=== PATIENT | female | born 1950 | race Caucasian/White ===

== ENCOUNTER → 2023-09-10 08:38 | Outpatient (REF) | payer MEDICARE, OTHER, SELFPAY ==
[2023-09-10 09:46] LABS: % Basophils 1.4 % (0-2); % Eosinophils 8.3 % (0-6); % Immature Granulocytes 0.1 % (0-0.5); % Lymphocytes 29.9 % (20.5-51.1); % Monocytes 8.4 % (1.7-9.3); % Neutrophils 51.9 % (42.2-75.2); Absolute Basophils 0.1 10^3/uL (0-0.2); Absolute Eosinophils 0.6 10^3/uL (0-0.7); Absolute Lymphocytes 2.1 10^3/uL (1.2-3.4); Absolute Monocytes 0.6 10^3/uL (0.1-0.6); Absolute Neutrophils 3.6 10^3/uL (1.4-6.5); Hematocrit 37.1 % (37.0-47.0); Hemoglobin 11.4 g/dL (12.0-16.0); Mean Corp Hgb Conc. 30.7 g/dL (33.0-37.0); Mean Corpuscular Volume 87.7 fL (81.0-99.0); Mean Platelet Volume 12.2 fL (7.4-10.4); Nucleated Red Blood Cells % 0 %; Platelet Count 247 10^3/uL (130-400); Red Blood Cell Count 4.23 10^6/uL (4.20-5.40); Red Cell Dist. Width 15.9 % (11.5-14.5)
[2023-09-10 10:06] LABS: NT-proBNP 1390 pg/ml
[2023-09-10 10:11] LABS: Protein/creatinine Ratio 0.7; Urine Protein 100 mg/dl
[2023-09-10 10:22] LABS: ALT (SGPT) 23 U/L (0-35); AST (SGOT) 28 U/L (14-36); Albumin 4.1 g/dl (3.5-5.0); Alkaline Phosphatase 104 U/L (38-126); Blood Urea Nitrogen 42 mg/dl (7-17); Calcium 9.1 mg/dl (8.4-10.2); Carbon Dioxide 30 mmol/L (22-30); Chloride 104 mmol/L (98-107); Glucose 77 mg/dl (70-99); HDL Cholesterol 44 mg/dl; LDL Cholesterol, Calculated 50 mg/dl; Potassium 4.5 mmol/L (3.5-5.1); Sodium 141 mmol/L (135-145); Total Bilirubin 0.4 mg/dl (0.2-1.3); Total Cholesterol 114 mg/dl (50-199); Total Protein 6.4 g/dl (6.3-8.2); Triglyceride 101 mg/dl (10-149); Uric Acid 4.4 mg/dl (2.5-6.2); Very Low Density Lipoprotein 20 mg/dl (0-30); eGFR 23.09
[2023-09-10 10:25] LABS: Intact PTH 72.6 pg/ml (13.6-85.8)
[2023-09-10 11:41] LABS: Glycohemoglobin (HgbA1c) 9.8 % (4.0-5.6)
== END ==
LOC: REG 08:38
PROVIDERS: ATTENDING PHYSICIAN Specialist; FAMILY PHYSICIAN Internal Medicine
DX: N18.4 Chronic kidney disease, stage 4 (severe) (principal); E87.5 Hyperkalemia; E11.59 Type 2 diabetes mellitus with other circulatory complications; Z79.4 Long term (current) use of insulin; E78.5 Hyperlipidemia, unspecified; Z00.00 Encounter for general adult medical examination without abnormal findings
CPT/HCPCS: 36415; 80048; 80053; 80061; 82570; 83036; 83880; 83970; 84156; 84550; 85025

== ENCOUNTER 2023-09-13 16:14 | Emergency (ER) | payer MEDICARE, OTHER, SELFPAY ==
[2023-09-13 16:19] VITALS: BP 149/97
--- NOTE | 2023-09-13 17:07 | ED.GENMED ---
History of Present Illness
General
Chief Complaint: DVT/Possible Blood Clot
Source: patient
Exam Limitations: none
Time Seen by Provider: 09/13/23 17:00
Travel History
Have you had any contact with someone who has COVID-19?: No
Do you have any symptoms of coronavirus? Fever > 100 degrees, chills, cough, shortness of breath, sore throat, loss of taste or smell, muscle aches, or headache?: No
History of Present Illness
History of Present Illness:
See MDM
Past History
Past History
ED Past Medical History: CAD, GERD, HTN, Hypercholesterolemia, IDDM and Other (COVID-19, anemia, peripheral vascular disease, chronic kidney disease, celiac artery dissection, anemia, HSP)
ED Past Surgical History: Cardiac
Social History
Tobacco: Non-smoker
Alcohol: Occasional
Drug: None
Personal:
Living: with family
Employment: Employed ([employer] in [employer])
Family History
Family History: Other (Father with CAD, mother with diabetes)
Phy Exam
Physical Exam
Physical Exam:
See MDM
Course
Orders/Labs/Results
Orders:
Orders
09/13/23 16:31
Periph Venous Lwr Ext Rt US [US Periph Venous LOWER Ext RT] Urgent
Comment:
Reason For Exam: pain/swelling
09/13/23 17:07
Oxycodone/Acetaminophen [Percocet 5/325] 1 tablet PO NOW STA
Vital Signs
Initial and Last Documented VS:
Initial Vital Signs
Temp Pulse Resp BP Pulse Ox
98.4 F 73 17 149/97 97
09/13/23 16:19 09/13/23 16:19 09/13/23 16:19 09/13/23 16:19 09/13/23 16:19
Last Documented Vital Signs
Temp Pulse Resp BP Pulse Ox
98.4 F 73 17 149/97 97
09/13/23 16:19 09/13/23 16:19 09/13/23 16:19 09/13/23 16:19 09/13/23 16:19
MDM/Problems Addressed
Differential Diagnosis Includes:
HPI and MDM Narrative:
73-year-old female presenting for right calf pain and swelling. This has been ongoing for a few weeks. She has had a prior arterial stent placed by vascular surgery a few years back. She called her vascular surgeon and was sent to department to
rule out DVT, per patient
Patient denies numbness or tingling or pain when she ambulates. Patient has palpable distal pulses. There is no pallor. There is no clinical signs to suggest arterial stent clot. She does have palpable varicose vein to the right lateral leg.
Will obtain ultrasound to rule out DVT
Physical exam
General: Well appearing and non-toxic
HEENT: protecting airway
Neck: appears supple
CV: No evidence of cyanosis
Resp: No accessory muscle use
Abd: Non-distended
Extremities: Mild tenderness to right calf. Palpable varicose vein to right lateral calf. Distal pulses intact. Cap refill less than 2 seconds. Sensation intact
Neuro: alert
Psych: Normal affect
Skin: Intact
Problems Addressed including Acute and Chronic Conditions affecting care:
1. Leg pain
Acuity: acute
Prognosis: stable
Details: Will obtain ultrasound to rule out DVT. No clinical evidence to suggest arterial clot
Updates
Ultrasound negative for DVT. Patient feels comfortable following up with her vascular surgeon
Differential Diagnosis (but not limited to): Superficial thrombophlebitis, calf strain, DVT
Testing considered: X-ray but no bony tenderness noted
Drug therapy (if applicable): OTC meds, please see d/c instruction regarding Rx drugs
Amount and/or Complexity of Data Reviewed
Clinical info obtained from: Patient
External data reviewed: N/A
Labs I independently reviewed (but not limited to): N/A
Radiology: Ultrasound report reviewed
Pulse Ox: not hypoxic
EKG independently reviewed: N/A
Cut Lace Machine Operator: N/A
Critical Care: N/A
Risk of Complication:
Social Determinants of health: Good social support
Discussed with other providers: N/A
Escalation of Care includes Admit/Obs: After being observed in the Emergency Department, pt stable for discharge.
Occasional wrong word or 'sound a like' substitutions may have occurred due to the inherent limitations of voice recognition software. Read the chart carefully and recognize, using context, where substitutions have occurred.
*Critical Care Note
Total Time (30-74mins, 75-104mins- exclusive of procedures): Not Applicable
ED Attending Note
-
Portions of this chart may have been created with voice recognition software.� Occasional wrong word or��sound alike� substitutions may have occurred due to the inherent limitations of voice recognition software.
Discharge Plan
Departure
Patient Disposition: Home (Routine Discharge)
Date of Disposition: 09/13/23
Time of Disposition: 18:20
Patient with high blood pressure during this ER visit?: Yes
Discharge Problem:
Varicose vein of leg
Instructions: Varicose Veins (DC), BLOOD PRESSURE
Prescriptions:
New
oxycodone 5 mg tablet
5 mg PO Q8H PRN (Reason: Pain) Qty: 7 0RF
No Action
clopidogrel 75 MG tablet
75 mg PO DAILY
ezetimibe 10 MG tablet
10 mg PO DAILY
pantoprazole 40 MG tablet,delayed release (DR/EC)
40 mg PO DAILY
sodium bicarbonate 650 MG tablet
650 mg PO BID
insulin aspart U-100 [Novolog FlexPen U-100 Insulin] 300 UNITS/3 ML insulin pen
2 - 8 units SC .SLIDING SCALE MEALS
pregabalin [Lyrica] 150 MG capsule
300 mg PO HS
zinc sulfate 220 MG capsule
220 mg PO DAILY
insulin glargine [Basaglar KwikPen U-100 Insulin] 100 UNIT/ML insulin pen
38 unit SC HS
fluconazole 100 mg Tablet
100 mg PO DAILY
Patient Comments:
for 10 days -started Tuesday
Rx Instructions:
for 10 days started 10/05
albuterol sulfate 2.5 mg /3 mL (0.083 %) Solution For Nebulization
2.5 mg INHALATION R Q3HPRN PRN (Reason: sob,wheezing)
aspirin 81 MG tablet,chewable
81 mg PO Q48H
biotin 5 mg capsule
10 mg PO DAILY
isosorbide mononitrate 30 mg Tablet Extended Release 24 Hr
30 mg PO DAILY Qty: 30 0RF
levofloxacin 250 mg Tablet
250 mg PO Q48H Qty: 2 0RF
guaifenesin 600 mg Tablet Extended Release 12hr
1,200 mg PO Q12 Qty: 0 0RF
prednisone 10 mg tablet
10 mg PO DIRECTED Qty: 30 0RF
Rx Instructions:
Taper: 40mg daily x 3 days, 30mg daily x 3 days, 20mg daily x 3 days, 10mg daily x 3 days
methylprednisolone [Medrol (Anshul)] 4 mg tablets,dose pack
4 mg PO DAILY Qty: 21 0RF
Referrals:
Joaquin Carlton MD [Family Provider] -
Activity Restrictions/Additional Instructions:
As we discussed, there is a varicose vein in your calf. It is not certain whether or not this is causing your symptoms. Please have this further evaluated by your vascular surgeon.
Interventions
Interventions:
ED- Cardiac Assessment Last Done: 09/13/23 17:31
ED- Pulmonary Assessment Last Done: 09/13/23 17:31
ED-Peripheral Vascular Assessment Last Done: 09/13/23 17:34
ED-Skin Assessment Last Done: 09/13/23 17:31
[2023-09-13] MEDS: PERCOCET 5/325 1 TABLET PO (17:17)
[2023-09-13 18:22] VITALS: BP 138/88
== END 2023-09-13 18:44 | disposition home or self-care (01) ==
LOC: EMR 16:14
PROVIDERS: EMERGENCY PHYSICIAN Student in an Organized Health Care Education/Training Program; FAMILY PHYSICIAN Internal Medicine
DX: I83.91 Asymptomatic varicose veins of right lower extremity (principal); I25.10 Atherosclerotic heart disease of native coronary artery without angina pectoris; K21.9 Gastro-esophageal reflux disease without esophagitis; I10 Essential (primary) hypertension; E78.00 Pure hypercholesterolemia, unspecified; E11.9 Type 2 diabetes mellitus without complications; D64.9 Anemia, unspecified; I73.9 Peripheral vascular disease, unspecified; I12.9 Hypertensive chronic kidney disease with stage 1 through stage 4 chronic kidney disease, or unspecified chronic kidney disease; E11.22 Type 2 diabetes mellitus with diabetic chronic kidney disease; N18.9 Chronic kidney disease, unspecified; K90.0 Celiac disease; Z86.16 Personal history of COVID-19; Z82.49 Family history of ischemic heart disease and other diseases of the circulatory system; Z83.3 Family history of diabetes mellitus
CPT/HCPCS: 99284; 93971

== ENCOUNTER → 2023-10-21 13:58 | Outpatient (REF) | payer MEDICARE, OTHER, SELFPAY | LOC: PAVMRI 13:58 | PROVIDERS: ATTENDING PHYSICIAN Surgery Vascular Surgery; FAMILY PHYSICIAN Internal Medicine | DX: I77.4 Celiac artery compression syndrome (principal); I77.79 Dissection of other specified artery | CPT/HCPCS: 74185; A9585 ==

== ENCOUNTER → 2023-11-01 14:45 | Outpatient (REF) | payer MEDICARE, OTHER, SELFPAY | LOC: RAD 14:45 | PROVIDERS: ATTENDING PHYSICIAN Surgery Vascular Surgery; FAMILY PHYSICIAN Internal Medicine | DX: I73.9 Peripheral vascular disease, unspecified (principal) | CPT/HCPCS: 93922; 93925 ==

== ENCOUNTER → 2023-11-16 12:52 | Outpatient (REF) | payer MEDICARE, OTHER, SELFPAY | LOC: RAD 12:52 | PROVIDERS: ATTENDING PHYSICIAN Internal Medicine | DX: M79.604 Pain in right leg (principal); M54.17 Radiculopathy, lumbosacral region | CPT/HCPCS: 72110 ==

== ENCOUNTER → 2023-12-30 08:29 | Outpatient (REF) | payer MEDICARE, OTHER, SELFPAY ==
[2023-12-30 09:01] LABS: Hemoglobin 11.9 g/dL (12.0-16.0)
[2023-12-30 09:53] LABS: ALT (SGPT) 15 U/L (0-35); AST (SGOT) 23 U/L (14-36); Albumin 4.1 g/dl (3.5-5.0); Alkaline Phosphatase 104 U/L (38-126); Blood Urea Nitrogen 32 mg/dl (7-17); Carbon Dioxide 25 mmol/L (22-30); Chloride 105 mmol/L (98-107); Direct Bilirubin 0.2 mg/dl (0.0-0.4); Glucose 98 mg/dl (70-99); HDL Cholesterol 43 mg/dl; LDL Cholesterol, Calculated 81 mg/dl; Phosphorus 4.4 mg/dl (2.5-4.5); Potassium 4.7 mmol/L (3.5-5.1); Sodium 139 mmol/L (135-145); Total Bilirubin 0.4 mg/dl (0.2-1.3); Total Cholesterol 147 mg/dl (50-199); Total Protein 6.2 g/dl (6.3-8.2); Triglyceride 118 mg/dl (10-149); Very Low Density Lipoprotein 23 mg/dl (0-30); eGFR 24.42
[2023-12-31 09:24] LABS: Glycohemoglobin (HgbA1c) 10.8 % (4.0-5.6)
[2023-12-31 10:15] LABS: Intact PTH 196.3 pg/ml (13.6-85.8)
== END ==
LOC: REG 08:29
PROVIDERS: ATTENDING PHYSICIAN Specialist; FAMILY PHYSICIAN Internal Medicine; OTHER PHYSICIAN Internal Medicine Cardiovascular Disease; REFERRING PHYSICIAN Surgery Vascular Surgery
DX: N18.4 Chronic kidney disease, stage 4 (severe) (principal); E11.59 Type 2 diabetes mellitus with other circulatory complications; E78.5 Hyperlipidemia, unspecified
CPT/HCPCS: 36415; 80053; 80061; 82248; 83036; 83970; 84100; 85018

== ENCOUNTER 2024-02-03 08:56 | Outpatient (RCR) | payer MEDICARE, OTHER, SELFPAY ==
[2024-02-03] MEDS: SODIUM BICARBONATE 1150 MEQ IV (09:31)
[2024-02-03 09:50] VITALS: BP 190/84
[2024-02-03 12:14] VITALS: BP 190/82
--- NOTE | 2024-02-03 15:11 | PTCARENOTE ---
On arrival to OID Bp noted to be elevated . Rechecked manually at 190/84 HR-68. BP rechecked manually post CT BP at 190/82 HR 80. Pt stated she 'has not problems with elevated BP in Months' Pt contacted Dr. Guevara office as he follows patient for
renal insufficiency. Pt reported Dr. Guevara called in script for Hydralazine 25mg daily. pt will garbage pick up worker script today.
== END 2024-02-25 23:59 | disposition home or self-care (01) ==
LOC: OID 08:56
PROVIDERS: ATTENDING PHYSICIAN Surgery Vascular Surgery
DX: I73.9 Peripheral vascular disease, unspecified (principal)
CPT/HCPCS: 75635; 96365; Q9967

== ENCOUNTER → 2024-02-15 09:37 | Outpatient (REF) | payer MEDICARE, OTHER, SELFPAY | LOC: RAD 09:37 | PROVIDERS: ATTENDING PHYSICIAN Internal Medicine | DX: R20.2 Paresthesia of skin (principal); M21.372 Foot drop, left foot; N28.9 Disorder of kidney and ureter, unspecified; R29.898 Other symptoms and signs involving the musculoskeletal system; I73.9 Peripheral vascular disease, unspecified | CPT/HCPCS: 72110 ==

== ENCOUNTER → 2024-02-16 07:44 | Outpatient (REF) | payer MEDICARE, OTHER, SELFPAY | LOC: DHCBC/DCA 07:44 | PROVIDERS: ATTENDING PHYSICIAN Internal Medicine Cardiovascular Disease; FAMILY PHYSICIAN Internal Medicine | DX: Z01.818 Encounter for other preprocedural examination (principal); I25.10 Atherosclerotic heart disease of native coronary artery without angina pectoris | CPT/HCPCS: 78452; 93017; A9500; J2785 ==

== ENCOUNTER → 2024-02-17 15:18 | Outpatient (REF) | payer MEDICARE, OTHER, SELFPAY | LOC: RAD 15:18 | PROVIDERS: ATTENDING PHYSICIAN Internal Medicine; OTHER PHYSICIAN Specialist; OTHER PHYSICIAN Surgery Vascular Surgery; REFERRING PHYSICIAN Internal Medicine Cardiovascular Disease | DX: M21.372 Foot drop, left foot (principal); N28.9 Disorder of kidney and ureter, unspecified; R29.898 Other symptoms and signs involving the musculoskeletal system; I73.9 Peripheral vascular disease, unspecified | CPT/HCPCS: 70450 ==

== ENCOUNTER 2024-02-23 09:22 | Inpatient (IN) | payer MEDICARE, OTHER, SELFPAY ==
[2024-02-20 10:26] VITALS: BMI 27.7
[2024-02-20 11:04] LABS: % Basophils 0.9 % (0-2); % Eosinophils 7.2 % (0-6); % Immature Granulocytes 0.3 % (0-0.5); % Lymphocytes 23.3 % (20.5-51.1); % Monocytes 7.9 % (1.7-9.3); % Neutrophils 60.4 % (42.2-75.2); Absolute Basophils 0.1 10^3/uL (0-0.2); Absolute Eosinophils 0.6 10^3/uL (0-0.7); Absolute Lymphocytes 1.8 10^3/uL (1.2-3.4); Absolute Monocytes 0.6 10^3/uL (0.1-0.6); Absolute Neutrophils 4.7 10^3/uL (1.4-6.5); Hematocrit 34.8 % (37.0-47.0); Hemoglobin 11.3 g/dL (12.0-16.0); Mean Corp Hgb Conc. 32.5 g/dL (33.0-37.0); Mean Corpuscular Hgb 27.4 pg (27.0-31.0); Mean Corpuscular Volume 84.5 fL (81.0-99.0); Mean Platelet Volume 11.9 fL (7.4-10.4); Nucleated Red Blood Cells % 0 %; Platelet Count 261 10^3/uL (130-400); Red Blood Cell Count 4.12 10^6/uL (4.20-5.40); Red Cell Dist. Width 14.5 % (11.5-14.5); White Blood Cell Count 7.8 10^3/uL (4.8-10.8)
[2024-02-20 11:14] LABS: INR 1.08; PT 13.8 Sec (11.4-14.6)
[2024-02-20 11:15] LABS: APTT 31.2 Sec (23.4-35.0)
[2024-02-20 11:22] LABS: Blood Urea Nitrogen 37 mg/dl (7-17); Calcium 9.3 mg/dl (8.4-10.2); Carbon Dioxide 28 mmol/L (22-30); Chloride 105 mmol/L (98-107); Estimated Creatinine Clearance 22 ml/min; Glucose 240 mg/dl (70-99); Potassium 5.4 mmol/L (3.5-5.1); Sodium 142 mmol/L (135-145); eGFR 25.73
[2024-02-23] VITALS (32 sets, daily range): BP systolic 77–229; BP diastolic 34–85; BMI 28.0
[2024-02-23] MEDS: PERIDEX 0.12% ORAL RINSE 15 ML PO (10:24)
[2024-02-23] MEDS: BACTROBAN NASAL 1 GRAM NASAL (10:25)
[2024-02-23] MEDS: NSS 500 IV (10:25)
[2024-02-23 11:01] LABS: Glucose - Point of Care 74 mg/dl (70-99)
--- NOTE | 2024-02-23 11:57 | W.SUR.PREOP ---
Addendum entered and electronically signed by Chapin Stahl MD 02/23/24 12:16:
Notes patient had had positive stress test. Evaluated by rate analyst. I spoke at length to Dr. Melvin Danielson. He had felt that a catheterization may not be as beneficial likely due to her small vessel disease that may not be amenable to
percutaneous intervention given her other medical concerns including chronic kidney insufficiency, he felt that for a lower cardiac risk procedure such as femoral endarterectomy (lower stress on the heart), he fell at reasonable to proceed. He
discussed with the patient also the option of performing catheterization for him. Patient declined however. Therefore we will proceed as planned as per his recommendation.
Original Note:
Pre-Operative Surgical Note
-
I have examined this patient prior to the performance of the scheduled procedure.
The patient's condition is unchanged from the time of the current History and
Physical and the patient is able to undergo the scheduled procedure.
[2024-02-23 13:35] LABS: Glucose - Point of Care 50 mg/dl (70-99)
[2024-02-23 14:14] LABS: Glucose - Point of Care 180 mg/dl (70-99)
--- NOTE | 2024-02-23 15:56 | W.SUR.POST ---
Surgical Immediate Post Op
Note
Pre Op Diagnosis: PAD
Post Op Diagnosis: same
Procedure Performed: Right femoral endarterectomy with bovine pericardial patch angioplasty, shockwave lithotripsy and stent right iliac artery
Primary Surgeon: Favio
Secondary Surgeons: Kingsley MURRAY
Anesthesia: general
Estimated Blood Loss: 50cc
Fluids: see anesthesia flow sheet
Drains/Shunts: none
Specimens/Cultures: femoral plaque
Doppler/Duplex/Angio (Y/N): Y
Complications: none
Operative Findings: 1+DP pulse
[2024-02-23 17:11] LABS: Glucose - Point of Care 162 mg/dl (70-99)
--- NOTE | 2024-02-23 17:30 | SUR.PHASEI ---
Bp drop in PACU, 90/45-95/48. Anesthesia made aware and vascular SOUP PERSON Dreger informed. patient started on Neosynephrine gtt. Tiffani george RN BSN.
[2024-02-23 17:33] LABS: Hematocrit 32.3 % (37.0-47.0); Hemoglobin 10.5 g/dL (12.0-16.0); Mean Corp Hgb Conc. 32.5 g/dL (33.0-37.0); Mean Corpuscular Hgb 27.3 pg (27.0-31.0); Mean Corpuscular Volume 84.1 fL (81.0-99.0); Mean Platelet Volume 12.3 fL (7.4-10.4); Platelet Count 207 10^3/uL (130-400); Red Blood Cell Count 3.84 10^6/uL (4.20-5.40); Red Cell Dist. Width 14.7 % (11.5-14.5); White Blood Cell Count 12.7 10^3/uL (4.8-10.8)
[2024-02-23 17:39] LABS: Blood Urea Nitrogen 34 mg/dl (7-17); Calcium 7.9 mg/dl (8.4-10.2); Carbon Dioxide 18 mmol/L (22-30); Estimated Creatinine Clearance 25 ml/min; Glucose 158 mg/dl (70-99); eGFR 31.27
[2024-02-23] MEDS: NEO-SYNEPHRINE 250 IV (17:39)
[2024-02-23 17:48] LABS: Chloride 113 mmol/L (98-107); Potassium 3.8 mmol/L (3.5-5.1); Sodium 143 mmol/L (135-145)
[2024-02-23] MEDS: NSS 1000 IV (17:50)
--- NOTE | 2024-02-23 17:59 | SUR.PHASEI ---
Report to George INFANTRY INDIRECT FIRE CREWMEMBER. Patient restful. Spoke to her son. Tiffani Phillips RN BSN.
[2024-02-23] MEDS: PLAVIX 300 MG PO (18:06)
--- NOTE | 2024-02-23 18:45 | PTCARENOTE ---
Rec'd patient from PACU. Neurovascular check completed with AUTISTIC TEACHER. +Doppler pulses. B/l LE pink, cool. Right groin aquacell dressing intact. VSS. Chon and IVFs infusing as ordered.
[2024-02-23 19:29] LABS: Glucose - Point of Care 216 mg/dl (70-99)
[2024-02-23] MEDS: NOVOLOG FLEXPEN-MODERATE RESISTANCE 3 UNITS SC (19:37)
[2024-02-23] MEDS: DILAUDID 0.5 MG IV (19:58)
[2024-02-23] MEDS: PROTONIX 40 MG PO (19:58)
[2024-02-23] MEDS: SODIUM BICARBONATE 650 MG PO (19:58)
[2024-02-23] MEDS: APRESOLINE PO (21:15)
[2024-02-23 21:42] LABS: Glucose - Point of Care 248 mg/dl (70-99)
[2024-02-23] MEDS: LANTUS 0.38 UNITS SC (22:32)
[2024-02-23] MEDS: HEPARIN 5000 UNITS SC (22:36)
[2024-02-23] MEDS: LIPITOR 40 MG PO (22:36)
[2024-02-23] MEDS: ULORIC 40 MG PO (22:36)
[2024-02-23 23:08] LABS: INR 1.12; PT 14.4 Sec (11.4-14.6)
[2024-02-23 23:09] LABS: APTT 34.1 Sec (23.4-35.0)
[2024-02-24] VITALS (23 sets, daily range): BP systolic 112–190; BP diastolic 53–109; BMI 28.8
[2024-02-24] MEDS: ROXICODONE 5 MG PO ×2 (02:26→08:20)
[2024-02-24] MEDS: NSS 1000 IV (04:44)
[2024-02-24] MEDS: DILAUDID 0.5 MG IV ×2 (04:44→12:45)
[2024-02-24 05:15] LABS: Hematocrit 33.2 % (37.0-47.0); Hemoglobin 10.6 g/dL (12.0-16.0); Mean Corp Hgb Conc. 31.9 g/dL (33.0-37.0); Mean Corpuscular Volume 84.5 fL (81.0-99.0); Mean Platelet Volume 12.3 fL (7.4-10.4); Platelet Count 232 10^3/uL (130-400); Red Blood Cell Count 3.93 10^6/uL (4.20-5.40); Red Cell Dist. Width 14.9 % (11.5-14.5); White Blood Cell Count 15.7 10^3/uL (4.8-10.8)
[2024-02-24 05:23] LABS: INR 1.19; PT 15.2 Sec (11.4-14.6)
[2024-02-24 05:24] LABS: APTT 30.6 Sec (23.4-35.0)
[2024-02-24 05:35] LABS: Blood Urea Nitrogen 38 mg/dl (7-17); Calcium 8.8 mg/dl (8.4-10.2); Carbon Dioxide 20 mmol/L (22-30); Chloride 111 mmol/L (98-107); Estimated Creatinine Clearance 23 ml/min; Glucose 171 mg/dl (70-99); Potassium 5.2 mmol/L (3.5-5.1); Sodium 141 mmol/L (135-145); eGFR 27.37
[2024-02-24 08:18] LABS: Glucose - Point of Care 138 mg/dl (70-99)
[2024-02-24] MEDS: NOVOLOG FLEXPEN-MODERATE RESISTANCE SC ×2 (08:18→17:50)
[2024-02-24] MEDS: APRESOLINE 25 MG PO ×2 (08:19→19:56)
[2024-02-24] MEDS: PLAVIX 75 MG PO (08:20)
[2024-02-24] MEDS: VITAMIN D3 (cholecalciferol) 50 MCG PO (08:20)
[2024-02-24] MEDS: HEPARIN 5000 UNITS SC ×2 (08:20→16:54)
[2024-02-24] MEDS: SODIUM BICARBONATE 650 MG PO ×2 (08:20→19:56)
[2024-02-24] MEDS: PROTONIX 40 MG PO ×2 (08:20→19:56)
[2024-02-24] MEDS: ZETIA 10 MG PO (08:20)
--- NOTE | 2024-02-24 09:05 | W.PN.VS ---
Today's Communication / Plan
-
Seen and assessed with Dr. Cortez
Assessment/Plan
-
POD1 Right femoral endarterectomy with bovine pericardial patch angioplasty, shockwave lithotripsy and stent right iliac artery
Plan:
-Out of bed/ambulate
-Wean O2 to off
-Increase diet
-DC IV fluids
-May transfer to [address] [place] [address]/[address] [place] [address]
Subjective Data
-
Date of Service: February 24, 2024
Patient seen at bedside this a.m. with Dr. Cortez. Patient offers no complaints at this time and expresses her wishes to go home. No events overnight
Objective Data
-
Vital Signs
Temp Pulse Resp BP Pulse Ox
98.4 F 83 9 141/71 98
02/24/24 07:30 02/24/24 05:15 02/24/24 05:15 02/24/24 05:00 02/24/24 05:15
Intake and Output
02/23/24 02/24/24 02/25/24
06:59 06:59 06:59
Intake Total 961 / 961
Output Total 695 / 695
Balance 266 / 266
Intake:
IV fluids (Total) 961 / 961
NSS 880 / 880
neosynephrine 6 / 6
norm 75 / 75
Output:
UrineDana 695 / 695
Lab Results
02/24/24 05:01
02/24/24 05:01
Calcium 8.8 mg/dl (8.4-10.2) 02/24/24 05:01
Physical Exam
-
AAOx3
No tachypnea on 2 L nasal cannula
No tachycardia
Abdomen soft
Groin sites clean, dry, intact, no drainage noted, flat and soft
Bilateral feet warm, palpable DP pulse
[2024-02-24] MEDS: LASIX 40 MG PO (10:31)
[2024-02-24] MEDS: ULTRAM 25 MG PO ×2 (10:32→16:54)
[2024-02-24] MEDS: ALDACTONE PO (11:22)
--- NOTE | 2024-02-24 11:33 | W.[place]-PDMP ---
[place]-PD[place]
-
Checked the [place]- Prescription Drug Monitoring Program website, no red flags identified; safe to proceed with prescription. Called in tramadol as patient prefers this, she last filled 30 days of tramadol just over 1 month ago
[2024-02-24 12:44] LABS: Glucose - Point of Care 171 mg/dl (70-99)
[2024-02-24] MEDS: NOVOLOG FLEXPEN-MODERATE RESISTANCE 1 UNITS SC (12:51)
--- NOTE | 2024-02-24 12:54 | CON.INTV ---
Consultation
Consultation Request
Date/Time Consultation Requested: 02/24/2024
Date/Time Consultation Performed: 02/24/2024
Requesting Provider: Dr. Stahl
Performing Provider: Dr. Davon Bernardo
Reason for Consultation: Status post femoral endarterectomy
Medical History
-
History of Present Illness:
74-year-old woman with multiple comorbidities, including peripheral arterial disease. She was deemed candidate for revascularization. And underwent right femoral endarterectomy with patch angioplasty on 02/24/2024. Currently sitting out of bed.
Denies any significant pain. Mild discomfort on the right groin.
Denies shortness of breath.
Denies cough, wheezing or phlegm production.
Hemodynamically stable overnight.
Tolerating diet
Past Medical History
Past Medical History: Other (See assessment and plan)
Social History
Tobacco: Non-smoker
Alcohol: Occasional
Drug: None
Living: With Family
Employment: Employed
Family History
Family History: Reviewed & Not Pertinent
Allergies / Home Medications
Allergies
Allergy/AdvReac Type Severity Reaction Status Date / Time
MARCELL Inhibitors Allergy Swelling/AN Verified 02/17/24 09:24
[Marcell Inhibitors] GIOEDEMA
chamomile flower Allergy Rash Verified 02/17/24 09:24
Sulfa (Sulfonamide Allergy Rash Verified 02/17/24 09:24
Antibiotics)
sulfite Allergy VASCULITIS Verified 02/17/24 09:24
Home Medications
�Medication �Instructions �Recorded �Confirmed �Last Taken �Type
clopidogrel 75 mg tablet 75 mg PO DAILY Blood clot 05/17/19 02/23/24 02/09/24 History
prevention/tx
ezetimibe 10 mg tablet 10 mg PO DAILY High cholesterol 05/17/19 02/23/24 02/22/24 20:00 History
insulin aspart U-100 100 unit/mL 2 - 8 units SC .SLIDING SCALE 05/08/20 02/17/24 02/03/24 06:00 History
(3 mL) subcutaneous pen (Novolog MEALS Diabetes 2 units
FlexPen U-100 Insulin aspart)
sodium bicarbonate 650 mg tablet 650 mg PO BID Electrolyte Repletion 05/08/20 02/23/24 02/22/24 20:00 History
pregabalin 150 mg capsule (Lyrica) 300 mg PO HS Pain 07/11/20 02/23/24 02/22/24 20:00 History
insulin glargine 100 unit/mL (3 38 unit SC HS Diabetes 07/10/21 02/23/24 02/22/24 22:00 History
mL) subcutaneous pen (Basaglar
KwikPen U-100 Insulin)
atorvastatin 40 mg tablet 40 mg PO HS High Cholesterol 02/03/24 02/23/24 02/22/24 20:00 History
cholecalciferol (vitamin D3) 50 50 mcg PO DAILY Supplement 02/03/24 02/23/24 02/22/24 05:30 History
mcg (2,000 unit) capsule (Vitamin
D3)
coenzyme Q10 400 mg capsule (Co 400 mg PO HS Supplement 02/03/24 02/23/24 02/21/24 20:30 History
Q-10)
febuxostat 40 mg tablet 40 mg PO HS Gout 02/03/24 02/23/24 02/22/24 20:00 History
furosemide 40 mg tablet (Lasix) 40 mg PO DAILY Fluid 02/03/24 02/23/24 02/22/24 05:30 History
Retention/Swelling
spironolactone 25 mg tablet 25 mg PO DAILY Fluid 02/03/24 02/23/24 02/22/24 20:00 History
Retention/Swelling
hydralazine 25 mg tablet 25 mg PO BID Blood Pressure 02/17/24 02/23/24 02/22/24 20:00 History
tramadol 25 mg tablet 25 mg PO Q6H PRN pain 02/23/24 02/23/24 02/21/24 20:00 History
tramadol 50 mg tablet 25 mg (1/2 x 50 mg) PO Q6HPRN PRN 02/24/24 Unknown Rx
MODERATE PAIN #10 tabs
Review of Systems
Vitals / Labs / Diagnostic Testing
Vital Signs
Temp Pulse Resp BP Pulse Ox
98.4 F 82 18 190/79 98
02/24/24 12:39 02/24/24 12:39 02/24/24 12:39 02/24/24 12:39 02/24/24 12:39
Lab Data
02/24/24 05:01
02/24/24 05:01
Laboratory Results
02/23/24 02/24/24
17:11 05:01
PT 14.4 15.2 H
INR 1.12 1.19
APTT 34.1 30.6
Microbiology
02/20/24 10:38 Nose MRSA Screen - Final
No Methicillin Resistant Staphylococcus aureus isolated.
Diagnostic Testing:
Physical Exam
-
HEENT: Normocephalic
Cardiovascular: S1/S2
Respiratory: Clear and Non-Labored Respirations
GI: Soft and Non Distended
Neurology: Awake, Alert and Oriented
Skin: Warm
General: Comfortable
Assessment
-
-Status post right femoral endarterectomy with bovine pericardial patch angioplasty, shockwave lithotripsy and stent right iliac artery-Dr. Stahl 02/23/2024
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
CAD, s/p stents
Chronic bronchitis
COVID pneumonia: adm DH 12-17 to 30 '20 (adm post syncope), received dexamethasone/remdesivir, weaned off O2 PTD
Developed mild COVID-associated ILD changes
HTN
CKD
DM
GERD
Tonsillectomy
Non-smoker
ACEi-related angioedema
Henoch-Schonlein purpura
Gastric bypass 2010
ALISHA, mild, with nocturnal hypoxemia
PAD, SFA stent Apr 2020
Sulfa allergy: rash, vasculitis
-
Plan recommendation:
Postoperative surgical intensive care unit monitoring
Supplemental oxygen as needed
Incentive spirometry
Aspiration precautions
Nebulizers if needed-currently not bronchospastic
Chest x-ray 02/23/2024: Reviewed showed stable chronic parenchymal changes. No acute pulmonary disease
Neuro and vascular checks per protocol
Vascular surgery following-correspondence and operative notes reviewed
Cortez has been discontinued
Arterial line has been discontinued
Increase activity as able
Possible discharge planning
Restart outpatient medications
Follow hemoglobin-no evidence for bleeding from
Right groin is without hematoma. Mildly tender.
Peripheral pulses in the
DVT prophylaxis
Advance diet
Increase activity as able
-
Transferred to floors.
Critical care team will sign off.
Please call pulmonary if any respiratory issues arise
--- NOTE | 2024-02-24 13:20 | PTCARENOTE ---
Received pt this am c/o of some discomfort to r groin site/numbness at inner thigh area and numbness to l foot prior to admission. Both feet warm, normal movement good cap refill doppler pulses as charted but unable to consistently find l pt,
intact l dp. Pt assisted up to chair, tolerated well. IVF capped and enrique removed as ordered. Pt assisted to bathroom and voided prior to transfer to new room. Report to Jessica prior to transfer to new room. Pt reported she would notify
spouse of new room. He was made aware this am that she was downgraded. Otherwise please refer to flowsheet.
[2024-02-24] MEDS: MIRALAX PO (14:37)
[2024-02-24] MEDS: APRESOLINE 10 MG IV (14:37)
[2024-02-24] MEDS: TYLENOL 650 MG PO (14:39)
[2024-02-24] MEDS: MORPHINE SULFATE 2 MG IV ×2 (14:39→19:56)
--- NOTE | 2024-02-24 14:39 | CM ---
met with patient at bedside.patient lives with her in house with 3-4 maeve,her bed and bath is on the second level.she amb i and is I with her adl.her pcp is dr molly mcintyre and she uses [address] in [place].
patient has had a vn after she had covid,no episodes of ip rehab.
patient is pod#1 left femoral endartrectomy/bovine pericardial patch angioplasty/right iliac artry stent.wean o2,oob/ambulate,increase diet,pt/ot evals pending.patient was not sure she wanted home care and wants to wait until she is seen by
therapy.tx to 2 north or 2 south..patient with suportive .Plan:home vs vn/home pt.
--- NOTE | 2024-02-24 16:55 | OR.RPT ---
Operative Report
Operative Report
PROCEDURE DATE: 02/23/2024
Preoperative diagnosis: Ischemic rest pain, severe multilevel PAD right lower extremity.
Postoperative diagnosis: Same
Procedure:
1. Extensive right ilio femoral endarterectomy (distal external iliac artery, common femoral artery, proximal profunda femoris artery, superficial femoral artery) with bovine pericardial patch angioplasty.
2. Aortogram and pelvic angiogram.
3. Shockwave intravascular lithotripsy angioplasty with 9 mm shockwave L6 balloon right common iliac artery.
4. Placement of balloon mounted Newport Viabahn 8 mm x 59 mm covered stent right common iliac artery.
5. Supervision and interpretation.
Surgeon: Favio
I&C Technician: ESTEFANY Wynn required for all aspects of open surgical portion of procedure including assistance with traction/countertraction, following a suture line, assistance with closure.
Complications: None
Anesthesia: General
Indications for procedure:
Severe claudication and ischemic rest pain. Risk/benefits/alternatives of right lower extremity revascularization were all fully discussed with the patient. She understood all wish to proceed.
Description of procedure:
Patient was identified brought to the operating room placed on the table in supine position. After the adequate administration of anesthesia she was prepped and draped in the standard surgical fashion. A standard preoperative timeout was
undertaken and everybody was in agreement the plan. A longitudinal incision was made in the right groin that was carried through skin subcutaneous tissue. Using the electrocautery dissected through the subcutaneous tissue. Any lymphatic type
vessels or tissue were ligated between silk ties and then divided. I then identified the common femoral artery as it emerged from underneath inguinal ligament. It was noted to be hardened with calcified plaque. I continued to dissect it
peripherally on its anterior surface until I identified the femoral bifurcation. The superficial femoral artery was then dissected for approximately 3 to 4 cm and circumferentially dissected and a vessel loop passed around it. I now then dissected
the origin of the profunda femoris artery. I dissected carefully to the first branch point. I then began dissecting beyond here. However I noticed that it did not really soften up anywhere. There was some calcified eccentric plaque throughout
the artery making it hard to palpation. I confirmed on CT scan imaging as well that there was really no soft spot on the profunda even extending very far down. There was some plaque throughout. Therefore I found a soft'rudolph spot that I felt was
reasonable to clamp, and circumferentially dissected it here. Passed a vessel loop around it. Now I dissected any additional femoral branches including a posterior profunda branch proximally, and an additional posterior common femoral artery
branch. I now dissected underneath the inguinal ligament using a [place] type retractor to retract the ligament upwards. Any crossing veins were ligated between silk ties and divided. I noted the right circumflex iliac artery branch and
circumferentially dissected this and passed a vessel loop around it. A couple centimeters proximal to here I could palpate the end of the plaque. This was quite a proximal dissection extent, but I was able to circumferentially dissect there and
passed a vessel loop around where it was softer and clamp will. At this point I then gave the patient an appropriate dose of heparin. Once this had circulated for 3 minutes I clamped my outflow arteries or tightened my Vesseloops which had been
doubled. I then placed a Derra clamp on the distal external iliac artery. I now made arteriotomy on the distal common femoral artery and extended it distally onto the superficial femoral artery for a couple centimeters. I then extended proximally
up to the very proximal common femoral artery/distal external iliac artery. There was bulky calcified plaque throughout this entire bed, and the plaque resulted in essentially occlusion at the origin of the profunda with a very bulky nodule of
plaque. In addition in the mid to distal common femoral artery there were 2 locations where it resulted in severe stenoses. I now used a [place] to create an endarterectomy plane and endarterectomized the plaque from the mid common femoral artery
out to the superficial femoral artery. The plaque was bulky in the superficial femoral artery and I did tease it out. However there was some residual plaque still in the superficial femoral artery. However I just grasped the plaque now and
everted plaque out of the origin of the profunda. I then tease this plaque out and cut it/transected in the proximal common femoral artery. This plaque was then sent off for specimen. I now grasped the additional plaque posteriorly in the
proximal common femoral artery and used a [place] to endarterectomized it all the way back close to the clamp. I was able to shift my clamps slightly more cephalad. I then tease the plaque out completely pulling it out of the proximal common femoral
and even the distal external iliac artery well proximal to my end of the arteriotomy. I could look up the barrel of the arteriotomy site in the common femoral and distal external iliac artery and could see the endpoint here. Any fine debris was
removed with fine forceps. But otherwise the endpoint looked nice. I then removed any other debris throughout the endarterectomy bed with fine forceps. I now carefully inspected the origin of the profunda. There was still some circumferential
thickening of the intima or plaque about a centimeter beyond the origin where it ended the plaque endpoint prior by pulling it out. However I just freshen the edges of that plaque/residual intima such that any fine debris or frayed debris was
removed. I now had a nice circular ring of slight thickening/plaque but it did not result in any residual stenosis in the profound at this point. Given that the plaque extended continuously throughout the profunda I felt that this was a very good
endpoint. I now turned my attention to the superficial femoral artery. There was extensive plaque throughout the superficial femoral artery based on imaging as well. I now continue to dissect a couple centimeters further and shifted my plaque but
there was no endpoint to the hard plaque. Therefore had to place a clamp on the superficial femoral artery more distally. I then tease my plaque out further and was able to achieve a reasonable endpoint. As with the profunda there was still a
ring of continuous plaque but now the resultant lumen was reasonable. Any fine debris was removed with fine forceps. I felt that this was is good as endpoints as I could achieve given the diffuse extensive nature of the atherosclerosis. At this
point I irrigated heparinized saline. I then used a long bovine pericardial patch as well patch angioplasty with a running 5-0 Prolene suture. Prior to completing and tying down my suture line I backbled each branch of the artery and then flushed
heparinized saline again and then completed and tied in my suture line. Now I released flow in the [place] arteries. There is excellent pulsatile flow throughout the patched arteries and into the superficial femoral and profunda femoris arteries.
Now I punctured the patch using a micropuncture needle in the mid segment of the patch in a retrograde fashion (cephalad). I then advanced a micropuncture sheath and then exchanged for a 0.035 inch wire and a 7 Persian sheath. My wire went directly
up into the aorta. I then advanced a glide catheter and performed an arteriogram to identify the common iliac artery and the iliac bifurcation on the right side. As noted on CT scan imaging there was bulky plaque in the proximal right common iliac
artery. I now exchanged for a 0.018 inch wire and used a 9 mm intravascular lithotripsy balloon (shockwave L6) for plaque modification due to the severe bulky nature of the plaque (I did not think that a stent primarily without plaque modification
would expand out sufficiently and would potentially result in failure if not performing intravascular lithotripsy). I then performed repeated cycles in the standard fashion of low pressure (4 rock) inflation of the balloon and administration of the
intravascular lithotripsy. And then inflation to 6 rock, followed by deflation and then repositioning of the balloon. This was done several times to achieve adequate lithotripsy of the plaque. Next, I exchanged for a 0.035 inch wire and then
primarily stented the segment of bulky plaque/stenosis since there was significant residual stenosis even after the intravascular lithotripsy using a Newport VBX 8 mm x 59 mm covered stent. Care was taken to avoid coverage of the internal iliac artery
origin. Completion angiogram now demonstrated excellent result with widely patent stent and good flow through it. The external iliac artery appeared generally patent with no significant stenosis. The endarterectomy site endpoints appeared nice
with no significant residual stenosis. (The femoral angiogram was performed and demonstrated this). At this point I was very satisfied. I irrigated. I achieved full hemostasis. I gave protamine to reverse the heparin. I confirmed hemostasis.
I then closed in layers using a couple layers of 2-0 Vicryl running suture to reapproximate the femoral sheath and the subcutaneous/lymphatic layers. We then closed the more superficial layers with 3-0 Vicryl running deep dermal layer followed by 4
Monocryl subcuticular stitch. Dermabond was applied. The patient tolerated the procedure well. Upon completion she had a weakly palpable DP pulse.
[2024-02-24 17:29] LABS: Glucose - Point of Care 145 mg/dl (70-99)
[2024-02-24 22:17] LABS: Glucose - Point of Care 89 mg/dl (70-99)
[2024-02-24] MEDS: ULORIC 40 MG PO (22:25)
[2024-02-24 23:52] LABS: Glucose - Point of Care 109 mg/dl (70-99)
--- NOTE | 2024-02-25 | W.PN.UPDATE ---
Update Note
Progress Note Update
pt with poor appetite today. BG 89. Due for lantus 38units
HS snack encouraged
After HS snack BG 109--> will decrease lantus tonight with poor appetite
[2024-02-25] MEDS: LANTUS SC (00:07)
[2024-02-25] MEDS: LANTUS 0.15 UNITS SC (00:13)
[2024-02-25] MEDS: LIPITOR 40 MG PO (00:14)
[2024-02-25] MEDS: HEPARIN 5000 UNITS SC ×3 (00:14→16:35)
[2024-02-25 07:32] VITALS: BP 111/62
[2024-02-25 08:11] LABS: Glucose - Point of Care 108 mg/dl (70-99)
--- NOTE | 2024-02-25 08:38 | W.PN.VS ---
Today's Communication / Plan
-
Discharge
Assessment/Plan
-
POD2 Right femoral endarterectomy with bovine pericardial patch angioplasty, shockwave lithotripsy and stent right iliac artery
Plan:
Home
F/U with Stahl in the office
Subjective Data
-
Date of Service: February 25, 2024
Doing great
No events overnight
Interested in going home
Objective Data
-
Vital Signs
Temp Pulse Resp BP Pulse Ox
98.4 F 90 17 111/62 96
02/25/24 07:32 02/25/24 07:32 02/25/24 07:32 02/25/24 07:32 02/25/24 07:32
Intake and Output
02/24/24 02/25/24 02/26/24
06:59 06:59 06:59
Intake Total 1041 / 1121 1500 / 1500
Output Total 695 / 695 150 / 150
Balance 346 / 426 1350 / 1350
Intake:
Oral fluids 1180 / 1180
IV fluids (Total) 1041 / 1121 320 / 320
NSS 880 / 880
Nss 1,000 ml @ 80 mls/hr IV . 80 / 160 320 / 320
[id number] [facility] Rx#:[id number]
neosynephrine 6 / 6
norm 75 / 75
Output:
Urine, Cortez 695 / 695 150 / 150
Other:
Number of approximated SMALL 1
amounts of urine
Number of approximated MODERATE 1
amounts of urine
Calcium 8.8 mg/dl (8.4-10.2) 02/24/24 05:01
Physical Exam
-
NAD
Alert/oriented
Non labored breathing
Right groin incision clean/dry
Feet warm bilat
[2024-02-25] MEDS: NOVOLOG FLEXPEN-MODERATE RESISTANCE SC (09:20)
[2024-02-25] MEDS: PROTONIX 40 MG PO ×2 (09:25→20:26)
[2024-02-25] MEDS: ZETIA 10 MG PO (09:25)
[2024-02-25] MEDS: PLAVIX 75 MG PO (09:25)
[2024-02-25] MEDS: SODIUM BICARBONATE 650 MG PO ×2 (09:25→20:26)
[2024-02-25] MEDS: MIRALAX 17 GRAMS PO (09:25)
[2024-02-25] MEDS: LASIX 40 MG PO (09:25)
[2024-02-25] MEDS: VITAMIN D3 (cholecalciferol) 50 MCG PO (09:25)
[2024-02-25] MEDS: APRESOLINE PO (09:26)
[2024-02-25] MEDS: ALDACTONE PO (09:26)
[2024-02-25 09:30] LABS: Hematocrit 34.4 % (37.0-47.0); Hemoglobin 11.2 g/dL (12.0-16.0); Mean Corp Hgb Conc. 32.6 g/dL (33.0-37.0); Mean Corpuscular Hgb 27.8 pg (27.0-31.0); Mean Corpuscular Volume 85.4 fL (81.0-99.0); Mean Platelet Volume 12.2 fL (7.4-10.4); Platelet Count 219 10^3/uL (130-400); Red Blood Cell Count 4.03 10^6/uL (4.20-5.40); Red Cell Dist. Width 15.1 % (11.5-14.5); White Blood Cell Count 11.9 10^3/uL (4.8-10.8)
[2024-02-25 09:49] LABS: Blood Urea Nitrogen 39 mg/dl (7-17); Calcium 9.1 mg/dl (8.4-10.2); Carbon Dioxide 24 mmol/L (22-30); Chloride 105 mmol/L (98-107); Estimated Creatinine Clearance 24 ml/min; Glucose 105 mg/dl (70-99); Potassium 4.7 mmol/L (3.5-5.1); Sodium 142 mmol/L (135-145)
[2024-02-25 10:32] LABS: Glucose - Point of Care 101 mg/dl (70-99)
--- NOTE | 2024-02-25 10:42 | CM ---
Addendum entered by Lesley Jade 02/25/24 15:16:
Patient indicated patient was more confused today and has concerns about taking her home. PT/OT recommending acute rehab/SNF if confusion is not baseline, vs home with home VN if patient baseline is same as previously. Further medical work
up ongoing. CM will continue to follow for discharge planning needs.
Plan; home with VN vs SNF; pending baseline per PT/OT
Original Note:
Patient seen at bedside, IMM completed and signed form placed on chart. Patient to be assessed by PT/OT and functional needs to confirm ability to go home. Per nursing patient to have further testing prior to discharge. CM will continue to follow
for discharge planning needs.
Plan; home with VN vs SNF vs home with no needs pending assessments/ medical treatment plan
[2024-02-25 10:56] VITALS: BP 175/79; BP 183/75; PULSE 87; O2SAT 99
[2024-02-25 12:09] LABS: Glucose - Point of Care 158 mg/dl (70-99)
[2024-02-25 12:45] LABS: Urine Albumin Trace (Neg - Trace); Urine Bilirubin Negative (Negative); Urine Character Clear (Clear); Urine Color Yellow; Urine Glucose Negative (Negative); Urine Ketone Negative (Negative); Urine Leukocyte Negative (Negative); Urine Nitrite Negative (Negative); Urine Occult Blood Negative (Negative); Urine Urobilinogen Negative (Neg - 1+)
[2024-02-25] MEDS: NOVOLOG FLEXPEN-MODERATE RESISTANCE 1 UNITS SC ×2 (12:46→16:39)
[2024-02-25 15:47] VITALS: BP 117/67
[2024-02-25 16:35] LABS: Glucose - Point of Care 150 mg/dl (70-99)
[2024-02-25] MEDS: MORPHINE SULFATE 2 MG IV (16:48)
[2024-02-25] MEDS: APRESOLINE 25 MG PO (20:26)
[2024-02-25 21:34] LABS: Glucose - Point of Care 120 mg/dl (70-99)
[2024-02-25 23:07] VITALS: BP 113/63
[2024-02-26] VITALS (10 sets, daily range): BP systolic 128–211; BP diastolic 69–94
[2024-02-26] MEDS: LIPITOR 40 MG PO ×2 (00:01→22:30)
[2024-02-26] MEDS: ULORIC 40 MG PO ×2 (00:02→22:30)
[2024-02-26] MEDS: HEPARIN 5000 UNITS SC ×4 (00:04→23:28)
[2024-02-26 00:05] LABS: Glucose - Point of Care 114 mg/dl (70-99)
[2024-02-26] MEDS: LANTUS 0.38 UNITS SC ×2 (00:19→22:43)
[2024-02-26 07:49] LABS: Glucose - Point of Care 94 mg/dl (70-99)
[2024-02-26] MEDS: NOVOLOG FLEXPEN-MODERATE RESISTANCE SC ×3 (08:25→16:56)
[2024-02-26] MEDS: MIRALAX 17 GRAMS PO (08:27)
[2024-02-26] MEDS: LASIX 40 MG PO (08:27)
[2024-02-26] MEDS: SODIUM BICARBONATE 650 MG PO ×2 (08:27→20:43)
[2024-02-26] MEDS: APRESOLINE 25 MG PO ×2 (08:27→20:44)
[2024-02-26] MEDS: ZETIA 10 MG PO (08:27)
[2024-02-26] MEDS: PLAVIX 75 MG PO (08:27)
[2024-02-26] MEDS: ALDACTONE 25 MG PO (08:28)
[2024-02-26] MEDS: PROTONIX 40 MG PO ×2 (08:28→20:43)
[2024-02-26] MEDS: VITAMIN D3 (cholecalciferol) 50 MCG PO (08:28)
--- NOTE | 2024-02-26 10:17 | PTCARENOTE ---
Patient is very confused and forgetful. Patient has set of bed alarm multiple times this shift. Overnight RN stated patient AAOx2/3. Patient is only AAO to herself . made aware.
[2024-02-26 11:13] LABS: % Basophils 0.5 % (0-2); % Eosinophils 0.4 % (0-6); % Immature Granulocytes 0.4 % (0-0.5); % Lymphocytes 12.9 % (20.5-51.1); % Monocytes 9.5 % (1.7-9.3); % Neutrophils 76.3 % (42.2-75.2); Absolute Basophils 0.1 10^3/uL (0-0.2); Absolute Eosinophils 0.1 10^3/uL (0-0.7); Absolute Immature Granulocytes 0.1 10^3/uL (0-0.05); Absolute Lymphocytes 1.6 10^3/uL (1.2-3.4); Absolute Monocytes 1.1 10^3/uL (0.1-0.6); Absolute Neutrophils 9.2 10^3/uL (1.4-6.5); Hematocrit 36.8 % (37.0-47.0); Hemoglobin 11.8 g/dL (12.0-16.0); Mean Corp Hgb Conc. 32.1 g/dL (33.0-37.0); Mean Corpuscular Hgb 27.2 pg (27.0-31.0); Mean Corpuscular Volume 84.8 fL (81.0-99.0); Mean Platelet Volume 12.1 fL (7.4-10.4); Nucleated Red Blood Cells % 0 %; Platelet Count 234 10^3/uL (130-400); Red Blood Cell Count 4.34 10^6/uL (4.20-5.40); White Blood Cell Count 12.1 10^3/uL (4.8-10.8)
[2024-02-26 11:41] LABS: Glucose - Point of Care 77 mg/dl (70-99)
[2024-02-26 11:43] LABS: Blood Urea Nitrogen 44 mg/dl (7-17); Calcium 9.8 mg/dl (8.4-10.2); Carbon Dioxide 27 mmol/L (22-30); Chloride 103 mmol/L (98-107); Estimated Creatinine Clearance 22 ml/min; Glucose 84 mg/dl (70-99); Potassium 4.7 mmol/L (3.5-5.1); Sodium 144 mmol/L (135-145); eGFR 25.73
[2024-02-26] MEDS: ULTRAM 25 MG PO (11:44)
[2024-02-26 16:53] LABS: Glucose - Point of Care 102 mg/dl (70-99)
--- NOTE | 2024-02-26 17:17 | W.PN.VS ---
Today's Communication / Plan
-
.
Assessment/Plan
-
POD3 Right femoral endarterectomy with bovine pericardial patch angioplasty, shockwave lithotripsy and stent right iliac artery
Plan:
Transfer to ICU for closer monitoring
Neuro consult - communicated with Dr. Olsen
MRI brain ordered
Carotid duplex
Gentle IV hydration
Subjective Data
-
Date of Service: February 26, 2024
Patient kept yesterday for confusion
Intermittent
This morning she knows person, place but not time or president
No dysarthria
No facial droop
Symmetric UE/LE strength
I was alerted this PM by PT that she became a bit more confused. Nursing alerted me that she may be having word finding difficulties.
Head CT negative yesterday
Infectious workup unrevealing
Objective Data
-
Vital Signs
Temp Pulse Resp BP Pulse Ox
98.2 F 88 14 134/81 98
02/26/24 15:40 02/26/24 15:40 02/26/24 15:40 02/26/24 15:40 02/26/24 15:40
Intake and Output
02/25/24 02/26/24 02/27/24
06:59 06:59 06:59
Intake Total 1500 / 1500 1320 / 1320
Output Total 150 / 150
Balance 1350 / 1350 1320 / 1320
Intake:
Oral fluids 1180 / 1180 1320 / 1320
IV fluids (Total) 320 / 320
Nss 1,000 ml @ 80 mls/hr IV . 320 / 320
[id number] [facility] Rx#:[id number]
Output:
Urine, Cortez 150 / 150
Other:
Number of approximated SMALL 1
amounts of urine
Number of approximated MODERATE 1 3
amounts of urine
Number of approximated LARGE 2
amounts of urine
Lab Results
02/26/24 10:47
02/26/24 10:47
Calcium 9.8 mg/dl (8.4-10.2) 02/26/24 10:47
Physical Exam
-
NAD
Reg
Alert
Oriented to person, birthdate, place but not current year
Non focal peripheral neuro exam
Right groin clean/dry
--- NOTE | 2024-02-26 17:27 | PTCARENOTE ---
Addendum entered by Pricila Shukla RN 02/27/24 08:31:
Report called to ELECTRIC CRANE OPERATOR at change of shift on 02/26/24 @1915. Bed not clean yet. Will update nightshift RN. Nightshift RN to transfer patient when bed ready.
Addendum entered by Pricila Shukla RN 02/27/24 06:57:
NIH completed at that time. NIH (1). Patient confused on year. VSS. IVF started for permissive hypertension. Aspirin [address] Cortez.
Original Note:
Pt still with confusion and has set of bed alarm multiples. Patient re-directable but having word finding difficulties. made aware. STAT Brain MRI ordered, neuro consulted and patient being transferred to ICU for closer monitoring. VSS. Nursing
millwright supervisor made aware.
[2024-02-26] MEDS: LOW STRENGTH ASPIRIN 81 MG PO (17:54)
[2024-02-26] MEDS: NSS 500 IV (17:54)
[2024-02-26 22:37] LABS: Glucose - Point of Care 101 mg/dl (70-99)
[2024-02-26] MEDS: TRANDATE 10 MG IV (23:26)
--- NOTE | 2024-02-26 23:40 | PTCARENOTE ---
Addendum entered by Lori Mcallister RN 02/26/24 23:56:
RN called for pt ICU transfer update at ~2000 and 2200.
Original Note:
Received handoff report for patient at ~1900 from off going RN. Patient received in room 3366 at 2300. dual RN Stroke/NIH assessment completed. Patient is confused to month and age. NIH 2. Follows simple commands. Patient denies pain. Sinus rhythm
on the monitor. Afebrile. Pt's BP 208/83 and repeat 211/77. TERRI Venegas made aware. RESIDENCE SUPERVISOR at the bedside. Labetalol 10 mg ordered and administered. Clear breath sounds on room air. SpO2 at 96%. MAEx4. +BS. Plan of care for the remainder of the
shift reviewed with the patient. Bed alarm in use. Call duran is within reach.
[2024-02-27] VITALS (30 sets, daily range): BP systolic 111–159; BP diastolic 44–96; PULSE 63; O2SAT 96–98; BMI 26.8
--- NOTE | 2024-02-27 00:59 | PTCARENOTE ---
Pt reassessed. BP 146/67. Remains confused to age and month. Pt's watching television. Safety measures maintained.
[2024-02-27 03:48] LABS: % Basophils 0.7 % (0-2); % Eosinophils 1.5 % (0-6); % Immature Granulocytes 0.3 % (0-0.5); % Lymphocytes 19.2 % (20.5-51.1); % Monocytes 11.4 % (1.7-9.3); % Neutrophils 66.9 % (42.2-75.2); Absolute Basophils 0.1 10^3/uL (0-0.2); Absolute Eosinophils 0.2 10^3/uL (0-0.7); Absolute Lymphocytes 2.1 10^3/uL (1.2-3.4); Absolute Monocytes 1.2 10^3/uL (0.1-0.6); Absolute Neutrophils 7.3 10^3/uL (1.4-6.5); Hemoglobin 10.7 g/dL (12.0-16.0); Mean Corp Hgb Conc. 33.4 g/dL (33.0-37.0); Mean Corpuscular Hgb 28.2 pg (27.0-31.0); Mean Corpuscular Volume 84.2 fL (81.0-99.0); Mean Platelet Volume 12.2 fL (7.4-10.4); Nucleated Red Blood Cells % 0 %; Platelet Count 223 10^3/uL (130-400); Red Cell Dist. Width 14.8 % (11.5-14.5); White Blood Cell Count 10.9 10^3/uL (4.8-10.8)
[2024-02-27 04:32] LABS: TSH 4.91 uIU/ml (0.47-4.68)
[2024-02-27 04:37] LABS: Blood Urea Nitrogen 56 mg/dl (7-17); Calcium 9.2 mg/dl (8.4-10.2); Carbon Dioxide 25 mmol/L (22-30); Chloride 104 mmol/L (98-107); Estimated Creatinine Clearance 19 ml/min; Glucose 51 mg/dl (70-99); Potassium 4.3 mmol/L (3.5-5.1); Sodium 144 mmol/L (135-145); eGFR 21.76
[2024-02-27 04:52] LABS: Glucose - Point of Care 47 mg/dl (70-99)
[2024-02-27 05:07] LABS: Glucose - Point of Care 62 mg/dl (70-99)
[2024-02-27 05:08] LABS: Folate 14.9 ng/ml (2.76-20); Vitamin B12 272 pg/ml (239-931)
[2024-02-27 05:24] LABS: Glucose - Point of Care 63 mg/dl (70-99)
[2024-02-27 05:39] LABS: Glucose - Point of Care 127 mg/dl (70-99)
--- NOTE | 2024-02-27 06:15 | PTCARENOTE ---
[id number]: Lab called with pt's blood glucose of 51. fingerstick blood glucose is 47. Provided patient orange juice. Pt is awake and answering questions. No change in mentation since transfer to the ICU. Pt having conversation with RN. Remains
confused to date and month. TERRI Frazier made aware. rechecked BG in 15 minutes and BG 62. Provided the patient hypoglycemic packet then rechecked BG. Resulted for 63 at 05:09. Provided patient another 4 oz orange juice. TERRI Frazier
made aware. Dextrose ordered if repeat BG below normal range. Pt's repeat BG at 05:25 is 127 post second OJ. Bedside BG protocol placed.
--- NOTE | 2024-02-27 06:40 | PTCARENOTE ---
Pt's 2 hours post hypoglycemic blood glucose is 138.
[2024-02-27] MEDS: NSS 500 IV (06:43)
[2024-02-27 06:49] LABS: Glucose - Point of Care 138 mg/dl (70-99)
--- NOTE | 2024-02-27 07:50 | W.PN.VS ---
Today's Communication / Plan
-
.
Assessment/Plan
-
POD4 Right femoral endarterectomy with bovine pericardial patch angioplasty, shockwave lithotripsy and stent right iliac artery
Plan:
Neuro consult - communicated with Dr. Olsen
MRI brain ordered
Carotid duplex
Continue IV hydration (Cr elevated to 2.3 from baseline of ~2)
Followup on other pending labs
Subjective Data
-
Date of Service: February 27, 2024
Comfortable this AM
No complaints
Oriented to person and place. Does not know year or this AM
No dysarthria
No motor or sensory complaints
Denies CP/SOB/abd pain/leg pain/incision pain
Objective Data
-
Vital Signs
Temp Pulse Resp BP Pulse Ox
97.7 F 65 14 122/46 96
02/27/24 03:50 02/27/24 07:00 02/27/24 07:00 02/27/24 07:00 02/27/24 07:00
Intake and Output
02/26/24 02/27/24 02/28/24
06:59 06:59 06:59
Intake Total 1320 / 1320 1220 / 1220
Output Total 300 / 300
Balance 1320 / 1320 920 / 920
Intake:
Oral fluids 1320 / 1320 620 / 620
IV fluids (Total) 600 / 600
Nss 500 ml @ 75 mls/hr IV . 600 / 600
[id number] [facility] Rx#:[id number]
Output:
Urine, Voided 300 / 300
Other:
Number of approximated MODERATE 3
amounts of urine
Number of approximated LARGE 2 3
amounts of urine
Lab Results
02/27/24 03:23
02/27/24 03:23
Calcium 9.2 mg/dl (8.4-10.2) 02/27/24 03:23
Physical Exam
-
Non toxic
Non labored breathing
Regular
Abd soft, NT
Right groin incision clean/dry/no infection/no drainage
Feet warm bilat
Strength = and symmetric b/l UE's/LE's
[2024-02-27] MEDS: NOVOLOG FLEXPEN-MODERATE RESISTANCE SC ×3 (08:06→17:36)
[2024-02-27] MEDS: HEPARIN 5000 UNITS SC ×3 (08:07→23:23)
[2024-02-27] MEDS: PROTONIX 40 MG PO ×2 (08:09→20:17)
[2024-02-27] MEDS: SODIUM BICARBONATE 650 MG PO ×2 (08:09→20:17)
[2024-02-27] MEDS: ZETIA 10 MG PO (08:09)
[2024-02-27] MEDS: LOW STRENGTH ASPIRIN 81 MG PO (08:09)
[2024-02-27] MEDS: APRESOLINE 25 MG PO ×2 (08:09→20:17)
[2024-02-27] MEDS: PLAVIX 75 MG PO (08:09)
[2024-02-27] MEDS: VITAMIN D3 (cholecalciferol) 50 MCG PO (08:09)
[2024-02-27] MEDS: MIRALAX 17 GRAMS PO (08:10)
[2024-02-27 08:11] LABS: Glucose - Point of Care 113 mg/dl (70-99)
--- NOTE | 2024-02-27 09:00 | PTCARENOTE ---
Rec'd pt at 0800 awake resting in bed. Oriented to person and knew she was in the hospital but was off on her birthdate, age and forgetful as to why she was admitted to the hospital. Needed to remind her that she has surgery on her R leg and then
she said 'oh thats right'. NIH is a 2. Overall just seems slow to process questions before she gives an answer or perform a task. Was able to recognize objects on NIH scale and speech is clear. But when asked what she wanted for breakfast- with the
menu in hand said ' Roast turkey and gravy' Needed to be reminded to look at the breakfast options. Needs direction in general but then will follow commands. Affect overall is flat. Denies dizziness or headache. TIANA at 3mm.Only c/o discomfort was
when her R groin incision was palpated. Skin is pale pink wm and dry. R groin incision is approximated with surgical adhesive present. No swelling or drainage. R thigh with Tr edema. Respirs are unlabored on RA with sats of 98-99%. BS are clear.
Monitor SR. + pulses. PT and DP pulses with the doppler. Weakest is the L PT pulse but still present with the doppler. Extremities are warm. Abd is soft with + BS. Denies nausea. Overall poor limited appetite. Denies need to void currently. Repeat
BS at 0800 113. IV NSS infusing at 75 ml/hr via L forearm IV site. Capped int intact R ac. Pt turned and repositioned. Call duran in reach. Currently ready for MRI- will transport via bed.
[2024-02-27] MEDS: ALDACTONE PO (10:13)
[2024-02-27] MEDS: LASIX 40 MG PO (10:24)
--- NOTE | 2024-02-27 10:30 | PTCARENOTE ---
Returned from MRI. No changes in assessment. Pt needed to void. Assisted with assist of 1 oob to the bsc then to the chair. Is able to bear wt but gait is definately weak. Denies any numbness and only admits to tenderness if R groin is palpated. Did
admit with standing to some burning in her R upper thigh. Incision site unchanged. Still slowly working on breakfast. Affect is unchanged. Speech is slow but overall appropriate and was able to tell me her correct birthdate and the month. Just seems
slow to process at times before she gives answers to questions or performs a task. Voided yellow urine in the commode. AM Lasix given now that she is back from MRI. Aldactone held per md order. at the bedside and updated. Call duran in reach.
--- NOTE | 2024-02-27 10:54 | W.PN.INTV ---
Today's Communication / Plan
Recommendations
Continue supportive care
Avoid sedatives
Encourage oral hydration
MRI later today
Hold tramadol or morphine
Glycemic control
Assessment
-
74-year-old woman that initially was admitted to the hospital for right femoral endarterectomy. Underwent on 02/23/2024 without complications. Sent to the floor for further care. Returns back to the ICU 02/27/2024 with confusion.
Toxic metabolic encephalopathy
Acute on chronic renal insufficiency
-Status post right femoral endarterectomy with bovine pericardial patch angioplasty, shockwave lithotripsy and stent right iliac artery-Dr. Stahl 02/23/2024
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
CAD, s/p stents
Chronic bronchitis
COVID pneumonia: adm DH 12-17 to 30 '20 (adm post syncope), received dexamethasone/remdesivir, weaned off O2 PTD
Developed mild COVID-associated ILD changes
HTN
CKD
DM
GERD
Tonsillectomy
Non-smoker
ACEi-related angioedema
Henoch-Schonlein purpura
Gastric bypass 2010
ALISHA, mild, with nocturnal hypoxemia
PAD, SFA stent Apr 2020
Sulfa allergy: rash, vasculitis
-
Plan recommendation:
Postoperative day 4
-
Returns to the ICU with toxic metabolic encephalopathy 02/27/2024
This morning 02/27/2024: Patient calm, cooperative. Alert. at the bedside. states that she is improved this morning. No motor deficit.
Oriented during my examination.
-
Unclear etiology-patient with hypoactive delirium-possibly hospital delirium/medication related tramadol/morphine etc/sleep deprivation.
Chest x-ray: Reviewed no acute abnormalities.
Urinalysis: Unremarkable.
CT head 02/25/2024: Reviewed
1. No CT evidence for acute intracranial hemorrhage or transcortical infarct.
2. 4 mm chronic lacunar infarct in the posterior limb of the right internal capsule.
3. Moderate distention of the ventricular system which appears unchanged (either ex vacuo dilatation or normal pressure communicating hydrocephalus).
4. Moderate cerebellar volume loss.
MRI result: Pending. Continue with frequent neurological checks, so far no motor deficit.
No evidence for infection at this point (afebrile, no motor deficit, electrolytes are balanced)
Will hold any narcotics and even tramadol for pain at this point.
Avoid sedatives
Neurology has been consulted
Acute on chronic CKD-hold the spironolactone for today. Monitor electrolytes.
Okay to continue with oral Lasix-hold diuretics for tomorrow.
Encourage oral hydration.
Complete current bag of IV fluids 75 cc an hour and then stop
Labs tomorrow morning
Continue neuro and vascular checks aspiration precautions
Fall precautions
Vascular surgery following-correspondence and operative notes reviewed
Diabetes control-insulin subcu.
Target 100 4180
Anemia: Stable.
Follow hemoglobin-no evidence for bleeding from
Right groin is without hematoma. Mildly tender.
DVT prophylaxis heparin subcu
Diet as tolerated
-
Subjective Dataa
Subjective Data
Date of Service:
Date of Service: February 27, 2024
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
Subjective:
Back in the ICU due to confusion since yesterday.
Review of Systems
Cardiopulmonary: Dyspnea (n)
GI: Abdominal Pain (n), Nausea (n) and Vomiting (n)
Neuro: Headache (n)
Objective Data
Data Reviewed
Vital Signs / I&O / Oxygen:
Vital Signs
Temp Pulse Resp BP Pulse Ox
97.8 F 69 14 111/69 98
02/27/24 08:00 02/27/24 10:24 02/27/24 09:00 02/27/24 10:24 02/27/24 09:00
Intake and Output
02/26/24 02/27/24 02/28/24
06:59 06:59 06:59
Intake Total 1320 / 1320 1220 / 1295 275 / 275
Output Total 300 / 300
Balance 1320 / 1320 920 / 995 275 / 275
SaO2 98
Nasal Cannula flow liters per 2
minute
Physical Exam
General: Comfortable
HEENT: Normocephalic
Cardiovascular: S1-S2
Respiratory: Clear and Non-Labored Respirations
GI: Soft and Non Distended
Neurology: Awake, Alert and No Motor Deficits
Skin: Warm
Labs/Micro/Reports
Lab Data
02/27/24 03:23
02/27/24 03:23
--- NOTE | 2024-02-27 11:48 | PTCARENOTE ---
Voided on the commode post lasix and had a small amt of formed vivar stool. Resting oob in the chair. No changes. Plan of care reviewed with pt and
[2024-02-27 12:48] LABS: Glucose - Point of Care 139 mg/dl (70-99)
--- NOTE | 2024-02-27 13:00 | PTCARENOTE ---
Remains resting. Awaiting lunch. No changes in assessment. Pulses unchanged. Neuro- still slow to answer questions at times and forgetful with some questions - asked what her 2 dogs names were and she could not remember the name of the second one
but could tell me he was duck tolling retriever. Has been correct with her birthdate and appropriate overall with conversation. Call duran remains in reach.
[2024-02-27] MEDS: NSS IV ×2 (13:01→14:00)
--- NOTE | 2024-02-27 13:30 | PTCARENOTE ---
Appetite overall poor for lunch. No c/o nausea states she is just not hungry. Admits to being tired. Assisted back to bed. No other changes. Call duran in reach.
--- NOTE | 2024-02-27 16:00 | PTCARENOTE ---
Pt assisted back oob and worked with PT and OT at 1530 . Currently resting oob in the chair. Neurology in to see pt earlier. Assessment is overall unchanged. Memory - overall has done better throughout the day if the subject/questions are something
she has been asked multiple times today, although still waxes and wanes with certain answers. 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 No difficulty
identifying the [facility] pictures and sentences. Speech is clear. Does continue to need some cueing and direction with certain tasks. Pulses are unchanged. Groin site unchanged. VS as documented. Voiding yellow urine on the commode. Call duran in reach.
[2024-02-27] MEDS: TYLENOL 650 MG PO (17:37)
--- NOTE | 2024-02-27 17:40 | PTCARENOTE ---
Assissted back to bed. Medicated with Tylenol 650 mg po for 4/10 R groin tenderness and R thigh intermittent burning discomfort. Sites unchanged. Dinner ordered.
[2024-02-27 17:46] LABS: Glucose - Point of Care 121 mg/dl (70-99)
--- NOTE | 2024-02-27 19:50 | PTCARENOTE ---
Handoff report received from off going RN. Patient is oriented to person, place, and time...however forgetful when asked her age. The pt waxes and wanes. Plan of care for the shift reviewed with the patient. When asked about half an hour later, the
patient recalls her age and date. Complains of mild groin pain. Pupils are 3 and reactive. weak relocation associate. Pt's sinus alfredito/sinus rhythm on the monitor with HR fluctuating between 54-61 bpm. Doppler pulse present to bilateral DPs. Left PT doppler
pulse is very weak. Clear breath sound. SpO2 at 96% on room air. +BS. the patient ate 25% of her dinner tray. Encouraged patient to eat a bit more to regain her strength, but the patient declines. Pt encouraged to utilize call duran for assistance.
Bed in the lowest position.
[2024-02-27 22:23] LABS: Glucose - Point of Care 147 mg/dl (70-99)
[2024-02-27] MEDS: ULORIC 40 MG PO (22:36)
[2024-02-27] MEDS: LIPITOR 40 MG PO (22:36)
[2024-02-27] MEDS: LANTUS 0.19 UNITS SC (22:37)
[2024-02-27] MEDS: LANTUS SC (22:38)
[2024-02-28] VITALS (22 sets, daily range): BP systolic 73–197; BP diastolic 40–158; PULSE 89; O2SAT 97; BMI 27.3
--- NOTE | 2024-02-28 00:27 | PTCARENOTE ---
Patient reassessed. Remains AAOx3 with intermittent forgetfulness. Sinus alfredito on the monitor with HR 56. Assisted patient OOb to bedside commode. Pt voided. Pt cleansed with CHG wipes. Linens changed. No other changes from the previous assessment.
Call duran is within reach. Safety measures maintained.
[2024-02-28] MEDS: APRESOLINE 10 MG IV (01:19)
[2024-02-28] MEDS: TYLENOL 650 MG PO ×2 (03:02→20:14)
[2024-02-28 03:21] LABS: Glucose - Point of Care 96 mg/dl (70-99)
[2024-02-28 03:51] LABS: Hematocrit 31.8 % (37.0-47.0); Hemoglobin 10.5 g/dL (12.0-16.0); Mean Corpuscular Hgb 27.8 pg (27.0-31.0); Mean Corpuscular Volume 84.1 fL (81.0-99.0); Mean Platelet Volume 12.3 fL (7.4-10.4); Platelet Count 243 10^3/uL (130-400); Red Blood Cell Count 3.78 10^6/uL (4.20-5.40); Red Cell Dist. Width 14.8 % (11.5-14.5); White Blood Cell Count 9.9 10^3/uL (4.8-10.8)
[2024-02-28 04:13] LABS: Blood Urea Nitrogen 53 mg/dl (7-17); Calcium 9.3 mg/dl (8.4-10.2); Carbon Dioxide 26 mmol/L (22-30); Chloride 103 mmol/L (98-107); Estimated Creatinine Clearance 19 ml/min; Glucose 90 mg/dl (70-99); Potassium 4.1 mmol/L (3.5-5.1); Sodium 142 mmol/L (135-145); eGFR 22.95
--- NOTE | 2024-02-28 04:19 | PTCARENOTE ---
Patient reassessed. AAOx3. Assisted to bedside commode. The patient c/ o pain to right knee. PRN Tylenol administered. pt brushed her teeth. Labs drawn and sent. No changes from the previous assessment.
[2024-02-28] MEDS: NOVOLOG FLEXPEN-MODERATE RESISTANCE SC (07:41)
[2024-02-28] MEDS: MIRALAX PO (07:42)
[2024-02-28] MEDS: PROTONIX 40 MG PO ×2 (07:42→20:10)
[2024-02-28] MEDS: APRESOLINE 25 MG PO ×2 (07:42→20:11)
[2024-02-28] MEDS: LASIX 40 MG PO (07:42)
[2024-02-28] MEDS: VITAMIN D3 (cholecalciferol) 50 MCG PO (07:42)
[2024-02-28] MEDS: LOW STRENGTH ASPIRIN 81 MG PO (07:43)
[2024-02-28] MEDS: ZETIA 10 MG PO (07:43)
[2024-02-28] MEDS: SODIUM BICARBONATE 650 MG PO ×2 (07:43→20:11)
[2024-02-28] MEDS: PLAVIX 75 MG PO (07:43)
[2024-02-28] MEDS: HEPARIN 5000 UNITS SC ×3 (07:44→23:29)
--- NOTE | 2024-02-28 07:45 | W.PN.INTV ---
Today's Communication / Plan
Recommendations
Hold standing insulin, follow blood sugars
Sliding scale for now
Carotid ultrasound pending
Follow creatinine
PT/rehabilitation as indicated
Okay for transfer out of ICU. Will sign off. Please call with questions
Assessment
-
74-year-old woman that initially was admitted to the hospital for right femoral endarterectomy. Underwent on 02/23/2024 without complications. Sent to the floor for further care. Returns back to the ICU 02/27/2024 with confusion.
Toxic metabolic encephalopathy
Acute on chronic renal insufficiency
-Status post right femoral endarterectomy with bovine pericardial patch angioplasty, shockwave lithotripsy and stent right iliac artery-Dr. Stahl 02/23/2024
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
CAD, s/p stents
Chronic bronchitis
COVID pneumonia: adm DH 12-17 to 30 '20 (adm post syncope), received dexamethasone/remdesivir, weaned off O2 PTD
Developed mild COVID-associated ILD changes
HTN
CKD
DM
GERD
Tonsillectomy
Non-smoker
ACEi-related angioedema
Henoch-Schonlein purpura
Gastric bypass 2010
ALISHA, mild, with nocturnal hypoxemia
PAD, SFA stent Apr 2020
Sulfa allergy: rash, vasculitis
-
Plan recommendation:
At this time, patient appears to be comfortable
She is without complaints
Vital stable, urine output adequate. Creatinine increased to 2.2, baseline appears to be 1.9
Physical therapy correspondence reviewed
Confusion seems to be improved
Episodic hypoglycemia noted overnight
Moving forward
Continue with management per vascular surgery
Brain MRI unremarkable without acute findings
Carotid ultrasound pending
Remains on aspirin/Plavix
Hypoglycemia noted
Oral intake not optimal
Hold insulin therapy today, continue sliding scale
Received half dose, 19 units yesterday p.m.
Consider cutting into half later p.m. depending on how she is does throughout the day
Per my review, patient was not confused but intermittent confusion noted
Wonder if this may be related to hypoglycemia
Neurology has been consulted
Minimize narcotic therapy as able
No evidence of low-grade infection
CT head 02/25/2024: Reviewed
1. No CT evidence for acute intracranial hemorrhage or transcortical infarct.
2. 4 mm chronic lacunar infarct in the posterior limb of the right internal capsule.
3. Moderate distention of the ventricular system which appears unchanged (either ex vacuo dilatation or normal pressure communicating hydrocephalus).
4. Moderate cerebellar volume loss.
MRI result: Negative for acute findings.
Neurology has been consulted
Acute on chronic CKD-hold the spironolactone for today. Monitor electrolytes.
Okay to continue with oral Lasix-hold diuretics for tomorrow.
Encourage oral hydration.
Complete current bag of IV fluids 75 cc an hour and then stop
Continue to follow
DVT prophylaxis heparin subcu
Diet as tolerated
For transfer out of ICU. We will sign off. Please call with questions
Subjective Dataa
Subjective Data
Date of Service:
Date of Service: February 28, 2024
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
Subjective:
Patient is without complaints. She denies shortness of breath, chest pain, abdominal pain. Right groin pain is minimal. She is alert and oriented, aware of transfer and reason for transfer to ICU.
Objective Data
Data Reviewed
Vital Signs / I&O / Oxygen:
Vital Signs
Temp Pulse Resp BP Pulse Ox
98.2 F 68 14 158/123 97
02/28/24 07:27 02/28/24 06:00 02/28/24 06:00 02/28/24 06:00 02/28/24 06:00
Intake and Output
02/27/24 02/28/24 02/29/24
06:59 06:59 06:59
Intake Total 1220 / 1295 1964 / 1964
Output Total 300 / 300 950 / 950
Balance 920 / 995 1015 / 1015
SaO2 97
Nasal Cannula flow liters per 2
minute
Physical Exam
General: Comfortable
HEENT: Normocephalic and Anicteric
Cardiovascular: S1-S2, Regular Rhythm, Murmur (n) and Rub (n)
Respiratory: Clear, Wheeze (n), Crackles (n), Rhonchi (n) and Non-Labored Respirations
GI: Soft and Non Distended
Neurology: Awake, Alert and No Motor Deficits
Skin: Warm and Other (Right groin incision intact, distal pulses intact,)
Labs/Micro/Reports
Lab Data
02/28/24 03:26
02/28/24 03:26
[2024-02-28 07:49] LABS: Glucose - Point of Care 64 mg/dl (70-99)
[2024-02-28 08:08] LABS: Glucose - Point of Care 79 mg/dl (70-99)
--- NOTE | 2024-02-28 09:20 | W.PN.VS ---
Today's Communication / Plan
-
See below.
Assessment/Plan
-
POD5 Right femoral endarterectomy with bovine pericardial patch angioplasty, shockwave lithotripsy and stent right iliac artery
Plan:
Carotid duplex pending
Neurology consult pending
MRI brain with no acute findings
Physiatry consult placed as physical therapy is recommending acute rehab
Can be downgraded to telemetry/medical surgical floor
Continue dual antiplatelet therapy
Continue PT
Subjective Data
-
Date of Service: February 28, 2024
Patient seen and examined at bedside, offers no complaints. Reports that she believes confusion has resolved. Does endorse intermittent right groin pain that is well-managed with postoperative pain medications. Tolerating p.o. diet. Denies
nausea, vomiting, fever, and chills. Patient is awake alert and oriented x 3 but did require reorientation to surgical procedure that caused her admission.
Objective Data
-
Vital Signs
Temp Pulse Resp BP Pulse Ox
98.2 F 68 14 158/123 97
02/28/24 07:27 02/28/24 06:00 02/28/24 06:00 02/28/24 06:00 02/28/24 06:00
Intake and Output
02/27/24 02/28/24 02/29/24
06:59 06:59 06:59
Intake Total 1220 / 1295 1965 / 1965
Output Total 300 / 300 950 / 950
Balance 920 / 995 1015 / 1015
Intake:
Oral fluids 620 / 620 840 / 840
IV fluids (Total) 600 / 675 1125 / 1125
Nss 500 ml @ 75 mls/hr IV . 600 / 675 1125 / 1125
Q6H40M [facility] Rx#:[id number]
Output:
Urine, Voided 300 / 300 950 / 950
Other:
Number of approximated SMALL 1
amounts of urine
Number of approximated LARGE 3
amounts of urine
Lab Results
02/28/24 03:26
02/28/24 03:26
Calcium 9.3 mg/dl (8.4-10.2) 02/28/24 03:26
Physical Exam
-
Non toxic, no apparent stress resting bed comfortably, awake alert oriented x 3
Non labored breathing
Abd soft, NT
Right groin incision clean/dry/no infection/no drainage
Feet warm bilat, right foot DP +2 palpable
Strength = and symmetric b/l UE's/LE's
--- NOTE | 2024-02-28 10:01 | CON.NEURO4 ---
Consultation - Neurology 4
-
CONSULTING PHYSICIAN: Peña Bahena MD
REFERRING PHYSICIAN: Hospitalist/vascular surgery
DICTATED BY: Peña Bahena MD
DATE/TIME OF REQUEST: 02/27/2024
DATE/TIME OF CONSULTATION: 02/28/2024 1030
Reason for Consultation: Altered mental status
History of Present Illness:
This is a 74 year old right handed female) who has presented to the hospital with (chief complaint) of of right leg pain secondary to aortic stenosis (<50%) right common iliac stenosis, right femoral artery stenosis with stenosis of the origin of
the right profunda femoris who has been having claudication on walking and intermittent rest pain. She underwent a staged arterial procedure which included a right-sided femoral endarterectomy with bovine pericardial patch angioplasty and shockwave
lithotripsy, retrograde iliac angio plasty with stenting on February 23. Postoperatively she was confused and disoriented and lethargic.
Postoperative confusion persisted from February 24 to February 26. This morning she is more awake and alert. She is oriented to person place and situation. She has no difficulty with registration and recall
Past Medical History: Hypertension enoxolone Matthew purpura diabetes mellitus glaucoma hyperlipidemia diabetes chronic kidney disease stage III-IV, coronary artery disease gastric ulcer disease mesenteric vascular insufficiency with dissection COVID
Surgical History: Gastric bypass get cardiac catheterization cardiac stenting
Family History: Father history with history of hypertension coronary disease mother history of hypertension diabetes
Social History: lives at home with his does not smoke or use alcohol
Allergies:MARCELL inhibitor sulfa Zocor Norvasc Lotensin terazosin
Home Medications: Addendum
Review of Symptoms:
Patient denies any fever, headache, chest pain, shortness of breath, GI or symptoms.
�Per the HPI.�All systems are reviewed negative except above.
�-
Vital Signs:
The patient has a Temp 36.8 C Pulse 68 Resp 14 BP158/123 Pulse Ox 97
Physical Exam:
The patient is afebrile, heart sounds S1 and S2 are (regular / irregular), and chest is clear to auscultation bilaterally.
- If not clear, describe.
Neurologic Examination:
The patient is awake, alert and oriented x 3. He is able to follow commands and answer questions appropriately. There is no aphasia or dysarthria. On cranial nerve assessment, pupils are 3 mm bilateral, round and reactive to light and
accommodation. Visual jackson are full. Extraocular movements are intact. Facial sensations are intact and bilaterally symmetrical, there is no facial asymmetry. Hearing is intact bilaterally to normal conversation volume. Tongue palate and uvula
are midline. Sternocleidomastoid strengths are full bilaterally.
Motor strengths are 5/5 bilateral upper and lower extremities on medical research [place] scale. There is no drift or involuntary movement noted. Deep tendon reflexes are 2+ bilateral upper and lower extremities and Babinski is absent bilaterally.
Sensations of pain, touch, temperature and vibration are intact and bilaterally symmetrical. There was no extinction noted on double simultaneous stimulation. Coordination is intact by finger to nose bilaterally.
Romberg's and gait was not tested as patient is bedbound
Lab Results: Addendum
Neuro Imaging: CT head reveals dilated ventricles out of proportion to patient's age and atrophy consistent with normal pressure hydrocephalus
MRI head reveals dilated ventricle and cervical spine stenosis with cord impression
Impression:
(Mrs.) GOPAL TO is a 74 year old F who has presented to the hospital with (symptoms/chief complaint) postoperative confusion disorientation that is resolved with CT finding of dilated ventricles
Differentials for the patient's presentation include:
1. Post anesthesia delirium
2. Normal pressure hydrocephalus
Recommendations:
1. B12 level
2. Thyroid function
3. PT/OT
4. Maintain MAP of 100
5. Blood sugar control
6. Low-dose statin
7. Aspirin/Plavix
8. Minimize narcotics
Discussed patient care with: Vascular surgery, Rehab
Allergies
-
Allergies
Allergy/AdvReac Type Severity Reaction Status Date / Time
MARCELL Inhibitors Allergy Swelling/AN Verified 02/17/24 09:24
[Marcell Inhibitors] GIOEDEMA
chamomile flower Allergy Rash Verified 02/17/24 09:24
Sulfa (Sulfonamide Allergy Rash Verified 02/17/24 09:24
Antibiotics)
sulfite Allergy VASCULITIS Verified 02/17/24 09:24
Vital Signs and Labs
-
Vital Signs and Labs:
Vital Signs
Temp Pulse Resp BP Pulse Ox
36.8 C 68 14 158/123 97
02/28/24 07:27 02/28/24 06:00 02/28/24 06:00 02/28/24 06:00 02/28/24 06:00
Lab Results
02/28/24 03:26
02/28/24 03:26
PT 15.2 Sec (11.4-14.6) H 02/24/24 05:01
INR 1.19 02/24/24 05:01
APTT 30.6 Sec (23.4-35.0) 02/24/24 05:01
Sodium 142 mmol/L (135-145) 02/28/24 03:26
Potassium 4.1 mmol/L (3.5-5.1) 02/28/24 03:26
BUN 53 mg/dl (7-17) H 02/28/24 03:26
Glucose 90 mg/dl (70-99) 02/28/24 03:26
Calcium 9.3 mg/dl (8.4-10.2) 02/28/24 03:26
Vitamin B12 272 pg/ml (239-931) 02/27/24 03:23
Medications
-
Active Medications
Generic Name Dose Route Start Last Admin
Trade Name Freq PRN Reason Stop Dose Admin
Acetaminophen 650 mg 02/23/24 14:57 02/28/24 03:02
Acetaminophen 325 Mg Tablet PO 03/22/24 14:56 650 mg
Q4HPRN PRN Administration
mild pain or temp >/= 100.4F
Aspirin 81 mg 09/01/24 18:00 02/28/24 07:43
Aspirin 81 Mg Chewable Tablet PO 03/25/24 17:59 81 mg
DAILY BERNADINE Administration
Atorvastatin Calcium 40 mg 02/23/24 22:00 02/27/24 22:36
Atorvastatin (Lipitor) 40 Mg Tablet PO 03/22/24 21:59 40 mg
HS BERNADINE Administration
Bisacodyl 10 mg 02/23/24 14:51
Bisacodyl 10 Mg Rectal Suppository RECTAL 03/22/24 14:50
DAILYPRN PRN
constipation
Cholecalciferol 50 mcg 02/24/24 08:00 02/28/24 07:42
Cholecalciferol (Vitamin D3) 50 Mcg Tablet (2,000 Units) PO 03/23/24 07:59 50 mcg
DAILY BERNADINE Administration
Clopidogrel Bisulfate 75 mg 02/24/24 08:00 02/28/24 07:43
Clopidogrel 75 Mg Tablet PO 03/23/24 07:59 75 mg
DAILY BERNADINE Administration
Dextrose 12.5 grams 02/23/24 15:07
Dextrose 50% (0.5 Grams/Ml) 50 Ml Syringe IV 03/22/24 15:06
[id number] PRN
hypoglycemia
Protocol
Ezetimibe 10 mg 02/24/24 08:00 02/28/24 07:43
Ezetimibe (Zetia) 10 Mg Tablet PO 03/23/24 07:59 10 mg
DAILY BERNADINE Administration
Febuxostat 40 mg 02/23/24 22:00 02/27/24 22:36
Febuxostat (Non-Form) 40 Mg Tablet PO 03/22/24 21:59 40 mg
HS BERNADINE Administration
Furosemide 40 mg 02/24/24 11:00 02/28/24 07:42
Furosemide 40 Mg Tablet PO 03/23/24 10:59 40 mg
DAILY BERNADINE Administration
Glucagon 1 mg 02/23/24 15:07
Glucagon 1 Mg Vial IM 03/22/24 15:06
PRN PRN
hypoglycemia
Protocol
Heparin Sodium 5,000 units 02/23/24 23:50 02/28/24 07:44
Heparin 5,000 Units/Ml 1 Ml Vial SC 03/22/24 23:49 5,000 units
Q8 BERNADINE Administration
Hydralazine HCl 25 mg 02/23/24 20:00 02/28/24 07:42
Hydralazine 25 Mg Tablet PO 03/22/24 19:59 25 mg
BID BERNADINE Administration
Insulin Glargine 38 units/ 0.38 mls @ 0 mls/hr 02/23/24 22:00 02/27/24 22:38
Device SC 03/22/24 21:59 Not Given
HS BERNADINE
As Directed
Insulin Aspart 0 units 02/23/24 16:30 02/28/24 07:41
Insulin Aspart Moderate Resistance 300 Units/3 Ml Pen.Injctr SC 03/22/24 16:29 Not Given
AC BERNADINE
Protocol
Morphine Sulfate 2 mg 02/24/24 14:29 02/25/24 16:48
Morphine 2 Mg/Ml Syringe IV 03/09/24 14:28 2 mg
Q4HPRN PRN Administration
severe pain
Pantoprazole Sodium 40 mg 02/23/24 20:00 02/28/24 07:42
Pantoprazole 40 Mg Delayed Release Tablet PO 03/22/24 19:59 40 mg
BID BERNADINE Administration
Polyethylene Glycol 17 grams 02/24/24 14:00 02/28/24 07:42
Polyethylene Glycol Powder 17 Grams Packet PO 03/23/24 13:59 Not Given
DAILY BERNADINE
Sodium Bicarbonate 650 mg 02/23/24 20:00 02/28/24 07:43
Sodium Bicarbonate 650 Mg Tablet PO 03/22/24 19:59 650 mg
BID BERNADINE Administration
Sodium Chloride 0 flush 02/23/24 15:00
Sodium Chloride 0.9% (Flush) Syringe IV 03/22/24 14:59
PER PROTOCOL BERNADINE
Spironolactone 25 mg 02/24/24 08:00 02/27/24 10:13
Spironolactone 25 Mg Tablet PO 03/23/24 07:59 Not Given
DAILY BERNADINE
Tramadol HCl 25 mg 02/24/24 10:17 02/26/24 11:44
Tramadol Hcl 50 Mg Tablet PO 03/23/24 10:16 25 mg
Q6HPRN PRN Administration
MODERATE PAIN
Home Medications
�Medication �Instructions �Recorded
clopidogrel 75 mg tablet 75 mg PO DAILY Blood clot 05/17/19
prevention/tx
ezetimibe 10 mg tablet 10 mg PO DAILY High cholesterol 05/17/19
insulin aspart U-100 100 unit/mL 2 - 8 units SC .SLIDING SCALE 05/08/20
(3 mL) subcutaneous pen (Novolog MEALS Diabetes
FlexPen U-100 Insulin aspart)
sodium bicarbonate 650 mg tablet 650 mg PO BID Electrolyte Repletion 05/08/20
pregabalin 150 mg capsule (Lyrica) 300 mg PO HS Pain 07/11/20
insulin glargine 100 unit/mL (3 38 unit SC HS Diabetes 07/10/21
mL) subcutaneous pen (Basaglar
KwikPen U-100 Insulin)
atorvastatin 40 mg tablet 40 mg PO HS High Cholesterol 02/03/24
cholecalciferol (vitamin D3) 50 50 mcg PO DAILY Supplement 02/03/24
mcg (2,000 unit) capsule (Vitamin
D3)
coenzyme Q10 400 mg capsule (Co 400 mg PO HS Supplement 02/03/24
Q-10)
febuxostat 40 mg tablet 40 mg PO HS Gout 02/03/24
furosemide 40 mg tablet (Lasix) 40 mg PO DAILY Fluid 02/03/24
Retention/Swelling
spironolactone 25 mg tablet 25 mg PO DAILY Fluid 02/03/24
Retention/Swelling
hydralazine 25 mg tablet 25 mg PO BID Blood Pressure 02/17/24
tramadol 25 mg tablet 25 mg PO Q6H PRN pain 02/23/24
tramadol 50 mg tablet 25 mg (1/2 x 50 mg) PO Q6HPRN PRN 02/24/24
MODERATE PAIN #10 tabs
[2024-02-28 10:18] LABS: Glucose - Point of Care 300 mg/dl (70-99)
[2024-02-28] MEDS: ALDACTONE 25 MG PO (10:24)
--- NOTE | 2024-02-28 11:07 | PTCARENOTE ---
Assumed care of pt. VSS. Oriented X4, NIHSS 0. Able to order breakfast without assistance. Ambulated with walker with PT-see note. Low BP reported by PT after ambulation with recovery. Using BSC with 1 person assist. at bedside. Right groin
incision approximated with dermabond. No significant swelling present. Palpable pulses.
--- NOTE | 2024-02-28 11:55 | CON.MD ---
Documented by User: Wen Rollins MD, Resident 02/28/24 17:09
Consultation - Medical
-
Referring Provider: Neal Cortez III, MD
Chief Complaint: Altered mental status
History of Present Illness: The patient is a 74 year old right handed female who presented to the hospital with (chief complaint) of of right leg pain secondary to aortic stenosis (<50%) right common iliac stenosis, right femoral artery stenosis
with stenosis of the origin of the right profunda femoris who has been having claudication on walking and intermittent rest pain. She underwent a staged arterial procedure which included a right-sided femoral endarterectomy with bovine pericardial
patch angioplasty and shockwave lithotripsy, retrograde iliac angio plasty with stenting on 02/24/24. Postoperatively she was found confused, disoriented and lethargic. Postoperative confusion was noted which was persisted from February 24 to
February 26. The imaging studies did not show any acute abnormalities. Today the patient was seen in her bed in the morning. She was oriented, awake and alert. No difficulty was observed with her talking, naming and communicating.
Past Medical History: HT, DM, glaucoma, HL, CKD stage III-IV, CAD, GUD, mesenteric vascular insufficiency with dissection
Procedure History: Gastric bypass, get cardiac catheterization, cardiac stenting
Family History: Father: HT, CAD Mother:HT, DM
Social History: lives at home with his
Functional Level Premorbidly: Independent with all activities
Functional Level Currently:Bed mobility-supervision / Sit to stand- Supervision/Stand to sit- Supervision/Ambulation Patient ambulated 80' x2 with RW and close supervision
Tobacco: Denies
Alcohol: Occasionally
Drug use: Denies
Lives with:
24-hour assistance available: Yes
Number of floors: Multi-level
# steps to enter: 4
Potential First floor set up:available
Driving: yes
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
Review of the systems
Eye: (x) Normal _
Ear/Nose/Throat: (x) Normal _
Respiratory: (x) Normal _
Cardiovascular: (x) Normal _
Gastrointestinal: (x) Normal _
Genitourinary: (x) Normal _
Musculoskeletal:Stitches on the right medial thigh area which is compliant with her recent surgery (femoral endarterectomy). No drainage, warmness or redness around it. The area is some sensitive to touch. There is some bruising on the thigh area
probably related surgery.
Integumentary: (x) Normal _
Neurologic: (x) Oriented X3, short memory intact.
Psychiatric: (x) Normal _
Endocrine: (x) Normal _
Hematologic/Lymphatic: (x) Normal _
Allergic/Immunologic: (x) Normal _
Allergies
Allergy/AdvReac Type Severity Reaction Status Date / Time
MARCELL Inhibitors Allergy Swelling/AN Verified 02/17/24 09:24
[Marcell Inhibitors] GIOEDEMA
chamomile flower Allergy Rash Verified 02/17/24 09:24
Sulfa (Sulfonamide Allergy Rash Verified 02/17/24 09:24
Antibiotics)
sulfite Allergy VASCULITIS Verified 02/17/24 09:24
Home Medications
clopidogrel 75 mg tablet 75 mg PO DAILY Blood clot prevention/tx 05/17/19
ezetimibe 10 mg tablet 10 mg PO DAILY High cholesterol 05/17/19
insulin aspart U-100 100 unit/mL (3 mL) subcutaneous pen (Novolog FlexPen U-100 Insulin aspart) 2 - 8 units SC .SLIDING SCALE MEALS Diabetes 05/08/20
sodium bicarbonate 650 mg tablet 650 mg PO BID Electrolyte Repletion 05/08/20
pregabalin 150 mg capsule (Lyrica) 300 mg PO HS Pain 07/11/20
insulin glargine 100 unit/mL (3 mL) subcutaneous pen (Basaglar KwikPen U-100 Insulin) 38 unit SC HS Diabetes 07/10/21
atorvastatin 40 mg tablet 40 mg PO HS High Cholesterol 02/03/24
cholecalciferol (vitamin D3) 50 mcg (2,000 unit) capsule (Vitamin D3) 50 mcg PO DAILY Supplement 02/03/24
coenzyme Q10 400 mg capsule (Co Q-10) 400 mg PO HS Supplement 02/03/24
febuxostat 40 mg tablet 40 mg PO HS Gout 02/03/24
furosemide 40 mg tablet (Lasix) 40 mg PO DAILY Fluid Retention/Swelling 02/03/24
spironolactone 25 mg tablet 25 mg PO DAILY Fluid Retention/Swelling 02/03/24
hydralazine 25 mg tablet 25 mg PO BID Blood Pressure 02/17/24
tramadol 25 mg tablet 25 mg PO Q6H PRN pain 02/23/24
tramadol 50 mg tablet 25 mg (1/2 x 50 mg) PO Q6HPRN PRN MODERATE PAIN #10 tabs 02/24/24
Vitals:
Vital Signs
Temp Pulse Resp BP Pulse Ox
97.7 F 90 18 158/78 98
02/28/24 15:47 02/28/24 15:57 02/28/24 15:47 02/28/24 15:57 02/28/24 15:47
Physical Exam:
General Appearance/Observation: Well-developed, well-nourished individual in no apparent distress.
Pain/Comfort Assessment: endorses
Location: On the right side thigh area
Mood/Affect: Appropriate
Integumentary/Operative Site:
Pressure Ulcer Evaluation: absent over heels.
Eyes: Conjunctiva/Lids: normal Pupils: pupils equal round and reactive to light and Accommodation
Ears/Nose/Throat: oral mucosa moist, throat clear. Lips/Teeth/Gums: normal
Neck: No muscle spasm or tenderness
Cardiovascular: Heart: regular, no murmur
Pulses: dorsalis pedis 2+ bilaterally
Respiratory: Respiratory Effort/Chest Expansion: normal Auscultation: Clear to auscultation bilaterally
Gastrointestinal: abdomen not tender, no distension, normal abdominal bowel sounds
Genitourinary: No Cortez
Rectal Exam: Deferred
Extremities: Edema: None Cyanosis: None Trophic changes: None
Neurology Exam:
Orientation: Alert, Oriented to self, Time, Place
Memory: Intact immediately and at 5 minutes
Higher cortical function: Able to count from 10 to 0 by 2
Two step command: Intact
Naming: Intact ( No difficulties observed this morning)
Cranial Nerves:
CNII: Pupillary light reflex: Intact Visual Field: Intact
CN III, IV, : Extraocular muscles: Intact
CN V: Facial Sensation at Forehead: Intact, Maxilla: Intact, Mandible: Intact
CN VII: Facial movement: Symmetric
CN VIII: Hearing: Normal with conversation volume
CN IX/X: Speech & swallow: Normal, Position of Uvula: Midline
CN XI: Shoulder shrug: Symmetric
CN XII: Tongue protrusion: Midline
Sensory:
Light touch: Intact in bilateral upper and lower extremities
Reflexes:
Biceps: 2+ bilaterally
Brachioradialis: 2+ bilaterally
Triceps: 2+ bilaterally
Patellar: 2+ bilaterally
Achilles: 2+ bilaterally
Babinski: Down going bilaterally
Clonus: None
Eileen: Negative bilaterally
Cerebellar: Dysmetria/Ataxia: None
Musculoskeletal:
Motor: (Manual muscle scale 0-5)
Bilateral Upper extremity motor strength: 5/5
Right HF/KE/KF motor exam was limited due pain due her surgery. Right DF/PF muscle strength 5/5
Left LE muscle strength 5/5
Tone: Normal in all extremities
Range of Motion: Passively within normal limits in all extremities. Limited on right hip and knee.
Lab Results
Lab Results - Hematology
02/26/24 02/27/24 02/28/24
10:47 03:23 03:26
WBC 12.1 H 10.9 H 9.9
Lab Results - Chemistry
02/26/24 02/27/24 02/28/24
10:47 03:23 03:26
BUN 44 H 56 H 53 H
Creatinine 2.0 H 2.3 H 2.2 H
Estimated Creat Clear 19 19
Laboratory Data
PT 15.2 Sec (11.4-14.6) H 02/24/24 05:01
APTT 30.6 Sec (23.4-35.0) 02/24/24 05:01
Diagnostic Results:
Head CT: 02/25/24: IMPRESSION:
1. No CT evidence for acute intracranial hemorrhage or transcortical infarct.
2. 4 mm chronic lacunar infarct in the posterior limb of the right internal capsule.
3. Moderate distention of the ventricular system which appears unchanged (either ex vacuo dilatation or normal pressure communicating hydrocephalus).
4. Moderate cerebellar volume loss.
Brain MRI: 02/27/24: IMPRESSION:
1. No MRI evidence for acute infarct or intracranial hemorrhage.
2. Chronic 6.5 mm lacunar infarct in the inferior right basal ganglia.
3. Moderate chronic distention of the lateral ventricles.
4. Mild to moderate diffuse cerebral and cerebellar volume loss.
5. Small multilevel disc herniations in the cervical spine and severe right-sided facet joint arthrosis at C4/C5. Moderate spinal cord compression and central canal stenosis at C4/C5.
Assessment: 74 yo female who had postoperative confusion after she had femoral endarterectomy which persisted from February 24 to February 26. Some difficulty with her mental status was observed and the patient had head CT and brain MRI. The imaging
studies did not show any acute changes and the mental status of the patient improved over time. She was oriented, awake and alert this morning. The patient complains some pain around her surgery area. She needs supervision with her transfer and
ambulation.
Plan
PM&R, PT/OT to increase independence with ADLs, improve balance, coordination, endurance, strength, mobility, community reintegration, decreased burden of care on others and family education.
Postoperative confusion: Neurology saw the patient today and the patient has imaging studies which showed no acute abnormalities. The confusion was resolved now. Carotid Vascular US is planning to be completed today.
Right leg pain:Surgery area has pain around the surgery site. No infection sign. No drainage around the stitches. Has pain on the RLE due surgery.
Acute on chronic CKD: Creatinine level is 2.2. Monitor electrolytes tomorrow. Okay to continue with oral Lasix-hold diuretics for tomorrow. Encourage oral hydration.
DM: control-insulin subcu. Target 100-180
Anemia: Stable.
DVT prophylaxis:heparin subcu
Functional and Medical Goals: Independent with ADL�s, ambulation, transfers
Discharge Destination: SNF or home care with PT/OT was recommended to the patient.
Summary of recommendations:
- Discharge Destination: Home care with OT/PT. SNF and home care was discussed with the patient to improve and gain physical skills soon. The patient reported that she prefers to got home and has home care.
Postoperative confusion after Right femoral artery endarterectomy: It seems the confusion of the patient was resolved today. Continue to monitor neurologic status. Neurology follow up can be recommended.
Please contact me with any questions or concerns. Thanks Dr Banks for involving me in this patient`s care.
Wen Rollins MD
Transitional Year [facility]

Documented by User: Melvin Banks MD 02/28/24 23:50
Consultation - Medical
-
Referring Provider: Neal Cortez III, MD
Chief Complaint: Altered mental status
History of Present Illness: The patient is a 74 year old right handed female who presented to the hospital with (chief complaint) of of right leg pain secondary to aortic stenosis (<50%) right common iliac stenosis, right femoral artery stenosis
with stenosis of the origin of the right profunda femoris who has been having claudication on walking and intermittent rest pain. She underwent a staged arterial procedure which included a right-sided femoral endarterectomy with bovine pericardial
patch angioplasty and shockwave lithotripsy, retrograde iliac angio plasty with stenting on 02/24/24. Postoperatively she was found confused, disoriented and lethargic. Postoperative confusion was noted which was persisted from February 24 to
February 26. The imaging studies did not show any acute abnormalities. Today the patient was seen in her bed in the morning. She was oriented, awake and alert. No difficulty was observed with her talking, naming and communicating.
Past Medical History: HT, DM, glaucoma, HL, CKD stage III-IV, CAD, GUD, mesenteric vascular insufficiency with dissection
Procedure History: Gastric bypass, get cardiac catheterization, cardiac stenting
Family History: Father: HT, CAD Mother:HT, DM
Social History: lives at home with his
Functional Level Premorbidly: Independent with all activities
Functional Level Currently:Bed mobility-supervision / Sit to stand- Supervision/Stand to sit- Supervision/Ambulation Patient ambulated 80' x2 with RW and close supervision
Tobacco: Denies
Alcohol: Occasionally
Drug use: Denies
Lives with:
24-hour assistance available: Yes
Number of floors: Multi-level
# steps to enter: 4
Potential First floor set up:available
Driving: yes
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
Review of the systems
Eye: (x) abNormal _fatigue
Ear/Nose/Throat: (x) Normal _
Respiratory: (x) Normal _
Cardiovascular: (x) Normal _
Gastrointestinal: (x) Normal _
Genitourinary: (x) Normal _
Musculoskeletal:Stitches on the right medial thigh area which is compliant with her recent surgery (femoral endarterectomy). No drainage, warmness or redness around it. The area is some sensitive to touch. There is some bruising on the thigh area
probably related surgery.
Integumentary: (x) Normal _
Neurologic: (x) Oriented X3, short memory intact.
Psychiatric: (x) Normal _
Endocrine: (x) Normal _
Hematologic/Lymphatic: (x) Normal _
Allergic/Immunologic: (x) Normal _
Allergies
Allergy/AdvReac Type Severity Reaction Status Date / Time
MARCELL Inhibitors Allergy Swelling/AN Verified 02/17/24 09:24
[Marcell Inhibitors] GIOEDEMA
chamomile flower Allergy Rash Verified 02/17/24 09:24
Sulfa (Sulfonamide Allergy Rash Verified 02/17/24 09:24
Antibiotics)
sulfite Allergy VASCULITIS Verified 02/17/24 09:24
Home Medications
clopidogrel 75 mg tablet 75 mg PO DAILY Blood clot prevention/tx 05/17/19
ezetimibe 10 mg tablet 10 mg PO DAILY High cholesterol 05/17/19
insulin aspart U-100 100 unit/mL (3 mL) subcutaneous pen (Novolog FlexPen U-100 Insulin aspart) 2 - 8 units SC .SLIDING SCALE MEALS Diabetes 05/08/20
sodium bicarbonate 650 mg tablet 650 mg PO BID Electrolyte Repletion 05/08/20
pregabalin 150 mg capsule (Lyrica) 300 mg PO HS Pain 07/11/20
insulin glargine 100 unit/mL (3 mL) subcutaneous pen (Basaglar KwikPen U-100 Insulin) 38 unit SC HS Diabetes 07/10/21
atorvastatin 40 mg tablet 40 mg PO HS High Cholesterol 02/03/24
cholecalciferol (vitamin D3) 50 mcg (2,000 unit) capsule (Vitamin D3) 50 mcg PO DAILY Supplement 02/03/24
coenzyme Q10 400 mg capsule (Co Q-10) 400 mg PO HS Supplement 02/03/24
febuxostat 40 mg tablet 40 mg PO HS Gout 02/03/24
furosemide 40 mg tablet (Lasix) 40 mg PO DAILY Fluid Retention/Swelling 02/03/24
spironolactone 25 mg tablet 25 mg PO DAILY Fluid Retention/Swelling 02/03/24
hydralazine 25 mg tablet 25 mg PO BID Blood Pressure 02/17/24
tramadol 25 mg tablet 25 mg PO Q6H PRN pain 02/23/24
tramadol 50 mg tablet 25 mg (1/2 x 50 mg) PO Q6HPRN PRN MODERATE PAIN #10 tabs 02/24/24
Vitals:
Vital Signs
Temp Pulse Resp BP Pulse Ox
97.7 F 90 18 158/78 98
02/28/24 15:47 02/28/24 15:57 02/28/24 15:47 02/28/24 15:57 02/28/24 15:47
Physical Exam:
General Appearance/Observation: Well-developed, well-nourished individual in no apparent distress.
Pain/Comfort Assessment: endorses
Location: On the right side thigh area
Mood/Affect: Appropriate
Integumentary/Operative Site:
Pressure Ulcer Evaluation: absent over heels.
Eyes: Conjunctiva/Lids: normal Pupils: pupils equal round and reactive to light and Accommodation
Ears/Nose/Throat: oral mucosa moist, throat clear. Lips/Teeth/Gums: normal
Neck: No muscle spasm or tenderness
Cardiovascular: Heart: regular, no murmur
Pulses: dorsalis pedis 2+ bilaterally
Respiratory: Respiratory Effort/Chest Expansion: normal Auscultation: Clear to auscultation bilaterally
Gastrointestinal: abdomen not tender, no distension, normal abdominal bowel sounds
Genitourinary: No Cortez
Rectal Exam: Deferred
Extremities: Edema: None Cyanosis: None Trophic changes: None
Neurology Exam:
Orientation: Alert, Oriented to self, Time, Place
Memory: Intact immediately and at 5 minutes
Higher cortical function: Able to count from 10 to 0 by 2
Two step command: Intact
Naming: Intact
Cranial Nerves:
CNII: Pupillary light reflex: Intact Visual Field: Intact
CN III, IV, : Extraocular muscles: Intact
CN V: Facial Sensation at Forehead: Intact, Maxilla: Intact, Mandible: Intact
CN VII: Facial movement: Symmetric
CN VIII: Hearing: Normal with conversation volume
CN IX/X: Speech & swallow: Normal, Position of Uvula: Midline
CN XI: Shoulder shrug: Symmetric
CN XII: Tongue protrusion: Midline
Sensory:
Light touch: Intact in bilateral upper and lower extremities
Reflexes:
Biceps: 2+ bilaterally
Brachioradialis: 2+ bilaterally
Triceps: 2+ bilaterally
Patellar: 2+ bilaterally
Achilles: 2+ bilaterally
Babinski: Down going bilaterally
Clonus: None
Eileen: Negative bilaterally
Cerebellar: Dysmetria/Ataxia: None
Musculoskeletal:
Motor: (Manual muscle scale 0-5)
Bilateral Upper extremity motor strength: 5/5
Right HF/KE/KF 3-4/5 motor exam was limited due pain due her surgery. Right DF/PF muscle strength 5/5
Left LE muscle strength 5/5
Tone: Normal in all extremities
Range of Motion: Passively within normal limits in all extremities. Limited on right hip and knee.
Lab Results
Lab Results - Hematology
02/26/24 02/27/24 02/28/24
10:47 03:23 03:26
WBC 12.1 H 10.9 H 9.9
Lab Results - Chemistry
02/26/24 02/27/24 02/28/24
10:47 03:23 03:26
BUN 44 H 56 H 53 H
Creatinine 2.0 H 2.3 H 2.2 H
Estimated Creat Clear 19 19
Laboratory Data
PT 15.2 Sec (11.4-14.6) H 02/24/24 05:01
APTT 30.6 Sec (23.4-35.0) 02/24/24 05:01
Diagnostic Results:
Head CT: 02/25/24: IMPRESSION:
1. No CT evidence for acute intracranial hemorrhage or transcortical infarct.
2. 4 mm chronic lacunar infarct in the posterior limb of the right internal capsule.
3. Moderate distention of the ventricular system which appears unchanged (either ex vacuo dilatation or normal pressure communicating hydrocephalus).
4. Moderate cerebellar volume loss.
Brain MRI: 02/27/24: IMPRESSION:
1. No MRI evidence for acute infarct or intracranial hemorrhage.
2. Chronic 6.5 mm lacunar infarct in the inferior right basal ganglia.
3. Moderate chronic distention of the lateral ventricles.
4. Mild to moderate diffuse cerebral and cerebellar volume loss.
5. Small multilevel disc herniations in the cervical spine and severe right-sided facet joint arthrosis at C4/C5. Moderate spinal cord compression and central canal stenosis at C4/C5.
Assessment:
74 yo female who had postoperative confusion after she had femoral endarterectomy which persisted from February 24 to February 26. Some difficulty with her mental status was observed and the patient had head CT and brain MRI. The imaging studies did
not show any acute changes and the mental status of the patient improved over time. She was oriented, awake and alert this morning. The patient complains some pain around her surgery area. She needs supervision with her transfer and ambulation.
Plan
PM&R, PT/OT to increase independence with ADLs, improve balance, coordination, endurance, strength, mobility, community reintegration, decreased burden of care on others and family education.
Postoperative confusion: Neurology saw the patient today and the patient has imaging studies which showed no acute abnormalities. The confusion was resolved now. Carotid Vascular US is planning to be completed today.
Right leg pain:Surgery area has pain around the surgery site. No infection sign. No drainage around the stitches. Has pain on the RLE due surgery.
Acute on chronic CKD: Creatinine level is 2.2. Monitor electrolytes tomorrow. Okay to continue with oral Lasix-hold diuretics for tomorrow. Encourage oral hydration.
PAD S/P femoral endarterectomy: monitor incision
DM: control-insulin subcu. Target 100-180
Anemia: Stable.
DVT prophylaxis:heparin subcu
Functional and Medical Goals: Independent with ADL�s, ambulation, transfers
Discharge Destination: SNF or home care with PT/OT was recommended to the patient.
Summary of recommendations:
- Discharge Destination: Home care with OT/PT. SNF and home care was discussed with the patient to improve and gain physical skills soon. The patient reported that she prefers to got home and has home care.
Postoperative confusion after Right femoral artery endarterectomy: It seems the confusion of the patient was resolved today. Continue to monitor neurologic status. Neurology follow up can be recommended.
Please contact me with any questions or concerns. Thanks Dr Banks for involving me in this patient`s care.
Wen Rollins MD
Transitional Year Residency [facility]
Attending Statement: I saw and examined the patient today.� Reviewed care plan with patient and resident.� I agree with the above subjective and physical exam, and plan as documented with adjustments made as necessary. Overall patient is doing
well now that metabolic encephalopathy has resolved. She would benefit from SNF but would like to do homecare with PT/OT/ RN. Discussed with her at length. can help at home. No driving until cleared by therapy/physician.
--- NOTE | 2024-02-28 12:18 | CM ---
CM following re: discharge planning.
Discussed in Rounds, reviewed pt's chart, met with pt and pt's at bedside.
According to pt most likely will be ready for discharge today. Both pt and her are aware. IMM reviewed, placed on chart, pt has a copy.
PT and OT recommended acute rehab level of care yesterday. Today, PT and OT re-evaluated the pt and home PT and a walker recommended. Both pt and her are aware, expressed their agreement. A list of [facility] vendors provided. Pt preferred [facility]. A
referral to [facility] made.
PT to issue a walker. is aware of placing a script for a walker.
Please fax discharge instructions to [facility] at [phone]
D/C plan: home with [facility] and family support. to transport at discharge.
[2024-02-28] MEDS: NOVOLOG FLEXPEN-MODERATE RESISTANCE 3 UNITS SC (12:41)
[2024-02-28 12:51] LABS: Glucose - Point of Care 224 mg/dl (70-99)
--- NOTE | 2024-02-28 15:13 | PTCARENOTE ---
Pt arrived from ICU to South via wheelchair. Patient walked from wheelchair to bed x1 assist. 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 Pt states mild pain at this time in her R thigh. Pt oriented to
call duran and room, bed locked in lowest position, call duran within reach.
[2024-02-28] MEDS: ULTRAM 25 MG PO ×2 (15:20→21:44)
[2024-02-28 16:51] LABS: Glucose - Point of Care 264 mg/dl (70-99)
[2024-02-28] MEDS: NOVOLOG FLEXPEN-MODERATE RESISTANCE 5 UNITS SC (16:51)
[2024-02-28 21:36] LABS: Glucose - Point of Care 89 mg/dl (70-99)
[2024-02-28] MEDS: LIPITOR 40 MG PO (21:44)
[2024-02-28] MEDS: ULORIC 40 MG PO (21:44)
[2024-02-28] MEDS: LANTUS SC (21:45)
[2024-02-29 02:55] VITALS: BP 124/62
[2024-02-29 07:16] LABS: Glucose - Point of Care 116 mg/dl (70-99)
[2024-02-29] MEDS: NOVOLOG FLEXPEN-MODERATE RESISTANCE SC (07:16)
[2024-02-29 07:42] VITALS: BP 121/50
--- NOTE | 2024-02-29 07:46 | W.PN.VS ---
Addendum entered and electronically signed by Chapin Stahl MD 02/29/24 07:57:
Seen and examined with SEATING CAPTAIN. Agree with findings as noted below. Patient feeling well today. She notes her confusion is resolved. She notes that her preoperative right calf rest pain is fully resolved. She is awake and alert. Oriented x 3.
Abdomen is soft, nondistended, nontender. Right groin incision is clean dry and intact. No hematoma. 2+ femoral pulse palpable. Right foot is warm with 1+ palpable DP pulse. Plan/as discussed and noted below.
Original Note:
Today's Communication / Plan
-
Seen and assessed with Dr. Stahl
Assessment/Plan
-
POD6 Right femoral endarterectomy with bovine pericardial patch angioplasty, shockwave lithotripsy and stent right iliac artery
Plan:
Discharge with home care/home PT
Continue dual antiplatelet therapy
Subjective Data
-
Date of Service: February 29, 2024
Patient seen at bedside today with Dr. Stahl. No events overnight. Patient feeling very well this morning and excited to go home.
Objective Data
-
Vital Signs
Temp Pulse Resp BP Pulse Ox
97.7 F 58 16 121/50 97
02/29/24 07:42 02/29/24 07:42 02/29/24 07:42 02/29/24 07:42 02/29/24 07:42
Intake and Output
02/28/24 02/29/24 03/01/24
06:59 06:59 06:59
Intake Total 1965 / 1965 730 / 730 240 / 240
Output Total 950 / 950 300 / 300
Balance 1015 / 1015 430 / 430 240 / 240
Intake:
Oral fluids 840 / 840 730 / 730 240 / 240
IV fluids (Total) 1124 / 1125
Nss 500 ml @ 75 mls/hr IV . 1124 112
[id number] BERNADINE Rx#:[id number]
Output:
Urine, Voided 950 / 950 300 / 300
Other:
Number of approximated SMALL 1
amounts of urine
Number of approximated MODERATE 1 1
amounts of urine
Lab Results
02/28/24 03:26
02/28/24 03:26
Calcium 9.3 mg/dl (8.4-10.2) 02/28/24 03:26
Physical Exam
-
resting in bed comfortably, awake alert oriented x 3
Non labored breathing
Abd soft, NT
Right groin incision clean/dry/no infection/no drainage
Feet warm bilat, right foot DP +2 palpable
Strength = and symmetric b/l UE's/LE's
[2024-02-29] MEDS: HEPARIN 5000 UNITS SC (09:07)
[2024-02-29] MEDS: VITAMIN D3 (cholecalciferol) 50 MCG PO (09:08)
[2024-02-29] MEDS: PROTONIX 40 MG PO (09:08)
[2024-02-29] MEDS: LOW STRENGTH ASPIRIN 81 MG PO (09:08)
[2024-02-29] MEDS: ZETIA 10 MG PO (09:08)
[2024-02-29] MEDS: ALDACTONE 25 MG PO (09:08)
[2024-02-29] MEDS: PLAVIX 75 MG PO (09:08)
[2024-02-29] MEDS: APRESOLINE 25 MG PO (09:09)
[2024-02-29] MEDS: SODIUM BICARBONATE 650 MG PO (09:09)
[2024-02-29] MEDS: LASIX 40 MG PO (09:09)
[2024-02-29] MEDS: MIRALAX PO (09:11)
[2024-02-29] MEDS: ULTRAM 25 MG PO (09:49)
[2024-02-29 09:51] VITALS: BP 121/50; PULSE 58; O2SAT 97
--- NOTE | 2024-02-29 10:01 | VNURNOTE ---
Home Health Liaison met with patient at bedside to discuss [facility] nurse/therapy, visits, schedule and homebound status. Patient is agreeable and understands that visits at home will be 2-3 x per week to assess and teach medical management. [facility]
brochure provided with contact information. Patient is aware that [facility] will contact them for start of care in 1-2 days after discharge from .
[facility] referral accepted in Care Port.
--- NOTE | 2024-02-29 10:02 | CM ---
CM reviewed chart and noted dc order
Bedside update with pt
Plan for home with [facility] and [facility] issued by PT
[facility] script and VN order on chart
Son will transport
He is a manufacturing software engineer and will transporting in his ambulance
Per chart review, no BLS medical necessity- form not completed
Discharge Disposition- home with [facility] and new [facility]- family transport
[2024-02-29 11:35] VITALS: BP 139/53
--- NOTE | 2024-02-29 11:39 | PN.CDI ---
CDI
- -
CDI:
Physician Documentation Request
Admit Date: 02/23/24 09:22
Dear Beatriz Adams,
Patient is s/p right femoral endarterectomy with bovine pericardial patch angioplasty, shockwave lithotripsy and stent right iliac artery.
02/25 vascular progress note states 'Patient kept yesterday for confusion This morning she knows person, place but not time or president'
02/26 technical operations vice president not states 'Toxic metabolic encephalopathy' Further down in same note 'Unclear etiology-patient with hypoactive delirium-possibly hospital delirium/medication related tramadol/morphine etc/sleep deprivation.'
Neuro consultation states 'Differentials for the patient's presentation include:1. NPH 2.Post anesthesia'
Could you please clarify the most likely etiology of the confusion/altered mental status.
Toxic Metabolic Encephalopathy -
Acute Delirium - indicate known or suspected etiology such as postoperative, due to opioids or other drugs etc. Can also indicate unknown or mixed etiologies.
NPH
Other
Use of terms such as suspected, likely, concern for, or probable (associated with a specific diagnosis that is being evaluated, monitored, or treated as if it exists) are acceptable and can be coded in the inpatient setting, when documented at the
time of discharge.
Thank you,
Winter Quevedo RN, BSN
CDI Specialist
tiger text
Please use your independent medical judgment in providing your response.
--- NOTE | 2024-02-29 11:51 | PN.CDI ---
CDI
- -
CDI:
Physician Documentation Request
Admit Date: 02/23/24 09:22
Dear Beatriz Adams,
Patient is s/p Right femoral endarterectomy with bovine pericardial patch angioplasty, shockwave lithotripsy and stent right iliac artery.
Noted history of CKD 4.
Most recent creatinine :
Laboratory Tests
02/25/24 02/26/24 02/27/24
08:50 10:47 03:23
Creatinine 1.8 H 2.0 H 2.3 H
02/28/24
03:26
Creatinine 2.2 H
Please clarify which of the following accurately represents the patient's renal status:
____ - Acute kidney injury on CKD 4
____ - CKD 4 only
____ - Other
Criteria for JESI*
1 Increase in serum creatinine by > or = to 0.3 mg/dL (> or = to 26.5 micromol/L) within 48 hours, OR
2 Increase in serum creatinine to > or = to 1.5 times baseline, which is known or presumed to have occurred within 7 days, OR
3 Urine volume < 0.5 nL/kg/hour for six hours
Use of terms such as suspected, likely, concern for, or probable (associated with a specific diagnosis that is being evaluated, monitored, or treated as if it exists) are acceptable and can be coded in the inpatient setting, when documented at the
time of discharge.
Thank you,
Winter Quevedo RN, BSN
CDI Specialist
tiger text
Please use your independent medical judgment in providing your response.
*Source: Kidney Disease: Improving Global Outcomes (KDIGO) 2012
--- NOTE | 2024-02-29 14:01 | W.PN.UPDATE ---
Update Note
Progress Note Update
CDI:
Physician Documentation Request
Admit Date: 02/23/24 09:22
Patient is s/p Right femoral endarterectomy with bovine pericardial patch angioplasty, shockwave lithotripsy and stent right iliac artery.
Noted history of CKD 4.
Most recent creatinine :
Laboratory Tests
02/25/24 02/26/24 02/27/24
08:50 10:47 03:23
Creatinine 1.8 H 2.0 H 2.3 H
02/28/24
03:26
Creatinine 2.2 H
Please clarify which of the following accurately represents the patient's renal status:
- CKD 4 only
--- NOTE | 2024-02-29 15:50 | PN.CDI ---
CDI
- -
CDI:
Physician Documentation Request
Admit Date: 02/23/24 09:[address] Bahena,
Patient is s/p right femoral endarterectomy with bovine pericardial patch angioplasty, shockwave lithotripsy and stent right iliac artery.
02/25 vascular progress note states 'Patient kept yesterday for confusion This morning she knows person, place but not time or president'
02/26 cap inspector not states 'Toxic metabolic encephalopathy' Further down in same note 'Unclear etiology-patient with hypoactive delirium-possibly hospital delirium/medication related tramadol/morphine etc/sleep deprivation.'
Neuro consultation states 'Differentials for the patient's presentation include:1. NPH 2.Post anesthesia'
Could you please clarify the most likely etiology of the confusion/altered mental status.
Toxic Metabolic Encephalopathy -
Acute Delirium - indicate known or suspected etiology such as postoperative, due to opioids or other drugs etc. Can also indicate unknown or mixed etiologies.
NPH
Other
Use of terms such as suspected, likely, concern for, or probable (associated with a specific diagnosis that is being evaluated, monitored, or treated as if it exists) are acceptable and can be coded in the inpatient setting, when documented at the
time of discharge.
Thank you,
Winter Quevedo RN, BSN
CDI Specialist
tiger text
Please use your independent medical judgment in providing your response.
== END 2024-02-29 12:15 | disposition home health service (06) | DRG 270 ==
LOC: 2 SOUTH 09:22
PROVIDERS: Nurse Practitioner Acute Care; Nurse Practitioner Family; Surgery Vascular Surgery; ADMITTING PHYSICIAN Surgery Vascular Surgery; CONSULT PHYSICIAN Internal Medicine Critical Care Medicine; CONSULT PHYSICIAN Physical Medicine & Rehabilitation; CONSULT PHYSICIAN Psychiatry & Neurology Neurology; FAMILY PHYSICIAN Internal Medicine
PROC: 047C3DZ Dilation of Right Common Iliac Artery with Intraluminal Device, Percutaneous Approach (ICD-10-PCS; 2024-02-23)
PROC: 04UH0KZ Supplement Right External Iliac Artery with Nonautologous Tissue Substitute, Open Approach (ICD-10-PCS; 2024-02-23)
PROC: 04CH0ZZ Extirpation of Matter from Right External Iliac Artery, Open Approach (ICD-10-PCS; 2024-02-23)
PROC: 04FC3ZZ Fragmentation of Right Common Iliac Artery, Percutaneous Approach (ICD-10-PCS; 2024-02-23)
DX: I70.221 Atherosclerosis of native arteries of extremities with rest pain, right leg (principal); G92.8 Other toxic encephalopathy; N18.4 Chronic kidney disease, stage 4 (severe); G47.33 Obstructive sleep apnea (adult) (pediatric); E11.22 Type 2 diabetes mellitus with diabetic chronic kidney disease; I25.10 Atherosclerotic heart disease of native coronary artery without angina pectoris; Z79.4 Long term (current) use of insulin; Z98.84 Bariatric surgery status; Z95.5 Presence of coronary angioplasty implant and graft; Z88.2 Allergy status to sulfonamides
CPT/HCPCS: 88304; 88311; 35371; 36415; 70450; 70553; 71045; 71046; 80048; 81003; 82607; 82746; 82962; 84443; 85025; 85027; 85610; 85730; 86850; 86900; 86901; 87070; 93005; 93880; 97110; 97116; 97163; 97166; 97530; A9575; C1769; C1874; C1894; C9765; Q9967

== ENCOUNTER 2024-03-17 22:27 | Emergency (ER) | payer MEDICARE, OTHER, SELFPAY ==
[2024-03-17 22:29] VITALS: BP 214/92
[2024-03-17 22:51] LABS: % Basophils 0.6 % (0-2); % Immature Granulocytes 0.1 % (0-0.5); % Lymphocytes 32.3 % (20.5-51.1); % Monocytes 7.7 % (1.7-9.3); % Neutrophils 52.3 % (42.2-75.2); Absolute Eosinophils 0.5 10^3/uL (0-0.7); Absolute Lymphocytes 2.3 10^3/uL (1.2-3.4); Absolute Monocytes 0.5 10^3/uL (0.1-0.6); Absolute Neutrophils 3.7 10^3/uL (1.4-6.5); Hematocrit 36.3 % (37.0-47.0); Hemoglobin 11.7 g/dL (12.0-16.0); Mean Corp Hgb Conc. 32.2 g/dL (33.0-37.0); Mean Corpuscular Hgb 26.9 pg (27.0-31.0); Mean Corpuscular Volume 83.4 fL (81.0-99.0); Mean Platelet Volume 12.2 fL (7.4-10.4); Nucleated Red Blood Cells % 0 %; Platelet Count 235 10^3/uL (130-400); Red Blood Cell Count 4.35 10^6/uL (4.20-5.40); Red Cell Dist. Width 15.3 % (11.5-14.5)
[2024-03-17 23:03] VITALS: BMI 27.0
[2024-03-17 23:07] LABS: ALT (SGPT) 16 U/L (0-35); AST (SGOT) 21 U/L (14-36); Albumin 4.3 g/dl (3.5-5.0); Alkaline Phosphatase 111 U/L (38-126); Blood Urea Nitrogen 53 mg/dl (7-17); Calcium 9.4 mg/dl (8.4-10.2); Carbon Dioxide 30 mmol/L (22-30); Chloride 99 mmol/L (98-107); Estimated Creatinine Clearance 17 ml/min; Glucose 309 mg/dl (70-99); Potassium 4.6 mmol/L (3.5-5.1); Sodium 140 mmol/L (135-145); Total Bilirubin 0.6 mg/dl (0.2-1.3); Total Protein 6.5 g/dl (6.3-8.2); eGFR 18.78
[2024-03-17 23:09] VITALS: BP 176/79
[2024-03-17 23:54] LABS: NT-proBNP 915 pg/ml
[2024-03-18] VITALS: BP 197/63
--- NOTE | 2024-03-18 | ED.GENMED ---
History of Present Illness
<GATO Martinez - Last Filed: 03/18/24 06:02>
General
Chief Complaint: Breathing Problem
Time Seen by Provider: 03/18/24 00:00
History of Present Illness
History of Present Illness:
Patient is a 74 year old female who had a femoral endarterectomy presenting with shortness of breath x 3 days. The endarterectomy was February 22 and there were no complications. She states the sob comes and goes and is worse at night. At the time
speaking with her, she was in no respiratory distress. She has interstitial lung disease after having covid in 2019, says it is not an exacerbation of the ILD. Patient denies chest pain palpitations cough fever light headedness hemoptysis abdominal
pain nausea vomiting.
Patient has a history of HTN HLD DM all controlled on medication. She denies any tobacco or alcohol use.
Past History
<GATO Martinez - Last Filed: 03/18/24 06:02>
Past History
ED Past Medical History: CAD, GERD, HTN, Hypercholesterolemia, IDDM and Other (COVID-19, anemia, peripheral vascular disease, chronic kidney disease, celiac artery dissection, anemia, HSP)
ED Past Surgical History: Cardiac
Social History
Tobacco: Non-smoker
Alcohol: Occasional
Drug: None
Personal:
Living: with family
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
Family History
Family History: Other (Father with CAD, mother with diabetes)
Review of Systems
<GATO Martinez Last Filed: 03/18/24 06:02>
Review of Systems
Constitutional: Reports no symptoms
Respiratory: Reports trouble breathing
Cardiac: Reports no symptoms
ABD/GI: Reports no symptoms
Neurological: Reports no symptoms
Phy Exam
<GATO Martinez - Last Filed: 03/18/24 06:02>
Physical Exam
Physical Exam:
see physical
Cardiovascular Exam
Cardiovascular Exam: regular rate/rhythm, no edema, no gallop, no JVD and no murmur
Pulmonary Exam
Pulmonary Exam: no respiratory distress, chest non tender, no wheezing and no cough
Cough: no cough
Breath Sounds: Crackles: generalized
Scores
<GATO Martinez - Last Filed: 03/18/24 06:02>
Heart Failure Risk
HF Risk Score: 2
Admission Status: MEDIUM RISK 9.2% Consider observation or discharge to home with homecare & f/u visit to PCP/Front Desk Associate, or SNF for treatment
<Agnes Chen DO - Last Filed: 03/18/24 02:54>
Heart Failure Risk
Heart Failure Risk Score: Yes
History of Stroke or TIA: Yes
History of intubation for respiratory distress: No
Heart rate on ED arrival >/= 110: No
SaO2 <90% on arrival on room air: No
HR >/=110 during 3min walk test (or too ill to perform test): No
ECG has acute ischemic changes: No
Urea >/=12mmol/L (BUN 33.6mg/dL): Yes
Serum CO2>/=35mmol/L: No
Troponin I or T elevated to AR Level (0.4mg/dL): No
NT-proBNP >/=5,000ng/L (5,000pg/ml): No
HF Risk Score: 2
Admission Status: MEDIUM RISK 9.2% Consider observation or discharge to home with homecare & f/u visit to PCP/Front Desk Associate, or SNF for treatment
Course
<GATO Martinez - Last Filed: 03/18/24 06:02>
Orders/Labs/Results
Orders:
Orders
03/17/24 22:35
Electrocardiogram (*1) Urgent
Reason for Study: Shortness of Breath
EKG- Treatment ONCE
03/17/24 22:44
Complete Blood Count/With Diff Urgent
Comprehensive Metabolic Panel Urgent
03/17/24 23:17
Pro-BNP [NT-proBNP] Urgent
Troponin I Urgent
Comment: ADD ON
03/18/24 00:24
CR Chest - 2 Views Urgent
Comment:
Reason For Exam: SOB x few days
03/18/24 00:31
Add On- LAB Urgent
Tests Added?: troponin
Abnormal Lab Results
03/17/24
22:44
Hgb 11.7 L g/dL
(12.0-16.0)
Hct 36.3 L %
(37.0-47.0)
MCH 26.9 L pg
(27.0-31.0)
MCHC 32.2 L g/dL
(33.0-37.0)
RDW 15.3 H %
(11.5-14.5)
MPV 12.2 H fL
(7.4-10.4)
Eosinophils % 7.0 H %
(0-6)
BUN 53 H mg/dl
(7-17)
Creatinine 2.6 H mg/dL
(0.6-1.0)
Glucose 309 H mg/dl
(70-99)
03/17/24 22:44
03/17/24 22:44
Vital Signs
Initial and Last Documented VS:
Initial Vital Signs
Temp Pulse Resp BP Pulse Ox
98.9 F 64 26 214/92 97
03/17/24 22:29 03/17/24 22:29 03/17/24 22:29 03/17/24 22:29 03/17/24 22:29
Last Documented Vital Signs
Temp Pulse Resp BP Pulse Ox
98.1 F 61 14 120/49 98
03/18/24 00:26 03/18/24 02:45 03/18/24 02:45 03/18/24 02:00 03/18/24 02:45
<Agnes Chen, DO - Last Filed: 03/18/24 02:54>
Orders/Labs/Results
Orders:
Orders
03/17/24 22:35
Electrocardiogram (*1) Urgent
Reason for Study: Shortness of Breath
EKG- Treatment ONCE
03/17/24 22:44
Complete Blood Count/With Diff Urgent
Comprehensive Metabolic Panel Urgent
03/17/24 23:17
Pro-BNP [NT-proBNP] Urgent
Troponin I Urgent
Comment: ADD ON
03/18/24 00:24
CR Chest - 2 Views Urgent
Comment:
Reason For Exam: SOB x few days
03/18/24 00:31
Add On- LAB Urgent
Tests Added?: troponin
Abnormal Lab Results
03/17/24
22:44
Hgb 11.7 L g/dL
(12.0-16.0)
Hct 36.3 L %
(37.0-47.0)
MCH 26.9 L pg
(27.0-31.0)
MCHC 32.2 L g/dL
(33.0-37.0)
RDW 15.3 H %
(11.5-14.5)
MPV 12.2 H fL
(7.4-10.4)
Eosinophils % 7.0 H %
(0-6)
BUN 53 H mg/dl
(7-17)
Creatinine 2.6 H mg/dL
(0.6-1.0)
Glucose 309 H mg/dl
(70-99)
03/17/24 22:44
03/17/24 22:44
Vital Signs
Initial and Last Documented VS:
Initial Vital Signs
Temp Pulse Resp BP Pulse Ox
98.9 F 64 26 214/92 97
03/17/24 22:29 03/17/24 22:29 03/17/24 22:29 03/17/24 22:29 03/17/24 22:29
Last Documented Vital Signs
Temp Pulse Resp BP Pulse Ox
98.1 F 61 14 120/49 98
03/18/24 00:26 03/18/24 02:45 03/18/24 02:45 03/18/24 02:00 03/18/24 02:45
<GATO Martinez - Last Filed: 03/18/24 06:02>
MDM/Problems Addressed
Differential Diagnosis Includes:
angina, ILD exacerbation, heart failure
MDM/Problems Addressed:
monitor symptoms order cardiac enzymes and bloodwork
<GATO Martinez - Last Filed: 03/18/24 06:02>
*Critical Care Note
Total Time (30-74mins, 75-104mins- exclusive of procedures): Not Applicable
<Agnes Chen DO - Last Filed: 03/18/24 02:54>
*Radiology
Radiology exam reviewed: radiology read reviewed (Chest x-ray shows stable bibasilar linear scarring. No evidence of CHF nor infiltrate.)
*Pulse Oximetry
Patient hypoxic: no
*EKG
Interpreted by ED Provider?: Yes
Comparison EKG: no changes (Unchanged from previous February 23, 2024 save for heart rate has decreased from 103 to now 65)
Rate: normal
Rhythm: sinus
[place]: left axis deviation
Interval: normal interval
QRS Pattern: left vent hypertrophy
Ischemia: non-specific ST changes
*Bumper Machine Operator Interpretation
Rate: normal
Interpretation: normal
Rhythm: sinus
ED Attending Note
<GATO Martinez - Last Filed: 03/18/24 06:02>
-
Portions of this chart may have been created with voice recognition software.� Occasional wrong word or��sound alike� substitutions may have occurred due to the inherent limitations of voice recognition software.
<Agnes Chen DO - Last Filed: 03/18/24 02:54>
ED Attending Note
Patient seen and examined by attending physician: Yes
I performed the substantive portion of visit, reviewed & personally made and approve the management plan that is documented in note by myself or ALISON.: Yes
ED Attending Note:
This is a 74-year-old woman with history of multiple medical conditions including hypertension, insulin requiring diabetes, hyperlipidemia, chronic kidney disease, CAD, COVID related interstitial lung disease who underwent right iliofemoral
endarterectomy February 22, discharged to home February 28.
Overall has been feeling since discharge 2-1/2 weeks ago but over the past 3 days has noted some shortness of breath at nighttime. Tonight she states she was afraid to go to bed due to concern for recurrent shortness of breath. She has not had a
cough, no fever no chills, no leg pain or swelling. She denies feeling short of breath during the day and denies dyspnea on exertion.
She states her weight has been stable, in fact she may have lost a pound or 2.
GENERAL: 74-year-old woman appears her stated age, awake and alert, pleasant, appears in no acute distress. Respirations are easy and nonlabored.
EYE: anicteric
NECK: Supple, nontender, no meningismus, no significant adenopathy. No JVD.
ENT: posterior pharynx is clear, oral mucosa is moist. No rhinorrhea.
CARDIAC: Regular rate and rhythm. 2/6 holosystolic murmur.
LUNGS: no acute respiratory distress, scant rales at bases otherwise clear to auscultation.
ABDOMEN: Soft, nondistended, without focal tenderness, normoactive BS.
NEUROLOGICAL: Alert and oriented x3, no focal neuro deficits.
SKIN: Warm and dry, normal color, skin intact. No rash.
MUSCULOSKELETAL: No C/C/E. peripheral pulses are full and equal b/l. No palpable tenderness.
PSYCH: Normal and appropriate interaction.
Concern for CHF, exacerbation of interstitial lung disease, pneumonia, less likely ACS, PE.
Labs thus far stable and unchanged from previous.
Chronic kidney disease is unchanged.
Random glucose of 309 but patient admits to eating just prior to calling 911.
BNP of 900 is much lower than previous.
Will check troponin as well as chest x-ray.
It is reassuring that patient is asymptomatic during the day, no dyspnea on exertion and has not had any accompanying chest pain nor palpitations.
EKG shows normal sinus rhythm at 65, LVH with mild strain pattern. Overall similar to previous save her heart rate has decreased from 103 to now 65.
03/18/2024 0240 AM
Troponin is negative.
Chest x-ray stable and unchanged from previous.
Patient reassessed, resting comfortably lying supine. No dyspnea.
Will discharge to home with recommendations for prompt follow-up with PCP as well as her dye winch operator.
Return precautions discussed.
Discharge Plan
Departure
Patient Disposition: Home (Routine Discharge)
Date of Disposition: 03/18/24
Time of Disposition: 02:42
Patient with high blood pressure during this ER visit?: No
Condition: Good
Discharge Problem:
Nocturnal dyspnea
Instructions: *[facility] Heart Failure Instructions
Prescriptions:
No Action
clopidogrel 75 MG tablet
75 mg PO DAILY
ezetimibe 10 MG tablet
10 mg PO DAILY
sodium bicarbonate 650 MG tablet
650 mg PO BID
insulin aspart U-100 [Novolog FlexPen U-100 Insulin] 300 UNITS/3 ML insulin pen
2 - 8 units SC .SLIDING SCALE MEALS
pregabalin [Lyrica] 150 MG capsule
300 mg PO HS
insulin glargine [Basaglar KwikPen U-100 Insulin] 100 UNIT/ML insulin pen
38 unit SC HS
furosemide [Lasix] 40 mg Tablet
40 mg PO DAILY
atorvastatin 40 mg Tablet
40 mg PO HS
spironolactone 25 mg Tablet
25 mg PO DAILY
cholecalciferol (vitamin D3) [Vitamin D3] 50 mcg (2,000 unit) Capsule
50 mcg PO DAILY
coenzyme Q10 [Co Q-10] 400 mg Capsule
400 mg PO HS
febuxostat 40 mg Tablet
40 mg PO HS
hydralazine 25 mg Tablet
25 mg PO BID
tetracycline [Achromycin] 250 mg Capsule
250 mg PO 4XD
Referrals:
Joaquin Carlton MD [Family Provider] - Call in 1-3 days for appt
Interventions
Interventions:
*Risk Screen - Suicide Last Done: 03/17/24 22:29
*General Assessment Last Done: 03/17/24 23:03
*Neglect/Abuse Screening Last Done: 03/17/24 22:29
ED- Fall Risk Assessment Last Done: 03/17/24 23:03
*ED COVID-19 Vaccine History Last Done: 03/17/24 23:03
*Nursing Disposition Last Done: 03/18/24 02:51
ED- Cardiac Assessment Last Done: 03/17/24 23:09
ED- Pulmonary Assessment Last Done: 03/17/24 23:09
Discharge Date and Time
Discharge Date/Time: 03/18/24 03:16
Print Language: [place]
[2024-03-18 01:22] LABS: Troponin I < 0.012 ng/ml
[2024-03-18 01:25] VITALS: BP 147/61
[2024-03-18 02:00] VITALS: BP 120/49
== END 2024-03-18 03:16 | disposition home or self-care (01) ==
LOC: EMR 22:27
PROVIDERS: EMERGENCY PHYSICIAN Emergency Medicine; FAMILY PHYSICIAN Internal Medicine
DX: R06.09 Other forms of dyspnea (principal); E11.22 Type 2 diabetes mellitus with diabetic chronic kidney disease; I12.9 Hypertensive chronic kidney disease with stage 1 through stage 4 chronic kidney disease, or unspecified chronic kidney disease; N18.9 Chronic kidney disease, unspecified; E11.51 Type 2 diabetes mellitus with diabetic peripheral angiopathy without gangrene; E78.00 Pure hypercholesterolemia, unspecified; I25.10 Atherosclerotic heart disease of native coronary artery without angina pectoris; K21.9 Gastro-esophageal reflux disease without esophagitis; Z82.49 Family history of ischemic heart disease and other diseases of the circulatory system; Z83.3 Family history of diabetes mellitus; Z86.16 Personal history of COVID-19
CPT/HCPCS: 99283; 71046; 80053; 83880; 84484; 85025; 93005

== ENCOUNTER → 2024-03-24 08:29 | Outpatient (REF) | payer MEDICARE, OTHER, SELFPAY ==
[2024-03-24 10:17] LABS: Glycohemoglobin (HgbA1c) 9.9 % (4.0-5.6)
[2024-03-24 11:38] LABS: ALT (SGPT) 18 U/L (0-35); AST (SGOT) 22 U/L (14-36); Albumin 3.9 g/dl (3.5-5.0); Alkaline Phosphatase 102 U/L (38-126); Blood Urea Nitrogen 41 mg/dl (7-17); Direct Bilirubin 0.3 mg/dl (0.0-0.4); Glucose 103 mg/dl (70-99); HDL Cholesterol 37 mg/dl; LDL Cholesterol, Calculated 49 mg/dl; Total Bilirubin 0.4 mg/dl (0.2-1.3); Total Cholesterol 116 mg/dl (50-199); Triglyceride 150 mg/dl (10-149); Very Low Density Lipoprotein 30 mg/dl (0-30)
== END ==
LOC: REG 08:29
PROVIDERS: ATTENDING PHYSICIAN Internal Medicine
DX: E11.59 Type 2 diabetes mellitus with other circulatory complications (principal); E78.5 Hyperlipidemia, unspecified; N18.4 Chronic kidney disease, stage 4 (severe)
CPT/HCPCS: 36415; 80061; 80076; 82565; 82947; 83036; 84520

== ENCOUNTER → 2024-06-11 09:47 | Outpatient (REF) | payer MEDICARE, OTHER, SELFPAY ==
[2024-06-11 12:18] LABS: ALT (SGPT) 13 U/L (0-35); AST (SGOT) 25 U/L (14-36); Albumin 4.6 g/dl (3.5-5.0); Alkaline Phosphatase 120 U/L (38-126); Blood Urea Nitrogen 45 mg/dl (7-17); Calcium 9.7 mg/dl (8.4-10.2); Carbon Dioxide 27 mmol/L (22-30); Chloride 99 mmol/L (98-107); Direct Bilirubin 0.3 mg/dl (0.0-0.4); Glucose 174 mg/dl (70-99); HDL Cholesterol 38 mg/dl; LDL Cholesterol, Calculated 60 mg/dl; Potassium 4.8 mmol/L (3.5-5.1); Sodium 139 mmol/L (135-145); Total Bilirubin 0.5 mg/dl (0.2-1.3); Total Cholesterol 129 mg/dl (50-199); Triglyceride 158 mg/dl (10-149); Very Low Density Lipoprotein 31 mg/dl (0-30); eGFR 21.76
[2024-06-11 12:28] LABS: NT-proBNP 2150 pg/ml
[2024-06-11 12:33] LABS: Glycohemoglobin (HgbA1c) 9.6 % (4.0-5.6)
== END ==
LOC: RAD 09:47
PROVIDERS: ATTENDING PHYSICIAN Registered Nurse; FAMILY PHYSICIAN Surgery Vascular Surgery
DX: I73.9 Peripheral vascular disease, unspecified (principal); E11.21 Type 2 diabetes mellitus with diabetic nephropathy
CPT/HCPCS: 36415; 80053; 80061; 82248; 83036; 83880; 93922; 93925; 93978

== ENCOUNTER → 2024-08-02 12:27 | Outpatient (REF) | payer MEDICARE, OTHER, SELFPAY | LOC: WOUND 12:27 | PROVIDERS: ATTENDING PHYSICIAN Surgery; FAMILY PHYSICIAN Internal Medicine | DX: I70.244 Atherosclerosis of native arteries of left leg with ulceration of heel and midfoot (principal); L97.422 Non-pressure chronic ulcer of left heel and midfoot with fat layer exposed; I70.243 Atherosclerosis of native arteries of left leg with ulceration of ankle; L97.322 Non-pressure chronic ulcer of left ankle with fat layer exposed; N18.4 Chronic kidney disease, stage 4 (severe); E11.65 Type 2 diabetes mellitus with hyperglycemia; E11.22 Type 2 diabetes mellitus with diabetic chronic kidney disease; Z79.4 Long term (current) use of insulin; Z91.199 Patient's noncompliance with other medical treatment and regimen due to unspecified reason | CPT/HCPCS: 99203 ==

== ENCOUNTER 2024-08-09 08:22 | Day surgery (SDC) | payer MEDICARE, OTHER, SELFPAY ==
--- NOTE | 2024-08-08 08:38 | PTCARENOTE ---
Abn ECG, Dr. Quevedo notified, no additional interventions required.
[2024-08-09] VITALS (20 sets, daily range): BP systolic 106–204; BP diastolic 42–92; BMI 26.5
[2024-08-09 08:56] LABS: Glucose - Point of Care 132 mg/dl (70-99)
[2024-08-09 09:03] LABS: Blood Urea Nitrogen 33 mg/dl (7-17); Calcium 9.6 mg/dl (8.4-10.2); Carbon Dioxide 28 mmol/L (22-30); Chloride 99 mmol/L (98-107); Glucose 157 mg/dl (70-99); Sodium 139 mmol/L (135-145); eGFR 24.27
[2024-08-09 09:05] LABS: Hemoglobin 13.5 g/dL (12.0-16.0); INR 1.04; Mean Corp Hgb Conc. 31.4 g/dL (33.0-37.0); Mean Corpuscular Hgb 27.6 pg (27.0-31.0); Mean Corpuscular Volume 87.9 fL (81.0-99.0); Mean Platelet Volume 12.7 fL (7.4-10.4); PT 14.1 Sec (11.4-14.6); Platelet Count 230 10^3/uL (130-400); Red Blood Cell Count 4.89 10^6/uL (4.20-5.40); Red Cell Dist. Width 17.1 % (11.5-14.5); White Blood Cell Count 12.7 10^3/uL (4.8-10.8)
[2024-08-09 09:06] LABS: APTT 30.2 Sec (23.4-35.0)
--- NOTE | 2024-08-09 10:00 | W.SUR.PREOP ---
Pre-Operative Surgical Note
-
I have examined this patient prior to the performance of the scheduled procedure.
The patient's condition is unchanged from the time of the current History and
Physical and the patient is able to undergo the scheduled procedure.
--- NOTE | 2024-08-09 12:35 | W.SUR.POST ---
Surgical Immediate Post Op
Note
Pre Op Diagnosis: Gangrene
Post Op Diagnosis: Same
Procedure Performed: Left lower extremity arteriogram, left proximal SFA drug-coated balloon angioplasty, left SFA angioplasty and stent, popliteal drug-coated balloon angioplasty, AT balloon angioplasty
Primary Surgeon: Favio
Anesthesia: Local and sedation
Estimated Blood Loss:
Fluids: See anesthesia flowsheet
Drains/Shunts: None
Specimens/Cultures: None
Doppler/Duplex/Angio (Y/N): Y
Complications: None
Operative Findings: Palpable DP upon completion
[2024-08-09 13:34] LABS: Glucose - Point of Care 109 mg/dl (70-99)
--- NOTE | 2024-08-09 13:41 | OR.RPT ---
Operative Report
Operative Report
PROCEDURE DATE: 08/09/2024
Preoperative diagnosis: Chronic limb threatening ischemia left lower extremity.
Postoperative diagnosis: Same
Procedure:
1. Duplex assisted right common femoral artery cannulation.
2. Aortogram and pelvic angiogram.
3. Left lower extremity arteriogram with third order vessel catheterization of left anterior tibial artery via right common femoral artery puncture.
4. Balloon angioplasty of chronically occluded left superficial femoral artery with a 4 mm angioplasty balloon.
5. Balloon angioplasty and stent placement with VeriWave Zilver PTX drug-eluting overlapping bare-metal stents left above-knee popliteal artery and superficial femoral artery with 6 mm x 14 cm stents x 2.
6. Balloon angioplasty of proximal left superficial femoral artery with 5 mm Bard Lutonix drug-coated balloon.
7. Balloon angioplasty of left behind the knee popliteal artery with 4 mm Bard Lutonix drug-coated balloon.
8. Balloon angioplasty of the left anterior tibial artery with 2.5 mm angioplasty balloon.
9. Right femoral angiogram.
10. Supervision and interpretation.
Surgeon: Favio
Inspector Set Up And Lay Out: None
Complications: None
Anesthesia: Local, sedation
Fluoroscopy:
14.5 min
45 mGy
8.24 Gy.cm2
Indications for procedure:
Patient with history of known peripheral arterial disease status post right femoral endarterectomy prior. Had recent fall and hip fracture. During her recovery time had compression wrap. She ended up developing left foot and ankle wounds which
became dry, areas of dry gangrene. Known peripheral arterial disease and confirmed on noninvasive studies. Therefore brought for angiography. Risk/benefits/alternatives all fully discussed. Patient understood all wished proceed.
Description of procedure:
Patient was identified, brought to the operating room. Placed on the table in the supine position. After the adequate administration of anesthesia, the patient was prepped and draped in the standard surgical fashion. A standard preoperative
timeout was undertaken and everybody was in agreement with the plan.
The right common femoral artery was accessed with a micropuncture kit under direct duplex ultrasound guidance. A 5 Syrian sheath was then advanced over a 0.035 inch wire, and a panchal's hook catheter was advanced into the abdominal aorta. (Note
due to the known scarred groin from prior femoral endarterectomy, I did utilize a stiffer Amplatz wire and initially ran the dilator of the 5 Syrian sheath alone in order to pay a track). Aortogram and pelvic angiogram was obtained. Findings as
follows:
Infrarenal aorta: Patent with mild mid infrarenal aortic stenosis.
Right common iliac artery: Stent widely patent. No significant in-stent restenosis.
Right external iliac artery: Patent with no significant stenosis.
Left common iliac artery: Patent with no significant stenosis.
Left external iliac artery: Patent with no significant stenosis.
Using a floppy angled hydrophilic wire, the left common femoral artery was cannulated and the catheter was advanced. Left lower extremity arteriogram was obtained. Findings as follows:
Common femoral artery: Patent with moderate plaque in the mid portion but no severe stenosis. (Although slightly difficult to say due to a paucity of the plaque). Distal common femoral artery with moderate plaque as well may have resulted in mild
to moderate stenosis although difficult to quantify in two-dimensional angiography.
Profunda femoris artery: Patent with likely moderate stenosis at the origin.
Superficial femoral artery: Patent proximally with heavy plaque over the course of about the first 2 cm resulting in moderate at least 50% stenosis diffusely there. The artery then occluded and heavy calcified plaque could be seen on fluoroscopy.
There was reconstituted flow seen in the popliteal artery.
Popliteal artery: Reconstituted flow in the above-knee popliteal artery. Behind the knee with 2 tandem areas of at least moderate stenoses with opacifying plaque.
Anterior tibial artery: Patent with severe stenosis about 1.5 cm beyond the origin. Beyond here some luminal irregularities but generally patent and gave rise to the dorsalis pedis on the foot which gave rise to some collateralization towards the
toes but relatively weak filling overall. However this was the dominant runoff vessel in the foot. No other named vessels visualized in the foot.
Tibial peroneal trunk: Patent with luminal irregularities, may be mild or moderate stenosis but difficult to say for sure.
Peroneal artery:Patent to the level of the ankle but somewhat diminutive throughout its course. Very poor collateralization at the ankle. None of the collaterals even reach the foot.
Posterior tibial artery: Patent very proximally but very diseased and diminutive and then occluded. No filling beyond the mid calf noted.
At this point I selectively cannulated the proximal superficial femoral artery using a flopping of hydrophilic wire and then exchanged for a Storq wire and an up and over 6 Syrian sheath. The patient was given 5000 units of intravenous heparin. At
this point under roadmap assisted guidance I was able to traverse the entirety of the occlusion (long segment) of the SFA. It appeared that I stayed mostly intraluminally rather than subintimally. With some difficulty I was able to pass a CXI
catheter through. Once in the popliteal artery angiogram confirmed I was in the true lumen. I therefore then exchanged for a Storq wire and then performed balloon angioplasty of the entire occluded segment of SFA as well as the proximal SFA back
to the origin with a 4 mm angioplasty balloon. Completion angiogram now demonstrated much improved flow channel. But given the bulk of the plaque and stenosis prior I felt that I wish to stent to these areas. The dilation had been performed as a
predilation to allow stent placement. I now used a 6 mm x 140 mm Zilver PTX (Judys Book) overlapping stents x 2 to stent from the above-knee popliteal artery to the proximal SFA. These were postangioplasty with a 5 mm balloon. Now under
magnified fluoroscopy I marked the origin of the SFA on the screen and performed balloon angioplasty of that segment with a 5 mm x 40 mm drug-coated Bard Lutonix balloon with prolonged 2-minute inflation. I elected to do this and not try to stent
to the origin as I felt that that may encroach on the profunda and if the patient should need a femoral endarterectomy in the future that may affect that as well. Completion angiogram now demonstrated excellent result. There was still some mild
luminal irregularity in the proximal SFA but no flow-limiting stenosis. The entirety of the stented SFA and popliteal artery above the knee appeared widely patent. The behind the knee popliteal segment appeared to be more stenotic than initially
appreciated. I therefore then used a Bard Lutonix drug-coated 4 mm x 60 mm angioplasty balloon with prolonged 2-minute inflation. Completion angiogram now demonstrated an excellent result with no residual stenosis throughout the SFA and popliteal
artery and brisk flow through those segments. I now under roadmap assisted guidance used a flopping of hydrophilic wire and a quick cross catheter to navigate through the anterior tibial artery severe stenosis. I then was able to pass the quick
cross catheter and then exchanged for a TRASH HAULER wire. I then performed balloon angioplasty of the stenotic anterior tibial segment with a 2.5 mm balloon. Prolonged inflation was undertaken. Completion angiogram now demonstrated excellent result with
no residual stenosis. Brisk flow into the anterior tibial runoff. Distal runoff preserved. At this point is very satisfied. I withdrew my sheath to the right common iliac artery distally. I then performed completion angiogram that demonstrated
patency of the right external iliac artery, good puncture in the right common femoral artery and patent patched femoral endarterectomy site. At this point is very satisfied. Wires and catheters were withdrawn. The sheath was withdrawn. Manual
pressure was applied to the puncture site. Additional protamine was given to reverse the heparin as well. Hemostasis was fully achieved.
The patient tolerated procedure well.
[2024-08-09] MEDS: MORPHINE SULFATE 1 MG IV ×2 (14:11→14:44)
[2024-08-09] MEDS: LOW STRENGTH ASPIRIN 81 MG PO (14:21)
[2024-08-09] MEDS: APRESOLINE 5 MG IV ×2 (14:30→14:45)
[2024-08-09 16:04] LABS: Glucose - Point of Care 109 mg/dl (70-99)
[2024-08-09] MEDS: NSS 1000 IV (16:15)
== END 2024-08-09 19:05 | disposition home or self-care (01) ==
LOC: CATH 08:22
PROVIDERS: ATTENDING PHYSICIAN Surgery Vascular Surgery; OTHER PHYSICIAN Internal Medicine Cardiovascular Disease; PRIMARYCARE PHYSICIAN Internal Medicine
DX: E11.52 Type 2 diabetes mellitus with diabetic peripheral angiopathy with gangrene (principal); I70.262 Atherosclerosis of native arteries of extremities with gangrene, left leg; Z79.4 Long term (current) use of insulin; Z79.02 Long term (current) use of antithrombotics/antiplatelets; Z79.899 Other long term (current) drug therapy; I12.9 Hypertensive chronic kidney disease with stage 1 through stage 4 chronic kidney disease, or unspecified chronic kidney disease; E11.22 Type 2 diabetes mellitus with diabetic chronic kidney disease; N18.4 Chronic kidney disease, stage 4 (severe); I25.10 Atherosclerotic heart disease of native coronary artery without angina pectoris; Z88.2 Allergy status to sulfonamides
CPT/HCPCS: 37226; 37228; 75625; 75716; 80048; 82962; 85027; 85610; 85730; 86850; 86900; 86901; C1725; C1769; C1874; C1887; C1894; C2623; Q9967

== ENCOUNTER → 2024-08-16 13:11 | Outpatient (REF) | payer MEDICARE, OTHER, SELFPAY | LOC: WOUND 13:11 | PROVIDERS: ATTENDING PHYSICIAN Surgery; FAMILY PHYSICIAN Internal Medicine | DX: I70.244 Atherosclerosis of native arteries of left leg with ulceration of heel and midfoot (principal); L97.422 Non-pressure chronic ulcer of left heel and midfoot with fat layer exposed; I70.243 Atherosclerosis of native arteries of left leg with ulceration of ankle; L97.322 Non-pressure chronic ulcer of left ankle with fat layer exposed; I73.9 Peripheral vascular disease, unspecified; N18.4 Chronic kidney disease, stage 4 (severe); E11.65 Type 2 diabetes mellitus with hyperglycemia; E11.22 Type 2 diabetes mellitus with diabetic chronic kidney disease; Z79.4 Long term (current) use of insulin; Z91.199 Patient's noncompliance with other medical treatment and regimen due to unspecified reason | CPT/HCPCS: 99213 ==

== ENCOUNTER → 2024-09-18 14:15 | Outpatient (REF) | payer MEDICARE, OTHER, SELFPAY | LOC: WOUND 14:15 | PROVIDERS: ATTENDING PHYSICIAN Surgery | DX: I70.244 Atherosclerosis of native arteries of left leg with ulceration of heel and midfoot (principal); L97.422 Non-pressure chronic ulcer of left heel and midfoot with fat layer exposed; I70.243 Atherosclerosis of native arteries of left leg with ulceration of ankle; L97.322 Non-pressure chronic ulcer of left ankle with fat layer exposed; E11.65 Type 2 diabetes mellitus with hyperglycemia; Z79.4 Long term (current) use of insulin; Z91.199 Patient's noncompliance with other medical treatment and regimen due to unspecified reason; N18.4 Chronic kidney disease, stage 4 (severe); I25.10 Atherosclerotic heart disease of native coronary artery without angina pectoris; E11.22 Type 2 diabetes mellitus with diabetic chronic kidney disease | CPT/HCPCS: 11042 ==

== ENCOUNTER → 2024-09-25 13:36 | Outpatient (REF) | payer MEDICARE, OTHER, SELFPAY | LOC: WOUND 13:36 | PROVIDERS: ATTENDING PHYSICIAN Surgery; FAMILY PHYSICIAN Internal Medicine | DX: I70.244 Atherosclerosis of native arteries of left leg with ulceration of heel and midfoot (principal); L97.422 Non-pressure chronic ulcer of left heel and midfoot with fat layer exposed; I70.243 Atherosclerosis of native arteries of left leg with ulceration of ankle; L97.322 Non-pressure chronic ulcer of left ankle with fat layer exposed; I73.9 Peripheral vascular disease, unspecified; E11.65 Type 2 diabetes mellitus with hyperglycemia; N18.4 Chronic kidney disease, stage 4 (severe); E11.22 Type 2 diabetes mellitus with diabetic chronic kidney disease; I25.10 Atherosclerotic heart disease of native coronary artery without angina pectoris; Z91.199 Patient's noncompliance with other medical treatment and regimen due to unspecified reason; Z79.4 Long term (current) use of insulin | CPT/HCPCS: 11042; 97597 ==

== ENCOUNTER → 2024-10-02 12:50 | Outpatient (REF) | payer MEDICARE, OTHER, SELFPAY | LOC: RAD 12:50 | PROVIDERS: ATTENDING PHYSICIAN Surgery Vascular Surgery; FAMILY PHYSICIAN Internal Medicine | DX: I73.9 Peripheral vascular disease, unspecified (principal) | CPT/HCPCS: 93922; 93925 ==

== ENCOUNTER → 2024-10-16 13:55 | Outpatient (REF) | payer MEDICARE, OTHER, SELFPAY | LOC: WOUND 13:55 | PROVIDERS: ATTENDING PHYSICIAN Surgery; FAMILY PHYSICIAN Internal Medicine | DX: I70.244 Atherosclerosis of native arteries of left leg with ulceration of heel and midfoot (principal); L97.422 Non-pressure chronic ulcer of left heel and midfoot with fat layer exposed; I70.243 Atherosclerosis of native arteries of left leg with ulceration of ankle; L97.322 Non-pressure chronic ulcer of left ankle with fat layer exposed; E11.65 Type 2 diabetes mellitus with hyperglycemia; Z79.4 Long term (current) use of insulin; N18.4 Chronic kidney disease, stage 4 (severe); I25.10 Atherosclerotic heart disease of native coronary artery without angina pectoris; E11.22 Type 2 diabetes mellitus with diabetic chronic kidney disease; Z91.199 Patient's noncompliance with other medical treatment and regimen due to unspecified reason | CPT/HCPCS: 11042 ==

== ENCOUNTER → 2024-10-23 14:35 | Outpatient (REF) | payer MEDICARE, OTHER, SELFPAY | LOC: WOUND 14:35 | PROVIDERS: ATTENDING PHYSICIAN Surgery; FAMILY PHYSICIAN Internal Medicine | DX: I70.244 Atherosclerosis of native arteries of left leg with ulceration of heel and midfoot (principal); I70.243 Atherosclerosis of native arteries of left leg with ulceration of ankle; L97.322 Non-pressure chronic ulcer of left ankle with fat layer exposed; I73.9 Peripheral vascular disease, unspecified; E11.65 Type 2 diabetes mellitus with hyperglycemia; N18.4 Chronic kidney disease, stage 4 (severe); I25.10 Atherosclerotic heart disease of native coronary artery without angina pectoris; E11.22 Type 2 diabetes mellitus with diabetic chronic kidney disease; Z79.4 Long term (current) use of insulin; Z91.199 Patient's noncompliance with other medical treatment and regimen due to unspecified reason | CPT/HCPCS: 11042 ==

== ENCOUNTER 2024-10-29 02:11 | Inpatient (IN) | payer MEDICARE, OTHER, SELFPAY ==
[2024-10-28 22:01] VITALS: BMI 26.9
[2024-10-28 22:08] VITALS: BP 168/91
[2024-10-28 22:09] VITALS: BP 168/91
--- NOTE | 2024-10-28 22:24 | ED.GENMED ---
History of Present Illness
General
Chief Complaint: Breathing Problem
Source: patient
Exam Limitations: none
Time Seen by Provider: 10/28/24 22:21
Nursing documentation reviewed up to this point in time: agreed with
History of Present Illness
History of Present Illness:
74-year-old female with extensive medical history including prior TIA, interstitial lung disease, hypertension, hyperlipidemia, CAD status post stents, CKD, insulin-dependent diabetes who presents to the emergency department with her son via EMS for
evaluation of shortness of breath. Patient reports sudden onset of symptoms after dinner tonight and have been constant since that time. She describes severe shortness of breath. Denies any chest pain. She says she has a chronic cough no acute
change. She has had swelling in her left leg but she says this has been a chronic issue since she had hip fracture and surgery in the left hip. Per EMS report on their arrival she was hypoxic with pulse ox in the 60s. She was severely
hypertensive; she had rales on lung auscultation and so she was started on CPAP and was given nitroglycerin for blood pressure control.
Past History
Past History
ED Past Medical History: CAD, GERD, HTN, Hypercholesterolemia, IDDM and Other (COVID-19, anemia, peripheral vascular disease, chronic kidney disease, celiac artery dissection, anemia, HSP)
ED Past Surgical History: Cardiac
Social History
Tobacco: Non-smoker
Alcohol: Occasional
Drug: None
Personal:
Living: with family
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
Family History
Family History: Other (Father with CAD, mother with diabetes)
Review of Systems
Review of Systems
All Other Systems: ROS reviewed and negative except as documented in HPI and ROS
Constitutional: Denies fever
Respiratory: Reports cough and trouble breathing
Cardiac: Denies chest pain or palpitations
ABD/GI: Denies abdominal pain, nausea or vomiting
Musculoskeletal: Reports edema
Neurological: Denies dizzy
Phy Exam
Physical Exam
Physical Exam:
General: Awake, alert, severe respiratory distress
Head: Normocephalic, atraumatic
Eyes: Conjunctiva normal
Throat: Airway intact, handling secretions
Neck: Trachea midline, no JVD
Lungs: Patient has diffuse bilateral rales, tachypnea, severe hypoxia
Heart: Tachycardia with regular rhythm, faint systolic murmur
Neuro: No gross deficits
Extremities: +1 edema in the left leg; good pulses in the legs bilaterally
Scores
Heart Failure Risk
Heart Failure Risk Score: Not Applicable
Heart Score for Chest Pain Patients
STEMI patient?: Not applicable
Withdrawal Assessment of Alcohol
Withdrawal Assessment Completed?: Not applicable
Course
Orders/Labs/Results
Orders:
Orders
10/28/24 22:03
EKG [Electrocardiogram (*1)] Urgent
Reason for Study: Shortness of Breath
EKG- Treatment ONCE
10/28/24 22:05
Electrocardiogram (*1) Urgent
Reason for Study: Other
Other Reason for Exam: Respiratory Distress
EKG- Treatment ONCE
10/28/24 22:06
CR Chest Portable - 1 View Urgent
Comment:
Reason For Exam: respiratory distress
Reason Study Needs to be Portable: Patient Unstable
10/28/24 22:22
Complete Blood Count/With Diff Urgent
Comprehensive Metabolic Panel Urgent
NT-proBNP Urgent
Prothrombin Time Urgent
Troponin I Urgent
10/28/24 23:24
Nitroglycerin 100 mg/250 ml [Nitroglycerin Premix] 100 mg in 250 ml IV NOW
Initial dose in mcg/min, then titrate:: 5
Titrate to keep:: SBP < 160 mmHg
Titrate by mcg/min:: 5 mcg/min, may increase by 10 mcg/min if dose > 20 mcg/min
Frequency of titrations (minutes):: every 3-5 minutes
Maximum dose in mcg/min:: 200
Begin to taper infusion when:: Remained at goal for 2hrs
Taper by mcg/min:: 5 mcg/min
Frequency of taper (minutes) if patient maintains goal:: 30
Taper to off?: Yes
If infusion off & no longer maintaining goal:: Contact Provider
10/29/24 00:00
US Periph Venous LOWER Ext LT Urgent
Reason For Exam: LLE swelling
10/29/24 00:02
CT Chest PE Study Urgent
Reason For Exam: sudden SOB, hypoxia, recent hip surgery
10/29/24 00:20
Bedside Glucose- Treatment ONCE
Furosemide [Lasix] 40 mg IV NOW STA
10/29/24 00:21
Insulin Aspart [NOVOLOG vial] 5 units SC NOW STA
Abnormal Lab Results
10/28/24 10/29/24
22:22 00:24
RBC 3.84 L 10^6/uL
(4.20-5.40)
Hgb 10.7 L g/dL
(12.0-16.0)
Hct 34.1 L %
(37.0-47.0)
MCHC 31.4 L g/dL
(33.0-37.0)
RDW 15.9 H %
(11.5-14.5)
MPV 12.8 H fL
(7.4-10.4)
BUN 47 H mg/dl
(7-17)
Creatinine 2.3 H mg/dL
(0.6-1.0)
Glucose 486 H* mg/dl
(70-99)
Calcium 8.3 L mg/dl
(8.4-10.2)
AST 64 H U/L
(14-36)
ALT 42 H U/L
(0-35)
Alkaline Phosphatase 144 H U/L
(38-126)
Troponin I 0.263 H* ng/ml
Total Protein 5.9 L g/dl
(6.3-8.2)
POC Glucose 456 H* mg/dl
(70-99)
10/28/24 22:22
10/28/24 22:22
Vital Signs
Initial and Last Documented VS:
Initial Vital Signs
Pulse Ox
93
10/28/24 22:04
Last Documented Vital Signs
Temp Pulse Resp BP Pulse Ox
36.6 C 101 23 151/88 86
10/28/24 22:09 10/29/24 00:55 10/29/24 00:55 10/29/24 00:55 10/29/24 00:55
MDM/Problems Addressed
Differential Diagnosis Includes:
Pulmonary embolism, CHF, interstitial lung disease flare, bronchitis, pneumonia, anginal equivalent
MDM/Problems Addressed:
74-year-old female presents for sudden onset shortness of breath and severe hypoxia. She arrived hypoxic was placed on EMS CPAP; she was transitioned to mid flow nasal cannula and has adequate oxygen saturations. Respiratory rate improved with
improved oxygenation. She is afebrile, hypertensive to 168/91. She is tachycardic with heart rate in the low 100s. Her physical exam is as above. Large-bore IV placed labs sent off including a CBC and a CMP, coags, proBNP, troponin. EKG shows
sinus tachycardia with nonspecific ST changes. Stat chest x-ray reviewed by me does show bilateral increased interstitial markings likely edema, somewhat less likely multifocal pneumonia. Somewhat complicated by the fact that she has interstitial
lung disease. Given the acuity of onset and degree of hypoxia as well as swelling in the left lower leg after recent surgery I think she should have a CT of her chest despite her chronic kidney disease�I think with her acute respiratory failure the
risk of foregoing study outweighs the risk for kidney injury. Will check ultrasound of the left lower extremity as well. Will monitor very closely admit pending initial workup and resuscitation.
Labs reviewed. CBC shows stable anemia, CMP shows stable chronic kidney disease. She is markedly hyperglycemic to 46�known insulin-dependent diabetes. Reports compliance. She has no acidosis to suggest DKA. Will treat with subcutaneous insulin.
Troponin is elevated to 0.263, proBNP elevated this at 8600. At this point suspect likely CHF�likely triggered by severe hypertension. Blood pressure remains elevated, started on nitroglycerin infusion. Given Lasix. She is having increased
tachypnea and work of breathing�transition to BiPAP. CT report is pending.
CT report reviewed shows no PE but findings consistent with CHF. Patient stabilized on BiPAP, blood pressure improving with nitroglycerin infusion. Discussed with hospitalist for admission.
Chronic conditions affecting care:
Interstitial lung disease, CAD
Acute Exacerbation and/or Progression of Chronic Illness:
Acutely hypertensive
*Radiology
Radiology exam reviewed: preliminary read by ED provider and radiology read reviewed
*Pulse Oximetry
Patient hypoxic: yes
*EKG
Interpreted by ED Provider?: Yes
Heart Rate: 99
Rate: normal
Rhythm: sinus
[place]: normal axis
Interval: normal interval
QRS Pattern: normal QRS
Ischemia: non-specific ST changes
*Critical Care Note
Total Time (30-74mins, 75-104mins- exclusive of procedures): 37
comment:
Critical care statement: A total of 37 minutes of critical care time was provided for this patient. This includes management of unstable vital signs, evaluation of the patient at bedside, frequent reassessment, discussion with
consultants/hospitalist, and review of pertinent medical records. This time was separate from time utilized to perform any aforementioned documented procedures
Data Reviewed
Source: patient, records, family (Son) and ambulance crew
Patient Management
Discussion with other providers: Hospitalist (Discussed with hospitalist)
Escalation/DeEscalation of care consider admission/obs:
Admission indicated
ED Attending Note
-
Portions of this chart may have been created with voice recognition software.� Occasional wrong word or��sound alike� substitutions may have occurred due to the inherent limitations of voice recognition software.
Discharge Plan
Departure
Patient Disposition: Admit
Date of Disposition: 10/29/24
Time of Disposition: 00:59
Admit to doctor: Roman
Presentation/result/management discussed w/ accepting MD/DO: Hospitalist
Discharge Problem:
Acute hypoxic respiratory failure, CHF exacerbation, Hypertension
Prescriptions:
No Action
Cefalexin
500 mg PO Q6H
insulin asp prt-insulin aspart [Novolog Mix 70-30FlexPen U-100] 100 unit/mL (70-30) Insulin Pen
2 - 8 unit SC TID
insulin glargine [Lantus U-100 Insulin] 100 unit/mL solution
20 unit SC HS
furosemide [Lasix] 40 mg Tablet
40 mg PO DAILY PRN (Reason: ankle swelling)
clopidogrel [Plavix] 75 mg Tablet
75 mg PO DAILY
aspirin 81 mg Tablet,Chewable
81 mg PO BID
atorvastatin 80 mg Tablet
80 mg PO QPM 30 Days Qty: 30 0RF
docusate sodium 100 mg Capsule
100 mg PO BID 30 Days Qty: 60 0RF
cyanocobalamin (vitamin B-12) 1,000 mcg Tablet
1,000 mcg PO DAILY 30 Days Qty: 30 0RF
tramadol 50 mg Tablet
50 mg PO DAILY@0600,1200 5 Days Qty: 10 0RF
acetaminophen [Tylenol Extra Strength] 500 mg Tablet
1,000 mg PO TID 15 Days Qty: 90 0RF
tramadol 50 mg Tablet
50 mg PO Q6H PRN (Reason: continuaton of care- Mod hip pain) 5 Days Qty: 20 0RF
ezetimibe 10 mg Tablet
10 mg PO DAILY Qty: 0 0RF
pregabalin 150 mg Capsule
300 mg PO HS Qty: 0 0RF
febuxostat 40 mg Tablet
40 mg PO HS Qty: 0 0RF
Interventions
Interventions:
*Risk Screen - Suicide Last Done: 10/28/24 22:09
*General Assessment Last Done: 10/28/24 22:09
*Neglect/Abuse Screening Last Done: 10/28/24 22:09
*ED- Fall Risk Assessment Last Done: 10/28/24 22:09
*ED COVID-19 Vaccine History Last Done: 10/28/24 22:09
ED- Cardiac Assessment Last Done: 10/28/24 22:15
ED- Pulmonary Assessment Last Done: 10/28/24 22:15
Discharge Date and Time
Print Language: OCCITAN
[2024-10-28 22:36] LABS: % Basophils 0.7 % (0-2); % Eosinophils 4.9 % (0-6); % Immature Granulocytes 0.1 % (0-0.5); % Lymphocytes 25.1 % (20.5-51.1); % Monocytes 6.1 % (1.7-9.3); % Neutrophils 63.1 % (42.2-75.2); Absolute Basophils 0.1 10^3/uL (0-0.2); Absolute Eosinophils 0.5 10^3/uL (0-0.7); Absolute Lymphocytes 2.3 10^3/uL (1.2-3.4); Absolute Monocytes 0.6 10^3/uL (0.1-0.6); Absolute Neutrophils 5.8 10^3/uL (1.4-6.5); Hematocrit 34.1 % (37.0-47.0); Hemoglobin 10.7 g/dL (12.0-16.0); Mean Corp Hgb Conc. 31.4 g/dL (33.0-37.0); Mean Corpuscular Hgb 27.9 pg (27.0-31.0); Mean Corpuscular Volume 88.8 fL (81.0-99.0); Mean Platelet Volume 12.8 fL (7.4-10.4); Nucleated Red Blood Cells % 0 %; Platelet Count 183 10^3/uL (130-400); Red Blood Cell Count 3.84 10^6/uL (4.20-5.40); Red Cell Dist. Width 15.9 % (11.5-14.5); White Blood Cell Count 9.2 10^3/uL (4.8-10.8)
[2024-10-28 22:45] LABS: INR 1.05
[2024-10-28 22:53] LABS: ALT (SGPT) 42 U/L (0-35); AST (SGOT) 64 U/L (14-36); Alkaline Phosphatase 144 U/L (38-126); Blood Urea Nitrogen 47 mg/dl (7-17); Calcium 8.3 mg/dl (8.4-10.2); Carbon Dioxide 25 mmol/L (22-30); Chloride 105 mmol/L (98-107); Estimated Creatinine Clearance 18 ml/min; Glucose 486 mg/dl (70-99); Potassium 4.7 mmol/L (3.5-5.1); Sodium 140 mmol/L (135-145); Total Bilirubin 0.5 mg/dl (0.2-1.3); Total Protein 5.9 g/dl (6.3-8.2); eGFR 21.76
[2024-10-28 23:00] VITALS: BP 175/78
[2024-10-28 23:02] LABS: NT-proBNP 8600 pg/ml; Troponin I 0.263 ng/ml
[2024-10-28] MEDS: NITROGLYCERIN PREMIX 250 IV (23:35)
[2024-10-28 23:39] VITALS: BP 195/93
[2024-10-28 23:45] VITALS: BP 198/96
[2024-10-29] VITALS (60 sets, daily range): BP systolic 61–212; BP diastolic 33–135; PULSE 2–86
[2024-10-29 00:26] LABS: Glucose - Point of Care 456 mg/dl (70-99)
[2024-10-29] MEDS: LASIX 40 MG IV ×3 (00:30→22:38)
[2024-10-29] MEDS: NOVOLOG vial 5 UNITS SC (00:30)
[2024-10-29 01:23] LABS: Glucose - Point of Care 405 mg/dl (70-99)
--- NOTE | 2024-10-29 01:58 | HPS.HSE ---
Family Physician
-
Family Physician: Isaak Carlton
Chief Complaint
-
SOB
History of Present Illness
Patient is a 74y F with PMH significant for hypertension, DM-II and chronic ILD s/p COVID who presents to ED complaining of SOB. Patient states that she has been feeling fairly well of late. No significant cough, fevers / chills, chest pain,
etc. This evening she was relaxing watching TV when she developed sudden and severe SOB. She called her son (who is an EMT) who arrived with his crew at her home. He notes that patient had initial RA SpO2 of 59% and grossly audible rales.
Patient was started on PAP therapy and transported to the ED for further evaluation. In the ED, pateint was noted to be markedly hypertensive with hypoxemia and CXR consistent with severe pulmonary edema.
Patient was started on IV NTG for BP control and transitioned to BiPAP for hypoxemia.
At the time of my examination, patient notes that she is feeling much improved from initial arrival.
She denies any chest pain, pressure or palpitations.
Patient states that she did have some substernal chest discomfort last week. She was seen by Cardiology and that evaluation was unremarkable.
She was seen by GI and started on PPI daily and she states that her discomfort improved.
No other recent medication changes.
Patient has been followed by Wound Care recently for LLE wounds. These occurred due to L hip fracture for which she was initially hospitalized at [facility] and then seen at [facility] here for rehab stay.
Wounds are improved significantly from prior per patient and her son.
Medical History
Past Medical History
Past Medical History: Reports Other
Additional Past Medical History:
Hypertension
DM-II
CKD IV
ASCVD (CAD, PAD)
Chronic HFpEF
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
Past Surgical History: Reports Other
Additional Past Surgical History:
Gastric Bypass
D&C
T&A
PTCA / Stents
PAD Stents / Endarterectomies
Left ERIC
Social History
Tobacco: Non-smoker
Alcohol: Occasional (Rarely.)
Drug: None
Family History
Family History: Not pertinent
Allergies / Home Medications
Allergies reflects when Allergies were last updated in [employer].
Home Medications with original date entered in [employer]
Allergy/Medication List:
Allergies
Allergy/AdvReac Type Severity Reaction Status Date / Time
MARCELL Inhibitors Allergy Swelling/AN Verified 10/28/24 22:22
[Marcell Inhibitors] GIOEDEMA
chamomile flower Allergy Rash Verified 10/28/24 22:22
Sulfa (Sulfonamide Allergy Rash Verified 10/28/24 22:22
Antibiotics)
sulfite Allergy VASCULITIS Verified 10/28/24 22:22
Home Medications
clopidogrel 75 mg tablet (Plavix) 75 mg PO DAILY 06/19/24
furosemide 40 mg tablet (Lasix) 40 mg PO DAILY PRN ankle swelling 06/19/24
ezetimibe 10 mg tablet 10 mg PO DAILY cholesterol #0 tabs 07/02/24
febuxostat 40 mg tablet 40 mg PO HS elevated uric acid #0 tabs 07/02/24
tramadol 50 mg tablet 50 mg PO Q6H PRN continuaton of care- Mod hip pain 5 days #20 tabs 07/02/24
insulin aspar prot-insulin aspart 100 unit/mL (70-30) subcutaneous pen (Novolog Mix 70-30FlexPen U-100) 2 - 8 unit SC TID 08/09/24
atorvastatin 80 mg tablet 40 mg PO QPM cholesterol 10/29/24
cholecalciferol (vitamin D3) 50 mcg (2,000 unit) tablet (Vitamin D3) 50 mcg PO DAILY 10/29/24
coQ10 (ubiquinol) 200 mg capsule 400 mg PO DAILY 10/29/24
insulin glargine 100 unit/mL (3 mL) subcutaneous pen (Basaglar KwikPen U-100 Insulin) 38 unit SC DAILY 10/29/24
pregabalin 150 mg capsule 75 mg PO HS diabetic neuropathy 10/29/24
sodium bicarbonate 650 mg tablet 650 mg PO BID 10/29/24
spironolactone 25 mg tablet 25 mg PO DAILY 10/29/24
Review of Systems
-
History Source: Patient
A 12 point ROS was completed and negative except as noted: Yes
Constitutional: Reports Fatigue; Denies Fever or Chills
Respiratory: Reports Trouble Breathing; Denies Cough
Cardiac: Denies Chest Pain or Palpitations
Abdomen/GI: Denies Abdominal Pain, Nausea, Vomiting or Diarrhea
: Denies Dysuria or Frequency
Musculoskeletal: Denies Joint Pain or Edema
Skin: Reports Other (Wounds on LLE - improving.)
Neurological: Denies Dizzy or Headache
Psych: Denies Depression or Anxiety
Physical Exam
Vital Signs
Vital Signs
Temp Pulse Resp BP Pulse Ox
97.8 F 96 24 124/79 93
10/28/24 22:09 10/29/24 01:50 10/29/24 01:50 10/29/24 01:50 10/29/24 01:50
Physical Exam
General: Other (74y F in mild distress due to dyspnea. BiPAP mask in place.)
HEENT: Moist mucous membranes and PERRLA
Respiratory: Other (Diffuse rales / wheezes throughout all lung jackson. )
Cardiac: S1/S2, Regular Rhythm and Murmur (II/ SAFIA)
GI: Other (Abdomen is softly distended. No tenderness. Pos BS.)
Musculoskeletal: No Clubbing, No Cyanosis and Other (Trace edema L foot.)
Skin: Other (Few superficial wounds with dressings in place over the LLE.)
Neuro: AO x 3
Laboratory Results
-
10/28/24 22:22
10/28/24 22:22
Laboratory Results
PT 14.0 Sec (11.4-14.6) 10/28/24 22:22
INR 1.05 10/28/24 22:22
Total Bilirubin 0.5 mg/dl (0.2-1.3) 10/28/24 22:22
AST 64 U/L (14-36) H 10/28/24 22:22
ALT 42 U/L (0-35) H 10/28/24 22:22
Alkaline Phosphatase 144 U/L (38-126) H 10/28/24 22:22
Troponin I 0.263 ng/ml H* 10/28/24 22:22
Impression/Plan
-
A/P: Patient is a 74y F with PMH significant for HTN, DM-II and ASCVD who presents to ED for evaluation of SOB.
Flash Pulmonary Edema
Acute on Chronic HFpEF
Acute Hypoxemic Respiratory Failure secondary to the above
Hypertensive Emergency
- Admit for further evaluation and treatment.
- Maintain BiPAP support overnight and can attempt to wean in AM if oxygenation remains stable.
- Continue IV NTG for BP control and titrate as needed.
- IV Lasix BID and follow I/Os, daily weights, etc.
- Cardiology evaluation for additional recommendations.
- Update Echo.
- Follow for continued clinical improvement.
ASCVD
Abnormal Troponin - Unknown Type
- Significant history of CAD, PAD and multiple prior stents.
- Troponin on initial assessment is 0.263.
- EKG with non-specific ST=T wave changes.
- Suspect this is non-MO troponin elevation secondary to CHF / pulm edema.
- Follow troponin to peak to rule out new / acute ischemia.
- Continue Plavix.
- Cardiology evaluation as noted above.
CKD IV
- Stable. Renal function is at / near known baseline.
- Follow for changes with diuresis.
DM-II
- Uncontrolled. Suspect in part due to acute stress.
- No elevated anion gap / DKA.
- Continue basal : bolus insulin regimen + SSI as needed.
- Update A1C.
ILD
- Patient reports history of interstitial lung disease s/p severe COVID pneumonia.
- Followed by Dr. Avila.
- Follow for any new / worsening dyspnea despite diuresis.
- Baseline SpO2 usually in mid-90s per patient / son.
Chronic Normocytic Anemia
- Unknown etiology. Hgb appears at / near known baseline.
- No noted active bleeding, etc.
- Follow H&H for any changes.
DVT Prophylaxis: Subcut heparin
Code Status: Full
[2024-10-29 04:34] LABS: Troponin I 0.387 ng/ml
[2024-10-29 04:46] LABS: Hematocrit 33.9 % (37.0-47.0); Hemoglobin 10.7 g/dL (12.0-16.0); Mean Corp Hgb Conc. 31.6 g/dL (33.0-37.0); Mean Corpuscular Hgb 28.2 pg (27.0-31.0); Mean Corpuscular Volume 89.4 fL (81.0-99.0); Mean Platelet Volume 12.8 fL (7.4-10.4); Platelet Count 175 10^3/uL (130-400); Red Blood Cell Count 3.79 10^6/uL (4.20-5.40); Red Cell Dist. Width 15.8 % (11.5-14.5); White Blood Cell Count 14.1 10^3/uL (4.8-10.8)
[2024-10-29 04:52] LABS: TSH Reflex To Free T4 8.56 uIU/ml (0.47-4.68)
--- NOTE | 2024-10-29 04:56 | EDRN ---
Pt.s repeat troponin is trending upwards, admitting team notified at this time.
[2024-10-29 05:13] LABS: Blood Urea Nitrogen 49 mg/dl (7-17); Calcium 8.2 mg/dl (8.4-10.2); Carbon Dioxide 27 mmol/L (22-30); Chloride 105 mmol/L (98-107); Estimated Creatinine Clearance 19 ml/min; Glucose 327 mg/dl (70-99); HDL Cholesterol 46 mg/dl; LDL Cholesterol, Calculated 53 mg/dl; Potassium 4.5 mmol/L (3.5-5.1); Sodium 141 mmol/L (135-145); Total Cholesterol 112 mg/dl (50-199); Triglyceride 67 mg/dl (10-149); Very Low Density Lipoprotein 13 mg/dl (0-30); eGFR 22.95
[2024-10-29 05:22] LABS: Free T4 1.25 ng/dl (0.78-2.19)
--- NOTE | 2024-10-29 07:48 | CON.CAR ---
Addendum entered and electronically signed by Dangelo Beavers MD 10/29/24 11:04:
I saw and examined the patient.
The LOG SAWYER or PA's note was reviewed and I agree with the note.
Comment: General: Well developed, well nourished in NAD.
Neck: Supple, no JVD, HJR, carotids +2 B/L, no bruits bilaterally.
Heart: Non displaced PMI, RRR, no murmurs, No S3, S4, no rubs.
Lungs: Scattered rhonchi at the bases
Extremities: No clubbing, cyanosis or edema bilaterally.
Neuro: Grossly nonfocal, awake, alert and oriented x3.
tSeph has a history of CAD, PAD, chronic diastolic CHF, hypertension, diabetes, renal insufficiency. She was seen in ER with sudden onset of shortness of breath. She had been seen a week ago with chest discomfort which. Improved with Protonix.
She was sitting watching TV and developed sudden onset of shortness of breath. She was put on BiPAP and is now on high flow oxygen. Chest x-ray consistent with severe pulmonary edema. Troponin elevated has increased to 0.7. Echocardiogram with
ejection fraction 40 to 45% with new inferior and inferolateral hypokinesis
Will treat for CHF with IV Lasix. Will need to follow renal function closely. Will continue to track troponins. Might need to consider cardiac catheterization with reduced ejection fraction and elevated troponins but would be increased risk given
renal insufficiency. Hopefully oxygen can be weaned as well.
Original Note:
Consultation
Consultation Request
Date/Time Consultation Requested: 10/29/2024
Date/Time Consultation Performed: 10/29/2024
Requesting Provider: Dr. Owens
Performing Provider: Lisa Drew PA-C for Dr. Beavers
Reason for Consultation: CHF
Medical History
-
History of Present Illness:
HPI: Steph is a 74 year old female with PMH of CAD, PAD, HFpEF, HTN, HLD, DM2, CKD, iron deficiency anemia, and glaucoma. Presented to [facility] ER with sudden onset shortness of breath. She was seen in the cardiology office on 10/22/2024 for evaluation
of intermittent chest discomfort which came on at rest following dinner. She had no exertional symptoms. She was started on pantoprazole at the time and reported resolution of her chest pain with this. Last night, after dinner she reported sudden
onset shortness of breath while sitting watching TV. EMS was called and she was started on BiPAP. On arrival to ER, she was noted to be significantly hypertensive and presented on IV nitroglycerin. Chest x-ray consistent with severe pulmonary
edema. She was started on IV Lasix and symptomatically has been improving. CT of chest negative for PE. Cardiology consulted for evaluation given elevated troponin and acute heart failure exacerbation. She reports she has no complaints. Denies
any chest pain and breathing is stable on high flow O2.
PMH:
CAD
s/p 2.5 mm Xience OM1 PCI 01/20/21
s/p Xience prox and overlapping previously placed distal OM-1 05/17/2019
s/p 2.5 mm Xience OM1 PCI 02/12/2019
PAD
s/p R common femoral endarterectomy w/ patch angioplasty and covered R iliac stent 01/2024
s/p right SFA angioplasty and stent 04/2020
h/o COVID 19 w/ residual parenchymal scarring
Chronic HFpEF
HTN
HLD
DM2
CKD 4
h/o Henoch-Schonle purpura
Glaucoma
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
h/o gastric bypass 2010
h/o angioedema on MARCELL inhibitors
Aortic atherosclerosis
h/o orthostasis on Terazosin
h/o TIA 2016
Iron deficiency anemia
Past Medical History
Past Medical History: Other (In HPI)
Past Surgical History: Cardiac, Orthopedic (L hip replacement 05/2024) and Tonsilectomy
Social History
Tobacco: Non-Smoker
Alcohol: None
Drug: None
Personal:
Living: With Family
Employment: Employed
Family History
Family History: CAD and Hypertension
Allergies / Home Medications
Allergy/AdvReac Type Severity Reaction Status Date / Time
MARCELL Inhibitors Allergy Swelling/AN Verified 10/28/24 22:22
[Marcell Inhibitors] GIOEDEMA
chamomile flower Allergy Rash Verified 10/28/24 22:22
Sulfa (Sulfonamide Allergy Rash Verified 10/28/24 22:22
Antibiotics)
sulfite Allergy VASCULITIS Verified 10/28/24 22:22
�Medication �Instructions �Recorded �Confirmed �Type
clopidogrel 75 mg tablet (Plavix) 75 mg PO DAILY 06/19/24 10/29/24 History
furosemide 40 mg tablet (Lasix) 40 mg PO DAILY PRN ankle swelling 06/19/24 10/29/24 History
ezetimibe 10 mg tablet 10 mg PO DAILY cholesterol #0 tabs 07/02/24 10/29/24 Rx
febuxostat 40 mg tablet 40 mg PO HS elevated uric acid #0 07/02/24 10/29/24 Rx
tabs
tramadol 50 mg tablet 50 mg PO Q6H PRN continuaton of 07/02/24 10/29/24 Rx
care- Mod hip pain 5 days #20 tabs
insulin aspar prot-insulin aspart 2 - 8 unit SC TID 08/09/24 10/29/24 History
100 unit/mL (70-30) subcutaneous
pen (Novolog Mix 70-30FlexPen
U-100)
atorvastatin 80 mg tablet 40 mg PO QPM cholesterol 10/29/24 10/29/24 History
cholecalciferol (vitamin D3) 50 50 mcg PO DAILY 10/29/24 10/29/24 History
mcg (2,000 unit) tablet (Vitamin
D3)
coQ10 (ubiquinol) 200 mg capsule 400 mg PO DAILY 10/29/24 10/29/24 History
insulin glargine 100 unit/mL (3 38 unit SC DAILY 10/29/24 10/29/24 History
mL) subcutaneous pen (Basaglar
KwikPen U-100 Insulin)
pregabalin 150 mg capsule 75 mg PO HS diabetic neuropathy 10/29/24 10/29/24 History
sodium bicarbonate 650 mg tablet 650 mg PO BID 10/29/24 10/29/24 History
spironolactone 25 mg tablet 25 mg PO DAILY 10/29/24 10/29/24 History
Review of Systems
-
History Source: Patient
All other systems: Negative unless noted
Physical Exam
Vital Signs
Temp Pulse Resp BP Pulse Ox
97.8 F 86 18 125/54 98
10/28/24 22:09 10/29/24 07:15 10/29/24 07:15 10/29/24 07:15 10/29/24 07:20
Lab Results
10/29/24 04:33
10/29/24 04:33
Troponin I 0.387 ng/ml H* D 10/29/24 03:26
Fua-U-Tuzjesdduoy Pept 8600 pg/ml 10/28/24 22:22
Physical Exam
General: Well Developed, Well Nourished and No Apparent Distress
HEENT: Normocephalic, Anicteric and Moist Mucous Membranes
Respiratory: Crackles and Non Labored Respirations
Cardiac: S1/S2 and Regular Rhythm
Musculoskeletal: No Clubbing, No Cyanosis and Edema
Skin: Warm and Dry
Neuro: AO x 3 and Nonfocal/Grossly Intact
Psych: Calm
Impression / Plan
-
PCP: Dr. Carlton
Assembly Machine Tender: Dr. VICKY Danielson
Impression:
Presented w/ sudden onset SOB
Acute on chronic HFpEF
Elevated troponin
Hyperglycemia
CAD
s/p 2.5 mm Xience OM1 PCI 01/20/21
s/p Xience prox and overlapping previously placed distal OM-1 05/17/2019
s/p 2.5 mm Xience OM1 PCI 02/12/2019
PAD
s/p R common femoral endarterectomy w/ patch angioplasty and covered R iliac stent 01/2024
s/p right SFA angioplasty and stent 04/2020
h/o COVID 19 w/ residual parenchymal scarring
HTN
HLD
DM2
CKD 4
h/o Henoch-Schonle purpura
Glaucoma
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
h/o gastric bypass 2010
h/o angioedema on MARCELL inhibitors
Aortic atherosclerosis
h/o orthostasis on Terazosin
h/o TIA 2016
Iron deficiency anemia
Echo 08/06/2020: EF 64%. Mild LVH. Normal RV. Mild MAC with mild MR. No AI or . Trace TR. PAP 29 mmHg
Echo 01/19/2021: EF 55-60%, stage I diastolic dysfunction, trace MR, trace TR, PAP 21 mmHg
Echo 10/29/2024: Study completed, report pending
Plan:
-Presented w/ sudden onset SOB last night after dinner. Admitted with acute heart failure exacerbation.
-Agree w/ IV lasix 40mg BID. Follow daily weights, I&Os.
-Creat stable near baseline at 2.2, follow w/ diuresis.
-Remains on high flow O2. Wean as able.
-Echo completed this AM, await results. Echo 12/2020 with preserved EF as noted above.
-BP elevated on arrival, had been well controlled when last seen in the office.
-Continue hydralazine and spironolactone.
-On IV nitro in ER given elevated BP on arrival, however BPs improving and now reporting headache. Wean as able.
-Elevated troponin noted, up to 0.387. Continue to trend to peak.
-She has h/o CAD, w/ abnormal stress test in 01/2024, however avoided LHC due to lack of symptoms and CKD.
-No CP since starting pantoprazole 10/22.
-May need C pending echo results and troponin peak.
-Continue plavix, lipitor.
HPI: Steph is a 74 year old female with PMH of CAD, PAD, HFpEF, HTN, HLD, DM2, CKD, iron deficiency anemia, and glaucoma. Presented to [facility] ER with sudden onset shortness of breath. She was seen in the cardiology office on 10/22/2024 for evaluation
of intermittent chest discomfort which came on at rest following dinner. She had no exertional symptoms. She was started on pantoprazole at the time and reported resolution of her chest pain with this. Last night, after dinner she reported sudden
onset shortness of breath while sitting watching TV. EMS was called and she was started on BiPAP. On arrival to ER, she was noted to be significantly hypertensive and presented on IV nitroglycerin. Chest x-ray consistent with severe pulmonary
edema. She was started on IV Lasix and symptomatically has been improving. CT of chest negative for PE. Cardiology consulted for evaluation given elevated troponin and acute heart failure exacerbation. She reports she has no complaints. Denies
any chest pain and breathing is stable on high flow O2.
Data Reviewed
-
EKG: Tracing Personally Visualized and interpreted
CT Scan: Report Reviewed by me
Ultrasound: Report Reviewed by me
Labs: Labs Reviewed by me
Old Records: Reviewed
[2024-10-29] MEDS: PLAVIX 75 MG PO (08:07)
[2024-10-29] MEDS: SODIUM BICARBONATE 650 MG PO ×2 (08:08→19:48)
[2024-10-29] MEDS: ALDACTONE 25 MG PO (08:08)
[2024-10-29] MEDS: HEPARIN 5000 UNITS SC ×2 (08:09→19:49)
--- NOTE | 2024-10-29 08:16 | EDRN ---
ECHO in progress. Lorenzo give LASIX when completed
--- NOTE | 2024-10-29 08:38 | W.PN.HOSP.TC ---
Today's Communication/Plan
-
Diuretics
Assessment / Plan
Assessment / Plan
Physical exam:
General: Well Developed, Well Nourished and No Apparent Distress
HEENT: Normocephalic, Atraumatic and Moist Mucous Membranes
Respiratory: Clear to Auscultation; Negative Wheezes, Rales or Rhonchi
Cardiac: Regular Rhythm and S1/S2
GI: Soft, Nontender and Nondistended
Musculoskeletal: No Clubbing, No Cyanosis and No Edema
Neuro: Awake, Alert and Oriented
Psych: Calm
A/P:
Flash Pulmonary Edema
Acute on Chronic HFpEF
Acute Hypoxemic Respiratory Failure secondary to the above
Hypertensive Emergency
- Admit for further evaluation and treatment.
- Maintain BiPAP support overnight and can attempt to wean in AM if oxygenation remains stable.
- Continue IV NTG for BP control and titrate as needed.
- IV Lasix BID and follow I/Os, daily weights, etc.
- Cardiology evaluation for additional recommendations.
- Update Echo.
- Follow for continued clinical improvement.
ASCVD
Abnormal Troponin - Unknown Type
- Significant history of CAD, PAD and multiple prior stents.
- Troponin on initial assessment is 0.263.
- EKG with non-specific ST=T wave changes.
- Suspect this is non-[place] troponin elevation secondary to CHF / pulm edema.
- Follow troponin to peak to rule out new / acute ischemia.
- Continue Plavix.
- Cardiology evaluation as noted above.
CKD IV
- Stable. Renal function is at / near known baseline.
- Follow for changes with diuresis.
DM-II
- Uncontrolled. Suspect in part due to acute stress.
- No elevated anion gap / DKA.
- Continue basal : bolus insulin regimen + SSI as needed.
- Update A1C.
ILD
- Patient reports history of interstitial lung disease s/p severe COVID pneumonia.
- Followed by Dr. Avila.
- Follow for any new / worsening dyspnea despite diuresis.
- Baseline SpO2 usually in mid-90s per patient / son.
Chronic Normocytic Anemia
- Unknown etiology. Hgb appears at / near known baseline.
- No noted active bleeding, etc.
- Follow H&H for any changes.
DVT Prophylaxis: Subcut heparin
Code Status: Full
Anticipated Discharge: > 48 hours
Subjective/Interval History
-
Date of Service: October 29, 2024
Patient remains on oxygen. Less shortness of breath
Objective Data
-
Labs:
Laboratory Results
10/28/24 10/29/24
22:22 04:33
WBC 9.2 14.1 H
Hgb 10.7 L 10.7 L
Hct 34.1 L 33.9 L
Plt Count 183 175
PT 14.0
INR 1.05
Sodium 140 141
Potassium 4.7 4.5
Chloride 105 105
Carbon Dioxide 25 27
BUN 47 H 49 H
Creatinine 2.3 H 2.2 H
Glucose 486 H* 327 H
Calcium 8.3 L 8.2 L
Total Bilirubin 0.5
AST 64 H
ALT 42 H
Alkaline Phosphatase 144 H
Vital Signs:
Vital Signs
Temp Pulse Resp BP Pulse Ox
97.8 F 79 17 118/72 100
10/28/24 22:09 10/29/24 08:15 10/29/24 08:15 10/29/24 08:08 10/29/24 08:00
[2024-10-29 09:08] LABS: Glucose - Point of Care 258 mg/dl (70-99)
[2024-10-29] MEDS: NOVOLOG FLEXPEN-MODERATE RESISTANCE 5 UNITS SC (09:21)
[2024-10-29 09:44] LABS: Troponin I 0.705 ng/ml
--- NOTE | 2024-10-29 09:49 | EDRN ---
Provider updated re- critical value troponin.
[2024-10-29] MEDS: PROTONIX 40 MG PO (09:59)
[2024-10-29] MEDS: ZETIA 10 MG PO (09:59)
[2024-10-29 10:19] LABS: Glycohemoglobin (HgbA1c) 11.8 % (4.0-5.6)
[2024-10-29 13:35] LABS: Glucose - Point of Care 212 mg/dl (70-99)
[2024-10-29] MEDS: NOVOLOG FLEXPEN-MODERATE RESISTANCE 3 UNITS SC (13:46)
[2024-10-29 16:14] LABS: Troponin I 0.649 ng/ml
[2024-10-29 18:59] LABS: Glucose - Point of Care 160 mg/dl (70-99)
--- NOTE | 2024-10-29 19:01 | PTCARENOTE ---
Patient arrived to IMU from the ED. Patient slid from stretcher to bed assist x2. Patient is AOx3. 6L midflow with SpO2 greater than 92%. NSR on monitor. BP stable and nitro gtt running at 10 /hr. See worklist for wound assessment. Call duran within
reach, bed in lowest position, and bed of wheels locked.
[2024-10-29] MEDS: NOVOLOG FLEXPEN-MODERATE RESISTANCE 1 UNITS SC (19:46)
[2024-10-29] MEDS: LIPITOR 80 MG PO (19:48)
[2024-10-29] MEDS: APRESOLINE 25 MG PO (19:48)
[2024-10-29 19:56] LABS: Glucose - Point of Care 159 mg/dl (70-99)
[2024-10-29] MEDS: LASIX IV (20:16)
[2024-10-29 22:10] LABS: Glucose - Point of Care 278 mg/dl (70-99)
[2024-10-29] MEDS: LYRICA 300 MG PO (22:47)
[2024-10-29] MEDS: LANTUS 0.38 UNITS SC (22:47)
[2024-10-30] VITALS (13 sets, daily range): BP systolic 120–165; BP diastolic 46–83; BMI 25.8
[2024-10-30 05:19] LABS: Hematocrit 31.9 % (37.0-47.0); Hemoglobin 10.3 g/dL (12.0-16.0); Mean Corp Hgb Conc. 32.3 g/dL (33.0-37.0); Mean Corpuscular Hgb 28.2 pg (27.0-31.0); Mean Corpuscular Volume 87.4 fL (81.0-99.0); Mean Platelet Volume 13.4 fL (7.4-10.4); Platelet Count 151 10^3/uL (130-400); Red Blood Cell Count 3.65 10^6/uL (4.20-5.40); Red Cell Dist. Width 15.5 % (11.5-14.5); White Blood Cell Count 8.3 10^3/uL (4.8-10.8)
[2024-10-30 05:34] LABS: Blood Urea Nitrogen 52 mg/dl (7-17); Calcium 8.4 mg/dl (8.4-10.2); Carbon Dioxide 27 mmol/L (22-30); Chloride 104 mmol/L (98-107); Estimated Creatinine Clearance 20 ml/min; Glucose 115 mg/dl (70-99); Potassium 3.8 mmol/L (3.5-5.1); Sodium 139 mmol/L (135-145); eGFR 25.73
[2024-10-30] MEDS: ALDACTONE 25 MG PO (07:17)
[2024-10-30] MEDS: APRESOLINE 25 MG PO ×2 (07:17→20:53)
[2024-10-30] MEDS: PLAVIX 75 MG PO (07:17)
[2024-10-30] MEDS: PROTONIX 40 MG PO (07:17)
[2024-10-30] MEDS: SODIUM BICARBONATE 650 MG PO ×2 (07:17→20:53)
[2024-10-30] MEDS: ZETIA 10 MG PO (07:17)
[2024-10-30] MEDS: HEPARIN 5000 UNITS SC ×2 (07:18→20:53)
[2024-10-30] MEDS: LASIX 40 MG IV ×2 (07:18→16:36)
[2024-10-30] MEDS: NOVOLOG FLEXPEN-MODERATE RESISTANCE SC ×2 (07:22→11:06)
[2024-10-30 07:32] LABS: Glucose - Point of Care 75 mg/dl (70-99)
--- NOTE | 2024-10-30 08:16 | W.PN.HOSP.TC ---
Addendum entered and electronically signed by Fabio Hand MD 10/30/24 17:09:
Stage 2 right buttock pressure injury, POA
Original Note:
Today's Communication/Plan
-
IV Lasix. Anti-ischemic regimen
Assessment / Plan
Assessment / Plan
Physical exam:
General: Acutely ill. No acute distress
HEENT: Normocephalic, Atraumatic and Moist Mucous Membranes
Respiratory: Clear to Auscultation; Negative Wheezes, Rales or Rhonchi
Cardiac: Regular Rhythm and S1/S2
GI: Soft, Nontender and Nondistended
Musculoskeletal: No Clubbing, No Cyanosis and No Edema
Neuro: Awake, Alert and Oriented
Psych: Calm
A/P:
Acute systolic CHF with flash pulmonary edema presentation:
On IV Lasix 40 mg twice a day
Continues spironolactone
On hydralazine in light of CKD
She was on nitroglycerin upon admission
Consider beta-pasha
Echocardiogram showed EF 40 to 45%
Elevated troponin:
Depressed EF at mild inferolateral and inferior hypokinesis-defer to cardiology ischemic workup
On Plavix 75 mg p.o. daily, atorvastatin 80 mg p.o. every evening, ezetimibe 10 mg p.o. daily
Acute hypoxic respiratory failure, POA:
Improved
Back on room air today
Continue to monitor respiratory status closely
Chronic kidney disease stage IV:
Avoid nephrotoxic
And sodium bicarb
Monitor renal function
Hypertension:
On hydralazine, furosemide, spironolactone
Diabetes mellitus type 2:
Insulin sliding scale
Monitor blood sugars closely
DVT prophylaxis:
Heparin subcu
CODE STATUS:
Full code
Total time spent on today's encounter was 52 minutes which included time spent in counseling the patient/family regarding diagnosis and treatment plan as listed above, goals of care, and symptom management. Case was discussed with nursing staff,
specialists, and care coordinators/case management. All labs and imaging personally reviewed by me. Remainder the time spent in detailed review of previous records, lab data, imaging, and other medical provider documentation.
Anticipated Discharge: > 48 hours
Subjective/Interval History
-
Date of Service: October 30, 2024
Patient with less shortness of breath. No chest pain. On room air today
Objective Data
-
Labs:
Laboratory Results
10/30/24
04:32
WBC 8.3
Hgb 10.3 L
Hct 31.9 L
Plt Count 151
Sodium 139
Potassium 3.8
Chloride 104
Carbon Dioxide 27
BUN 52 H
Creatinine 2.0 H
Glucose 115 H
Calcium 8.4
Vital Signs:
Vital Signs
Temp Pulse Resp BP Pulse Ox
98.5 F 67 14 136/61 95
10/30/24 07:28 10/30/24 07:18 10/30/24 05:30 10/30/24 07:18 10/30/24 07:50
I&O
10/29/24 10/30/24 10/31/24
06:59 06:59 06:59
Output Total 400 / 400
Balance -400 / -400
--- NOTE | 2024-10-30 09:12 | PN.CDI ---
CDI
- -
CDI:
Physician Documentation Request
Admit Date: 10/29/24 02:11
Dear Doctor Yazan,
Patient admitted with acute on chronic systolic CHF.
10/29 Nursing skin assessment, 'Stage 2 right buttock pressure injury, POA.'
Physician documentation of the type and location of wounds is required for compliant documentation. Based on the above clinical findings and your assessment, please provide the following in your progress note:
Type (etiology) of ulcer/wound:
- Pressure (decubitus) ulcer
- Other
- Unable to determine
For a pressure ulcer, please also include the stage* of the ulcer:
- Stage 1 - Skin intact, non-blanchable redness
- Stage 2 - Partial thickness loss of dermis, includes intact or open blister
- Stage 3 - Full thickness tissue not including bone, tendon or muscle
- Stage 4 - Full thickness tissue loss, including exposed bone, tendon or muscle
- Unstageable - Full thickness loss in which the base of the ulcer is covered by slough (yellow, vivar, richard, green or brown) and/or eschar (vivar, brown or black) in the wound bed.
- Unable to determine
Use of terms such as suspected, likely, concern for, or probable (associated with a specific diagnosis that is being evaluated, monitored, or treated as if it exists) are acceptable and can be coded in the inpatient setting, when documented at the
time of discharge.
Thank you,
Juliana HALL,RN,CCDS
CDI Specialist
Available via [place] text
Please use your independent medical judgment in providing your response.
*Source: National Pressure Ulcer Advisory Panel (NPUAP)
[2024-10-30 11:13] LABS: Glucose - Point of Care 148 mg/dl (70-99)
--- NOTE | 2024-10-30 14:12 | WOUNDNOTE ---
L ANTERIOR LOWER LEG
--- NOTE | 2024-10-30 14:13 | WOUNDNOTE ---
L HEEL AND POSTERIOR ANKLE
--- NOTE | 2024-10-30 14:14 | WOUNDNOTE ---
WO RN note: Patient admitted with acute hypoxia, CHF.
See H&P for complete history. Lives with .
PMH: ED Past Medical History: CAD, GERD, HTN, Hypercholesterolemia, IDDM and Other (COVID-19, anemia, peripheral vascular disease, chronic kidney disease, celiac artery dissection, anemia, HSP)
ED Past Surgical History: 02/29/24 R femoral angioplasty with stent.
Wound Location and type/assessment: Patient admitted with: L lower anterior leg and lateral foot with chronic full thickness ulcers related to DM and PAD. [place] mixed with vivar slough, no odor. Patient goes to see Dr. Chiu at wound center
weekly. Reviewed with patient current wound care. Patient states her helps her at home with dressing changes. L lower leg with scarring that patient states was from an renata wrap that was too tight. L lateral heel with thin dry scab. B/L +
palpable pedal pulses, skin warm and dry, no edema. Sacrum intact, R buttock with healed PI, suspect stage 2. Patient able to turn self in bed and lift up legs. Ambulates with walker at home.
Appetite: Good.
Pressure redistribution devices in place: On air mattress, can be on Accumax with air overlay. Air cushion on chair.
Plan:Silicone foams applied to L foot and lower leg. Will order Santyl to start in am with dry dressing daily. Sacral silicone foam applied to buttock healed ulcers, nurse Liss made aware can also use barrier cream if foam not working. Applied
adhesive foams to heels, pillow under calves. Will confirm orders with hospitalist and updated nurse.
Updated care plan and will follow as needed.
Note to case management of equipment requested for discharge: None
Recommend follow up at wound care center upon discharge.
--- NOTE | 2024-10-30 14:15 | WOUNDNOTE ---
[facility] RN note: Patient admitted with acute hypoxia, CHF.
See H&P for complete history. Lives with .
PMH: ED Past Medical History: CAD, GERD, HTN, Hypercholesterolemia, IDDM and Other (COVID-19, anemia, peripheral vascular disease, chronic kidney disease, celiac artery dissection, anemia, HSP)
ED Past Surgical History: 02/29/24 R femoral angioplasty with stent.
Wound Location and type/assessment: Patient admitted with: L lower anterior leg and lateral ankle with chronic full thickness ulcers related to DM and PAD. [place] mixed with vivar slough, no odor. Patient goes to see Dr. Chiu at wound center
weekly. Reviewed with patient current wound care. Patient states her helps her at home with dressing changes. L lower leg with scarring that patient states was from an renata wrap that was too tight. L lateral heel with thin dry scab. B/L +
palpable pedal pulses, skin warm and dry, no edema. Sacrum intact, R buttock with healed PI, suspect stage 2. Patient able to turn self in bed and lift up legs. Ambulates with walker at home.
Appetite: Good.
Pressure redistribution devices in place: On air mattress, can be on Accumax with air overlay. Air cushion on chair.
Plan: Will order Santyl to start in am with dry dressing daily. Will confirm orders with hospitalist and updated nurse.
Updated care plan and will follow as needed.
Note to case management of equipment requested for discharge: None
Recommend follow up at wound care center upon discharge.
--- NOTE | 2024-10-30 16:01 | CM ---
Patient with Dx Flash Pulmonary Edema, HF, Abnormal Troponins. O2 3L. Receiving IV Lasix. Activity; assist of 1, OOB chair. Seen by wound care nurse. PT Dawit pending.
Met with patient who resides with her in a 3 story house with 2 TIMOTHY.
The patient was independent in ADLs and ambulation using her RW when out, however states she cannot bear wt on her left foot since Jun 2024.
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
The patient resports that her assists her with wound care, and she also goes to the wound care center once/wk.
DME - RW, w/c, raised toilet seat
VN - prior VN
SNF - none
Acute Rehab- recent stay at [facility]
PCP - Rodney Carlton
Pharmacy - [facility] [place]
The patient says her primary contact is her son Dangelo who is a film loader.
Patient may benefit from PT Dawit---> message to Dr Hand. He will order after patient seen by cardiology.
Plan follow up once seen by PT.
[2024-10-30 16:50] LABS: Glucose - Point of Care 182 mg/dl (70-99)
[2024-10-30] MEDS: LIPITOR 80 MG PO (17:08)
--- NOTE | 2024-10-30 17:10 | PTCARENOTE ---
Patient AOx3. Chronic L sided neuropathy. Patient weaned to RA with SpO2 greater than 92%. VSS. NSR on monitor. Trace B/L LE edema. Assist x1 when OOB. Large formed brown BM. Call duran within reach, bed in lowest position, and bed of wheels locked.
--- NOTE | 2024-10-30 17:11 | PTCARENOTE ---
Verbal report given to Unique ROGER on 4W. Patient transferred via wheelchair. Patient belongings sent with patient.
[2024-10-30] MEDS: NOVOLOG FLEXPEN-MODERATE RESISTANCE 1 UNITS SC (17:25)
[2024-10-30 20:50] LABS: Glucose - Point of Care 341 mg/dl (70-99)
[2024-10-30] MEDS: LYRICA 300 MG PO (20:55)
[2024-10-30] MEDS: LANTUS 0.38 UNITS SC (20:55)
[2024-10-31 03:16] VITALS: BP 105/54
[2024-10-31 06:00] VITALS: BMI 24.6
[2024-10-31 07:00] VITALS: BP 123/55
[2024-10-31 07:38] LABS: Glucose - Point of Care 62 mg/dl (70-99)
[2024-10-31] MEDS: NOVOLOG FLEXPEN-MODERATE RESISTANCE SC ×2 (07:38→18:38)
[2024-10-31] MEDS: SODIUM BICARBONATE 650 MG PO ×2 (07:39→20:23)
[2024-10-31] MEDS: ALDACTONE 25 MG PO (07:39)
[2024-10-31] MEDS: PROTONIX 40 MG PO (07:39)
[2024-10-31] MEDS: ZETIA 10 MG PO (07:39)
[2024-10-31] MEDS: APRESOLINE 25 MG PO ×2 (07:39→20:23)
[2024-10-31] MEDS: PLAVIX 75 MG PO (07:39)
[2024-10-31] MEDS: SANTYL OINTMENT 1 APPLIC TOPICAL (07:40)
[2024-10-31] MEDS: HEPARIN 5000 UNITS SC ×2 (07:40→20:22)
[2024-10-31] MEDS: LASIX 40 MG IV (07:40)
[2024-10-31] MEDS: DEXTROSE 50% SYRINGE 12.5 GRAMS IV (07:43)
--- NOTE | 2024-10-31 07:57 | W.PN.CARDCBS ---
Today's Communication / Plan
-
This is the note from October 30, 2024
Continue diuresis. Creatinine improved to 2.0.
Tentative plan is for left/right heart cath Tuesday 10/31
Impression / Plan
-
PCP: Dr. Carlton
Ase Master Mechanic: Dr. VICKY Danielson
Impression:
Presented w/ sudden onset SOB
Acute on chronic HFpEF
Elevated troponin
Hyperglycemia
CAD
s/p 2.5 mm Xience OM1 PCI 01/20/21
s/p Xience prox and overlapping previously placed distal OM-1 05/17/2019
s/p 2.5 mm Xience OM1 PCI 02/12/2019
PAD
s/p R common femoral endarterectomy w/ patch angioplasty and covered R iliac stent 01/2024
s/p right SFA angioplasty and stent 04/2020
h/o COVID 19 w/ residual parenchymal scarring
HTN
HLD
DM2
CKD 4
h/o Henoch-Schonle purpura
Glaucoma
Celiac compression syndrome s/p LUG BREAKER AND WIRE PULLER for compression and dissected 2016
h/o gastric bypass 2010
h/o angioedema on ZAY inhibitors
Aortic atherosclerosis
h/o orthostasis on Terazosin
h/o TIA 2016
Iron deficiency anemia
Echo 08/06/2020: EF 64%. Mild LVH. Normal RV. Mild MAC with mild MR. No AI or . Trace TR. PAP 29 mmHg
Echo 01/19/2021: EF 55-60%, stage I diastolic dysfunction, trace MR, trace TR, PAP 21 mmHg
Echo 10/29/2024: Ef 40-45%
Plan:
-Creatinine improved down to 2.0. LVEF 40 to 45% with wall motion abnormalities. With known history of coronary disease we will proceed with left heart catheterization and right heart catheterization 10/31
-Continue Plavix. Add aspirin 81 mg daily. She is allergic to ZAY inhibitors. Continue hydralazine. Continue spironolactone. Will consider adding nitrates if blood pressure improves.
-Will ask nephrology to comment. She is known to Dr. Meléndez
-She has h/o CAD, w/ abnormal stress test in 01/2024, however avoided [facility] due to lack of symptoms and CKD.
HPI: Steph is a 74 year old female with PMH of CAD, PAD, HFpEF, HTN, HLD, DM2, CKD, iron deficiency anemia, and glaucoma. Presented to [facility] ER with sudden onset shortness of breath. She was seen in the cardiology office on 10/22/2024 for evaluation
of intermittent chest discomfort which came on at rest following dinner. She had no exertional symptoms. She was started on pantoprazole at the time and reported resolution of her chest pain with this. Last night, after dinner she reported sudden
onset shortness of breath while sitting watching TV. EMS was called and she was started on BiPAP. On arrival to ER, she was noted to be significantly hypertensive and presented on IV nitroglycerin. Chest x-ray consistent with severe pulmonary
edema. She was started on IV Lasix and symptomatically has been improving. CT of chest negative for PE. Cardiology consulted for evaluation given elevated troponin and acute heart failure exacerbation. She reports she has no complaints. Denies
any chest pain and breathing is stable on high flow O2.
Progress Note - Ase Master Mechanic
Subjective
Date of Service: October 30, 2024 Note is from October 30
no chest pains
Objective
Labs:
10/30/24 04:32
Labs
Hgb 10.3 g/dL (12.0-16.0) L 10/30/24 04:32
Hct 31.9 % (37.0-47.0) L 10/30/24 04:32
Plt Count 151 10^3/uL (130-400) 10/30/24 04:32
PT 14.0 Sec (11.4-14.6) 10/28/24 22:22
INR 1.05 10/28/24 22:22
Sodium 139 mmol/L (135-145) 10/30/24 04:32
Potassium 3.8 mmol/L (3.5-5.1) 10/30/24 04:32
BUN 52 mg/dl (7-17) H 10/30/24 04:32
Creatinine 2.0 mg/dL (0.6-1.0) H 10/30/24 04:32
Glucose 115 mg/dl (70-99) H 10/30/24 04:32
Troponins
10/28/24 10/29/24 10/29/24
22:22 03:26 09:10
Troponin I 0.263 H* 0.387 H* D 0.705 H* D
10/29/24
15:40
Troponin I 0.649 H*
Vital Signs and I&O:
Vital Signs
Temp Pulse Resp BP Pulse Ox
98.4 F 61 16 105/54 98
10/31/24 03:16 10/31/24 03:16 10/31/24 03:16 10/31/24 03:16 10/31/24 03:16
Vital Signs
Temp Pulse Resp BP Pulse Ox
98.4 F 61 16 105/54 98
10/31/24 03:16 10/31/24 03:16 10/31/24 03:16 10/31/24 03:16 10/31/24 03:16
Intake & Output
10/29/24 10/30/24 10/31/24 11/01/24
06:59 06:59 06:59 06:59
Intake Total 480 / 480
Output Total 400 / 400
Balance -400 / -400 480 / 480
Physical Exam
Physical Exam
GEN: No distress, awake, Ox3
HEENT: supple, anicteric, mmm
LUNGS: CTA, no wheezes/rales
CV: Reg, S1/S2, 1/6 syst LSB, S3+
ABD: soft, BS+, NT/ND
EXT: No edema
NEURO: Gross non-focal
SKIN: No rash
--- NOTE | 2024-10-31 08:39 | W.PN.HOSP.TC ---
Today's Communication/Plan
-
IV Lasix. Nephrology consult
Assessment / Plan
Assessment / Plan
Physical exam:
General: Acutely ill. No acute distress
HEENT: Normocephalic, Atraumatic and Moist Mucous Membranes
Respiratory: Clear to Auscultation; Negative Wheezes, Rales or Rhonchi
Cardiac: Regular Rhythm and S1/S2
GI: Soft, Nontender and Nondistended
Musculoskeletal: No Clubbing, No Cyanosis and No Edema
Neuro: Awake, Alert and Oriented
Psych: Calm
A/P:
Acute systolic CHF with flash pulmonary edema presentation:
On IV Lasix 40 mg twice a day
Continues spironolactone
On hydralazine in light of CKD and added Imdur
She was on nitroglycerin upon admission
Started on Toprol XL
Echocardiogram showed EF 40 to 45%
Elevated troponin:
Depressed EF at mild inferolateral and inferior hypokinesis-defer to cardiology ischemic workup
On Plavix 75 mg p.o. daily, atorvastatin 80 mg p.o. every evening, ezetimibe 10 mg p.o. daily
Plan for cardiac catheterization-discussed with cardiology today
Acute hypoxic respiratory failure, POA:
Improved
Back on room air today
Continue to monitor respiratory status closely
Chronic kidney disease stage IV:
Nephrology consulted by cardiology
Avoid nephrotoxic
cont sodium bicarb
Monitor renal function
Hypertension:
On hydralazine, furosemide, spironolactone
Diabetes mellitus type 2:
Insulin sliding scale
Monitor blood sugars closely
DVT prophylaxis:
Heparin subcu
CODE STATUS:
Full code
Total time spent on today's encounter was 52 minutes which included time spent in counseling the patient/family regarding diagnosis and treatment plan as listed above, goals of care, and symptom management. Case was discussed with nursing staff,
specialists, and care coordinators/case management. All labs and imaging personally reviewed by me. Remainder the time spent in detailed review of previous records, lab data, imaging, and other medical provider documentation.
Anticipated Discharge: > 48 hours
Subjective/Interval History
-
Date of Service: October 31, 2024
Patient complained of shortness of breath and back on oxygen although overall not as when she came in. No chest pain.
Objective Data
-
Labs:
Laboratory Results
10/31/24
08:03
Sodium Pending
Potassium Pending
Chloride Pending
Carbon Dioxide Pending
BUN Pending
Creatinine Pending
Glucose Pending
Calcium Pending
Vital Signs:
Vital Signs
Temp Pulse Resp BP Pulse Ox
98.4 F 61 16 105/54 98
10/31/24 03:16 10/31/24 03:16 10/31/24 03:16 10/31/24 03:16 10/31/24 03:16
I&O
10/30/24 10/31/24 11/01/24
06:59 06:59 06:59
Intake Total 480 / 480
Output Total 400 / 400
Balance -400 / -400 480 / 480
[2024-10-31 08:44] LABS: Glucose - Point of Care 104 mg/dl (70-99)
--- NOTE | 2024-10-31 08:58 | W.PN.CARDCBS ---
Addendum entered and electronically signed by Dangelo Beavers MD 10/31/24 10:55:
I saw and examined the patient.
The CHERRY SORTER or PA's note was reviewed and I agree with the note.
Comment: General: Well developed, well nourished in NAD.
Neck: Supple, no JVD, HJR, carotids +2 B/L, no bruits bilaterally.
Heart: Non displaced PMI, RRR, no murmurs, No S3, S4, no rubs.
Lungs: Scattered rhonchi
Extremities: No clubbing, cyanosis or edema bilaterally.
Neuro: Grossly nonfocal, awake, alert and oriented x3.
She had 2 episodes of shortness of breath during the night and is back on oxygen. Creatinine is increased to 2.3 with a baseline of approximately 2.2. Will consult nephrology. Will do catheterization on 11/01 as patient needs to lie flat and need
clearance from nephrology. Hold Lasix for now. Start Toprol XL and Imdur.
Original Note:
Today's Communication / Plan
-
Possible cardiac cath today
Cre up to 2.3 today, was 2.0 yesterday
Nephrology consulted
OK to have juice while we await final word on cath today
Start Toprol XL 25 mg daily and Imdur ER 30 mg daily, will stagger dosing and follow BP
Impression / Plan
-
PCP: Dr. Carlton
Calculating Machine Operator: Dr. VICKY Danielson
Impression:
Presented w/ sudden onset SOB
Acute on chronic HFpEF
Elevated troponin, possible ACS
Hyperglycemia
CAD
s/p 2.5 mm Xience OM1 PCI 01/20/21
s/p Xience prox and overlapping previously placed distal OM-1 05/17/2019
s/p 2.5 mm Xience OM1 PCI 02/12/2019
PAD
s/p R common femoral endarterectomy w/ patch angioplasty and covered R iliac stent 01/2024
s/p right SFA angioplasty and stent 04/2020
h/o COVID 19 w/ residual parenchymal scarring
HTN
HLD
DM2
CKD 4
h/o Henoch-Schonle purpura
Glaucoma
Celiac compression syndrome s/p ENERGY EFFICIENCY ENGINEER for compression and dissected 2016
h/o gastric bypass 2010
h/o angioedema on ZAY inhibitors
Aortic atherosclerosis
h/o orthostasis on Terazosin
h/o TIA 2016
Iron deficiency anemia
Echo 08/06/2020: EF 64%. Mild LVH. Normal RV. Mild MAC with mild MR. No AI or . Trace TR. PAP 29 mmHg
Echo 01/19/2021: EF 55-60%, stage I diastolic dysfunction, trace MR, trace TR, PAP 21 mmHg
Echo 10/29/2024: EF 40-45%, Stage I diastolic dysfunction, mild inferolateral and inferior hypokinesis
Plan:
-Overnight events noted, patient was more SOB, but normal pulse ox, nursing started oxygen at 2 L NC for comfort and patient feels better. Patient was not using supplemental oxygen prior to admission.
-Weight is down 4 lbs overnight with Lasix 40 mg IV BID
-Labs delayed 10/31/24, but when they finally came back they were reviewed by me and the Cre increased to 2.3. Cre was 2.0 on 10/30/24. Lasix now on hold, but dose was already given 10/31/24 AM.
-Echo report reviewed and summarized above by me 10/31/24. EF is now reduced at 40-45% with new mild inferolateral and inferior hypokinesis
-Patient is not chronically on BB, will add Toprol XL 25 mg daily starting now, orders placed by me 10/31/24
-Patient is allergic to ZAY, she had angioedema. Will not add ARB/ARNI due to JESI on CKD 4
-Outpatient dose of spironolactone 25 mg daily has been continued
-Outpatient dose of hydralazine 25 mg BID has been continued
-Patient is not chronically on nitrates, will add Imdur ER 30 mg daily, ordered by sd 10/31/24
-Troponin peaked at 0.705. Cardiac cath recommended and now pending due to bump in Cre on 10/31/24. Nephrology consulted by sd 10/31/24
-Outpatient dose of Plavix 75 mg daily was continued. Patient is chronically on Plavix due to h/o PAD and TIA as well.
-Aspirin 81 mg daily added this admission
-TT update to hospitalist attending from sd 10/31/24, also d/w nursing that patient can have juice while we await nephrology consultation 10/31/24
HPI: Steph is a 74 year old female with PMH of CAD, PAD, HFpEF, HTN, HLD, DM2, CKD, iron deficiency anemia, and glaucoma. Presented to [facility] ER with sudden onset shortness of breath. She was seen in the cardiology office on 10/22/2024 for evaluation
of intermittent chest discomfort which came on at rest following dinner. She had no exertional symptoms. She was started on pantoprazole at the time and reported resolution of her chest pain with this. Last night, after dinner she reported sudden
onset shortness of breath while sitting watching TV. EMS was called and she was started on BiPAP. On arrival to ER, she was noted to be significantly hypertensive and presented on IV nitroglycerin. Chest x-ray consistent with severe pulmonary
edema. She was started on IV Lasix and symptomatically has been improving. CT of chest negative for PE. Cardiology consulted for evaluation given elevated troponin and acute heart failure exacerbation. She reports she has no complaints. Denies
any chest pain and breathing is stable on high flow O2.
Progress Note - Calculating Machine Operator
Subjective
Date of Service: October 31, 2024
She was more SOB overnight, but no chest pain
Objective
Labs:
10/30/24 04:32
Labs
Hgb 10.3 g/dL (12.0-16.0) L 10/30/24 04:32
Hct 31.9 % (37.0-47.0) L 10/30/24 04:32
Plt Count 151 10^3/uL (130-400) 10/30/24 04:32
PT 14.0 Sec (11.4-14.6) 10/28/24 22:22
INR 1.05 10/28/24 22:22
Sodium 139 mmol/L (135-145) 10/30/24 04:32
Potassium 3.8 mmol/L (3.5-5.1) 10/30/24 04:32
BUN 52 mg/dl (7-17) H 10/30/24 04:32
Creatinine 2.0 mg/dL (0.6-1.0) H 10/30/24 04:32
Glucose 115 mg/dl (70-99) H 10/30/24 04:32
Troponins
10/28/24 10/29/24 10/29/24
22:22 03:26 09:10
Troponin I 0.263 H* 0.387 H* D 0.705 H* D
10/29/24
15:40
Troponin I 0.649 H*
Vital Signs and I&O:
Vital Signs
Temp Pulse Resp BP Pulse Ox
98.4 F 61 16 105/54 98
10/31/24 03:16 10/31/24 03:16 10/31/24 03:16 10/31/24 03:16 10/31/24 03:16
Vital Signs
Temp Pulse Resp BP Pulse Ox
98.4 F 61 16 105/54 98
10/31/24 03:16 10/31/24 03:16 10/31/24 03:16 10/31/24 03:16 10/31/24 03:16
Intake & Output
10/29/24 10/30/24 10/31/24 11/01/24
06:59 06:59 06:59 06:59
Intake Total 480 / 480
Output Total 400 / 400
Balance -400 / -400 480 / 480
Physical Exam
Physical Exam
GEN: AAOx3
HEENT: MMM, wearing glasses
LUNGS: 2 L NC. No audible wheeze
CV: SR on tele.
ABD: ND
EXT: No edema B/L LE
NEURO: Gross non-focal
SKIN: No rash
[2024-10-31 09:20] LABS: Blood Urea Nitrogen 52 mg/dl (7-17); Calcium 8.6 mg/dl (8.4-10.2); Carbon Dioxide 30 mmol/L (22-30); Chloride 99 mmol/L (98-107); Estimated Creatinine Clearance 15 ml/min; Glucose 144 mg/dl (70-99); Potassium 3.7 mmol/L (3.5-5.1); Sodium 138 mmol/L (135-145); eGFR 21.76
[2024-10-31 11:00] VITALS: BP 136/65
--- NOTE | 2024-10-31 12:42 | W.CON.NEPH ---
Consultation
-
Date/Time Consultation Requested: October 31, 2024 at 9 AM
Date/Time Consultation Performed: October 31, 2024 at 12 PM
Requesting Provider: Merlyn Santiago PA-C
Performing Provider: Dr. Navarrete
Reason for Consultation: CKD
Medical History
-
Chief Complaint: CKD
History of Present Illness:
74y F with PMH significant for hypertension, DM-II and chronic ILD s/p COVID who presents to ED complaining of SOB. And pulmonary edema on x-ray treated with IV diuretics with reduced ejection fraction from previous 40 to 45%
Patient has chronic kidney disease and follows with Dr. Baptiste
Renal consult for BERYL prevention
Baseline creatinine between 2 and 2.3
Past Medical History
Hypertension, DM-II and chronic ILD s/p COVID
Social History
Tobacco: Non-Smoker
Alcohol: None
Drug: None
Family History
Family History: Not Pertinent
Allergies / Home Medications
Allergy/AdvReac Type Severity Reaction Status Date / Time
MARCELL Inhibitors Allergy Swelling/AN Verified 10/28/24 22:22
[Marcell Inhibitors] GIOEDEMA
chamomile flower Allergy Rash Verified 10/28/24 22:22
Sulfa (Sulfonamide Allergy Rash Verified 10/28/24 22:22
Antibiotics)
sulfite Allergy VASCULITIS Verified 10/28/24 22:22
�Medication �Instructions �Recorded �Confirmed �Type
clopidogrel 75 mg tablet (Plavix) 75 mg PO DAILY Blood Clot 06/19/24 10/29/24 History
Prevention/Tx
furosemide 40 mg tablet (Lasix) 40 mg PO DAILY Fluid 06/19/24 10/29/24 History
Retention/Swelling
ezetimibe 10 mg tablet 10 mg PO DAILY cholesterol #0 tabs 07/02/24 10/29/24 Rx
febuxostat 40 mg tablet 40 mg PO HS elevated uric acid #0 07/02/24 10/29/24 Rx
tabs
insulin aspar prot-insulin aspart 2 - 8 unit SC AC 08/09/24 10/29/24 History
100 unit/mL (70-30) subcutaneous
pen (Novolog Mix 70-30FlexPen
U-100)
atorvastatin 80 mg tablet 80 mg PO QPM cholesterol 10/29/24 10/29/24 History
cholecalciferol (vitamin D3) 50 50 mcg PO DAILY Supplement 10/29/24 10/29/24 History
mcg (2,000 unit) tablet (Vitamin
D3)
coQ10 (ubiquinol) 200 mg capsule 400 mg PO DAILY High Cholesterol 10/29/24 10/29/24 History
hydralazine 25 mg tablet 25 mg PO BID 10/29/24 10/29/24 History
insulin glargine 100 unit/mL (3 38 unit SC HS 10/29/24 10/29/24 History
mL) subcutaneous pen (Basaglar
KwikPen U-100 Insulin)
pantoprazole 40 mg tablet,delayed 40 mg PO DAILY 10/29/24 10/29/24 History
release (Protonix)
pregabalin 150 mg capsule 300 mg PO HS diabetic neuropathy 10/29/24 10/29/24 History
sodium bicarbonate 650 mg tablet 650 mg PO BID 10/29/24 10/29/24 History
spironolactone 25 mg tablet 25 mg PO DAILY 10/29/24 10/29/24 History
tramadol 50 mg tablet 50 mg PO Q6HPRN PRN moderate pains 10/29/24 10/29/24 History
Review of Systems
-
Mild short of breath much improved no chest pain
No nausea or vomiting
All other systems: Negative unless noted
Physical Exam
Vital Signs
Vital Signs
Temp Pulse Resp BP Pulse Ox
98.1 F 75 18 136/65 98
10/31/24 07:00 10/31/24 11:00 10/31/24 11:00 10/31/24 11:00 10/31/24 11:00
Lab Results
WBC 8.3 10^3/uL (4.8-10.8) 10/30/24 04:32
RBC 3.65 10^6/uL (4.20-5.40) L 10/30/24 04:32
Hgb 10.3 g/dL (12.0-16.0) L 10/30/24 04:32
Hct 31.9 % (37.0-47.0) L 10/30/24 04:32
Plt Count 151 10^3/uL (130-400) 10/30/24 04:32
Sodium 138 mmol/L (135-145) 10/31/24 08:03
Potassium 3.7 mmol/L (3.5-5.1) 10/31/24 08:03
Chloride 99 mmol/L (98-107) 10/31/24 08:03
Carbon Dioxide 30 mmol/L (22-30) 10/31/24 08:03
BUN 52 mg/dl (7-17) H 10/31/24 08:03
Creatinine 2.3 mg/dL (0.6-1.0) H 10/31/24 08:03
eGFR 21.76 10/31/24 08:03
Glucose 144 mg/dl (70-99) H 10/31/24 08:03
Calcium 8.6 mg/dl (8.4-10.2) 10/31/24 08:03
Vbx-Z-Dcrszeruefa Pept 8600 pg/ml 10/28/24 22:22
Albumin 4.0 g/dl (3.5-5.0) 10/28/24 22:22
Physical Exam
General no acute distress
HEENT no cephalic atraumatic extraocular muscle intact no scleral icterus no JVD neck supple
lungs fine crackles
heart regular S1-S2 positive
abdomen soft nontender positive bowel sounds
extremities no edema pulses present bilateral
Neurologically nonfocal alert and oriented x 3
Skin no lesions no abrasions no petechiae
Psych normal affect no bizarre behavior
Data Reviewed
-
Radiology: Image Personally Visualized and interpreted
Labs: Labs Reviewed by me and Discussed with Patient
Assessment/Plan
-
74y F with PMH significant for hypertension, DM-II and chronic ILD s/p COVID who presents to ED complaining of SOB. And pulmonary edema on x-ray treated with IV diuretics with reduced ejection fraction from previous 40 to 45%
Patient has chronic kidney disease and follows with Dr. Baptiste
Renal consult for BERYL prevention
Baseline creatinine between 2 and 2.3
IMP:
Shortness of breath CHF
Hx of COVID-19
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
CKD stage 4 (baseline Cr� 2.5)-follows Dr Lim
IDDM with diabetic neuropathy and nephropathy
CAD hx of AR, hx of stents
HTN
DM
GERD
h/o ACEi-related angioedema
h/o Henoch-Schonlein purpura
Gastric bypass 2010
ALISHA, mild, with nocturnal hypoxemia
PAD, SFA stent Apr 2020
Plan:
Ordered BERYL prophylaxis bicarb protocol
Discussed with the patient aware of risk as she has had contrast in the past and is aware.
Cardiac cath tomorrow
Loop diuretic on hold
[2024-10-31] MEDS: TOPROL XL 25 MG PO (12:45)
[2024-10-31] MEDS: IMDUR (EXTENDED RELEASE) 30 MG PO (12:45)
[2024-10-31 13:01] LABS: Glucose - Point of Care 204 mg/dl (70-99)
[2024-10-31] MEDS: NOVOLOG FLEXPEN-MODERATE RESISTANCE 3 UNITS SC (13:12)
[2024-10-31 15:00] VITALS: BP 118/54
--- NOTE | 2024-10-31 15:08 | CM ---
Chart reviewed and patient would benefit from PT/OT to assist with discharge planning needs for patient.
Plan; Await PT/OT evaluations for discharge planning needs.
[2024-10-31] MEDS: LIPITOR 80 MG PO (17:20)
[2024-10-31 17:25] LABS: Glucose - Point of Care 422 mg/dl (70-99)
[2024-10-31 18:47] LABS: Glucose 327 mg/dl (70-99)
[2024-10-31] MEDS: NOVOLOG FLEXPEN-MODERATE RESISTANCE 7 UNITS SC (18:49)
[2024-10-31 19:29] VITALS: BP 128/58
[2024-10-31 20:56] LABS: Glucose - Point of Care 185 mg/dl (70-99)
[2024-10-31] MEDS: LYRICA 300 MG PO (21:39)
[2024-10-31] MEDS: LANTUS SC (21:44)
[2024-10-31] MEDS: LANTUS 0.19 UNITS SC (22:20)
[2024-10-31 23:17] VITALS: BP 111/54
[2024-11-01] VITALS (8 sets, daily range): BP systolic 104–152; BP diastolic 54–58; BMI 24.9
[2024-11-01 03:00] LABS: Glucose - Point of Care 87 mg/dl (70-99)
[2024-11-01 05:56] LABS: Glucose - Point of Care 63 mg/dl (70-99)
[2024-11-01] MEDS: DEXTROSE 50% SYRINGE 12.5 GRAMS IV (06:22)
[2024-11-01 06:43] LABS: Glucose - Point of Care 173 mg/dl (70-99)
[2024-11-01 06:53] LABS: Glucose - Point of Care 128 mg/dl (70-99)
[2024-11-01] MEDS: ZETIA 10 MG PO (07:32)
[2024-11-01] MEDS: ALDACTONE 25 MG PO (07:32)
[2024-11-01] MEDS: IMDUR (EXTENDED RELEASE) 30 MG PO (07:32)
[2024-11-01] MEDS: TOPROL XL 25 MG PO (07:32)
[2024-11-01] MEDS: SODIUM BICARBONATE 650 MG PO ×2 (07:32→20:01)
[2024-11-01] MEDS: APRESOLINE 25 MG PO ×2 (07:32→20:00)
[2024-11-01] MEDS: PLAVIX 75 MG PO (07:33)
[2024-11-01] MEDS: HEPARIN 5000 UNITS SC (07:33)
[2024-11-01] MEDS: PROTONIX 40 MG PO (07:33)
[2024-11-01] MEDS: SANTYL OINTMENT 1 APPLIC TOPICAL (07:35)
--- NOTE | 2024-11-01 09:00 | W.PN.HOSP.TC ---
Today's Communication/Plan
-
Cardiac cath
Assessment / Plan
Assessment / Plan
Physical exam:
General: Acutely ill. No acute distress
HEENT: Normocephalic, Atraumatic and Moist Mucous Membranes
Respiratory: Clear to Auscultation; Negative Wheezes, Rales or Rhonchi
Cardiac: Regular Rhythm and S1/S2
GI: Soft, Nontender and Nondistended
Musculoskeletal: No Clubbing, No Cyanosis and No Edema
Neuro: Awake, Alert and Oriented
Psych: Calm
A/P:
Acute systolic CHF with flash pulmonary edema presentation:
On hold IV Lasix 40 mg twice a day
Continues spironolactone
On hydralazine in light of CKD and added Imdur
She was on nitroglycerin upon admission
Started on Toprol XL
Echocardiogram showed EF 40 to 45%
Elevated troponin:
Depressed EF at mild inferolateral and inferior hypokinesis-defer to cardiology ischemic workup
On Plavix 75 mg p.o. daily, atorvastatin 80 mg p.o. every evening, ezetimibe 10 mg p.o. daily
Plan for cardiac catheterization-discussed with cardiology today
Acute hypoxic respiratory failure, POA:
Improved
Back on room air today
Continue to monitor respiratory status closely
Chronic kidney disease stage IV:
Nephrology consulted by cardiology
Avoid nephrotoxic
cont sodium bicarb
Monitor renal function
Nephrology recommended IVF pre and post cath
Hypertension:
On hydralazine, furosemide, spironolactone
Diabetes mellitus type 2:
Insulin sliding scale
Monitor blood sugars closely
DVT prophylaxis:
Heparin subcu
CODE STATUS:
Full code
Total time spent on today's encounter was 52 minutes which included time spent in counseling the patient/family regarding diagnosis and treatment plan as listed above, goals of care, and symptom management. Case was discussed with nursing staff,
specialists, and care coordinators/case management. All labs and imaging personally reviewed by me. Remainder the time spent in detailed review of previous records, lab data, imaging, and other medical provider documentation.
Anticipated Discharge: 24 - 48 hours
Subjective/Interval History
-
Date of Service: November 01, 2024
Patient denies chest pain or shortness of breath. Afebrile.
Objective Data
-
Labs:
Laboratory Results
11/01/24
08:29
WBC Pending
Hgb Pending
Hct Pending
Plt Count Pending
Sodium Pending
Potassium Pending
Chloride Pending
Carbon Dioxide Pending
BUN Pending
Creatinine Pending
Glucose Pending
Calcium Pending
Vital Signs:
Vital Signs
Temp Pulse Resp BP Pulse Ox
98.4 F 58 14 123/57 93
11/01/24 03:02 11/01/24 07:32 11/01/24 03:02 11/01/24 07:32 11/01/24 03:02
I&O
10/31/24 11/01/24 11/02/24
06:59 06:59 06:59
Intake Total 480 / 480 480 / 480
Balance 480 / 480 480 / 480
[2024-11-01 09:24] LABS: Hematocrit 31.2 % (37.0-47.0); Hemoglobin 10.3 g/dL (12.0-16.0); Mean Corpuscular Hgb 28.7 pg (27.0-31.0); Mean Corpuscular Volume 86.9 fL (81.0-99.0); Mean Platelet Volume 13.1 fL (7.4-10.4); Platelet Count 198 10^3/uL (130-400); Red Blood Cell Count 3.59 10^6/uL (4.20-5.40); Red Cell Dist. Width 15.2 % (11.5-14.5); White Blood Cell Count 8.9 10^3/uL (4.8-10.8)
[2024-11-01 10:03] LABS: Blood Urea Nitrogen 52 mg/dl (7-17); Calcium 8.7 mg/dl (8.4-10.2); Carbon Dioxide 30 mmol/L (22-30); Chloride 99 mmol/L (98-107); Estimated Creatinine Clearance 16 ml/min; Glucose 69 mg/dl (70-99); Sodium 139 mmol/L (135-145); eGFR 22.95
--- NOTE | 2024-11-01 10:29 | W.PN.NEPH.PH ---
Today's Communication / Plan
-
ivf pre and post cath
Assessment/Plan
-
74y F with PMH significant for hypertension, DM-II and chronic ILD s/p COVID who presents to ED complaining of SOB. And pulmonary edema on x-ray treated with IV diuretics with reduced ejection fraction from previous 40 to 45%
Patient has chronic kidney disease and follows with Dr. Baptitse
Renal consult for BERYL prevention
Baseline creatinine between 2 and 2.3
IMP:
Shortness of breath CHF
Hx of COVID-19
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
CKD stage 4 (baseline Cr� 2.5)-follows Dr Lim
IDDM with diabetic neuropathy and nephropathy
CAD hx of TN, hx of stents
HTN
DM
GERD
h/o ACEi-related angioedema
h/o Henoch-Schonlein purpura
Gastric bypass 2010
ALISHA, mild, with nocturnal hypoxemia
PAD, SFA stent Apr 2020
Plan:
500 nss precath and 500 post cath
Discussed with the patient aware of risk as she has had contrast in the past and is aware.
Cardiac cath today
Loop diuretic on hold
d/w medical nurse
-
-
Date of Service: November 01, 2024
CC / HPI / ROS
-
Chief Complaint:
cp
History of Present Illness:
ckd stable
Review of Systems:
no cp or sob
Labs
-
Labs:
WBC 8.9 10^3/uL (4.8-10.8) 11/01/24 08:29
RBC 3.59 10^6/uL (4.20-5.40) L 11/01/24 08:29
Hgb 10.3 g/dL (12.0-16.0) L 11/01/24 08:29
Hct 31.2 % (37.0-47.0) L 11/01/24 08:29
Plt Count 198 10^3/uL (130-400) D 11/01/24 08:
Sodium 139 mmol/L (135-145) 11/01/24 08:29
Potassium 4.0 mmol/L (3.5-5.1) 11/01/24 08:
Chloride 99 mmol/L (98-107) 11/01/24 08:
Carbon Dioxide 30 mmol/L (22-30) 11/01/24 08:
BUN 52 mg/dl (7-17) H 11/01/24 08:
Creatinine 2.2 mg/dL (0.6-1.0) H 11/01/24 08:
eGFR 22.95 11/01/24 08:
Glucose 69 mg/dl (70-99) L 11/01/24 08:
Calcium 8.7 mg/dl (8.4-10.2) 11/01/24 08:
Zvl-B-Rjdkbiorcpq Pept 8600 pg/ml 10/28/24 22:22
Albumin 4.0 g/dl (3.5-5.0) 10/28/24 22:22
Physical Exam
-
Vital Signs:
Vital Signs
Temp Pulse Resp BP Pulse Ox
98.0 F 58 20 123/57 97
11/01/24 07:30 11/01/24 07:32 11/01/24 07:30 11/01/24 07:32 11/01/24 07:30
Cardiovascular:: Regular rate and rhythm
Respiratory:: Bilateral: Coarse
Lung Excursion:: Normal
Abdomen:: Nontender and Soft
Bowel Sounds:: Normal
Extremity Edema:: None: Bilateral:
[2024-11-01] MEDS: NSS 500 IV ×2 (10:59→12:12)
--- NOTE | 2024-11-01 11:43 | CM ---
Chart reviewed and patient is for possible cath today, plan is to home with spouse when stable.
Plan; Home with spouse when stable.
--- NOTE | 2024-11-01 11:49 | CONSULT.CT ---
Consultation
-
Date/Time Consultation Requested: 11/01/24
Date/Time Consultation Performed: 11:30
Requesting Provider: Christina Castellanos
Performing Provider: James Gonzalez
Reason for Consultation: CABG
Patient History
Physicians
Family Physician: Isaak Carlton
Outpatient Salesman/Owner: Dr. VICKY Danielson
Inpatient Salesman/Owner: Dr. VICKY Danielson
History of Present Illness
74 year old female with PMH of CAD (s/p multiple MATT), PAD, HFpEF (45%), HTN, HLD, ILD s/p COVID, T2DM (11.8%), CKD (baseline Cr 2-2.3), iron-deficiency anemia (Hgb 10-11), and glaucoma who presented to ED via EMS with reports of SOB. Prior to EMS
arrival, Ms Luong was noted to have increased SOB at rest following dinner. She was placed on BiPAP and transferred to the ED. CXR showed pulmonary edema in which she was diuresed. CT Chest was negative for PE. EKG showed SR with ST and T wave
abnormality with prolonged QTc with troponin of 0.263 (peak 0.705) and BNP 8600. She ruled in for acute hypoxic respiratory failure secondary to acute on chronic heart failure exacerbation. Cardiology was consulted for elevated troponin and HF
exacerbation. TTE obtained and showed EF 40-45%, inferior and inferolateral hypokinesis, mild septal hypertrophy, and no VHD, which was new from prior TTE in 2020. She was referred for LHC on 11/01/24 which revealed multivessel disease. CTS was
consulted in consideration of surgical revascularization.
Past Medical History
Past Medical History: Other
CAD
s/p 2.5 mm Xience OM1 PCI 01/20/21
s/p Xience prox and overlapping previously placed distal OM-1 05/17/2019
s/p 2.5 mm Xience OM1 PCI 02/12/2019 PAD
s/p R common femoral endarterectomy w/ patch angioplasty and covered R iliac stent 01/2024
s/p right SFA angioplasty and stent 04/2020 h/o COVID 19 w/ residual parenchymal scarring
Chronic HFpEF
HTN
HLD
DM2 (IDDM)
CKD 4
h/o Henoch-Schonle purpura
Glaucoma
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
h/o angioedema on MARCELL inhibitors
Aortic atherosclerosis
h/o orthostasis on Terazosin
h/o TIA 2016
Iron deficiency anemia
Past Surgical History
Past Surgical History: Orthopedic (L Hip Fx s/p replacement)
h/o gastric bypass 2010
s/p 2.5 mm Xience OM1 PCI 01/20/21
s/p Xience prox and overlapping previously placed distal OM-1 05/17/2019
s/p 2.5 mm Xience OM1 PCI 02/12/2019 PAD
s/p R common femoral endarterectomy w/ patch angioplasty and covered R iliac stent 01/2024
s/p right SFA angioplasty and stent 04/2020 h/o COVID 19 w/ residual parenchymal scarring
MATERIAL DAMAGE APPRAISER for compression and dissected 2016
Family History
Family Medical History: CAD
Social History
Alcohol: Occasional
Drug: None
Tobacco: Non-Smoker
Personal:
Living: With Spouse
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
Allergies
Allergy/AdvReac Type Severity Reaction Status Date / Time
MARCELL Inhibitors Allergy Swelling/AN Verified 10/28/24 22:22
[Marcell Inhibitors] GIOEDEMA
chamomile flower Allergy Rash Verified 10/28/24 22:22
Sulfa (Sulfonamide Allergy Rash Verified 10/28/24 22:22
Antibiotics)
sulfite Allergy VASCULITIS Verified 10/28/24 22:22
Home Medications
�Medication �Instructions �Recorded �Confirmed �Type
clopidogrel 75 mg tablet (Plavix) 75 mg PO DAILY Blood Clot 06/19/24 10/29/24 History
Prevention/Tx
furosemide 40 mg tablet (Lasix) 40 mg PO DAILY Fluid 06/19/24 10/29/24 History
Retention/Swelling
ezetimibe 10 mg tablet 10 mg PO DAILY cholesterol #0 tabs 07/02/24 10/29/24 Rx
febuxostat 40 mg tablet 40 mg PO HS elevated uric acid #0 07/02/24 10/29/24 Rx
tabs
insulin aspar prot-insulin aspart 2 - 8 unit SC AC 08/09/24 10/29/24 History
100 unit/mL (70-30) subcutaneous
pen (Novolog Mix 70-30FlexPen
U-100)
atorvastatin 80 mg tablet 80 mg PO QPM cholesterol 10/29/24 10/29/24 History
cholecalciferol (vitamin D3) 50 50 mcg PO DAILY Supplement 10/29/24 10/29/24 History
mcg (2,000 unit) tablet (Vitamin
D3)
coQ10 (ubiquinol) 200 mg capsule 400 mg PO DAILY High Cholesterol 10/29/24 10/29/24 History
hydralazine 25 mg tablet 25 mg PO BID 10/29/24 10/29/24 History
insulin glargine 100 unit/mL (3 38 unit SC HS 10/29/24 10/29/24 History
mL) subcutaneous pen (Basaglar
KwikPen U-100 Insulin)
pantoprazole 40 mg tablet,delayed 40 mg PO DAILY 10/29/24 10/29/24 History
release (Protonix)
pregabalin 150 mg capsule 300 mg PO HS diabetic neuropathy 10/29/24 10/29/24 History
sodium bicarbonate 650 mg tablet 650 mg PO BID 10/29/24 10/29/24 History
spironolactone 25 mg tablet 25 mg PO DAILY 10/29/24 10/29/24 History
tramadol 50 mg tablet 50 mg PO Q6HPRN PRN moderate pains 10/29/24 10/29/24 History
Review of Systems
-
History Source: Patient
General: Reports No Symptoms
HEENT: Reports No Symptoms
Respiratory: Reports WOODRUFF
Cardiac: Reports No Symptoms
Abdomen/GI: Reports Ulcers
: Reports No Symptoms
Musculoskeletal: Reports Other (Ambulatory dysfunction with use of RW)
Skin: Reports Other (non-healing wound on LLE)
Neurological: Reports No Symptoms
Vascular: Reports No Symptoms
Physical Exam
Vital Signs
Temp 98.0 F 11/01/24 07:30
Temp route: Oral 11/01/24 07:30
Pulse 58 11/01/24 07:32
Rhythm: Normal sinus rhythm 11/01/24 08:00
With- Right Bundle Branch Block 11/01/24 08:00
Resp Rate 20 11/01/24 07:30
Blood pressure 123/57 11/01/24 07:32
Blood pressure extremity used: Left upper arm 11/01/24 07:30
Position: Lying 11/01/24 07:30
MAP (cuff-Mary Monitor) 83 10/30/24 16:37
MAP 86 10/29/24 15:39
SaO2 97 11/01/24 07:30
Nasal Cannula flow liters per minute 2 10/31/24 23:17
Oxygen Mode of Delivery Room air 11/01/24 07:30
Flow liters per minute # 3 10/30/24 08:00
Can the patient verbally communicate their pain? Yes 11/01/24 08:00
Actual Weight 57.861 kg 11/01/24 06:00
Body Mass Index (BMI) 24.9 11/01/24 06:00
Labs
11/01/24 08:29
11/01/24 08:29
PT 14.0 Sec (11.4-14.6) 10/28/24 22:22
Hemoglobin A1c 11.8 % (4.0-5.6) H 10/29/24 03:26
Troponin I 0.649 ng/ml H* 10/29/24 15:40
Amm-Y-Aqoqyllvpsz Pept 8600 pg/ml 10/28/24 22:22
Exam
General: Well Developed, Well Nourished, No Apparent Distress and Comfortable
HEENT: Normocephalic, Moist Mucous Membranes, Atraumatic, PERRLA and EOMI
Respiratory: Crackles (coarse B/L BS; L > R)
Cardiac: S1/S2 and Regular Rhythm
GI: Soft, Non Tender, Non Distended and Normal Bowel Sounds
Skin: Warm, Dry and Other (slow-healing wound on distal LLE)
Neuro: Awake, Alert, Oriented, AO x 3 and No Motor Deficits
Extremities: Pulses (+1 PT B/L, +1 DP B/L, Cap refill > 3 seconds on LLE)
Psych: Calm
Assessment / Plan
-
74-year-old female with PHM as listed above who was found to have MVD following C 11/01/24 requiring CTS consultation.
#CAD
-Patient's case will be discussed with attending physician. Further details regarding surgical timing intervention will be determined after attending physicians full evaluation.
-Routine preoperative cardiothoracic surgery orders will be initiated.
-STS risk stratification score will be calculated after preoperative testing is complete
-Plavix placed on hold, last dose 11/01/24 in AM.
>> Spoke with Cardiology team regarding initiation of Heparin gtt.
[2024-11-01 12:06] LABS: Glucose - Point of Care 61 mg/dl (70-99)
--- NOTE | 2024-11-01 13:03 | ITS.CL.CATH ---
Mathematics Professor - Catheterization
Cardiac Catheterization
Procedure Report:
LEFT HEART CATHETERIZATION
Date of Procedure: November 01, 2024
Referring: Dr. Dangelo Beavers
PROCEDURES:
1. Left heart catheterization with coronary angiography
INDICATION: This is a 74-year-old diabetic with a prior history of coronary artery disease and multiple overlapping stents in the first obtuse marginal branch dating back to 2019. She has a history of peripheral vascular disease with right common
femoral endarterectomy with patch angioplasty and covered right iliac stent, hypertension, hyperlipidemia, and poorly controlled diabetes. She presented to [facility] for evaluation of shortness of breath and occasional chest tightness
which occurred at rest after eating. No real exertional symptoms. Her troponin was found to be mildly elevated peaking at 0.705 ng/mL. She is now referred for coronary angiography.
ACCESS: Right radial artery, 6 Somali sheath (Note: 5 Somali catheters were required given severe pain and spasm with catheter manipulation)
HEMODYNAMICS : (mmHg)
AO (s/d) : 108/47, 68
LV (s/d) : 100/8
LVEDP : 10
CORONARY FINDINGS
DOMINANCE: Right
LEFT MAIN: 60% distal left main stenosis
LEFT ANTERIOR DESCENDIN% ostial LAD with diffuse noncritical luminal irregularities throughout the mid to distal vessel. Several small diagonal branches arise from the mid LAD.
CIRCUMFLEX: Hazy 80% ostial circumflex stenosis. There are stents in OM1 with moderate diffuse in-stent restenosis. OM1 is a moderate caliber vessel that bifurcates into 2 small caliber daughter branches distally beyond the stented segment. The
larger daughter branch has a 70% stenosis. The AV circumflex gives rise to several additional small obtuse marginal branches
RIGHT CORONARY ARTERY: The right coronary artery is a dominant vessel with a 60-70% ostial stenosis. Pressure dampening occurred with engagement of a 5 Somali diagnostic catheter. The mid to distal right coronary artery has only minor
irregularities but no focal high-grade obstructive stenosis
VENTRICULOGRAPHY: Not done
SEDATION: 28 minutes of procedural sedation was utilized. An independent medical record librarians teacher was present to assist with and help manage the patient's level of consciousness and physiologic status.
RADIATION SUMMARY: Fluoro Time (min): 3.1, Dose (mGy): 167, DAP (Gy.cm2) : 10.1
Closure Device: TR band
CONCLUSIONS
1. 60% distal left main stenosis and hazy 80% ostial circumflex stenosis. Moderate coronary disease at the origin of the LAD. 60-70% ostial stenosis in dominant RCA with pressure dampening upon engagement of a 5 Somali diagnostic catheter
RECOMMENDATIONS
1. Consult CT surgery given multivessel coronary artery disease, ostial circumflex stenosis with distal left main and proximal LAD atherosclerosis. Additionally, patient is diabetic and may have benefit from surgical revascularization
Copy to: Dr. Melvin Danielson
[2024-11-01 16:43] LABS: Glucose - Point of Care 408 mg/dl (70-99)
[2024-11-01 17:26] LABS: Glucose 369 mg/dl (70-99)
[2024-11-01] MEDS: NOVOLOG FLEXPEN-MODERATE RESISTANCE 9 UNITS SC (18:11)
[2024-11-01] MEDS: LIPITOR 80 MG PO (18:12)
[2024-11-01 21:27] LABS: Glucose - Point of Care 160 mg/dl (70-99)
--- NOTE | 2024-11-01 21:32 | PTCARENOTE ---
Pt HS blood sugar HS 160. Pt stated she takes half of long-acting insulin at bedtime if blood sugar at that range. CRANE CHASER made aware that patient blood sugar has been fluctuating all day. CRANE CHASER notified this RN to not administer Lantus at this time.
[2024-11-01] MEDS: LANTUS SC (21:34)
[2024-11-01] MEDS: LYRICA 300 MG PO (21:36)
[2024-11-02 02:49] LABS: Glucose - Point of Care 72 mg/dl (70-99)
[2024-11-02 03:45] VITALS: BP 127/53
[2024-11-02 04:47] LABS: B.E. 1.6 mmol/L; HCO3 25.8 mmol/L (21-28); O2 Saturation % 98.5 % (94-98); PCO2 38 mmHg (32-35); PO2 82 mmHg (83-108); pH 7.44 (7.35-7.45)
[2024-11-02 06:00] VITALS: BMI 25.2
[2024-11-02 07:00] VITALS: BP 104/47
[2024-11-02 07:39] LABS: APTT 32.4 Sec (23.4-35.0); INR 1.03
[2024-11-02 07:48] LABS: Glucose - Point of Care 71 mg/dl (70-99)
[2024-11-02 07:50] LABS: Hematocrit 29.7 % (37.0-47.0); Hemoglobin 9.7 g/dL (12.0-16.0); Mean Corp Hgb Conc. 32.7 g/dL (33.0-37.0); Mean Corpuscular Hgb 28.6 pg (27.0-31.0); Mean Corpuscular Volume 87.6 fL (81.0-99.0); Mean Platelet Volume 13.1 fL (7.4-10.4); Platelet Count 185 10^3/uL (130-400); Red Blood Cell Count 3.39 10^6/uL (4.20-5.40); Red Cell Dist. Width 15.1 % (11.5-14.5); White Blood Cell Count 7.2 10^3/uL (4.8-10.8)
[2024-11-02 08:01] LABS: ALT (SGPT) 25 U/L (0-35); AST (SGOT) 28 U/L (14-36); Albumin 3.3 g/dl (3.5-5.0); Alkaline Phosphatase 101 U/L (38-126); Blood Urea Nitrogen 49 mg/dl (7-17); Calcium 8.2 mg/dl (8.4-10.2); Carbon Dioxide 29 mmol/L (22-30); Chloride 103 mmol/L (98-107); Direct Bilirubin 0.3 mg/dl (0.0-0.4); Estimated Creatinine Clearance 17 ml/min; Glucose 66 mg/dl (70-99); Potassium 4.5 mmol/L (3.5-5.1); Sodium 140 mmol/L (135-145); Total Bilirubin 0.6 mg/dl (0.2-1.3); Total Protein 5.3 g/dl (6.3-8.2); eGFR 24.27
[2024-11-02] MEDS: NOVOLOG FLEXPEN-MODERATE RESISTANCE SC (08:03)
[2024-11-02] MEDS: LOW STRENGTH ASPIRIN 81 MG PO (08:04)
[2024-11-02] MEDS: SANTYL OINTMENT 1 APPLIC TOPICAL (08:04)
[2024-11-02] MEDS: PROTONIX 40 MG PO (08:04)
[2024-11-02] MEDS: ZETIA 10 MG PO (08:04)
[2024-11-02] MEDS: SODIUM BICARBONATE 650 MG PO ×2 (08:04→19:30)
[2024-11-02] MEDS: ALDACTONE PO (08:06)
[2024-11-02] MEDS: IMDUR (EXTENDED RELEASE) 30 MG PO (08:06)
[2024-11-02] MEDS: TOPROL XL 25 MG PO (08:07)
[2024-11-02] MEDS: APRESOLINE PO (08:12)
--- NOTE | 2024-11-02 09:30 | W.PN.HOSP.TC ---
Today's Communication/Plan
-
Anti-ischemic regimen. Discharge planning
Assessment / Plan
Assessment / Plan
Physical exam:
General: Acutely ill. No acute distress
HEENT: Normocephalic, Atraumatic and Moist Mucous Membranes
Respiratory: Clear to Auscultation; Negative Wheezes, Rales or Rhonchi
Cardiac: Regular Rhythm and S1/S2
GI: Soft, Nontender and Nondistended
Musculoskeletal: No Clubbing, No Cyanosis and No Edema
Neuro: Awake, Alert and Oriented
Psych: Calm
A/P:
Acute systolic CHF with flash pulmonary edema presentation:
On hold IV Lasix 40 mg twice a day
Continues spironolactone
On hydralazine in light of CKD and added Imdur
She was on nitroglycerin upon admission
Started on Toprol XL
Echocardiogram showed EF 40 to 45%
Plan to discharge once cleared by cardiology
Elevated troponin:
Depressed EF at mild inferolateral and inferior hypokinesis-defer to cardiology ischemic workup
On Plavix 75 mg p.o. daily, atorvastatin 80 mg p.o. every evening, ezetimibe 10 mg p.o. daily-holding Plavix. Started on heparin drip yesterday but patient declined.
Cardiac cath with obstructive CAD--CT surgery consulted. Plan for bypass surgery but patient weighing her options
Plan to discharge once cleared by cardiology
Acute hypoxic respiratory failure, POA:
Improved
Back on room air today
Continue to monitor respiratory status closely
Chronic kidney disease stage IV:
Nephrology consulted by cardiology
Avoid nephrotoxic
cont sodium bicarb
Monitor renal function
Nephrology recommended IVF pre and post cath
Hypertension:
On hydralazine, furosemide, spironolactone
Diabetes mellitus type 2:
Insulin sliding scale
Monitor blood sugars closely
DVT prophylaxis:
Heparin subcu
CODE STATUS:
Full code
Anticipated Discharge: Within 24 hours
Subjective/Interval History
-
Date of Service: November 02, 2024
Patient denies any chest pain or shortness of breath.
Objective Data
-
Labs:
Laboratory Results
11/01/24 11/02/24 11/02/24
23:00 04:21 07:11
WBC 7.2
Hgb 9.7 L
Hct 29.7 L
Plt Count 185
PT 14.0
INR 1.03
APTT Cancelled 32.4
HCO3 25.8
Sodium 140
Potassium 4.5
Chloride 103
Carbon Dioxide 29
BUN 49 H
Creatinine 2.1 H
Glucose 66 L
Calcium 8.2 L
Total Bilirubin 0.6
AST 28
ALT 25
Alkaline Phosphatase 101
Vital Signs:
Vital Signs
Temp Pulse Resp BP Pulse Ox
97.9 F 58 14 104/67 100
11/02/24 07:00 11/02/24 07:00 11/02/24 07:00 11/02/24 08:06 11/02/24 07:00
I&O
11/01/24 11/02/24 11/03/24
06:59 06:59 06:59
Intake Total 1200 / 1200
Balance 1200 / 1200
[2024-11-02 11:00] VITALS: BP 144/65
--- NOTE | 2024-11-02 11:12 | VNURNOTE ---
Home Health Liaison met with patient at bedside to discuss [facility] nurse/therapy, visits, schedule and homebound status. Patient is agreeable and understands that visits at home will be 2-3 x per week to assess and teach medical management. Patient is
familiar with [facility], she has had us in the past. She confirms that she has a scale at home. She is aware that [facility] will contact them for start of care in 1-2 days after discharge from .
[facility] referral completed in [facility].
[2024-11-02 11:41] LABS: Glucose - Point of Care 300 mg/dl (70-99)
[2024-11-02] MEDS: NOVOLOG FLEXPEN-MODERATE RESISTANCE 7 UNITS SC (12:06)
--- NOTE | 2024-11-02 12:14 | W.PN.CARDCBS ---
Addendum entered and electronically signed by Melvin Danielson MD 11/02/24 16:06:
74-year-old woman with longstanding CAD and prior circumflex and OM PCI's January and April 2019 as well as December 2020. Admitted on October 28 with chest discomfort, troponin of 0.4 and proBNP 8600. Cardiac catheterization November 01 showed 60% distal left
main, 40% ostial LAD, hazy 80% ostial circumflex, moderate diffuse in-stent restenosis OM1 with daughter branch of 70%, RCA with 60 to 70% ostial stenosis, LV gram
PMH/PSH: PAD with right common femoral endarterectomy and patch angioplasty January 2024, covered right iliac stent, right SFA SET AND EXHIBIT DESIGNER/stents 2023, HFpEF, hypertension, hyperlipidemia, longstanding type 2 diabetes, CKD 4, and
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
Current meds: Spironolactone 25 mg a day, bicarb, pantoprazole, hydralazine 25 mg twice daily, Lantus insulin, Lyrica, atorvastatin 80 mg a day, ezetimibe 10 mg a day, furosemide 40 mg IV twice daily on hold, metoprolol ER 25 mg daily, isosorbide
mononitrate 30 mg a day, IV heparin, aspirin
129/57, pulse 64, weight is 58.5 kg, no physical distress but frightened and upset, head and neck exam unremarkable, lungs are clear, regular rate and rhythm, JVD okay, radial puncture site okay, which edema
Hemoglobin is 9.7, platelets of 185, BUN and creatinine are 49 and 2.1, potassium is 4.5
Impression:
Presented w/ sudden onset SOB
Acute on chronic HFpEF
Elevated troponin, possible ACS
Hyperglycemia
CAD
s/p 2.5 mm Xience OM1 PCI 01/20/21
s/p Xience prox and overlapping previously placed distal OM-1 05/17/2019
s/p 2.5 mm Xience OM1 PCI 02/12/2019 PAD
s/p R common femoral endarterectomy w/ patch angioplasty and covered R iliac stent 01/2024
s/p right SFA angioplasty and stent 04/2020 h/o COVID 19 w/ residual parenchymal scarring
HTN
HLD
DM2
CKD 4
h/o Henoch-Schonle purpura
Glaucoma
Celiac compression syndrome s/p SET AND EXHIBIT DESIGNER for compression and dissected 2016
h/o gastric bypass 2010
h/o angioedema on ZAY inhibitors
Aortic atherosclerosis
h/o orthostasis on Terazosin
h/o TIA 2016
Iron deficiency anemia
Plan:
She seems stable at the moment, but with left main and three-vessel disease with underlying CKD.
CT surgical evaluation progress.
Will discuss with CT surgery, hold Plavix in a.m. and then begin heparin if surgery to be performed in hospital.
Renal function is stable. Appreciate help of nephrology.
Further management to be made based upon opinion of CT surgery.
Discussed at length with patient.
Original Note:
Today's Communication / Plan
-
Lasix remains on hold, nephrology following. Creat down to 2.1 this AM
MV CAD by cath 11/01. Continue aspirin, plavix
Continue imdur, toprol, spironolactone, hydralazine
CT surgery evaluation
Cardiology follow up being arranged.
Impression / Plan
-
PCP: Dr. Carlton
Final Tester: Dr. VICKY Danielson
Impression:
Presented w/ sudden onset SOB
Acute on chronic HFpEF
Elevated troponin, possible ACS
Hyperglycemia
CAD
s/p 2.5 mm Xience OM1 PCI 01/20/21
s/p Xience prox and overlapping previously placed distal OM-1 05/17/2019
s/p 2.5 mm Xience OM1 PCI 02/12/2019
PAD
s/p R common femoral endarterectomy w/ patch angioplasty and covered R iliac stent 01/2024
s/p right SFA angioplasty and stent 04/2020
h/o COVID 19 w/ residual parenchymal scarring
HTN
HLD
DM2
CKD 4
h/o Henoch-Schonle purpura
Glaucoma
Celiac compression syndrome s/p SET AND EXHIBIT DESIGNER for compression and dissected 2016
h/o gastric bypass 2010
h/o angioedema on ZAY inhibitors
Aortic atherosclerosis
h/o orthostasis on Terazosin
h/o TIA 2016
Iron deficiency anemia
Echo 08/06/2020: EF 64%. Mild LVH. Normal RV. Mild MAC with mild MR. No AI or . Trace TR. PAP 29 mmHg
Echo 01/19/2021: EF 55-60%, stage I diastolic dysfunction, trace MR, trace TR, PAP 21 mmHg
Echo 10/29/2024: EF 40-45%, Stage I diastolic dysfunction, mild inferolateral and inferior hypokinesis
Plan:
-Presented with sudden onset SOB. Admitted with acute heart failure and elevated troponin.
-Diuresed with IV lasix 40mg BID. Weight down 8lbs this admission, down to 129 lbs 11/02.
-Creat bumped to 2.3 on 10/31 and lasix held. Creat downtrending, down to 2.1 11/02. Nephrology following.
-Echo 10/29 noted EF down to 40-45% as above.
-With new CM and elevated troponin which peaked at 0.705, underwent LHC 11/01/2024 and was noted to have MVCAD.
-CT surgery consulted to consider CABG. Await recommendations.
-Continue medical therapy for now. Continue aspirin, plavix.
-Continue Toprol, Imdur, Hydralazine, spironolactone.
-Not on ZAY/ARB due to h/o angioedema.
-Continue lipitor 80mg daily and zetia 10mg dialy
-Patient notes she is for possible discharge today, will arrange cardiology follow up visit.
HPI: Steph is a 74 year old female with PMH of CAD, PAD, HFpEF, HTN, HLD, DM2, CKD, iron deficiency anemia, and glaucoma. Presented to [facility] ER with sudden onset shortness of breath. She was seen in the cardiology office on 10/22/2024 for evaluation
of intermittent chest discomfort which came on at rest following dinner. She had no exertional symptoms. She was started on pantoprazole at the time and reported resolution of her chest pain with this. Last night, after dinner she reported sudden
onset shortness of breath while sitting watching TV. EMS was called and she was started on BiPAP. On arrival to ER, she was noted to be significantly hypertensive and presented on IV nitroglycerin. Chest x-ray consistent with severe pulmonary
edema. She was started on IV Lasix and symptomatically has been improving. CT of chest negative for PE. Cardiology consulted for evaluation given elevated troponin and acute heart failure exacerbation. She reports she has no complaints. Denies
any chest pain and breathing is stable on high flow O2.
Progress Note - Final Tester
Subjective
Date of Service: November 02, 2024
No complaints. Denies any chest pain or SOB.
Objective
Labs:
11/02/24 07:11
11/02/24 07:11
Labs
Hgb 9.7 g/dL (12.0-16.0) L 11/02/24 07:11
Hct 29.7 % (37.0-47.0) L 11/02/24 07:11
Plt Count 185 10^3/uL (130-400) 11/02/24 07:11
PT 14.0 Sec (11.4-14.6) 11/02/24 07:11
INR 1.03 11/02/24 07:11
APTT 32.4 Sec (23.4-35.0) 11/02/24 07:11
Sodium 140 mmol/L (135-145) 11/02/24 07:11
Potassium 4.5 mmol/L (3.5-5.1) 11/02/24 07:11
BUN 49 mg/dl (7-17) H 11/02/24 07:11
Creatinine 2.1 mg/dL (0.6-1.0) H 11/02/24 07:11
Glucose 66 mg/dl (70-99) L 11/02/24 07:11
Vital Signs and I&O:
Vital Signs
Temp Pulse Resp BP Pulse Ox
97.9 F 60 16 144/65 99
11/02/24 11:00 11/02/24 11:00 11/02/24 11:00 11/02/24 11:00 11/02/24 11:00
Vital Signs
Temp Pulse Resp BP Pulse Ox
97.9 F 60 16 144/65 99
11/02/24 11:00 11/02/24 11:00 11/02/24 11:00 11/02/24 11:00 11/02/24 11:00
Intake & Output
10/31/24 11/01/24 11/02/24 11/03/24
06:59 06:59 06:59 06:59
Intake Total 480 / 480 1200 / 1200
Balance 480 / 480 1200 / 1200
Physical Exam
Physical Exam
GEN: No distress, awake, alert, oriented x3
HEENT: supple, anicteric, mmm
LUNGS: CTA b/l, no wheezes/rales
CV: Reg, S1/S2, no murmur
EXT: No clubbing, cyanosis, or edema
NEURO: Gross non-focal
SKIN: Warm, dry, no rash
--- NOTE | 2024-11-02 12:55 | W.PN.NEPH.PH ---
Today's Communication / Plan
-
BMP in the morning
Continue to hold diuretics at least another 24 hours
Assessment/Plan
-
74y F with PMH significant for hypertension, DM-II and chronic ILD s/p COVID who presents to ED complaining of SOB. And pulmonary edema on x-ray treated with IV diuretics with reduced ejection fraction from previous 40 to 45%
Patient has chronic kidney disease and follows with Dr. Baptiste
Renal consult for BERYL prevention
Baseline creatinine between 2 and 2.3
IMP:
Shortness of breath CHF
Hx of COVID-19
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
CKD stage 4 (baseline Cr� 2.5)-follows Dr Lim
IDDM with diabetic neuropathy and nephropathy
CAD hx of [place], hx of stents
HTN
DM
GERD
h/o ACEi-related angioedema
h/o Henoch-Schonlein purpura
Gastric bypass 2010
ALISHA, mild, with nocturnal hypoxemia
PAD, SFA stent Apr 2020
Plan:
Discussed with the patient aware of risk as she has had contrast in the past and is aware.
Cardiac cath 11/01 showing multivessel disease pending CT surgery consult
Loop diuretic on hold
Creatinine remains at her baseline postprocedure
Discussed with the patient as to the moderate risk for dialysis pending potential cardiac bypass
Patient is uncertain about proceeding and will await CT surgery and discussion with her family
Continue to hold diuretics at least another 24 hours monitor weights as they remain stable
-
-
Date of Service: November 02, 2024
CC / HPI / ROS
-
Chief Complaint:
cp
History of Present Illness:
ckd stable > CAD status post cardiac cath multivessel disease
Review of Systems:
no cp or sob
Labs
-
Labs:
WBC 7.2 10^3/uL (4.8-10.8) 11/02/24 07:11
RBC 3.39 10^6/uL (4.20-5.40) L 11/02/24 07:11
Hgb 9.7 g/dL (12.0-16.0) L 11/02/24 07:11
Hct 29.7 % (37.0-47.0) L 11/02/24 07:11
Plt Count 185 10^3/uL (130-400) 11/02/24 07:11
Sodium 140 mmol/L (135-145) 11/02/24 07:11
Potassium 4.5 mmol/L (3.5-5.1) 11/02/24 07:11
Chloride 103 mmol/L (98-107) 11/02/24 07:11
Carbon Dioxide 29 mmol/L (22-30) 11/02/24 07:11
BUN 49 mg/dl (7-17) H 11/02/24 07:11
Creatinine 2.1 mg/dL (0.6-1.0) H 11/02/24 07:11
eGFR 24.27 11/02/24 07:11
Glucose 66 mg/dl (70-99) L 11/02/24 07:11
Calcium 8.2 mg/dl (8.4-10.2) L 11/02/24 07:11
Qep-U-Jbspttjpvzx Pept 8600 pg/ml 10/28/24 22:22
Albumin 3.3 g/dl (3.5-5.0) L 11/02/24 07:11
Physical Exam
-
Vital Signs:
Vital Signs
Temp Pulse Resp BP Pulse Ox
97.9 F 60 16 144/65 99
11/02/24 11:00 11/02/24 11:00 11/02/24 11:00 11/02/24 11:00 11/02/24 11:00
Cardiovascular:: Regular rate and rhythm
Respiratory:: Bilateral: CTA
Lung Excursion:: Normal
Abdomen:: Nontender and Soft
Bowel Sounds:: Normal
Extremity Edema:: None: Bilateral:
--- NOTE | 2024-11-02 14:06 | CM ---
Chart reviewed and plan is to home with [facility] when stable.
Plan; Home with [facility] when stable.
[2024-11-02 14:59] VITALS: BP 129/57
[2024-11-02 16:40] LABS: Glucose - Point of Care 242 mg/dl (70-99)
--- NOTE | 2024-11-02 16:58 | W.PN.UPDATE ---
Addendum entered and electronically signed by TERRI Vaca 11/02/24 17:02:
STS Calc:
Procedure Type:�Isolated CABG
Perioperative Outcome Estimate %
Operative Mortality 8.43%
Morbidity & Mortality 31.2%
Stroke 6.65%
Renal Failure 15.2%
Reoperation 3.99%
Prolonged Ventilation 14.9%
Deep Sternal Wound Infection 0.636%
Long Hospital Stay (>14 days) 19.2%
Short Hospital Stay (<6 days)* 14.2%
Clinical Summary
Planned Surgery: Isolated CABG, Urgent, First cardiovascular surgery
Demographics: 74 year old, female, 57.8kg, 152cm, BMI: 25 kg/m�
Lab Values: Creatinine: 2.1 mg/dL, Hematocrit: 29.7%, WBC Count: 7.2 10�/�L, Platelet Count: 091932 cells/�L
PreOp Medications: Insulin diabetes control
Substance Abuse: Never smoker, Alcohol use: <=1 drink/week
Risk Factors / Comorbidities: Insulin-dependent Diabetes Mellitus, Hypertension, Family Hx of CAD
Pulmonary RF: Severity Unknown CLD
Vascular RF: Peripheral Artery Disease, RT Carotid Sten. >=80%, LT Carotid Sten. >=80%
Cardiac Status: Chronic heart failure, NYHA Class III, Ejection Fraction = 43%
Coronary Artery Disease: 3 vessels diseased, Left Main Stenosis >=50%, Non-ST Elevation CT, CT: 1 to 7 Days
Valve Disease: Mild MR
Original Note:
Update Note
Progress Note Update
Last dose of plavix yesterday. Patient's history is pending attending's review. Continue heparin infusion, CTA head and neck pending, PFTs pending, continue surgical optimization. If patient is deemed a surgical candidate, tentative surgical date
will be on Thursday November 07, 2024.
[2024-11-02] MEDS: NOVOLOG FLEXPEN-MODERATE RESISTANCE 3 UNITS SC (17:39)
[2024-11-02] MEDS: LIPITOR 80 MG PO (17:39)
[2024-11-02] MEDS: HEPARIN 25000 UNITS/250 ML IV (17:40)
[2024-11-02 19:19] VITALS: BP 145/63
[2024-11-02] MEDS: APRESOLINE 25 MG PO (19:30)
[2024-11-02 21:14] LABS: Glucose - Point of Care 367 mg/dl (70-99)
[2024-11-02] MEDS: LYRICA 300 MG PO (21:51)
[2024-11-02] MEDS: LANTUS 0.38 UNITS SC (21:51)
[2024-11-02 23:28] VITALS: BP 127/52
[2024-11-02 23:58] LABS: APTT 56.2 Sec (23.4-35.0)
[2024-11-03 03:33] VITALS: BP 128/58
[2024-11-03 05:09] VITALS: BMI 23.9
[2024-11-03 07:27] LABS: Glucose - Point of Care 87 mg/dl (70-99)
[2024-11-03] MEDS: NOVOLOG FLEXPEN-MODERATE RESISTANCE SC ×2 (07:29→11:51)
[2024-11-03 07:58] VITALS: BP 152/66
[2024-11-03] MEDS: SANTYL OINTMENT 1 APPLIC TOPICAL (08:22)
[2024-11-03] MEDS: ZETIA 10 MG PO (08:23)
[2024-11-03] MEDS: ALDACTONE 25 MG PO (08:23)
[2024-11-03] MEDS: LOW STRENGTH ASPIRIN 81 MG PO (08:23)
[2024-11-03] MEDS: SODIUM BICARBONATE 650 MG PO ×2 (08:23→19:57)
[2024-11-03] MEDS: TOPROL XL 25 MG PO (08:23)
[2024-11-03] MEDS: PROTONIX 40 MG PO (08:23)
[2024-11-03] MEDS: APRESOLINE 25 MG PO ×2 (08:23→19:57)
[2024-11-03] MEDS: IMDUR (EXTENDED RELEASE) 30 MG PO (08:23)
[2024-11-03 08:32] LABS: Hematocrit 31.8 % (37.0-47.0); Mean Corp Hgb Conc. 31.4 g/dL (33.0-37.0); Mean Corpuscular Hgb 27.8 pg (27.0-31.0); Mean Corpuscular Volume 88.3 fL (81.0-99.0); Mean Platelet Volume 12.9 fL (7.4-10.4); Platelet Count 187 10^3/uL (130-400); Red Cell Dist. Width 15.1 % (11.5-14.5); White Blood Cell Count 9.2 10^3/uL (4.8-10.8)
--- NOTE | 2024-11-03 09:22 | W.PN.NEPH.PH ---
Today's Communication / Plan
-
follow BMP
Assessment/Plan
-
74y F with PMH significant for hypertension, DM-II and chronic ILD s/p COVID who presents to ED complaining of SOB. And pulmonary edema on x-ray treated with IV diuretics with reduced ejection fraction from previous 40 to 45%
Patient has chronic kidney disease and follows with Dr. Baptiste
Renal consult for BERYL prevention
Baseline creatinine between 2 and 2.3
IMP:
Shortness of breath CHF
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
CKD stage 4 (baseline Cr� 2.5)-follows Dr Cast
DM2
CAD hx of [place], hx of stents
HTN
DM
GERD
h/o ACEI angioedema
h/o Henoch-Schonlein purpura
Gastric bypass 2010
ALISHA, mild, with nocturnal hypoxemia
PAD, SFA stent Apr 2020
Plan:
d/w patient at length again risks of contrast nephropathy with another dye load.
await Cr today before progressing with CTA
she also understands there will additional renal risk with CT surgery as well.
She understands risk of dialysis includes (more likely) permanent dialysis if needed
high risk situation
-
-
Date of Service: November 03, 2024
CC / HPI / ROS
-
Chief Complaint:
CKD4
History of Present Illness:
CKD/Cr stable at 2.1 yesterday, labs this am pending
no CP
BP stable
Review of Systems:
no CP/SOB
Labs
-
Labs:
WBC 9.2 10^3/uL (4.8-10.8) 11/03/24 08:13
RBC 3.60 10^6/uL (4.20-5.40) L 11/03/24 08:13
Hgb 10.0 g/dL (12.0-16.0) L 11/03/24 08:13
Hct 31.8 % (37.0-47.0) L 11/03/24 08:13
Plt Count 187 10^3/uL (130-400) 11/03/24 08:13
eGFR 24.27 11/02/24 07:11
Fdd-H-Wfpgwlznpui Pept 8600 pg/ml 10/28/24 22:22
Albumin 3.3 g/dl (3.5-5.0) L 11/02/24 07:11
Physical Exam
-
Vital Signs:
Vital Signs
Temp Pulse Resp BP Pulse Ox
98.3 F 64 20 152/66 97
11/03/24 07:58 11/03/24 07:58 11/03/24 07:58 11/03/24 08:23 11/03/24 07:58
Cardiovascular:: Regular rate and rhythm
Respiratory:: Bilateral: CTA
Lung Excursion:: Normal
Abdomen:: Nontender and Soft
Bowel Sounds:: Normal
Extremity Edema:: None: Bilateral:
--- NOTE | 2024-11-03 09:34 | W.PN.HOSP.TC ---
Today's Communication/Plan
-
ACS protocol
Assessment / Plan
Assessment / Plan
Physical exam:
General: Acutely ill. No acute distress
HEENT: Normocephalic, Atraumatic and Moist Mucous Membranes
Respiratory: Clear to Auscultation; Negative Wheezes, Rales or Rhonchi
Cardiac: Regular Rhythm and S1/S2
GI: Soft, Nontender and Nondistended
Musculoskeletal: No Clubbing, No Cyanosis and No Edema
Neuro: Awake, Alert and Oriented
Psych: Calm
A/P:
Left main and multivessel CAD:
Status postcardiac cath
Plan for coronary bypass
Continue aspirin and heparin drip
Continue beta-blockers and statin
Cardiology and CT surgery on board
Continue cardiac monitoring
Acute systolic CHF with flash pulmonary edema presentation:
Initially received IV diuresis. IV Lasix on hold currently
Echocardiogram showed EF 40 to 45%
GDMT-on beta-blockers, hydralazine and nitrates, and spironolactone.
Chronic kidney disease stage IV:
Nephrology consult appreciated
Avoid nephrotoxic
cont sodium bicarb
Monitor renal function
Acute hypoxic respiratory failure, POA:
Improved
Back on room air today
Continue to monitor respiratory status closely
Hypertension:
Continue current meds
Diabetes mellitus type 2:
Insulin sliding scale
Monitor blood sugars closely
DVT prophylaxis:
Currently on heparin
CODE STATUS:
Full code
Total time spent on today's encounter was 52 minutes which included time spent in counseling the patient/family regarding diagnosis and treatment plan as listed above, goals of care, and symptom management. Case was discussed with nursing staff,
specialists, and care coordinators/case management. All labs and imaging personally reviewed by me. Remainder the time spent in detailed review of previous records, lab data, imaging, and other medical provider documentation.
Anticipated Discharge: > 48 hours
Subjective/Interval History
-
Date of Service: November 03, 2024
Patient denies any chest pain or shortness of breath currently.
Objective Data
-
Labs:
Laboratory Results
11/02/24 11/03/24 11/03/24
23:41 08:13 14:30
WBC 9.2
Hgb 10.0 L
Hct 31.8 L
Plt Count 187
APTT 56.2 H 107.0 H Pending
Sodium Pending
Potassium Pending
Chloride Pending
Carbon Dioxide Pending
BUN Pending
Creatinine Pending
Glucose Pending
Calcium Pending
Vital Signs:
Vital Signs
Temp Pulse Resp BP Pulse Ox
98.3 F 64 20 152/66 97
11/03/24 07:58 11/03/24 07:58 11/03/24 07:58 11/03/24 08:23 11/03/24 07:58
I&O
11/02/24 11/03/24 11/04/24
06:59 06:59 06:59
Intake Total 1200 / 1200 120 / 120
Balance 1200 / 1200 120 / 120
[2024-11-03 09:37] LABS: Blood Urea Nitrogen 46 mg/dl (7-17); Calcium 8.4 mg/dl (8.4-10.2); Carbon Dioxide 26 mmol/L (22-30); Chloride 105 mmol/L (98-107); Estimated Creatinine Clearance 17 ml/min; Glucose 149 mg/dl (70-99); Magnesium 2.5 mg/dl (1.6-2.3); Potassium 5.1 mmol/L (3.5-5.1); Sodium 138 mmol/L (135-145); eGFR 24.27
--- NOTE | 2024-11-03 10:36 | W.PN.CARDCBS ---
Addendum entered and electronically signed by Melvin Danielson MD 11/03/24 14:23:
74-year-old woman with longstanding CAD and prior circumflex and OM PCI's January and April 2019 as well as December 2020. Admitted on October 28 with chest discomfort, troponin of 0.4 and proBNP 8600. Cardiac catheterization November 01 showed 60% distal left
main, 40% ostial LAD, hazy 80% ostial circumflex, moderate diffuse in-stent restenosis OM1 with daughter branch of 70%, RCA with 60 to 70% ostial stenosis, LV gram, some shortness of breath
PMH/PSH: PAD with right common femoral endarterectomy and patch angioplasty January 2024, covered right iliac stent, right SFA PRIVATE ADVISOR/stents 2023, HFpEF, hypertension, hyperlipidemia, longstanding type 2 diabetes, CKD 4, Henoch-Schoenle purpura,
glaucoma, celiac compression syndrome with PRIVATE ADVISOR, gastric bypass, angioedema to ZAY, orthostasis, TIA
Current meds: Spironolactone 25 mg a day, sodium bicarb 650 twice daily, pantoprazole 40 mg a day, hydralazine 25 twice daily, Lantus, Lyrica, atorvastatin 80 mg a day, ezetimibe 10 mg a day, furosemide 40 mg IV twice daily, metoprolol ER 25 mg a
day, isosorbide mononitrate 30 mg a day, IV heparin, aspirin, iron
115/50, pulse 60, resp 18, somewhat frustrated and discouraged, head neck exam unremarkable, some crackles left base, regular rate and rhythm without murmurs, some wounds on left lower extremity, no edema
Carotid ultrasound 11/02/2024: Heavily calcified plaque bilaterally, difficult to quantitate
Hemoglobin is 10, potassium is 5.1, BUN/creatinine are 46 and 2.1
Impression:
Presented w/ sudden onset SOB
Acute on chronic HFpEF
Elevated troponin, possible ACS
Hyperglycemia
CAD
s/p 2.5 mm Xience OM1 PCI 01/20/21
s/p Xience prox and overlapping previously placed distal OM-1 05/17/2019
s/p 2.5 mm Xience OM1 PCI 02/12/2019 PAD
s/p R common femoral endarterectomy w/ patch angioplasty and covered R iliac stent 01/2024
s/p right SFA angioplasty and stent 04/2020 h/o COVID 19 w/ residual parenchymal scarring
HTN
HLD
DM2
CKD 4
h/o Henoch-Schonle purpura
Glaucoma
Celiac compression syndrome s/p PRIVATE ADVISOR for compression and dissected 2016
h/o gastric bypass 2010
h/o angioedema on ZAY inhibitors
Aortic atherosclerosis
h/o orthostasis on Terazosin
h/o TIA 2016
Iron deficiency anemia
Plan:
Largely unchanged cardiac status. proBNP was 8600 on admission, will recheck. Currently receiving bicarb, she may need furosemide despite CKD and contrast.
Preoperative evaluation for CABG is pending, vascular surgery and pulmonary to evaluate.
Plavix washout, continue IV heparin.
Original Note:
Today's Communication / Plan
-
CT surgical evaluation underway
Plavix washout
Continue aspirin, IV heparin
Follow volume status. Lasix on hold. Nephrology following
Impression / Plan
-
PCP: Dr. Carlton
Seat Nailer: Dr. VICKY Danielson
Impression:
Presented w/ sudden onset SOB
Acute on chronic HFpEF
Elevated troponin, possible ACS
Hyperglycemia
CAD
s/p 2.5 mm Xience OM1 PCI 01/20/21
s/p Xience prox and overlapping previously placed distal OM-1 05/17/2019
s/p 2.5 mm Xience OM1 PCI 02/12/2019
PAD
s/p R common femoral endarterectomy w/ patch angioplasty and covered R iliac stent 01/2024
s/p right SFA angioplasty and stent 04/2020
h/o COVID 19 w/ residual parenchymal scarring
HTN
HLD
DM2
CKD 4
h/o Henoch-Schonle purpura
Glaucoma
Celiac compression syndrome s/p PRIVATE ADVISOR for compression and dissected 2016
h/o gastric bypass 2010
h/o angioedema on ZAY inhibitors
Aortic atherosclerosis
h/o orthostasis on Terazosin
h/o TIA 2016
Iron deficiency anemia
Echo 08/06/2020: EF 64%. Mild LVH. Normal RV. Mild MAC with mild MR. No AI or . Trace TR. PAP 29 mmHg
Echo 01/19/2021: EF 55-60%, stage I diastolic dysfunction, trace MR, trace TR, PAP 21 mmHg
Echo 10/29/2024: EF 40-45%, Stage I diastolic dysfunction, mild inferolateral and inferior hypokinesis
Plan:
- She was admitted with acute heart failure and elevated troponin which peaked at 0.7
- Echocardiogram showed new cardiomyopathy with EF 40 to 45%
- Underwent left heart cath 11/01/2024 with multivessel CAD
- Plavix has been held for washout. continue IV heparin, asa
- CT surgical evaluation underway. Procedure would likely be high risk given comorbidities. Noted to have significant carotid artery disease by ultrasound. May require MRI or CTA to eval further
- Creatinine bumped with diuresis, stable at 2.1 on 11/03. Nephrology following. She does report some shortness of breath overnight, follow. Weight continues to trend down if accurate
- Continue Toprol, Imdur, hydralazine, spironolactone, statin, Zetia
- She is not a candidate for ZAY/ARB due to history of angioedema
- Discussed with CT surgery
HPI: Steph is a 74 year old female with PMH of CAD, PAD, HFpEF, HTN, HLD, DM2, CKD, iron deficiency anemia, and glaucoma. Presented to [facility] ER with sudden onset shortness of breath. She was seen in the cardiology office on 10/22/2024 for evaluation
of intermittent chest discomfort which came on at rest following dinner. She had no exertional symptoms. She was started on pantoprazole at the time and reported resolution of her chest pain with this. Last night, after dinner she reported sudden
onset shortness of breath while sitting watching TV. EMS was called and she was started on BiPAP. On arrival to ER, she was noted to be significantly hypertensive and presented on IV nitroglycerin. Chest x-ray consistent with severe pulmonary
edema. She was started on IV Lasix and symptomatically has been improving. CT of chest negative for PE. Cardiology consulted for evaluation given elevated troponin and acute heart failure exacerbation. She reports she has no complaints. Denies
any chest pain and breathing is stable on high flow O2.
Progress Note - Seat Nailer
Subjective
Date of Service: November 03, 2024
Reports some shortness of breath at times overnight. No chest pain
Objective
Labs:
11/03/24 08:13
11/03/24 08:13
Labs
Hgb 10.0 g/dL (12.0-16.0) L 11/03/24 08:13
Hct 31.8 % (37.0-47.0) L 11/03/24 08:13
Plt Count 187 10^3/uL (130-400) 11/03/24 08:13
PT 14.0 Sec (11.4-14.6) 11/02/24 07:11
INR 1.03 11/02/24 07:11
APTT 107.0 Sec (23.4-35.0) H 11/03/24 08:13
Sodium 138 mmol/L (135-145) 11/03/24 08:13
Potassium 5.1 mmol/L (3.5-5.1) 11/03/24 08:13
BUN 46 mg/dl (7-17) H 11/03/24 08:13
Creatinine 2.1 mg/dL (0.6-1.0) H 11/03/24 08:13
Glucose 149 mg/dl (70-99) H 11/03/24 08:13
Vital Signs and I&O:
Vital Signs
Temp Pulse Resp BP Pulse Ox
98.3 F 64 20 152/66 94
11/03/24 07:58 11/03/24 07:58 11/03/24 07:58 11/03/24 08:23 11/03/24 08:00
Vital Signs
Temp Pulse Resp BP Pulse Ox
98.3 F 64 20 152/66 94
11/03/24 07:58 11/03/24 07:58 11/03/24 07:58 11/03/24 08:23 11/03/24 08:00
Intake & Output
11/01/24 11/02/24 11/03/24 11/04/24
07:59 07:59 07:59 07:59
Intake Total 480 / 480 720 / 720 120 / 120
Balance 480 / 480 720 / 720 120 / 120
Physical Exam
Physical Exam
GEN: No distress, awake, alert, oriented x3
HEENT: supple, anicteric, mmm, EOMI
LUNGS: Crackles bilaterally, no wheezes
CV: Reg, S1/S2, no murmur
ABD: soft, BS+, NT/ND
EXT: No cyanosis, clubbing. Trace edema of bilateral lower extremity
NEURO: Gross non-focal
SKIN: Warm, pink, dry. No rash
[2024-11-03 11:17] VITALS: BP 115/50
[2024-11-03 11:45] LABS: Glucose - Point of Care 118 mg/dl (70-99)
--- NOTE | 2024-11-03 12:07 | W.PN.UPDATE ---
Update Note
Progress Note Update
spoke with patient about the need a CTA Head and Neck and pre/post fluids. bicarb/IVF protocol ordered. I explained to the patient that she is high risk and will need pulmonary and vascular clearance as well. She expressed understanding. Current
tentative surgery date is TuesdayNovember 07 but pending attending evaluation.
[2024-11-03 14:56] LABS: APTT 62.2 Sec (23.4-35.0)
[2024-11-03 15:04] VITALS: BP 107/50
[2024-11-03 16:37] LABS: Glucose - Point of Care 229 mg/dl (70-99)
[2024-11-03] MEDS: LIPITOR 80 MG PO (16:40)
[2024-11-03] MEDS: NOVOLOG FLEXPEN-MODERATE RESISTANCE 3 UNITS SC (16:40)
[2024-11-03 18:45] VITALS: BP 113/49
[2024-11-03] MEDS: HEPARIN 25000 UNITS/250 ML IV (21:04)
[2024-11-03 21:18] LABS: Glucose - Point of Care 335 mg/dl (70-99)
[2024-11-03] MEDS: LYRICA 300 MG PO (21:18)
[2024-11-03] MEDS: LANTUS 0.38 UNITS SC (21:22)
[2024-11-03 21:56] LABS: APTT 144.6 Sec (23.4-35.0)
[2024-11-03 23:01] VITALS: BP 136/58
[2024-11-04 02:58] LABS: Glucose - Point of Care 53 mg/dl (70-99)
[2024-11-04 03:25] LABS: Glucose - Point of Care 97 mg/dl (70-99)
[2024-11-04 03:58] VITALS: BP 136/53
[2024-11-04 05:47] VITALS: BMI 23.9
[2024-11-04 06:15] LABS: Hemoglobin 9.5 g/dL (12.0-16.0); Mean Corp Hgb Conc. 31.7 g/dL (33.0-37.0); Mean Corpuscular Hgb 27.8 pg (27.0-31.0); Mean Corpuscular Volume 87.7 fL (81.0-99.0); Mean Platelet Volume 13.3 fL (7.4-10.4); Platelet Count 211 10^3/uL (130-400); Red Blood Cell Count 3.42 10^6/uL (4.20-5.40); Red Cell Dist. Width 15.1 % (11.5-14.5); White Blood Cell Count 10.2 10^3/uL (4.8-10.8)
[2024-11-04 06:40] LABS: NT-proBNP 5210 pg/ml
[2024-11-04 07:00] VITALS: BP 116/44
[2024-11-04 07:14] LABS: Blood Urea Nitrogen 46 mg/dl (7-17); Calcium 8.2 mg/dl (8.4-10.2); Carbon Dioxide 26 mmol/L (22-30); Chloride 107 mmol/L (98-107); Estimated Creatinine Clearance 18 ml/min; Glucose 47 mg/dl (70-99); Magnesium 2.6 mg/dl (1.6-2.3); Potassium 4.3 mmol/L (3.5-5.1); Sodium 141 mmol/L (135-145); eGFR 25.73
[2024-11-04] MEDS: NOVOLOG FLEXPEN-MODERATE RESISTANCE SC ×2 (07:29→11:44)
[2024-11-04 07:51] LABS: Glucose - Point of Care 56 mg/dl (70-99)
[2024-11-04] MEDS: SANTYL OINTMENT 1 APPLIC TOPICAL (08:18)
[2024-11-04] MEDS: FEOSOL 325 MG PO (08:19)
[2024-11-04] MEDS: APRESOLINE 25 MG PO (08:19)
[2024-11-04] MEDS: ZETIA 10 MG PO (08:19)
[2024-11-04] MEDS: IMDUR (EXTENDED RELEASE) 30 MG PO (08:19)
[2024-11-04] MEDS: PROTONIX 40 MG PO (08:19)
[2024-11-04] MEDS: TOPROL XL 25 MG PO (08:19)
[2024-11-04] MEDS: LOW STRENGTH ASPIRIN 81 MG PO (08:19)
[2024-11-04] MEDS: ALDACTONE 25 MG PO (08:19)
[2024-11-04] MEDS: VITAMIN C 250 MG PO (08:19)
[2024-11-04] MEDS: SODIUM BICARBONATE 650 MG PO ×2 (08:19→20:46)
[2024-11-04 09:07] LABS: Glucose - Point of Care 218 mg/dl (70-99)
--- NOTE | 2024-11-04 09:49 | W.PN.HOSP.TC ---
Today's Communication/Plan
-
ACS protocol. Plan for CABG
Assessment / Plan
Assessment / Plan
Physical exam:
General: Acutely ill. No acute distress
HEENT: Normocephalic, Atraumatic and Moist Mucous Membranes
Respiratory: Clear to Auscultation; Negative Wheezes, Rales or Rhonchi
Cardiac: Regular Rhythm and S1/S2
GI: Soft, Nontender and Nondistended
Musculoskeletal: No Clubbing, No Cyanosis and No Edema
Neuro: Awake, Alert and Oriented
Psych: Calm
A/P:
Left main and multivessel CAD:
Status postcardiac cath
Plan for coronary bypass and workup in progress
Continue aspirin and heparin drip
Continue beta-blockers and statin
Cardiology and CT surgery on board
Continue cardiac monitoring
Acute systolic CHF with flash pulmonary edema presentation:
Initially received IV diuresis. IV Lasix on hold currently
Echocardiogram showed EF 40 to 45%
GDMT-on beta-blockers, hydralazine and nitrates, and spironolactone.
Chronic kidney disease stage IV:
Nephrology consult appreciated
Avoid nephrotoxic
cont sodium bicarb
Monitor renal function
Acute hypoxic respiratory failure, POA:
Improved
Back on room air today
Continue to monitor respiratory status closely
Hypertension:
Continue current meds
Diabetes mellitus type 2:
Insulin sliding scale
Monitor blood sugars closely
DVT prophylaxis:
Currently on heparin
CODE STATUS:
Full code
Total time spent on today's encounter was 52 minutes which included time spent in counseling the patient/family regarding diagnosis and treatment plan as listed above, goals of care, and symptom management. Case was discussed with nursing staff,
specialists, and care coordinators/case management. All labs and imaging personally reviewed by me. Remainder the time spent in detailed review of previous records, lab data, imaging, and other medical provider documentation.
Anticipated Discharge: > 48 hours
Subjective/Interval History
-
Date of Service: November 04, 2024
Patient currently denies any chest pain or shortness of breath at rest. Afebrile
Objective Data
-
Labs:
Laboratory Results
11/03/24 11/04/24 11/04/24
21:32 05:15 05:54
WBC 10.2
Hgb 9.5 L
Hct 30.0 L
Plt Count 211
APTT 144.6 H Cancelled 107.0 H
Sodium 141
Potassium 4.3
Chloride 107
Carbon Dioxide 26
BUN 46 H
Creatinine 2.0 H
Glucose 47 L*
Calcium 8.2 L
11/04/24
12:45
WBC
Hgb
Hct
Plt Count
APTT Pending
Sodium
Potassium
Chloride
Carbon Dioxide
BUN
Creatinine
Glucose
Calcium
Vital Signs:
Vital Signs
Temp Pulse Resp BP Pulse Ox
97.6 F 56 18 116/44 98
11/04/24 07:00 11/04/24 07:00 11/04/24 07:00 11/04/24 08:19 11/04/24 08:00
I&O
11/03/24 11/04/24 11/05/24
06:59 06:59 06:59
Intake Total 120 / 120 1440 / 1440
Balance 120 / 120 1440 / 1440
[2024-11-04 11:00] VITALS: BP 139/63
[2024-11-04 11:34] LABS: Glucose - Point of Care 143 mg/dl (70-99)
--- NOTE | 2024-11-04 12:54 | W.PN.NEPH.PH ---
Today's Communication / Plan
-
CTA
Assessment/Plan
-
74y F with PMH significant for hypertension, DM-II and chronic ILD s/p COVID who presents to ED complaining of SOB. And pulmonary edema on x-ray treated with IV diuretics with reduced ejection fraction from previous 40 to 45%
Patient has chronic kidney disease and follows with Dr. Baptiste
Renal consult for BERYL prevention
Baseline creatinine between 2 and 2.3
IMP:
Shortness of breath CHF
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
CKD stage 4 (baseline Cr� 2.5)-follows Dr Cast
DM2
CAD hx of WI, hx of stents
HTN
DM
GERD
h/o ACEI angioedema
h/o Henoch-Schonlein purpura
Gastric bypass 2010
ALISHA, mild, with nocturnal hypoxemia
PAD, SFA stent Apr 2020
Plan:
d/w patient at length again risks of contrast nephropathy with another dye load.
For CTA tomorrow with bicarbonate prophylaxis
she also understands there will additional renal risk with CT surgery as well.
She understands risk of dialysis includes (more likely) permanent dialysis if needed
Possible CT surgery Tuesday
Follow BMP
-
-
Date of Service: November 04, 2024
CC / HPI / ROS
-
Chief Complaint:
CKD4
History of Present Illness:
CKD/Cr stable at 2.0
no CP
BP stable
Hemoglobin slightly lower at 9.5
Review of Systems:
no CP/SOB
Labs
-
Labs:
WBC 10.2 10^3/uL (4.8-10.8) 11/04/24 05:54
RBC 3.42 10^6/uL (4.20-5.40) L 11/04/24 05:54
Hgb 9.5 g/dL (12.0-16.0) L 11/04/24 05:54
Hct 30.0 % (37.0-47.0) L 11/04/24 05:54
Plt Count 211 10^3/uL (130-400) 11/04/24 05:54
Sodium 141 mmol/L (135-145) 11/04/24 05:54
Potassium 4.3 mmol/L (3.5-5.1) 11/04/24 05:54
Chloride 107 mmol/L (98-107) 11/04/24 05:54
Carbon Dioxide 26 mmol/L (22-30) 11/04/24 05:54
BUN 46 mg/dl (7-17) H 11/04/24 05:54
Creatinine 2.0 mg/dL (0.6-1.0) H 11/04/24 05:54
eGFR 25.73 11/04/24 05:54
Glucose 47 mg/dl (70-99) L* 11/04/24 05:54
Calcium 8.2 mg/dl (8.4-10.2) L 11/04/24 05:54
Pbm-F-Swgbsvyolym Pept 5210 pg/ml 11/04/24 05:54
Albumin 3.3 g/dl (3.5-5.0) L 11/02/24 07:11
Physical Exam
-
Vital Signs:
Vital Signs
Temp Pulse Resp BP Pulse Ox
97.9 F 59 16 139/63 100
11/04/24 11:00 11/04/24 11:00 11/04/24 11:00 11/04/24 11:00 11/04/24 11:00
Cardiovascular:: Regular rate and rhythm
Respiratory:: Bilateral: CTA
Lung Excursion:: Normal
Abdomen:: Nontender and Soft
Bowel Sounds:: Normal
Extremity Edema:: None: Bilateral:
[2024-11-04 13:18] LABS: APTT 115.2 Sec (23.4-35.0)
--- NOTE | 2024-11-04 14:56 | W.PN.CARDCBS ---
Today's Communication / Plan
-
Await CTA of carotids
Observe for heart failure
Eventual restart of furosemide
Await completion of CT surgical evaluation
Impression / Plan
-
PCP: Dr. Carlton
Computer Processing Scheduler: Dr. VICKY Danielson
Impression:
Presented w/ sudden onset SOB
Acute on chronic HFpEF
Elevated troponin, possible ACS
Hyperglycemia
CAD
s/p 2.5 mm Xience OM1 PCI 01/20/21
s/p Xience prox and overlapping previously placed distal OM-1 05/17/2019
s/p 2.5 mm Xience OM1 PCI 02/12/2019
PAD
s/p R common femoral endarterectomy w/ patch angioplasty and covered R iliac stent 01/2024
s/p right SFA angioplasty and stent 04/2020
h/o COVID 19 w/ residual parenchymal scarring
HTN
HLD
DM2
CKD 4
h/o Henoch-Schonle purpura
Glaucoma
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
h/o gastric bypass 2010
h/o angioedema on ZAY inhibitors
Aortic atherosclerosis
h/o orthostasis on Terazosin
h/o TIA 2016
Iron deficiency anemia
Echo 08/06/2020: EF 64%. Mild LVH. Normal RV. Mild MAC with mild MR. No AI or . Trace TR. PAP 29 mmHg
Echo 01/19/2021: EF 55-60%, stage I diastolic dysfunction, trace MR, trace TR, PAP 21 mmHg
Echo 10/29/2024: EF 40-45%, Stage I diastolic dysfunction, mild inferolateral and inferior hypokinesis
Plan:
She seems stable from a cardiac standpoint. Not much dyspnea, she is more accepting of her situation at present, and family is at bedside.
She does not have symptoms of heart failure, and her exam at present is reasonable, but she is getting bicarb and we will need to watch for acute HFpEF. Eventual restart of furosemide.
Renal function is stable.
Await CTA of carotids.
Continue heparin, beta-pasha, Imdur, nitrates, spironolactone and statin.
Await final disposition of CT surgery, hopefully for surgery midweek.
HPI: Steph is a 74 year old female with PMH of CAD, PAD, HFpEF, HTN, HLD, DM2, CKD, iron deficiency anemia, and glaucoma. Presented to [facility] ER with sudden onset shortness of breath. She was seen in the cardiology office on 10/22/2024 for evaluation
of intermittent chest discomfort which came on at rest following dinner. She had no exertional symptoms. She was started on pantoprazole at the time and reported resolution of her chest pain with this. Last night, after dinner she reported sudden
onset shortness of breath while sitting watching TV. EMS was called and she was started on BiPAP. On arrival to ER, she was noted to be significantly hypertensive and presented on IV nitroglycerin. Chest x-ray consistent with severe pulmonary
edema. She was started on IV Lasix and symptomatically has been improving. CT of chest negative for PE. Cardiology consulted for evaluation given elevated troponin and acute heart failure exacerbation. She reports she has no complaints. Denies
any chest pain and breathing is stable on high flow O2.
Progress Note - Computer Processing Scheduler
Subjective
Date of Service: November 04, 2024:
74-year-old woman with longstanding CAD and prior circumflex and OM PCI's January and April 2019 as well as December 2020. Admitted on October 28 with chest discomfort, troponin of 0.4 and proBNP 8600. Cardiac catheterization November 01 showed 60% distal left
main, 40% ostial LAD, hazy 80% ostial circumflex, moderate diffuse in-stent restenosis OM1 with daughter branch of 70%, RCA with 60 to 70% ostial stenosis, LV gram, some shortness of breath. She is less frustrated today, more accepting, son and
at bedside, will be getting CTA shortly has been getting bicarbonate.
PMH/PSH: PAD with right common femoral endarterectomy and patch angioplasty January 2024, covered right iliac stent, right SFA DIVERSIFIED CROPS FARMWORKER/stents 2023, HFpEF, hypertension, hyperlipidemia, longstanding type 2 diabetes, CKD 4, Henoch-Schoenle purpura,
glaucoma, celiac compression syndrome with DIVERSIFIED CROPS FARMWORKER, gastric bypass, angioedema to ZAY, orthostasis, TIA. She seemed less frustrated today, son and at bedside.
Current meds: Spironolactone 25 mg a day, bicarbonate, pantoprazole, hydralazine 25 mg twice daily, Lantus insulin, Lyrica 300 at bedtime, atorvastatin 80 a day, ezetimibe 10 mg a day, furosemide on hold, metoprolol ER 25 mg daily, Imdur, IV
heparin, aspirin 81 mg a day, IV bicarb, iron
139/63, pulse 59, weight is 55.5 kg, stable, head neck exam okay, few crackles in bases, regular rate and rhythm without obvious murmur JVD okay, no edema
Hemoglobin is 9.5, BUN/creatinine are 46 and 2.0, sugar was 47 this morning, proBNP is 5210, had been 8600 on October 29, 1999 100 500 June 11
Objective
Labs:
11/04/24 05:54
11/04/24 05:54
Labs
Hgb 9.5 g/dL (12.0-16.0) L 11/04/24 05:54
Hct 30.0 % (37.0-47.0) L 11/04/24 05:54
Plt Count 211 10^3/uL (130-400) 11/04/24 05:54
PT 14.0 Sec (11.4-14.6) 11/02/24 07:11
INR 1.03 11/02/24 07:11
APTT 115.2 Sec (23.4-35.0) H 11/04/24 12:53
Sodium 141 mmol/L (135-145) 11/04/24 05:54
Potassium 4.3 mmol/L (3.5-5.1) 11/04/24 05:54
BUN 46 mg/dl (7-17) H 11/04/24 05:54
Creatinine 2.0 mg/dL (0.6-1.0) H 11/04/24 05:54
Glucose 47 mg/dl (70-99) L* 11/04/24 05:54
Vital Signs and I&O:
Vital Signs
Temp Pulse Resp BP Pulse Ox
36.6 C 59 16 139/63 100
11/04/24 11:00 11/04/24 11:00 11/04/24 11:00 11/04/24 11:00 11/04/24 11:00
Vital Signs
Temp Pulse Resp BP Pulse Ox
36.6 C 59 16 139/63 100
11/04/24 11:00 11/04/24 11:00 11/04/24 11:00 11/04/24 11:00 11/04/24 11:00
Intake & Output
11/02/24 11/03/24 11/04/24 11/05/24
07:59 07:59 07:59 07:59
Intake Total 720 / 720 120 / 120 1440 / 1440
Balance 720 / 720 120 / 120 1440 / 1440
Physical Exam
Physical Exam
See above
[2024-11-04 15:00] VITALS: BP 111/49
[2024-11-04 16:43] LABS: Glucose - Point of Care 282 mg/dl (70-99)
[2024-11-04] MEDS: NOVOLOG FLEXPEN-MODERATE RESISTANCE 5 UNITS SC (17:08)
[2024-11-04] MEDS: LIPITOR 80 MG PO (17:08)
[2024-11-04] MEDS: SODIUM BICARBONATE 1150 MEQ IV (18:14)
[2024-11-04] MEDS: APRESOLINE PO (19:47)
[2024-11-04 19:49] VITALS: BP 99/73
[2024-11-04 20:07] LABS: APTT 82.4 Sec (23.4-35.0)
[2024-11-04 21:00] LABS: Glucose - Point of Care 178 mg/dl (70-99)
[2024-11-04] MEDS: LYRICA 300 MG PO (21:51)
[2024-11-04] MEDS: LANTUS 0.38 UNITS SC (21:51)
[2024-11-04 23:16] VITALS: BP 122/51
[2024-11-04] MEDS: COLACE 100 MG PO (23:26)
[2024-11-05] VITALS (7 sets, daily range): BP systolic 112–144; BP diastolic 49–65; BMI 26.0
[2024-11-05 02:00] LABS: Glucose - Point of Care 230 mg/dl (70-99)
[2024-11-05 02:15] LABS: APTT 92.6 Sec (23.4-35.0)
--- NOTE | 2024-11-05 05:04 | W.PN.CT ---
Today's Communication / Plan
-
Plan:
-Cont. current medical management per primary team
-Cont. current meds (ASA, Heparin gtt, Imdur, Spironolactone, Zetia, Lipitor)
-C/O diarrhea overnight, placed Colace on hold. Will place order for PRN Imodium
-Plavix washout, last dose 11/01/24
-Ongoing CABG workup/evaluation
-CT surgeon to review imaging
-Vascular Surgery to comment on recent finding of severe GLENROY per CTA of head/neck on 11/04/24
-Will cont. to closely monitor
Assessment / Plan
-
Assessment:
-Known CAD
-S/P multiple PCI with stents (MATT to mid/distal OM1 01/2019; overlapping MATT to prox/OM1 04/2019; MATT to OM1, 12/2020)
-Multivessel CAD (LM: 60% distal, LAD: 40% ostial, LCx: 80% ostial and OM1 in-stent restenosis/70% Larger daughter branch, RCA: 60-70% ostial)
-NSTEMI (peak trop 0.705)
-SOB/denies Chest pain
-Plavix washout, last dose 11/01/24
-Acute systolic CHF on chronic Diastolic CHF
-Chronic ILD/pulmonary fibrosis d/t ID 2019
-ALISHA
-ICM
-LVEF 40-45% per TTE 10/29/24; EF 55-60% per TTE 01/20/21
-Mild MR
-T2DM (on insulin, hgb A1C 11.8)
-CKD stage 4 (cr 1.5-3.1)
-Anemia
-IgA vasculitis/Henoch schonlein purpura
-HTN
-GERD
-Glaucoma
-HLD (statin allergy)
-Hx angioedema to ZAY-I
-Hx TIA, 2016
-Old lacunar infarct, per CTA head/neck 11/04/24
-Severe carotid artery stenosis (GLENROY: >70%; Prox LICA 50-69%); L vertebral art stenosis (50-69%), per CTA head/neck 11/04/24
-Severe PAD/Claudication with LLE (?diabetic) ulcer
-Celiac compression syndrome S/p DATER ASSEMBLER, 2016
-S/P R SFA stent, 05/08/20
-S/P L SFA/post. popliteal art balloon angioplasty and stenting, 08/09/24
-S/P L ant. tibial balloon angioplasty, 08/09/24
-S/P R common femoral endarterectomy w/ patch angioplasty and covered R iliac stent 01/2024
-S/P L ERIC, 05/2024
-S/P Gastric bypass 2010
-S/p D&C
-S/P T&A
Discussed patient care with: Cardiology, Nursing, Respiratory Therapy, Pharmacy and Care Team
Subjective
-
Date of Service: November 05, 2024
No major issues overnight. Denies CP/SOB. C/O diarrhea overnight (3 loose stools)
Objective Data
-
PT 14.0 Sec (11.4-14.6) 11/02/24 07:11
INR 1.03 11/02/24 07:11
APTT 92.6 Sec (23.4-35.0) H 11/05/24 01:55
Vital Signs
Vital Signs
Temp Pulse Resp BP Pulse Ox
97.8 F 55 16 121/51 99
11/05/24 03:12 11/05/24 03:12 11/05/24 03:12 11/05/24 03:12 11/05/24 03:12
CT Intake/Output/Weight
11/04/24 11/04/24 11/05/24
06:59 18:59 06:59
Intake Total 480 / 1440 1200 / 1200
Balance 480 / 1440 1200 / 1200
SaO2: 99 (RA)
Physical Exam
-
General: Awake, Oriented and AOx3
Cardiovascular: Regular rate & rhythm and No Murmurs
Respiratory: Decreased Breath Sounds (at bases with bibasilar crackles)
Extremities: Other (+trace edema, LLE ulcer with dressing applied, 2+ bilateral DP pulses)
Data Reviewed
-
Lab Results: Results Reviewed
Medications: Active Meds Reviewed
Chest X-Ray: Report Reviewed and Image Reviewed
CT Scan: Report Reviewed and Image Reviewed
ECG: Report Reviewed and Image Reviewed
[2024-11-05] MEDS: HEPARIN 25000 UNITS/250 ML IV (05:18)
--- NOTE | 2024-11-05 05:26 | PTCARENOTE ---
Patient reported having 3 urgent loose/soft BMs today. Hat placed in toilet.
[2024-11-05 07:14] LABS: Glucose - Point of Care 59 mg/dl (70-99)
[2024-11-05 07:44] LABS: Glucose - Point of Care 102 mg/dl (70-99)
[2024-11-05] MEDS: NOVOLOG FLEXPEN-MODERATE RESISTANCE SC (08:00)
--- NOTE | 2024-11-05 08:15 | PN.DE.MGMTRT ---
Insulin Management
- -
11/05/2024: Diabetes Management Consult
74 year old female with PMH: HTN, DM-II and chronic ILD s/p COVID who presents to ED complaining of SOB. In the ED, patient was noted to be markedly hypertensive with hypoxemia and CXR consistent with severe pulmonary edema.
Was taking Lantus 38 units @ HS and NovoLog 2-8 units AC. A1C 11.8%, Cr 2.0, eGFR 25.73
Patient awake, alert, oriented, sitting up in bed, offers no complaints, able to discuss diabetes care plan.
States she consistently monitors her blood sugars at home and that her FBG is usually 105 to 120 but her premeal glucose numbers are always elevated despite taking insulin before each meal. She uses SS NovoLog. Diabetes is managed by her PCP.
Of note, she has had multiple episodes of hypoglycemia alternating with hyperglycemia. FBG was 59 this AM and was 56 yesterday.
Will reduce her Lantus dose to 30 units @ HS.
Premeal range up to 282 yesterday. Will start AC NovoLog 5 units. cont low corrective with meals.
Will cont to monitor and adjust insulin dose if necessary.
Diabetes History
- -
Type of Diabetes: 2 requiring insulin
Pre-Admission Diabetes Regimen
Lab Results
Hemoglobin A1c 11.8 % (4.0-5.6) H 10/29/24 03:26
Insulin Pump Settings
IP Diabetes Regimen
11/04/24 11/04/24 11/04/24
09:06 11:33 16:42
POC Glucose 218 H 143 H 282 H
11/04/24 11/05/24 11/05/24
20:59 01:59 07:10
POC Glucose 178 H 230 H 59 L
11/05/24
07:42
POC Glucose 102 H
Meal type: Lunch
Meal type: Breakfast
Amount consumed: 100%
Amount consumed: 100%
Patient Education
--- NOTE | 2024-11-05 08:22 | CON.VAS ---
Consultation
Consultation Request
Date/Time Consultation Performed: 11/05/24 8:30am
Performing Provider: Favio
Reason for Consultation: Carotid stenosis
Medical History
-
Chief Complaint: SOB
History of Present Illness:
74 yo female with PMH significant for HTN, DM, PAD (see below) presented to [facility] ER on 10/29/24 for shortness of breath. Pt was admitted for severe pulmonary edema, hypertension and hypoxemia. Since admission pt has had intermittent chest pain.
Cardiac cath performed on 11/01/24 showed '60% distal left main stenosis and hazy 80% ostial circumflex stenosis. Moderate coronary disease at the origin of the LAD. 60-70% ostial stenosis in dominant RCA with pressure dampening upon engagement of a
[address] Bulgarian [address].' CT surgery consulted for left main and 3 vessel disease. Pre-op CTA head neck suggests: 'Severe plaque of the proximal right internal carotid artery causing greater than 70% stenosis. 50-69% proximal left internal
carotid artery stenosis and distal left vertebral artery focal stenosis.' Vascular consult for carotid stenosis.
Pt well known to Vascular service, surgical history below. Last intervention 08/09/[address] Stahl for nonhealing wound.
Vascular History:
07/15/06: Angioplasty of the celiac artery using a 6 followed by 7 mm angioplasty balloon.
05/08/20: Placement of self expanding Nitinol Zilver, Cook Zilver, nondrug eluting stent 6 mm x 14 cm right SFA.
02/23/24: Extensive right ilio femoral endarterectomy (distal external iliac artery, common femoral artery, proximal profunda femoris artery, superficial femoral artery) with bovine pericardial patch angioplasty. Shockwave intravascular lithotripsy
angioplasty with 9 mm shockwave L6 balloon right common iliac artery. Placement of balloon mounted [employer] Viabahn 8 mm x 59 mm covered stent right common iliac artery.
08/09/24: Balloon angioplasty of chronically occluded left superficial femoral artery with a 4 mm angioplasty balloon. Balloon angioplasty and stent placement with ClaraStream Zilver PTX drug-eluting overlapping bare-metal stents left above-knee popliteal
artery and superficial femoral artery with 6 mm x 14 cm stents x 2. Balloon angioplasty of proximal left superficial femoral artery with 5 mm Bard Lutonix drug-coated balloon. Balloon angioplasty of left behind the knee popliteal artery with 4 mm
Bard Lutonix drug-coated balloon. Balloon angioplasty of the left anterior tibial artery with 2.5 mm angioplasty balloon.
Past Medical History
Past Medical History: CAD, CHF, HTN, IDDM, Renal Failure (CKD4) and Other (PAD, ILD (secondary to COVID))
Past Surgical History: Other (Gastric Bypass, D&C, T&A, PTCA / Stents, PAD Stents / Endarterectomies, Left ERIC)
Social History
Tobacco: Non-Smoker
Alcohol: Occasional
Drug: None
Family History
Family History: Reviewed & Not Pertinent
Allergies / Home Medications
Allergy/AdvReac Type Severity Reaction Status Date / Time
MARCELL Inhibitors Allergy Swelling/AN Verified 10/28/24 22:22
[Marcell Inhibitors] GIOEDEMA
chamomile flower Allergy Rash Verified 10/28/24 22:22
Sulfa (Sulfonamide Allergy Rash Verified 10/28/24 22:22
Antibiotics)
sulfite Allergy VASCULITIS Verified 10/28/24 22:22
�Medication �Instructions �Recorded �Confirmed �Type
clopidogrel 75 mg tablet (Plavix) 75 mg PO DAILY Blood Clot 06/19/24 10/29/24 History
Prevention/Tx
furosemide 40 mg tablet (Lasix) 40 mg PO DAILY Fluid 06/19/24 10/29/24 History
Retention/Swelling
ezetimibe 10 mg tablet 10 mg PO DAILY cholesterol #0 tabs 07/02/24 10/29/24 Rx
febuxostat 40 mg tablet 40 mg PO HS elevated uric acid #0 07/02/24 10/29/24 Rx
tabs
insulin aspar prot-insulin aspart 2 - 8 unit SC AC 08/09/24 10/29/24 History
100 unit/mL (70-30) subcutaneous
pen (Novolog Mix 70-30FlexPen
U-100)
atorvastatin 80 mg tablet 80 mg PO QPM cholesterol 10/29/24 10/29/24 History
cholecalciferol (vitamin D3) 50 50 mcg PO DAILY Supplement 10/29/24 10/29/24 History
mcg (2,000 unit) tablet (Vitamin
D3)
coQ10 (ubiquinol) 200 mg capsule 400 mg PO DAILY High Cholesterol 10/29/24 10/29/24 History
hydralazine 25 mg tablet 25 mg PO BID 10/29/24 10/29/24 History
insulin glargine 100 unit/mL (3 38 unit SC HS 10/29/24 10/29/24 History
mL) subcutaneous pen (Basaglar
KwikPen U-100 Insulin)
pantoprazole 40 mg tablet,delayed 40 mg PO DAILY 10/29/24 10/29/24 History
release (Protonix)
pregabalin 150 mg capsule 300 mg PO HS diabetic neuropathy 10/29/24 10/29/24 History
sodium bicarbonate 650 mg tablet 650 mg PO BID 10/29/24 10/29/24 History
spironolactone 25 mg tablet 25 mg PO DAILY 10/29/24 10/29/24 History
tramadol 50 mg tablet 50 mg PO Q6HPRN PRN moderate pains 10/29/24 10/29/24 History
Review of Systems
-
History Source: Patient
All other systems: Negative unless noted
Constitutional: Reports No Symptoms
EENT: Reports No Symptoms
Respiratory: Reports Trouble Breathing (resolved)
Cardiac: Reports Chest Pain (resolved)
Vascular: Denies Leg Pain / Claudication
Abdomen/GI: Reports No Symptoms
: Reports No Symptoms
Musculoskeletal: Reports No Symptoms
Skin: Reports Other (healing LE wounds)
Physical Exam
Vital Signs
Temp Pulse Resp BP Pulse Ox
98.1 F 63 18 144/65 98
11/05/24 08:14 11/05/24 08:14 11/05/24 08:14 11/05/24 08:14 11/05/24 08:14
Lab Results
Troponin I 0.649 ng/ml H* 10/29/24 15:40
Odv-C-Wyogdnejvrv Pept 5210 pg/ml 11/04/24 05:54
Physical Exam
General: No Apparent Distress
HEENT: Normocephalic and Atraumatic
Respiratory: Non Labored Respirations
Cardiac: Negative JVD
GI: Soft and Non Tender
Musculoskeletal: No Clubbing and No Cyanosis
Skin: Warm
Neuro: Awake, Alert, Oriented and No Motor Deficits
Psych: Calm
Assessment / Plan
-
74 yo female with R>L carotid stenosis by CTA, here for CABG
Plan:
- Seen and assessed at bedside with Dr. Stahl this morning. Patient has no symptoms from her carotid stenoses. Would recommend proceeding with CABG. We will have patient follow-up in our office for surgical discussion once discharged
Data Reviewed
-
CT Scan: Report Reviewed by me
Ultrasound: Report Reviewed by me
Labs: Labs Reviewed by me
--- NOTE | 2024-11-05 08:26 | W.PN.HOSP.TC ---
Today's Communication/Plan
-
Follow-up with CT surgery recommendation regarding CABG
Assessment / Plan
Assessment / Plan
Impression:
Patient 74 F with Hx HTN, HLD, DM, CKD p/w NSTEMI and CHF. Cath showed multi-vessel CAD therefore plan for CABG. CT surgery following.
Noted to have carotid artery stenosis, vascular surgery consulted
Seen by vascular surgery and cleared for CABG
Assessment/plan:
Left main and multivessel CAD:
Status postcardiac cath
Plan for coronary bypass and workup in progress
Continue aspirin and heparin drip
Continue beta-blockers and statin
Cardiology and CT surgery on board
Continue cardiac monitoring.
Seen by vascular surgery for carotid artery stenosis, cleared for surgery
Bilateral carotid stenoses, right side likely greater than 70%, left side 50 to 69%.
Seen by vascular surgeon Dr. Stahl.
Recommending coronary revascularization without prior carotid revascularization.
Acute systolic CHF with flash pulmonary edema presentation:
Initially received IV diuresis. IV Lasix on hold currently
Echocardiogram showed EF 40 to 45%
GDMT-on beta-blockers, hydralazine and nitrates, and spironolactone.
Chronic kidney disease stage IV:
Nephrology consult appreciated
Avoid nephrotoxic
cont sodium bicarb
Monitor renal function
Acute hypoxic respiratory failure, POA:
Improved
Back on room air today
Continue to monitor respiratory status closely
Hypertension:
Continue current meds
Diabetes mellitus type 2:
Insulin sliding scale
Monitor blood sugars closely
CODE STATUS: Full code
DVT prophylaxis: Heparin drip.
Diet: Cardiac diet
Total time spent on today's encounter was 55 minutes which included time spent in counseling the patient/family regarding diagnosis and treatment plan as listed above, goals of care, and symptom management. Case was discussed with nursing staff,
specialists, and care coordinators/case management. All labs and imaging personally reviewed by me. Remainder the time spent in detailed review of previous records, lab data, imaging, and other medical provider documentation.
Anticipated Discharge: > 48 hours
Subjective/Interval History
-
Date of Service: November 05, 2024
Patient seen and examined at bedside, denies any chest pain or shortness of breath, no abdominal pain, no nausea, no vomiting, no diarrhea or constipation.
Was seen by vascular surgery.
Objective Data
-
Labs:
Laboratory Results
11/05/24 11/05/24
01:55 07:57
WBC Pending
Hgb Pending
Hct Pending
Plt Count Pending
APTT 92.6 H Pending
Sodium Pending
Potassium Pending
Chloride Pending
Carbon Dioxide Pending
BUN Pending
Creatinine Pending
Glucose Pending
Calcium Pending
Vital Signs:
Vital Signs
Temp Pulse Resp BP Pulse Ox
98.1 F 63 18 144/65 98
11/05/24 08:14 11/05/24 08:14 11/05/24 08:14 11/05/24 08:14 11/05/24 08:14
I&O
11/04/24 11/05/24 11/06/24
06:59 06:59 06:59
Intake Total 1440 / 1440 1200 / 1200 480 / 480
Output Total 3 / 3
Balance 1440 / 1440 1200 / 1200 477 / 477
Physical Exam
-
General: Well Developed, Well Nourished, No Apparent Distress and Comfortable
HEENT: Normocephalic, Atraumatic, Moist Mucous Membranes, No Ptosis, PERRLA and Nose Appears Normal
Respiratory: Clear to Auscultation and Non Labored Respirations
Cardiac: Regular Rhythm and S1/S2
Breast: Deferred by me
GI: Soft, Nontender, Nondistended and Normal Bowel Sounds
Genito-urinary: No Costovertebral Tender
Musculoskeletal: No Clubbing, No Cyanosis and No Edema
Skin: Warm
Neuro: Awake, Alert, Oriented, AO x 3 and No Motor Deficits
Psych: Calm
Data Reviewed
-
Diagnostic Radiology: Image personally visualized and interpreted and Report Reviewed by me
CT Scan: Image personally visualized and interpreted and Report Reviewed by me
Ultrasound: Image personally visualized and interpreted and Report Reviewed by me
MRI: Image personally visualized and interpreted and Report Reviewed by me
Medical Tests (Nuc Med, Echo etc): Image personally visualized and interpreted and Report Reviewed by me
Labs: Labs Reviewed by me
Old Records: Reviewed
[2024-11-05 08:35] LABS: Hematocrit 31.5 % (37.0-47.0); Hemoglobin 9.8 g/dL (12.0-16.0); Mean Corp Hgb Conc. 31.1 g/dL (33.0-37.0); Mean Platelet Volume 13.1 fL (7.4-10.4); Platelet Count 200 10^3/uL (130-400); Red Cell Dist. Width 15.5 % (11.5-14.5); White Blood Cell Count 8.3 10^3/uL (4.8-10.8)
[2024-11-05 08:36] LABS: APTT 78.2 Sec (23.4-35.0)
--- NOTE | 2024-11-05 09:29 | CON.PUL ---
Consultation
Consultation Request
Date/Time Consultation Requested: 11/05/2024-7:30 AM
Date/Time Consultation Performed: 11/05/2024-7:30 AM
Requesting Provider: Hospitalist
Performing Provider: Dr. Brooks
Reason for Consultation: Shortness of breath/preop pulmonary clearance
Medical History
-
Chief Complaint: CAD/shortness of breath
History of Present Illness:
74-year-old female non-smoker with history of hypertension, Henoch-Sanna�nlein purpura, diabetes, chronic kidney disease, had covid pneumonia with chronic interstitial lung disease followed by Dr. Avila presented with increasing shortness of breath
and found to have significant CAD in need of CABG-pulmonary consulted for preoperative pulmonary assessment 11/05/2024. The patient states that she developed shortness of breath without chest pain. She has been stable from a respiratory perspective
for months and has not had progressive shortness of breath. She has 'chronic crackles'. She is not on any inhalers, oxygen, or antifibrotic agents-last seen by Dr. Avial May 2024. She currently feels much improved. She does not complain
of shortness of breath, chest congestion, productive cough, , abdominal pain, nausea, leg swelling or focal weakness.
Past Medical History
Past Medical History: None (Hypertension. Henoch-Sanna�nlein purpura. Diabetes. Interstitial lung disease status post Covid. ALISHA. Chronic kidney disease stage III. CAD/multiple stents. Chronic heart failure diastolic. GERD. Glaucoma. Statin
Allergy. PAD/stents. Gastric bypass. Tonsillectomy. Left ERIC)
Social History
Tobacco: Non-smoker
Alcohol: Occasional (Rarely)
Drug: None
Living: With Family
Occupational Exposures: No known asbestos exposure
Environmental Exposures: no known tuberculosis exposure
Family History
Family History: Reviewed & Not Pertinent (Father hypertension and CAD, mother diabetes hypertension)
Allergies / Home Medications
Allergies
Allergy/AdvReac Type Severity Reaction Status Date / Time
MARCELL Inhibitors Allergy Swelling/AN Verified 10/28/24 22:22
[Marcell Inhibitors] GIOEDEMA
chamomile flower Allergy Rash Verified 10/28/24 22:22
Sulfa (Sulfonamide Allergy Rash Verified 10/28/24 22:22
Antibiotics)
sulfite Allergy VASCULITIS Verified 10/28/24 22:22
Home Medications
�Medication �Instructions �Recorded �Confirmed �Last Taken �Type
clopidogrel 75 mg tablet (Plavix) 75 mg PO DAILY Blood Clot 06/19/24 10/29/24 08/09/24 05:00 History
Prevention/Tx
furosemide 40 mg tablet (Lasix) 40 mg PO DAILY Fluid 06/19/24 10/29/24 08/08/24 08:00 History
Retention/Swelling
ezetimibe 10 mg tablet 10 mg PO DAILY cholesterol #0 tabs 07/02/24 10/29/24 08/08/24 08:00 Rx
febuxostat 40 mg tablet 40 mg PO HS elevated uric acid #0 07/02/24 10/29/24 08/08/24 08:00 Rx
tabs
insulin aspar prot-insulin aspart 2 - 8 unit SC AC 08/09/24 10/29/24 08/07/24 08:00 History
100 unit/mL (70-30) subcutaneous
pen (Novolog Mix 70-30FlexPen
U-100)
atorvastatin 80 mg tablet 80 mg PO QPM cholesterol 10/29/24 10/29/24 Unknown History
cholecalciferol (vitamin D3) 50 50 mcg PO DAILY Supplement 10/29/24 10/29/24 Unknown History
mcg (2,000 unit) tablet (Vitamin
D3)
coQ10 (ubiquinol) 200 mg capsule 400 mg PO DAILY High Cholesterol 10/29/24 10/29/24 Unknown History
hydralazine 25 mg tablet 25 mg PO BID 10/29/24 10/29/24 Unknown History
insulin glargine 100 unit/mL (3 38 unit SC HS 10/29/24 10/29/24 Unknown History
mL) subcutaneous pen (Basaglar
KwikPen U-100 Insulin)
pantoprazole 40 mg tablet,delayed 40 mg PO DAILY 10/29/24 10/29/24 Unknown History
release (Protonix)
pregabalin 150 mg capsule 300 mg PO HS diabetic neuropathy 10/29/24 10/29/24 Unknown History
sodium bicarbonate 650 mg tablet 650 mg PO BID 10/29/24 10/29/24 Unknown History
spironolactone 25 mg tablet 25 mg PO DAILY 10/29/24 10/29/24 Unknown History
tramadol 50 mg tablet 50 mg PO Q6HPRN PRN moderate pains 10/29/24 10/29/24 Unknown History
Review of Systems
-
Unable to Obtain full review of systems at this time due to: Other (Per HPI)
Vitals / Labs / Diagnostic Testing
Vital Signs
Temp Pulse Resp BP Pulse Ox
98.1 F 63 18 144/65 98
11/05/24 08:14 11/05/24 08:14 11/05/24 08:14 11/05/24 08:14 11/05/24 08:14
Lab Data
11/05/24 07:57
Laboratory Results
11/04/24 11/04/24 11/05/24
12:53 19:44 01:55
APTT 115.2 H 82.4 H 92.6 H
11/05/24
07:57
APTT 78.2 H
Diagnostic Testing:
Physical Exam
-
Exam:
well-nourished and well-developed in no apparent distress
HEENT-atraumatic, normocephalic
Neck-supple, no JVD, no bruit
Heart-regular rate and rhythm-no murmurs, rubs or gallops
Chest with mildly diminished breath sounds, crackles throughout both lung jackson posteriorly as well as anteriorly and no wheezes
Back without tenderness
Abdomen-soft, nontender, nondistended, no hepatosplenomegaly
Extremities-no cyanosis, clubbing, edema and good peripheral pulses
Integument-intact, no rashes, lesions or ecchymosis
Neurology-alert and oriented, nonfocal motor and sensory exam
Assessment
-
74-year-old female non-smoker with history of hypertension, Henoch-Sanna�nlein purpura, diabetes, chronic kidney disease, had covid pneumonia with chronic interstitial lung disease followed by Dr. Avila presented with increasing shortness of breath
and found to have significant CAD in need of CABG-pulmonary consulted for preoperative pulmonary assessment 11/05/2024.
Sudden onset shortness of breath-flash pulmonary edema
Acute on top of chronic heart failure preserved EF
Elevated troponin
CAD-for possible revascularization
Carotid stenosis
Interstitial lung disease
Anemia-normocytic
Conditions present prior to admission:
Hypertension.
Henoch-Sanna�nlein purpura/IgA vasculitis
Diabetes.
Interstitial lung disease status post [id number] improving
Pulmonary nodule-stable
Restrictive lung disease-TLC 58%
Decreased diffusing capacity-stable at 51%
ALISHA.
Chronic kidney disease stage III.
CAD/multiple stents-MATT to mid/distal OM1 01/2019; overlapping MATT to prox/OM1 04/2019; MATT to OM1, 12/2020
Chronic heart failure diastolic.
GERD.
Glaucoma.
TIA 2017
Old lacunar infarct per CT head/neck 11/04/2024
Severe carotid stenosis
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
Statin Allergy.
PAD/stents-SFA stent 04/2020, status post left SFA popliteal balloon angioplasty and stenting 07/2024, left anterior tibial balloon angioplasty 07/2024, right common femoral endarterectomy 01/2024
Gastric bypass-2010 tonsillectomy. Left ERIC. D&C.
Plan
Pulmonary asked to evaluate patient for perioperative pulmonary risks for CABG surgery
Acute decompensation has improved-suspect flash pulmonary edema
Supplemental oxygen as needed
Incentive spirometry
Nebulizers if needed-currently not bronchospastic
Outpatient pulmonary office notes were reviewed-last pulmonary function test May 2024 showed significant improvement, however, moderate restriction and moderate reduction in diffusing capacity persisted
Check full PFT after appropriate diuresis-tentatively scheduled for 11/06/2024
Will comment thereafter on perioperative pulmonary risk score complications-suspect from a pulmonary perspective there will be at least moderate risks for potential complications including difficulties from coming off the ventilator, long-term
ventilator need-reviewed with patient and she understands the risks
Additionally there is significant risks from a peripheral vascular and nephrology perspective
Nephrology following-significant risk for postoperative worsening of renal function
Vascular surgery to see patient preoperatively as well
Cardiology following-correspondence reviewed
Diuresis as tolerated
Diuresis note
DVT prophylaxis-on heparin drip
Pantoprazole for GI prophylaxis
Nutrition
Early mobilization
Outpatient pulmonary follow-up Dr Avila
Diagnostic data:
CXR 03/18/24: stable scarring at the base, no change compared to prior films per report
Chest x-ray 11/18-severe interstitial and alveolar cardiogenic edema, mild peripheral scarring left midlung
CT 02/03/24: emphysematous changes at the base with atelectasisCXR 08/17/22: mild interstitial changes, left greater than right. No acute findings. No change compared to 11/18/21
CT chest 10/29/2024-no evidence for pulm embolism or thoracic aortic dissection, severe diffuse bilateral interstitial and alveolar opacification suggestive of multifocal atypical infection, CHF also on the differential, underlying interstitial
fibrosis noted on CT dated 2020
stress test 02/16/24: Inconclusive, moderate risk study.� EF 59%, fixed inferior lateral defect
Echo 10/29/2024: EF 40-45%, Stage I diastolic dysfunction, mild inferolateral and inferior hypokinesis
LHC 01/20/21: status post stent OM1
Left heart cardiac catheterization 10/29/24-60% distal left main, hazy 80% ostial circumflex stenosis, 60 to 70% ostial stenosis dominant RCA
Lower extremity ultrasound 10/29/2024-no evidence for left lower extremity DVT
PFT 06/01/24: FVC 1.95/74%, FEV1 1.68/86%, ratio 86.� TLC 2.68/58%, DLCO 9.98/51%.� Moderate restriction with moderate gas exchange defect.� When compared to 2021, TLC is stable.� DLCO has decreased from 11.30 to 9.98 which is not significant,
[place] 08/17/22: FVC 1.09/39%, FEV1 0.89/42%, ratio 82%, significant BD response noted in FVC (17%), FEV1 (24%), and small airways (30%). post BD results: FVC 1.27/45%, FEV1 1.10/52%, ratio 87%. Suggestive of severe restriction.
PFT 12/09/21: FVC 1.97/70%, FEV1 1.72/82%, TLC 2.70/57%, DLCO 11.30/55%. When compared to one year ago, spirometry, lung volumes and diffusion capacity have all improved significantly
spirometry 11/25/21. FVC of 1.16 or 41%,FEV1 is 0.97 or 45%. Ratio of 83%.[place] 02/11/21: FVC 1.55/55%, FEV1 1.31/61%, ratio 86. This it is stable compared to prior PFT
PFT 08/29/20: FVC 1.40/48%, FEV1 1.25/57%, ratio 89.TLC 2.23/46%, DLCO 5.80/28%
6MWT 06/01/24: total distance 600 feet, 98% room air, heart rate 90, dyspnea scale 2/10.6MW 10/21/22- RA 100%, HR 79 bpm. ambulated 300 feet and maintained 100%, dyspnea index 0/10
HST 12/04/20: total index 6.5, desaturation elbert 80%.
Data Reviewed
-
PFT: Report reviewed by me
EKG: Report reviewed by me
Radiology: Image personally visualized and interpreted and Report reviewed by me
CT Scan: Image personally visualized and interpreted and Report reviewed by me
Ultrasound: Report reviewed by me
Medical Tests (Nuc Med, Echo etc): Report reviewed by me
Labs: Labs reviewed by me
Old Records: Reviewed
Total Time Spent with Patient (in minutes): 65
[2024-11-05 09:46] LABS: Glucose - Point of Care 260 mg/dl (70-99)
[2024-11-05 09:53] LABS: Blood Urea Nitrogen 43 mg/dl (7-17); Calcium 8.6 mg/dl (8.4-10.2); Carbon Dioxide 29 mmol/L (22-30); Chloride 102 mmol/L (98-107); Estimated Creatinine Clearance 18 ml/min; Glucose 83 mg/dl (70-99); Potassium 4.2 mmol/L (3.5-5.1); Sodium 139 mmol/L (135-145); eGFR 22.95
[2024-11-05] MEDS: SANTYL OINTMENT 1 APPLIC TOPICAL (10:36)
[2024-11-05] MEDS: APRESOLINE 25 MG PO ×2 (10:38→20:53)
[2024-11-05] MEDS: VITAMIN C 250 MG PO (10:38)
[2024-11-05] MEDS: FEOSOL 325 MG PO (10:38)
[2024-11-05] MEDS: PROTONIX 40 MG PO (10:38)
[2024-11-05] MEDS: SODIUM BICARBONATE 650 MG PO ×2 (10:38→20:53)
[2024-11-05] MEDS: ZETIA 10 MG PO (10:38)
[2024-11-05] MEDS: IMDUR (EXTENDED RELEASE) 30 MG PO (10:38)
[2024-11-05] MEDS: ALDACTONE 25 MG PO (10:38)
[2024-11-05] MEDS: TOPROL XL 25 MG PO (10:39)
[2024-11-05] MEDS: LOW STRENGTH ASPIRIN 81 MG PO (10:39)
--- NOTE | 2024-11-05 11:08 | W.PN.UPDATE ---
Update Note
Progress Note Update
Seen and examined. Full consultation to follow. Patient known well to me status post bilateral lower extremity revascularizations. Admitted here due to worsening shortness of breath, chest discomfort, finding of significant coronary artery
disease now being worked up for CABG. Also has underlying pulmonary disease likely, and chronic kidney disease. Asked to evaluate regarding carotid stenoses. Patient denies any recent episodes of amaurosis, unilateral numbness or weakness, speech
dysarthria.
Her exam is without any focal neurologic deficits. Moves all extremities well. Feet are warm with palpable pedal pulses (2+ DP palpable bilaterally).
Carotid duplex and CT angiogram imaging reviewed.
Plan/ Bilateral carotid stenoses, right side likely greater than 70%, left side 50 to 69%. Confirmed both on duplex and CT scan imaging. Asymptomatic. Given her significant medical comorbidities and active cardiac disease, would recommend
coronary revascularization without prior carotid revascularization. I discussed with her she may be at slightly heightened risk for perioperative stroke given carotid disease, but I think she is significantly high risk for complications following
carotid interventions with active coronary disease. In addition, she has chronic kidney disease precluding low risk of TCAR as this would put her at increased risk of contrast-induced nephropathy/renal failure. And again as noted I think she is
high risk for carotid endarterectomy without prior coronary revascularization. Therefore would proceed as planned. Will be available for any issues perioperatively from a carotid perspective. Discussed this all with patient - she understands and
is in agreement with plan.
[2024-11-05 12:04] LABS: Glucose - Point of Care 226 mg/dl (70-99)
[2024-11-05] MEDS: NOVOLOG FLEXPEN-LOW RESISTANCE 2 UNITS SC (12:27)
[2024-11-05] MEDS: NOVOLOG FLEXPEN 5 UNITS SC ×2 (12:27→16:58)
--- NOTE | 2024-11-05 14:33 | W.PN.NEPH.PH ---
Today's Communication / Plan
-
follow up bmp
Assessment/Plan
-
74y F with PMH significant for hypertension, DM-II and chronic ILD s/p COVID who presents to ED complaining of SOB. And pulmonary edema on x-ray treated with IV diuretics with reduced ejection fraction from previous 40 to 45%
Patient has chronic kidney disease and follows with Dr. Baptiste
Renal consult for BERYL prevention
Baseline creatinine between 2 and 2.3
IMP:
Shortness of breath CHF
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
CKD stage 4 (baseline Cr� 2.5)-follows Dr Cast
DM2
CAD hx of MN, hx of stents
HTN
DM
GERD
h/o ACEI angioedema
h/o Henoch-Schonlein purpura
Gastric bypass 2010
ALISHA, mild, with nocturnal hypoxemia
PAD, SFA stent Apr 2020
Plan:
Status post CTA of carotids performed with bicarbonate IVFs prophylaxis
Creatinine was stable at 2.2, follow up bmp in am
she also understands there will additional renal risk with CT surgery as well.
She understands risk of dialysis includes (more likely) permanent dialysis if needed
Possible CT surgery Tuesday
Follow BMP
-
-
Date of Service: November 05, 2024
CC / HPI / ROS
-
Chief Complaint:
CKD4
History of Present Illness:
CKD/Cr stable at 2.2
no CP
BP stable
Hemoglobin 9.8
Review of Systems:
no CP/SOB
Labs
-
Labs:
WBC 8.3 10^3/uL (4.8-10.8) 11/05/24 07:57
RBC 3.50 10^6/uL (4.20-5.40) L 11/05/24 07:57
Hgb 9.8 g/dL (12.0-16.0) L 11/05/24 07:57
Hct 31.5 % (37.0-47.0) L 11/05/24 07:57
Plt Count 200 10^3/uL (130-400) 11/05/24 07:57
Sodium 139 mmol/L (135-145) 11/05/24 07:57
Potassium 4.2 mmol/L (3.5-5.1) 11/05/24 07:57
Chloride 102 mmol/L (98-107) 11/05/24 07:57
Carbon Dioxide 29 mmol/L (22-30) 11/05/24 07:57
BUN 43 mg/dl (7-17) H 11/05/24 07:57
Creatinine 2.2 mg/dL (0.6-1.0) H 11/05/24 07:57
eGFR 22.95 11/05/24 07:57
Glucose 83 mg/dl (70-99) 11/05/24 07:57
Calcium 8.6 mg/dl (8.4-10.2) 11/05/24 07:57
Res-P-Mtzqijqcvqe Pept 5210 pg/ml 11/04/24 05:54
Albumin 3.3 g/dl (3.5-5.0) L 11/02/24 07:11
Physical Exam
-
Vital Signs:
Vital Signs
Temp Pulse Resp BP Pulse Ox
98.5 F 61 18 130/55 93
11/05/24 11:54 11/05/24 11:54 11/05/24 11:54 11/05/24 11:54 11/05/24 11:54
Cardiovascular:: Regular rate and rhythm
Respiratory:: Bilateral: CTA
Lung Excursion:: Normal
Abdomen:: Nontender and Soft
Bowel Sounds:: Normal
Extremity Edema:: None: Bilateral:
--- NOTE | 2024-11-05 15:45 | W.PN.UPDATE ---
Update Note
Progress Note Update
CARDIAC SURGERY ATTENDING:
It was my pleasure to meet with Mrs. Steph Luong at her bedside today. I have reviewed her medical history and all available imaging. Briefly, she is a very pleasant 74-year-old woman with a complex past medical history including CKD stage IV
with baseline creatinine 2.0-2.3, CAD status post prior myocardial infarction/PCI, PVD status post bilateral lower extremity revascularization/stenting, ILD (severe), DM type II, Henoch-Schlonlein purpura (IgA vasculitis), GERD, ALISHA, and history of
prior gastric bypass. After presenting with shortness of breath, that the patient attributed initially to her lung disease, she was taken for cardiac catheterization. This demonstrated multivessel CAD including 60% distal left main disease, 40%
ostial LAD disease 80% hazy ostial left circumflex disease with moderate diffuse in-stent restenosis of her major obtuse marginal branch with additional 70% disease distally, and 60 to 70% ostial RCA disease. Echocardiogram demonstrated a reduced
LVEF at 40 to 45% with no significant valvular heart disease. Carotid assessment demonstrated significant bilateral carotid disease with GLENROY stenosis greater than 70%.
I have significant concerns about Mrs. Luong' ability to successfully navigate the periprocedural course following surgical coronary revascularization. I greatly appreciate the expertise and input of my cardiology and interventional cardiology
colleagues, my vascular surgery colleagues, my nephrology colleagues, and my medicine colleagues. Surgical revascularization would include KESSLER to LAD, greater saphenous vein graft to the lower branch of her major obtuse marginal, hopeful (although
potentially not possible) greater saphenous vein to the upper branch of her obtuse marginal, and greater saphenous vein to her RPDA. I would offer concurrent exclusion of her left atrial appendage. Her calculated STS risk of mortality is 8.43% and
morbidity is 31.2%. I believe these numbers underestimate her true periprocedural risks.
I have asked my interventional cardiology colleagues to reevaluate this patient for potential catheter-based interventions. If there is a possibility to proceed in this manner, I would strongly advocate for this approach. If this is not deemed
possible, I would offer high risk CABG with the clear understanding that this patient may require lifelong dialysis and potential ECMO support periprocedurally.
Thank you for the opportunity to participate in the care of this kind patient. I am hopeful we will determine the right course of action with multidisciplinary consensus.
Please call with any questions or concerns.
James Gonzalez MD
[phone]
--- NOTE | 2024-11-05 15:51 | CM ---
veterinary manager reviewed patient's chart and met with patient, per patient she maybe for possible surgery. plan was to home with VN.
Plan; To follow with progress.
--- NOTE | 2024-11-05 16:32 | W.PN.CARDCBS ---
Addendum entered and electronically signed by Melvin Danielson MD 11/05/24 17:42:
74-year-old woman with longstanding CAD and prior circumflex and OM PCI's January and April 2019 as well as December 2020. Admitted on October 28 with chest discomfort, troponin of 0.4 and proBNP 8600. Cardiac catheterization November 01 showed 60% distal left
main, 40% ostial LAD, hazy 80% ostial circumflex, moderate diffuse in-stent restenosis OM1 with daughter branch of 70%, RCA with 60 to 70% ostial stenosis, LV gram, some shortness of breath
PMH/PSH: PAD with right common femoral endarterectomy and patch angioplasty January 2024, covered right iliac stent, right SFA SCREED OPERATOR/stents 2023, HFpEF, hypertension, hyperlipidemia, longstanding type 2 diabetes, CKD 4, Henoch-Schoenle purpura,
glaucoma, celiac compression syndrome with SCREED OPERATOR, gastric bypass, angioedema to ZAY, orthostasis, TIA, interstitial lung disease following COVID
No complaints, she denies dyspnea, had CTA yesterday, described below. Despite cerebrovascular disease, vascular surgery does not think that intervention should be performed at this time.
Current medications: Lactone 25 g a day bicarbonate, Protonix 40 mg a day, hydralazine 25 mg twice daily, Lyrica 300 mg at bedtime, atorvastatin 80 mg daily, ezetimibe 10 mg daily, furosemide 40 mg IV twice daily on hold, metoprolol ER 25 mg a day,
isosorbide mononitrate 30 mg daily, IV heparin, aspirin 81 mg, iron, Lantus
144 systolic, pulse 63, respirate 18, afebrile, weight is 60.5 kg, if accurate 5 kg, no complaints of shortness of breath, lungs are clear, regular rate and rhythm, no murmurs JVD okay, trace edema left lower extremity, low anterior left lower
extremity wound is well-healed
Hemoglobin 9.8, creatinine is 2.2
CTA: Atrophy, old lacunar infarct, severe right internal carotid plaque, greater than 70%, 50-69% proximal left internal stenosis, 50-69% distal left vertebral
Impression:
See below
Plan:
She is unchanged from a cardiac standpoint. Await final disposition as to be determined by CT surgery.
Continue heparin. No other medication changes. She has undergone Plavix washout.
Creatinine is 2.2. Furosemide is currently on hold. Eventually this will need to be restarted. Her weight is up, but she is not symptomatically short of breath. For now defer to renal.
Original Note:
Today's Communication / Plan
-
Remains on Heparin gtt and aspirin. Plavix is on hold
Cont medical therapy and then CABG vs PCI
Impression / Plan
-
PCP: Dr. Carlton
Fin[employer]: Dr. VICKY Danielson
Impression:
Presented w/ sudden onset SOB
Acute on chronic HFpEF
Elevated troponin, possible ACS
Hyperglycemia
CAD
s/p 2.5 mm Xience OM1 PCI 01/20/21
s/p Xience prox and overlapping previously placed distal OM-1 05/17/2019
s/p 2.5 mm Xience OM1 PCI 02/12/2019
PAD
s/p R common femoral endarterectomy w/ patch angioplasty and covered R iliac stent 01/2024
s/p right SFA angioplasty and stent 04/2020
h/o COVID 19 w/ residual parenchymal scarring
HTN
HLD
DM2
CKD 4
h/o Henoch-Schonle purpura
Glaucoma
Celiac compression syndrome s/p SCREED OPERATOR for compression and dissected 2016
h/o gastric bypass 2010
h/o angioedema on ZAY inhibitors
Aortic atherosclerosis
h/o orthostasis on Terazosin
h/o TIA 2016
Iron deficiency anemia
Echo 08/06/2020: EF 64%. Mild LVH. Normal RV. Mild MAC with mild MR. No AI or . Trace TR. PAP 29 mmHg
Echo 01/19/2021: EF 55-60%, stage I diastolic dysfunction, trace MR, trace TR, PAP 21 mmHg
Echo 10/29/2024: EF 40-45%, Stage I diastolic dysfunction, mild inferolateral and inferior hypokinesis
Plan:
-CT surgery note for 11/05/24 reviewed and they have significant concerns about patient's ability to recover and it is felt that her STS scores underestimate her true risk. Interventional cardiology to evaluate for percutaneous options.
-Medical therapy continues in the form of hydralazine 25 mg BID plus Imdur ER 30 mg daily which is new this admission
-New to Toprol-XL 25 mg daily this admission and all doses tolerated thus far
-Outpatient dose of spironolactone 25 mg daily has been continued
-Patient is allergic to ZAY, she had angioedema. Will not add ARB/ARNI due to JESI on CKD 4
-Nephrology following and their note was reviewed by me 11/05/24, Cre is up to 2.2 on labs reviewed by me and so Lasix 40 mg IV BID remains on hold. Weight is overall up although some weights are standing scale and some are bed scale. Patient was
taking Lasix 40 mg PO daily prior to admission.
-Echo this admission summarized above, EF is now reduced at 40-45% with new mild inferolateral and inferior hypokinesis
-Outpatient dose of Plavix 75 mg daily remains on hold. Patient is chronically on Plavix due to h/o PAD and TIA as well.
-Heparin gtt started 11/02/23 and has been continued 11/05/24
-Aspirin 81 mg daily added this admission
HPI: Steph is a 74 year old female with PMH of CAD, PAD, HFpEF, HTN, HLD, DM2, CKD, iron deficiency anemia, and glaucoma. Presented to [facility] with sudden onset shortness of breath. She was seen in the cardiology office on 10/22/2024 for evaluation
of intermittent chest discomfort which came on at rest following dinner. She had no exertional symptoms. She was started on pantoprazole at the time and reported resolution of her chest pain with this. Last night, after dinner she reported sudden
onset shortness of breath while sitting watching TV. EMS was called and she was started on BiPAP. On arrival to ER, she was noted to be significantly hypertensive and presented on IV nitroglycerin. Chest x-ray consistent with severe pulmonary
edema. She was started on IV Lasix and symptomatically has been improving. CT of chest negative for PE. Cardiology consulted for evaluation given elevated troponin and acute heart failure exacerbation. She reports she has no complaints. Denies
any chest pain and breathing is stable on high flow O2.
Progress Note - [employer]
Subjective
Date of Service: November 05, 2024
No chest pain, a bit anxious with the news that surgery might not be the best option
Objective
Labs:
11/05/24 07:57
11/05/24 07:57
Labs
Hgb 9.8 g/dL (12.0-16.0) L 11/05/24 07:57
Hct 31.5 % (37.0-47.0) L 11/05/24 07:57
Plt Count 200 10^3/uL (130-400) 11/05/24 07:57
PT 14.0 Sec (11.4-14.6) 11/02/24 07:11
INR 1.03 11/02/24 07:11
APTT 78.2 Sec (23.4-35.0) H 11/05/24 07:57
Sodium 139 mmol/L (135-145) 11/05/24 07:57
Potassium 4.2 mmol/L (3.5-5.1) 11/05/24 07:57
BUN 43 mg/dl (7-17) H 11/05/24 07:57
Creatinine 2.2 mg/dL (0.6-1.0) H 11/05/24 07:57
Glucose 83 mg/dl (70-99) 11/05/24 07:57
Vital Signs and I&O:
Vital Signs
Temp Pulse Resp BP Pulse Ox
97.8 F 60 18 131/56 96
11/05/24 15:25 11/05/24 16:26 11/05/24 15:25 11/05/24 16:26 11/05/24 15:25
Vital Signs
Temp Pulse Resp BP Pulse Ox
97.8 F 60 18 131/56 96
11/05/24 15:25 11/05/24 16:26 11/05/24 15:25 11/05/24 16:26 11/05/24 15:25
Intake & Output
11/03/24 11/04/24 11/05/24 11/06/24
06:59 06:59 06:59 06:59
Intake Total 120 / 120 1440 / 1440 1200 / 1200 730 / 730
Output Total 3 / 3
Balance 120 / 120 1440 / 1440 1200 / 1200 727 / 727
Physical Exam
Physical Exam
GEN: AAOx3
HEENT: MMM, wearing glasses
LUNGS: RA
CV: SR on tele.
ABD: ND
EXT: No edema B/L LE
NEURO: Gross non-focal
SKIN: No rash
[2024-11-05 16:41] LABS: Glucose - Point of Care 71 mg/dl (70-99)
[2024-11-05] MEDS: NOVOLOG FLEXPEN-LOW RESISTANCE SC (16:55)
[2024-11-05] MEDS: LIPITOR 80 MG PO (17:27)
--- NOTE | 2024-11-05 18:30 | PTCARENOTE ---
1830 Pt transferred to IVU room 2242 via w/c. All personnel belongings sent with pt. Report given to IVU nurse.
[2024-11-05] MEDS: LYRICA 300 MG PO (22:09)
[2024-11-05 22:18] LABS: Glucose - Point of Care 148 mg/dl (70-99)
[2024-11-05] MEDS: LANTUS 0.3 UNITS SC (22:48)
[2024-11-06] VITALS (8 sets, daily range): BP systolic 83–139; BP diastolic 39–64; BMI 26.1
[2024-11-06 03:46] LABS: Glucose - Point of Care 75 mg/dl (70-99)
--- NOTE | 2024-11-06 04:22 | W.PN.CT ---
Today's Communication / Plan
-
Plan:
-Cont. current medical management per primary team
-Cont. current meds (ASA, Heparin gtt, Imdur, Spironolactone, Zetia, Lipitor)
-Plavix washout, last dose 11/01/24
-Ongoing CABG workup/evaluation/discussion
-Cleared for Surgery by Vascular team
-Possible high risk CABG/ERNST clip by Dr. Gonzalez tomorrow 11/07/24 vs. high risk PCI (ongoing discussion as to best course)
-Will cont. to closely monitor
Assessment / Plan
-
Assessment:
-Known CAD
-S/P multiple PCI with stents (MATT to mid/distal OM1 01/2019; overlapping MATT to prox/OM1 04/2019; MATT to OM1, 12/2020)
-Multivessel CAD (LM: 60% distal, LAD: 40% ostial, LCx: 80% ostial and OM1 in-stent restenosis/70% Larger daughter branch, RCA: 60-70% ostial)
-NSTEMI (peak trop 0.705)
-SOB/denies Chest pain
-Plavix washout, last dose 11/01/24
-Acute systolic CHF on chronic Diastolic CHF
-Chronic ILD/pulmonary fibrosis d/t 2019
-ALISHA
-ICM
-LVEF 40-45% per TTE 10/29/24; EF 55-60% per TTE 01/20/21
-Mild MR
-T2DM (on insulin, hgb A1C 11.8)
-CKD stage 4 (cr 1.5-3.1)
-Anemia
-IgA vasculitis/Henoch schonlein purpura
-HTN
-GERD
-Glaucoma
-HLD (statin allergy)
-Hx angioedema to ZAY-I
-Hx TIA, 2016
-Old lacunar infarct, per CTA head/neck 11/04/24
-Severe carotid artery stenosis (GLENROY: >70%; Prox LICA 50-69%); L vertebral art stenosis (50-69%), per CTA head/neck 11/04/24
-Severe PAD/Claudication with LLE ulcer
-Celiac compression syndrome S/p LIGHTING ENGINEER, 2016
-S/P R SFA stent, 05/08/20
-S/P L SFA/post. popliteal art balloon angioplasty and stenting, 08/09/24
-S/P L ant. tibial balloon angioplasty, 08/09/24
-S/P R common femoral endarterectomy w/ patch angioplasty and covered R iliac stent 01/2024
-S/P L ERIC, 05/2024
-S/P Gastric bypass 2010
-S/p D&C
-S/P T&A
Discussed patient care with: Cardiology, Nursing, Pharmacy and Care Team
Subjective
-
Date of Service: November 06, 2024
No issues overnight. Denies CP/SOB. Diarrhea has resolved
Objective Data
-
Lab Results
11/05/24 07:57
PT 14.0 Sec (11.4-14.6) 11/02/24 07:11
INR 1.03 11/02/24 07:11
APTT 78.2 Sec (23.4-35.0) H 11/05/24 07:57
Vital Signs
Vital Signs
Temp Pulse Resp BP Pulse Ox
97.8 F 73 16 139/57 99
11/06/24 03:49 11/06/24 04:00 11/06/24 03:49 11/06/24 03:48 11/06/24 03:49
CT Intake/Output/Weight
11/05/24 11/05/24 11/06/24
06:59 18:59 06:59
Intake Total 730 / 976 246 / 976
Output Total 3 / 3
Balance 727 / 973 246 / 973
SaO2: 99 (RA)
Physical Exam
-
General: Awake, Oriented and AOx3
Cardiovascular: Regular rate & rhythm
Respiratory: Rales and Decreased Breath Sounds (with basilar crackles)
Extremities: Other (+traced edema, LLE ulcer with dressing applied, 2+ DP pulses)
Data Reviewed
-
Lab Results: Results Reviewed
Medications: Active Meds Reviewed
Chest X-Ray: Report Reviewed and Image Reviewed
ECG: Report Reviewed and Image Reviewed
[2024-11-06 04:27] LABS: APTT 85.5 Sec (23.4-35.0)
[2024-11-06 04:51] LABS: Blood Urea Nitrogen 42 mg/dl (7-17); Calcium 8.7 mg/dl (8.4-10.2); Carbon Dioxide 30 mmol/L (22-30); Chloride 108 mmol/L (98-107); Estimated Creatinine Clearance 19 ml/min; Glucose 61 mg/dl (70-99); Magnesium 2.8 mg/dl (1.6-2.3); Potassium 4.4 mmol/L (3.5-5.1); Sodium 143 mmol/L (135-145); eGFR 24.27
[2024-11-06 07:53] LABS: Glucose - Point of Care 139 mg/dl (70-99)
--- NOTE | 2024-11-06 07:56 | W.PN.PUL.V3 ---
Today's Communication / Plan
-
Diuresis
Check PFTs
Suspect moderate risk for perioperative pulmonary complications
High risk CABG/ERNST clip 11/07/2024 versus high risk PCI
Assessment
-
74-year-old female non-smoker with history of hypertension, Henoch-Sanna�nlein purpura, diabetes, chronic kidney disease, had covid pneumonia with chronic interstitial lung disease followed by Dr. Avila presented with increasing shortness of breath
and found to have significant CAD in need of CABG-pulmonary consulted for preoperative pulmonary assessment 11/05/2024.
Sudden onset shortness of breath-flash pulmonary edema
Acute on top of chronic heart failure preserved EF
Elevated troponin
CAD-for possible revascularization
Carotid stenosis
Interstitial lung disease
Anemia-normocytic
Conditions present prior to admission:
Hypertension.
Henoch-Sanna�nlein purpura/IgA vasculitis
Diabetes.
Interstitial lung disease status post [id number] improving
Pulmonary nodule-stable
Restrictive lung disease-TLC 58%
Decreased diffusing capacity-stable at 51%
ALISHA.
Chronic kidney disease stage III.
CAD/multiple stents-MATT to mid/distal OM1 01/2019; overlapping MATT to prox/OM1 04/2019; MATT to OM1, 12/2020
Chronic heart failure diastolic.
GERD.
Glaucoma.
TIA 2016
Old lacunar infarct per CT head/neck 11/04/2024
Severe carotid stenosis
Celiac compression syndrome status post DIRECTOR OF RADIOLOGY 2016
Statin Allergy.
PAD/stents-SFA stent 04/2020, status post left SFA popliteal balloon angioplasty and stenting 07/2024, left anterior tibial balloon angioplasty 07/2024, right common femoral endarterectomy 01/2024
Gastric bypass-2010 tonsillectomy. Left ERIC. D&C.
Plan
Pulmonary asked to evaluate patient for perioperative pulmonary risks for CABG surgery
Acute decompensation has improved-suspect flash pulmonary edema
Supplemental oxygen as needed
Incentive spirometry encouraged
Nebulizers if needed-currently not bronchospastic
Outpatient pulmonary office notes were reviewed-last pulmonary function test May 2024 showed significant improvement, however, moderate restriction and moderate reduction in diffusing capacity persisted
Check full PFT after appropriate diuresis-tentatively scheduled for 11/06/2024
Will comment thereafter on perioperative pulmonary risk score complications-suspect from a pulmonary perspective there will be at least moderate risks for potential complications including difficulties from coming off the ventilator, long-term
ventilator need-reviewed with patient and she understands the risks
Additionally there is significant risks from a peripheral vascular and nephrology perspective
Nephrology following-significant risk for postoperative worsening of renal function
Vascular surgery to see patient preoperatively as well
Cardiology following-correspondence reviewed
Cardiothoracic surgery following-correspondence reviewed-CABG/ERNST clip versus high risk PCI-ongoing discussion
Diuresis as tolerated
Monitor renal function, electrolytes, intake/output, lower extremity edema and weight
Replace electrolytes as needed
DVT prophylaxis-on heparin drip
Pantoprazole for GI prophylaxis
Nutrition
Early mobilization
Outpatient pulmonary follow-up Dr Avila
Diagnostic data:
CXR 03/18/24: stable scarring at the base, no change compared to prior films per report
Chest x-ray 11/18-severe interstitial and alveolar cardiogenic edema, mild peripheral scarring left midlung
CT 02/03/24: emphysematous changes at the base with atelectasisCXR 08/17/22: mild interstitial changes, left greater than right. No acute findings. No change compared to 11/18/21
CT chest 10/29/2024-no evidence for pulm embolism or thoracic aortic dissection, severe diffuse bilateral interstitial and alveolar opacification suggestive of multifocal atypical infection, CHF also on the differential, underlying interstitial
fibrosis noted on CT dated 2020
stress test 02/16/24: Inconclusive, moderate risk study.� EF 59%, fixed inferior lateral defect
Echo 10/29/2024: EF 40-45%, Stage I diastolic dysfunction, mild inferolateral and inferior hypokinesis
LHC 01/20/21: status post stent OM1
Left heart cardiac catheterization 10/29/24-60% distal left main, hazy 80% ostial circumflex stenosis, 60 to 70% ostial stenosis dominant RCA
Lower extremity ultrasound 10/29/2024-no evidence for left lower extremity DVT
PFT 06/01/24: FVC 1.95/74%, FEV1 1.68/86%, ratio 86.� TLC 2.68/58%, DLCO 9.98/51%.� Moderate restriction with moderate gas exchange defect.� When compared to 2021, TLC is stable.� DLCO has decreased from 11.30 to 9.98 which is not significant,
[place] 08/17/22: FVC 1.09/39%, FEV1 0.89/42%, ratio 82%, significant BD response noted in FVC (17%), FEV1 (24%), and small airways (30%). post BD results: FVC 1.27/45%, FEV1 1.10/52%, ratio 87%. Suggestive of severe restriction.
PFT 12/09/21: FVC 1.97/70%, FEV1 1.72/82%, TLC 2.70/57%, DLCO 11.30/55%. When compared to one year ago, spirometry, lung volumes and diffusion capacity have all improved significantly
spirometry 11/25/21. FVC of 1.16 or 41%,FEV1 is 0.97 or 45%. Ratio of 83%.[place] 02/11/21: FVC 1.55/55%, FEV1 1.31/61%, ratio 86. This it is stable compared to prior PFT
PFT 08/29/20: FVC 1.40/48%, FEV1 1.25/57%, ratio 89.TLC 2.23/46%, DLCO 5.80/28%
6MWT 06/01/24: total distance 600 feet, 98% room air, heart rate 90, dyspnea scale 2/10.6MW 10/21/22- RA 100%, HR 79 bpm. ambulated 300 feet and maintained 100%, dyspnea index 0/10
HST 12/04/20: total index 6.5, desaturation elbert 80%.
Subjective Data
-
Date of Service:
Date of Service: November 06, 2024
Chief Complaint: Pulmonary Follow Up and Dyspnea Follow Up
Subjective:
Feels better, no shortness of breath at rest, chest pain or abdominal pain
Review of Systems
General: Other (Per HPI)
Objective Data
Data Reviewed
Vital Signs / I&O:
Vital Signs
Temp Pulse Resp BP Pulse Ox
97.9 F 63 20 139/57 95
11/06/24 07:12 11/06/24 05:30 11/06/24 07:12 11/06/24 03:48 11/06/24 07:12
Intake and Output
11/05/24 11/06/24 11/07/24
06:59 06:59 06:59
Intake Total 1200 / 1200 976 / 976
Output Total 3 / 3
Balance 1200 / 1200 973 / 973
SaO2: 95
Nasal Cannula flow liters per minute: 2
Physical Exam
General: Respiratory Distress (n) and Comfortable
HEENT: Normocephalic, Anicteric and Moist Mucous Membranes
Cardiovascular: Regular Rhythm
Respiratory: Wheeze (n), Crackles (Bibasilar alf up), Rhonchi, Non-Labored Respirations, Accessory Resp Muscle Use (n) and Stridor (n)
GI: Soft, Non Distended and Non Tender
Neurology: Awake, Alert and No Motor Deficits
Skin: Warm, Good Color, Cyanosis (n) and Jaundice (n)
Labs/Micro/Reports
Lab Data
11/05/24 07:57
11/06/24 03:46
Laboratory Results
11/05/24 11/06/24
07:57 03:46
APTT 78.2 H 85.5 H
[2024-11-06] MEDS: NOVOLOG FLEXPEN-LOW RESISTANCE SC (07:59)
[2024-11-06] MEDS: NOVOLOG FLEXPEN 5 UNITS SC ×3 (08:11→16:23)
[2024-11-06] MEDS: LOW STRENGTH ASPIRIN 81 MG PO (08:12)
[2024-11-06] MEDS: FEOSOL 325 MG PO (08:12)
[2024-11-06] MEDS: SODIUM BICARBONATE 650 MG PO ×2 (08:12→20:28)
[2024-11-06] MEDS: APRESOLINE 25 MG PO ×2 (08:12→20:28)
[2024-11-06] MEDS: ZETIA 10 MG PO (08:12)
[2024-11-06] MEDS: IMDUR (EXTENDED RELEASE) 30 MG PO (08:12)
[2024-11-06] MEDS: PROTONIX 40 MG PO (08:13)
[2024-11-06] MEDS: ALDACTONE 25 MG PO (08:13)
[2024-11-06] MEDS: SANTYL OINTMENT TOPICAL (08:13)
--- NOTE | 2024-11-06 08:31 | PN.DE.MGMTRT ---
Insulin Management
- -
11/06/2024: Diabetes Management follow up
74 year old female with PMH: HTN, DM-II and chronic ILD s/p COVID who presents to ED complaining of SOB. In the ED, patient was noted to be markedly hypertensive with hypoxemia and CXR consistent with severe pulmonary edema.
Was taking Lantus 38 units @ HS and NovoLog 2-8 units AC. A1C 11.8%, Cr 2.0, eGFR 25.73
States she consistently monitors her blood sugars at home and that her FBG is usually 105 to 120 but her premeal glucose numbers are always elevated despite taking insulin before each meal. She uses SS NovoLog. Diabetes is managed by her PCP.
Patient was off the floor for pulmonary function tests at time of my visit.
Glucose has improved, note for an episode of hypoglycemia to 61 V, POC 75.
Will further reduce Lantus dose to 28 units @ HS. Cont AC NovoLog 5 units and cont low corrective with meals.
Will cont to monitor and adjust insulin dose if necessary.
Diabetes History
- -
Type of Diabetes: 2 requiring insulin
Pre-Admission Diabetes Regimen
11/05/24 11/06/24
07:57 03:46
Creatinine 2.2 H 2.1 H
Lab Results
Hemoglobin A1c 11.8 % (4.0-5.6) H 10/29/24 03:26
Insulin Pump Settings
IP Diabetes Regimen
11/05/24 11/05/24 11/05/24
07:57 09:45 12:03
Glucose 83
POC Glucose 260 H 226 H
11/05/24 11/05/24 11/06/24
16:39 22:17 03:44
Glucose
POC Glucose 71 148 H 75
11/06/24 11/06/24
03:46 07:52
Glucose 61 L
POC Glucose 139 H
Meal type: Dinner
Meal type: Lunch
Meal type: Breakfast
Amount consumed: 100%
Amount consumed: 95%
Amount consumed: 75%
Patient Education
[2024-11-06] MEDS: VITAMIN C 250 MG PO (08:41)
--- NOTE | 2024-11-06 09:07 | W.PN.NEPH.PH ---
Today's Communication / Plan
-
Observe creatinine stable at 2.[address] surgery vs PCI tomorrow
Assessment/Plan
-
74y F with PMH significant for hypertension, DM-II and chronic ILD s/p COVID who presents to ED complaining of SOB. And pulmonary edema on x-ray treated with IV diuretics with reduced ejection fraction from previous 40 to 45%
Patient has chronic kidney disease and follows with Dr. Baptiste
Renal consult for BERYL prevention
Baseline creatinine between 2 and 2.3
IMP:
Shortness of breath CHF
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
CKD stage 4 (baseline Cr� 2.5)-follows Dr Cast
DM2
CAD hx of OR, hx of stents
HTN
DM
GERD
h/o ACEI angioedema
h/o Henoch-Schonlein purpura
Gastric bypass 2010
ALISHA, mild, with nocturnal hypoxemia
PAD, SFA stent Apr 2020
Plan:
Status post CTA of carotids performed on 11/05/24 with bicarbonate IVFs prophylaxis
Creatinine was stable at 2.1 today
she also understands there will additional renal risk with CT surgery as well.
She understands risk of dialysis includes (more likely) permanent dialysis if needed
Possible CT surgery vs PCI Tuesday
Follow BMP
-
-
Date of Service: November 06, 2024
CC / HPI / ROS
-
Chief Complaint:
CKD4
History of Present Illness:
CKD/Cr stable at 2.1
no CP
BP stable
Hemoglobin 9.8
Review of Systems:
no CP/SOB
Labs
-
Labs:
WBC 8.3 10^3/uL (4.8-10.8) 11/05/24 07:57
RBC 3.50 10^6/uL (4.20-5.40) L 11/05/24 07:57
Hgb 9.8 g/dL (12.0-16.0) L 11/05/24 07:57
Hct 31.5 % (37.0-47.0) L 11/05/24 07:57
Plt Count 200 10^3/uL (130-400) 11/05/24 07:57
Sodium 143 mmol/L (135-145) 11/06/24 03:46
Potassium 4.4 mmol/L (3.5-5.1) 11/06/24 03:46
Chloride 108 mmol/L (98-107) H 11/06/24 03:46
Carbon Dioxide 30 mmol/L (22-30) 11/06/24 03:46
BUN 42 mg/dl (7-17) H 11/06/24 03:46
Creatinine 2.1 mg/dL (0.6-1.0) H 11/06/24 03:46
eGFR 24.27 11/06/24 03:46
Glucose 61 mg/dl (70-99) L 11/06/24 03:46
Calcium 8.7 mg/dl (8.4-10.2) 11/06/24 03:46
[id number] Pept 5210 pg/ml 11/04/24 05:54
Albumin 3.3 g/dl (3.5-5.0) L 11/02/24 07:11
Physical Exam
-
Vital Signs:
Vital Signs
Temp Pulse Resp BP Pulse Ox
97.9 F 55 20 125/56 95
11/06/24 07:12 11/06/24 08:13 11/06/24 07:12 11/06/24 08:13 11/06/24 07:56
Cardiovascular:: Regular rate and rhythm
Respiratory:: Bilateral: CTA
Lung Excursion:: Normal
Abdomen:: Nontender and Soft
Bowel Sounds:: Normal
Extremity Edema:: None: Bilateral:
[2024-11-06] MEDS: TOPROL XL PO (10:03)
[2024-11-06] MEDS: HEPARIN 25000 UNITS/250 ML IV (10:26)
[2024-11-06 11:49] LABS: Glucose - Point of Care 244 mg/dl (70-99)
[2024-11-06] MEDS: NOVOLOG FLEXPEN-LOW RESISTANCE 2 UNITS SC ×2 (12:02→16:23)
--- NOTE | 2024-11-06 13:53 | W.PN.CARDCBS ---
Today's Communication / Plan
-
Stop Heparin gtt and load with Plavix 600 mg tonight
Aspirin has been continued throughout
Cath in AM
Impression / Plan
-
PCP: Dr. Carlton
Chief Human Resources Officer: Dr. VICKY Danielson
Impression:
Presented w/ sudden onset SOB
Acute on chronic HFpEF
Elevated troponin, possible ACS
Hyperglycemia
CAD
s/p 2.5 mm Xience OM1 PCI 01/20/21
s/p Xience prox and overlapping previously placed distal OM-1 05/17/2019
s/p 2.5 mm Xience OM1 PCI 02/12/2019
PAD
s/p R common femoral endarterectomy w/ patch angioplasty and covered R iliac stent 01/2024
s/p right SFA angioplasty and stent 04/2020
h/o COVID 19 w/ residual parenchymal scarring
HTN
HLD
DM2
CKD 4
h/o Henoch-Schonlein purpura
Glaucoma
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
h/o gastric bypass 2010
h/o angioedema on ZAY inhibitors
Aortic atherosclerosis
h/o orthostasis on Terazosin
h/o TIA 2016
Iron deficiency anemia
Echo 08/06/2020: EF 64%. Mild LVH. Normal RV. Mild MAC with mild MR. No AI or . Trace TR. PAP 29 mmHg
Echo 01/19/2021: EF 55-60%, stage I diastolic dysfunction, trace MR, trace TR, PAP 21 mmHg
Echo 10/29/2024: EF 40-45%, Stage I diastolic dysfunction, mild inferolateral and inferior hypokinesis
Plan:
-Patient admitted with chest pain and peak Troponin 0.705. Patient was diuresed and then had cardiac cath that revealed small vessel diabetic disease. Patient was seen by CT surgery for consideration of CABG, but is now recommended PCI.
-Plavix was held for possible CABG, last dose was 11/01/24. Patient is chronically on Plavix due to h/o PAD and TIA as well.
-Patient has been maintained on Heparin gtt since 11/01/24. Labs reviewed by me from 11/05/24 and platelets stable at 200. Will stop Heparin gtt and load with Plavix 600 mg 11/06/24.
-Aspirin 81 mg daily added on admission and has been continued throughout.
-Outpatient dose of hydralazine 25 mg BID has been continued
-New to Imdur ER 30 mg daily this admission
-New to Toprol-XL 25 mg daily this admission, dose held 11/06/24 due to hypotension. Hold parameters for SBP less than 90 or HR less than 55 added by me 11/06/24
-Outpatient dose of spironolactone 25 mg daily has been continued
-Patient is allergic to ZAY, she had angioedema. Will not add ARB/ARNI due to JESI on CKD 4
-Nephrology following and they have ordered bicarbonate IVFs for cath 11/07/24.
-Patient initially diuresed with Lasix 40 mg IV BID, but this has been on hold since 10/31/24. Weight is overall up although some weights are standing scale and some are bed scale. Patient was taking Lasix 40 mg PO daily prior to admission.
-Echo this admission summarized above, EF is now reduced at 40-45% with new mild inferolateral and inferior hypokinesis
HPI: Steph is a 74 year old female with PMH of CAD, PAD, HFpEF, HTN, HLD, DM2, CKD, iron deficiency anemia, and glaucoma. Presented to [facility] ER with sudden onset shortness of breath. She was seen in the cardiology office on 10/22/2024 for evaluation
of intermittent chest discomfort which came on at rest following dinner. She had no exertional symptoms. She was started on pantoprazole at the time and reported resolution of her chest pain with this. Last night, after dinner she reported sudden
onset shortness of breath while sitting watching TV. EMS was called and she was started on BiPAP. On arrival to ER, she was noted to be significantly hypertensive and presented on IV nitroglycerin. Chest x-ray consistent with severe pulmonary
edema. She was started on IV Lasix and symptomatically has been improving. CT of chest negative for PE. Cardiology consulted for evaluation given elevated troponin and acute heart failure exacerbation. She reports she has no complaints. Denies
any chest pain and breathing is stable on high flow O2.
Progress Note - Chief Human Resources Officer
Subjective
Date of Service: November 06, 2024
No chest pain
Objective
Labs:
11/05/24 07:57
11/06/24 03:46
Labs
Hgb 9.8 g/dL (12.0-16.0) L 11/05/24 07:57
Hct 31.5 % (37.0-47.0) L 11/05/24 07:57
Plt Count 200 10^3/uL (130-400) 11/05/24 07:57
PT 14.0 Sec (11.4-14.6) 11/02/24 07:11
INR 1.03 11/02/24 07:11
APTT 85.5 Sec (23.4-35.0) H 11/06/24 03:46
Sodium 143 mmol/L (135-145) 11/06/24 03:46
Potassium 4.4 mmol/L (3.5-5.1) 11/06/24 03:46
BUN 42 mg/dl (7-17) H 11/06/24 03:46
Creatinine 2.1 mg/dL (0.6-1.0) H 11/06/24 03:46
Glucose 61 mg/dl (70-99) L 11/06/24 03:46
Vital Signs and I&O:
Vital Signs
Temp Pulse Resp BP Pulse Ox
97.9 F 61 20 89/40 95
11/06/24 07:12 11/06/24 10:03 11/06/24 07:12 11/06/24 10:03 11/06/24 07:56
Vital Signs
Temp Pulse Resp BP Pulse Ox
97.9 F 61 20 89/40 95
11/06/24 07:12 11/06/24 10:03 11/06/24 07:12 11/06/24 10:03 11/06/24 07:56
Intake & Output
11/04/24 11/05/24 11/06/24 11/07/24
06:59 06:59 06:59 06:59
Intake Total 1440 / 1440 1200 / 1200 976 / 976
Output Total 3 / 3
Balance 1440 / 1440 1200 / 1200 973 / 973
Physical Exam
Physical Exam
GEN: AAOx3
HEENT: MMM, wearing glasses
LUNGS: RA
CV: SR on tele.
ABD: ND
EXT: No edema B/L LE
NEURO: Gross non-focal
SKIN: No rash
--- NOTE | 2024-11-06 14:03 | W.PN.HOSP.TC ---
Today's Communication/Plan
-
High risk CABG versus high risk PCI.
Ongoing discussion with cardiology and cardiothoracic surgeon
Assessment / Plan
Assessment / Plan
Impression:
Patient 74 F with Hx HTN, HLD, DM, CKD p/w NSTEMI and CHF. Cath showed multi-vessel CAD therefore plan for CABG. CT surgery following.
Noted to have carotid artery stenosis, vascular surgery consulted
Seen by vascular surgery and cleared for CABG.
High risk CABG versus high risk PCI.
Ongoing discussion with cardiology and cardiothoracic surgeon
Assessment/plan:
Left main and multivessel CAD:
Status postcardiac cath
Plan for coronary bypass and workup in progress
Continue aspirin and heparin drip
Continue beta-blockers and statin
Cardiology and CT surgery on board
Continue cardiac monitoring.
Seen by vascular surgery for carotid artery stenosis, cleared for surgery
11/06
High risk CABG versus high risk PCI.
Ongoing discussion with cardiology and cardiothoracic surgery.
Bilateral carotid stenoses, right side likely greater than 70%, left side 50 to 69%.
Seen by vascular surgeon Dr. Stahl.
Recommending coronary revascularization without prior carotid revascularization.
Acute systolic CHF with flash pulmonary edema presentation:
Initially received IV diuresis. IV Lasix on hold currently
Echocardiogram showed EF 40 to 45%
GDMT-on beta-blockers, hydralazine and nitrates, and spironolactone.
Chronic kidney disease stage IV:
Nephrology consult appreciated
Avoid nephrotoxic
cont sodium bicarb
Monitor renal function
Acute hypoxic respiratory failure, POA:
Improved
Back on room air today
Continue to monitor respiratory status closely
Hypertension:
Continue current meds
Diabetes mellitus type 2:
Insulin sliding scale
Monitor blood sugars closely
CODE STATUS: Full code
DVT prophylaxis: Heparin drip.
Diet: Cardiac diet
Total time spent on today's encounter was 65 minutes which included time spent in counseling the patient/family regarding diagnosis and treatment plan as listed above, goals of care, and symptom management. Case was discussed with nursing staff,
specialists, and care coordinators/case management. All labs and imaging personally reviewed by me. Remainder the time spent in detailed review of previous records, lab data, imaging, and other medical provider documentation.
Anticipated Discharge: > 48 hours
Subjective/Interval History
-
Date of Service: November 06, 2024
Patient seen and examined at bedside, denies any chest pain or shortness of breath, no abdominal pain, no nausea, no vomiting, no diarrhea or constipation.
Objective Data
-
Labs:
Laboratory Results
11/06/24
03:46
APTT 85.5 H
Sodium 143
Potassium 4.4
Chloride 108 H
Carbon Dioxide 30
BUN 42 H
Creatinine 2.1 H
Glucose 61 L
Calcium 8.7
Vital Signs:
Vital Signs
Temp Pulse Resp BP Pulse Ox
97.9 F 61 20 89/40 95
11/06/24 07:12 11/06/24 10:03 11/06/24 07:12 11/06/24 10:03 11/06/24 07:56
I&O
11/05/24 11/06/24 11/07/24
06:59 06:59 06:59
Intake Total 1200 / 1200 976 / 976
Output Total 3 / 3
Balance 1200 / 1200 973 / 973
Physical Exam
-
General: Well Developed, Well Nourished, No Apparent Distress and Comfortable
HEENT: Normocephalic, Atraumatic, Moist Mucous Membranes, No Ptosis, PERRLA and Nose Appears Normal
Respiratory: Clear to Auscultation and Non Labored Respirations
Cardiac: Regular Rhythm and S1/S2
Breast: Deferred by me
GI: Soft, Nontender, Nondistended and Normal Bowel Sounds
Genito-urinary: No Costovertebral Tender
Musculoskeletal: No Clubbing, No Cyanosis and No Edema
Skin: Warm
Neuro: Awake, Alert, Oriented, AO x 3 and No Motor Deficits
Psych: Calm
[2024-11-06 15:50] LABS: Glucose - Point of Care 248 mg/dl (70-99)
[2024-11-06] MEDS: PLAVIX 600 MG PO (16:25)
[2024-11-06] MEDS: LIPITOR 80 MG PO (17:15)
--- NOTE | 2024-11-06 18:57 | PTCARENOTE ---
~[id number]: Handoff report received from nightshift RN. Pt Aox4, NSR on tele, RA. Pt denies pain at this time. Heparin gtt infusin, therapeutic at this time. Per Dr. Gonzalez, plan is for high risk PCI tomorrow. Aldactone and hydralazine given per
order this AM, recheck BP around 0930, BP 89/40, patient asymptomatic; informed Merlyn PHILIP and hold parameters added to metoprolol which was held per parameters. Patient taken via wheelchair by respiratory for PFT.
~0335-6102: Patient returned from PFT.
~8202-9923: Patient resting in room. VSS. Pt denies pain at this time 1 dose plavix 600mg given per order. Heparin gtt to stop at 2000. All needs met at this time, call duran within reach.
~0466-0236: Pt resting in bed with visitors at bedside. VSS. Pt will be NPO at 0000 for high risk PCI. All needs met at this time, call duran within reach. handoff report given to nightshift RN.
[2024-11-06 22:30] LABS: Glucose - Point of Care 85 mg/dl (70-99)
[2024-11-06] MEDS: LYRICA 300 MG PO (23:13)
--- NOTE | 2024-11-06 23:20 | PTCARENOTE ---
Pt NSR on monitor. AAOx4 Heparin gtt off at 20:00 per 0rder. 22:00 scheduled Lantus 28U help per BLEACH CHLORINATOR for BS 85 and NPO at midnight.
[2024-11-07 04:22] VITALS: BP 110/43
[2024-11-07 04:57] LABS: Hematocrit 27.6 % (37.0-47.0); Hemoglobin 8.6 g/dL (12.0-16.0); Mean Corp Hgb Conc. 31.2 g/dL (33.0-37.0); Mean Corpuscular Hgb 27.8 pg (27.0-31.0); Mean Corpuscular Volume 89.3 fL (81.0-99.0); Mean Platelet Volume 12.9 fL (7.4-10.4); Platelet Count 173 10^3/uL (130-400); Red Blood Cell Count 3.09 10^6/uL (4.20-5.40); Red Cell Dist. Width 15.7 % (11.5-14.5); White Blood Cell Count 7.1 10^3/uL (4.8-10.8)
[2024-11-07 05:21] LABS: Blood Urea Nitrogen 42 mg/dl (7-17); Calcium 8.6 mg/dl (8.4-10.2); Carbon Dioxide 26 mmol/L (22-30); Chloride 108 mmol/L (98-107); Estimated Creatinine Clearance 17 ml/min; Glucose 67 mg/dl (70-99); Magnesium 2.8 mg/dl (1.6-2.3); Potassium 4.6 mmol/L (3.5-5.1); Sodium 141 mmol/L (135-145); eGFR 20.68
[2024-11-07 05:50] LABS: Glucose - Point of Care 76 mg/dl (70-99)
[2024-11-07 06:00] VITALS: BMI 25.8
[2024-11-07 07:08] VITALS: BP 126/54
[2024-11-07 07:45] VITALS: BMI 25.8
[2024-11-07 08:02] LABS: Glucose - Point of Care 64 mg/dl (70-99)
[2024-11-07] MEDS: NOVOLOG FLEXPEN SC ×2 (08:06→17:47)
[2024-11-07] MEDS: NOVOLOG FLEXPEN-LOW RESISTANCE SC ×2 (08:06→12:52)
[2024-11-07] MEDS: FEOSOL 325 MG PO (08:19)
[2024-11-07] MEDS: PROTONIX 40 MG PO (08:19)
[2024-11-07] MEDS: LOW STRENGTH ASPIRIN 81 MG PO (08:19)
[2024-11-07] MEDS: VITAMIN C 250 MG PO (08:19)
[2024-11-07] MEDS: ZETIA 10 MG PO (08:19)
[2024-11-07] MEDS: PLAVIX 75 MG PO (08:19)
[2024-11-07] MEDS: IMDUR (EXTENDED RELEASE) 30 MG PO (08:19)
[2024-11-07] MEDS: ALDACTONE 25 MG PO (08:19)
[2024-11-07] MEDS: SODIUM BICARBONATE 650 MG PO ×2 (08:20→20:47)
[2024-11-07] MEDS: SANTYL OINTMENT 1 APPLIC TOPICAL (08:20)
[2024-11-07] MEDS: APRESOLINE 25 MG PO ×2 (08:20→20:47)
[2024-11-07] MEDS: TOPROL XL 25 MG PO (08:20)
[2024-11-07] MEDS: FLUSH (NSS) 1 FLUSH IV (08:21)
--- NOTE | 2024-11-07 08:30 | PTCARENOTE ---
Assumed care of pt from prev nsg shift; pt AAO3 w/no CP or SOB. Pt's VSS w/HR in the 50's-60's, BP 126/54. Pt is SB/SR on telemetry monitoring. Pt's lab glucose low at 67 this AM. ACCUCHECK taken by prev shift was 76. This RN rechecked BS & pt was
64. Pt is NPO for poss high risk PCI. Pt refused IV Dextrose, so 4oz OJ given w/ordered AM meds. Recheck of BS 15 mins post OJ was 128. Pt w/call duran within reach & plan of care ongoing.
[2024-11-07 08:42] LABS: Glucose - Point of Care 128 mg/dl (70-99)
--- NOTE | 2024-11-07 09:21 | W.PN.PUL.V3 ---
Today's Communication / Plan
-
PFTs reviewed
Moderate risk for perioperative pulmonary complications
High risk PCI with high risk CT surgical backup today
Assessment
-
74-year-old female non-smoker with history of hypertension, Henoch-Sanna�nlein purpura, diabetes, chronic kidney disease, had covid pneumonia with chronic interstitial lung disease followed by Dr. Avila presented with increasing shortness of breath
and found to have significant CAD in need of CABG-pulmonary consulted for preoperative pulmonary assessment 11/05/2024.
Sudden onset shortness of breath-flash pulmonary edema
Acute on top of chronic heart failure preserved EF
Elevated troponin
CAD-for possible revascularization
Carotid stenosis
Interstitial lung disease
Anemia-normocytic
Conditions present prior to admission:
Hypertension.
Henoch-Sanna�nlein purpura/IgA vasculitis
Diabetes.
Interstitial lung disease status post [id number] improving
Pulmonary nodule-stable
Restrictive lung disease-TLC 58%
Decreased diffusing capacity-stable at 51%
ALISHA.
Chronic kidney disease stage III.
CAD/multiple stents-MATT to mid/distal OM1 01/2019; overlapping MATT to prox/OM1 04/2019; MATT to OM1, 12/2020
Chronic heart failure diastolic.
GERD.
Glaucoma.
TIA 2017
Old lacunar infarct per CT head/neck 11/04/2024
Severe carotid stenosis
Celiac compression syndrome status post RV SERVICER 2016
Statin Allergy.
PAD/stents-SFA stent 04/2020, status post left SFA popliteal balloon angioplasty and stenting 07/2024, left anterior tibial balloon angioplasty 07/2024, right common femoral endarterectomy 01/2024
Gastric bypass-2010 tonsillectomy. Left ERIC. D&C.
Plan
Pulmonary asked to evaluate patient for perioperative pulmonary risks for CABG surgery
Acute decompensation has improved-suspect flash pulmonary edema
Supplemental oxygen as needed
Incentive spirometry encouraged
Nebulizers if needed-currently not bronchospastic
Outpatient pulmonary office notes were reviewed-last pulmonary function test May 2024 showed significant improvement, however, moderate restriction and moderate reduction in diffusing capacity persisted
PFT 11/06/2024-FEV1 1.39-74%, FVC 1.68-69%, TLC 61%, RV 55%, DLCO-42%, DLCO/VA 72%. Moderate restriction and moderate reduction in diffusing capacity
PFTs continue to improve compared to May 2024
Patient cleared for proposed intervention-high risk PCI and potential high risk CABG with moderate risks for perioperative pulmonary complications including chronic ventilator dependence-patient understands and willing
Nephrology following-significant risk for postoperative worsening of renal function
Vascular surgery saw patient preoperatively as well
Cardiology following-correspondence reviewed
Cardiothoracic surgery following-correspondence reviewed-CABG/ERNST clip versus high risk PCI-ongoing discussion
High risk PCI 11/07/[address] surgery backup
Diuresis continues as tolerated
Monitor renal function, electrolytes, intake/output, lower extremity edema and weight
Replace electrolytes as needed
DVT prophylaxis-on heparin drip
Pantoprazole for GI prophylaxis
Nutrition
Early mobilization
Outpatient pulmonary follow-up Dr Avila
Diagnostic data:
CXR 03/18/24: stable scarring at the base, no change compared to prior films per report
Chest x-ray 11/18-severe interstitial and alveolar cardiogenic edema, mild peripheral scarring left midlung
CT 02/03/24: emphysematous changes at the base with atelectasisCXR 08/17/22: mild interstitial changes, left greater than right. No acute findings. No change compared to 11/18/21
CT chest 10/29/2024-no evidence for pulm embolism or thoracic aortic dissection, severe diffuse bilateral interstitial and alveolar opacification suggestive of multifocal atypical infection, CHF also on the differential, underlying interstitial
fibrosis noted on CT dated 2020
stress test 02/16/24: Inconclusive, moderate risk study.� EF 59%, fixed inferior lateral defect
Echo 10/29/2024: EF 40-45%, Stage I diastolic dysfunction, mild inferolateral and inferior hypokinesis
[facility] 01/20/21: status post stent OM1
Left heart cardiac catheterization 10/29/24-60% distal left main, hazy 80% ostial circumflex stenosis, 60 to 70% ostial stenosis dominant RCA
Lower extremity ultrasound 10/29/2024-no evidence for left lower extremity DVT
PFT 06/01/24: FVC 1.95/74%, FEV1 1.68/86%, ratio 86.� TLC 2.68/58%, DLCO 9.98/51%.� Moderate restriction with moderate gas exchange defect.� When compared to 2021, TLC is stable.� DLCO has decreased from 11.30 to 9.98 which is not significant,
Scout 08/17/22: FVC 1.09/39%, FEV1 0.89/42%, ratio 82%, significant BD response noted in FVC (17%), FEV1 (24%), and small airways (30%). post BD results: FVC 1.27/45%, FEV1 1.10/52%, ratio 87%. Suggestive of severe restriction.
PFT 12/09/21: FVC 1.97/70%, FEV1 1.72/82%, TLC 2.70/57%, DLCO 11.30/55%. When compared to one year ago, spirometry, lung volumes and diffusion capacity have all improved significantly
spirometry 11/25/21. FVC of 1.16 or 41%,FEV1 is 0.97 or 45%. Ratio of 83%.Scout 02/11/21: FVC 1.55/55%, FEV1 1.31/61%, ratio 86. This it is stable compared to prior PFT
PFT 08/29/20: FVC 1.40/48%, FEV1 1.25/57%, ratio 89.TLC 2.23/46%, DLCO 5.80/28%
PFT 11/06/2024-FEV1 1.39-74%, FVC 1.68-69%, TLC 61%, RV 55%, DLCO-42%, DLCO/VA 72%. Moderate restriction and moderate reduction in diffusing capacity
6MWT 06/01/24: total distance 600 feet, 98% room air, heart rate 90, dyspnea scale 2/10.6MW 10/21/22- RA 100%, HR 79 bpm. ambulated 300 feet and maintained 100%, dyspnea index 0/10
HST 12/04/20: total index 6.5, desaturation elbert 80%.
Subjective Data
-
Date of Service:
Date of Service: November 07, 2024
Chief Complaint: Pulmonary Follow Up, Dyspnea Follow Up and Pneumonia Follow Up
Subjective:
No complaints of shortness of breath, chest pain, abdominal pain
Review of Systems
General: Other (Per HPI)
Objective Data
Data Reviewed
Vital Signs / I&O:
Vital Signs
Temp Pulse Resp BP Pulse Ox
98.3 F 68 20 126/54 98
11/07/24 07:08 11/07/24 07:30 11/07/24 07:08 11/07/24 07:08 11/07/24 07:08
Intake and Output
11/06/24 11/07/24 11/08/24
06:59 06:59 06:59
Intake Total 976 / 976 200 / 200
Output Total 3 / 3
Balance 973 / 973 200 / 200
SaO2: 98
Nasal Cannula flow liters per minute: 2
Physical Exam
General: Respiratory Distress (n) and Comfortable
HEENT: Normocephalic, Anicteric and Moist Mucous Membranes
Cardiovascular: Regular Rhythm
Respiratory: Wheeze (n), Crackles (Bibasilar care home up), Rhonchi, Non-Labored Respirations, Accessory Resp Muscle Use (n) and Stridor (n)
GI: Soft, Non Distended and Non Tender
Neurology: Awake, Alert and No Motor Deficits
Skin: Warm, Good Color, Cyanosis (n) and Jaundice (n)
Labs/Micro/Reports
Lab Data
11/07/24 04:31
11/07/24 04:31
Laboratory Results
11/07/24
06:00
APTT Cancelled
--- NOTE | 2024-11-07 10:27 | W.PN.NEPH.PH ---
Today's Communication / Plan
-
Follow BMP
Assessment/Plan
-
74y F with PMH significant for hypertension, DM-II and chronic ILD s/p COVID who presents to ED complaining of SOB. And pulmonary edema on x-ray treated with IV diuretics with reduced ejection fraction from previous 40 to 45%
Patient has chronic kidney disease and follows with Dr. Baptiste
Renal consult for BERYL prevention
Baseline creatinine between 2 and 2.3
IMP:
Shortness of breath CHF
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
CKD stage 4 (baseline Cr� 2.5)-follows Dr Cast
DM2
CAD hx of IA, hx of stents
HTN
DM
GERD
h/o ACEI angioedema
h/o Henoch-Schonlein purpura
Gastric bypass 2010
ALISHA, mild, with nocturnal hypoxemia
PAD, SFA stent Apr 2020
JESI
Plan:
Creatinine up 2 days post CTA neck
Likely contrast nephropathy
Would like to avoid stacked contrast exposure with this and so would recommend delaying high risk PCI
Follow BMP
May plan for high risk PCI once creatinine returns to baseline
Discussed with patient as well as her son at length
-
-
Date of Service: November 07, 2024
CC / HPI / ROS
-
Chief Complaint:
CKD4
History of Present Illness:
CKD/Cr worse at 2.4
no CP
BP stable
Hemoglobin stable 8.6
Review of Systems:
no CP/SOB
Anxious
Labs
-
Labs:
WBC 7.1 10^3/uL (4.8-10.8) 11/07/24 04:31
RBC 3.09 10^6/uL (4.20-5.40) L 11/07/24 04:31
Hgb 8.6 g/dL (12.0-16.0) L 11/07/24 04:31
Hct 27.6 % (37.0-47.0) L 11/07/24 04:31
Plt Count 173 10^3/uL (130-400) 11/07/24 04:31
Sodium 141 mmol/L (135-145) 11/07/24 04:31
Potassium 4.6 mmol/L (3.5-5.1) 11/07/24 04:31
Chloride 108 mmol/L (98-107) H 11/07/24 04:31
Carbon Dioxide 26 mmol/L (22-30) 11/07/24 04:31
BUN 42 mg/dl (7-17) H 11/07/24 04:31
Creatinine 2.4 mg/dL (0.6-1.0) H 11/07/24 04:31
eGFR 20.68 11/07/24 04:31
Glucose 67 mg/dl (70-99) L 11/07/24 04:31
Calcium 8.6 mg/dl (8.4-10.2) 11/07/24 04:31
Nhh-C-Gfuaplfkuqr Pept 5210 pg/ml 11/04/24 05:54
Albumin 3.3 g/dl (3.5-5.0) L 11/02/24 07:11
Physical Exam
-
Vital Signs:
Vital Signs
Temp Pulse Resp BP Pulse Ox
98.3 F 64 20 126/54 98
11/07/24 07:08 11/07/24 09:30 11/07/24 07:08 11/07/24 07:08 11/07/24 09:21
Cardiovascular:: Regular rate and rhythm
Respiratory:: Bilateral: Coarse
Lung Excursion:: Normal
Abdomen:: Nontender and Soft
Bowel Sounds:: Normal
Extremity Edema:: None: Bilateral:
--- NOTE | 2024-11-07 10:30 | PN.DE.MGMTRT ---
Insulin Management
- -
11/07/2024: Diabetes Management follow up
74 year old female with PMH: HTN, DM-II and chronic ILD s/p COVID who presents to ED complaining of SOB. In the ED, patient was noted to be markedly hypertensive with hypoxemia and CXR consistent with severe pulmonary edema.
Was taking Lantus 38 units @ HS and NovoLog 2-8 units AC. A1C 11.8%, Cr 2.0, eGFR 25.73
States she consistently monitors her blood sugars at home and that her FBG is usually 105 to 120 but her premeal glucose numbers are always elevated despite taking insulin before each meal. She uses SS NovoLog. Diabetes is managed by her PCP.
Patient awake, alert, oriented, sitting up in bed, eating lunch, offers no complaints, able to discuss diabetes care plan.
Glucose has improved, noted for an episode of hypoglycemia to 61 V, POC 75, despite not receiving any Lantus @ HS last night. Pt states that she did not eat anything at dinner time. Will cont to hold Lantus tonight since pt is going to be NPO after
[place] for [facility] tomorrow.
Will reassess after procedure and resume Lantus @ HS. Cont AC NovoLog 5 units and cont low corrective with meals.
Will cont to monitor and adjust AC insulin dose if necessary.
Diabetes History
- -
Type of Diabetes: 2 requiring insulin
Pre-Admission Diabetes Regimen
11/07/24
04:31
Creatinine 2.4 H
Lab Results
Hemoglobin A1c 11.8 % (4.0-5.6) H 10/29/24 03:26
Insulin Pump Settings
IP Diabetes Regimen
11/06/24 11/06/24 11/06/24
11:48 15:49 22:28
Glucose
POC Glucose 244 H 248 H 85
11/07/24 11/07/24 11/07/24
04:31 05:48 08:01
Glucose 67 L
POC Glucose 76 64 L
11/07/24
08:41
Glucose
POC Glucose 128 H
Meal type: Dinner
Amount consumed: 100%
Patient Education
[2024-11-07 11:33] VITALS: BP 97/45
--- NOTE | 2024-11-07 11:34 | W.PN.CARDCBS ---
Addendum entered and electronically signed by Jackson Clements MD 11/07/24 14:33:
I saw and examined the patient.
The Hide Sorter's note was reviewed and I agree with the note.
Comment: Briefly, 74-year-old woman with past medical history of CAD with prior PCI presenting with dyspnea and admitted for acute heart failure. Echo here showed newly reduced left ventricular ejection fraction estimated at 45% with segmental wall
motion abnormalities. Subsequent left heart catheterization identified multivessel CAD and she was evaluated by CT surgery. Ultimately plan is for PCI, however given JESI on CKD plan is to wait for renal function to return to baseline prior to
proceeding.
This morning patient was resting comfortably in the IVU and had no cardiac complaints
Volume status is reasonable on exam, agree with holding IV Lasix
Treatment of CAD with aspirin/Plavix/high intensity statin/Zetia
Continue metoprolol and Imdur as antianginals
Rest per Merlyn Eaton
Original Note:
Today's Communication / Plan
-
Change cath to tomorrow
Patient and family updated
Appreciate input from Nephrology
Impression / Plan
-
PCP: Dr. Carlton
Community Specialist: Dr. VICKY Danielson
Impression:
Presented w/ sudden onset SOB
Acute on chronic HFpEF
Elevated troponin, possible ACS
Hyperglycemia
CAD
s/p 2.5 mm Xience OM1 PCI 01/20/21
s/p Xience prox and overlapping previously placed distal OM-1 05/17/2019
s/p 2.5 mm Xience OM1 PCI 02/12/2019
PAD
s/p R common femoral endarterectomy w/ patch angioplasty and covered R iliac stent 01/2024
s/p right SFA angioplasty and stent 04/2020
h/o COVID 19 w/ residual parenchymal scarring
HTN
HLD
DM2
CKD 4
h/o Henoch-Schonlein purpura
Glaucoma
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
h/o gastric bypass 2010
h/o angioedema on ZAY inhibitors
Aortic atherosclerosis
h/o orthostasis on Terazosin
h/o TIA 2016
Iron deficiency anemia
Echo 08/06/2020: EF 64%. Mild LVH. Normal RV. Mild MAC with mild MR. No AI or . Trace TR. PAP 29 mmHg
Echo 01/19/2021: EF 55-60%, stage I diastolic dysfunction, trace MR, trace TR, PAP 21 mmHg
Echo 10/29/2024: EF 40-45%, Stage I diastolic dysfunction, mild inferolateral and inferior hypokinesis
Plan:
-Patient admitted with chest pain and peak Troponin 0.705. Patient was diuresed and then had cardiac cath that revealed small vessel diabetic disease. Patient was seen by CT surgery for consideration of CABG, but is now recommended PCI.
-Plavix was held for possible CABG, but then restarted with a loading dose of 600 mg on 11/06/24. Patient currently ordered Plavix 75 mg daily. Patient is chronically on Plavix due to h/o PAD and TIA as well.
-Aspirin 81 mg daily added on admission and has been continued throughout.
-Nephrology following as well and Cre increased to 2.4 on 11/07/24, labs reviewed by me. Rise in Cre likely related to carotid CTA from 11/05/24. Plan is to defer cath to 11/08/24 and await repeat labs in AM.
-Nephrology ordered bicarbonate IVFs for cath 11/07/24.
-Patient has been maintained on Heparin gtt since 11/01/24. Labs reviewed by me from 11/05/24 and platelets stable at 200. Will stop Heparin gtt and load with Plavix 600 mg 11/06/24.
-Outpatient dose of hydralazine 25 mg BID has been continued
-New to Imdur ER 30 mg daily this admission
-New to Toprol-XL 25 mg daily this admission, dose held 11/06/24 due to hypotension. Hold parameters for SBP less than 90 or HR less than 55 added by me 11/06/24
-Outpatient dose of spironolactone 25 mg daily has been continued
-Patient is allergic to ZAY, she had angioedema. Will not add ARB/ARNI due to JESI on CKD 4
-Patient initially diuresed with Lasix 40 mg IV BID, but this has been on hold since 10/31/24. Weight is up and down with some weights performed using standing scale and some are bed scale. Patient was taking Lasix 40 mg PO daily prior to admission.
-Echo this admission summarized above, EF is now reduced at 40-45% with new mild inferolateral and inferior hypokinesis
-Talked with patient, son and bedside 11/07/24 and outlined plan to defer cath to 11/08/24. Patient's son, Dangelo, is an EMT and is in agreement.
HPI: Steph is a 74 year old female with PMH of CAD, PAD, HFpEF, HTN, HLD, DM2, CKD, iron deficiency anemia, and glaucoma. Presented to [facility] ER with sudden onset shortness of breath. She was seen in the cardiology office on 10/22/2024 for evaluation
of intermittent chest discomfort which came on at rest following dinner. She had no exertional symptoms. She was started on pantoprazole at the time and reported resolution of her chest pain with this. Last night, after dinner she reported sudden
onset shortness of breath while sitting watching TV. EMS was called and she was started on BiPAP. On arrival to ER, she was noted to be significantly hypertensive and presented on IV nitroglycerin. Chest x-ray consistent with severe pulmonary
edema. She was started on IV Lasix and symptomatically has been improving. CT of chest negative for PE. Cardiology consulted for evaluation given elevated troponin and acute heart failure exacerbation. She reports she has no complaints. Denies
any chest pain and breathing is stable on high flow O2.
Progress Note - Community Specialist
Subjective
Date of Service: November 07, 2024
Feels well, denies chest pain
Objective
Labs:
11/07/24 04:31
11/07/24 04:31
Labs
Hgb 8.6 g/dL (12.0-16.0) L 11/07/24 04:31
Hct 27.6 % (37.0-47.0) L 11/07/24 04:31
Plt Count 173 10^3/uL (130-400) 11/07/24 04:31
PT 14.0 Sec (11.4-14.6) 11/02/24 07:11
INR 1.03 11/02/24 07:11
APTT Cancelled 11/07/24 06:00
Sodium 141 mmol/L (135-145) 11/07/24 04:31
Potassium 4.6 mmol/L (3.5-5.1) 11/07/24 04:31
BUN 42 mg/dl (7-17) H 11/07/24 04:31
Creatinine 2.4 mg/dL (0.6-1.0) H 11/07/24 04:31
Glucose 67 mg/dl (70-99) L 11/07/24 04:31
Vital Signs and I&O:
Vital Signs
Temp Pulse Resp BP Pulse Ox
98.4 F 64 20 126/54 99
11/07/24 11:33 11/07/24 09:30 11/07/24 11:33 11/07/24 07:08 11/07/24 11:33
Vital Signs
Temp Pulse Resp BP Pulse Ox
98.4 F 64 20 126/54 99
11/07/24 11:33 11/07/24 09:30 11/07/24 11:33 11/07/24 07:08 11/07/24 11:33
Intake & Output
11/05/24 11/06/24 11/07/24 11/08/24
06:59 06:59 06:59 06:59
Intake Total 1200 / 1200 976 / 976 200 / 200
Output Total 3 / 3
Balance 1200 / 1200 973 / 973 200 / 200
Physical Exam
Physical Exam
GEN: AAOx3
HEENT: MMM, wearing glasses
LUNGS: RA
CV: SR on tele.
ABD: ND
EXT: No edema B/L LE
NEURO: Gross non-focal
SKIN: No rash
--- NOTE | 2024-11-07 12:09 | CM ---
CM following for DC planning needs.
Met w/ patient + spouse + son at bedside. Introduced CM, explained role.
We reviewed initial assessment. Pt. resides w/ spouse in a private, multi level home w/ 3 TIMOT[address]. Functionally, patient is indep. w/ ADLs, mobility without the use of any assisted device, though can use a RW in the community if long distances.
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
Per prior CM, plan is for home w/ VN. Referral was made [facility], accepted. We did not discuss this during this visit. Will offer again prior to DC.
No other needs antic.
--- NOTE | 2024-11-07 12:17 | W.PN.HOSP.TC ---
Today's Communication/Plan
-
cath in am
Assessment / Plan
Assessment / Plan
Impression:
Patient 74 F with Hx HTN, HLD, DM, CKD p/w NSTEMI and CHF. Cath showed multi-vessel CAD therefore plan for CABG. CT surgery following.
Noted to have carotid artery stenosis, vascular surgery consulted
Seen by vascular surgery and cleared for CABG.
High risk CABG versus high risk PCI.
Ongoing discussion with cardiology and cardiothoracic surgeon.
Plan for high risk PCI.
Creatinine worsening to 2.4, cardiac cath postponed
Assessment/plan:
Left main and multivessel CAD:
Status postcardiac cath
Plan for coronary bypass and workup in progress
Continue aspirin and heparin drip
Continue beta-blockers and statin
Cardiology and CT surgery on board
Continue cardiac monitoring.
Seen by vascular surgery for carotid artery stenosis, cleared for surgery
11/06
High risk CABG versus high risk PCI.
Ongoing discussion with cardiology and cardiothoracic surgery.
11/07
Initial plan for cath today but Secondary to elevated creatinine at 2.4, cardiac cath will be postponed till tomorrow.
Bilateral carotid stenoses, right side likely greater than 70%, left side 50 to 69%.
Seen by vascular surgeon Dr. Stahl.
Recommending coronary revascularization without prior carotid revascularization.
Acute systolic CHF with flash pulmonary edema presentation:
Initially received IV diuresis. IV Lasix on hold currently
Echocardiogram showed EF 40 to 45%
GDMT-on beta-blockers, hydralazine and nitrates, and spironolactone.
Chronic kidney disease stage IV:
Nephrology consult appreciated
Avoid nephrotoxic
cont sodium bicarb
Monitor renal function
Acute hypoxic respiratory failure, POA:
Improved
Back on room air today
Continue to monitor respiratory status closely
Hypertension:
Continue current meds
Diabetes mellitus type 2:
Insulin sliding scale
Monitor blood sugars closely
CODE STATUS: Full code
DVT prophylaxis: Heparin drip.
Diet: Cardiac diet, n.p.o. after midnight.
Total time spent on today's encounter was 65 minutes which included time spent in counseling the patient/family regarding diagnosis and treatment plan as listed above, goals of care, and symptom management. Case was discussed with nursing staff,
specialists, and care coordinators/case management. All labs and imaging personally reviewed by me. Remainder the time spent in detailed review of previous records, lab data, imaging, and other medical provider documentation.
Anticipated Discharge: > 48 hours
Subjective/Interval History
-
Date of Service: November 07, 2024
Patient seen and examined at bedside, denies any chest pain or shortness of breath, no abdominal pain, no nausea, no vomiting, no diarrhea or constipation.
Secondary to elevated creatinine at 2.4, cardiac cath will be postponed till tomorrow.
Objective Data
-
Labs:
Laboratory Results
11/07/24 11/07/24
04:31 06:00
WBC 7.1
Hgb 8.6 L
Hct 27.6 L
Plt Count 173
APTT Cancelled
Sodium 141
Potassium 4.6
Chloride 108 H
Carbon Dioxide 26
BUN 42 H
Creatinine 2.4 H
Glucose 67 L
Calcium 8.6
Vital Signs:
Vital Signs
Temp Pulse Resp BP Pulse Ox
98.4 F 56 20 97/45 99
11/07/24 11:33 11/07/24 11:33 11/07/24 11:33 11/07/24 11:33 11/07/24 11:33
I&O
11/06/24 11/07/24 11/08/24
06:59 06:59 06:59
Intake Total 976 / 976 200 / 200
Output Total 3 / 3
Balance 973 / 973 200 / 200
Physical Exam
-
General: Well Developed, Well Nourished, No Apparent Distress and Comfortable
HEENT: Normocephalic, Atraumatic, Moist Mucous Membranes, No Ptosis, PERRLA and Nose Appears Normal
Respiratory: Clear to Auscultation and Non Labored Respirations
Cardiac: Regular Rhythm and S1/S2
Breast: Deferred by me
GI: Soft, Nontender, Nondistended and Normal Bowel Sounds
Genito-urinary: No Costovertebral Tender
Musculoskeletal: No Clubbing, No Cyanosis and No Edema
Skin: Warm
Neuro: Awake, Alert, Oriented, AO x 3 and No Motor Deficits
Psych: Calm
Data Reviewed
-
Diagnostic Radiology: Image personally visualized and interpreted and Report Reviewed by me
CT Scan: Image personally visualized and interpreted and Report Reviewed by me
Ultrasound: Image personally visualized and interpreted and Report Reviewed by me
MRI: Image personally visualized and interpreted and Report Reviewed by me
Medical Tests (Nuc Med, Echo etc): Image personally visualized and interpreted and Report Reviewed by me
Labs: Labs Reviewed by me
Old Records: Reviewed
[2024-11-07 12:51] LABS: Glucose - Point of Care 147 mg/dl (70-99)
[2024-11-07] MEDS: NOVOLOG FLEXPEN 5 UNITS SC (13:04)
[2024-11-07 15:16] VITALS: BP 110/45
[2024-11-07 16:48] LABS: Glucose - Point of Care 287 mg/dl (70-99)
[2024-11-07] MEDS: NOVOLOG FLEXPEN-LOW RESISTANCE 3 UNITS SC (18:20)
[2024-11-07] MEDS: LIPITOR 80 MG PO (18:21)
[2024-11-07 19:29] VITALS: BP 106/56
[2024-11-07] MEDS: LYRICA 300 MG PO (21:43)
[2024-11-07 22:00] VITALS: BP 107/42
[2024-11-07 22:03] LABS: Glucose - Point of Care 173 mg/dl (70-99)
[2024-11-08 02:43] VITALS: BP 105/79
[2024-11-08 02:47] VITALS: BMI 26.0
[2024-11-08 02:47] LABS: Glucose - Point of Care 131 mg/dl (70-99)
[2024-11-08 03:23] LABS: Blood Urea Nitrogen 46 mg/dl (7-17); Calcium 8.7 mg/dl (8.4-10.2); Carbon Dioxide 27 mmol/L (22-30); Chloride 109 mmol/L (98-107); Estimated Creatinine Clearance 17 ml/min; Glucose 110 mg/dl (70-99); Potassium 4.9 mmol/L (3.5-5.1); Sodium 141 mmol/L (135-145); eGFR 20.68
[2024-11-08 07:01] VITALS: BP 125/54
--- NOTE | 2024-11-08 08:03 | W.PN.PUL.V3 ---
Today's Communication / Plan
-
Wean oxygen
Monitor renal function
Patient cleared for proposed procedures from a pulmonary perspective
Assessment
-
74-year-old female non-smoker with history of hypertension, Henoch-Sanna�nlein purpura, diabetes, chronic kidney disease, had covid pneumonia with chronic interstitial lung disease followed by Dr. Avila presented with increasing shortness of breath
and found to have significant CAD in need of CABG-pulmonary consulted for preoperative pulmonary assessment 11/05/2024.
Sudden onset shortness of breath-flash pulmonary edema
Acute on top of chronic heart failure preserved EF
Elevated troponin
CAD-for possible revascularization
Carotid stenosis
Interstitial lung disease
Anemia-normocytic
Conditions present prior to admission:
Hypertension.
Henoch-Sanna�nlein purpura/IgA vasculitis
Diabetes.
Interstitial lung disease status post [id number] improving
Pulmonary nodule-stable
Restrictive lung disease-TLC 58%
Decreased diffusing capacity-stable at 51%
ALISHA.
Chronic kidney disease stage III.
CAD/multiple stents-MATT to mid/distal OM1 01/2019; overlapping MATT to prox/OM1 04/2019; MATT to OM1, 12/2020
Chronic heart failure diastolic.
GERD.
Glaucoma.
TIA 2016
Old lacunar infarct per CT head/neck 11/04/2024
Severe carotid stenosis
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
Statin Allergy.
PAD/stents-SFA stent 04/2020, status post left SFA popliteal balloon angioplasty and stenting 07/2024, left anterior tibial balloon angioplasty 07/2024, right common femoral endarterectomy 01/2024
Gastric bypass-2010 tonsillectomy. Left ERIC. D&C.
Plan
Pulmonary asked to evaluate patient for perioperative pulmonary risks for CABG surgery
Acute decompensation has improved-suspect flash pulmonary edema
Supplemental oxygen as needed
Incentive spirometry encouraged
Nebulizers if needed-currently not bronchospastic
Outpatient pulmonary office notes were reviewed-last pulmonary function test May 2024 showed significant improvement, however, moderate restriction and moderate reduction in diffusing capacity persisted
PFT 11/06/2024-FEV1 1.39-74%, FVC 1.68-69%, TLC 61%, RV 55%, DLCO-42%, DLCO/VA 72%. Moderate restriction and moderate reduction in diffusing capacity
PFTs continue to improve compared to May 2024
Patient cleared for proposed intervention-high risk PCI and potential high risk CABG with moderate risks for perioperative pulmonary complications including chronic ventilator dependence-patient understands and willing
Nephrology following-significant risk for postoperative worsening of renal function
Serum creatinine still elevated
Vascular surgery saw patient preoperatively as well
Cardiology following-correspondence reviewed
Cardiothoracic surgery following-correspondence reviewed-CABG/ERNST clip versus high risk PCI-ongoing discussion-once renal function stabilizes
High risk PCI 11/07/[address] surgery backup
Diuresis continues as tolerated
Monitor renal function, electrolytes, intake/output, lower extremity edema and weight
Replace electrolytes as needed
DVT prophylaxis-on heparin drip
Pantoprazole for GI prophylaxis
Nutrition
Early mobilization
Outpatient pulmonary follow-up Dr Avila
Diagnostic data:
CXR 03/18/24: stable scarring at the base, no change compared to prior films per report
Chest x-ray 11/18-severe interstitial and alveolar cardiogenic edema, mild peripheral scarring left midlung
CT 02/03/24: emphysematous changes at the base with atelectasisCXR 08/17/22: mild interstitial changes, left greater than right. No acute findings. No change compared to 11/18/21
CT chest 10/29/2024-no evidence for pulm embolism or thoracic aortic dissection, severe diffuse bilateral interstitial and alveolar opacification suggestive of multifocal atypical infection, CHF also on the differential, underlying interstitial
fibrosis noted on CT dated 2020
stress test 02/16/24: Inconclusive, moderate risk study.� EF 59%, fixed inferior lateral defect
Echo 10/29/2024: EF 40-45%, Stage I diastolic dysfunction, mild inferolateral and inferior hypokinesis
[facility] 01/20/21: status post stent OM1
Left heart cardiac catheterization 10/29/24-60% distal left main, hazy 80% ostial circumflex stenosis, 60 to 70% ostial stenosis dominant RCA
Lower extremity ultrasound 10/29/2024-no evidence for left lower extremity DVT
PFT 06/01/24: FVC 1.95/74%, FEV1 1.68/86%, ratio 86.� TLC 2.68/58%, DLCO 9.98/51%.� Moderate restriction with moderate gas exchange defect.� When compared to 2021, TLC is stable.� DLCO has decreased from 11.30 to 9.98 which is not significant,
Scout 08/17/22: FVC 1.09/39%, FEV1 0.89/42%, ratio 82%, significant BD response noted in FVC (17%), FEV1 (24%), and small airways (30%). post BD results: FVC 1.27/45%, FEV1 1.10/52%, ratio 87%. Suggestive of severe restriction.
PFT 12/09/21: FVC 1.97/70%, FEV1 1.72/82%, TLC 2.70/57%, DLCO 11.30/55%. When compared to one year ago, spirometry, lung volumes and diffusion capacity have all improved significantly
spirometry 11/25/21. FVC of 1.16 or 41%,FEV1 is 0.97 or 45%. Ratio of 83%.Scout 02/11/21: FVC 1.55/55%, FEV1 1.31/61%, ratio 86. This it is stable compared to prior PFT
PFT 08/29/20: FVC 1.40/48%, FEV1 1.25/57%, ratio 89.TLC 2.23/46%, DLCO 5.80/28%
PFT 11/06/2024-FEV1 1.39-74%, FVC 1.68-69%, TLC 61%, RV 55%, DLCO-42%, DLCO/VA 72%. Moderate restriction and moderate reduction in diffusing capacity
6MWT 06/01/24: total distance 600 feet, 98% room air, heart rate 90, dyspnea scale 2/10.6MW 10/21/22- RA 100%, HR 79 bpm. ambulated 300 feet and maintained 100%, dyspnea index 0/10
HST 12/04/20: total index 6.5, desaturation elbert 80%.
Subjective Data
-
Date of Service:
Date of Service: November 08, 2024
Chief Complaint: Pulmonary Follow Up, Dyspnea Follow Up and Pneumonia Follow Up
Subjective:
Feels about the same, no increase shortness of breath, no chest pain, abdominal pain
Review of Systems
General: Other (Per HPI)
Objective Data
Data Reviewed
Vital Signs / I&O:
Vital Signs
Temp Pulse Resp BP Pulse Ox
98.7 F 67 20 125/54 100
11/08/24 07:01 11/08/24 07:01 11/08/24 07:01 11/08/24 07:01 11/08/24 07:01
Intake and Output
11/07/24 11/08/24 11/09/24
06:59 06:59 06:59
Intake Total 200 / 200 720 / 720
Balance 200 / 200 720 / 720
SaO2: 100
Nasal Cannula flow liters per minute: 3
Physical Exam
General: Respiratory Distress (n) and Comfortable
HEENT: Normocephalic, Anicteric and Moist Mucous Membranes
Cardiovascular: Regular Rhythm
Respiratory: Wheeze (n), Crackles (Bibasilar long term up), Rhonchi, Non-Labored Respirations, Accessory Resp Muscle Use (n) and Stridor (n)
GI: Soft, Non Distended and Non Tender
Neurology: Awake, Alert and No Motor Deficits
Skin: Warm, Good Color, Cyanosis (n) and Jaundice (n)
Labs/Micro/Reports
Lab Data
11/07/24 04:31
11/08/24 02:46
--- NOTE | 2024-11-08 08:32 | PN.DE.MGMTRT ---
Insulin Management
- -
11/08/2024: Diabetes Management follow up
74 year old female with PMH: HTN, DM-II and chronic ILD s/p COVID who presents to ED complaining of SOB. In the ED, patient was noted to be markedly hypertensive with hypoxemia and CXR consistent with severe pulmonary edema.
Was taking Lantus 38 units @ HS and NovoLog 2-8 units AC. A1C 11.8%, Cr 2.0, eGFR 25.73
States she consistently monitors her blood sugars at home and that her FBG is usually 105 to 120 but her premeal glucose numbers are always elevated despite taking insulin before each meal. She uses SS NovoLog. Diabetes is managed by her PCP.
Patient awake, alert, oriented, sitting up in bed, offers no complaints, able to discuss diabetes care plan.
Glucose has improved, no more episodes of hypoglycemia. Pt has been NPO since UT for [facility] that was planned for today but has been canceled.
HS glucose was 173, Lantus dose was held last night. Glucose down to 131 @ 3AM, FBG 110 V
Will give 1 time dose of NPH 20 units NOW and reduce HS Lantus smith to 14 units. Cont AC NovoLog 5 units and low corrective with meals.
Will cont to monitor and adjust AC insulin dose if necessary.
Diabetes History
- -
Type of Diabetes: 2 requiring insulin
Pre-Admission Diabetes Regimen
11/08/24
02:46
Creatinine 2.4 H
Lab Results
Hemoglobin A1c 11.8 % (4.0-5.6) H 10/29/24 03:26
Insulin Pump Settings
IP Diabetes Regimen
11/07/24 11/07/24 11/07/24
08:41 12:50 16:47
Glucose
POC Glucose 128 H 147 H 287 H
11/07/24 11/08/24 11/08/24
22:01 02:45 02:46
Glucose 110 H
POC Glucose 173 H 131 H
Meal type: Dinner
Meal type: Lunch
Amount consumed: 15%
Amount consumed: 100%
Patient Education
[2024-11-08 08:37] LABS: Glucose - Point of Care 111 mg/dl (70-99)
[2024-11-08] MEDS: FEOSOL 325 MG PO (08:47)
[2024-11-08] MEDS: ALDACTONE 25 MG PO (08:47)
[2024-11-08] MEDS: LOW STRENGTH ASPIRIN 81 MG PO (08:47)
[2024-11-08] MEDS: PROTONIX 40 MG PO (08:47)
[2024-11-08] MEDS: PLAVIX 75 MG PO (08:47)
[2024-11-08] MEDS: ZETIA 10 MG PO (08:47)
[2024-11-08] MEDS: TOPROL XL 25 MG PO (08:48)
[2024-11-08] MEDS: VITAMIN C 250 MG PO (08:48)
[2024-11-08] MEDS: IMDUR (EXTENDED RELEASE) 30 MG PO (08:48)
[2024-11-08] MEDS: APRESOLINE 25 MG PO ×2 (08:48→19:43)
[2024-11-08] MEDS: SODIUM BICARBONATE 650 MG PO ×2 (08:48→19:43)
[2024-11-08] MEDS: NOVOLOG FLEXPEN-LOW RESISTANCE SC ×3 (08:49→18:38)
[2024-11-08] MEDS: NOVOLOG FLEXPEN SC (09:09)
--- NOTE | 2024-11-08 10:34 | PTCARENOTE ---
Rec'd pt this shift awake and alert. Pt NSR on monitor. Pt denies pain, denies sob. AM meds given. Diet resumed this am. See worklist for VS/I and O and assessments.
[2024-11-08] MEDS: NOVOLOG FLEXPEN 5 UNITS SC ×2 (11:04→18:41)
[2024-11-08 11:18] VITALS: BP 107/52
--- NOTE | 2024-11-08 11:35 | CM ---
CM following for DC planning needs.
Met w/ patient at bedside. Pt. informs that she is feeling well. She is frustrated, however, that CATH has been postponed again.
We discussed VN. Pt. was referred to VN prior to her transfer to IVU. Pt. states that she is unsure if she will need this. She reports that she was referred when she thought she was undergoing CT Surg. We agreed to revisit VN tomorrow.
[2024-11-08] MEDS: NOVOLIN N vial 0.2 UNITS SC (12:15)
--- NOTE | 2024-11-08 12:48 | W.PN.NEPH.PH ---
Today's Communication / Plan
-
Follow BMP
Assessment/Plan
-
74y F with PMH significant for hypertension, DM-II and chronic ILD s/p COVID who presents to ED complaining of SOB. And pulmonary edema on x-ray treated with IV diuretics with reduced ejection fraction from previous 40 to 45%
Patient has chronic kidney disease and follows with Dr. Baptiste
Renal consult for BERYL prevention
Baseline creatinine between 2 and 2.3
IMP:
Shortness of breath CHF
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
CKD stage 4 (baseline Cr� 2.5)-follows Dr Cast
DM2
CAD hx of GA, hx of stents
HTN
DM
GERD
h/o ACEI angioedema
h/o Henoch-Schonlein purpura
Gastric bypass 2010
ALISHA, mild, with nocturnal hypoxemia
PAD, SFA stent Apr 2020
JESI
Plan:
Creatinine up post CTA neck
Likely contrast nephropathy
Would like to avoid stacked contrast exposure with this and so would recommend delaying high risk PCI
Follow BMP. I suspect that it will improve in the next day or two
May plan for high risk PCI once creatinine shows improvement
-
-
Date of Service: November 08, 2024
CC / HPI / ROS
-
Chief Complaint:
CKD4
History of Present Illness:
CKD/Cr stuck at 2.4
no CP
BP stable
Review of Systems:
no CP/SOB
Anxious
Labs
-
Labs:
WBC 7.1 10^3/uL (4.8-10.8) 11/07/24 04:31
RBC 3.09 10^6/uL (4.20-5.40) L 11/07/24 04:31
Hgb 8.6 g/dL (12.0-16.0) L 11/07/24 04:31
Hct 27.6 % (37.0-47.0) L 11/07/24 04:31
Plt Count 173 10^3/uL (130-400) 11/07/24 04:31
Sodium 141 mmol/L (135-145) 11/08/24 02:46
Potassium 4.9 mmol/L (3.5-5.1) 11/08/24 02:46
Chloride 109 mmol/L (98-107) H 11/08/24 02:46
Carbon Dioxide 27 mmol/L (22-30) 11/08/24 02:46
BUN 46 mg/dl (7-17) H 11/08/24 02:46
Creatinine 2.4 mg/dL (0.6-1.0) H 11/08/24 02:46
eGFR 20.68 11/08/24 02:46
Glucose 110 mg/dl (70-99) H 11/08/24 02:46
Calcium 8.7 mg/dl (8.4-10.2) 11/08/24 02:46
Evh-F-Nubiqcrbsyy Pept 5210 pg/ml 11/04/24 05:54
Albumin 3.3 g/dl (3.5-5.0) L 11/02/24 07:11
Physical Exam
-
Vital Signs:
Vital Signs
Temp Pulse Resp BP Pulse Ox
98.5 F 68 18 107/52 96
11/08/24 11:20 11/08/24 12:00 11/08/24 11:20 11/08/24 11:18 11/08/24 11:20
Cardiovascular:: Regular rate and rhythm
Respiratory:: Bilateral: Coarse
Lung Excursion:: Normal
Abdomen:: Nontender and Soft
Bowel Sounds:: Normal
Extremity Edema:: None: Bilateral:
--- NOTE | 2024-11-08 12:49 | W.PN.HOSP.TC ---
Today's Communication/Plan
-
Cath in a.m.
Assessment / Plan
Assessment / Plan
Impression:
Patient 74 F with Hx HTN, HLD, DM, CKD p/w NSTEMI and CHF. Cath showed multi-vessel CAD therefore plan for CABG. CT surgery following.
Noted to have carotid artery stenosis, vascular surgery consulted
Seen by vascular surgery and cleared for CABG.
High risk CABG versus high risk PCI.
Ongoing discussion with cardiology and cardiothoracic surgeon.
Plan for high risk PCI.
Creatinine worsening to 2.4, cardiac cath postponed
Assessment/plan:
Left main and multivessel CAD:
Status postcardiac cath
Plan for coronary bypass and workup in progress
Continue aspirin and heparin drip
Continue beta-blockers and statin
Cardiology and CT surgery on board
Continue cardiac monitoring.
Seen by vascular surgery for carotid artery stenosis, cleared for surgery
11/06
High risk CABG versus high risk PCI.
Ongoing discussion with cardiology and cardiothoracic surgery.
11/07
Initial plan for cath today but Secondary to elevated creatinine at 2.4, cardiac cath will be postponed till tomorrow.
11/08
Post 1 cardiac catheter tomorrow for creatinine 2.4
Bilateral carotid stenoses, right side likely greater than 70%, left side 50 to 69%.
Seen by vascular surgeon Dr. Stahl.
Recommending coronary revascularization without prior carotid revascularization.
Acute systolic CHF with flash pulmonary edema presentation:
Initially received IV diuresis. IV Lasix on hold currently
Echocardiogram showed EF 40 to 45%
GDMT-on beta-blockers, hydralazine and nitrates, and spironolactone.
JESI on Chronic kidney disease stage IV:
Nephrology consult appreciated
Avoid nephrotoxic
cont sodium bicarb
Monitor renal function
Acute hypoxic respiratory failure, POA:
Improved
Back on room air today
Continue to monitor respiratory status closely
Hypertension:
Continue current meds
Diabetes mellitus type 2:
Insulin sliding scale
Monitor blood sugars closely
CODE STATUS: Full code
DVT prophylaxis: SCds
Diet: DM diet, n.p.o. after midnight.
Total time spent on today's encounter was 65 minutes which included time spent in counseling the patient/family regarding diagnosis and treatment plan as listed above, goals of care, and symptom management. Case was discussed with nursing staff,
specialists, and care coordinators/case management. All labs and imaging personally reviewed by me. Remainder the time spent in detailed review of previous records, lab data, imaging, and other medical provider documentation.
Anticipated Discharge: > 48 hours
Subjective/Interval History
-
Date of Service: November 08, 2024
Patient seen and examined at bedside, denies any chest pain or shortness of breath, no abdominal pain, no nausea, no vomiting, no diarrhea or constipation.
Cath postponed for tomorrow.
Objective Data
-
Labs:
Laboratory Results
11/08/24
02:46
Sodium 141
Potassium 4.9
Chloride 109 H
Carbon Dioxide 27
BUN 46 H
Creatinine 2.4 H
Glucose 110 H
Calcium 8.7
Vital Signs:
Vital Signs
Temp Pulse Resp BP Pulse Ox
98.5 F 68 18 107/52 96
11/08/24 11:20 11/08/24 12:00 11/08/24 11:20 11/08/24 11:18 11/08/24 11:20
I&O
11/07/24 11/08/24 11/09/24
06:59 06:59 06:59
Intake Total 200 / 200 720 / 720 250 / 250
Balance 200 / 200 720 / 720 250 / 250
Physical Exam
-
General: Well Developed, Well Nourished, No Apparent Distress and Comfortable
HEENT: Normocephalic, Atraumatic, Moist Mucous Membranes, No Ptosis, PERRLA and Nose Appears Normal
Respiratory: Clear to Auscultation and Non Labored Respirations
Cardiac: Regular Rhythm and S1/S2
Breast: Deferred by me
GI: Soft, Nontender, Nondistended and Normal Bowel Sounds
Genito-urinary: No Costovertebral Tender
Musculoskeletal: No Clubbing, No Cyanosis and No Edema
Skin: Warm
Neuro: Awake, Alert, Oriented, AO x 3 and No Motor Deficits
Psych: Calm
Data Reviewed
-
Diagnostic Radiology: Image personally visualized and interpreted and Report Reviewed by me
CT Scan: Image personally visualized and interpreted and Report Reviewed by me
Ultrasound: Image personally visualized and interpreted and Report Reviewed by me
MRI: Image personally visualized and interpreted and Report Reviewed by me
Medical Tests (Nuc Med, Echo etc): Image personally visualized and interpreted and Report Reviewed by me
Labs: Labs Reviewed by me
Old Records: Reviewed
--- NOTE | 2024-11-08 13:08 | W.PN.CARDCBS ---
Addendum entered and electronically signed by Monse Blackmon DO 11/08/24 15:19:
I saw and examined the patient.
The Yarding And Folding Machine Operator's note was reviewed and I agree with the note.
Comment: Patient was seen and examined. She is resting comfortably with no complaints of chest pain or pressure. She is disappointed about not proceeding with cardiac catheterization today but understands the recommendations to wait until renal
function has improved.
GEN: AAOx3, NAD
HEENT: mmm
LUNGS: Bronchovesicular breath sounds, clear bilaterally
CV: Regular, positive S1-S2. No murmur
ABD: Soft, nontender. Positive bowel sounds
EXT: No edema B/L LE
Plan:
74-year-old woman with past medical history of CAD with prior PCI presenting with dyspnea and admitted for acute heart failure. Echo here showed newly reduced left ventricular ejection fraction estimated at 45% with segmental wall motion
abnormalities. Subsequent left heart catheterization identified multivessel CAD and she was evaluated by CT surgery. Ultimately plan is for Impella assisted PCI, however given JESI on CKD plan is to wait for renal function to return to baseline
prior to proceeding.
Volume status reasonable, hold Lasix
Continue aspirin/Plavix and high intensity statin/Zetia
Blood pressure/heart rates acceptable. Continue goal-directed medical therapy
Reassess renal function in the morning
Appreciate nephrology input
Original Note:
Today's Communication / Plan
-
Recheck labs in AM and if Cre improving then will proceed with cath
Impression / Plan
-
PCP: Dr. Carlton
Beater Out: Dr. VICKY Danielson
Impression:
Presented w/ sudden onset SOB
Acute on chronic HFpEF
Elevated troponin, possible ACS
Hyperglycemia
CAD
s/p 2.5 mm Xience OM1 PCI 01/20/21
s/p Xience prox and overlapping previously placed distal OM-1 05/17/2019
s/p 2.5 mm Xience OM1 PCI 02/12/2019
PAD
s/p R common femoral endarterectomy w/ patch angioplasty and covered R iliac stent 01/2024
s/p right SFA angioplasty and stent 04/2020
h/o COVID 19 w/ residual parenchymal scarring
HTN
HLD
DM2
CKD 4
h/o Henoch-Schonlein purpura
Glaucoma
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
h/o gastric bypass 2010
h/o angioedema on ZAY inhibitors
Aortic atherosclerosis
h/o orthostasis on Terazosin
h/o TIA 2016
Iron deficiency anemia
Echo 08/06/2020: EF 64%. Mild LVH. Normal RV. Mild MAC with mild MR. No AI or . Trace TR. PAP 29 mmHg
Echo 01/19/2021: EF 55-60%, stage I diastolic dysfunction, trace MR, trace TR, PAP 21 mmHg
Echo 10/29/2024: EF 40-45%, Stage I diastolic dysfunction, mild inferolateral and inferior hypokinesis
Plan:
-Nephrology following and Cre remains elevated above baseline at 2.4 on 11/08/24, labs reviewed by me. Rise in Cre likely related to carotid CTA from 11/05/24. Plan is to defer cath to 11/09/24 and await repeat labs in AM.
-Nephrology ordered bicarbonate IVFs for cath 11/09/24.
-Patient admitted with chest pain and peak Troponin 0.705. Patient was diuresed and then had cardiac cath that revealed small vessel diabetic disease. Patient was seen by CT surgery for consideration of CABG, but is now recommended PCI.
-Plavix was held for possible CABG, but then restarted with a loading dose of 600 mg on 11/06/24. Patient currently ordered Plavix 75 mg daily. Patient is chronically on Plavix due to h/o PAD and TIA as well.
-Aspirin 81 mg daily added on admission and has been continued throughout.
-Outpatient dose of hydralazine 25 mg BID has been continued
-New to Imdur ER 30 mg daily this admission
-New to Toprol-XL 25 mg daily this admission, dose held 11/06/24 due to hypotension. Hold parameters for SBP less than 90 or HR less than 55 added by me 11/06/24
-Outpatient dose of spironolactone 25 mg daily has been continued
-Patient is allergic to ZAY, she had angioedema. Will not add ARB/ARNI due to JESI on CKD 4
-Patient initially diuresed with Lasix 40 mg IV BID, but this has been on hold since 10/31/24. Weight is up and down with some weights performed using standing scale and some are bed scale. Patient was taking Lasix 40 mg PO daily prior to admission.
-Echo this admission summarized above, EF is now reduced at 40-45% with new mild inferolateral and inferior hypokinesis
HPI: Steph is a 74 year old female with PMH of CAD, PAD, HFpEF, HTN, HLD, DM2, CKD, iron deficiency anemia, and glaucoma. Presented to [facility] ER with sudden onset shortness of breath. She was seen in the cardiology office on 10/22/2024 for evaluation
of intermittent chest discomfort which came on at rest following dinner. She had no exertional symptoms. She was started on pantoprazole at the time and reported resolution of her chest pain with this. Last night, after dinner she reported sudden
onset shortness of breath while sitting watching TV. EMS was called and she was started on BiPAP. On arrival to ER, she was noted to be significantly hypertensive and presented on IV nitroglycerin. Chest x-ray consistent with severe pulmonary
edema. She was started on IV Lasix and symptomatically has been improving. CT of chest negative for PE. Cardiology consulted for evaluation given elevated troponin and acute heart failure exacerbation. She reports she has no complaints. Denies
any chest pain and breathing is stable on high flow O2.
Progress Note - Beater Out
Subjective
Date of Service: November 08, 2024
She feels well, no chest pain
Objective
Labs:
11/07/24 04:31
11/08/24 02:46
Labs
Hgb 8.6 g/dL (12.0-16.0) L 11/07/24 04:31
Hct 27.6 % (37.0-47.0) L 11/07/24 04:31
Plt Count 173 10^3/uL (130-400) 11/07/24 04:31
PT 14.0 Sec (11.4-14.6) 11/02/24 07:11
INR 1.03 11/02/24 07:11
APTT Cancelled 11/07/24 06:00
Sodium 141 mmol/L (135-145) 11/08/24 02:46
Potassium 4.9 mmol/L (3.5-5.1) 11/08/24 02:46
BUN 46 mg/dl (7-17) H 11/08/24 02:46
Creatinine 2.4 mg/dL (0.6-1.0) H 11/08/24 02:46
Glucose 110 mg/dl (70-99) H 11/08/24 02:46
Vital Signs and I&O:
Vital Signs
Temp Pulse Resp BP Pulse Ox
98.5 F 68 18 107/52 96
11/08/24 11:20 11/08/24 12:00 11/08/24 11:20 11/08/24 11:18 11/08/24 11:20
Vital Signs
Temp Pulse Resp BP Pulse Ox
98.5 F 68 18 107/52 96
11/08/24 11:20 11/08/24 12:00 11/08/24 11:20 11/08/24 11:18 11/08/24 11:20
Intake & Output
11/06/24 11/07/24 11/08/24 11/09/24
06:59 06:59 06:59 06:59
Intake Total 976 / 976 200 / 200 720 / 720 250 / 250
Output Total 3 / 3
Balance 973 / 973 200 / 200 720 / 720 250 / 250
Physical Exam
Physical Exam
GEN: AAOx3
HEENT: MMM, wearing glasses
LUNGS: RA
CV: SR on tele.
ABD: ND
EXT: No edema B/L LE
NEURO: Gross non-focal
SKIN: No rash
[2024-11-08] MEDS: SANTYL OINTMENT 1 APPLIC TOPICAL (13:20)
[2024-11-08 15:14] VITALS: BP 104/49
[2024-11-08 16:42] LABS: Glucose - Point of Care 77 mg/dl (70-99)
--- NOTE | 2024-11-08 17:14 | W.PN.UPDATE ---
Update Note
Progress Note Update
After a multidisciplinary discussion, it was ultimately decided that patient will undergo a high risk PCI after her creatinine stabilizes. CT will continue to follow. Continue following daily BMPs
[2024-11-08] MEDS: LIPITOR 80 MG PO (18:41)
[2024-11-08 18:44] VITALS: BP 118/52
--- NOTE | 2024-11-08 19:08 | PTCARENOTE ---
~[id number]: handoff report received from Marilyn Ruiz. Pt AOx4, forgetful, NSR on tele 60s, RA. Pt denies pain at this time. All needs met, call duran within reach.
~[id number]: pt AOx4, forgetful, NSR on tele 60s, RA. Pt denies pain at this time. All needs met, call duran within reach. Handoff report given to ursula RUIZ.
--- NOTE | 2024-11-08 19:10 | PTCARENOTE ---
~[id number]: handoff report received from Marilyn Ruiz. Pt AOx4, NSR on tele 60s, RA. Pt denies pain at this time. All needs met, call duran within reach.
~[id number]: pt AOx4, NSR on tele 60s, RA. Pt denies pain at this time. All needs met, call duran within reach. Handoff report given to ursula RUIZ.
[2024-11-08 19:37] LABS: Glucose - Point of Care 242 mg/dl (70-99)
--- NOTE | 2024-11-08 20:08 | PTCARENOTE ---
Pt rec'd at change of shift eyes closed with plastic knife with peanut butter on it in her hands. Pt awoke easily to verbal stimuli. blood sugar checked result 242. Previous BS had been 77 at 1641. Pt aware of npo status after mn for possible PCI.
[2024-11-08 22:47] VITALS: BP 119/53
[2024-11-08] MEDS: LYRICA 300 MG PO (22:50)
[2024-11-08 23:02] LABS: Glucose - Point of Care 105 mg/dl (70-99)
[2024-11-08] MEDS: LANTUS 0.14 UNITS SC (23:02)
--- NOTE | 2024-11-08 23:16 | PTCARENOTE ---
HS accu check 105. decreased dose of insulin given as ordered. Pt ate peanut butter/jagdeep cracker at HS; aware of npo status after mn
[2024-11-09] VITALS (7 sets, daily range): BP systolic 99–123; BP diastolic 40–55; BMI 26.0
--- NOTE | 2024-11-09 04:22 | PTCARENOTE ---
Pt with c/o runny nose, occ cough. Npo after mn for poss cath today. bath given this morning with cleansing cloths.
[2024-11-09 04:40] LABS: Hemoglobin 9.4 g/dL (12.0-16.0); Mean Corp Hgb Conc. 31.3 g/dL (33.0-37.0); Mean Corpuscular Hgb 28.3 pg (27.0-31.0); Mean Corpuscular Volume 90.4 fL (81.0-99.0); Mean Platelet Volume 13.4 fL (7.4-10.4); Platelet Count 219 10^3/uL (130-400); Red Blood Cell Count 3.32 10^6/uL (4.20-5.40); Red Cell Dist. Width 15.9 % (11.5-14.5); White Blood Cell Count 7.9 10^3/uL (4.8-10.8)
[2024-11-09 04:45] LABS: Blood Urea Nitrogen 46 mg/dl (7-17); Calcium 8.8 mg/dl (8.4-10.2); Carbon Dioxide 26 mmol/L (22-30); Chloride 108 mmol/L (98-107); Estimated Creatinine Clearance 16 ml/min; Glucose 64 mg/dl (70-99); Potassium 4.7 mmol/L (3.5-5.1); Sodium 142 mmol/L (135-145); eGFR 19.69
[2024-11-09] MEDS: DEXTROSE 50% SYRINGE 12.5 GRAMS IV (05:10)
--- NOTE | 2024-11-09 06:12 | PTCARENOTE ---
Pt's am labs showed glucose of 64. House SHRIMP BOAT CAPTAIN contacted. Pt npo for poss PCI therefore 12.5 Dextrose given iv. To note.. pt's am CR elevated to 2.5
--- NOTE | 2024-11-09 08:00 | PN.DE.MGMTRT ---
Insulin Management
- -
11/09/2024: Diabetes Management follow up
74 year old female with PMH: HTN, DM-II and chronic ILD s/p COVID who presents to ED complaining of SOB. In the ED, patient was noted to be markedly hypertensive with hypoxemia and CXR consistent with severe pulmonary edema.
Was taking Lantus 38 units @ HS and NovoLog 2-8 units AC. A1C 11.8%, Cr 2.0, eGFR 25.73
States she consistently monitors her blood sugars at home and that her FBG is usually 105 to 120 but her premeal glucose numbers are always elevated despite taking insulin before each meal. She uses SS NovoLog. Diabetes is managed by her PCP.
Patient awake, alert, oriented, sitting up in bed, offers no complaints, able to discuss diabetes care plan.
Pt has been NPO since [place] for [facility] that was planned for today but has been canceled, due to up trending Cr 2.5 today, tentatively planned for Tuesday
Noted for an episode of hypoglycemia of 64 V this AM.
Will change Lantus schedule to AM given recurrent episodes of hypoglycemia at amador.
Will give reduced dose of 12 units starting tomorrow @ 0800.
Cont AC NovoLog 5 units and low corrective with meals. Discussed with pt and she was agreeable.
Will cont to monitor and adjust AC insulin dose if necessary.
Diabetes History
- -
Type of Diabetes: 2 requiring insulin
Pre-Admission Diabetes Regimen
11/09/24
03:48
Creatinine 2.5 H
Lab Results
Hemoglobin A1c 11.8 % (4.0-5.6) H 10/29/24 03:26
Insulin Pump Settings
IP Diabetes Regimen
11/08/24 11/08/24 11/08/24
08:36 16:41 19:36
Glucose
POC Glucose 111 H 77 242 H
11/08/24 11/09/24
22:59 03:48
Glucose 64 L
POC Glucose 105 H
Meal type: Breakfast
Meal type: Dinner
Meal type: Breakfast
Amount consumed: 100%
Patient Education
--- NOTE | 2024-11-09 08:20 | W.PN.PUL.V3 ---
Today's Communication / Plan
-
Supplemental oxygen as needed
Diuresis per cardiology and nephrology
Monitor serum creatinine
For eventual high risk PCI/backup high risk CABG
Pulmonary will sign off-please call with questions
Assessment
-
74-year-old female non-smoker with history of hypertension, Henoch-Sanna�nlein purpura, diabetes, chronic kidney disease, had covid pneumonia with chronic interstitial lung disease followed by Dr. Avila presented with increasing shortness of breath
and found to have significant CAD in need of CABG-pulmonary consulted for preoperative pulmonary assessment 11/05/2024.
Sudden onset shortness of breath-flash pulmonary edema
Acute on top of chronic heart failure preserved EF
Elevated troponin
CAD-for possible revascularization
Carotid stenosis
Interstitial lung disease
Anemia-normocytic
Conditions present prior to admission:
Hypertension.
Henoch-Sanna�nlein purpura/IgA vasculitis
Diabetes.
Interstitial lung disease status post [id number] improving
Pulmonary nodule-stable
Restrictive lung disease-TLC 58%
Decreased diffusing capacity-stable at 51%
ALISHA.
Chronic kidney disease stage III.
CAD/multiple stents-MATT to mid/distal OM1 01/2019; overlapping MATT to prox/OM1 04/2019; MATT to OM1, 12/2020
Chronic heart failure diastolic.
GERD.
Glaucoma.
TIA 2017
Old lacunar infarct per CT head/neck 11/04/2024
Severe carotid stenosis
Celiac compression syndrome status post IMPROVEMENT ANALYST 2016
Statin Allergy.
PAD/stents-SFA stent 04/2020, status post left SFA popliteal balloon angioplasty and stenting 07/2024, left anterior tibial balloon angioplasty 07/2024, right common femoral endarterectomy 01/2024
Gastric bypass-2010 tonsillectomy. Left ERIC. D&C.
Plan
Pulmonary asked to evaluate patient for perioperative pulmonary risks for CABG surgery
Acute decompensation has improved-suspect flash pulmonary edema
Supplemental oxygen as needed-on 3 L - 100% saturation
Incentive spirometry encouraged
Nebulizers if needed-currently not bronchospastic
Outpatient pulmonary office notes were reviewed-last pulmonary function test May 2024 showed significant improvement, however, moderate restriction and moderate reduction in diffusing capacity persisted
PFT 11/06/2024-FEV1 1.39-74%, FVC 1.68-69%, TLC 61%, RV 55%, DLCO-42%, DLCO/VA 72%. Moderate restriction and moderate reduction in diffusing capacity
PFTs continue to improve compared to May 2024
Patient cleared for proposed intervention-high risk PCI and potential high risk CABG with moderate risks for perioperative pulmonary complications including chronic ventilator dependence-patient understands and willing
Nephrology following-significant risk for postoperative worsening of renal function
Serum creatinine still elevated
Vascular surgery saw patient preoperatively as well
Cardiology following-correspondence reviewed
Cardiothoracic surgery following-correspondence reviewed-CABG/ERNST clip versus high risk PCI-ongoing discussion-once renal function stabilizes
High risk PCI 11/12/[address] surgery backup if serum creatinine improved
Nephrology following-correspondence reviewed
Diuresis continues as tolerated
Monitor renal function, electrolytes, intake/output, lower extremity edema and weight
Replace electrolytes as needed
DVT prophylaxis-on heparin drip
Pantoprazole for GI prophylaxis
Nutrition
Early mobilization
Pulmonary will sign off for now-please call with questions
Outpatient pulmonary follow-up Dr Avila
Diagnostic data:
CXR 03/18/24: stable scarring at the base, no change compared to prior films per report
Chest x-ray 11/18-severe interstitial and alveolar cardiogenic edema, mild peripheral scarring left midlung
CT 02/03/24: emphysematous changes at the base with atelectasisCXR 08/17/22: mild interstitial changes, left greater than right. No acute findings. No change compared to 11/18/21
CT chest 10/29/2024-no evidence for pulm embolism or thoracic aortic dissection, severe diffuse bilateral interstitial and alveolar opacification suggestive of multifocal atypical infection, CHF also on the differential, underlying interstitial
fibrosis noted on CT dated 2020
stress test 02/16/24: Inconclusive, moderate risk study.� EF 59%, fixed inferior lateral defect
Echo 10/29/2024: EF 40-45%, Stage I diastolic dysfunction, mild inferolateral and inferior hypokinesis
LHC 01/20/21: status post stent OM1
Left heart cardiac catheterization 10/29/24-60% distal left main, hazy 80% ostial circumflex stenosis, 60 to 70% ostial stenosis dominant RCA
Lower extremity ultrasound 10/29/2024-no evidence for left lower extremity DVT
PFT 06/01/24: FVC 1.95/74%, FEV1 1.68/86%, ratio 86.� TLC 2.68/58%, DLCO 9.98/51%.� Moderate restriction with moderate gas exchange defect.� When compared to 2021, TLC is stable.� DLCO has decreased from 11.30 to 9.98 which is not significant,
Scout 08/17/22: FVC 1.09/39%, FEV1 0.89/42%, ratio 82%, significant BD response noted in FVC (17%), FEV1 (24%), and small airways (30%). post BD results: FVC 1.27/45%, FEV1 1.10/52%, ratio 87%. Suggestive of severe restriction.
PFT 12/09/21: FVC 1.97/70%, FEV1 1.72/82%, TLC 2.70/57%, DLCO 11.30/55%. When compared to one year ago, spirometry, lung volumes and diffusion capacity have all improved significantly
spirometry 11/25/21. FVC of 1.16 or 41%,FEV1 is 0.97 or 45%. Ratio of 83%.[place] 02/11/21: FVC 1.55/55%, FEV1 1.31/61%, ratio 86. This it is stable compared to prior PFT
PFT 08/29/20: FVC 1.40/48%, FEV1 1.25/57%, ratio 89.TLC 2.23/46%, DLCO 5.80/28%
PFT 11/06/2024-FEV1 1.39-74%, FVC 1.68-69%, TLC 61%, RV 55%, DLCO-42%, DLCO/VA 72%. Moderate restriction and moderate reduction in diffusing capacity
6MWT 06/01/24: total distance 600 feet, 98% room air, heart rate 90, dyspnea scale 2/10.6MW 10/21/22- RA 100%, HR 79 bpm. ambulated 300 feet and maintained 100%, dyspnea index 0/10
HST 12/04/20: total index 6.5, desaturation elbert 80%.
Subjective Data
-
Date of Service:
Date of Service: November 09, 2024
Chief Complaint: Pulmonary Follow Up, Dyspnea Follow Up and Pneumonia Follow Up
Subjective:
Is no complaints of worsening shortness of breath, chest pain, chest tightness, wheezing, serum creatinine elevated and likely not going for PCI today
Review of Systems
General: Other ( per HPI)
Objective Data
Data Reviewed
Vital Signs / I&O:
Vital Signs
Temp Pulse Resp BP Pulse Ox
98.3 F 71 16 118/55 98
11/09/24 07:33 11/09/24 04:00 11/09/24 07:33 11/09/24 03:41 11/09/24 07:33
Intake and Output
11/08/24 11/09/24 11/10/24
06:59 06:59 06:59
Intake Total 720 / 720 370 / 370
Balance 720 / 720 370 / 370
SaO2: 98
Nasal Cannula flow liters per minute: 3
Physical Exam
General: Respiratory Distress (n) and Comfortable
HEENT: Normocephalic, Anicteric and Moist Mucous Membranes
Cardiovascular: Regular Rhythm
Respiratory: Wheeze (n), Crackles ([facility] up), Rhonchi, Non-Labored Respirations, Accessory Resp Muscle Use (n) and Stridor (n)
GI: Soft, Non Distended and Non Tender
Neurology: Awake, Alert and No Motor Deficits
Skin: Warm, Good Color, Cyanosis (n) and Jaundice (n)
Labs/Micro/Reports
Lab Data
11/09/24 03:48
11/09/24 03:48
[2024-11-09] MEDS: APRESOLINE 25 MG PO ×2 (08:29→19:32)
[2024-11-09] MEDS: PLAVIX 75 MG PO (08:29)
[2024-11-09] MEDS: VITAMIN C 250 MG PO (08:29)
[2024-11-09] MEDS: ZETIA 10 MG PO (08:29)
[2024-11-09] MEDS: TOPROL XL 25 MG PO (08:29)
[2024-11-09 08:30] LABS: Glucose - Point of Care 115 mg/dl (70-99)
[2024-11-09] MEDS: FEOSOL 325 MG PO (08:30)
[2024-11-09] MEDS: SODIUM BICARBONATE 650 MG PO ×2 (08:30→19:32)
[2024-11-09] MEDS: NOVOLOG FLEXPEN-LOW RESISTANCE SC ×2 (08:30→17:40)
[2024-11-09] MEDS: ALDACTONE 25 MG PO (08:30)
[2024-11-09] MEDS: LOW STRENGTH ASPIRIN 81 MG PO (08:30)
[2024-11-09] MEDS: IMDUR (EXTENDED RELEASE) 30 MG PO (08:30)
[2024-11-09] MEDS: PROTONIX 40 MG PO (08:30)
[2024-11-09] MEDS: SANTYL OINTMENT TOPICAL (08:31)
--- NOTE | 2024-11-09 08:48 | W.PN.CARDCBS ---
Addendum entered and electronically signed by Monse Blackmon DO 11/09/24 11:39:
I saw and examined the patient.
The Baker Chef's note was reviewed and I agree with the note.
Comment: Patient was seen and examined. Patient's was on the phone during our visit. No events overnight. No chest pain or pressure. No dizziness.
GEN: AAOx3, NAD
HEENT: mmm
LUNGS: Bronchovesicular breath sounds, clear bilaterally
CV: Regular, positive S1-S2. No murmur
ABD: Soft, nontender. Positive bowel sounds
EXT: No edema B/L LE
Plan:
74-year-old woman with past medical history of CAD with prior PCI presenting with dyspnea and admitted for acute heart failure. Echo here showed newly reduced left ventricular ejection fraction estimated at 45% with segmental wall motion
abnormalities. Subsequent left heart catheterization identified multivessel CAD and she was evaluated by CT surgery. Ultimately plan is for Impella assisted PCI, however given JESI on CKD plan is to wait for renal function to return to baseline
prior to proceeding.
Volume status reasonable, hold Lasix
Continue aspirin/Plavix and high intensity statin/Zetia
Blood pressure/heart rates acceptable. Continue goal-directed medical therapy
Renal function remains prohibitive with higher risk for further decompensation if proceed with left heart catheterization now. Patient and family are aware of these risks and agree with waiting till renal function returns to baseline
Hopeful that renal function will continue to improve over the weekend with tentative cath planned for 11/12/2024.
Appreciate nephrology input
Original Note:
Today's Communication / Plan
-
no cath today due rising creatinine
if downtrending over weekend will proceed with cath Tuesday11/12/2024
Impression / Plan
-
PCP: Dr. Carlton
Bellows Filler: Dr. VICKY Danielson
Impression:
Presented 10/28/2024 w/ sudden onset SOB
Acute on chronic HFpEF
Elevated troponin, possible ACS
Hyperglycemia
CAD
s/p 2.5 mm Xience OM1 PCI 01/20/21
s/p Xience prox and overlapping previously placed distal OM-1 05/17/2019
s/p 2.5 mm Xience OM1 PCI 02/12/2019
PAD
s/p R common femoral endarterectomy w/ patch angioplasty and covered R iliac stent 01/2024
s/p right SFA angioplasty and stent 04/2020
h/o COVID w/ residual parenchymal scarring
HTN
HLD
DM2
CKD 4
h/o Henoch-Schonlein purpura
Glaucoma
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
h/o gastric bypass 2010
h/o angioedema on ZAY inhibitors
Aortic atherosclerosis
h/o orthostasis on Terazosin
h/o TIA 2016
Iron deficiency anemia
Echo 08/06/2020: EF 64%. Mild LVH. Normal RV. Mild MAC with mild MR. No AI or . Trace TR. PAP 29 mmHg
Echo 01/19/2021: EF 55-60%, stage I diastolic dysfunction, trace MR, trace TR, PAP 21 mmHg
Echo 10/29/2024: EF 40-45%, Stage I diastolic dysfunction, mild inferolateral and inferior hypokinesis
Cardiac cath 11/01/2024: Left main 60% distal. LAD 40% ostial. Circumflex: Hazy 80% ostial, stents in OM1 with moderate diffuse ISR, smaller daughter branch of OM1 with 70% stenosis. RCA 60 to 70% ostial stenosis
Plan:
-Nephrology following and Cre remains elevated above baseline at 2.5 on 11/09/24, up from 2.4 11/08/2024. Baseline creat 2-2.3. Rise in Cre likely related to carotid CTA from 11/05/24. Plan is to defer cath to 11/12/24 and trend creatinine over
weekend
-Patient admitted with chest pain and peak Troponin 0.705. Patient was diuresed and then had cardiac cath that revealed small vessel diabetic disease. Patient was seen by CT surgery for consideration of CABG, but now for Impella-assisted PCI
-Plavix was held for possible CABG, but then restarted with a loading dose of 600 mg on 11/06/24. Patient currently ordered Plavix 75 mg daily. Patient is chronically on Plavix due to h/o PAD and TIA as well.
-Aspirin 81 mg daily added on admission and has been continued throughout.
-Outpatient dose of hydralazine 25 mg BID has been continued
-New to Imdur ER 30 mg daily this admission
-New to Toprol-XL 25 mg daily this admission. Hold parameters for SBP less than 90 or HR less than 55 added 11/06/24
-Outpatient dose of spironolactone 25 mg daily has been continued
-Patient is allergic to ZAY, she had angioedema. Will not add ARB/ARNI due to JESI on CKD 4
-Patient initially diuresed with Lasix 40 mg IV BID, but this has been on hold since 10/31/24. Wt has been stable 132-133 past 5 days. Weight is up and down with some weights performed using standing scale and some are bed scale. Patient was taking
Lasix 40 mg PO daily prior to admission.
-Echo this admission summarized above, EF is now reduced at 40-45% with new mild inferolateral and inferior hypokinesis
HPI: Steph is a 74 year old female with PMH of CAD, PAD, HFpEF, HTN, HLD, DM2, CKD, iron deficiency anemia, and glaucoma. Presented to [facility] ER with sudden onset shortness of breath. She was seen in the cardiology office on 10/22/2024 for evaluation
of intermittent chest discomfort which came on at rest following dinner. She had no exertional symptoms. She was started on pantoprazole at the time and reported resolution of her chest pain with this. Last night, after dinner she reported sudden
onset shortness of breath while sitting watching TV. EMS was called and she was started on BiPAP. On arrival to ER, she was noted to be significantly hypertensive and presented on IV nitroglycerin. Chest x-ray consistent with severe pulmonary
edema. She was started on IV Lasix and symptomatically has been improving. CT of chest negative for PE. Cardiology consulted for evaluation given elevated troponin and acute heart failure exacerbation. She reports she has no complaints. Denies
any chest pain and breathing is stable on high flow O2.
Progress Note - Bellows Filler
Subjective
Date of Service: November 09, 2024
no CP
creat up to 2.5 today
Objective
Labs:
11/09/24 03:48
11/09/24 03:48
Labs
Hgb 9.4 g/dL (12.0-16.0) L 11/09/24 03:48
Hct 30.0 % (37.0-47.0) L 11/09/24 03:48
Plt Count 219 10^3/uL (130-400) D 11/09/24 03:48
PT 14.0 Sec (11.4-14.6) 11/02/24 07:11
INR 1.03 11/02/24 07:11
APTT Cancelled 11/07/24 06:00
Sodium 142 mmol/L (135-145) 11/09/24 03:48
Potassium 4.7 mmol/L (3.5-5.1) 11/09/24 03:48
BUN 46 mg/dl (7-17) H 11/09/24 03:48
Creatinine 2.5 mg/dL (0.6-1.0) H 11/09/24 03:48
Glucose 64 mg/dl (70-99) L 11/09/24 03:48
Vital Signs and I&O:
Vital Signs
Temp Pulse Resp BP Pulse Ox
98.3 F 63 16 110/43 98
11/09/24 07:33 11/09/24 08:30 11/09/24 07:33 11/09/24 08:30 11/09/24 08:20
Vital Signs
Temp Pulse Resp BP Pulse Ox
98.3 F 63 16 110/43 98
11/09/24 07:33 11/09/24 08:30 11/09/24 07:33 11/09/24 08:30 11/09/24 08:20
Intake & Output
11/07/24 11/08/24 11/09/24 11/10/24
06:59 06:59 06:59 06:59
Intake Total 200 / 200 720 / 720 370 / 370
Balance 200 / 200 720 / 720 370 / 370
Physical Exam
Physical Exam
GEN: No distress, awake, Ox3
HEENT: supple, anicteric, mmm
LUNGS: crackles at bases
CV: Reg, S1/S2, 1/6 syst LSB, no murmur
ABD: soft, BS+, NT/ND
EXT: No edema
NEURO: Gross non-focal
SKIN: B/L heal wounds w/ dressing, L ankle wound
--- NOTE | 2024-11-09 08:53 | W.PN.NEPH.PH ---
Today's Communication / Plan
-
Withhold cardiac catheterization due to rising creatinine
Follow-up BMP
Assessment/Plan
-
74y F with PMH significant for hypertension, DM-II and chronic ILD s/p COVID who presents to ED complaining of SOB. And pulmonary edema on x-ray treated with IV diuretics with reduced ejection fraction from previous 40 to 45%
Patient has chronic kidney disease and follows with Dr. Baptiste
Renal consult for BERYL prevention
Baseline creatinine between 2 and 2.3
IMP:
Shortness of breath CHF
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
CKD stage 4 (baseline Cr� 2.5)-follows Dr Cast
DM2
CAD hx of [place], hx of stents
HTN
DM
GERD
h/o ACEI angioedema
h/o Henoch-Schonlein purpura
Gastric bypass 2010
ALISHA, mild, with nocturnal hypoxemia
PAD, SFA stent Apr 2020
JESI
Plan:
Creatinine up post CTA neck now up to 2.5
Likely contrast nephropathy
Would like to avoid stacked contrast exposure with this and so would recommend delaying high risk PCI
Follow BMP
Hemodynamically stable
May plan for high risk PCI once creatinine shows improvement
-
-
Date of Service: November 09, 2024
CC / HPI / ROS
-
Chief Complaint:
CKD4
History of Present Illness:
CKD/Cr stuck at 2.5
BP stable
Review of Systems:
no CP/SOB
Anxious
Labs
-
Labs:
WBC 7.9 10^3/uL (4.8-10.8) 11/09/24 03:48
RBC 3.32 10^6/uL (4.20-5.40) L 11/09/24 03:48
Hgb 9.4 g/dL (12.0-16.0) L 11/09/24 03:48
Hct 30.0 % (37.0-47.0) L 11/09/24 03:48
Plt Count 219 10^3/uL (130-400) D 11/09/24 03:48
Sodium 142 mmol/L (135-145) 11/09/24 03:48
Potassium 4.7 mmol/L (3.5-5.1) 11/09/24 03:48
Chloride 108 mmol/L (98-107) H 11/09/24 03:48
Carbon Dioxide 26 mmol/L (22-30) 11/09/24 03:48
BUN 46 mg/dl (7-17) H 11/09/24 03:48
Creatinine 2.5 mg/dL (0.6-1.0) H 11/09/24 03:48
eGFR 19.69 11/09/24 03:48
Glucose 64 mg/dl (70-99) L 11/09/24 03:48
Calcium 8.8 mg/dl (8.4-10.2) 11/09/24 03:48
Bbz-J-Rgcrgyloasa Pept 5210 pg/ml 11/04/24 05:54
Albumin 3.3 g/dl (3.5-5.0) L 11/02/24 07:11
Physical Exam
-
Vital Signs:
Vital Signs
Temp Pulse Resp BP Pulse Ox
98.3 F 63 16 110/43 98
11/09/24 07:33 11/09/24 08:30 11/09/24 07:33 11/09/24 08:30 11/09/24 08:20
Cardiovascular:: Regular rate and rhythm
Respiratory:: Bilateral: Coarse
Lung Excursion:: Normal
Abdomen:: Nontender and Soft
Bowel Sounds:: Normal
Extremity Edema:: None: Bilateral:
[2024-11-09] MEDS: NOVOLOG FLEXPEN 5 UNITS SC ×3 (10:05→17:39)
--- NOTE | 2024-11-09 10:27 | WOUNDNOTE ---
L LOWER LEG ANTERIOR ANKLE
--- NOTE | 2024-11-09 10:30 | WOUNDNOTE ---
KINZA RN NOTE: Followed up today regarding wounds. L anterior lower leg/ankle ulcer healed, intact scar and dry scab. Applied Vaseline to site.
L lateral foot ulcer less deep and appears smaller. Recommend continue Santyl dressing. Heels blanchable pink, no changes to L heel, adhesive foams changed. Patient turned self to sides, R buttock scar intact, darker chronic discolored skin visible.
Updated nurse Landen on the above and will adjust wound care orders/work list.
--- NOTE | 2024-11-09 12:21 | CM ---
CM following for DC planning needs.
Met w/ patient at bedside. Mult. family members present as well.
Pt. is anticipating to remain here thru the weekend in hopes for a CATH on Tuesday.
Per our prior conversation, referral was made to VN. Pt. uncertain if this is needed at this time. Will revisit this prior to DC.
Plan is for home once stable +/- VN
[2024-11-09 12:24] LABS: Glucose - Point of Care 271 mg/dl (70-99)
[2024-11-09] MEDS: NOVOLOG FLEXPEN-LOW RESISTANCE 3 UNITS SC (13:18)
--- NOTE | 2024-11-09 14:24 | W.PN.HOSP.TC ---
Today's Communication/Plan
-
Postpone cardiac catheter tomorrow.
Assessment / Plan
Assessment / Plan
Impression:
Patient 74 F with Hx HTN, HLD, DM, CKD p/w NSTEMI and CHF. Cath showed multi-vessel CAD therefore plan for CABG. CT surgery following.
Noted to have carotid artery stenosis, vascular surgery consulted
Seen by vascular surgery and cleared for CABG.
High risk CABG versus high risk PCI.
Ongoing discussion with cardiology and cardiothoracic surgeon.
Plan for high risk PCI.
Creatinine was elevated, cardiac cath postponed
Assessment/plan:
Left main and multivessel CAD:
Status postcardiac cath
Plan for coronary bypass and workup in progress
Continue aspirin and heparin drip
Continue beta-blockers and statin
Cardiology and CT surgery on board
Continue cardiac monitoring.
Seen by vascular surgery for carotid artery stenosis, cleared for surgery
11/06
High risk CABG versus high risk PCI.
Ongoing discussion with cardiology and cardiothoracic surgery.
11/07
Initial plan for cath today but Secondary to elevated creatinine at 2.4, cardiac cath will be postponed till tomorrow.
11/08
Postpone cardiac catheter tomorrow for creatinine 2.4
11/08
Postpone cardiac catheter tomorrow for creatinine 2.5
Bilateral carotid stenoses, right side likely greater than 70%, left side 50 to 69%.
Seen by vascular surgeon Dr. Stahl.
Recommending coronary revascularization without prior carotid revascularization.
Acute systolic CHF with flash pulmonary edema presentation:
Initially received IV diuresis. IV Lasix on hold currently
Echocardiogram showed EF 40 to 45%
GDMT-on beta-blockers, hydralazine and nitrates, and spironolactone.
JESI on Chronic kidney disease stage IV:
Nephrology consult appreciated
Avoid nephrotoxic
cont sodium bicarb
Monitor renal function
Acute hypoxic respiratory failure, POA:
Improved
Back on room air today
Continue to monitor respiratory status closely
Hypertension:
Continue current meds
Diabetes mellitus type 2:
Insulin sliding scale
Monitor blood sugars closely
CODE STATUS: Full code
DVT prophylaxis: SCds
Diet: DM diet, n.p.o. after midnight.
Total time spent on today's encounter was 65 minutes which included time spent in counseling the patient/family regarding diagnosis and treatment plan as listed above, goals of care, and symptom management. Case was discussed with nursing staff,
specialists, and care coordinators/case management. All labs and imaging personally reviewed by me. Remainder the time spent in detailed review of previous records, lab data, imaging, and other medical provider documentation.
Anticipated Discharge: > 48 hours
Subjective/Interval History
-
Date of Service: November 09, 2024
Patient seen and examined at bedside, denies any chest pain or shortness of breath, no abdominal pain, no nausea, no vomiting, no diarrhea or constipation.
Cardiac cath postponed
Objective Data
-
Labs:
Laboratory Results
11/09/24
03:48
WBC 7.9
Hgb 9.4 L
Hct 30.0 L
Plt Count 219 D
Sodium 142
Potassium 4.7
Chloride 108 H
Carbon Dioxide 26
BUN 46 H
Creatinine 2.5 H
Glucose 64 L
Calcium 8.8
Vital Signs:
Vital Signs
Temp Pulse Resp BP Pulse Ox
98.4 F 58 16 104/40 98
11/09/24 11:47 11/09/24 13:00 11/09/24 11:47 11/09/24 11:45 11/09/24 11:47
I&O
11/08/24 11/09/24 11/10/24
06:59 06:59 06:59
Intake Total 720 / 720 370 / 370
Balance 720 / 720 370 / 370
Physical Exam
-
General: Well Developed, Well Nourished, No Apparent Distress and Comfortable
HEENT: Normocephalic, Atraumatic, Moist Mucous Membranes, No Ptosis, PERRLA and Nose Appears Normal
Respiratory: Clear to Auscultation and Non Labored Respirations
Cardiac: Regular Rhythm and S1/S2
Breast: Deferred by me
GI: Soft, Nontender, Nondistended and Normal Bowel Sounds
Genito-urinary: No Costovertebral Tender
Musculoskeletal: No Clubbing, No Cyanosis and No Edema
Skin: Warm
Neuro: Awake, Alert, Oriented, AO x 3 and No Motor Deficits
Psych: Calm
Data Reviewed
-
Diagnostic Radiology: Image personally visualized and interpreted and Report Reviewed by me
CT Scan: Image personally visualized and interpreted and Report Reviewed by me
Ultrasound: Image personally visualized and interpreted and Report Reviewed by me
MRI: Image personally visualized and interpreted and Report Reviewed by me
Medical Tests (Nuc Med, Echo etc): Image personally visualized and interpreted and Report Reviewed by me
Labs: Labs Reviewed by me
Old Records: Reviewed
[2024-11-09 17:39] LABS: Glucose - Point of Care 116 mg/dl (70-99)
[2024-11-09] MEDS: LIPITOR 80 MG PO (17:41)
--- NOTE | 2024-11-09 19:16 | PTCARENOTE ---
~9438-3146: Handoff report received from nightshift RN. Pt Aox4, NSR on tele 50s-60s, SBP 110s-120s. Pt denies pain at this time. Ax1 with walker to bathroom. Patient visited by cardiology team, warp hauler and ems educator, plan to wait
until tuesday for cath pending creat level on tuesday. Wound care nurse in to see patient as well, wound care completed by wound nurse. Communications with cardiology and nephrology to see if anything can be done to help lower pt creat, no new orders
at this time. All needs met, call duran within reach.
~[id number]: Patient resting in room. Ax1 walker to bathroom. Family visited during the afternoon. Ax4, NSR on tele, RA. no pain at this time.
~5514-2901: Patient resting in bed, VSS at this time. Handoff report given to nightshift RN.
[2024-11-09] MEDS: LYRICA 300 MG PO (22:05)
[2024-11-09 22:09] LABS: Glucose - Point of Care 85 mg/dl (70-99)
[2024-11-10] VITALS (9 sets, daily range): BP systolic 90–116; BP diastolic 44–59; BMI 26.1
[2024-11-10 05:41] LABS: Blood Urea Nitrogen 45 mg/dl (7-17); Calcium 8.6 mg/dl (8.4-10.2); Carbon Dioxide 26 mmol/L (22-30); Chloride 109 mmol/L (98-107); Estimated Creatinine Clearance 15 ml/min; Glucose 82 mg/dl (70-99); Potassium 4.8 mmol/L (3.5-5.1); Sodium 140 mmol/L (135-145); eGFR 18.78
[2024-11-10 07:58] LABS: Glucose - Point of Care 98 mg/dl (70-99)
[2024-11-10] MEDS: NOVOLOG FLEXPEN-LOW RESISTANCE SC ×3 (08:31→17:16)
[2024-11-10] MEDS: NOVOLOG FLEXPEN 5 UNITS SC ×3 (08:32→17:16)
[2024-11-10] MEDS: ALDACTONE PO (08:32)
[2024-11-10] MEDS: APRESOLINE PO (08:33)
[2024-11-10] MEDS: LANTUS 0.12 UNITS SC (08:33)
[2024-11-10] MEDS: FEOSOL 325 MG PO (08:33)
[2024-11-10] MEDS: PROTONIX 40 MG PO (08:34)
[2024-11-10] MEDS: SODIUM BICARBONATE 650 MG PO ×2 (08:34→20:07)
[2024-11-10] MEDS: PLAVIX 75 MG PO (08:34)
[2024-11-10] MEDS: LOW STRENGTH ASPIRIN 81 MG PO (08:34)
[2024-11-10] MEDS: ZETIA 10 MG PO (08:35)
[2024-11-10] MEDS: VITAMIN C 250 MG PO (08:35)
[2024-11-10] MEDS: TOPROL XL 25 MG PO (08:35)
[2024-11-10] MEDS: FLUSH (NSS) 2 FLUSH IV (08:36)
[2024-11-10] MEDS: IMDUR (EXTENDED RELEASE) 30 MG PO (08:36)
--- NOTE | 2024-11-10 08:58 | W.PN.NEPH.PH ---
Today's Communication / Plan
-
Discontinue hydralazine and Aldactone
500 cc normal saline given
Follow BMP
Assessment/Plan
-
74y F with PMH significant for hypertension, DM-II and chronic ILD s/p COVID who presents to ED complaining of SOB. And pulmonary edema on x-ray treated with IV diuretics with reduced ejection fraction from previous 40 to 45%
Patient has chronic kidney disease and follows with Dr. Baptiste
Renal consult for BERYL prevention
Baseline creatinine between 2 and 2.3
IMP:
Shortness of breath CHF
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
CKD stage 4 (baseline Cr� 2.5)-follows Dr Cast
DM2
CAD hx of [place], hx of stents
HTN
DM
GERD
h/o ACEI angioedema
h/o Henoch-Schonlein purpura
Gastric bypass 2010
ALISHA, mild, with nocturnal hypoxemia
PAD, SFA stent Apr 2020
JESI
Plan:
Creatinine up post CTA neck now up to 2.6
Likely contrast nephropathy but low MAP overnight not helping situation
With hold hydralazine and Aldactone
Follow BMP
Patient at high clinical risk with worsening renal failure requiring discontinuation of antihypertensives to support blood pressure,will provide 500cc NSS
May plan for high risk PCI once creatinine shows improvement
-
-
Date of Service: November 10, 2024
CC / HPI / ROS
-
Chief Complaint:
CKD4
History of Present Illness:
CKD/Cr worsening to 2.6
Hypotension
Review of Systems:
no CP/SOB
Anxious
Weight stable
Labs
-
Labs:
WBC 7.9 10^3/uL (4.8-10.8) 11/09/24 03:48
RBC 3.32 10^6/uL (4.20-5.40) L 11/09/24 03:48
Hgb 9.4 g/dL (12.0-16.0) L 11/09/24 03:48
Hct 30.0 % (37.0-47.0) L 11/09/24 03:48
Plt Count 219 10^3/uL (130-400) D 11/09/24 03:48
Sodium 140 mmol/L (135-145) 11/10/24 04:36
Potassium 4.8 mmol/L (3.5-5.1) 11/10/24 04:36
Chloride 109 mmol/L (98-107) H 11/10/24 04:36
Carbon Dioxide 26 mmol/L (22-30) 11/10/24 04:36
BUN 45 mg/dl (7-17) H 11/10/24 04:36
Creatinine 2.6 mg/dL (0.6-1.0) H 11/10/24 04:36
eGFR 18.78 11/10/24 04:36
Glucose 82 mg/dl (70-99) 11/10/24 04:36
Calcium 8.6 mg/dl (8.4-10.2) 11/10/24 04:36
Udd-J-Udxtckufsyn Pept 5210 pg/ml 11/04/24 05:54
Albumin 3.3 g/dl (3.5-5.0) L 11/02/24 07:11
Physical Exam
-
Vital Signs:
Vital Signs
Temp Pulse Resp BP Pulse Ox
98.7 F 71 16 101/51 98
11/10/24 08:30 11/10/24 08:35 11/10/24 08:30 11/10/24 08:35 11/10/24 08:30
Cardiovascular:: Regular rate and rhythm
Respiratory:: Bilateral: Coarse
Lung Excursion:: Normal
Abdomen:: Nontender and Soft
Bowel Sounds:: Normal
Extremity Edema:: None: Bilateral:
[2024-11-10] MEDS: NSS 500 IV (10:10)
--- NOTE | 2024-11-10 10:46 | PTCARENOTE ---
Received patient this morning resting in bed, offers no complaints, patient is aware that creatinine remains elevated. BP LUE 101/51, BP RUE 92/44. Patient seen by Dr. Cast and plan for NS IV bolus. Patient instructed on need for accurate I&O.
--- NOTE | 2024-11-10 11:20 | W.PN.CARDCBS ---
Today's Communication / Plan
-
Held Aldactone and hydralazine
Normal saline bolus per nephrology
Monitor blood pressure trends; avoid hypotension
Impression / Plan
-
PCP: Dr. Carlton
Press Washer: Dr. VICKY Danielson
Impression:
Presented 10/28/2024 w/ sudden onset SOB
Acute on chronic HFpEF
Elevated troponin, possible ACS
Hyperglycemia
CAD
s/p 2.5 mm Xience OM1 PCI 01/20/21
s/p Xience prox and overlapping previously placed distal OM-1 05/17/2019
s/p 2.5 mm Xience OM1 PCI 02/12/2019
PAD
s/p R common femoral endarterectomy w/ patch angioplasty and covered R iliac stent 01/2024
s/p right SFA angioplasty and stent 04/2020
h/o COVID 19 w/ residual parenchymal scarring
HTN
HLD
DM2
CKD 4
h/o Henoch-Schonlein purpura
Glaucoma
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
h/o gastric bypass 2010
h/o angioedema on ZAY inhibitors
Aortic atherosclerosis
h/o orthostasis on Terazosin
h/o TIA 2016
Iron deficiency anemia
Echo 08/06/2020: EF 64%. Mild LVH. Normal RV. Mild MAC with mild MR. No AI or . Trace TR. PAP 29 mmHg
Echo 01/19/2021: EF 55-60%, stage I diastolic dysfunction, trace MR, trace TR, PAP 21 mmHg
Echo 10/29/2024: EF 40-45%, Stage I diastolic dysfunction, mild inferolateral and inferior hypokinesis
Cardiac cath 11/01/2024: Left main 60% distal. LAD 40% ostial. Circumflex: Hazy 80% ostial, stents in OM1 with moderate diffuse ISR, smaller daughter branch of OM1 with 70% stenosis. RCA 60 to 70% ostial stenosis
Plan:
74-year-old woman with past medical history of CAD with prior PCI presenting with dyspnea and admitted for acute heart failure. Echo here showed newly reduced left ventricular ejection fraction estimated at 45% with segmental wall motion
abnormalities. Subsequent left heart catheterization identified multivessel CAD and she was evaluated by CT surgery. Ultimately plan is for Impella assisted PCI, however given JESI on CKD plan is to wait for renal function to return to baseline
prior to proceeding.
Acute on chronic renal sufficiency likely contrast nephropathy with underlying renal insufficiency following CTA of the neck 11/04/2024
-Lower blood pressures overnight although asymptomatic
-Creatinine continues to slowly increase, today 2.6 with baseline creatinine around 2
-Will hold Aldactone. Hold hydralazine
-Monitor blood pressure trends keeping maps greater than 65
-She has been euvolemic with no diuretics since 10/31/2024
-Discussed with nephrology. 500 cc normal saline bolus.
-Will monitor renal function closely
Multivessel CAD with mild cardiomyopathy plan for Impella assisted PCI once renal function stabilizes
-No chest pain or pressure and otherwise asymptomatic
-Continue aspirin/Plavix and high intensity statin/Zetia
-Continue metoprolol succinate 25 mg for now monitoring blood pressure trends
-Tentative plan for Impella assisted PCI Tuesday pending stabilization of renal function
Appreciate nephrology input
HPI: Steph is a 74 year old female with PMH of CAD, PAD, HFpEF, HTN, HLD, DM2, CKD, iron deficiency anemia, and glaucoma. Presented to [facility] ER with sudden onset shortness of breath. She was seen in the cardiology office on 10/22/2024 for evaluation
of intermittent chest discomfort which came on at rest following dinner. She had no exertional symptoms. She was started on pantoprazole at the time and reported resolution of her chest pain with this. Last night, after dinner she reported sudden
onset shortness of breath while sitting watching TV. EMS was called and she was started on BiPAP. On arrival to ER, she was noted to be significantly hypertensive and presented on IV nitroglycerin. Chest x-ray consistent with severe pulmonary
edema. She was started on IV Lasix and symptomatically has been improving. CT of chest negative for PE. Cardiology consulted for evaluation given elevated troponin and acute heart failure exacerbation. She reports she has no complaints. Denies
any chest pain and breathing is stable on high flow O2.
Progress Note - Press Washer
Subjective
Date of Service: November 10, 2024
Patient seen and examined. Overnight low blood pressure trends however patient is asymptomatic. No shortness of breath. No chest pain. Voiding well. No dizziness.
Objective
Labs:
11/09/24 03:48
11/10/24 04:36
Labs
Hgb 9.4 g/dL (12.0-16.0) L 11/09/24 03:48
Hct 30.0 % (37.0-47.0) L 11/09/24 03:48
Plt Count 219 10^3/uL (130-400) D 11/09/24 03:48
PT 14.0 Sec (11.4-14.6) 11/02/24 07:11
INR 1.03 11/02/24 07:11
APTT Cancelled 11/07/24 06:00
Sodium 140 mmol/L (135-145) 11/10/24 04:36
Potassium 4.8 mmol/L (3.5-5.1) 11/10/24 04:36
BUN 45 mg/dl (7-17) H 11/10/24 04:36
Creatinine 2.6 mg/dL (0.6-1.0) H 11/10/24 04:36
Glucose 82 mg/dl (70-99) 11/10/24 04:36
Vital Signs and I&O:
Vital Signs
Temp Pulse Resp BP Pulse Ox
98.7 F 71 16 101/51 98
11/10/24 08:30 11/10/24 08:35 11/10/24 08:30 11/10/24 08:35 11/10/24 08:30
Vital Signs
Temp Pulse Resp BP Pulse Ox
98.7 F 71 16 101/51 98
11/10/24 08:30 11/10/24 08:35 11/10/24 08:30 11/10/24 08:35 11/10/24 08:30
Intake & Output
11/08/24 11/09/24 11/10/24 11/11/24
06:59 06:59 06:59 06:59
Intake Total 720 / 720 370 / 370 480 / 480
Balance 720 / 720 370 / 370 480 / 480
Physical Exam
Physical Exam
GEN: AAOx3, NAD
HEENT: mmm
LUNGS: Bronchovesicular breath sounds, clear bilaterally
CV: Regular, positive S1-S2. No murmur
ABD: Soft, nontender. Positive bowel sounds
EXT: No edema B/L LE
[2024-11-10 12:09] LABS: Glucose - Point of Care 124 mg/dl (70-99)
--- NOTE | 2024-11-10 12:31 | W.PN.HOSP.TC ---
Today's Communication/Plan
-
Cardiac cath once kidney function improves
Assessment / Plan
Assessment / Plan
Impression:
Patient 74 F with Hx HTN, HLD, DM, CKD p/w NSTEMI and CHF. Cath showed multi-vessel CAD therefore plan for CABG. CT surgery following.
Noted to have carotid artery stenosis, vascular surgery consulted
Seen by vascular surgery and cleared for CABG.
High risk CABG versus high risk PCI.
Ongoing discussion with cardiology and cardiothoracic surgeon.
Plan for high risk PCI.
Creatinine was elevated, cardiac cath postponed
Assessment/plan:
Left main and multivessel CAD:
Status postcardiac cath
Plan for coronary bypass and workup in progress
Continue aspirin and heparin drip
Continue beta-blockers and statin
Cardiology and CT surgery on board
Continue cardiac monitoring.
Seen by vascular surgery for carotid artery stenosis, cleared for surgery
High risk CABG versus high risk PCI.
Ongoing discussion with cardiology and cardiothoracic surgery.
Initial plan for cath, Postponed cardiac catheter for elevated creatinine.
Gentle IVF.
Bilateral carotid stenoses, right side likely greater than 70%, left side 50 to 69%.
Seen by vascular surgeon Dr. Stahl.
Recommending coronary revascularization without prior carotid revascularization.
Acute systolic CHF with flash pulmonary edema presentation:
Initially received IV diuresis. IV Lasix on hold currently
Echocardiogram showed EF 40 to 45%
GDMT-on beta-blockers, hydralazine and nitrates, and spironolactone.
JESI on Chronic kidney disease stage IV:
Nephrology consult appreciated
Avoid nephrotoxic
cont sodium bicarb
Monitor renal function
Acute hypoxic respiratory failure, POA:
Improved
Back on room air today
Continue to monitor respiratory status closely
Hypertension:
Continue current meds
Diabetes mellitus type 2:
Insulin sliding scale
Monitor blood sugars closely
CODE STATUS: Full code
DVT prophylaxis: SCds
Diet: DM diet
Total time spent on today's encounter was 65 minutes which included time spent in counseling the patient/family regarding diagnosis and treatment plan as listed above, goals of care, and symptom management. Case was discussed with nursing staff,
specialists, and care coordinators/case management. All labs and imaging personally reviewed by me. Remainder the time spent in detailed review of previous records, lab data, imaging, and other medical provider documentation.
Anticipated Discharge: > 48 hours
Subjective/Interval History
-
Date of Service: November 10, 2024
Patient seen and examined at bedside, denies any chest pain or shortness of breath, no abdominal pain, no nausea, no vomiting, no diarrhea or constipation.
Objective Data
-
Labs:
Laboratory Results
11/10/24
04:36
Sodium 140
Potassium 4.8
Chloride 109 H
Carbon Dioxide 26
BUN 45 H
Creatinine 2.6 H
Glucose 82
Calcium 8.6
Vital Signs:
Vital Signs
Temp Pulse Resp BP Pulse Ox
98.7 F 71 16 101/51 98
11/10/24 08:30 11/10/24 08:35 11/10/24 08:30 11/10/24 08:35 11/10/24 08:30
I&O
11/09/24 11/10/24 11/11/24
06:59 06:59 06:59
Intake Total 370 / 370 480 / 480 240 / 240
Balance 370 / 370 480 / 480 240 / 240
Physical Exam
-
General: Well Developed, Well Nourished, No Apparent Distress and Comfortable
HEENT: Normocephalic, Atraumatic, Moist Mucous Membranes, No Ptosis, PERRLA and Nose Appears Normal
Respiratory: Clear to Auscultation and Non Labored Respirations
Cardiac: Regular Rhythm and S1/S2
Breast: Deferred by me
GI: Soft, Nontender, Nondistended and Normal Bowel Sounds
Genito-urinary: No Costovertebral Tender
Musculoskeletal: No Clubbing, No Cyanosis and No Edema
Skin: Warm
Neuro: Awake, Alert, Oriented, AO x 3 and No Motor Deficits
Psych: Calm
Data Reviewed
-
Diagnostic Radiology: Image personally visualized and interpreted and Report Reviewed by me
CT Scan: Image personally visualized and interpreted and Report Reviewed by me
Ultrasound: Image personally visualized and interpreted and Report Reviewed by me
MRI: Image personally visualized and interpreted and Report Reviewed by me
Medical Tests (Nuc Med, Echo etc): Image personally visualized and interpreted and Report Reviewed by me
Labs: Labs Reviewed by me
Old Records: Reviewed
[2024-11-10] MEDS: SANTYL OINTMENT 1 APPLIC TOPICAL (12:40)
--- NOTE | 2024-11-10 16:19 | PTCARENOTE ---
Patient tolerated 500ml NS bolus given earlier, has voided 200 ml since fluids were given, BP 100/44. Using O2 3L NC prn for mild dyspnea but otherwise is asymptomatic.
[2024-11-10] MEDS: LIPITOR 80 MG PO (17:13)
[2024-11-10 17:17] LABS: Glucose - Point of Care 124 mg/dl (70-99)
--- NOTE | 2024-11-10 17:24 | PTCARENOTE ---
Patient only voided x 1 today for 200ml. Patient states 'I never urinate much'. Bladder scanned for 341ml, instructed that after she is finished eating her dinner to try and void and we will check PVR.
[2024-11-10 21:11] LABS: Glucose - Point of Care 114 mg/dl (70-99)
[2024-11-10] MEDS: LYRICA 300 MG PO (22:07)
--- NOTE | 2024-11-11 00:04 | PTCARENOTE ---
Pt NSR on monitor, denies pain or any discomfort. OOB with x 1 assist and RW. Post residual bladder scan 32ml.
[2024-11-11 03:00] VITALS: BP 123/61
[2024-11-11 03:43] LABS: Hematocrit 28.2 % (37.0-47.0); Hemoglobin 8.6 g/dL (12.0-16.0); Mean Corp Hgb Conc. 30.5 g/dL (33.0-37.0); Mean Corpuscular Hgb 27.8 pg (27.0-31.0); Mean Corpuscular Volume 91.3 fL (81.0-99.0); Mean Platelet Volume 12.9 fL (7.4-10.4); Platelet Count 172 10^3/uL (130-400); Red Blood Cell Count 3.09 10^6/uL (4.20-5.40); Red Cell Dist. Width 16.4 % (11.5-14.5)
[2024-11-11 04:07] LABS: Blood Urea Nitrogen 49 mg/dl (7-17); Calcium 8.5 mg/dl (8.4-10.2); Carbon Dioxide 24 mmol/L (22-30); Chloride 110 mmol/L (98-107); Estimated Creatinine Clearance 16 ml/min; Glucose 74 mg/dl (70-99); Potassium 4.7 mmol/L (3.5-5.1); Sodium 140 mmol/L (135-145); eGFR 19.69
[2024-11-11 06:00] VITALS: BMI 26.3
[2024-11-11 06:50] VITALS: BP 116/48
[2024-11-11 07:36] LABS: Glucose - Point of Care 96 mg/dl (70-99)
[2024-11-11] MEDS: TOPROL XL 25 MG PO (08:34)
[2024-11-11] MEDS: PLAVIX 75 MG PO (08:34)
[2024-11-11] MEDS: SODIUM BICARBONATE 650 MG PO ×2 (08:35→20:27)
[2024-11-11] MEDS: VITAMIN C 250 MG PO (08:35)
[2024-11-11] MEDS: IMDUR (EXTENDED RELEASE) 30 MG PO (08:35)
[2024-11-11] MEDS: NOVOLOG FLEXPEN-LOW RESISTANCE SC (08:35)
[2024-11-11] MEDS: PROTONIX 40 MG PO (08:35)
[2024-11-11] MEDS: FEOSOL 325 MG PO (08:35)
[2024-11-11] MEDS: LOW STRENGTH ASPIRIN 81 MG PO (08:35)
[2024-11-11] MEDS: NOVOLOG FLEXPEN 5 UNITS SC ×3 (08:36→16:52)
[2024-11-11] MEDS: ZETIA 10 MG PO (08:37)
[2024-11-11] MEDS: LANTUS 0.12 UNITS SC (08:37)
--- NOTE | 2024-11-11 09:06 | W.PN.CARDCBS ---
Today's Communication / Plan
-
-Plan for Impella assisted PCI pending stabilization of renal function
-BMP in am
-NPO after midnight
Impression / Plan
-
PCP: Dr. Carlton
Pharmacy Care Coordinator: Dr. VICKY Danielson
Impression:
Presented 10/28/2024 w/ sudden onset SOB
Acute on chronic HFpEF
Elevated troponin, possible ACS
Hyperglycemia
CAD
s/p 2.5 mm Xience OM1 PCI 01/20/21
s/p Xience prox and overlapping previously placed distal OM-1 05/17/2019
s/p 2.5 mm Xience OM1 PCI 02/12/2019
PAD
s/p R common femoral endarterectomy w/ patch angioplasty and covered R iliac stent 01/2024
s/p right SFA angioplasty and stent 04/2020
h/o COVID 19 w/ residual parenchymal scarring
HTN
HLD
DM2
CKD 4
h/o Henoch-Schonlein purpura
Glaucoma
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
h/o gastric bypass 2010
h/o angioedema on ZAY inhibitors
Aortic atherosclerosis
h/o orthostasis on Terazosin
h/o TIA 2016
Iron deficiency anemia
Echo 08/06/2020: EF 64%. Mild LVH. Normal RV. Mild MAC with mild MR. No AI or . Trace TR. PAP 29 mmHg
Echo 01/19/2021: EF 55-60%, stage I diastolic dysfunction, trace MR, trace TR, PAP 21 mmHg
Echo 10/29/2024: EF 40-45%, Stage I diastolic dysfunction, mild inferolateral and inferior hypokinesis
Cardiac cath 11/01/2024: Left main 60% distal. LAD 40% ostial. Circumflex: Hazy 80% ostial, stents in OM1 with moderate diffuse ISR, smaller daughter branch of OM1 with 70% stenosis. RCA 60 to 70% ostial stenosis
Plan:
74-year-old woman with past medical history of CAD with prior PCI presenting with dyspnea and admitted for acute heart failure. Echo here showed newly reduced left ventricular ejection fraction estimated at 45% with segmental wall motion
abnormalities. Subsequent left heart catheterization identified multivessel CAD and she was evaluated by CT surgery. Ultimately plan is for Impella assisted PCI, however given JESI on CKD plan is to wait for renal function to return to baseline
prior to proceeding.
Acute on chronic renal sufficiency likely contrast nephropathy with underlying renal insufficiency following CTA of the neck 11/04/2024
-Lower blood pressures overnight although asymptomatic
-Creatinine seems to have plateaued, today 2.5 with baseline creatinine around 2
-Medications held 11/10: Aldactone, hydralazine
- s/p 500 cc normal saline bolus 11/10
-Monitor blood pressure trends keeping maps greater than 65
-She has been euvolemic with no diuretics since 10/31/2024
-Discussed with nephrology.
-Will monitor renal function closely
Multivessel CAD with mild cardiomyopathy plan for Impella assisted PCI once renal function stabilizes
-No chest pain or pressure and otherwise asymptomatic
-Continue aspirin/Plavix and high intensity statin/Zetia
-Continue metoprolol succinate 25 mg for now monitoring blood pressure trends
-Tentative plan for Impella assisted PCI Tuesday pending stabilization of renal function
Appreciate nephrology input
HPI: Steph is a 74 year old female with PMH of CAD, PAD, HFpEF, HTN, HLD, DM2, CKD, iron deficiency anemia, and glaucoma. Presented to [facility] ER with sudden onset shortness of breath. She was seen in the cardiology office on 10/22/2024 for evaluation
of intermittent chest discomfort which came on at rest following dinner. She had no exertional symptoms. She was started on pantoprazole at the time and reported resolution of her chest pain with this. Last night, after dinner she reported sudden
onset shortness of breath while sitting watching TV. EMS was called and she was started on BiPAP. On arrival to ER, she was noted to be significantly hypertensive and presented on IV nitroglycerin. Chest x-ray consistent with severe pulmonary
edema. She was started on IV Lasix and symptomatically has been improving. CT of chest negative for PE. Cardiology consulted for evaluation given elevated troponin and acute heart failure exacerbation. She reports she has no complaints. Denies
any chest pain and breathing is stable on high flow O2.
Progress Note - Pharmacy Care Coordinator
Subjective
Date of Service: November 11, 2024
Seen and examined. No new events
Objective
Labs:
11/11/24 03:08
11/11/24 03:08
Labs
Hgb 8.6 g/dL (12.0-16.0) L 11/11/24 03:08
Hct 28.2 % (37.0-47.0) L 11/11/24 03:08
Plt Count 172 10^3/uL (130-400) D 11/11/24 03:08
PT 14.0 Sec (11.4-14.6) 11/02/24 07:11
INR 1.03 11/02/24 07:11
APTT Cancelled 11/07/24 06:00
Sodium 140 mmol/L (135-145) 11/11/24 03:08
Potassium 4.7 mmol/L (3.5-5.1) 11/11/24 03:08
BUN 49 mg/dl (7-17) H 11/11/24 03:08
Creatinine 2.5 mg/dL (0.6-1.0) H 11/11/24 03:08
Glucose 74 mg/dl (70-99) 11/11/24 03:08
Vital Signs and I&O:
Vital Signs
Temp Pulse Resp BP Pulse Ox
98 F 88 20 116/48 98
11/11/24 06:48 11/11/24 08:34 11/11/24 06:48 11/11/24 08:34 11/11/24 08:49
Vital Signs
Temp Pulse Resp BP Pulse Ox
98 F 88 20 116/48 98
11/11/24 06:48 11/11/24 08:34 11/11/24 06:48 11/11/24 08:34 11/11/24 08:49
Intake & Output
11/09/24 11/10/24 11/11/24 11/12/24
06:59 06:59 06:59 06:59
Intake Total 370 / 370 480 / 480 1220 / 1220
Output Total 525 / 525
Balance 370 / 370 480 / 480 695 / 695
Physical Exam
Physical Exam
GEN: AAOx3, NAD
HEENT: mmm
LUNGS: Bronchovesicular breath sounds, clear bilaterally
CV: Regular, positive S1-S2. No murmur
ABD: Soft, nontender. Positive bowel sounds
EXT: No edema B/L LE
--- NOTE | 2024-11-11 09:29 | W.PN.NEPH.PH ---
Today's Communication / Plan
-
40 mg IV Lasix provided
Follow BMP
Assessment/Plan
-
74y F with PMH significant for hypertension, DM-II and chronic ILD s/p COVID who presents to ED complaining of SOB. And pulmonary edema on x-ray treated with IV diuretics with reduced ejection fraction from previous 40 to 45%
Patient has chronic kidney disease and follows with Dr. Baptiste
Renal consult for BERYL prevention
Baseline creatinine between 2 and 2.3
IMP:
Shortness of breath CHF
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
CKD stage 4 (baseline Cr� 2.5)-follows Dr Cast
DM2
CAD hx of [place], hx of stents
HTN
DM
GERD
h/o ACEI angioedema
h/o Henoch-Schonlein purpura
Gastric bypass 2010
ALISHA, mild, with nocturnal hypoxemia
PAD, SFA stent Apr 2020
JESI
Plan:
Creatinine up post CTA neck now down to 2.5 from 2.6
JESI in setting of contrast nephropathy following CTA of head and neck
We will provide 40 mg IV Lasix this morning as patient has become suddenly short of breath with wheezes and crackles bilaterally
With hold hydralazine and Aldactone
Follow BMP
Patient at high clinical risk with worsening respiratory status in setting of congestive heart failure decompensation requiring IV Lasix
May plan for high risk PCI once creatinine shows improvement
-
-
Date of Service: November 11, 2024
CC / HPI / ROS
-
Chief Complaint:
CKD4
History of Present Illness:
CKD/Cr with modest improvement to 2.5
Hemodynamically labile
Review of Systems:
Patient without chest pain but now with shortness of breath
no fevers
non oliguric
Weight up
Labs
-
Labs:
WBC 7.0 10^3/uL (4.8-10.8) 11/11/24 03:08
RBC 3.09 10^6/uL (4.20-5.40) L 11/11/24 03:08
Hgb 8.6 g/dL (12.0-16.0) L 11/11/24 03:08
Hct 28.2 % (37.0-47.0) L 11/11/24 03:08
Plt Count 172 10^3/uL (130-400) D 11/11/24 03:08
Sodium 140 mmol/L (135-145) 11/11/24 03:08
Potassium 4.7 mmol/L (3.5-5.1) 11/11/24 03:08
Chloride 110 mmol/L (98-107) H 11/11/24 03:08
Carbon Dioxide 24 mmol/L (22-30) 11/11/24 03:08
BUN 49 mg/dl (7-17) H 11/11/24 03:08
Creatinine 2.5 mg/dL (0.6-1.0) H 11/11/24 03:08
eGFR 19.69 11/11/24 03:08
Glucose 74 mg/dl (70-99) 11/11/24 03:08
Calcium 8.5 mg/dl (8.4-10.2) 11/11/24 03:08
Gdh-P-Telcatyuqvr Pept 5210 pg/ml 11/04/24 05:54
Albumin 3.3 g/dl (3.5-5.0) L 11/02/24 07:11
Physical Exam
-
Vital Signs:
Vital Signs
Temp Pulse Resp BP Pulse Ox
98 F 88 20 116/48 98
11/11/24 06:48 11/11/24 08:34 11/11/24 06:48 11/11/24 08:34 11/11/24 08:49
Cardiovascular:: Regular rate and rhythm
Respiratory:: Bilateral: Rales and Bilateral: Wheeze
Lung Excursion:: Normal
Abdomen:: Nontender and Soft
Bowel Sounds:: Normal
Extremity Edema:: None: Bilateral:
Cortez Catheter: No
[2024-11-11] MEDS: DUONEB 3 ML INH (09:39)
[2024-11-11] MEDS: LASIX 40 MG IV (09:41)
[2024-11-11 11:14] VITALS: BP 123/48
[2024-11-11 11:52] LABS: Glucose - Point of Care 237 mg/dl (70-99)
[2024-11-11] MEDS: NOVOLOG FLEXPEN-LOW RESISTANCE 2 UNITS SC (11:59)
[2024-11-11] MEDS: SANTYL OINTMENT 1 APPLIC TOPICAL (13:36)
--- NOTE | 2024-11-11 14:56 | W.PN.HOSP.TC ---
Today's Communication/Plan
-
Monitor kidney function.
Cardiac cath pending improvement of renal function
Monitor respiratory status
Assessment / Plan
Assessment / Plan
Impression:
Patient 74 F with Hx HTN, HLD, DM, CKD p/w NSTEMI and CHF. Cath showed multi-vessel CAD therefore plan for CABG. CT surgery following.
Noted to have carotid artery stenosis, vascular surgery consulted
Seen by vascular surgery and cleared for CABG.
High risk CABG versus high risk PCI.
Ongoing discussion with cardiology and cardiothoracic surgeon.
Plan for high risk PCI.
Creatinine was elevated, cardiac cath postponed
Received IV fluid but developed shortness of breath and wheezing, was given Lasix.
Plan for Impella assisted PCI pending stabilization of renal function, NPO after midnight.
Assessment/plan:
Left main and multivessel CAD:
Status postcardiac cath
Plan for coronary bypass and workup in progress
Continue aspirin and heparin drip
Continue beta-blockers and statin
Cardiology and CT surgery on board
Continue cardiac monitoring.
Seen by vascular surgery for carotid artery stenosis, cleared for surgery
High risk CABG versus high risk PCI.
Ongoing discussion with cardiology and cardiothoracic surgery.
Initial plan for cath, Postponed cardiac catheter for elevated creatinine.
Gentle IVF.
Bilateral carotid stenoses, right side likely greater than 70%, left side 50 to 69%.
Seen by vascular surgeon Dr. Stahl.
Recommending coronary revascularization without prior carotid revascularization.
Acute systolic CHF with flash pulmonary edema presentation:
Initially received IV diuresis. IV Lasix on hold currently
Echocardiogram showed EF 40 to 45%
GDMT-on beta-blockers, hydralazine and nitrates, and spironolactone.
11/11
Patient received fluid yesterday and today started develop acute onset of shortness of breath and wheezing.
Received IV lasix.
JESI on Chronic kidney disease stage IV:
Nephrology consult appreciated
Avoid nephrotoxic
cont sodium bicarb
Monitor renal function
Acute hypoxic respiratory failure, POA:
Improved
Back on room air today
Continue to monitor respiratory status closely
Hypertension:
Continue current meds
Diabetes mellitus type 2:
Insulin sliding scale
Monitor blood sugars closely
CODE STATUS: Full code
DVT prophylaxis: SCds
Diet: DM diet- NPO after midnight for possible cath.
Total time spent on today's encounter was 65 minutes which included time spent in counseling the patient/family regarding diagnosis and treatment plan as listed above, goals of care, and symptom management. Case was discussed with nursing staff,
specialists, and care coordinators/case management. All labs and imaging personally reviewed by me. Remainder the time spent in detailed review of previous records, lab data, imaging, and other medical provider documentation.
Anticipated Discharge: > 48 hours
Subjective/Interval History
-
Date of Service: November 11, 2024
Patient seen and examined at bedside, in the morning developed shortness of breath and wheezing, received IV Lasix , denies any chest pain .
Objective Data
-
Labs:
Laboratory Results
11/11/24
03:08
WBC 7.0
Hgb 8.6 L
Hct 28.2 L
Plt Count 172 D
Sodium 140
Potassium 4.7
Chloride 110 H
Carbon Dioxide 24
BUN 49 H
Creatinine 2.5 H
Glucose 74
Calcium 8.5
Vital Signs:
Vital Signs
Temp Pulse Resp BP Pulse Ox
97.6 F 63 20 123/48 99
11/11/24 11:14 11/11/24 11:14 11/11/24 11:14 11/11/24 11:14 11/11/24 11:14
I&O
11/10/24 11/11/24 11/12/24
06:59 06:59 06:59
Intake Total 480 / 480 1220 / 1220
Output Total 525 / 525 500 / 500
Balance 480 / 480 695 / 695 -500 / -500
Physical Exam
-
General: Well Developed, Well Nourished, No Apparent Distress and Comfortable
HEENT: Normocephalic, Atraumatic, Moist Mucous Membranes, No Ptosis, PERRLA and Nose Appears Normal
Respiratory: Wheezes, Rales, Rhonchi, Crackles and Accessory Resp Muscle Use
Cardiac: Regular Rhythm and S1/S2
Breast: Deferred by me
GI: Soft, Nontender, Nondistended and Normal Bowel Sounds
Genito-urinary: No Costovertebral Tender
Musculoskeletal: No Clubbing, No Cyanosis and No Edema
Skin: Warm
Neuro: Awake, Alert, Oriented, AO x 3 and No Motor Deficits
Psych: Calm
Data Reviewed
-
Diagnostic Radiology: Image personally visualized and interpreted and Report Reviewed by me
CT Scan: Image personally visualized and interpreted and Report Reviewed by me
Ultrasound: Image personally visualized and interpreted and Report Reviewed by me
MRI: Image personally visualized and interpreted and Report Reviewed by me
Medical Tests (Nuc Med, Echo etc): Image personally visualized and interpreted and Report Reviewed by me
Labs: Labs Reviewed by me
Old Records: Reviewed
[2024-11-11 16:25] VITALS: BP 113/52
[2024-11-11 16:48] LABS: Glucose - Point of Care 296 mg/dl (70-99)
[2024-11-11 16:50] LABS: Glucose - Point of Care 325 mg/dl (70-99)
[2024-11-11] MEDS: NOVOLOG FLEXPEN-LOW RESISTANCE 3 UNITS SC (16:52)
[2024-11-11] MEDS: LIPITOR 80 MG PO (16:53)
[2024-11-11 18:16] VITALS: BP 120/41
--- NOTE | 2024-11-11 18:19 | PTCARENOTE ---
At 09:21 pt reported sudden SOB with wheezing and crackles bilaterally, 89% on room air. Pt given oxygen, at bedside. Duoneb treatment given with some initial improvement as well as lasix. Pt diuresed @1400mls, she reported feeling much
better during the afternoon but only went from the bed to the commode and chair due to WOODRUFF and some anxiety. Telemetry shows sinus rhythm at a rate of 44-60's. Pt NPO for possible PCI on 11/12 pending Cr. level.
[2024-11-11 21:03] LABS: Glucose - Point of Care 196 mg/dl (70-99)
[2024-11-11 22:19] VITALS: BP 107/41
[2024-11-11] MEDS: LYRICA 300 MG PO (22:36)
[2024-11-12] VITALS (7 sets, daily range): BP systolic 94–123; BP diastolic 38–61; BMI 25.9
[2024-11-12 04:31] LABS: Blood Urea Nitrogen 51 mg/dl (7-17); Calcium 8.4 mg/dl (8.4-10.2); Carbon Dioxide 25 mmol/L (22-30); Chloride 109 mmol/L (98-107); Estimated Creatinine Clearance 15 ml/min; Glucose 97 mg/dl (70-99); Potassium 4.4 mmol/L (3.5-5.1); Sodium 140 mmol/L (135-145); eGFR 18.78
--- NOTE | 2024-11-12 08:09 | PTCARENOTE ---
Received patient this morning resting in bed. Informed the patient that she may order breakfast, cardiac cath cancelled for today. Patient is aware of her creatinine result.
[2024-11-12 08:11] LABS: Glucose - Point of Care 104 mg/dl (70-99)
[2024-11-12] MEDS: NOVOLOG FLEXPEN-LOW RESISTANCE SC ×2 (08:14→16:40)
--- NOTE | 2024-11-12 08:22 | PN.DE.MGMTRT ---
Insulin Management
- -
11/12/2024: Diabetes Management follow up
74 year old female with PMH: HTN, DM-II and chronic ILD s/p COVID who presents to ED complaining of SOB. In the ED, patient was noted to be markedly hypertensive with hypoxemia and CXR consistent with severe pulmonary edema.
Was taking Lantus 38 units @ HS and NovoLog 2-8 units AC. A1C 11.8%, Cr 2.0, eGFR 25.73
States she consistently monitors her blood sugars at home and that her FBG is usually 105 to 120 but her premeal glucose numbers are always elevated despite taking insulin before each meal. She uses SS NovoLog. Diabetes is managed by her PCP.
Patient awake, alert, oriented, sitting up in bed, offers no complaints, able to discuss diabetes care plan.
11/09 Lantus schedule was changed to AM given recurrent episodes of hypoglycemia at amador.
Pt has been NPO since NH for [facility] that was planned for today but has been canceled, due to up trending Cr 2.6 today
Noted for Hyperglycemia, premeal 237 to 325, requiring 2-3 units of corrective insulin with meals. Pt states that she had regular syrup with her breakfast because sweeteners and sugar free foods cause her diarrhea.
Will increase Lantus dose from 12 units to 14 units in AM, increase NovoLog to 7 units with breakfast and lunch. FBG 97 V, 104 POC, will cont NovoLog 5 units @ dinner time. Will check 3AM blood sugar tonight.
Discussed with pt and she was agreeable. Will cont to monitor and adjust AC insulin dose if necessary.
Diabetes History
- -
Type of Diabetes: 2 requiring insulin
Pre-Admission Diabetes Regimen
11/12/24
03:45
Creatinine 2.6 H
Lab Results
Hemoglobin A1c 11.8 % (4.0-5.6) H 10/29/24 03:26
Insulin Pump Settings
IP Diabetes Regimen
11/11/24 11/11/24 11/11/24
11:51 16:47 16:49
Glucose
POC Glucose 237 H 296 H 325 H
11/11/24 11/12/24 11/12/24
21:02 03:45 08:09
Glucose 97
POC Glucose 196 H 104 H
Meal type: Lunch
Meal type: Breakfast
Amount consumed: 90%
Amount consumed: 100%
Patient Education
[2024-11-12] MEDS: FEOSOL 325 MG PO (08:38)
[2024-11-12] MEDS: IMDUR (EXTENDED RELEASE) 30 MG PO (08:38)
[2024-11-12] MEDS: PROTONIX 40 MG PO (08:39)
[2024-11-12] MEDS: LOW STRENGTH ASPIRIN 81 MG PO (08:39)
[2024-11-12] MEDS: PLAVIX 75 MG PO (08:39)
[2024-11-12] MEDS: TOPROL XL PO ×2 (08:39→08:50)
[2024-11-12] MEDS: SODIUM BICARBONATE 650 MG PO ×2 (08:39→19:33)
[2024-11-12] MEDS: ZETIA 10 MG PO (08:40)
[2024-11-12] MEDS: VITAMIN C 250 MG PO (08:40)
[2024-11-12] MEDS: FLUSH (NSS) 1 FLUSH IV (08:40)
--- NOTE | 2024-11-12 09:16 | W.PN.CARDCBS ---
Today's Communication / Plan
-
No plan for left heart catheterization today and will resume diet
Close monitoring of blood pressure trends and renal function
Impression / Plan
-
PCP: Dr. Carlton
Electronic Resources Librarian: Dr. VICKY Danielson
Impression:
Presented 10/28/2024 w/ sudden onset SOB
Acute on chronic HFpEF
Elevated troponin, possible ACS
Hyperglycemia
CAD
s/p 2.5 mm Xience OM1 PCI 01/20/21
s/p Xience prox and overlapping previously placed distal OM-1 05/17/2019
s/p 2.5 mm Xience OM1 PCI 02/12/2019
PAD
s/p R common femoral endarterectomy w/ patch angioplasty and covered R iliac stent 01/2024
s/p right SFA angioplasty and stent 04/2020
h/o COVID 19 w/ residual parenchymal scarring
HTN
HLD
DM2
CKD 4
h/o Henoch-Schonlein purpura
Glaucoma
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
h/o gastric bypass 2010
h/o angioedema on ZAY inhibitors
Aortic atherosclerosis
h/o orthostasis on Terazosin
h/o TIA 2016
Iron deficiency anemia
Echo 08/06/2020: EF 64%. Mild LVH. Normal RV. Mild MAC with mild MR. No AI or . Trace TR. PAP 29 mmHg
Echo 01/19/2021: EF 55-60%, stage I diastolic dysfunction, trace MR, trace TR, PAP 21 mmHg
Echo 10/29/2024: EF 40-45%, Stage I diastolic dysfunction, mild inferolateral and inferior hypokinesis
Cardiac cath 11/01/2024: Left main 60% distal. LAD 40% ostial. Circumflex: Hazy 80% ostial, stents in OM1 with moderate diffuse ISR, smaller daughter branch of OM1 with 70% stenosis. RCA 60 to 70% ostial stenosis
Plan:
74-year-old woman with past medical history of CAD with prior PCI presenting with dyspnea and admitted for acute heart failure. Echo here showed newly reduced left ventricular ejection fraction estimated at 45% with segmental wall motion
abnormalities. Subsequent left heart catheterization identified multivessel CAD and she was evaluated by CT surgery. Ultimately plan is for Impella assisted PCI, however given JESI on CKD plan is to wait for renal function to return to baseline
prior to proceeding.
Acute on chronic renal sufficiency likely contrast nephropathy with underlying renal insufficiency following CTA of the neck 11/04/2024
-Unfortunately creatinine today unfortunately creatinine today still 2.6
-Blood pressures remain borderline low despite holding hydralazine and Aldactone
-Medications held 11/10: Aldactone, hydralazine
-Monitor blood pressure trends keeping maps greater than 65
-Nephrology has been closely involved
-Will monitor renal function closely
Acute episode of shortness of breath 11/11/24, resolved
-Episode of acute shortness of breath yesterday which improved with IV Lasix and nebulizer with no recurrent episodes
- s/p 500 cc normal saline bolus 11/10--> episode of acute shortness of breath 11/11/2024 requiring 40 mg IV Lasix
- No further fluid or Lasix at this time
Multivessel CAD with mild cardiomyopathy plan for Impella assisted PCI once renal function stabilizes
-No chest pain or pressure and otherwise asymptomatic
-Continue aspirin/Plavix and high intensity statin/Zetia
-Continue metoprolol succinate 25 mg for now monitoring blood pressure trends
-Tentative plan for possible Impella assisted PCI pending stabilization of renal function-patient aware that procedure is not happening today and will further review options with interventional cardiology and nephrology.
Appreciate nephrology input
HPI: Steph is a 74 year old female with PMH of CAD, PAD, HFpEF, HTN, HLD, DM2, CKD, iron deficiency anemia, and glaucoma. Presented to [facility] ER with sudden onset shortness of breath. She was seen in the cardiology office on 10/22/2024 for evaluation
of intermittent chest discomfort which came on at rest following dinner. She had no exertional symptoms. She was started on pantoprazole at the time and reported resolution of her chest pain with this. Last night, after dinner she reported sudden
onset shortness of breath while sitting watching TV. EMS was called and she was started on BiPAP. On arrival to ER, she was noted to be significantly hypertensive and presented on IV nitroglycerin. Chest x-ray consistent with severe pulmonary
edema. She was started on IV Lasix and symptomatically has been improving. CT of chest negative for PE. Cardiology consulted for evaluation given elevated troponin and acute heart failure exacerbation. She reports she has no complaints. Denies
any chest pain and breathing is stable on high flow O2.
Progress Note - Electronic Resources Librarian
Subjective
Date of Service: November 12, 2024
Seen and examined. No events overnight.
Objective
Labs:
11/11/24 03:08
11/12/24 03:45
Labs
Hgb 8.6 g/dL (12.0-16.0) L 11/11/24 03:08
Hct 28.2 % (37.0-47.0) L 11/11/24 03:08
Plt Count 172 10^3/uL (130-400) D 11/11/24 03:08
PT 14.0 Sec (11.4-14.6) 11/02/24 07:11
INR 1.03 11/02/24 07:11
APTT Cancelled 11/07/24 06:00
Sodium 140 mmol/L (135-145) 11/12/24 03:45
Potassium 4.4 mmol/L (3.5-5.1) 11/12/24 03:45
BUN 51 mg/dl (7-17) H 11/12/24 03:45
Creatinine 2.6 mg/dL (0.6-1.0) H 11/12/24 03:45
Glucose 97 mg/dl (70-99) 11/12/24 03:45
Vital Signs and I&O:
Vital Signs
Temp Pulse Resp BP Pulse Ox
98 F 53 20 94/47 100
11/12/24 06:49 11/12/24 08:50 11/12/24 06:49 11/12/24 08:50 11/12/24 06:49
Vital Signs
Temp Pulse Resp BP Pulse Ox
98 F 53 20 94/47 100
11/12/24 06:49 11/12/24 08:50 11/12/24 06:49 11/12/24 08:50 11/12/24 06:49
Intake & Output
11/10/24 11/11/24 11/12/24 11/13/24
06:59 06:59 06:59 06:59
Intake Total 480 / 480 1220 / 1220 200 / 200
Output Total 525 / 525 1200 / 1200
Balance 480 / 480 695 / 695 -1000 / -1000
Physical Exam
Physical Exam
GEN: AAOx3, NAD
HEENT: mmm
LUNGS: Bronchovesicular breath sounds, clear bilaterally
CV: Regular, positive S1-S2. No murmur
ABD: Soft, nontender. Positive bowel sounds
EXT: No edema B/L LE
--- NOTE | 2024-11-12 09:21 | W.PN.HOSP.TC ---
Today's Communication/Plan
-
Monitor renal function closely.
Assessment / Plan
Assessment / Plan
Physical exam:
General: Acute on chronically ill
HEENT: Normocephalic, Atraumatic and Moist Mucous Membranes
Respiratory: Clear to Auscultation; Negative Wheezes, Rales or Rhonchi
Cardiac: Regular Rhythm and S1/S2
GI: Soft, Nontender and Nondistended
Musculoskeletal: No Clubbing, No Cyanosis and No Edema
Neuro: Awake, Alert and Oriented, no neurological deficits
Psych: Calm
A/P:
Impression:
Patient 74 F with Hx HTN, HLD, DM, CKD p/w NSTEMI and CHF. Cath showed multi-vessel CAD therefore plan for CABG. CT surgery following.
Noted to have carotid artery stenosis, vascular surgery consulted
Seen by vascular surgery and cleared for CABG.
High risk CABG versus high risk PCI.
Ongoing discussion with cardiology and cardiothoracic surgeon.
Plan for high risk PCI.
Creatinine was elevated, cardiac cath postponed
Received IV fluid but developed shortness of breath and wheezing, was given Lasix.
Plan for Impella assisted PCI pending stabilization of renal function.
Plan for high risk PCI once creatinine goes below 2.4 or once cleared by nephrology; today creatinine 2.6
Assessment/plan:
Left main and multivessel CAD:
Status postcardiac cath
Plan for coronary bypass and workup in progress
Continue aspirin and heparin drip
Continue beta-blockers and statin
Cardiology and CT surgery on board
Continue cardiac monitoring.
Seen by vascular surgery for carotid artery stenosis, cleared for surgery
High risk CABG versus high risk PCI.
Ongoing discussion with cardiology and cardiothoracic surgery.
Initial plan for cath, Postponed cardiac catheter for elevated creatinine.
Gentle IVF. Followed by diuresis. No plans for cath per cardiology yet.
Bilateral carotid stenoses, right side likely greater than 70%, left side 50 to 69%.
Seen by vascular surgeon Dr. Stahl.
Recommending coronary revascularization without prior carotid revascularization.
Acute systolic CHF with flash pulmonary edema presentation:
Initially received IV diuresis. IV Lasix on hold currently
Echocardiogram showed EF 40 to 45%
GDMT-on beta-blockers, hydralazine and nitrates, and spironolactone.
11/11
Patient received fluid yesterday and following day started develop acute onset of shortness of breath and wheezing.
Received IV lasix.
No Lasix today on 11/12 per nephrology
JESI on Chronic kidney disease stage IV:
Nephrology consult appreciated
Avoid nephrotoxic
cont sodium bicarb
Monitor renal function
Acute hypoxic respiratory failure, POA:
Improved
Back on room air today
Continue to monitor respiratory status closely
Hypertension:
Continue current meds
Diabetes mellitus type 2:
Insulin sliding scale
Monitor blood sugars closely
CODE STATUS: Full code
DVT prophylaxis: SCds
Diet: DM diet- NPO after midnight for possible cath.
Total time spent on today's encounter was 65 minutes which included time spent in counseling the patient/family regarding diagnosis and treatment plan as listed above, goals of care, and symptom management. Case was discussed with nursing staff,
specialists, and care coordinators/case management. All labs and imaging personally reviewed by me. Remainder the time spent in detailed review of previous records, lab data, imaging, and other medical provider documentation.
Anticipated Discharge: > 48 hours
Subjective/Interval History
-
Date of Service: November 12, 2024
No chest pain or shortness of breath today
Objective Data
-
Labs:
Laboratory Results
11/12/24
03:45
Sodium 140
Potassium 4.4
Chloride 109 H
Carbon Dioxide 25
BUN 51 H
Creatinine 2.6 H
Glucose 97
Calcium 8.4
Vital Signs:
Vital Signs
Temp Pulse Resp BP Pulse Ox
98 F 53 20 94/47 100
11/12/24 06:49 11/12/24 08:50 11/12/24 06:49 11/12/24 08:50 11/12/24 06:49
I&O
11/11/24 11/12/24 11/13/24
06:59 06:59 06:59
Intake Total 1220 / 1220 200 / 200
Output Total 525 / 525 1200 / 1200
Balance 695 / 695 -1000 / -1000
[2024-11-12] MEDS: NOVOLOG FLEXPEN SC (09:31)
[2024-11-12] MEDS: LANTUS SC (09:32)
[2024-11-12] MEDS: NOVOLOG FLEXPEN 7 UNITS SC ×2 (09:37→13:21)
[2024-11-12] MEDS: LANTUS 0.14 UNITS SC (09:38)
[2024-11-12] MEDS: SANTYL OINTMENT 1 APPLIC TOPICAL (11:00)
--- NOTE | 2024-11-12 11:57 | W.PN.NEPH.PH ---
Today's Communication / Plan
-
no lasix
follow labs
Assessment/Plan
-
74y F with PMH significant for hypertension, DM-II and chronic ILD s/p COVID who presents to ED complaining of SOB. And pulmonary edema on x-ray treated with IV diuretics with reduced ejection fraction from previous 40 to 45%
Patient has chronic kidney disease and follows with Dr. Baptiste
Renal consult for BERYL prevention
Baseline creatinine between 2 and 2.3
IMP:
Shortness of breath CHF
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
CKD stage 4 (baseline Cr� 2.5)-follows Dr Cast
DM2
CAD hx of [place], hx of stents
HTN
DM
GERD
h/o ACEI angioedema
h/o Henoch-Schonlein purpura
Gastric bypass 2010
ALISHA, mild, with nocturnal hypoxemia
PAD, SFA stent Apr 2020
JESI
Plan:
Creatinine up 2.5to 2.6 post lasix 11/11
last contrast exposure on 11/04
JESI in setting of contrast nephropathy following CTA of head and neck
BP are soft on low dose metoprolol
cont to hold hydralazine and Aldactone
vol status seem stable, wt down and no lasix today
chr rales on exam following COVID per pt
Follow BMP
May plan for high risk PCI once creatinine shows improvement at least below 2.4
she is at mod to high risk for BERYL
d/w pt in detail
-
-
Date of Service: November 12, 2024
CC / HPI / ROS
-
Chief Complaint:
CKD4
History of Present Illness:
CKD/Cr up at 2.6
Hemodynamically labile
wt down post lasix 11/11
Review of Systems:
Patient without chest pain or shortness of breath
no fevers
non oliguric
Labs
-
Labs:
WBC 7.0 10^3/uL (4.8-10.8) 11/11/24 03:08
RBC 3.09 10^6/uL (4.20-5.40) L 11/11/24 03:08
Hgb 8.6 g/dL (12.0-16.0) L 11/11/24 03:08
Hct 28.2 % (37.0-47.0) L 11/11/24 03:08
Plt Count 172 10^3/uL (130-400) D 11/11/24 03:08
Sodium 140 mmol/L (135-145) 11/12/24 03:45
Potassium 4.4 mmol/L (3.5-5.1) 11/12/24 03:45
Chloride 109 mmol/L (98-107) H 11/12/24 03:45
Carbon Dioxide 25 mmol/L (22-30) 11/12/24 03:45
BUN 51 mg/dl (7-17) H 11/12/24 03:45
Creatinine 2.6 mg/dL (0.6-1.0) H 11/12/24 03:45
eGFR 18.78 11/12/24 03:45
Glucose 97 mg/dl (70-99) 11/12/24 03:45
Calcium 8.4 mg/dl (8.4-10.2) 11/12/24 03:45
Mdm-V-Racuikzucps Pept 5210 pg/ml 11/04/24 05:54
Albumin 3.3 g/dl (3.5-5.0) L 11/02/24 07:11
Physical Exam
-
Vital Signs:
Vital Signs
Temp Pulse Resp BP Pulse Ox
98.1 F 53 20 94/47 96
11/12/24 10:49 11/12/24 08:50 11/12/24 10:49 11/12/24 08:50 11/12/24 10:49
Cardiovascular:: Regular rate and rhythm
Respiratory:: Bilateral: Rales (chronic)
Lung Excursion:: Normal
Abdomen:: Nontender and Soft
Bowel Sounds:: Normal
Extremity Edema:: None: Bilateral:
Cortez Catheter: No
[2024-11-12 12:41] LABS: Glucose - Point of Care 193 mg/dl (70-99)
--- NOTE | 2024-11-12 12:55 | CM ---
dc plans remain home with dhvn when medically stable. for cath/impella assist when cleared medically
[2024-11-12] MEDS: NOVOLOG FLEXPEN-LOW RESISTANCE 1 UNITS SC (13:21)
[2024-11-12 16:40] LABS: Glucose - Point of Care 118 mg/dl (70-99)
[2024-11-12] MEDS: NOVOLOG FLEXPEN 5 UNITS SC (16:40)
[2024-11-12] MEDS: LIPITOR 80 MG PO (16:43)
[2024-11-12] MEDS: DUONEB 3 ML INH ×2 (18:34→21:33)
--- NOTE | 2024-11-12 19:11 | PTCARENOTE ---
Patient called nurse stating she felt like her breathing was 'tight', not 'gurgling' like it was yesterday when she had respiratory difficulty. 99% on 3L NC, crackles remain bilaterally L>R. Notified respiratory for nebulizer treatment, patient
appears to be sleeping now and comfortable in bed.
[2024-11-12 22:27] LABS: Glucose - Point of Care 98 mg/dl (70-99)
[2024-11-12] MEDS: LYRICA 300 MG PO (22:27)
[2024-11-13] VITALS (9 sets, daily range): BP systolic 92–134; BP diastolic 43–59; PULSE 70; O2SAT 96; BMI 26.2
[2024-11-13 03:48] LABS: Glucose - Point of Care 92 mg/dl (70-99)
[2024-11-13 04:35] LABS: Blood Urea Nitrogen 46 mg/dl (7-17); Calcium 8.8 mg/dl (8.4-10.2); Carbon Dioxide 27 mmol/L (22-30); Chloride 110 mmol/L (98-107); Estimated Creatinine Clearance 17 ml/min; Glucose 85 mg/dl (70-99); Magnesium 2.5 mg/dl (1.6-2.3); Potassium 4.6 mmol/L (3.5-5.1); Sodium 143 mmol/L (135-145); eGFR 21.76
[2024-11-13 04:36] LABS: Hematocrit 30.1 % (37.0-47.0); Hemoglobin 9.2 g/dL (12.0-16.0); Mean Corp Hgb Conc. 30.6 g/dL (33.0-37.0); Mean Corpuscular Volume 91.8 fL (81.0-99.0); Mean Platelet Volume 13.2 fL (7.4-10.4); Platelet Count 189 10^3/uL (130-400); Red Blood Cell Count 3.28 10^6/uL (4.20-5.40); Red Cell Dist. Width 16.5 % (11.5-14.5)
[2024-11-13 07:27] LABS: Glucose - Point of Care 103 mg/dl (70-99)
[2024-11-13] MEDS: NOVOLOG FLEXPEN-LOW RESISTANCE SC ×3 (07:48→18:17)
--- NOTE | 2024-11-13 08:25 | PN.DE.MGMTRT ---
Insulin Management
- -
11/13/2024: Diabetes Management follow up
Patient admitted with c/o SOB. In the ED, noted to be markedly hypertensive with hypoxemia, CXR consistent with severe pulmonary edema. PMH: HTN, DM-II and chronic ILD s/p COVID.
Was taking Lantus 38 units @ HS and NovoLog 2-8 units AC. A1C 11.8%, Cr 2.0, eGFR 25.73
States she consistently monitors her blood sugars at home and that her FBG is usually 105 to 120 but her premeal glucose numbers are always elevated despite taking insulin before each meal. She uses SS NovoLog. Diabetes is managed by her PCP.
Patient awake, alert, oriented, sitting up in bed, offers no complaints, able to discuss diabetes care plan.
11/09 Lantus schedule was changed to AM given recurrent episodes of hypoglycemia at [facility]ador.
Received 14 units lantus in AM 11/12. Glucose range 98 to 193. 3:45AM glucose 92, fasting 103. Will continue current regiment lantus 14 units in AM with novolog 7 units breakfast and lunch. Will reduce dinner novolog to 4 units.
For cardiac cath 11/14.
Discussed with nurse.
Will cont to monitor and adjust AC insulin dose if necessary.
Diabetes History
- -
Type of Diabetes: 2 requiring insulin
Pre-Admission Diabetes Regimen
11/13/24
04:00
Creatinine 2.3 H
Lab Results
Hemoglobin A1c 11.8 % (4.0-5.6) H 10/29/24 03:26
Insulin Pump Settings
IP Diabetes Regimen
11/12/24 11/12/24 11/12/24
12:39 16:39 22:26
Glucose
POC Glucose 193 H 118 H 98
11/13/24 11/13/24 11/13/24
03:47 04:00 07:26
Glucose 85
POC Glucose 92 103 H
Meal type: Lunch
Amount consumed: 50%
Patient Education
--- NOTE | 2024-11-13 08:35 | W.PN.CARDCBS ---
Addendum entered and electronically signed by Dangelo Beavers MD 11/13/24 10:27:
I saw and examined the patient.
The CHILD'S NURSE or PA's note was reviewed and I agree with the note.
Comment: General: Well developed, well nourished in NAD.
Neck: Supple, no JVD, HJR, carotids +2 B/L, no bruits bilaterally.
Heart: Non displaced PMI, RRR, no murmurs, No S3, S4, no rubs.
Lungs: Scattered rhonchi
Extremities: No clubbing, cyanosis or edema bilaterally.
Neuro: Grossly nonfocal, awake, alert and oriented x3.
There may be a element of volume overload. Will give IV dose of Lasix today if okay with nephrology. Await timing of intervention/PCI. Discussed with interventional cardiology. Procedure possibly will happen on 11/14 if renal function stable.
Original Note:
Today's Communication / Plan
-
will discuss with interventional timing of impella assisted PCI as Cr improving
suspect will need dose of IV lasix today
d/w nephrology
Impression / Plan
-
PCP: Dr. Carlton
Typing Secretary: Dr. VICKY Danielson
Impression:
Presented 10/28/2024 w/ sudden onset SOB
Acute on chronic HFpEF
Elevated troponin, possible ACS
Hyperglycemia
CAD
s/p 2.5 mm Xience OM1 PCI 01/20/21
s/p Xience prox and overlapping previously placed distal OM-1 05/17/2019
s/p 2.5 mm Xience OM1 PCI 02/12/2019
PAD
s/p R common femoral endarterectomy w/ patch angioplasty and covered R iliac stent 01/2024
s/p right SFA angioplasty and stent 04/2020
h/o COVID 19 w/ residual parenchymal scarring
HTN
HLD
DM2
CKD 4
h/o Henoch-Schonlein purpura
Glaucoma
Celiac compression syndrome s/p WATCH COMMANDER for compression and dissected 2016
h/o gastric bypass 2010
h/o angioedema on ZAY inhibitors
Aortic atherosclerosis
h/o orthostasis on Terazosin
h/o TIA 2016
Iron deficiency anemia
Echo 08/06/2020: EF 64%. Mild LVH. Normal RV. Mild MAC with mild MR. No AI or . Trace TR. PAP 29 mmHg
Echo 01/19/2021: EF 55-60%, stage I diastolic dysfunction, trace MR, trace TR, PAP 21 mmHg
Echo 10/29/2024: EF 40-45%, Stage I diastolic dysfunction, mild inferolateral and inferior hypokinesis
Cardiac cath 11/01/2024: Left main 60% distal. LAD 40% ostial. Circumflex: Hazy 80% ostial, stents in OM1 with moderate diffuse ISR, smaller daughter branch of OM1 with 70% stenosis. RCA 60 to 70% ostial stenosis
Plan:
-74-year-old woman with past medical history of CAD with prior PCI presenting with dyspnea and admitted for acute heart failure. Echo here showed newly reduced left ventricular ejection fraction estimated at 45% with segmental wall motion
abnormalities. Subsequent left heart catheterization identified multivessel CAD and she was evaluated by CT surgery. Ultimately plan is for Impella assisted PCI, however hospitalization has been complicated by JESI on CKD.
-Cr trending down today, 2.3. continue to hold aldactone, hydralazine given JESI and hypotension
-timing of impella assisted PCI per interventional, possibly in AM. nephrology ok with plan for cath
-remains CP free
-continue asa, plavix, statin, zetia.
-she reports noting worsening SOB, last dose of lasix was 11/11. may require dose of IV lasix today, d/w nephro via TT. she has chronic crackles which she states are residual from prior covid illness.
-in SR. continue toprol
HPI: Steph is a 74 year old female with PMH of CAD, PAD, HFpEF, HTN, HLD, DM2, CKD, iron deficiency anemia, and glaucoma. Presented to [facility] ER with sudden onset shortness of breath. She was seen in the cardiology office on 10/22/2024 for evaluation
of intermittent chest discomfort which came on at rest following dinner. She had no exertional symptoms. She was started on pantoprazole at the time and reported resolution of her chest pain with this. Last night, after dinner she reported sudden
onset shortness of breath while sitting watching TV. EMS was called and she was started on BiPAP. On arrival to ER, she was noted to be significantly hypertensive and presented on IV nitroglycerin. Chest x-ray consistent with severe pulmonary
edema. She was started on IV Lasix and symptomatically has been improving. CT of chest negative for PE. Cardiology consulted for evaluation given elevated troponin and acute heart failure exacerbation. She reports she has no complaints. Denies
any chest pain and breathing is stable on high flow O2.
Progress Note - Typing Secretary
Subjective
Date of Service: November 13, 2024
no CP. reports worsening SOB
Objective
Labs:
11/13/24 04:00
11/13/24 04:00
Labs
Hgb 9.2 g/dL (12.0-16.0) L 11/13/24 04:00
Hct 30.1 % (37.0-47.0) L 11/13/24 04:00
Plt Count 189 10^3/uL (130-400) 11/13/24 04:00
PT 14.0 Sec (11.4-14.6) 11/02/24 07:11
INR 1.03 11/02/24 07:11
APTT Cancelled 11/07/24 06:00
Sodium 143 mmol/L (135-145) 11/13/24 04:00
Potassium 4.6 mmol/L (3.5-5.1) 11/13/24 04:00
BUN 46 mg/dl (7-17) H 11/13/24 04:00
Creatinine 2.3 mg/dL (0.6-1.0) H 11/13/24 04:00
Glucose 85 mg/dl (70-99) 11/13/24 04:00
Vital Signs and I&O:
Vital Signs
Temp Pulse Resp BP Pulse Ox
97.5 F 61 18 123/59 100
11/13/24 07:24 11/13/24 07:29 11/13/24 07:24 11/13/24 07:29 11/13/24 07:24
Vital Signs
Temp Pulse Resp BP Pulse Ox
97.5 F 61 18 123/59 100
11/13/24 07:24 11/13/24 07:29 11/13/24 07:24 11/13/24 07:29 11/13/24 07:24
Intake & Output
11/11/24 11/12/24 11/13/24 11/14/24
07:59 07:59 07:59 07:59
Intake Total 1220 / 1220 200 / 440 840 / 840
Output Total 525 / 525 1200 / 1200 250 / 250
Balance 695 / 695 -1000 / -760 590 / 590
Physical Exam
Physical Exam
GEN: No distress, awake, alert, oriented x3. on supp O2
HEENT: supple, anicteric, mmm, eomi
LUNGS: Crackles B/L, no wheezes
CV: Reg, S1/S2, 1/6 syst LSB, no murmur
ABD: soft, BS+, NT/ND
EXT: No cyanosis, clubbing, edema
NEURO: Gross non-focal
SKIN: Warm, pink, dry. No rash
[2024-11-13] MEDS: IMDUR (EXTENDED RELEASE) 30 MG PO (09:06)
[2024-11-13] MEDS: LOW STRENGTH ASPIRIN 81 MG PO (09:06)
[2024-11-13] MEDS: FEOSOL 325 MG PO (09:06)
[2024-11-13] MEDS: PROTONIX 40 MG PO (09:06)
[2024-11-13] MEDS: PLAVIX 75 MG PO (09:06)
[2024-11-13] MEDS: VITAMIN C 250 MG PO (09:07)
[2024-11-13] MEDS: TOPROL XL 25 MG PO (09:07)
[2024-11-13] MEDS: SODIUM BICARBONATE 650 MG PO ×2 (09:07→19:49)
[2024-11-13] MEDS: FLUSH (NSS) 1 FLUSH IV ×2 (09:08→19:48)
[2024-11-13] MEDS: SANTYL OINTMENT 1 APPLIC TOPICAL (09:08)
[2024-11-13] MEDS: ZETIA 10 MG PO (09:08)
--- NOTE | 2024-11-13 09:34 | PTCARENOTE ---
Received patient this morning resting in bed, happy that her creatinine is better this morning but told that cardiac cath would not be happening today. Patient ordering breakfast, cardiology speaking with her re: who will do her cath and timing.
[2024-11-13] MEDS: LANTUS 0.14 UNITS SC (10:25)
[2024-11-13] MEDS: NOVOLOG FLEXPEN 7 UNITS SC ×2 (10:25→13:13)
[2024-11-13] MEDS: LASIX 40 MG IV (10:28)
--- NOTE | 2024-11-13 12:03 | W.PN.NEPH.PH ---
Today's Communication / Plan
-
follow labs
Assessment/Plan
-
74y F with PMH significant for hypertension, DM-II and chronic ILD s/p COVID who presents to ED complaining of SOB. And pulmonary edema on x-ray treated with IV diuretics with reduced ejection fraction from previous 40 to 45%
Patient has chronic kidney disease and follows with Dr. Baptiste
Renal consult for BERYL prevention
Baseline creatinine between 2 and 2.3
IMP:
Shortness of breath CHF
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
CKD stage 4 (baseline Cr� 2.5)-follows Dr Cast
DM2
CAD hx of [place], hx of stents
HTN
DM
GERD
h/o ACEI angioedema
h/o Henoch-Schonlein purpura
Gastric bypass 2010
ALISHA, mild, with nocturnal hypoxemia
PAD, SFA stent Apr 2020
JESI
Plan:
Creatinine down to 2.3 today at baseline
last contrast exposure on 11/04
JESI in setting of contrast nephropathy following CTA of head and neck
BP are stable on low dose metoprolol
cont to hold hydralazine and Aldactone
mild sob today, agree with lasix
monitor wts daily
Follow BMP
May plan for high risk PCI tomorrow as long as cr stable
she is at mod to high risk for BERYL
d/w pt in detail
-
-
Date of Service: November 13, 2024
CC / HPI / ROS
-
Chief Complaint:
CKD4
History of Present Illness:
CKD/Cr down at 2.3
Hemodynamically labile
wt slightly up today
Review of Systems:
Patient without chest pain, mild sob with cough today
no fevers
non oliguric
Labs
-
Labs:
WBC 8.0 10^3/uL (4.8-10.8) 11/13/24 04:00
RBC 3.28 10^6/uL (4.20-5.40) L 11/13/24 04:00
Hgb 9.2 g/dL (12.0-16.0) L 11/13/24 04:00
Hct 30.1 % (37.0-47.0) L 11/13/24 04:00
Plt Count 189 10^3/uL (130-400) 11/13/24 04:00
Sodium 143 mmol/L (135-145) 11/13/24 04:00
Potassium 4.6 mmol/L (3.5-5.1) 11/13/24 04:00
Chloride 110 mmol/L (98-107) H 11/13/24 04:00
Carbon Dioxide 27 mmol/L (22-30) 11/13/24 04:00
BUN 46 mg/dl (7-17) H 11/13/24 04:00
Creatinine 2.3 mg/dL (0.6-1.0) H 11/13/24 04:00
eGFR 21.76 11/13/24 04:00
Glucose 85 mg/dl (70-99) 11/13/24 04:00
Calcium 8.8 mg/dl (8.4-10.2) 11/13/24 04:00
Xed-A-Ybxkzjotdnu Pept 5210 pg/ml 11/04/24 05:54
Albumin 3.3 g/dl (3.5-5.0) L 11/02/24 07:11
Physical Exam
-
Vital Signs:
Vital Signs
Temp Pulse Resp BP Pulse Ox
97.5 F 67 18 127/51 100
11/13/24 07:24 11/13/24 10:28 11/13/24 07:24 11/13/24 10:28 11/13/24 07:24
Cardiovascular:: Regular rate and rhythm
Respiratory:: Bilateral: Rales (chronic)
Lung Excursion:: Normal
Abdomen:: Nontender and Soft
Bowel Sounds:: Normal
Extremity Edema:: None: Bilateral:
Cortez Catheter: No
[2024-11-13 12:53] LABS: Glucose - Point of Care 144 mg/dl (70-99)
--- NOTE | 2024-11-13 13:39 | W.PN.HOSP.TC ---
Today's Communication/Plan
-
Monitor renal function. Probable diuresis. Reevaluation for cardiac intervention over the next 24 hours.
Assessment / Plan
Assessment / Plan
Physical exam:
General: Acute on chronically ill
HEENT: Normocephalic, Atraumatic and Moist Mucous Membranes
Respiratory: Clear to Auscultation; Negative Wheezes, Rales or Rhonchi
Cardiac: Regular Rhythm and S1/S2
GI: Soft, Nontender and Nondistended
Musculoskeletal: No Clubbing, No Cyanosis and No Edema
Neuro: Awake, Alert and Oriented, no neurological deficits
Psych: Calm
A/P:
Impression:
Patient 74 F with Hx HTN, HLD, DM, CKD p/w NSTEMI and CHF. Cath showed multi-vessel CAD therefore plan for CABG. CT surgery following.
Noted to have carotid artery stenosis, vascular surgery consulted
Seen by vascular surgery and cleared for CABG.
High risk CABG versus high risk PCI.
Ongoing discussion with cardiology and cardiothoracic surgeon.
Plan for high risk PCI.
Creatinine was elevated, cardiac cath postponed
Received IV fluid but developed shortness of breath and wheezing, was given Lasix.
Plan for Impella assisted PCI pending stabilization of renal function.
Plan for high risk PCI once creatinine goes below 2.4 or once cleared by nephrology; today creatinine 2.3--> possible intervention tomorrow 11/14. Cardiology would like to diurese her today but will discuss with nephrology.
Assessment/plan:
Left main and multivessel CAD:
Status postcardiac cath
Plan for coronary bypass and workup in progress
Continue aspirin and heparin drip
Continue beta-blockers and statin
Cardiology and CT surgery on board
Continue cardiac monitoring.
Seen by vascular surgery for carotid artery stenosis, cleared for surgery
High risk CABG versus high risk PCI.
Ongoing discussion with cardiology and cardiothoracic surgery.
Initial plan for cath, Postponed cardiac catheter for elevated creatinine.
Gentle IVF. Followed by diuresis. No plans for cath per cardiology yet.
Bilateral carotid stenoses, right side likely greater than 70%, left side 50 to 69%.
Seen by vascular surgeon Dr. Stahl.
Recommending coronary revascularization without prior carotid revascularization.
Acute systolic CHF with flash pulmonary edema presentation:
Initially received IV diuresis. IV Lasix on hold currently
Echocardiogram showed EF 40 to 45%
GDMT-on beta-blockers, hydralazine and nitrates, and spironolactone.
11/11
Patient received fluid yesterday and following day started develop acute onset of shortness of breath and wheezing.
Received IV lasix.
No Lasix today on 11/12 per nephrology
JESI on Chronic kidney disease stage IV:
Nephrology consult appreciated
Avoid nephrotoxic
cont sodium bicarb
Monitor renal function
Acute hypoxic respiratory failure, POA:
Improved
Back on room air today
Continue to monitor respiratory status closely
Hypertension:
Continue current meds
Diabetes mellitus type 2:
Insulin sliding scale
Monitor blood sugars closely
CODE STATUS: Full code
DVT prophylaxis: SCds
Diet: DM diet- NPO after midnight for possible cath.
Total time spent on today's encounter was 65 minutes which included time spent in counseling the patient/family regarding diagnosis and treatment plan as listed above, goals of care, and symptom management. Case was discussed with nursing staff,
specialists, and care coordinators/case management. All labs and imaging personally reviewed by me. Remainder the time spent in detailed review of previous records, lab data, imaging, and other medical provider documentation.
Anticipated Discharge: > 48 hours
Subjective/Interval History
-
Date of Service: November 13, 2024
Patient denies chest pain or shortness of breath today. Afebrile
Objective Data
-
Labs:
Laboratory Results
11/13/24
04:00
WBC 8.0
Hgb 9.2 L
Hct 30.1 L
Plt Count 189
Sodium 143
Potassium 4.6
Chloride 110 H
Carbon Dioxide 27
BUN 46 H
Creatinine 2.3 H
Glucose 85
Calcium 8.8
Vital Signs:
Vital Signs
Temp Pulse Resp BP Pulse Ox
97.5 F 65 18 109/43 100
11/13/24 07:24 11/13/24 12:00 11/13/24 07:24 11/13/24 11:45 11/13/24 07:24
I&O
11/12/24 11/13/24 11/14/24
06:59 06:59 06:59
Intake Total 200 / 200 840 / 840
Output Total 1200 / 1200 250 / 250
Balance -1000 / -1000 840 / 840 -250 / -250
[2024-11-13 17:39] LABS: Glucose - Point of Care 78 mg/dl (70-99)
[2024-11-13] MEDS: NOVOLOG FLEXPEN 2 UNITS SC (18:24)
[2024-11-13] MEDS: LIPITOR 80 MG PO (18:25)
--- NOTE | 2024-11-13 18:27 | PTCARENOTE ---
Patient's dinner accu check is 78, ate only 1/2 of her dinner. Patient given half of bolus meal dose of novolog (2 units) as per order.
--- NOTE | 2024-11-13 21:48 | PTCARENOTE ---
Rec'd pt at change of shift. Pt AAO*3, VSS, and Sr on TELE monitor. Pt denies any pain or discomfort and updated on plan of care. Agreeable to NPO status at midnight. Pt resting with call duran in reach and plan of care ongoing. See MAR and
flowchart for full pt care and assessment.
[2024-11-13] MEDS: LYRICA 300 MG PO (22:06)
[2024-11-13 22:11] LABS: Glucose - Point of Care 246 mg/dl (70-99)
[2024-11-14] VITALS (23 sets, daily range): BP systolic 61–137; BP diastolic 28–64; BMI 25.4
[2024-11-14 04:42] LABS: Hematocrit 28.8 % (37.0-47.0); Mean Corp Hgb Conc. 31.3 g/dL (33.0-37.0); Mean Corpuscular Hgb 28.1 pg (27.0-31.0); Mean Platelet Volume 13.5 fL (7.4-10.4); Platelet Count 191 10^3/uL (130-400); Red Cell Dist. Width 16.5 % (11.5-14.5); White Blood Cell Count 7.3 10^3/uL (4.8-10.8)
[2024-11-14 05:09] LABS: Blood Urea Nitrogen 46 mg/dl (7-17); Calcium 8.6 mg/dl (8.4-10.2); Carbon Dioxide 27 mmol/L (22-30); Chloride 109 mmol/L (98-107); Estimated Creatinine Clearance 16 ml/min; Glucose 120 mg/dl (70-99); Potassium 4.4 mmol/L (3.5-5.1); Sodium 141 mmol/L (135-145); eGFR 22.95
[2024-11-14 07:48] LABS: Glucose - Point of Care 116 mg/dl (70-99)
[2024-11-14] MEDS: NOVOLOG FLEXPEN SC ×3 (07:49→19:15)
[2024-11-14] MEDS: NOVOLOG FLEXPEN-LOW RESISTANCE SC ×3 (07:49→19:15)
--- NOTE | 2024-11-14 07:57 | W.PN.HOSP.TC ---
Today's Communication/Plan
-
High risk PCI today.
Assessment / Plan
Assessment / Plan
Physical exam:
General: Acute on chronically ill
HEENT: Normocephalic, Atraumatic and Moist Mucous Membranes
Respiratory: Clear to Auscultation; Negative Wheezes, Rales or Rhonchi
Cardiac: Regular Rhythm and S1/S2
GI: Soft, Nontender and Nondistended
Musculoskeletal: No Clubbing, No Cyanosis and No Edema
Neuro: Awake, Alert and Oriented, no neurological deficits
Psych: Calm
A/P:
Impression:
Patient 74 F with Hx HTN, HLD, DM, CKD, ILD, PVD, CAD, CHF, p/w NSTEMI and Pulmonary Edema. Cath showed multi-vessel CAD. CT surgery consulted for possible CABG. Nephrology, pulmonary, cardiology, vascular surgery evaluated the patient and okay
for bypass. CT surgery reevaluated the patient and felt high risk and PCI recommended rather than CABG.
Assessment/plan:
Left main and multivessel CAD:
Status post diagnostic cardiac cath on 11/01 revealed 60% distal left main and hazy 80% ostial circumflex stenosis and moderate CAD at the origin of LAD.
On DAPT aspirin 81 mg p.o. daily, Plavix 75 mg p.o. daily; nitrates Imdur 30 mg p.o. daily; beta-blockers metoprolol succinate 25 mg p.o. daily; statins atorvastatin 80 mg p.o. every evening.
Plan for high risk PCI today on 11/14
Bilateral carotid stenoses, right side likely greater than 70%, left side 50 to 69%.
Seen by vascular surgeon Dr. Stahl.
Recommending coronary revascularization without prior carotid revascularization in light of high risk for peripheral vascular intervention prior to addressing coronary arteries.
Acute systolic CHF with flash pulmonary edema presentation:
Diuretics as needed-last dose Lasix 40 mg IV x1 on 11/13
Echocardiogram showed EF 40 to 45%
GDMT-on beta-blockers only for now.
Hydralazine and spironolactone on hold to avoid hypotension and worsening JESI.
JESI on Chronic kidney disease stage IV:
Nephrology consult and follow-up appreciated
Avoid nephrotoxic
On po sodium bicarb
Monitor renal function
IV bicarb drip infusion precontrast protocol today on 11/14 per nephrology.
Acute hypoxic respiratory failure, POA:
Improved
On supplemental oxygen as needed
Hypertension:
Continue current meds
Diabetes mellitus type 2:
Insulin sliding scale
On Lantus 14 units daily in the morning.
On NovoLog 7 units in the morning, 7 units at lunchtime, and 4 units in the evening.
RESTAURANT CREW DM on board
ILD:
Pulmonary consult appreciated and cleared her for surgery
PFTs in hospital shows mild to moderate restriction with moderate reduction in diffusion capacity
DVT prophylaxis:
SCD's
Has been on heparin drip multiple times on and off. Will resume heparin 5,000 units subcutaneous 3 times a day postprocedure if no bleeding and hemoglobin stable.
CODE STATUS:
Full code
Total time spent on today's encounter was 65 minutes which included time spent in counseling the patient/family regarding diagnosis and treatment plan as listed above, goals of care, and symptom management. Case was discussed with nursing staff,
specialists, and care coordinators/case management. All labs and imaging personally reviewed by me. Remainder the time spent in detailed review of previous records, lab data, imaging, and other medical provider documentation.
Anticipated Discharge: 24 - 48 hours
Subjective/Interval History
-
Date of Service: November 14, 2024
Patient feels better than yesterday although still some shortness of breath. No chest pain. Afebrile.
Objective Data
-
Labs:
Laboratory Results
11/14/24
04:13
WBC 7.3
Hgb 9.0 L
Hct 28.8 L
Plt Count 191
Sodium 141
Potassium 4.4
Chloride 109 H
Carbon Dioxide 27
BUN 46 H
Creatinine 2.2 H
Glucose 120 H
Calcium 8.6
Vital Signs:
Vital Signs
Temp Pulse Resp BP Pulse Ox
97.7 F 58 16 122/59 94
11/14/24 04:04 11/14/24 07:49 11/14/24 04:04 11/14/24 07:49 11/14/24 07:49
I&O
11/13/24 11/14/24 11/15/24
06:59 06:59 06:59
Intake Total 840 / 840 1080 / 1080
Output Total 1800 / 1800
Balance 840 / 840 -720 / -720
--- NOTE | 2024-11-14 08:00 | PN.DE.MGMTRT ---
Insulin Management
- -
11/14/2024: Diabetes Management follow up
Patient admitted 10/28 with c/o SOB. In the ED, noted to be markedly hypertensive with hypoxemia, CXR consistent with severe pulmonary edema. PMH: HTN, DM-II and chronic ILD s/p COVID.
Was taking Lantus 38 units @ HS and NovoLog 2-8 units AC. A1C 11.8%, Cr 2.0, eGFR 25.73
States she consistently monitors her blood sugars at home and that her FBG is usually 105 to 120 but her premeal glucose numbers are always elevated despite taking insulin before each meal. She uses SS NovoLog. Diabetes is managed by her PCP.
Patient awake, alert, oriented, sitting up in bed, offers no complaints, able to discuss diabetes care plan.
11/09 Lantus schedule was changed to AM given recurrent episodes of hypoglycemia at amador.
Received 14 units lantus in AM 11/13. Glucose range 78 to 246. 246 was @ HS, patient only received 2 units novolog with dinner.
Will continue current regimen lantus 14 units in AM with novolog 7 units breakfast and lunch, novolog to 4 units with dinner.
For cardiac cath today, patient is NPO.
Discussed with nurse.
Will cont to monitor and adjust AC insulin dose if necessary.
Diabetes History
- -
Type of Diabetes: 2 requiring insulin
Pre-Admission Diabetes Regimen
11/14/24
04:13
Creatinine 2.2 H
Lab Results
Hemoglobin A1c 11.8 % (4.0-5.6) H 10/29/24 03:26
Insulin Pump Settings
IP Diabetes Regimen
11/13/24 11/13/24 11/13/24
12:51 17:38 22:09
Glucose
POC Glucose 144 H 78 246 H
11/14/24 11/14/24
04:13 07:46
Glucose 120 H
POC Glucose 116 H
Meal type: Dinner
Meal type: Lunch
Amount consumed: 50%
Amount consumed: 100%
Patient Education
[2024-11-14] MEDS: ZETIA 10 MG PO (08:02)
[2024-11-14] MEDS: LANTUS 0.14 UNITS SC (08:02)
[2024-11-14] MEDS: PROTONIX 40 MG PO (08:03)
[2024-11-14] MEDS: LOW STRENGTH ASPIRIN 81 MG PO (08:03)
[2024-11-14] MEDS: FEOSOL PO (08:03)
[2024-11-14] MEDS: SODIUM BICARBONATE 650 MG PO ×2 (08:03→23:32)
[2024-11-14] MEDS: TOPROL XL 25 MG PO (08:03)
[2024-11-14] MEDS: PLAVIX 75 MG PO (08:03)
[2024-11-14] MEDS: SANTYL OINTMENT 1 APPLIC TOPICAL (08:04)
[2024-11-14] MEDS: VITAMIN C PO (08:05)
[2024-11-14] MEDS: IMDUR (EXTENDED RELEASE) 30 MG PO (08:06)
--- NOTE | 2024-11-14 11:15 | PTCARENOTE ---
Pt is AOx3, no complaints of pain or discomfort. Pt is assist x1 OOB with walker. SR w/ 1st HB on tele monitor, VSS. 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 Blood sugars monitored. Call duran within reach.
--- NOTE | 2024-11-14 11:19 | W.PN.NEPH.PH ---
Today's Communication / Plan
-
PCI
Assessment/Plan
-
74y F with PMH significant for hypertension, DM-II and chronic ILD s/p COVID who presents to ED complaining of SOB. And pulmonary edema on x-ray treated with IV diuretics with reduced ejection fraction from previous 40 to 45%
Patient has chronic kidney disease and follows with Dr. Baptiste
Renal consult for BERYL prevention
Baseline creatinine between 2 and 2.3
IMP:
Shortness of breath CHF
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
CKD stage 4 (baseline Cr� 2.5)-follows Dr Cast
DM2
CAD hx of DE, hx of stents
HTN
DM
GERD
h/o ACEI angioedema
h/o Henoch-Schonlein purpura
Gastric bypass 2010
ALISHA, mild, with nocturnal hypoxemia
PAD, SFA stent Apr 2020
JESI
Plan:
for high risk PCI
follow BMP
bicarb IVF
-
-
Date of Service: November 14, 2024
CC / HPI / ROS
-
Chief Complaint:
CKD4
History of Present Illness:
CKD/Cr down at 2.2
Hemodynamically stable
nonoliguric
hgb 9 stable
Review of Systems:
no CP/SOB
no fevers
non oliguric
Labs
-
Labs:
WBC 7.3 10^3/uL (4.8-10.8) 11/14/24 04:13
RBC 3.20 10^6/uL (4.20-5.40) L 11/14/24 04:13
Hgb 9.0 g/dL (12.0-16.0) L 11/14/24 04:13
Hct 28.8 % (37.0-47.0) L 11/14/24 04:13
Plt Count 191 10^3/uL (130-400) 11/14/24 04:13
Sodium 141 mmol/L (135-145) 11/14/24 04:13
Potassium 4.4 mmol/L (3.5-5.1) 11/14/24 04:13
Chloride 109 mmol/L (98-107) H 11/14/24 04:13
Carbon Dioxide 27 mmol/L (22-30) 11/14/24 04:13
BUN 46 mg/dl (7-17) H 11/14/24 04:13
Creatinine 2.2 mg/dL (0.6-1.0) H 11/14/24 04:13
eGFR 22.95 11/14/24 04:13
Glucose 120 mg/dl (70-99) H 11/14/24 04:13
Calcium 8.6 mg/dl (8.4-10.2) 11/14/24 04:13
Shu-H-Dbyeeqsyrnt Pept 5210 pg/ml 11/04/24 05:54
Albumin 3.3 g/dl (3.5-5.0) L 11/02/24 07:11
Physical Exam
-
Vital Signs:
Vital Signs
Temp Pulse Resp BP Pulse Ox
98.0 F 60 20 122/59 94
11/14/24 07:59 11/14/24 08:03 11/14/24 07:59 11/14/24 08:03 11/14/24 07:59
Cardiovascular:: Regular rate and rhythm
Respiratory:: Bilateral: CTA
Lung Excursion:: Normal
Abdomen:: Nontender and Soft
Bowel Sounds:: Normal
Extremity Edema:: None: Bilateral:
[2024-11-14 12:10] LABS: Glucose - Point of Care 86 mg/dl (70-99)
[2024-11-14 13:31] LABS: Glucose - Point of Care 97 mg/dl (70-99)
--- NOTE | 2024-11-14 13:39 | CM ---
CM following for DC planning needs.
Met w/ patient at bedside. She reports that she is feeling well and is hopeful for Cardiac Cath soon, which she has been waiting for.
Emotional support provided.
DC plan is anticipated for home w/ home health care, if she feels this is necessary. PT evaluation dated 11/13 recommending home health.
Referral was made to [facility] earlier in the hospitalization; patient was accepted.
Antic. home w/ [facility] once stable.
Will follow.
[2024-11-14] MEDS: SODIUM BICARBONATE 1150 MEQ IV (13:44)
--- NOTE | 2024-11-14 13:58 | PTCARENOTE ---
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 gave report to ACACIA vela. bicarb gtt infusing per orders. family at bedside and updated on plan.
[2024-11-14 14:53] LABS: ACT-LR - POC 356 Seconds (116-155)
[2024-11-14 15:19] LABS: ACT-LR - POC 361 Seconds (116-155)
[2024-11-14 15:43] LABS: ACT-LR - POC 321 Seconds (116-155)
[2024-11-14 16:07] LABS: ACT-LR - POC 300 Seconds (116-155)
[2024-11-14 16:30] LABS: ACT-LR - POC 300 Seconds (116-155)
[2024-11-14 17:02] LABS: ACT-LR - POC 305 Seconds (116-155)
[2024-11-14 17:28] LABS: ACT-LR - POC 290 Seconds (116-155)
[2024-11-14 18:39] LABS: ACT-LR - POC 368 Seconds (116-155)
[2024-11-14 18:39] LABS: ACT-LR - POC 364 Seconds (116-155)
[2024-11-14] MEDS: NITROGLYCERIN PREMIX 250 IV (19:13)
--- NOTE | 2024-11-14 19:13 | ITS.CL.CATH ---
[facility] [employer] [facility] - Catheterization
Cardiac Catheterization
Procedure Report:
CORONARY INTERVENTION
Date of Procedure: November 14, 2024
Referring: Dr. Melvin Maurice MD
PROCEDURES:
1. Left heart catheterization with selective left coronary angiography.
2. Moderate sedation.
3. Successful complex percutaneous coronary artery intervention with one 3.0 x 22 mm Medtronics [place] drug-eluting stent from distal left main into left circumflex artery/OM1 and a second 2.75 x 18 mm Medtronic [place] drug-eluting stent from distal
left main into proximal LAD, postdilated using IVUS guidance with a 2.75 x 15 mm NC balloon at 16 rock distally in the LAD and 3.5 x 8 mm NC balloon at 20 rock in the left main and a 3.0 x 15 mm NC balloon at 18 rock in OM1 with an excellent
angiographic result.
4. Intravascular ultrasound (IVUS) of LM-LAD and LM to LCx.
INDICATION: This is a 74-year-old diabetic female with a prior history of CKD St 3b, coronary artery disease and multiple overlapping stents in the first obtuse marginal branch dating back to 2019, peripheral vascular disease with right common
femoral endarterectomy with patch angioplasty and covered right iliac stent, hypertension, hyperlipidemia, and poorly controlled diabetes who presented to [facility] for evaluation of shortness of breath and occasional chest tightness which
occurred at rest after eating. Her troponin was found to be mildly elevated peaking at 0.705 ng/mL. She was found to have significant distal left main stenosis, ostial left circumflex stenosis, moderate ostial LAD disease, and iFR negative RCA
disease. Echo showed LVEF 40-45%. She was evaluated by CT surgery and not deemed to be good surgery candidate and is now referred for complex bifurcational distal LM to LCX-LAD PCI. She has been loaded with plavix and remains on this with stable
anemia. Creat 2.2 at baseline.
ACCESS: Common femoral artery, 7 [place] sheath, under ultrasound guidance using a micropuncture kit none.
HEMODYNAMICS : (mmHg)
AO (s/d) : 134/52, 86mmHG mean
LVEDP : 32
CORONARY FINDINGS
DOMINANCE: Right
LEFT MAIN: 60% distal left main stenosis
LEFT ANTERIOR DESCENDIN% ostial LAD with diffuse mild plaque throughout the mid to distal vessel. Several small diagonal branches arise from the mid LAD.
CIRCUMFLEX: Hazy, calcified 95% ostial circumflex stenosis. There are stents in OM1 with moderate diffuse in-stent restenosis. OM1 is a moderate caliber vessel that bifurcates into 2 small caliber daughter branches distally beyond the stented
segment. The larger daughter branch has a 80% ostial stenosis. The AV circumflex gives rise to several additional small obtuse marginal branches
RIGHT CORONARY ARTERY: The right coronary artery was not selectively shot on this study. On recent diagnostic study, RCA is a dominant vessel with a 60-70% ostial stenosis. The mid to distal right coronary artery has only minor irregularities but no
focal high-grade obstructive stenosis. iFR negative at 0.97
CORONARY INTERVENTION: After detailed informed consent was obtained discussing all the major risks iraida that of kidney injury in setting of known CKD St. 3B, the patient was transported to the cardiac catheterization lab where a 'Time Out' was
performed. After the usual sterile prep and drape, the right groin site was locally anesthetized. Ultrasound was utilized for vascular access. The femoral artery was visualized under ultrasound, and the vessel was patent and pulsatile. An image was
stored permanently in the patient's medical record in PACS. The right femoral site was locally anesthetized. Under direct ultrasound guidance, a micropuncture needle was used to access femoral artery and a 7Fr vascular sheath inserted into the
common femoral artery. We then proceeded with percutaneous coronary intervention of the left main (60%, ROEL III, type C), left circumflex (95%, ROEL III, type C), LAD (60%, ROEL III, type C). The patient was given adjunctive IV unfractionated
heparin (target ACT > 300 seconds) and had received aspirin plus clopidogrel pre-treatment. After using a 7F EBU 3.5 guide catheter to engage the left main ostium, an 0.014' RunThrough wire was navigated into the distal OM1, and a 0.014� BMW was
placed in the LAD. The severe 95% stenosis of the LCx was pre-dilated with a 2.5x12 mm Euphora Rx balloon, followed by 3.0x 12mm NC balloon and then stented with a 3.0 x 22 mm Hernan [place] drug-eluting stent, which was post-dilated with a 3.0 mm
distally and 3.5 mm in the left main NC at 18atm. We then attempted to wire the LAD and failed with 190cm BMW, Whisper, 300cm Mineral Engineer 50, twin-pass. We eventually successfully wired the LAD using a 90 degree Supercross and a 300cm RunThrough wire
through it through the stent struts. The stent struts were sequentially dilated and then a 2.75 x 18 mm Hernan [place] drug eluting stent was deployed. This stent was post-dilated with a 2.75 (distally) and 3.5 mm (proximally) NC balloons at high
pressures. We then rewired the LCx and dilated the stent struts. We performed kissing inflation of the LAD and LCx, and completed with left main proximal optimization technique with a 3.5 NC balloon. We then performed intravascular imaging with a
[place] eye intravascular ultrasound catheter of the LAD and then the LCx that showed excellent stent expansion and apposition without proximal or distal edge dissection. There was 0% residual stenosis of the stented segments in the left main,
LAD and LCx and preserved ROEL-3 flow at completion angiography in all three vessels. There were no intra-procedural complications. The femoral sheath was sutured in place to be removed by manual pressure for hemostasis given history of femoral
endarterectomy of the vessel once ACT <200ms.
SEDATION: 137 minutes of procedural sedation was utilized. An independent medical safety director was present to assist with and help manage the patient's level of consciousness and physiologic status.
RADIATION SUMMARY: Fluoro Time (min): 67.2, Dose (mGy): 2102.86, DAP (Gy.cm2) : 60.1
Closure Device: Given prior right ORACLE SOFTWARE ENGINEER endarterectomy, once ACT is below 170 ms, the sheath will be pulled to achieve hemostasis with manual pressure.
CONCLUSIONS
1. Successful complex percutaneous coronary artery intervention with one 3.0 x 22 mm Medtronics [place] drug-eluting stent from distal left main into left circumflex artery/OM1 and a second 2.75 x 18 mm Medtronic [place] drug-eluting stent from distal
left main into proximal LAD, postdilated using IVUS guidance with a 2.75 x 15 mm NC balloon at 16 rock distally in the LAD and 3.5 x 8 mm NC balloon at 20 rock in the left main and a 3.0 x 15 mm NC balloon at 18 rock in OM1 with an excellent
angiographic result.
2. Significantly elevated left ventricular end-diastolic pressure at 32 mmHg
RECOMMENDATIONS
1. Uninterrupted dual antiplatelet therapy with daily baby aspirin and Plavix 75 mg along with high intensity statin and beta-pasha as tolerated.
2. Nitroglycerin drip to maintain systolic blood pressure less than 140 to allow for a safe sheath pull once ACT is below 170 ms.
3. Bedrest per protocol.
4. Goal-directed medical therapy for underlying coronary artery disease and mild ischemic cardiomyopathy.
5. Referral for outpatient cardiac rehab.
Copy to: Dr. Melvin Danielson, Dr. Melvin Maurice, Dr. Dangelo Beavers
Daniela Vargas MD, [facility], [facility]
[2024-11-14] MEDS: LIPITOR PO (19:15)
[2024-11-14 19:16] LABS: Glucose - Point of Care 108 mg/dl (70-99)
--- NOTE | 2024-11-14 19:18 | PTCARENOTE ---
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 A-line in place. nitro gtt started per orders. Dr Vargas at bedside, showed the marked dressing on right groin. Dr Vargas redressed R groin site. pt educated on restrictions at this time. Will report to next shift.
[2024-11-14 20:28] LABS: ACT-LR - POC 223 Seconds (116-155)
[2024-11-14] MEDS: TRANDATE 10 MG IV (20:30)
[2024-11-14 20:48] LABS: Glucose - Point of Care 151 mg/dl (70-99)
[2024-11-14 20:56] LABS: Hematocrit 25.5 % (37.0-47.0); Hemoglobin 8.1 g/dL (12.0-16.0)
[2024-11-14 21:18] LABS: ACT-LR - POC 229 Seconds (116-155)
[2024-11-14 21:48] LABS: ACT-LR - POC 187 Seconds (116-155)
[2024-11-14 22:22] LABS: ACT-LR - POC 161 Seconds (116-155)
--- NOTE | 2024-11-14 23:28 | W.PN.UPDATE ---
Update Note
Progress Note Update
-came in urgently @ ~ 8:25 pm d/t R groin bleeding, oozing around the sheath, gauze dressing was saturated and oozing out. ACT was 230s. SBP was 180s-190s on IV Nitro @ 25. Uptitrated iv Nitro to 50 for BP control. Gave 10 mg iv Labetalol and
titrated Nitro down to off. SBP dropped down to 60s. Pt was awake and talking through the whole episode. Denied any lightheadedness, CP or pain in abdomen or back. No syncope. Continued to hold manual pressure on the R groin as sheath was in and
groin bleeding stopped. Groin was soft and without any hematoma. Pt was put in Trendelenburg, fluids started, Levo started briefly 2-6. H/H and type and screen were sent. Discussed with Dr. Vargas - checked ECG: without acute change. Urgent Echo was
called - LVEF 50-55, no effusion. Hg trended down from 9.0 to 8.1. Pt was not tachycardic (hr 50s), BP improved and pt remained hemodynamically stable. Pt had no complaints and was A&O. Suspect iv Labetalol causing some bradycardia and hypotension.
-when ACT was 160, removed R groin sheath without problems. Manual pressure was held for about 30 min as purewick was placed also. No hematoma. BP is stable 115/48, hr 58 sinus. Will continue to monitor closely.
--- NOTE | 2024-11-14 23:29 | W.PN.CARD.SR ---
Sheath/IABP Sheath Removal
Sheath Removal
Right Arterial Femoral:
Site appearance prior to sheath removal: Oozing
Size of hematoma in cm: 0
Sheath removed by:: Physician account assistant
Name of associate removing sheath: Elmercassieimtiaz Silva
Time of sheath removal: 22:45
Time hemostasis achieved: 23:15
Site appearance post sheath removal: Intact and Ecchymotic
Size of hematoma in cm: 0
Method of Hemostasis Post Sheath Removal: External Hemostasis Pad and Manual Pressure
Dressing dry and intact?: Yes
Comments: R groin is soft, dry, clean, mildly echymotic, no hematoma. R DP and PT present by Doppler
[2024-11-14] MEDS: TYLENOL 650 MG PO (23:32)
[2024-11-14] MEDS: LYRICA 300 MG PO (23:32)
[2024-11-15] VITALS (28 sets, daily range): BP systolic 90–126; BP diastolic 40–89; PULSE 60; BMI 25.5
[2024-11-15 00:02] LABS: Glucose - Point of Care 147 mg/dl (70-99)
--- NOTE | 2024-11-15 01:44 | PTCARENOTE ---
Rec'd pt from public works laborer with R femoral artery line. PT with elevated BP in 170's systolic. DR Vargas at bedside and changed dressing. Rec'd order to titrate nitroglycerin for systolic bp under 140. PT SR on TELE monitor. See MAR and flowchart for
full pt care and assessment.
--- NOTE | 2024-11-15 01:48 | PTCARENOTE ---
Pt BP remains elevated systolic bp 180's and R femoral artery site oozing. CEDRICK yanes asware and came to assess pt at bedside. Manual pressure held. Nitro titrated up to 50mcg. Rec'd order for CT Pa for 10mg IV Labetalol and given as ordered
with PA at beside. Pressure then dropped significantly with systolic bp in the 60-70's. IV fluids started. IV Levophed started as ordered. Pt Trendelenburg-ed and left lower extremity elevated. Pt AAO*3 for entire care/ procedure. ACT still
elevated at this time. Pt denies pain or discomfort. PT bp recovered with BP in the 130-140's. Levophed and IV fluid discontinued.
--- NOTE | 2024-11-15 01:53 | PTCARENOTE ---
ACT 161, PT bp stable. CT CEDRICK yanes at bedside. R femoral artery sheath removed and manual pressure applied. Pt stable. Pt aware and agreed to lower extremity restriction. PT resting with call duran in reach. No fluids or iv medications
infusing. Plan of care ongoing. VSS and SR on TELE monitor. Pt on bed rest for 6 hours.
[2024-11-15 04:27] LABS: Hematocrit 24.2 % (37.0-47.0); Hemoglobin 7.5 g/dL (12.0-16.0); Mean Corpuscular Hgb 28.3 pg (27.0-31.0); Mean Corpuscular Volume 91.3 fL (81.0-99.0); Mean Platelet Volume 13.4 fL (7.4-10.4); Platelet Count 194 10^3/uL (130-400); Red Blood Cell Count 2.65 10^6/uL (4.20-5.40); Red Cell Dist. Width 16.5 % (11.5-14.5); White Blood Cell Count 7.8 10^3/uL (4.8-10.8)
[2024-11-15 04:37] LABS: Blood Urea Nitrogen 40 mg/dl (7-17); Carbon Dioxide 25 mmol/L (22-30); Chloride 110 mmol/L (98-107); Estimated Creatinine Clearance 18 ml/min; Glucose 105 mg/dl (70-99); Potassium 4.1 mmol/L (3.5-5.1); Sodium 140 mmol/L (135-145); eGFR 25.73
--- NOTE | 2024-11-15 08:42 | PN.DE.MGMTRT ---
Insulin Management
- -
11/15/2024: Diabetes Management follow up
Patient admitted 10/28 with c/o SOB. In the ED, noted to be markedly hypertensive with hypoxemia, CXR consistent with severe pulmonary edema. PMH: HTN, DM-II and chronic ILD s/p COVID.
Was taking Lantus 38 units @ HS and NovoLog 2-8 units AC. A1C 11.8%, Cr 2.0, eGFR 25.73
States she consistently monitors her blood sugars at home and that her FBG is usually 105 to 120 but her premeal glucose numbers are always elevated despite taking insulin before each meal. She uses SS NovoLog. Diabetes is managed by her PCP.
Patient awake, alert, oriented, sitting up in bed, offers no complaints, able to discuss diabetes care plan.
11/09 Lantus schedule was changed to AM given recurrent episodes of hypoglycemia at [facility]ador.
Received 14 units lantus in AM 11/14. Was NPO for cardiac cath. Glucose range 86 to 151.
Will continue current regimen lantus 14 units in AM with novolog 7 units breakfast and lunch, novolog to 4 units with dinner. patient only consumed 1 slice toast, 7 units novolog held.
Discussed with nurse.
Will cont to monitor and adjust AC insulin dose if necessary.
Diabetes History
- -
Type of Diabetes: 2 requiring insulin
Pre-Admission Diabetes Regimen
11/15/24
04:08
Creatinine 2.0 H
Lab Results
Hemoglobin A1c 11.8 % (4.0-5.6) H 10/29/24 03:26
Insulin Pump Settings
IP Diabetes Regimen
11/14/24 11/14/24 11/14/24
12:09 13:29 19:15
Glucose
POC Glucose 86 97 108 H
11/14/24 11/15/24 11/15/24
20:47 00:00 04:08
Glucose 105 H
POC Glucose 151 H 147 H
Meal type: Breakfast
Patient Education
--- NOTE | 2024-11-15 08:44 | W.PN.HOSP.TC ---
Today's Communication/Plan
-
Monitor hemoglobin. Monitor cardiac status post PCI.
Assessment / Plan
Assessment / Plan
Physical exam:
General: Acute on chronically ill
HEENT: Normocephalic, Atraumatic and Moist Mucous Membranes
Respiratory: Clear to Auscultation; Negative Wheezes, Rales or Rhonchi
Cardiac: Regular Rhythm and S1/S2
GI: Soft, Nontender and Nondistended
Musculoskeletal: No Clubbing, No Cyanosis and No Edema
Neuro: Awake, Alert and Oriented, no neurological deficits
Psych: Calm
Repeat cath 11/14:
1. Successful complex percutaneous coronary artery intervention with one 3.0 x 22 mm [employer]ics Franklin drug-eluting stent from distal left main into left circumflex artery/OM1 and a second 2.75 x 18 mm Medtronic Hernan drug-eluting stent from distal
left main into proximal LAD, postdilated using IVUS guidance with a 2.75 x 15 mm NC balloon at 16 rock distally in the LAD and 3.5 x 8 mm NC balloon at 20 rock in the left main and a 3.0 x 15 mm NC balloon at 18 rock in OM1 with an excellent
angiographic result.
2. Significantly elevated left ventricular end-diastolic pressure at 32 mmHg
A/P:
Impression:
Patient 74 F with Hx HTN, HLD, DM, CKD, ILD, PVD, CAD, CHF, p/w NSTEMI and Pulmonary Edema. Cath showed multi-vessel CAD. CT surgery consulted for possible CABG. Nephrology, pulmonary, cardiology, vascular surgery evaluated the patient and okay
for bypass. CT surgery reevaluated the patient and felt high risk and PCI recommended rather than CABG.
Assessment/plan:
Left main and multivessel CAD:
Status post diagnostic cardiac cath on 11/01 revealed 60% distal left main and hazy 80% ostial circumflex stenosis and moderate CAD at the origin of LAD.
On DAPT aspirin 81 mg p.o. daily, Plavix 75 mg p.o. daily; nitrates Imdur 30 mg p.o. daily; beta-blockers metoprolol succinate 25 mg p.o. daily; statins atorvastatin 80 mg p.o. every evening.
s/p high risk PCI on 11/14
Status post nitro drip and Levophed drip transiently postprocedure
Acute blood loss anemia:
Hemoglobin 7.5 this morning
She had bleeding from femoral access last night
Hemoglobin 8.1 yesterday
We will repeat another H&H today
Checking iron studies as well
Discussed with patient pros and cons of blood transfusion and I got consent for blood transfusion
If hemoglobin drops to less than 7 planning to transfuse otherwise would continue to observe and monitor. One could argue with her underlying coronary artery disease so we should aim for a higher hemoglobin level threshold but also she also has
high risk for volume overload due to her advance kidney disease and she tells me that she never had any blood transfusion prior.
Bilateral carotid stenoses, right side likely greater than 70%, left side 50 to 69%.
Seen by vascular surgeon Dr. Stahl.
Recommending coronary revascularization without prior carotid revascularization in light of high risk for peripheral vascular intervention prior to addressing coronary arteries.
Acute systolic CHF with flash pulmonary edema presentation:
Diuretics as needed-last dose Lasix 40 mg IV x1 on 11/13
Echocardiogram showed EF 40 to 45%
GDMT-on beta-blockers only for now.
Hydralazine and spironolactone on hold to avoid hypotension and worsening JESI.
JESI on Chronic kidney disease stage IV:
Nephrology consult and follow-up appreciated
Avoid nephrotoxic
On po sodium bicarb
Monitor renal function
IV bicarb drip infusion precontrast protocol on 11/14 per nephrology.
Creatinine 2 today
Acute hypoxic respiratory failure, POA:
Improved
On supplemental oxygen as needed
Hypertension:
Continue current meds
Diabetes mellitus type 2:
Insulin sliding scale
On Lantus 14 units daily in the morning.
On NovoLog 7 units in the morning, 7 units at lunchtime, and 4 units in the evening.
SHROUD LINE TIER DM on board
ILD:
Pulmonary consult appreciated and cleared her for surgery
PFTs in hospital shows mild to moderate restriction with moderate reduction in diffusion capacity
DVT prophylaxis:
SCD's
Hold off on resuming heparin with recent bleeding and worsening anemia now.
CODE STATUS:
Full code
Total time spent on today's encounter was 65 minutes which included time spent in counseling the patient/family regarding diagnosis and treatment plan as listed above, goals of care, and symptom management. Case was discussed with nursing staff,
specialists, and care coordinators/case management. All labs and imaging personally reviewed by me. Remainder the time spent in detailed review of previous records, lab data, imaging, and other medical provider documentation.
Anticipated Discharge: 24 - 48 hours
Subjective/Interval History
-
Date of Service: November 15, 2024
Noticed events of yesterday and last night. Patient denies chest pain or shortness of breath today. Afebrile
Objective Data
-
Labs:
Laboratory Results
11/14/24 11/15/24
20:45 04:08
WBC 7.8
Hgb 8.1 L 7.5 L
Hct 25.5 L 24.2 L
Plt Count 194
Sodium 140
Potassium 4.1
Chloride 110 H
Carbon Dioxide 25
BUN 40 H
Creatinine 2.0 H
Glucose 105 H
Calcium 8.0 L
Vital Signs:
Vital Signs
Temp Pulse Resp BP Pulse Ox
97.7 F 55 20 92/47 100
11/15/24 06:59 11/15/24 08:00 11/15/24 06:59 11/15/24 07:00 11/15/24 06:59
I&O
11/14/24 11/15/24 11/16/24
06:59 06:59 06:59
Intake Total 1080 / 1080 1460 / 1460
Output Total 1800 / 1800 250 / 250
Balance -720 / -720 1210 / 1210
[2024-11-15 08:56] LABS: Glucose - Point of Care 154 mg/dl (70-99)
[2024-11-15] MEDS: TOPROL XL PO (09:00)
[2024-11-15] MEDS: NOVOLOG FLEXPEN-LOW RESISTANCE SC (10:16)
[2024-11-15] MEDS: NOVOLOG FLEXPEN SC ×2 (10:16→17:04)
[2024-11-15] MEDS: LANTUS 0.14 UNITS SC (10:16)
[2024-11-15] MEDS: FEOSOL 325 MG PO (10:19)
[2024-11-15] MEDS: VITAMIN C 250 MG PO (10:19)
[2024-11-15] MEDS: LOW STRENGTH ASPIRIN 81 MG PO (10:19)
[2024-11-15] MEDS: PLAVIX 75 MG PO (10:19)
[2024-11-15] MEDS: PROTONIX 40 MG PO (10:19)
[2024-11-15] MEDS: SODIUM BICARBONATE 650 MG PO ×2 (10:20→19:51)
[2024-11-15] MEDS: ZETIA 10 MG PO (10:20)
--- NOTE | 2024-11-15 10:21 | CM ---
CM following for DC planning needs.
Met w/ patient at bedside. She feels weak and tired. She is happy that her CATH is completed.
Antic. DC plan is for home with VN thru [facility].
Will follow.
--- NOTE | 2024-11-15 10:39 | W.PN.NEPH.PH ---
Today's Communication / Plan
-
check iron
Assessment/Plan
-
74y F with PMH significant for hypertension, DM-II and chronic ILD s/p COVID who presents to ED complaining of SOB. And pulmonary edema on x-ray treated with IV diuretics with reduced ejection fraction from previous 40 to 45%
Patient has chronic kidney disease and follows with Dr. Baptiste
Renal consult for BERYL prevention
Baseline creatinine between 2 and 2.3
IMP:
Shortness of breath CHF
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
CKD stage 4 (baseline Cr� 2.5)-follows Dr Cast
DM2
CAD hx of NH, hx of stents
HTN
DM
GERD
h/o ACEI angioedema
h/o Henoch-Schonlein purpura
Gastric bypass 2010
ALISHA, mild, with nocturnal hypoxemia
PAD, SFA stent Apr 2020
JESI
s/p high risk PCI 11/14
Plan:
follow BMP
off IVF
check iron studies
follow hgb
-
-
Date of Service: November 15, 2024
CC / HPI / ROS
-
Chief Complaint:
CKD4
History of Present Illness:
CKD/Cr down at 2.0
hgb down to 7.5
Hemodynamically stable, but hypotense overnight, felt to be from beta pasha
nonoliguric
Review of Systems:
no CP/SOB
no fevers
non oliguric
Labs
-
Labs:
WBC 7.8 10^3/uL (4.8-10.8) 11/15/24 04:08
RBC 2.65 10^6/uL (4.20-5.40) L 11/15/24 04:08
Hgb 7.5 g/dL (12.0-16.0) L 11/15/24 04:08
Hct 24.2 % (37.0-47.0) L 11/15/24 04:08
Plt Count 194 10^3/uL (130-400) 11/15/24 04:08
Sodium 140 mmol/L (135-145) 11/15/24 04:08
Potassium 4.1 mmol/L (3.5-5.1) 11/15/24 04:08
Chloride 110 mmol/L (98-107) H 11/15/24 04:08
Carbon Dioxide 25 mmol/L (22-30) 11/15/24 04:08
BUN 40 mg/dl (7-17) H 11/15/24 04:08
Creatinine 2.0 mg/dL (0.6-1.0) H 11/15/24 04:08
eGFR 25.73 11/15/24 04:08
Glucose 105 mg/dl (70-99) H 11/15/24 04:08
Calcium 8.0 mg/dl (8.4-10.2) L 11/15/24 04:08
Hiq-X-Ufriibymzaf Pept 5210 pg/ml 11/04/24 05:54
Albumin 3.3 g/dl (3.5-5.0) L 11/02/24 07:11
Physical Exam
-
Vital Signs:
Vital Signs
Temp Pulse Resp BP Pulse Ox
97.7 F 55 20 92/47 100
11/15/24 06:59 11/15/24 08:00 11/15/24 06:59 11/15/24 07:00 11/15/24 06:59
Cardiovascular:: Regular rate and rhythm
Respiratory:: Bilateral: Coarse
Lung Excursion:: Normal
Abdomen:: Nontender and Soft
Bowel Sounds:: Normal
Extremity Edema:: None: Bilateral:
[2024-11-15 11:11] LABS: Iron 35 ug/dl (37-170)
[2024-11-15 11:20] LABS: Percent Saturation 12 % (20-50); Total Iron Binding Capacity 276 ug/dl (265-497)
[2024-11-15 12:05] LABS: Ferritin 34.6 ng/ml (11.1-264.0)
--- NOTE | 2024-11-15 12:59 | W.PN.CARDCBS ---
Addendum entered and electronically signed by Prashant Samuels DO 11/15/24 16:21:
I saw and examined the patient.
The Surgical Clinical Reviewer's note was reviewed and I agree with the note.
Comment:
Plan:
H/H improving, cont to monitor
Symptomatically improved off IV nitro and IV Levo. HR and bp stable.
Monitor cr ,stable at 2.
Cont DAPT, reviewed her cath with her.
She appears euvolemic. She is on Lasix 40 mg as an outpatient.
Discussed with patient and at bedside.
Original Note:
Today's Communication / Plan
-
Hgb improved on repeat
Continue aspirin, plavix
BP improved, now off levo and IV nitro
Follow creat, stable this AM at 2.0
Impression / Plan
-
PCP: Dr. Carlton
Publicist: Dr. VICKY Danielson
Impression:
Presented 10/28/2024 w/ sudden onset SOB
Acute on chronic HFpEF
Elevated troponin, possible ACS
Hyperglycemia
CAD
s/p complex PCI of distal LM into LCx/OM1 and from distal LM into proximal LAD 11/14/2024
s/p 2.5 mm Xience OM1 PCI 01/20/21
s/p Xience prox and overlapping previously placed distal OM-1 05/17/2019
s/p 2.5 mm Xience OM1 PCI 02/12/2019
PAD
s/p R common femoral endarterectomy w/ patch angioplasty and covered R iliac stent 01/2024
s/p right SFA angioplasty and stent 04/2020
h/o COVID w/ residual parenchymal scarring
HTN
HLD
DM2
CKD 4
h/o Henoch-Schonlein purpura
Glaucoma
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
h/o gastric bypass 2010
h/o angioedema on ZAY inhibitors
Aortic atherosclerosis
h/o orthostasis on Terazosin
h/o TIA 2016
Iron deficiency anemia
Echo 08/06/2020: EF 64%. Mild LVH. Normal RV. Mild MAC with mild MR. No AI or . Trace TR. PAP 29 mmHg
Echo 01/19/2021: EF 55-60%, stage I diastolic dysfunction, trace MR, trace TR, PAP 21 mmHg
Echo 10/29/2024: EF 40-45%, Stage I diastolic dysfunction, mild inferolateral and inferior hypokinesis
Cardiac cath 11/01/2024: Left main 60% distal. LAD 40% ostial. Circumflex: Hazy 80% ostial, stents in OM1 with moderate diffuse ISR, smaller daughter branch of OM1 with 70% stenosis. RCA 60 to 70% ostial stenosis
Plan:
-74-year-old woman with past medical history of CAD with prior PCI presented with dyspnea and admitted for acute heart failure. Echo here showed newly reduced left ventricular ejection fraction estimated at 45% with segmental wall motion
abnormalities. Subsequent left heart catheterization identified multivessel CAD and she was evaluated by CT surgery. Ultimately, underwent complex PCI of the left main into LCx and left main into LAD as noted above 11/14/2024.
-Overnight events reviewed. Noted to be hypertensive, so IV nitro was uptitrated to 50 and 10mg of IV labetalol was given. BP improved and IV nitro was titrated to off, however she then became hypotensive w/ BPs into the 60s systolic. Asymptomatic.
Had bleeding of R groin and manual pressure was held and bleeding stopped. She was started on IV fluids and levo. Urgent echo checked and showed EF 50-55% with no pericardial effusion. Hgb noted to be down trending, down to 8.1.
-Continues to feel well this AM. No chest pain, SOB, dizziness, or lightheadedness.
-BP improved, stable currently off levo and nitro.
-Hgb down to 7.5 in AM 11/15. Up to 8.8 on repeat this afternoon. Continue to follow.
-Continues on aspirin and Plavix.
-Nephrology following given CKD 4. Creat stable at 2.0 11/15. Continue to follow.
-Volume status appears stable, follow closely. Has received IV lasix intermittently this admission, most recently 11/13. Weight stable at 130 lbs.
-Continue statin, zetia.
HPI: Steph is a 74 year old female with PMH of CAD, PAD, HFpEF, HTN, HLD, DM2, CKD, iron deficiency anemia, and glaucoma. Presented to [facility] ER with sudden onset shortness of breath. She was seen in the cardiology office on 10/22/2024 for evaluation
of intermittent chest discomfort which came on at rest following dinner. She had no exertional symptoms. She was started on pantoprazole at the time and reported resolution of her chest pain with this. Last night, after dinner she reported sudden
onset shortness of breath while sitting watching TV. EMS was called and she was started on BiPAP. On arrival to ER, she was noted to be significantly hypertensive and presented on IV nitroglycerin. Chest x-ray consistent with severe pulmonary
edema. She was started on IV Lasix and symptomatically has been improving. CT of chest negative for PE. Cardiology consulted for evaluation given elevated troponin and acute heart failure exacerbation. She reports she has no complaints. Denies
any chest pain and breathing is stable on high flow O2.
Progress Note - Publicist
Subjective
Date of Service: November 15, 2024
Feeling well. No chest pain, palpitations, SOB.
Objective
Labs:
11/15/24 04:08
Labs
Hgb 7.5 g/dL (12.0-16.0) L 11/15/24 04:08
Hct 24.2 % (37.0-47.0) L 11/15/24 04:08
Plt Count 194 10^3/uL (130-400) 11/15/24 04:08
PT 14.0 Sec (11.4-14.6) 11/02/24 07:11
INR 1.03 11/02/24 07:11
APTT Cancelled 11/07/24 06:00
Sodium 140 mmol/L (135-145) 11/15/24 04:08
Potassium 4.1 mmol/L (3.5-5.1) 11/15/24 04:08
BUN 40 mg/dl (7-17) H 11/15/24 04:08
Creatinine 2.0 mg/dL (0.6-1.0) H 11/15/24 04:08
Glucose 105 mg/dl (70-99) H 11/15/24 04:08
Vital Signs and I&O:
Vital Signs
Temp Pulse Resp BP Pulse Ox
98.2 F 59 20 120/50 97
11/15/24 11:36 11/15/24 12:00 11/15/24 11:36 11/15/24 11:37 11/15/24 11:36
Vital Signs
Temp Pulse Resp BP Pulse Ox
98.2 F 59 20 120/50 97
11/15/24 11:36 11/15/24 12:00 11/15/24 11:36 11/15/24 11:37 11/15/24 11:36
Intake & Output
11/13/24 11/14/24 11/15/24 11/16/24
06:59 06:59 06:59 06:59
Intake Total 840 / 840 1080 / 1080 1460 / 1460
Output Total 1800 / 1800 250 / 250
Balance 840 / 840 -720 / -720 1210 / 1210
Physical Exam
Physical Exam
GEN: No distress, awake, alert, oriented x3
HEENT: supple, anicteric, mmm
LUNGS: few scattered crackles, no wheezes
CV: Reg, S1/S2, no murmur
EXT: No cyanosis, clubbing, edema
NEURO: Gross non-focal
SKIN: Warm, pink, dry. No rash
[2024-11-15 13:11] LABS: Hematocrit 27.6 % (37.0-47.0); Hemoglobin 8.8 g/dL (12.0-16.0)
[2024-11-15 13:23] LABS: Glucose - Point of Care 160 mg/dl (70-99)
[2024-11-15] MEDS: IMDUR (EXTENDED RELEASE) PO (13:24)
[2024-11-15] MEDS: NOVOLOG FLEXPEN-LOW RESISTANCE 1 UNITS SC (13:35)
[2024-11-15 16:45] LABS: Glucose - Point of Care 232 mg/dl (70-99)
[2024-11-15] MEDS: SANTYL OINTMENT 1 APPLIC TOPICAL (17:02)
[2024-11-15] MEDS: FERRLECIT 110 MG IV (17:04)
[2024-11-15] MEDS: LIPITOR 80 MG PO (18:21)
[2024-11-15] MEDS: NOVOLOG FLEXPEN-LOW RESISTANCE 2 UNITS SC (18:22)
[2024-11-15] MEDS: NOVOLOG FLEXPEN 2 UNITS SC (18:23)
--- NOTE | 2024-11-15 19:41 | PTCARENOTE ---
Pt OOB to chair with assistance. Right groin site ecchymotic, dressing changed, no sign of bleeding or hematoma. Pt denied any discomfort. Pt has a poor appetite and eats less than half of her meals, mealtime insulin not given , correction insulin
only given.
[2024-11-15] MEDS: LYRICA 300 MG PO (21:08)
[2024-11-15 22:04] LABS: Glucose - Point of Care 122 mg/dl (70-99)
--- NOTE | 2024-11-15 22:16 | PTCARENOTE ---
Pt received this evening with no c/o of pain or sob. Assisted oob to the bathroom, gait steady. Left groin site dressing dry and intact with no hematoma or tenderness.
[2024-11-16] VITALS (7 sets, daily range): BP systolic 110–148; BP diastolic 47–73; BMI 26.3
--- NOTE | 2024-11-16 00:23 | PTCARENOTE ---
Rec'd pt at change of shift. Pt AAO*3, VSS, and SR/sinus alfredito on TELE monitor. R groin site CDI. Pt denies any pain or discomfort. Pt resting iwth call duran in reach and plan of care ongoing. See MAR and flowchart for full pt care and
assessment.
[2024-11-16 03:13] LABS: Hematocrit 24.8 % (37.0-47.0); Hemoglobin 7.9 g/dL (12.0-16.0); Mean Corp Hgb Conc. 31.9 g/dL (33.0-37.0); Mean Corpuscular Hgb 28.8 pg (27.0-31.0); Mean Corpuscular Volume 90.5 fL (81.0-99.0); Mean Platelet Volume 13.5 fL (7.4-10.4); Platelet Count 177 10^3/uL (130-400); Red Blood Cell Count 2.74 10^6/uL (4.20-5.40); Red Cell Dist. Width 16.8 % (11.5-14.5); White Blood Cell Count 6.3 10^3/uL (4.8-10.8)
[2024-11-16 03:34] LABS: Blood Urea Nitrogen 40 mg/dl (7-17); Calcium 8.3 mg/dl (8.4-10.2); Carbon Dioxide 27 mmol/L (22-30); Chloride 109 mmol/L (98-107); Estimated Creatinine Clearance 18 ml/min; Glucose 52 mg/dl (70-99); Potassium 4.3 mmol/L (3.5-5.1); Sodium 140 mmol/L (135-145); eGFR 21.76
[2024-11-16 04:05] LABS: Glucose - Point of Care 126 mg/dl (70-99)
[2024-11-16 06:25] LABS: Glucose - Point of Care 80 mg/dl (70-99)
--- NOTE | 2024-11-16 08:42 | W.PN.CARDCBS ---
Addendum entered and electronically signed by Monse Blackmon DO 11/16/24 09:59:
I saw and examined the patient.
The Office Machine Inspector's note was reviewed and I agree with the note.
Comment: Patient was seen and examined. Overall she is feeling stronger and ambulated around the unit with PT yesterday. Denies dizziness or lightheadedness. No shortness of breath. No chest pain. Groin site stable without further bleeding.
GEN: NAD. Room air
HEENT: supple, anicteric, mmm
LUNGS: Bronchovesicular breath sounds clear
CV: Reg, S1/S2, no murmur, rub or gallop
ABD: soft, BS+, NT/ND
EXT: No edema, clubbing or cyanosis; right groin incision clean dry intact, no bruit or hematoma
NEURO: Gross non-focal
Plan:
74-year-old woman with past medical history of CAD with prior PCI presenting with dyspnea and admitted for acute heart failure. Echo here showed newly reduced left ventricular ejection fraction estimated at 45% with segmental wall motion
abnormalities. Subsequent left heart catheterization identified multivessel CAD s/p complex MATT distal LM into LCx/OM1 3.0 x 22 mm Medtronics [place] drug-eluting stent and from distal LM into proximal LAD 2.75 x 18 mm Medtronic [place] drug-eluting
stent 11/14/2024
-Ruled in for NSTEMI with peak trop 0.705.
-Post cath on 11/14/2024 had bleeding of R groin and manual pressure was held and bleeding stopped. Hemoglobin 7.9, was as low as 7.5 within last 48 hours
-Urgent echo checked 11/14/24 due to hypotension requiring brief pressors and showed EF 50-55% with no pericardial effusion. Hgb noted to be down trending, down to 8.1.
- Blood pressures are stable but borderline. Will discharge only on Toprol-XL 25 mg daily. Would not resume Aldactone, hydralazine and Imdur at this time. Patient has angio-edema from ZAY-I
-Hgb down to 7.5 in AM 11/15. Up to 8.8 on repeat this afternoon. Hemoglobin initially 11.8; monitor outpatient CBC
- Continue uninterrupted dual antiplatelet therapy
-Continue Atorvastatin 80 mg daily/Zetia 10 mg daily. TC 112, HDL 46, LDL 53, triglycerides 67.
-Volume status appears stable, follow closely. Will hold addition of Lasix at this time and reassess as an outpatient
Acute on chronic renal sufficiency likely contrast nephropathy with underlying renal insufficiency following CTA of the neck 11/04/2024
- Creatinine relatively stable post procedure, 2.3
- Monitor outpatient basic metabolic profile
- Appreciate nephrology input; outpatient nephrology follow-up
Possible discharge home today if okay with nephrology
Cardiac rehab
Close outpatient cardiac follow-up to be arranged
Original Note:
Today's Communication / Plan
-
Resume Toprol
Would not resume Aldactone, Hydralazine and Imdur at time of discharge
Continue ASA, Plavix, Statin, Zetia
Await nephro input on dose of Lasix at d/c. Thinking 20 mg
BMP and CBC in 5-7 days ( Order printed out and placed on chart)
Outpatient cardiology follow-up has been arranged
Impression / Plan
-
PCP: Dr. Carlton
Powerplant Operator: Dr. VICKY Danielson
Impression:
Presented 10/28/2024 w/ sudden onset SOB
Acute on chronic HFpEF
Elevated troponin, ruled in for NSTEMI with peak trop 0.705
CAD
s/p complex MATT distal LM into LCx/OM1 3.0 x 22 mm [employer]tronics [place] drug-eluting stent and from distal LM into proximal LAD 2.75 x 18 mm Medtronic [place] drug-eluting stent 11/14/2024
s/p 2.5 mm Xience OM1 PCI 01/20/21
s/p Xience prox and overlapping previously placed distal OM-1 05/17/2019
s/p 2.5 mm Xience OM1 PCI 02/12/2019
Hyperglycemia
PAD
s/p R common femoral endarterectomy w/ patch angioplasty and covered R iliac stent 01/2024
s/p right SFA angioplasty and stent 04/2020
h/o COVID 19 w/ residual parenchymal scarring
HTN
HLD
DM2
CKD 4
h/o Henoch-Schonlein purpura
Glaucoma
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
h/o gastric bypass 2010
h/o angioedema on ZAY inhibitors
Aortic atherosclerosis
h/o orthostasis on Terazosin
h/o TIA 2016
Iron deficiency anemia
Echo 08/06/2020: EF 64%. Mild LVH. Normal RV. Mild MAC with mild MR. No AI or . Trace TR. PAP 29 mmHg
Echo 01/19/2021: EF 55-60%, stage I diastolic dysfunction, trace MR, trace TR, PAP 21 mmHg
Echo 10/29/2024: EF 40-45%, Stage I diastolic dysfunction, mild inferolateral and inferior hypokinesis
Echo 11/14/2024: EF 50 to 55%. No significant valvular disease. No pericardial effusion.
Cardiac cath 11/01/2024: Left main 60% distal. LAD 40% ostial. Circumflex: Hazy 80% ostial, stents in OM1 with moderate diffuse ISR, smaller daughter branch of OM1 with 70% stenosis. RCA 60 to 70% ostial stenosis
Cardiac cath 11/14/2024: Successful complex percutaneous coronary artery intervention with one 3.0 x 22 mm Medtronics [place] drug-eluting stent from distal left main into left circumflex artery/OM1 and a second 2.75 x 18 mm Medtronic [place] drug-eluting
stent from distal left main into proximal LAD
Plan:
-74-year-old woman with past medical history of CAD with prior PCI presented with dyspnea and admitted for acute heart failure 10/28/2024. Echo here showed newly reduced left ventricular ejection fraction estimated at 45% with segmental wall motion
abnormalities.
-Ruled in for NSTEMI with peak trop 0.705.
-Subsequent left heart catheterization identified multivessel CAD and she was evaluated by CT surgery. Ultimately, underwent complex PCI of the left main into LCx and left main into LAD as noted above 11/14/2024.
-Post cath on 11/14/2024 had bleeding of R groin and manual pressure was held and bleeding stopped. Hemoglobin 7.9, was as low as 7.5 within last 48 hours
-Urgent echo checked 11/14/24 due to hypotension requiring brief pressors and showed EF 50-55% with no pericardial effusion. Hgb noted to be down trending, down to 8.1.
-Continues to feel well this AM. No chest pain, SOB, dizziness, or lightheadedness.
-BP improved off pressures. Both Toprol, Imdur, hydralazine and Aldactone held 11/15. Add back low-dose Toprol. Continue to hold other antihypertensive agents for now. If BP allows consider adding low dose Aldactone. Patient has angio-edema from
ZAY-I
-Hgb down to 7.5 in AM 11/15. Up to 8.8 on repeat this afternoon. Continue to follow.
-Continue GDMT with Toprol, Statin, aspirin and Plavix. If blood pressure and creat allow can consider adding back spironolactone which patient was on as outpatient. Unable to utilize ZAY/ARB secondary to history of angioedema
-Nephrology following given CKD 4, baseline creatinine 2-2.3. Creat 2.3 11/16. Continue to follow.
-Volume status appears stable, follow closely. Has received IV Lasix intermittently this admission, most recently 11/13. Weight stable at 134 lbs. Consider adding back low-dose Lasix 20 mg. Await nephrology input
-TC 112, HDL 46, LDL 53, triglycerides 67. Continue high-dose atorvastatin and Zetia. Hemoglobin A1c 11.8 on admission. Patient has been seen by dietitian chief
-Outpatient cardiology follow-up has been arranged and lab slip for CBC and basic metabolic panel placed on chart
HPI: Steph is a 74 year old female with PMH of CAD, PAD, HFpEF, HTN, HLD, DM2, CKD, iron deficiency anemia, and glaucoma. Presented to [facility] ER with sudden onset shortness of breath. She was seen in the cardiology office on 10/22/2024 for evaluation
of intermittent chest discomfort which came on at rest following dinner. She had no exertional symptoms. She was started on pantoprazole at the time and reported resolution of her chest pain with this. Last night, after dinner she reported sudden
onset shortness of breath while sitting watching TV. EMS was called and she was started on BiPAP. On arrival to ER, she was noted to be significantly hypertensive and presented on IV nitroglycerin. Chest x-ray consistent with severe pulmonary
edema. She was started on IV Lasix and symptomatically has been improving. CT of chest negative for PE. Cardiology consulted for evaluation given elevated troponin and acute heart failure exacerbation. She reports she has no complaints. Denies
any chest pain and breathing is stable on high flow O2.
Progress Note - Powerplant Operator
Subjective
Date of Service: November 16, 2024
Patient seen and examined. Overall patient reports she is feeling well. She was able to ambulate around the room and halls yesterday with assistance of PT using ambulating walker. She is eager to go home
Objective
Labs:
11/16/24 02:42
11/16/24 02:42
Labs
Hgb 7.9 g/dL (12.0-16.0) L 11/16/24 02:42
Hct 24.8 % (37.0-47.0) L 11/16/24 02:42
Plt Count 177 10^3/uL (130-400) 11/16/24 02:42
PT 14.0 Sec (11.4-14.6) 11/02/24 07:11
INR 1.03 11/02/24 07:11
APTT Cancelled 11/07/24 06:00
Sodium 140 mmol/L (135-145) 11/16/24 02:42
Potassium 4.3 mmol/L (3.5-5.1) 11/16/24 02:42
BUN 40 mg/dl (7-17) H 11/16/24 02:42
Creatinine 2.3 mg/dL (0.6-1.0) H 11/16/24 02:42
Glucose 52 mg/dl (70-99) L* 11/16/24 02:42
Vital Signs and I&O:
Vital Signs
Temp Pulse Resp BP Pulse Ox
97.7 F 57 20 119/49 97
11/16/24 06:49 11/16/24 06:49 11/16/24 06:49 11/16/24 06:49 11/16/24 06:49
Vital Signs
Temp Pulse Resp BP Pulse Ox
97.7 F 57 20 119/49 97
11/16/24 06:49 11/16/24 06:49 11/16/24 06:49 11/16/24 06:49 11/16/24 06:49
Intake & Output
11/14/24 11/15/24 11/16/24 11/17/24
06:59 06:59 06:59 06:59
Intake Total 1080 / 1080 1460 / 1460 720 / 720
Output Total 1800 / 1800 250 / 250 1000 / 1000
Balance -720 / -720 1210 / 1210 -280 / -280
Physical Exam
Physical Exam
GEN: No distress, awake, Ox3, sitting in chair
HEENT: supple, anicteric, mmm
LUNGS: Crackles at left base otherwise CTA, no wheezes/rales
CV: Reg, S1/S2, no murmur, rub or gallop
ABD: soft, BS+, NT/ND
EXT: No edema, clubbing or cyanosis; right groin incision clean dry intact, no bruit or hematoma
NEURO: Gross non-focal
SKIN: No rash, warm, dry, pink
[2024-11-16 09:17] LABS: Glucose - Point of Care 239 mg/dl (70-99)
[2024-11-16] MEDS: LANTUS 0.14 UNITS SC (09:25)
[2024-11-16] MEDS: FEOSOL 325 MG PO (09:27)
[2024-11-16] MEDS: VITAMIN C 250 MG PO (09:27)
--- NOTE | 2024-11-16 09:27 | W.PN.HOSP.TC ---
Today's Communication/Plan
-
Discharge planning today
Assessment / Plan
Assessment / Plan
Physical exam:
General: Acute on chronically ill
HEENT: Normocephalic, Atraumatic and Moist Mucous Membranes
Respiratory: Clear to Auscultation; Negative Wheezes, Rales or Rhonchi
Cardiac: Regular Rhythm and S1/S2
GI: Soft, Nontender and Nondistended
Musculoskeletal: No Clubbing, No Cyanosis and No Edema
Neuro: Awake, Alert and Oriented, no neurological deficits
Psych: Calm
Repeat cath 11/14:
1. Successful complex percutaneous coronary artery intervention with one 3.0 x 22 mm Medtronics [place] drug-eluting stent from distal left main into left circumflex artery/OM1 and a second 2.75 x 18 mm Medtronic [place] drug-eluting stent from distal
left main into proximal LAD, postdilated using IVUS guidance with a 2.75 x 15 mm NC balloon at 16 rock distally in the LAD and 3.5 x 8 mm NC balloon at 20 rock in the left main and a 3.0 x 15 mm NC balloon at 18 rock in OM1 with an excellent
angiographic result.
2. Significantly elevated left ventricular end-diastolic pressure at 32 mmHg
A/P:
Impression:
Patient 74 F with Hx HTN, HLD, DM, CKD, ILD, PVD, CAD, CHF, p/w NSTEMI and Pulmonary Edema. Cath showed multi-vessel CAD. CT surgery consulted for possible CABG. Nephrology, pulmonary, cardiology, vascular surgery evaluated the patient and okay
for bypass. CT surgery reevaluated the patient and felt high risk and PCI recommended rather than CABG.
Assessment/plan:
Left main and multivessel CAD:
Status post diagnostic cardiac cath on 11/01 revealed 60% distal left main and hazy 80% ostial circumflex stenosis and moderate CAD at the origin of LAD.
On DAPT aspirin 81 mg p.o. daily, Plavix 75 mg p.o. daily; beta-blockers metoprolol succinate 25 mg p.o. daily; statins atorvastatin 80 mg p.o. every evening.
s/p high risk PCI on 11/14
Status post nitro drip and Levophed drip transiently postprocedure
Discussed with cardiology today and cleared for discharge
Acute blood loss anemia:
Hemoglobin 7.9 this morning
Received IV iron and continue oral iron upon discharge
Stable for discharge
Bilateral carotid stenoses, right side likely greater than 70%, left side 50 to 69%.
Seen by vascular surgeon Dr. Stahl.
Recommending coronary revascularization without prior carotid revascularization in light of high risk for peripheral vascular intervention prior to addressing coronary arteries.
Acute systolic CHF with flash pulmonary edema presentation:
Diuretics as needed-last dose Lasix 40 mg IV x1 on 11/13--> reevaluate as outpatient when to restart diuretics with cardiology
Echocardiogram showed EF 40 to 45%
GDMT-on beta-blockers only for now.
Hydralazine and nitrates and spironolactone on hold to avoid hypotension and worsening JESI-->reevaluate as outpatient when to restart diuretics with cardiology
JESI on Chronic kidney disease stage IV:
Discussed with nephrology today and she is cleared for discharge.
Nephrology consult and follow-up appreciated
Avoid nephrotoxic
On po sodium bicarb
Monitor renal function
IV bicarb drip infusion precontrast protocol on 11/14 per nephrology.
Creatinine 2.3 today
Acute hypoxic respiratory failure, POA:
Improved
On supplemental oxygen as needed
Hypertension/Hypotension:
Continue current meds
Diabetes mellitus type 2:
Insulin sliding scale
On Lantus 14 units daily in the morning.
On NovoLog 7 units in the morning, 7 units at lunchtime, and 4 units in the evening.
DIGITAL IMAGING SPECIALIST DM on board and she will adjust medications upon discharge list today
ILD:
Pulmonary consult appreciated and cleared her for surgery
PFTs in hospital shows mild to moderate restriction with moderate reduction in diffusion capacity
DVT prophylaxis:
SCD's
Hold off on resuming heparin with recent bleeding and worsening anemia now.
CODE STATUS:
Full code
Anticipated Discharge: Today
Subjective/Interval History
-
Date of Service: November 16, 2024
No new complaints. No chest pain or shortness of breath
Objective Data
-
Labs:
Laboratory Results
11/16/24
02:42
WBC 6.3
Hgb 7.9 L
Hct 24.8 L
Plt Count 177
Sodium 140
Potassium 4.3
Chloride 109 H
Carbon Dioxide 27
BUN 40 H
Creatinine 2.3 H
Glucose 52 L*
Calcium 8.3 L
Vital Signs:
Vital Signs
Temp Pulse Resp BP Pulse Ox
97.7 F 57 20 119/49 97
11/16/24 06:49 11/16/24 06:49 11/16/24 06:49 11/16/24 06:49 11/16/24 06:49
I&O
11/15/24 11/16/24 11/17/24
06:59 06:59 06:59
Intake Total 1460 / 1460 720 / 720
Output Total 250 / 250 1000 / 1000
Balance 1210 / 1210 -280 / -280
[2024-11-16] MEDS: PROTONIX 40 MG PO (09:28)
[2024-11-16] MEDS: IMDUR (EXTENDED RELEASE) PO (09:28)
[2024-11-16] MEDS: PLAVIX 75 MG PO (09:28)
[2024-11-16] MEDS: LOW STRENGTH ASPIRIN 81 MG PO (09:28)
[2024-11-16] MEDS: ZETIA 10 MG PO (09:28)
[2024-11-16] MEDS: SODIUM BICARBONATE 650 MG PO (09:29)
[2024-11-16] MEDS: TOPROL XL 25 MG PO (09:31)
[2024-11-16] MEDS: NOVOLOG FLEXPEN SC (09:41)
[2024-11-16] MEDS: NOVOLOG FLEXPEN-LOW RESISTANCE SC (09:42)
--- NOTE | 2024-11-16 10:06 | PN.DE.MGMTRT ---
Insulin Management
- -
11/16/2024: Diabetes Management follow up
Patient admitted 10/28 with c/o SOB. In the ED, noted to be markedly hypertensive with hypoxemia, CXR consistent with severe pulmonary edema. PMH: HTN, DM-II and chronic ILD s/p COVID.
Was taking Lantus 38 units @ HS and NovoLog 2-8 units AC. A1C 11.8%, Cr 2.0, eGFR 25.73
States she consistently monitors her blood sugars at home and that her FBG is usually 105 to 120 but her premeal glucose numbers are always elevated despite taking insulin before each meal. She uses SS NovoLog. Diabetes is managed by her PCP.
Patient awake, alert, oriented, sitting up in chair, offers no complaints, able to discuss diabetes care plan.
11/09 Lantus schedule was changed to AM given recurrent episodes of hypoglycemia at amador.
Received 4 units of NovoLog at dinner time and 14 units Lantus @ HS, noted for an episode of hypoglycemia of 52 @ 3AM.
Nursing states that pt has not been eating much ~30-40% of her meals.
Will continue Lantus 14 units in AM and NovoLog 7 units breakfast and lunch, and STOP the dinner time NovoLog dose.
D/C Meds: Lantus 14 units in the morning, NovoLog 5-7 units with breakfast and lunch depending on how much patient eats.No insulin coverage at dinner time.
Discussed with pt and nurse in detail. Will cont to monitor and adjust AC insulin dose if necessary.
Diabetes History
- -
Type of Diabetes: 2 requiring insulin
Pre-Admission Diabetes Regimen
11/16/24
02:42
Creatinine 2.3 H
Lab Results
Hemoglobin A1c 11.8 % (4.0-5.6) H 10/29/24 03:26
Insulin Pump Settings
IP Diabetes Regimen
11/15/24 11/15/24 11/15/24
13:22 16:44 22:02
Glucose
POC Glucose 160 H 232 H 122 H
11/16/24 11/16/24 11/16/24
02:42 04:03 06:23
Glucose 52 L*
POC Glucose 126 H 80
11/16/24
09:16
Glucose
POC Glucose 239 H
Meal type: Breakfast
Meal type: Dinner
Meal type: Lunch
Meal type: Breakfast
Amount consumed: 70%
Amount consumed: 45%
Amount consumed: 30%
Amount consumed: 30%
Patient Education
[2024-11-16 11:30] LABS: Glucose - Point of Care 158 mg/dl (70-99)
[2024-11-16] MEDS: SANTYL OINTMENT 1 APPLIC TOPICAL (12:04)
--- NOTE | 2024-11-16 12:13 | CM ---
CM following for DC planning needs.
Met w/ patient at bedside. She feels well and is hopeful for DC today.
Plan is for home w/ [facility].
--- NOTE | 2024-11-16 12:35 | W.PN.NEPH.PH ---
Today's Communication / Plan
-
ok for d/c
Assessment/Plan
-
74y F with PMH significant for hypertension, DM-II and chronic ILD s/p COVID who presents to ED complaining of SOB. And pulmonary edema on x-ray treated with IV diuretics with reduced ejection fraction from previous 40 to 45%
Patient has chronic kidney disease and follows with Dr. Baptiste
Renal consult for BERYL prevention
Baseline creatinine between 2 and 2.3
IMP:
Shortness of breath CHF
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
CKD stage 4 (baseline Cr� 2.5)-follows Dr Cast
DM2
CAD hx of CA, hx of stents
HTN
DM
GERD
h/o ACEI angioedema
h/o Henoch-Schonlein purpura
Gastric bypass 2010
ALISHA, mild, with nocturnal hypoxemia
PAD, SFA stent Apr 2020
JESI
s/p high risk PCI 11/14
Plan:
stable renal function cr 2.3 post contrast 11/14
resp status stable too, ok to resume lasix prn
anti HTN meds per cards
follow h/h out pt too-on IV fe course
no objection to d/c, BMP next week
f/u Dr Lim
-
-
Date of Service: November 16, 2024
CC / HPI / ROS
-
Chief Complaint:
CKD4
History of Present Illness:
CKD/Cr 2.3
hgb 7.9-stable
Hemodynamically stable
nonoliguric
Review of Systems:
no CP/SOB
no fevers
non oliguric
Labs
-
Labs:
WBC 6.3 10^3/uL (4.8-10.8) 11/16/24 02:42
RBC 2.74 10^6/uL (4.20-5.40) L 11/16/24 02:42
Hgb 7.9 g/dL (12.0-16.0) L 11/16/24 02:42
Hct 24.8 % (37.0-47.0) L 11/16/24 02:42
Plt Count 177 10^3/uL (130-400) 11/16/24 02:42
Sodium 140 mmol/L (135-145) 11/16/24 02:42
Potassium 4.3 mmol/L (3.5-5.1) 11/16/24 02:42
Chloride 109 mmol/L (98-107) H 11/16/24 02:42
Carbon Dioxide 27 mmol/L (22-30) 11/16/24 02:42
BUN 40 mg/dl (7-17) H 11/16/24 02:42
Creatinine 2.3 mg/dL (0.6-1.0) H 11/16/24 02:42
eGFR 21.76 11/16/24 02:42
Glucose 52 mg/dl (70-99) L* 11/16/24 02:42
Calcium 8.3 mg/dl (8.4-10.2) L 11/16/24 02:42
Wra-I-Nbzbjurwpxx Pept 5210 pg/ml 11/04/24 05:54
Albumin 3.3 g/dl (3.5-5.0) L 11/02/24 07:11
Physical Exam
-
Vital Signs:
Vital Signs
Temp Pulse Resp BP Pulse Ox
98.2 F 59 14 123/73 98
11/16/24 11:26 11/16/24 11:29 11/16/24 11:26 11/16/24 11:29 11/16/24 11:36
Cardiovascular:: Regular rate and rhythm
Respiratory:: Bilateral: Rales (chronic left >right)
Lung Excursion:: Normal
Abdomen:: Nontender and Soft
Bowel Sounds:: Normal
Extremity Edema:: None: Bilateral:
Cortez Catheter: No
--- NOTE | 2024-11-16 13:26 | VNURNOTE ---
Home Health Liaison spoke with patient to discuss [facility] nurse/therapy, visits, schedule and homebound status. Patient is agreeable and understands that visits at home will be 2-3 x per week to assess and teach medical management. She is familiar
with [facility] and has has us in the past. Patient is aware that [facility] will contact them for start of care in 1-2 days after discharge from . She confirms she has a scale at home.
[facility] referral accepted in [facility].
--- NOTE | 2024-11-16 14:09 | PTCARENOTE ---
Pt seen by Federica and Tarsha, Carol Sánchez NP and Merry Morgan NP. Telemetry and IV devices removed. Discharge instructions reviewed with pt regarding medications and their possible side effects, wound care,lab tests, CHF guidelines,
reporting cares and concerns and follow up appt's. Excellent understanding verbalized. Pt escorted out via wheelchair and discharged to home.
== END 2024-11-16 14:16 | disposition home health service (06) | DRG 321 ==
LOC: IVU 02:11
PROVIDERS: General Practice; Internal Medicine Cardiovascular Disease; Internal Medicine Interventional Cardiology; Physician Assistant Medical; Specialist; ADMITTING PHYSICIAN Hospitalist; ATTENDING PHYSICIAN Hospitalist; CONSULT PHYSICIAN Internal Medicine Critical Care Medicine; CONSULT PHYSICIAN Orthopaedic Surgery Foot and Ankle Surgery; CONSULT PHYSICIAN Surgery Vascular Surgery; EMERGENCY PHYSICIAN Emergency Medicine; FAMILY PHYSICIAN Internal Medicine; OTHER PHYSICIAN Internal Medicine Cardiovascular Disease; OTHER PHYSICIAN Thoracic Surgery (Cardiothoracic Vascular Surgery)
PROC: 5A0935A Assistance with Respiratory Ventilation, Less than 24 Consecutive Hours, High Flow/Velocity Cannula (ICD-10-PCS; 2024-10-29)
PROC: 5A09357 Assistance with Respiratory Ventilation, Less than 24 Consecutive Hours, Continuous Positive Airway Pressure (ICD-10-PCS; 2024-10-29)
PROC: 4A023N7 Measurement of Cardiac Sampling and Pressure, Left Heart, Percutaneous Approach (ICD-10-PCS; 2024-11-01)
PROC: B2111ZZ Fluoroscopy of Multiple Coronary Arteries using Low Osmolar Contrast (ICD-10-PCS; 2024-11-01)
PROC: 027135Z Dilation of Coronary Artery, Two Arteries with Two Drug-eluting Intraluminal Devices, Percutaneous Approach (ICD-10-PCS; 2024-11-14)
DX: I21.4 Non-ST elevation (NSTEMI) myocardial infarction (principal); I50.23 Acute on chronic systolic (congestive) heart failure; J96.01 Acute respiratory failure with hypoxia; T82.855A Stenosis of coronary artery stent, initial encounter; I13.0 Hypertensive heart and chronic kidney disease with heart failure and stage 1 through stage 4 chronic kidney disease, or unspecified chronic kidney disease; N18.4 Chronic kidney disease, stage 4 (severe); I16.1 Hypertensive emergency; N17.9 Acute kidney failure, unspecified; D62 Acute posthemorrhagic anemia; I25.10 Atherosclerotic heart disease of native coronary artery without angina pectoris; E11.22 Type 2 diabetes mellitus with diabetic chronic kidney disease; E11.40 Type 2 diabetes mellitus with diabetic neuropathy, unspecified; E11.51 Type 2 diabetes mellitus with diabetic peripheral angiopathy without gangrene; D50.9 Iron deficiency anemia, unspecified; J84.10 Pulmonary fibrosis, unspecified; K21.9 Gastro-esophageal reflux disease without esophagitis; R05.3 Chronic cough; E78.00 Pure hypercholesterolemia, unspecified; I70.0 Atherosclerosis of aorta; E11.65 Type 2 diabetes mellitus with hyperglycemia; I65.22 Occlusion and stenosis of left carotid artery; R91.1 Solitary pulmonary nodule; G47.33 Obstructive sleep apnea (adult) (pediatric); H40.9 Unspecified glaucoma; N14.11 Contrast-induced nephropathy; T50.8X5A Adverse effect of diagnostic agents, initial encounter; Y92.239 Unspecified place in hospital as the place of occurrence of the external cause; L89.312 Pressure ulcer of right buttock, stage 2; Y84.0 Cardiac catheterization as the cause of abnormal reaction of the patient, or of later complication, without mention of misadventure at the time of the procedure; Y92.9 Unspecified place or not applicable; Z96.642 Presence of left artificial hip joint; Z86.73 Personal history of transient ischemic attack (TIA), and cerebral infarction without residual deficits; Z95.5 Presence of coronary angioplasty implant and graft; Z87.01 Personal history of pneumonia (recurrent); Z86.16 Personal history of COVID-19; Z79.4 Long term (current) use of insulin; Z82.49 Family history of ischemic heart disease and other diseases of the circulatory system; Z83.3 Family history of diabetes mellitus; Z79.02 Long term (current) use of antithrombotics/antiplatelets; Z79.82 Long term (current) use of aspirin; Z79.84 Long term (current) use of oral hypoglycemic drugs; Z98.84 Bariatric surgery status; Z88.2 Allergy status to sulfonamides; Z88.8 Allergy status to other drugs, medicaments and biological substances; Z95.820 Peripheral vascular angioplasty status with implants and grafts; I25.2 Old myocardial infarction; Z86.718 Personal history of other venous thrombosis and embolism
CPT/HCPCS: 93308; 94727; 94729; 36600; 70496; 70498; 71045; 71275; 80048; 80053; 80061; 82248; 82728; 82805; 82947; 82962; 83036; 83540; 83550; 83735; 83880; 84439; 84443; 84484; 85014; 85018; 85025; 85027; 85347; 85610; 85730; 86850; 86900; 86901; 92978; 93005; 93306; 93321; 93325; 93458; 93880; 93971; 94060; 94640; 94660; 96372; 96374; 96375; 97163; 97530; 99152; 99153; 99291; C1725; C1753; C1769; C1874; C1894; C9600; J2916; Q9967

== ENCOUNTER 2024-11-26 05:29 | Inpatient (IN) | payer MEDICARE, OTHER, SELFPAY ==
[2024-11-26] VITALS (15 sets, daily range): BP systolic 107–186; BP diastolic 48–85; PULSE 63; O2SAT 99; BMI 26.3; BMI 25.2
--- NOTE | 2024-11-26 03:09 | ED.GENMED ---
History of Present Illness
General
Chief Complaint: Breathing Problem
Source: patient
Exam Limitations: none
Time Seen by Provider: 11/26/24 03:08
Nursing documentation reviewed up to this point in time: agreed with
History of Present Illness
History of Present Illness:
74-year-old female with past medical history of COPD, interstitial lung disease, coronary artery disease, hypertension, CHF, hyperlipidemia presents emergency department today with concerns of shortness of breath. Patient reports that started a few
hours ago and patient reports that she did not feel sleepy because the symptoms. Patient reports that when she would lay down on her back, the symptoms got a lot worse. She denies chest pain. Of note, patient also notes increased swelling in her
lower extremities the past few days and she does note a weight gain of 3 pounds today. Patient follows with Dr. Danielson for cardiology and Dr. Avila for pulmonology. She does not wear any oxygen at baseline. She called EMS and was found to be 85%
on room air. She was placed on a nonrebreather and given an albuterol treatment and has improved, she is currently satting 100% on 4 L. Of note, she was seen last month for similar symptoms and was found to be in acute CHF exacerbation.
Past History
Past History
ED Past Medical History: CAD, GERD, HTN, Hypercholesterolemia, IDDM and Other (COVID-19, anemia, peripheral vascular disease, chronic kidney disease, celiac artery dissection, anemia, HSP)
ED Past Surgical History: Cardiac
Social History
Tobacco: Non-smoker
Alcohol: Occasional
Drug: None
Personal:
Living: with family
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
Family History
Family History: Other (Father with CAD, mother with diabetes)
Review of Systems
Review of Systems
All Other Systems: ROS reviewed and negative except as documented in HPI and ROS
Phy Exam
Physical Exam
Physical Exam:
General: Patient is well appearing and in no acute distress; non-toxic
Skin: Warm and dry, no rashes or lesions
Head: Normocephalic, atraumatic
Eyes: Sclera non-icteric. EOMs intact.
Cardiac: Regular rate and rhythm, no murmurs
Peripheral vascular: Bilateral lower extremity edema, 2+ dorsalis pedis pulses bilaterally
Pulm: Increased respiratory rate, diffuse rales heard throughout
Abdomen: No abdominal tenderness to palpation
Neuro: CN II-XII intact, no focal neurologic deficits.
Psychiatric: Appropriate mood and affect.
Scores
Heart Failure Risk
Heart Failure Risk Score: Yes
History of Stroke or TIA: No
History of intubation for respiratory distress: No
Heart rate on ED arrival >/= 110: No
SaO2 <90% on arrival on room air: Yes
HR >/=110 during 3min walk test (or too ill to perform test): Yes
ECG has acute ischemic changes: No
Urea >/=12mmol/L (BUN 33.6mg/dL): Yes
Serum CO2>/=35mmol/L: No
Troponin I or T elevated to IL Level (0.4mg/dL): No
NT-proBNP >/=5,000ng/L (5,000pg/ml): Yes
HF Risk Score: 5
Admission Status: VERY HIGH RISK 39.8% Consider admission to hospital
Course
Orders/Labs/Results
Orders:
Orders
11/26/24 03:04
EKG [Electrocardiogram (*1)] Urgent
Reason for Study: Shortness of Breath
EKG- Treatment ONCE
11/26/24 03:19
Cardiac Monitoring- Treatment ONCE
IV Insert/Care/Rem.- Treatment PRN
CR Chest - 2 Views Urgent
Comment:
Reason For Exam: respiratory distress
O2 Therapy [RESP] Urgent
Titrate/Wean O2 to maintain O2 sat greater than (%): 93
Special Instructions: TO MAINTAIN CONTINUOUS O2 SATS >/= 93%
Pulse Ox/cont/shift [RESP] Urgent
Quantity: 1
Special Instructions: continuous pulse ox
11/26/24 03:30
Basic Metabolic Panel Urgent
Complete Blood Count/With Diff Urgent
Hep Liver [Sgiwe-Jlvi-Lhhjrda] Urgent
NT-proBNP Urgent
Potassium Urgent
Troponin I Urgent
11/26/24 04:35
Furosemide [Lasix] 40 mg IV NOW STA
11/26/24 05:11
Admit/Transfer Patient As Directed
Co-Sign Provider:
Level of Care: Inpatient admission
Assign to:: IMU- Intermediate Care
Physician / Group: Roman
Diagnosis: CHF
Reason for Hospitalization: CHF
Expected length of stay greater than two midnights?: Yes
ELOS- Estimated Length of Stay in days: 3
I certify the patient meets the requirements for IP care: Yes
11/26/24 05:12
PRN Pain Medication Management As Directed
May give lesser potent ordered pain med per pt: Yes
preference::
Protocol:: Medication orders for pain may be administered in a
manner that supports deferring to patient preference
when the pt is:
- Requesting an ordered lesser potent pain medication.
Least to most potent pain medications are defined
as: acetaminophen < NSAID < tramadol < opioids
(morphine, oxycodone, hydromorphone).
- Requesting a lesser dose of the same medication IF
ORDERED.
- Requesting a less intrusive route of administration
if both routes are prescribed by the provider (PO <
IV).
11/26/24 05:17
Code Status As Directed
Resuscitation Status: Full Code
Abnormal Lab Results
11/26/24
03:30
RBC 3.53 L 10^6/uL
(4.20-5.40)
Hgb 10.0 L g/dL
(12.0-16.0)
Hct 32.6 L %
(37.0-47.0)
MCHC 30.7 L g/dL
(33.0-37.0)
RDW 17.0 H %
(11.5-14.5)
MPV 13.2 H fL
(7.4-10.4)
Lymphocytes % 20.0 L %
(20.5-51.1)
Chloride 110 H mmol/L
(98-107)
BUN 40 H mg/dl
(7-17)
Creatinine 1.9 H mg/dL
(0.6-1.0)
Glucose 229 H mg/dl
(70-99)
Calcium 7.8 L mg/dl
(8.4-10.2)
AST 76 H U/L
(14-36)
ALT 71 H U/L
(0-35)
Alkaline Phosphatase 177 H U/L
(38-126)
Troponin I 0.075 H* ng/ml
11/26/24 03:30
11/26/24 03:30
Vital Signs
Initial and Last Documented VS:
Initial Vital Signs
Temp Pulse Resp BP Pulse Ox
97.7 F 98 18 186/85 95
11/26/24 03:05 11/26/24 03:05 11/26/24 03:05 11/26/24 03:05 11/26/24 03:05
Last Documented Vital Signs
Temp Pulse Resp BP Pulse Ox
97.7 F 73 16 135/53 100
11/26/24 03:05 11/26/24 06:00 11/26/24 06:00 11/26/24 06:00 11/26/24 06:00
MDM/Problems Addressed
Differential Diagnosis Includes:
Differentials include acute CHF, COPD exacerbation, pneumonia, interstitial lung disease, PE
MDM/Problems Addressed:
74-year-old female presents emergency department today with concerns of shortness of breath. She was found by EMS to be 85% on room air she was placed on 4 L via nasal cannula. On my exam she is well-appearing in no acute distress she does have
increased respiratory rate and rales heard throughout. Her chest x-ray is consistent with acute pulmonary edema. Suspect acute CHF. Will initiate Lasix. Case reviewed with attending physician. Patient referred for admission.
Chronic conditions affecting care:
Coronary artery disease, hypertension, hyperlipidemia
*Pulse Oximetry
Patient hypoxic: yes
*Critical Care Note
Total Time (30-74mins, 75-104mins- exclusive of procedures): Not Applicable
Data Reviewed
Review of Other/Old Records Reveals: Records (Reviewed discharge summary from 11/16/2024 patient admitted for shortness of breath this found to have heart failure exacerbation and she was ruled in for IL and had obstructive coronary artery disease)
Source: patient and records
ED Attending Note
-
Portions of this chart may have been created with voice recognition software.� Occasional wrong word or��sound alike� substitutions may have occurred due to the inherent limitations of voice recognition software.
Discharge Plan
Departure
Patient Disposition: Admit
Date of Disposition: 11/26/24
Time of Disposition: 04:38
Admit to: Telemetry
Presentation/result/management discussed w/ accepting MD/DO: Hospitalist
Patient with high blood pressure during this ER visit?: Yes
Condition: Fair
Discharge Problem:
Acute pulmonary edema
Interventions
Interventions:
*Risk Screen - Suicide Last Done: 11/26/24 03:05
*General Assessment Last Done: 11/26/24 03:05
*Neglect/Abuse Screening Last Done: 11/26/24 03:05
*ED- Fall Risk Assessment Last Done: 11/26/24 03:37
ED- Cardiac Assessment Last Done: 11/26/24 03:37
ED- Pulmonary Assessment Last Done: 11/26/24 03:37
--- NOTE | 2024-11-26 03:18 | EDRN ---
Audible wheezing heard, pt complained of difficulty breathing. Pt placed on 4 lpm O2 via nasal cannula and breathing improved, pulse ox 100%, pt speaking in full sentences.
[2024-11-26 03:48] LABS: % Basophils 0.9 % (0-2); % Eosinophils 5.5 % (0-6); % Immature Granulocytes 0.2 % (0-0.5); % Monocytes 6.8 % (1.7-9.3); % Neutrophils 66.6 % (42.2-75.2); Absolute Basophils 0.1 10^3/uL (0-0.2); Absolute Eosinophils 0.5 10^3/uL (0-0.7); Absolute Lymphocytes 1.9 10^3/uL (1.2-3.4); Absolute Monocytes 0.6 10^3/uL (0.1-0.6); Absolute Neutrophils 6.2 10^3/uL (1.4-6.5); Hematocrit 32.6 % (37.0-47.0); Mean Corp Hgb Conc. 30.7 g/dL (33.0-37.0); Mean Corpuscular Hgb 28.3 pg (27.0-31.0); Mean Corpuscular Volume 92.4 fL (81.0-99.0); Mean Platelet Volume 13.2 fL (7.4-10.4); Nucleated Red Blood Cells % 0 %; Platelet Count 164 10^3/uL (130-400); Red Blood Cell Count 3.53 10^6/uL (4.20-5.40); White Blood Cell Count 9.3 10^3/uL (4.8-10.8)
[2024-11-26 04:05] LABS: Blood Urea Nitrogen 40 mg/dl (7-17); Calcium 7.8 mg/dl (8.4-10.2); Carbon Dioxide 22 mmol/L (22-30); Chloride 110 mmol/L (98-107); Estimated Creatinine Clearance 22 ml/min; Glucose 229 mg/dl (70-99); Sodium 143 mmol/L (135-145); eGFR 27.37
[2024-11-26 04:16] LABS: NT-proBNP 13700 pg/ml; Troponin I 0.075 ng/ml
[2024-11-26 04:28] LABS: ALT (SGPT) 71 U/L (0-35); AST (SGOT) 76 U/L (14-36); Albumin 4.3 g/dl (3.5-5.0); Alkaline Phosphatase 177 U/L (38-126); Potassium 4.1 mmol/L (3.5-5.1); Total Bilirubin 0.6 mg/dl (0.2-1.3); Total Protein 6.6 g/dl (6.3-8.2)
[2024-11-26 04:38] LABS: Direct Bilirubin 0.4 mg/dl (0.0-0.4)
[2024-11-26] MEDS: LASIX 40 MG IV ×2 (04:54→10:05)
--- NOTE | 2024-11-26 05:20 | HPS.HSE ---
Family Physician
-
Family Physician: Isaak Carlton
Chief Complaint
-
SOB
History of Present Illness
Patient is a 74y F with PMH significant for hypertension, DM-II and chronic ILD s/p COVID who presents to ED complaining of SOB. Patient states that she has been feeling fairly since her recent hospital discharge. No significant cough, fevers /
chills, chest pain, etc. This evening she was relaxing watching TV when she developed sudden and severe SOB. Patient attempted to lie down, but became more SOB. She walked around in her home for a time - but called 911 when her dyspnea did not
improve. Patient was admitted to from 10/29 - 11/16 for similar (though more severe) presentation. She was briefly diuresed during that stay - but diuretics were held for the vast majority of her time and she was not discharged on diuretic regimen.
Patient underwent diagnostic catheterization on 11/01 which revealed multivessel disease. She was seen by CT Surgery, but decision was made to attempt high-risk percutaneous intervention in lieu of open-heart surgery.
Patient underwent catheterization on 11/14 with placement of L main to LCx stent and L main to LAD stent.
Her hospitalization was complicated by the development of JESI - likely due to contrast nephropathy.
Patient states that she had been feeling well following discharge - until this evening. She weighs herself daily and her weight has been constant at 135 lbs.
Tonight, she noted new LE swelling (L > R) and noted that her weight was 137 lbs. She then developed the sudden SOB as noted above.
At the time of my examination, patient is resting comfortably and feels improved from admission.
Medical History
Past Medical History
Past Medical History: Reports Other
Additional Past Medical History:
Hypertension
DM-II
CKD IV
ASCVD (CAD, PAD)
Chronic HFpEF
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
Past Surgical History: Reports Other
Additional Past Surgical History:
PTCA with Stents (11/14/24)
Diagnostic Cardiac Cath (11/01/24)
Gastric Bypass
D&C
T&A
PTCA / Stents
PAD Stents / Endarterectomies
Left ERIC
Social History
Tobacco: Non-smoker
Alcohol: Occasional (Rarely.)
Drug: None
Family History
Family History: Not pertinent
Allergies / Home Medications
Allergies reflects when Allergies were last updated in [facility].
Home Medications with original date entered in [facility]
Allergy/Medication List:
Allergies
Allergy/AdvReac Type Severity Reaction Status Date / Time
MARCELL Inhibitors (Marcell Allergy Swelling/AN Verified 11/26/24 03:15
Inhibitors) GIOEDEMA
chamomile flower Allergy Rash Verified 11/26/24 03:15
Sulfa (Sulfonamide Allergy Rash Verified 11/26/24 03:15
Antibiotics)
sulfite Allergy VASCULITIS Verified 11/26/24 03:15
artificial sweetners Allergy Unknown Uncoded 11/26/24 03:15
Home Medications
clopidogrel 75 mg tablet (Plavix) 75 mg PO DAILY Blood Clot Prevention/Tx 06/19/24
ezetimibe 10 mg tablet 10 mg PO DAILY cholesterol #0 tabs 07/02/24
febuxostat 40 mg tablet 40 mg PO HS elevated uric acid #0 tabs 07/02/24
atorvastatin 80 mg tablet 80 mg PO QPM cholesterol 10/29/24
cholecalciferol (vitamin D3) 50 mcg (2,000 unit) tablet (Vitamin D3) 50 mcg PO DAILY Supplement 10/29/24
coQ10 (ubiquinol) 200 mg capsule 400 mg PO DAILY High Cholesterol 10/29/24
pantoprazole 40 mg tablet,delayed release (Protonix) 40 mg PO DAILY Gastrointestinal Issue 10/29/24
pregabalin 150 mg capsule 300 mg PO HS diabetic neuropathy 10/29/24
sodium bicarbonate 650 mg tablet 650 mg PO BID Electrolyte Repletion 10/29/24
tramadol 50 mg tablet 50 mg PO Q6HPRN PRN moderate pains 10/29/24
aspirin 81 mg chewable tablet 81 mg PO DAILY 30 days #30 tabs 11/16/24
ferrous sulfate 325 mg (65 mg iron) tablet (FeroSul) 325 mg PO DAILY 30 days #30 tabs 11/16/24
insulin aspart U-100 100 unit/mL (3 mL) subcutaneous pen (Novolog FlexPen U-100 Insulin aspart) 5 unit (0.05 mL) SC AC Diabetes #5 ea 11/16/24
metoprolol succinate 25 mg tablet,extended release 24 hr 25 mg PO DAILY 30 days #30 tabs 11/16/24
insulin glargine 100 unit/mL (3 mL) subcutaneous pen (Basaglar KwikPen U-100 Insulin) 14 unit SC DAILY@0700 Diabetes 11/26/24
Review of Systems
-
History Source: Patient
A 12 point ROS was completed and negative except as noted: Yes
Constitutional: Reports Weight Gain; Denies Fever or Chills
Respiratory: Reports Trouble Breathing; Denies Cough
Cardiac: Denies Chest Pain or Palpitations
Abdomen/GI: Denies Abdominal Pain, Nausea, Vomiting or Diarrhea
: Denies Dysuria or Frequency
Musculoskeletal: Reports Edema
Neurological: Denies Dizzy or Headache
Psych: Denies Depression or Anxiety
Physical Exam
Vital Signs
Vital Signs
Temp Pulse Resp BP Pulse Ox
97.7 F 76 18 141/57 97
11/26/24 03:05 11/26/24 05:00 11/26/24 05:00 11/26/24 05:00 11/26/24 05:00
Physical Exam
General: Other (74y F in no acute distress.)
HEENT: Moist mucous membranes, PERRLA and Other (No JVD.)
Respiratory: Other (Diffuse rales. No wheezing.)
Cardiac: S1/S2 and Regular Rhythm; No Murmur
GI: Soft, Non Tender, Non Distended and Normal Bowel Sounds
Musculoskeletal: No Clubbing, No Cyanosis and Other (2+ L pedal edema. 1+ R LE edema.)
Neuro: AO x 3
Laboratory Results
-
11/26/24 03:30
11/26/24 03:30
Laboratory Results
Total Bilirubin 0.6 mg/dl (0.2-1.3) 11/26/24 03:30
Total Bilirubin Cancelled 11/26/24 03:30
AST 76 U/L (14-36) H 11/26/24 03:30
AST Cancelled 11/26/24 03:30
ALT 71 U/L (0-35) H 11/26/24 03:30
ALT Cancelled 11/26/24 03:30
Alkaline Phosphatase 177 U/L (38-126) H 11/26/24 03:30
Alkaline Phosphatase Cancelled 11/26/24 03:30
Troponin I 0.075 ng/ml H* 11/26/24 03:30
Impression/Plan
-
A/P: Patient is a 74y F with PMH significant for HTN, DM-II and ASCVD who presents to ED for evaluation of SOB.
Acute on Chronic HFpEF
Acute Hypoxemic Respiratory Failure secondary to the above
- Admit for further evaluation and treatment.
- CXR, BNP appear worse than prior admission.
- New weight gain and LE edema which patient noted only today.
- Lasix given in the ED. Will continue this daily for now.
- Follow I/Os, daily weights, etc.
- Monitor closely for changes in renal function, etc (see below).
- Cardiology evaluation for additional recommendations.
ASCVD
- s/p high-risk coronary intervention during prior admission.
- No chest pain.
- Current troponin - while abnormal - continues to trend down from prior hospitalization.
- Continue current CV med regimen including DAPT, statin, etc.
Benign Hypertension
- BP initially elevated on arrival (systolic 180s) but improved significantly.
- Continue current med regimen and adjust as needed for adequate BP control.
CKD IV
Metabolic Acidosis
- Stable. Renal function appears somewhat better than recent baseline.
- Follow for changes with diuresis.
- Continue bicarb supplementation.
DM-II
- Stable. Continue basal insulin.
- Follow glucose and cover with SSI as needed.
- A1C last month was 11.8.
- Adjust regimen as needed for improved control.
ILD
- Patient reports history of interstitial lung disease s/p severe COVID pneumonia.
- Follow for any new / worsening dyspnea despite diuresis.
Anemia of Chronic Disease
- Stable / Improved from prior.
- Continue iron supplementation.
- Follow for changes.
DVT Prophylaxis: Subcut heparin
Code Status: Full
--- NOTE | 2024-11-26 06:38 | EDRN ---
Pt's pulse ox remains 100% while sleeping, respirations even/non labored - turned off oxygen.
--- NOTE | 2024-11-26 07:03 | EDRN ---
Attempted to call report to IMU, will call back
--- NOTE | 2024-11-26 07:15 | EDRN ---
Gave report to Kyara in IMU and was informed she will call the assembly and packing supervisor to see if pt can be downgraded. Dalia Ludwig RN updated.
[2024-11-26 09:49] LABS: Glucose - Point of Care 188 mg/dl (70-99)
[2024-11-26] MEDS: FEOSOL 325 MG PO (10:03)
[2024-11-26] MEDS: PROTONIX 40 MG PO (10:03)
[2024-11-26] MEDS: LOW STRENGTH ASPIRIN 81 MG PO (10:03)
[2024-11-26] MEDS: PLAVIX 75 MG PO (10:03)
[2024-11-26] MEDS: SODIUM BICARBONATE 650 MG PO ×2 (10:03→20:50)
[2024-11-26] MEDS: TOPROL XL 25 MG PO (10:04)
[2024-11-26] MEDS: HEPARIN 5000 UNITS SC ×2 (10:06→20:52)
[2024-11-26] MEDS: NOVOLOG FLEXPEN-MODERATE RESISTANCE 1 UNITS SC (10:36)
[2024-11-26] MEDS: LANTUS 0.1 UNITS SC (11:05)
--- NOTE | 2024-11-26 12:28 | CM ---
Addendum entered by Marilyn Byrd 11/26/24 12:37:
Pt is currently followed by [facility]
Original Note:
Reviewed chart and met with pt bedside in ED. Lives in 2 story town home with her , [address]. Has WC, rolling walker and raised toilet seat. Multiple recent stays at . Had recent stay at [facility], no history of VN. [facility].
PCP: Isaak Munguia
Pharmacy: [facility]
Plan: Home, follow up with wound care, pending ongoing medical evaluation
[2024-11-26 12:31] LABS: Glucose - Point of Care 273 mg/dl (70-99)
[2024-11-26] MEDS: NOVOLOG FLEXPEN-MODERATE RESISTANCE 5 UNITS SC ×2 (12:32→17:00)
--- NOTE | 2024-11-26 12:50 | W.PN.HOSP.TC ---
Today's Communication/Plan
-
Monitor vitals
See plan
PT evaluation
Cardiology to see
Nonbillable note, admitted past midnight
Continue with Lasix
Monitor I's and O's
Monitor renal function
Monitor LFTs
Assessment / Plan
Assessment / Plan
General: Other (74y F in no acute distress.)
HEENT: Moist mucous membranes, PERRLA and Other (No JVD.)
Respiratory: Other (Diffuse rales. No wheezing.)
Cardiac: S1/S2 and Regular Rhythm; No Murmur
GI: Soft, Non Tender, Non Distended and Normal Bowel Sounds
Musculoskeletal: No Clubbing, No Cyanosis and Other (2+ L pedal edema. 1+ R LE edema.)
Neuro: AO x 3
Acute on Chronic HFpEF
Acute Hypoxemic Respiratory Failure secondary to the above
- Admit for further evaluation and treatment.
- CXR, BNP appear worse than prior admission.
- New weight gain and LE edema
Continue with daily Lasix for now
- Follow I/Os, daily weights, etc.
- Monitor closely for changes in renal function, etc (see below).
- Cardiology evaluation
ASCVD
- s/p high-risk coronary intervention during prior admission.
- No chest pain.
- Current troponin - while abnormal - continues to trend down from prior hospitalization.
- Continue current CV med regimen including DAPT, statin, etc.
Benign Hypertension
- Continue current med regimen and adjust as needed for adequate BP control.
CKD IV
Metabolic Acidosis
- Stable. Renal function appears somewhat better than recent baseline.
- Follow for changes with diuresis.
- Continue bicarb supplementation.
Elevated LFTs
Monitor
No abdominal pain
DM-II
- Stable. Continue basal insulin.
- Follow glucose and cover with SSI as needed.
- A1C last month was 11.8.
- Adjust regimen as needed for improved control.
ILD
- Patient reports history of interstitial lung disease s/p severe COVID pneumonia.
- Follow for any new / worsening dyspnea despite diuresis.
Anemia of Chronic Disease
- Stable / Improved from prior.
- Continue iron supplementation.
- Follow for changes.
DVT Prophylaxis: Subcut heparin
Code Status: Full
Anticipated Discharge: > 48 hours
Subjective/Interval History
-
Date of Service: November 26, 2024
Denies pain
Objective Data
-
Labs:
Laboratory Results
11/26/24 11/26/24 11/26/24
03:30 03:30 03:30
WBC 9.3
Hgb 10.0 L
Hct 32.6 L
Plt Count 164
Sodium 143
Potassium 4.1
Chloride 110 H
Carbon Dioxide 22
BUN 40 H
Creatinine 1.9 H
Glucose 229 H
Calcium 7.8 L
Total Bilirubin Cancelled 0.6
AST Cancelled
ALT
Alkaline Phosphatase
11/26/24 11/26/24 11/26/24
03:30 03:30 03:30
WBC
Hgb
Hct
Plt Count
Sodium
Potassium
Chloride
Carbon Dioxide
BUN
Creatinine
Glucose
Calcium
Total Bilirubin
AST 76 H
ALT Cancelled 71 H
Alkaline Phosphatase Cancelled 177 H
Vital Signs:
Vital Signs
Temp Pulse Resp BP Pulse Ox
97.7 F 63 14 137/59 97
11/26/24 03:05 11/26/24 12:00 11/26/24 12:00 11/26/24 12:00 11/26/24 07:05
--- NOTE | 2024-11-26 12:54 | CON.CAR ---
Addendum entered and electronically signed by Prashant Samuels DO 11/26/24 15:33:
I saw and examined the patient.
The Marketing Manager [employer]'s note was reviewed and I agree with the note.
Comment:
Plan:
Acute on chronic HFpEF, proBNP 59522
IV lasix diuresis
Follow daily wts, her wt is up 4 lbs from last admit
Monitor pBNP which is higher than it has been.
Monitor LFTs for improvement with diuresis
Monitor cr closely with hx of CRI
Cont medical therapy for nonMI troponin.
Recent NSTEMI October 2024. Found to have multivessel coronary artery disease and was deemed poor surgical candidate. Ultimately, underwent complex PCI of the left main into LCx and left main into LAD as noted above 11/14/2024.
Continue GDMT Toprol, aspirin, Plavix, atorvastatin and Zetia
During recent admission most antihypertensive agents were discontinued due to hypotension.
Original Note:
Consultation
Consultation Request
Date/Time Consultation Requested: 11/26/2024
Date/Time Consultation Performed: 11/26/2024
Requesting Provider: Dr. Owens
Performing Provider: Carol Sánchez PA-C for Dr. Samuels
Reason for Consultation: Pulmonary edema, shortness of breath
Medical History
-
History of Present Illness:
Patient is a 74 year old female with PMH of CAD, PAD, HFpEF, HTN, HLD, DM2, CKD, iron deficiency anemia, and glaucoma. Presented 11/26/2024 to [facility] ED with sudden onset shortness of breath and cough. She was recently admitted in early October 2024 with
chest pain and shortness of breath. She was found to be in acute heart failure with newly reduced ejection fraction and ruled in for NSTEMI with newly reduced ejection fraction and ultimately complex drug-eluting stent placement to distal left main
into left circumflex/OM M distal left main into proximal LAD. Hospitalization was complicated by contrast nephropathy with underlying CKD. Therefore she was not discharged on diuretic.
Last night, after dinner she reported sudden onset of acute shortness of breath while trying to fall asleep. She was unable to lie flat and continued to have difficulty with breathing even with sitting up. Due to worsening of symptoms EMS was
called. Patient was found to be hypoxic with pulse ox of 85% on room air. She was placed on nonrebreather and given albuterol treatment. On arrival to ER, she was noted to be hypertensive (186/85). Chest x-ray consistent with pulmonary edema.
proBNP found to be 13,700 which was higher than prior admission. Initial and peak troponin of 0.075 which was lower than previous admission. EKG demonstrated sinus rhythm with nonspecific ST-T wave abnormality. She was given IV Lasix and
symptomatically has been improving. At time of this evaluation patient sitting in bed wearing 2 L of oxygen. Still feels somewhat short of breath and not back to baseline. Complains of lower extremity edema but denies abdominal bloating, chest
pain or palpitations
PMH:
Chronic HFpEF
CAD
NSTEMI with complex MATT distal LM into LCx/OM1 3.0 x 22 mm Medtronics [place] drug-eluting stent and from distal LM into proximal LAD 2.75 x 18 mm Medtronic [place] drug-eluting stent 11/14/2024
s/p 2.5 mm Xience OM1 PCI 01/20/21
s/p Xience prox and overlapping previously placed distal OM-1 05/17/2019
s/p 2.5 mm Xience OM1 PCI 02/12/2019
Hyperglycemia
PAD
s/p R common femoral endarterectomy w/ patch angioplasty and covered R iliac stent 01/2024
s/p right SFA angioplasty and stent 04/2020
h/o COVID w/ residual parenchymal scarring
HTN
HLD
DM2
CKD 4
h/o Henoch-Schonlein purpura
Glaucoma
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
h/o gastric bypass 2010
h/o angioedema on MARCELL inhibitors
Aortic atherosclerosis
h/o orthostasis on Terazosin
h/o TIA 2016
Iron deficiency anemia
Past Medical History
Past Medical History: Other (In HPI)
Past Surgical History: Cardiac (Multiple coronary stents), Orthopedic (L hip replacement 05/2024) and Tonsilectomy
Social History
Tobacco: Non-Smoker
Alcohol: None
Drug: None
Personal:
Living: With Family
Employment: Employed
Family History
Family History: CAD and Hypertension
Allergies / Home Medications
Allergy/AdvReac Type Severity Reaction Status Date / Time
MARCELL Inhibitors (Marcell Allergy Swelling/AN Verified 11/26/24 03:15
Inhibitors) GIOEDEMA
chamomile flower Allergy Rash Verified 11/26/24 03:15
Sulfa (Sulfonamide Allergy Rash Verified 11/26/24 03:15
Antibiotics)
sulfite Allergy VASCULITIS Verified 11/26/24 03:15
artificial sweetners Allergy Unknown Uncoded 11/26/24 03:15
�Medication �Instructions �Recorded �Confirmed �Type
clopidogrel 75 mg tablet (Plavix) 75 mg PO DAILY Blood Clot 06/19/24 11/26/24 History
Prevention/Tx
ezetimibe 10 mg tablet 10 mg PO DAILY cholesterol #0 tabs 07/02/24 11/26/24 Rx
febuxostat 40 mg tablet 40 mg PO HS elevated uric acid #0 07/02/24 11/26/24 Rx
tabs
atorvastatin 80 mg tablet 80 mg PO QPM cholesterol 10/29/24 11/26/24 History
cholecalciferol (vitamin D3) 50 50 mcg PO DAILY Supplement 10/29/24 11/26/24 History
mcg (2,000 unit) tablet (Vitamin
D3)
coQ10 (ubiquinol) 200 mg capsule 400 mg PO DAILY High Cholesterol 10/29/24 11/26/24 History
pantoprazole 40 mg tablet,delayed 40 mg PO DAILY Gastrointestinal 10/29/24 11/26/24 History
release (Protonix) Issue
pregabalin 150 mg capsule 300 mg PO HS diabetic neuropathy 10/29/24 11/26/24 History
sodium bicarbonate 650 mg tablet 650 mg PO BID Electrolyte Repletion 10/29/24 11/26/24 History
tramadol 50 mg tablet 50 mg PO Q6HPRN PRN moderate pains 10/29/24 11/26/24 History
aspirin 81 mg chewable tablet 81 mg PO DAILY 30 days #30 tabs 11/16/24 11/26/24 Rx
ferrous sulfate 325 mg (65 mg 325 mg PO DAILY 30 days #30 tabs 11/16/24 11/26/24 Rx
iron) tablet (FeroSul)
insulin aspart U-100 100 unit/mL 5 unit (0.05 mL) SC AC Diabetes #5 11/16/24 11/26/24 Rx
(3 mL) subcutaneous pen (Novolog ea
FlexPen U-100 Insulin aspart)
metoprolol succinate 25 mg 25 mg PO DAILY 30 days #30 tabs 11/16/24 11/26/24 Rx
tablet,extended release 24 hr
insulin glargine 100 unit/mL (3 14 unit SC DAILY@0700 Diabetes 11/26/24 11/26/24 History
mL) subcutaneous pen (Basaglar
KwikPen U-100 Insulin)
Review of Systems
-
History Source: Patient
All other systems: Negative unless noted
Physical Exam
Vital Signs
Temp Pulse Resp BP Pulse Ox
97.7 F 63 14 137/59 97
11/26/24 03:05 11/26/24 12:00 11/26/24 12:00 11/26/24 12:00 11/26/24 07:05
GEN: No distress, awake, Ox3, sitting in bed wearing oxygen
HEENT: supple, anicteric, mmm
LUNGS: Diffuse crackles bilaterally
CV: Reg, S1/S2, no murmur, rub or gallop, positive JVD
ABD: soft, BS+, NT/ND
EXT: +1 bilateral lower extremity edema, no clubbing or cyanosis
NEURO: Gross non-focal
SKIN: No rash, warm, dry, pink
Lab Results
11/26/24 03:30
11/26/24 03:30
Troponin I 0.070 ng/ml H* 11/26/24 10:16
Gpc-U-Nytemiyjlon Pept 59124 pg/ml 11/26/24 03:30
Impression / Plan
-
PCP: Dr. Carlton
Neurology Technologist: Dr. VICKY Danielson
Impression:
Presented 11/26/2024 w/ sudden onset SOB
Pulmonary edema
Acute on chronic HFpEF, proBNP 73947
Elevated troponin, peak 0.075
Abnormal LFTs
CAD
NSTEMI, s/p complex MATT distal LM into LCx/OM1 3.0 x 22 mm Medtronics [place] drug-eluting stent and from distal LM into proximal LAD 2.75 x 18 mm Medtronic [place] drug-eluting stent 11/14/2024
s/p 2.5 mm Xience OM1 PCI 01/20/21
s/p Xience prox and overlapping previously placed distal OM-1 05/17/2019
s/p 2.5 mm Xience OM1 PCI 02/12/2019
Hyperglycemia
PAD
s/p R common femoral endarterectomy w/ patch angioplasty and covered R iliac stent 01/2024
s/p right SFA angioplasty and stent 04/2020
h/o COVID w/ residual parenchymal scarring
HTN
HLD
DM2
CKD 4
h/o Henoch-Schonlein purpura
Glaucoma
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
h/o gastric bypass 2010
h/o angioedema on MARCELL inhibitors
Aortic atherosclerosis
h/o orthostasis on Terazosin
h/o TIA 2016
Iron deficiency anemia
Echo 08/06/2020: EF 64%. Mild LVH. Normal RV. Mild MAC with mild MR. No AI or . Trace TR. PAP 29 mmHg
Echo 01/19/2021: EF 55-60%, stage I diastolic dysfunction, trace MR, trace TR, PAP 21 mmHg
Echo 10/29/2024: EF 40-45%, Stage I diastolic dysfunction, mild inferolateral and inferior hypokinesis
Echo 11/14/2024: EF 50 to 55%. No significant valvular disease. No pericardial effusion.
Cardiac cath 11/01/2024: Left main 60% distal. LAD 40% ostial. Circumflex: Hazy 80% ostial, stents in OM1 with moderate diffuse ISR, smaller daughter branch of OM1 with 70% stenosis. RCA 60 to 70% ostial stenosis
Cardiac cath 11/14/2024: Successful complex percutaneous coronary artery intervention with one 3.0 x 22 mm Medtronics [place] drug-eluting stent from distal left main into left circumflex artery/OM1 and a second 2.75 x 18 mm Medtronic [place] drug-eluting
stent from distal left main into proximal LAD
Plan:
-Presents 11/26/2024 w/ sudden onset SOB. Found to be hypoxic by EMS and hypertensive. Chest x-ray consistent with acute pulmonary edema.
-Acute on chronic HFpEF, proBNP 53223
proBNP higher of this admission then during previous admission which was 8600. Weight up 4 pounds compared to prior discharge weight
Symptomatically improving with ongoing IV diuresis
Prior to recent admission patient had been on Lasix 40 mg daily. She was not sent home on Lasix due to concern for JESI on CKD. Likely will need low-dose diuretic at discharge
Abnormal LFTs likely due to hepatic congestion due to acute heart failure exacerbation
-Elevated troponin, initial troponin 0.075 then downward trended. This is lower than prior admission. EKG stable without acute ischemia. Patient currently denies chest pain. Suspect nonischemic myocardial injury secondary to acute pulmonary
edema/heart failure exacerbation.
-Known multivessel coronary artery disease
Recent NSTEMI October 2024. Found to have multivessel coronary artery disease and was deemed poor surgical candidate. Ultimately, underwent complex PCI of the left main into LCx and left main into LAD as noted above 11/14/2024.
Continue GDMT Toprol, aspirin, Plavix, atorvastatin and Zetia
Could consider addition of SGLT2 inhibitor given CKD, heart failure and CAD, although patient on insulin for diabetes so blood sugars would need to be monitored closely
-Hypertension
Blood pressure improving with ongoing diuresis
Continue Toprol.
During recent admission most antihypertensive agents were discontinued due to hypotension. Previously patient was on Imdur, hydralazine and Aldactone.
Patient has h/o angio-edema from MARCELL-I. Would avoid MARCELL/ARB
-Chronic anemia.
Hemoglobin improved and stable at 10.0
Continue iron supplementation
-History of CKD, stage IV, follows with Dr. Cast
Patient developed contrast-induced nephropathy during admission in October 2024. Baseline creatinine 2-2.3.
Creatinine 1.9 on admission. Continue to follow with ongoing diuresis
Continue sodium bicarb
- Type 2 diabetes, treatment per primary service. Patient is on insulin
HPI 11/26/2024
Patient is a 74 year old female with PMH of CAD, PAD, HFpEF, HTN, HLD, DM2, CKD, iron deficiency anemia, and glaucoma. Presented 11/26/2024 to [facility] ED with sudden onset shortness of breath and cough. She was recently admitted in early October 2024 with
chest pain and shortness of breath. She was found to be in acute heart failure with newly reduced ejection fraction and ruled in for NSTEMI with newly reduced ejection fraction and ultimately complex drug-eluting stent placement to distal left main
into left circumflex/OM M distal left main into proximal LAD. Hospitalization was complicated by contrast nephropathy with underlying CKD. Therefore she was not discharged on diuretic.
Last night, after dinner she reported sudden onset of acute shortness of breath while trying to fall asleep. She was unable to lie flat and continued to have difficulty with breathing even with sitting up. Due to worsening of symptoms EMS was
called. Patient was found to be hypoxic with pulse ox of 85% on room air. She was placed on nonrebreather and given albuterol treatment. On arrival to ER, she was noted to be hypertensive (186/85). Chest x-ray consistent with pulmonary edema.
proBNP found to be 13,700 which was higher than prior admission. Initial and peak troponin of 0.075 which was lower than previous admission. EKG demonstrated sinus rhythm with nonspecific ST-T wave abnormality. She was given IV Lasix and
symptomatically has been improving. At time of this evaluation patient sitting in bed wearing 2 L of oxygen. Still feels somewhat short of breath and not back to baseline. Complains of lower extremity edema but denies abdominal bloating, chest
pain or palpitations
Data Reviewed
-
EKG: Report Reviewed by me, Discussed with Physician and Discussed with Patient
Radiology: Report Reviewed by me, Discussed with Physician and Discussed with Patient
Labs: Labs Reviewed by me, Discussed with Physician and Discussed with Patient
Old Records: Reviewed
--- NOTE | 2024-11-26 15:56 | PTCARENOTE ---
pt presents from ED via stretcher. pt is AAO*3, Vss, 2L o2 97%. pt denies any pain of discomfort at this time. pt oriented to the room. call duran within the reach. plan of care ongoing.
[2024-11-26 16:49] LABS: Glucose - Point of Care 267 mg/dl (70-99)
[2024-11-26 16:54] LABS: Troponin I 0.071 ng/ml
[2024-11-26] MEDS: LIPITOR 80 MG PO (17:01)
[2024-11-26] MEDS: LYRICA 300 MG PO (20:54)
[2024-11-26 21:48] LABS: Glucose - Point of Care 159 mg/dl (70-99)
[2024-11-26 22:48] LABS: Troponin I 0.065 ng/ml
[2024-11-27 03:36] VITALS: BP 113/50
[2024-11-27 06:00] VITALS: BMI 25.1
[2024-11-27 07:09] LABS: Glucose - Point of Care 136 mg/dl (70-99)
[2024-11-27 07:25] VITALS: BP 134/53
[2024-11-27 08:01] LABS: % Basophils 0.8 % (0-2); % Eosinophils 9.6 % (0-6); % Immature Granulocytes 0.2 % (0-0.5); % Lymphocytes 34.4 % (20.5-51.1); % Monocytes 10.6 % (1.7-9.3); % Neutrophils 44.4 % (42.2-75.2); Absolute Eosinophils 0.5 10^3/uL (0-0.7); Absolute Lymphocytes 1.7 10^3/uL (1.2-3.4); Absolute Monocytes 0.5 10^3/uL (0.1-0.6); Absolute Neutrophils 2.2 10^3/uL (1.4-6.5); Hematocrit 27.4 % (37.0-47.0); Hemoglobin 8.4 g/dL (12.0-16.0); Mean Corp Hgb Conc. 30.7 g/dL (33.0-37.0); Mean Corpuscular Hgb 28.6 pg (27.0-31.0); Mean Corpuscular Volume 93.2 fL (81.0-99.0); Mean Platelet Volume 14.2 fL (7.4-10.4); Nucleated Red Blood Cells % 0 %; Platelet Count 145 10^3/uL (130-400); Red Blood Cell Count 2.94 10^6/uL (4.20-5.40); Red Cell Dist. Width 17.2 % (11.5-14.5)
--- NOTE | 2024-11-27 08:29 | VNURNOTE ---
Chart reviewed. Patient is current with [facility] nursing. Will continue to follow hospital course and DC plans.
[2024-11-27] MEDS: NOVOLOG FLEXPEN-MODERATE RESISTANCE SC (08:34)
[2024-11-27] MEDS: LOW STRENGTH ASPIRIN 81 MG PO (08:37)
[2024-11-27] MEDS: FEOSOL 325 MG PO (08:37)
[2024-11-27] MEDS: LANTUS 0.1 UNITS SC (08:37)
[2024-11-27] MEDS: PROTONIX 40 MG PO (08:37)
[2024-11-27] MEDS: PLAVIX 75 MG PO (08:38)
[2024-11-27] MEDS: TOPROL XL 25 MG PO (08:38)
[2024-11-27] MEDS: LASIX 40 MG IV (08:38)
[2024-11-27] MEDS: SODIUM BICARBONATE 650 MG PO ×2 (08:38→19:22)
[2024-11-27] MEDS: HEPARIN 5000 UNITS SC ×2 (08:39→19:24)
[2024-11-27 09:04] LABS: ALT (SGPT) 39 U/L (0-35); AST (SGOT) 23 U/L (14-36); Albumin 3.2 g/dl (3.5-5.0); Alkaline Phosphatase 127 U/L (38-126); Blood Urea Nitrogen 38 mg/dl (7-17); Calcium 7.7 mg/dl (8.4-10.2); Carbon Dioxide 24 mmol/L (22-30); Chloride 109 mmol/L (98-107); Estimated Creatinine Clearance 19 ml/min; Glucose 119 mg/dl (70-99); Sodium 142 mmol/L (135-145); Total Bilirubin 0.4 mg/dl (0.2-1.3); Total Protein 5.2 g/dl (6.3-8.2); eGFR 25.73
[2024-11-27 11:04] VITALS: BP 136/49
[2024-11-27 11:44] LABS: Glucose - Point of Care 151 mg/dl (70-99)
[2024-11-27] MEDS: NOVOLOG FLEXPEN-MODERATE RESISTANCE 1 UNITS SC ×2 (11:51→16:58)
--- NOTE | 2024-11-27 12:35 | W.PN.CARDCBS ---
Today's Communication / Plan
-
Continue IV lasix diuresis with transition to likely 40 mg daily November 28
Wt is back down to her last dry wt and her edema is improved.
LFTs much improved with diuresis
Cr stable, cont to monitor cr closely with hx of CRI
Cont medical therapy for nonMI troponin.
Impression / Plan
-
.
PCP: Dr. Carlton
Lens Assorter: Dr. VICKY Danielson
Impression:
Presented 11/26/2024 w/ sudden onset SOB
Pulmonary edema
Acute on chronic HFpEF, proBNP 96640
Elevated troponin, peak 0.075
Abnormal LFTs
CAD
NSTEMI, s/p complex MATT distal LM into LCx/OM1 3.0 x 22 mm Medtronics [place] drug-eluting stent and from distal LM into proximal LAD 2.75 x 18 mm Medtronic Hernan drug-eluting stent 11/14/2024
s/p 2.5 mm Xience OM1 PCI 01/20/21
s/p Xience prox and overlapping previously placed distal OM-1 05/17/2019
s/p 2.5 mm Xience OM1 PCI 02/12/2019
Hyperglycemia
PAD
s/p R common femoral endarterectomy w/ patch angioplasty and covered R iliac stent 01/2024
s/p right SFA angioplasty and stent 04/2020
h/o COVID 19 w/ residual parenchymal scarring
HTN
HLD
DM2
CKD 4
h/o Henoch-Schonlein purpura
Glaucoma
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
h/o gastric bypass 2010
h/o angioedema on ZAY inhibitors
Aortic atherosclerosis
h/o orthostasis on Terazosin
h/o TIA 2016
Iron deficiency anemia
Echo 08/06/2020: EF 64%. Mild LVH. Normal RV. Mild MAC with mild MR. No AI or . Trace TR. PAP 29 mmHg
Echo 01/19/2021: EF 55-60%, stage I diastolic dysfunction, trace MR, trace TR, PAP 21 mmHg
Echo 10/29/2024: EF 40-45%, Stage I diastolic dysfunction, mild inferolateral and inferior hypokinesis
Echo 11/14/2024: EF 50 to 55%. No significant valvular disease. No pericardial effusion.
Cardiac cath 11/01/2024: Left main 60% distal. LAD 40% ostial. Circumflex: Hazy 80% ostial, stents in OM1 with moderate diffuse ISR, smaller daughter branch of OM1 with 70% stenosis. RCA 60 to 70% ostial stenosis
Cardiac cath 11/14/2024: Successful complex percutaneous coronary artery intervention with one 3.0 x 22 mm Medtronics [place] drug-eluting stent from distal left main into left circumflex artery/OM1 and a second 2.75 x 18 mm Medtronic [place] drug-eluting
stent from distal left main into proximal LAD
Plan:
-Presents 11/26/2024 w/ sudden onset SOB. Found to be hypoxic by EMS and hypertensive. Chest x-ray consistent with acute pulmonary edema.
Acute on chronic HFpEF, proBNP 31223
Continue IV lasix diuresis with transition to likely 40 mg daily November 28
Wt is back down to her last dry wt and her edema is improved.
LFTs much improved with diuresis
Cr stable, cont to monitor cr closely with hx of CRI
Cont medical therapy for nonMI troponin.
Recent NSTEMI October 2024. Found to have multivessel coronary artery disease and was deemed poor surgical candidate. Ultimately, underwent complex PCI of the left main into LCx and left main into LAD as noted above 11/14/2024.
Continue GDMT Toprol, aspirin, Plavix, atorvastatin and Zetia
Could consider addition of SGLT2 inhibitor given CKD, heart failure and CAD, although patient on insulin for diabetes so blood sugars would need to be monitored closely
During recent admission most antihypertensive agents were discontinued due to hypotension.
Chronic anemia.
H/H stable.
Hemoglobin improved and stable
Continue iron supplementation
Type 2 diabetes, treatment per primary service. Patient is on insulin
HPI 11/26/2024
Patient is a 74 year old female with PMH of CAD, PAD, HFpEF, HTN, HLD, DM2, CKD, iron deficiency anemia, and glaucoma. Presented 11/26/2024 to [facility] ED with sudden onset shortness of breath and cough. She was recently admitted in early October 2024 with
chest pain and shortness of breath. She was found to be in acute heart failure with newly reduced ejection fraction and ruled in for NSTEMI with newly reduced ejection fraction and ultimately complex drug-eluting stent placement to distal left main
into left circumflex/OM M distal left main into proximal LAD. Hospitalization was complicated by contrast nephropathy with underlying CKD. Therefore she was not discharged on diuretic.
Last night, after dinner she reported sudden onset of acute shortness of breath while trying to fall asleep. She was unable to lie flat and continued to have difficulty with breathing even with sitting up. Due to worsening of symptoms EMS was
called. Patient was found to be hypoxic with pulse ox of 85% on room air. She was placed on nonrebreather and given albuterol treatment. On arrival to ER, she was noted to be hypertensive (186/85). Chest x-ray consistent with pulmonary edema.
proBNP found to be 13,700 which was higher than prior admission. Initial and peak troponin of 0.075 which was lower than previous admission. EKG demonstrated sinus rhythm with nonspecific ST-T wave abnormality. She was given IV Lasix and
symptomatically has been improving. At time of this evaluation patient sitting in bed wearing 2 L of oxygen. Still feels somewhat short of breath and not back to baseline. Complains of lower extremity edema but denies abdominal bloating, chest
pain or palpitations
Progress Note - Lens Assorter
Subjective
Date of Service: November 27, 2024
Pt seen and examined. No complaints. Breathing improved
Objective
Labs:
11/27/24 06:02
11/27/24 06:02
Labs
Hgb 8.4 g/dL (12.0-16.0) L 11/27/24 06:02
Hct 27.4 % (37.0-47.0) L 11/27/24 06:02
Plt Count 145 10^3/uL (130-400) 11/27/24 06:02
Sodium 142 mmol/L (135-145) 11/27/24 06:02
Potassium 4.0 mmol/L (3.5-5.1) 11/27/24 06:02
BUN 38 mg/dl (7-17) H 11/27/24 06:02
Creatinine 2.0 mg/dL (0.6-1.0) H 11/27/24 06:02
Glucose 119 mg/dl (70-99) H 11/27/24 06:02
Troponins
11/26/24 11/26/24 11/26/24
03:30 10:16 16:23
Troponin I 0.075 H* 0.070 H* 0.071 H*
11/26/24
22:13
Troponin I 0.065 H*
Vital Signs and I&O:
Vital Signs
Temp Pulse Resp BP Pulse Ox
97.8 F 59 18 136/49 96
11/27/24 11:04 11/27/24 11:04 11/27/24 11:04 11/27/24 11:04 11/27/24 11:04
Vital Signs
Temp Pulse Resp BP Pulse Ox
97.8 F 59 18 136/49 96
11/27/24 11:04 11/27/24 11:04 11/27/24 11:04 11/27/24 11:04 11/27/24 11:04
Intake & Output
11/25/24 11/26/24 11/27/24 11/28/24
06:59 06:59 06:59 06:59
Intake Total 240 / 240
Output Total 200 / 200
Balance 40 / 40
Physical Exam
Physical Exam
General: No acute distress, AAOX3
Neck: Negative JVD
Heart: Regular, Negative S3 positive S1/S2, Negative S4, No murmur
Lungs: CTA b/l, negative wheezes/rales/rhonchi
Abd: Positive BS, NT/ND, neg rebound/rigidity/guarding
Ext: Negative cyanosis/clubbing/edema
Neuro: nonfocal
--- NOTE | 2024-11-27 13:59 | W.PN.HOSP.TC ---
Today's Communication/Plan
-
Monitor vital signs see plan
Continue with IV diuresis
Monitor renal function
Assessment / Plan
Assessment / Plan
General: Other (74y F in no acute distress.)
HEENT: Moist mucous membranes, PERRLA
Respiratory: Other (Diffuse rales. No wheezing.)
Cardiac: S1/S2 and Regular Rhythm; No Murmur
GI: Soft, Non Tender, Non Distended and Normal Bowel Sounds
Musculoskeletal: No Clubbing, No Cyanosis and Other (2+ L pedal edema. 1+ R LE edema.)
Neuro: AO x 3
Acute on Chronic HFpEF
Acute Hypoxemic Respiratory Failure secondary to the above
- Admit for further evaluation and treatment.
- CXR, BNP appear worse than prior admission.
- New weight gain and LE edema
Continue with daily Lasix for now
- Follow I/Os, daily weights, etc.
- Monitor closely for changes in renal function, etc (see below).
- Cardiology following
ASCVD
- s/p high-risk coronary intervention during prior admission.
- No chest pain.
Suspect nonischemic myocardial injury
- Continue current CV med regimen including DAPT, statin, etc.
Benign Hypertension
- Continue current med regimen and adjust as needed for adequate BP control.
CKD IV
Metabolic Acidosis
- Stable. Renal function appears somewhat better than recent baseline.
- Follow for changes with diuresis.
- Continue bicarb supplementation.
Elevated LFTs
Monitor
No abdominal pain
DM-II
- Stable. Continue basal insulin.
- Follow glucose and cover with SSI as needed.
- A1C last month was 11.8.
- Adjust regimen as needed for improved control.
ILD
- Patient reports history of interstitial lung disease s/p severe COVID pneumonia.
- Follow for any new / worsening dyspnea despite diuresis.
Anemia of Chronic Disease
- Stable / Improved from prior.
- Continue iron supplementation.
- Follow for changes.
DVT Prophylaxis: Subcut heparin
Code Status: Full
Anticipated Discharge: 24 - 48 hours
Subjective/Interval History
-
Date of Service: November 27, 2024
Denies pain
Objective Data
-
Labs:
Laboratory Results
11/27/24
06:02
WBC 5.0
Hgb 8.4 L
Hct 27.4 L
Plt Count 145
Sodium 142
Potassium 4.0
Chloride 109 H
Carbon Dioxide 24
BUN 38 H
Creatinine 2.0 H
Glucose 119 H
Calcium 7.7 L
Total Bilirubin 0.4
AST 23
ALT 39 H
Alkaline Phosphatase 127 H
Vital Signs:
Vital Signs
Temp Pulse Resp BP Pulse Ox
97.8 F 59 18 136/49 96
11/27/24 11:04 11/27/24 11:04 11/27/24 11:04 11/27/24 11:04 11/27/24 11:04
I&O
11/26/24 11/27/24 11/28/24
06:59 06:59 06:59
Intake Total 240 / 240
Output Total 200 / 200
Balance 40 / 40
[2024-11-27 14:29] VITALS: BMI 30.7
[2024-11-27 15:16] VITALS: BP 133/61
[2024-11-27 16:13] LABS: Glucose - Point of Care 180 mg/dl (70-99)
[2024-11-27] MEDS: LIPITOR 80 MG PO (16:59)
[2024-11-27 19:15] VITALS: BP 117/51
[2024-11-27] MEDS: TYLENOL 650 MG PO (19:23)
[2024-11-27] MEDS: LYRICA 300 MG PO (19:23)
[2024-11-27 21:34] LABS: Glucose - Point of Care 205 mg/dl (70-99)
[2024-11-27 23:22] VITALS: BP 119/54
[2024-11-28 03:28] VITALS: BP 124/50
[2024-11-28 06:00] VITALS: BMI 24.8
[2024-11-28 06:50] LABS: % Basophils 0.9 % (0-2); % Eosinophils 9.4 % (0-6); % Immature Granulocytes 0.3 % (0-0.5); % Lymphocytes 25.9 % (20.5-51.1); % Monocytes 10.2 % (1.7-9.3); % Neutrophils 53.3 % (42.2-75.2); Absolute Basophils 0.1 10^3/uL (0-0.2); Absolute Eosinophils 0.6 10^3/uL (0-0.7); Absolute Lymphocytes 1.5 10^3/uL (1.2-3.4); Absolute Monocytes 0.6 10^3/uL (0.1-0.6); Absolute Neutrophils 3.1 10^3/uL (1.4-6.5); Hematocrit 27.5 % (37.0-47.0); Hemoglobin 8.5 g/dL (12.0-16.0); Mean Corp Hgb Conc. 30.9 g/dL (33.0-37.0); Mean Corpuscular Hgb 28.5 pg (27.0-31.0); Mean Corpuscular Volume 92.3 fL (81.0-99.0); Mean Platelet Volume 13.7 fL (7.4-10.4); Nucleated Red Blood Cells % 0 %; Platelet Count 144 10^3/uL (130-400); Red Blood Cell Count 2.98 10^6/uL (4.20-5.40); Red Cell Dist. Width 16.9 % (11.5-14.5); White Blood Cell Count 5.9 10^3/uL (4.8-10.8)
[2024-11-28 06:57] LABS: ALT (SGPT) 37 U/L (0-35); AST (SGOT) 27 U/L (14-36); Albumin 3.2 g/dl (3.5-5.0); Alkaline Phosphatase 125 U/L (38-126); Blood Urea Nitrogen 39 mg/dl (7-17); Calcium 7.9 mg/dl (8.4-10.2); Carbon Dioxide 26 mmol/L (22-30); Chloride 109 mmol/L (98-107); Estimated Creatinine Clearance 19 ml/min; Glucose 116 mg/dl (70-99); Potassium 3.8 mmol/L (3.5-5.1); Sodium 142 mmol/L (135-145); Total Bilirubin 0.4 mg/dl (0.2-1.3); Total Protein 5.1 g/dl (6.3-8.2); eGFR 25.73
[2024-11-28 07:27] LABS: Glucose - Point of Care 113 mg/dl (70-99)
[2024-11-28] MEDS: NOVOLOG FLEXPEN-MODERATE RESISTANCE SC (07:44)
[2024-11-28] MEDS: LANTUS 0.1 UNITS SC (07:57)
[2024-11-28] MEDS: LASIX 40 MG IV (07:59)
[2024-11-28] MEDS: LOW STRENGTH ASPIRIN 81 MG PO (08:00)
[2024-11-28] MEDS: FEOSOL 325 MG PO (08:00)
[2024-11-28] MEDS: TOPROL XL 25 MG PO (08:00)
[2024-11-28] MEDS: PLAVIX 75 MG PO (08:00)
[2024-11-28] MEDS: PROTONIX 40 MG PO (08:00)
[2024-11-28] MEDS: HEPARIN 5000 UNITS SC (08:00)
[2024-11-28] MEDS: SODIUM BICARBONATE 650 MG PO (08:00)
[2024-11-28 08:23] VITALS: BP 128/51
--- NOTE | 2024-11-28 10:05 | W.PN.CARDCBS ---
Addendum entered and electronically signed by Dangelo Beavers MD 11/28/24 12:39:
I saw and examined the patient.
The [employer]CR[employer]OULDER or PA's note was reviewed and I agree with the note.
Comment: General: Well developed, well nourished in NAD.
Neck: Supple, no JVD, HJR, carotids +2 B/L, no bruits bilaterally.
Heart: Non displaced PMI, RRR, no murmurs, No S3, S4, no rubs.
Lungs: Scattered rhonchi
Extremities: No clubbing, cyanosis or edema bilaterally.
Neuro: Grossly nonfocal, awake, alert and oriented x3.
Stable cardiology status for discharge on Lasix 40 mg daily. Discussed with primary service. Follow-up arranged
Original Note:
Today's Communication / Plan
-
D/C to home today on Lasix 40 mg PO daily
Impression / Plan
-
PCP: Dr. Carlton
Ear Machine Operator: Dr. VICKY Danielson
Impression:
Presented with sudden onset SOB 11/26/2024
Pulmonary edema
Acute on chronic HFpEF, proBNP 63679
Elevated troponin, peak 0.075
Abnormal LFTs
CAD
NSTEMI, s/p complex MATT distal LM into LCx/OM1 3.0 x 22 mm Medtronics [place] drug-eluting stent and from distal LM into proximal LAD 2.75 x 18 mm Medtronic [place] drug-eluting stent 11/14/2024
s/p 2.5 mm Xience OM1 PCI 01/20/21
s/p Xience prox and overlapping previously placed distal OM-1 05/17/2019
s/p 2.5 mm Xience OM1 PCI 02/12/2019
Hyperglycemia
PAD
s/p R common femoral endarterectomy w/ patch angioplasty and covered R iliac stent 01/2024
s/p right SFA angioplasty and stent 04/2020
h/o COVID 19 w/ residual parenchymal scarring
HTN
HLD
DM2
CKD 4
h/o Henoch-Schonlein purpura
Glaucoma
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
h/o gastric bypass 2010
h/o angioedema on ZAY inhibitors
Aortic atherosclerosis
h/o orthostasis on Terazosin
h/o TIA 2016
Iron deficiency anemia
Echo 08/06/2020: EF 64%. Mild LVH. Normal RV. Mild MAC with mild MR. No AI or . Trace TR. PAP 29 mmHg
Echo 01/19/2021: EF 55-60%, stage I diastolic dysfunction, trace MR, trace TR, PAP 21 mmHg
Echo 10/29/2024: EF 40-45%, Stage I diastolic dysfunction, mild inferolateral and inferior hypokinesis
Echo 11/14/2024: EF 50 to 55%. No significant valvular disease. No pericardial effusion.
Cardiac cath 11/01/2024: Left main 60% distal. LAD 40% ostial. Circumflex: Hazy 80% ostial, stents in OM1 with moderate diffuse ISR, smaller daughter branch of OM1 with 70% stenosis. RCA 60 to 70% ostial stenosis
Cardiac cath 11/14/2024: Successful complex percutaneous coronary artery intervention with one 3.0 x 22 mm Medtronics [place] drug-eluting stent from distal left main into left circumflex artery/OM1 and a second 2.75 x 18 mm Medtronic [place] drug-eluting
stent from distal left main into proximal LAD
Plan:
-Weight is down 2 lbs overnight and patient reports symptomatic improvement in LE edema and SOB. Patient diuresed with Lasix 40 mg IV daily and was not taking a daily diuretic just prior to this admission. Patient's Lasix PO dose was held after her
d/c to home following her complex PCI 11/14/24 due to JESI on CKD.
-Patient was given Lasix 40 mg IV on 11/28/24 AM, will switch to Lasix 40 mg PO daily starting in AM and so patient can likely be d/c'd to home 11/28/24. Will TT to hospitalist attending
-EF 50 to 55% by echo 11/14/2024. No significant valve disease
-Outpatient dose of Toprol-XL 25 mg daily has been continued
-Patient was previously taking spironolactone 25 mg daily, but this has been on hold following complex PCI 11/14/2024 and we will not restart at this time, but consider restarting as an outpatient in the future if labs remain stable.
-Patient is allergic to ZAY, she had angioedema. Will not add ARB/ARNI due to JESI on CKD 4
-Patient is on chronically on an SGLT2 inhibitor and would not start due to CKD 4
-Outpatient doses of aspirin and Plavix have been continued following complex PCI 11/14/2024
-Initial troponin 0.075 and trending down thereafter. No chest pain. Will manage as a nonischemic myocardial injury troponin elevation
-Likely d/c to home 11/28/24
HPI 11/26/2024
Patient is a 74 year old female with PMH of CAD, PAD, HFpEF, HTN, HLD, DM2, CKD, iron deficiency anemia, and glaucoma. Presented 11/26/2024 to [facility] ED with sudden onset shortness of breath and cough. She was recently admitted in early October 2024 with
chest pain and shortness of breath. She was found to be in acute heart failure with newly reduced ejection fraction and ruled in for NSTEMI with newly reduced ejection fraction and ultimately complex drug-eluting stent placement to distal left main
into left circumflex/OM M distal left main into proximal LAD. Hospitalization was complicated by contrast nephropathy with underlying CKD. Therefore she was not discharged on diuretic.
Last night, after dinner she reported sudden onset of acute shortness of breath while trying to fall asleep. She was unable to lie flat and continued to have difficulty with breathing even with sitting up. Due to worsening of symptoms EMS was
called. Patient was found to be hypoxic with pulse ox of 85% on room air. She was placed on nonrebreather and given albuterol treatment. On arrival to ER, she was noted to be hypertensive (186/85). Chest x-ray consistent with pulmonary edema.
proBNP found to be 13,700 which was higher than prior admission. Initial and peak troponin of 0.075 which was lower than previous admission. EKG demonstrated sinus rhythm with nonspecific ST-T wave abnormality. She was given IV Lasix and
symptomatically has been improving. At time of this evaluation patient sitting in bed wearing 2 L of oxygen. Still feels somewhat short of breath and not back to baseline. Complains of lower extremity edema but denies abdominal bloating, chest
pain or palpitations
Progress Note - Ear Machine Operator
Subjective
Date of Service: November 28, 2024
She feels well and wants to go home
Objective
Labs:
11/28/24 05:30
11/28/24 05:30
Labs
Hgb 8.5 g/dL (12.0-16.0) L 11/28/24 05:30
Hct 27.5 % (37.0-47.0) L 11/28/24 05:30
Plt Count 144 10^3/uL (130-400) 11/28/24 05:30
Sodium 142 mmol/L (135-145) 11/28/24 05:30
Potassium 3.8 mmol/L (3.5-5.1) 11/28/24 05:30
BUN 39 mg/dl (7-17) H 11/28/24 05:30
Creatinine 2.0 mg/dL (0.6-1.0) H 11/28/24 05:30
Glucose 116 mg/dl (70-99) H 11/28/24 05:30
Troponins
11/26/24 11/26/24 11/26/24
03:30 10:16 16:23
Troponin I 0.075 H* 0.070 H* 0.071 H*
11/26/24
22:13
Troponin I 0.065 H*
Vital Signs and I&O:
Vital Signs
Temp Pulse Resp BP Pulse Ox
97.8 F 56 18 128/51 99
11/28/24 08:23 11/28/24 08:23 11/28/24 08:23 11/28/24 08:23 11/28/24 08:23
Vital Signs
Temp Pulse Resp BP Pulse Ox
97.8 F 56 18 128/51 99
11/28/24 08:23 11/28/24 08:23 11/28/24 08:23 11/28/24 08:23 11/28/24 08:23
Intake & Output
11/26/24 11/27/24 11/28/24 11/29/24
06:59 06:59 06:59 06:59
Intake Total 240 / 240 720 / 720
Output Total 200 / 200 300 / 300
Balance 40 / 40 420 / 420
Physical Exam
Physical Exam
GEN: AAOx3
HEENT: MMM, wearing glasses
LUNGS: RA
CV: SR on tele.
ABD: ND
EXT: No edema B/L LE
NEURO: Gross non-focal
SKIN: No rash
--- NOTE | 2024-11-28 10:57 | W.PN.HOSP.TC ---
Addendum entered and electronically signed by Scar Isabel MD 11/28/24 11:29:
Discussed with cardiology, transition to 40 mg p.o. daily Lasix
Discharge today
Time of discharge 38 minutes
Original Note:
Today's Communication/Plan
-
monitor vitals
see plan
diuresis per cards
hopeful transition to PO lasix today
Assessment / Plan
Assessment / Plan
General: Other (74y F in no acute distress.)
HEENT: Moist mucous membranes, PERRLA
Respiratory: Other (Diffuse rales. No wheezing.)
Cardiac: S1/S2 and Regular Rhythm; No Murmur
GI: Soft, Non Tender, Non Distended and Normal Bowel Sounds
Musculoskeletal: No Clubbing, No Cyanosis and Other (2+ L pedal edema. 1+ R LE edema.)
Neuro: AO x 3
Acute on Chronic HFpEF
Acute Hypoxemic Respiratory Failure secondary to the above
- CXR, BNP appear worse than prior admission.
- New weight gain and LE edema
Continue with daily Lasix for now; likely can be transition to p.o. Lasix. Defer to cardiology
- Follow I/Os, daily weights, etc.
- Cardiology following
ASCVD
- s/p high-risk coronary intervention during prior admission.
- No chest pain.
Suspect nonischemic myocardial injury
- Continue current CV med regimen including DAPT, statin, etc.
Benign Hypertension
- Continue current med regimen and adjust as needed for adequate BP control.
CKD IV
Metabolic Acidosis
- Stable. Renal function appears somewhat better than recent baseline.
- Follow for changes with diuresis.
- Continue bicarb supplementation.
Elevated LFTs
Monitor
No abdominal pain
DM-II
- Stable. Continue basal insulin.
- Follow glucose and cover with SSI as needed.
- A1C last month was 11.8.
- Adjust regimen as needed for improved control.
ILD
- Patient reports history of interstitial lung disease s/p severe COVID pneumonia.
- Follow for any new / worsening dyspnea despite diuresis.
Anemia of Chronic Disease
- Stable / Improved from prior.
- Continue iron supplementation.
- Follow for changes.
DVT Prophylaxis: Subcut heparin
Code Status: Full
Anticipated Discharge: Today
Subjective/Interval History
-
Date of Service: November 28, 2024
denies pain
Objective Data
-
Labs:
Laboratory Results
11/28/24
05:30
WBC 5.9
Hgb 8.5 L
Hct 27.5 L
Plt Count 144
Sodium 142
Potassium 3.8
Chloride 109 H
Carbon Dioxide 26
BUN 39 H
Creatinine 2.0 H
Glucose 116 H
Calcium 7.9 L
Total Bilirubin 0.4
AST 27
ALT 37 H
Alkaline Phosphatase 125
Vital Signs:
Vital Signs
Temp Pulse Resp BP Pulse Ox
97.8 F 56 18 128/51 99
11/28/24 08:23 11/28/24 08:23 11/28/24 08:23 11/28/24 08:23 11/28/24 10:01
I&O
11/27/24 11/28/24 11/29/24
06:59 06:59 06:59
Intake Total 240 / 240 720 / 720
Output Total 200 / 200 300 / 300
Balance 40 / 40 420 / 420
--- NOTE | 2024-11-28 11:29 | W.DCSUMMARY ---
Discharge Summary
Discharge Data
Date of Admission: 11/26/24
Date of Discharge: 11/28/24
-
Pending Results: No
Hospital Course
74-year-old female with past medical history of CHF, hypertension, CKD stage IV, diabetes mellitus, ILD, anemia of chronic disease came to the hospital with acute hypoxemic respiratory failure secondary to acute on chronic congestive heart failure
exacerbation. Patient was initially started on IV Lasix which was later transitioned to p.o. Lasix prior to discharge. Patient was seen by cardiology throughout hospitalization. Patient troponin was also initially elevated which was likely
thought was secondary to nonischemic myocardial injury from congestive heart failure. Once patient's symptoms continue to improve, she was then discharged home with instructions to follow-up with all her physicians outpatient.
Discharge Plan
-
Patient Disposition: Home with Home Care
Discharge Diagnosis/Procedures: Acute on chronic heart failure with preserved ejection fraction
Nonischemic myocardial injury
Chronic kidney disease
Condition: Fair
Diet: As tolerated, 2 Gram Sodium and Restrict fluids to 64 oz
Activity: As tolerated
Driving Restrictions: As prior to admission
Bathing Restrictions: None
Blood Work: BMP next week with primary care provider
Other Services: VN
Specialty Instructions: Weigh Daily- Call MD for wt gain/loss 3 lbs overnight/5 lbs in 1 week
Referrals:
Joaquin Carlton MD [Family Provider, Internal Medicine] - in less than 1 week
Melvin Danielson MD [Active, Cardiology] - 12/07/24 4:00 pm
Referral Note: You have an appointment to see Dr. Danielson nurse practitioner, Alison, at the [place] office on 12/07/2024 at 4 PM. Please call [phone] if you need to reschedule
Additional Discharge Medication Instructions: -Start taking Lasix (furosemide) 40 mg once a day
Prescriptions:
New
furosemide [Lasix] 40 mg tablet
40 mg PO DAILY Qty: 30 11RF
Continued
sodium bicarbonate 650 mg Tablet
650 mg PO BID
cholecalciferol (vitamin D3) [Vitamin D3] 50 mcg (2,000 unit) Tablet
50 mcg PO DAILY
coQ10 (ubiquinol) 200 mg Capsule
400 mg PO DAILY
atorvastatin 80 mg tablet
80 mg PO QPM
pregabalin 150 mg capsule
300 mg PO HS
tramadol 50 mg Tablet
50 mg PO Q6HPRN PRN (Reason: moderate pains)
pantoprazole [Protonix] 40 mg Tablet,Delayed Release (Dr/Ec)
40 mg PO DAILY
ferrous sulfate [FeroSul] 325 mg (65 mg iron) Tablet
325 mg PO DAILY 30 Days Qty: 30 0RF
aspirin 81 mg Tablet,Chewable
81 mg PO DAILY 30 Days Qty: 30 0RF
metoprolol succinate 25 mg Tablet Extended Release 24 Hr
25 mg PO DAILY 30 Days Qty: 30 0RF
insulin aspart U-100 [Novolog FlexPen U-100 Insulin] 100 unit/mL (3 mL) Insulin Pen
5 unit SC AC Qty: 5 0RF
Rx Instructions:
TAKE BEFORE BREAKFAST AND LUNCH; NOT AT DINNER
clopidogrel [Plavix] 75 mg Tablet
75 mg PO DAILY
ezetimibe 10 mg Tablet
10 mg PO DAILY Qty: 0 0RF
febuxostat 40 mg Tablet
40 mg PO HS Qty: 0 0RF
Patient Comments:
once patient runs out of this medication, she is to start allopurinol
Changed
insulin glargine [Basaglar KwikPen U-100 Insulin] 100 unit/mL (3 mL) insulin pen
10 unit SC DAILY@0700 Qty: 0 0RF
Discharge Orders:
Discharge Patient (As Directed); Ordered 11/28/24
Ordered By: Scar Isabel
Discharge Date and Time
Discharge Date/Time: 11/28/24 12:59
Print Language: TURKISH
[2024-11-28 11:32] VITALS: BP 157/69
[2024-11-28 11:59] LABS: Glucose - Point of Care 199 mg/dl (70-99)
[2024-11-28 12:46] VITALS: O2SAT 96
--- NOTE | 2024-11-28 12:56 | CM ---
Patient with Dx HF. Room air. PT recommended HH.
Attempted to meet with patient who was already discharged to home today.
Spoke with patient's son Dangelo; he confirmed he transported his mother home today, and was at home. He is aware that [facility] will resume service. He denies any other d/c needs.
Plan home today with [facility].
== END 2024-11-28 12:59 | disposition home health service (06) | DRG 291 ==
LOC: 4 EAST ACU 05:29
PROVIDERS: ADMITTING PHYSICIAN Hospitalist; ATTENDING PHYSICIAN Internal Medicine; EMERGENCY PHYSICIAN Emergency Medicine; FAMILY PHYSICIAN Internal Medicine; OTHER PHYSICIAN Internal Medicine Cardiovascular Disease
DX: I13.0 Hypertensive heart and chronic kidney disease with heart failure and stage 1 through stage 4 chronic kidney disease, or unspecified chronic kidney disease (principal); I50.33 Acute on chronic diastolic (congestive) heart failure; J96.01 Acute respiratory failure with hypoxia; N18.4 Chronic kidney disease, stage 4 (severe); J84.9 Interstitial pulmonary disease, unspecified; E87.20 Acidosis, unspecified; I5A Non-ischemic myocardial injury (non-traumatic); E11.22 Type 2 diabetes mellitus with diabetic chronic kidney disease; D63.8 Anemia in other chronic diseases classified elsewhere; I25.10 Atherosclerotic heart disease of native coronary artery without angina pectoris; U09.9 Post COVID-19 condition, unspecified; Z79.899 Other long term (current) drug therapy; Z79.82 Long term (current) use of aspirin; Z79.02 Long term (current) use of antithrombotics/antiplatelets; Z79.4 Long term (current) use of insulin; I25.2 Old myocardial infarction
CPT/HCPCS: 71046; 80048; 80053; 80076; 82962; 83880; 84132; 84484; 85025; 93005; 96374; 97116; 97162; 97530; 99285

== ENCOUNTER → 2024-12-11 12:25 | Outpatient (REF) | payer MEDICARE, OTHER, SELFPAY ==
[2024-12-11 13:32] LABS: % Basophils 1.1 % (0-2); % Eosinophils 7.6 % (0-6); % Immature Granulocytes 0.2 % (0-0.5); % Lymphocytes 27.4 % (20.5-51.1); % Monocytes 7.9 % (1.7-9.3); % Neutrophils 55.8 % (42.2-75.2); Absolute Basophils 0.1 10^3/uL (0-0.2); Absolute Eosinophils 0.5 10^3/uL (0-0.7); Absolute Lymphocytes 1.7 10^3/uL (1.2-3.4); Absolute Monocytes 0.5 10^3/uL (0.1-0.6); Absolute Neutrophils 3.4 10^3/uL (1.4-6.5); Hematocrit 31.2 % (37.0-47.0); Hemoglobin 9.8 g/dL (12.0-16.0); Mean Corp Hgb Conc. 31.4 g/dL (33.0-37.0); Mean Corpuscular Hgb 28.1 pg (27.0-31.0); Mean Corpuscular Volume 89.4 fL (81.0-99.0); Mean Platelet Volume 13.5 fL (7.4-10.4); Nucleated Red Blood Cells % 0 %; Platelet Count 192 10^3/uL (130-400); Red Blood Cell Count 3.49 10^6/uL (4.20-5.40); Red Cell Dist. Width 15.1 % (11.5-14.5); White Blood Cell Count 6.2 10^3/uL (4.8-10.8)
[2024-12-11 13:50] LABS: ALT (SGPT) 39 U/L (0-35); AST (SGOT) 30 U/L (14-36); Albumin 4.2 g/dl (3.5-5.0); Alkaline Phosphatase 139 U/L (38-126); Blood Urea Nitrogen 59 mg/dl (7-17); Calcium 9.2 mg/dl (8.4-10.2); Carbon Dioxide 27 mmol/L (22-30); Chloride 102 mmol/L (98-107); Glucose 334 mg/dl (70-99); HDL Cholesterol 60 mg/dl; LDL Cholesterol, Calculated 76 mg/dl; Potassium 4.8 mmol/L (3.5-5.1); Sodium 139 mmol/L (135-145); Total Bilirubin 0.5 mg/dl (0.2-1.3); Total Cholesterol 154 mg/dl (50-199); Total Protein 6.5 g/dl (6.3-8.2); Triglyceride 93 mg/dl (10-149); Very Low Density Lipoprotein 18 mg/dl (0-30)
[2024-12-11 13:51] LABS: NT-proBNP 12600 pg/ml
[2024-12-11 13:59] LABS: eGFR 21.76
[2024-12-11 14:16] LABS: Glycohemoglobin (HgbA1c) 9.4 % (4.0-5.6)
== END ==
LOC: REG 12:25
PROVIDERS: ATTENDING PHYSICIAN Nurse Practitioner; FAMILY PHYSICIAN Internal Medicine; OTHER PHYSICIAN Internal Medicine Cardiovascular Disease; OTHER PHYSICIAN Specialist
DX: I10 Essential (primary) hypertension (principal); E11.59 Type 2 diabetes mellitus with other circulatory complications; Z79.4 Long term (current) use of insulin; E78.5 Hyperlipidemia, unspecified; I25.10 Atherosclerotic heart disease of native coronary artery without angina pectoris; N18.4 Chronic kidney disease, stage 4 (severe)
CPT/HCPCS: 36415; 80053; 80061; 83036; 83880; 85025

== ENCOUNTER 2024-12-18 16:41 | Outpatient (RCR) | payer MEDICARE, OTHER, SELFPAY | END 2024-12-18 23:59 | disposition home or self-care (01) | LOC: CRHB 16:41 | PROVIDERS: ATTENDING PHYSICIAN Internal Medicine Cardiovascular Disease | DX: I25.10 Atherosclerotic heart disease of native coronary artery without angina pectoris (principal); Z95.5 Presence of coronary angioplasty implant and graft | CPT/HCPCS: G0422; G0423 ==

== ENCOUNTER 2024-12-20 23:28 | Emergency (ER) | payer MEDICARE, OTHER, SELFPAY ==
[2024-12-20 23:32] VITALS: BP 213/106
--- NOTE | 2024-12-21 00:31 | ED.GENMED ---
History of Present Illness
General
Chief Complaint: Breathing Problem
Source: patient
Time Seen by Provider: 12/21/24 00:23
History of Present Illness
History of Present Illness:
74-year-old female presents to the emergency room complaining of increased shortness of breath. Patient began feeling short breath about 2 hours prior to arrival. Patient has significant cardiac history including CHF, coronary artery disease with
multiple stents. She had complex stenting of the left main and LAD in October. Patient also has history of interstitial lung disease. Patient has been taking her medications as instructed. She is currently on 40 of Lasix once a day. Patient does
monitor her weight carefully on a daily basis. Normally she is 133. The today she was 135.
Past History
Past History
ED Past Medical History: CAD, GERD, HTN, Hypercholesterolemia, IDDM and Other (COVID-19, anemia, peripheral vascular disease, chronic kidney disease, celiac artery dissection, anemia, HSP)
ED Past Surgical History: Cardiac
Social History
Tobacco: Non-smoker
Alcohol: Occasional
Drug: None
Personal:
Living: with family
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
Family History
Family History: Other (Father with CAD, mother with diabetes)
Phy Exam
Physical Exam
Physical Exam:
General: Awake, Alert, Oriented X3. No acute respiratory distress. Appears chronically ill
Vitals: unremarkable
Head: Atraumatic
Eyes: Pupils equal, EOMI
Throat: Airway intact, no exudates
Neck: Trachea midline
Lungs: Crackles bilateral lower lung field
Heart: Regular rate, no murmurs
Abd: Soft, Nontender, No pulsatile mass
Neuro: Cranial nerves intact, muscle strength equal bilaterally, cerebellar exam normal
Skin: Warm, dry, no rash
Extremities: pulses equal b/l, 1+ edema
Scores
Heart Failure Risk
Heart Failure Risk Score: Yes
History of Stroke or TIA: Yes
History of intubation for respiratory distress: No
Heart rate on ED arrival >/= 110: No
SaO2 <90% on arrival on room air: No
HR >/=110 during 3min walk test (or too ill to perform test): No
ECG has acute ischemic changes: No
Urea >/=12mmol/L (BUN 33.6mg/dL): Yes
Serum CO2>/=35mmol/L: No
Troponin I or T elevated to DE Level (0.4mg/dL): No
NT-proBNP >/=5,000ng/L (5,000pg/ml): Yes
HF Risk Score: 3
Admission Status: HIGH RISK 15.9% Consider SNF treatment or admission to hospital
Course
Orders/Labs/Results
Orders:
Orders
12/20/24 23:37
EKG [Electrocardiogram (*1)] Urgent
Reason for Study: Shortness of Breath
EKG- Treatment ONCE
12/21/24 00:31
CR Chest - 2 Views Urgent
Comment:
Reason For Exam: shortness of breath
12/21/24 00:40
Basic Metabolic Panel Urgent
Complete Blood Count/With Diff Urgent
Magnesium Urgent
NT-proBNP Urgent
Abnormal Lab Results
12/21/24
00:40
RBC 3.75 L 10^6/uL
(4.20-5.40)
Hgb 10.4 L g/dL
(12.0-16.0)
Hct 32.3 L %
(37.0-47.0)
MCHC 32.2 L g/dL
(33.0-37.0)
RDW 14.9 H %
(11.5-14.5)
MPV 12.8 H fL
(7.4-10.4)
Absolute Monos (auto) 0.8 H 10^3/uL
(0.1-0.6)
Lymphocytes % 18.1 L %
(20.5-51.1)
Monocytes % 10.0 H %
(1.7-9.3)
Eosinophils % 8.1 H %
(0-6)
BUN 78 H mg/dl
(7-17)
Creatinine 2.6 H mg/dL
(0.6-1.0)
Glucose 208 H mg/dl
(70-99)
12/21/24 00:40
12/21/24 00:40
Vital Signs
Initial and Last Documented VS:
Initial Vital Signs
Temp Pulse Resp BP Pulse Ox
98.5 F 83 24 213/106 97
12/20/24 23:32 12/20/24 23:32 12/20/24 23:32 12/20/24 23:32 12/20/24 23:32
Last Documented Vital Signs
Temp Pulse Resp BP Pulse Ox
98.5 F 68 16 180/78 99
12/20/24 23:32 12/21/24 01:45 12/21/24 01:45 12/21/24 01:40 12/21/24 01:45
MDM/Problems Addressed
Differential Diagnosis Includes:
Exacerbation of heart failure, symptomatic anemia,
MDM/Problems Addressed:
Patient's chest x-ray looks better than previous. Her BNP is the same as previous presentation. Labs show her BUN and creatinine are elevated compared to previous measurements. Patient states that she is essentially back to baseline here. She
came in because she was feeling a little nervous more than anything else. She does not have any shortness of breath at this time. Patient stable for discharge home and close outpatient follow-up. Recommend she call Dr. Danielson if her weight
increases tomorrow
*Radiology
Radiology exam reviewed: preliminary read by ED provider (No effusion, no significant pulmonary edema)
*Pulse Oximetry
SaO2: 97
Oxygen Mode of Delivery: Room air
Patient hypoxic: no
*EKG
Interpreted by ED Provider?: Yes
Heart Rate: 83
Rate: normal
Rhythm: sinus
[place]: normal axis
Interval: normal interval
QRS Pattern: normal QRS
Ischemia: non-specific ST changes
*Palliative Nurse Interpretation
Rate: normal
Interpretation: normal
Heart Rate: 83
Rhythm: sinus
*Critical Care Note
Total Time (30-74mins, 75-104mins- exclusive of procedures): Not Applicable
ED Attending Note
-
Portions of this chart may have been created with voice recognition software.� Occasional wrong word or��sound alike� substitutions may have occurred due to the inherent limitations of voice recognition software.
Discharge Plan
Departure
Patient Disposition: Home (Routine Discharge)
Date of Disposition: 12/21/24
Time of Disposition: 01:40
Patient with high blood pressure during this ER visit?: No
Condition: Good
Discharge Problem:
Dyspnea
Instructions: Shortness of Breath (Dyspnea) (DC)
Prescriptions:
No Action
sodium bicarbonate 650 mg Tablet
650 mg PO BID
cholecalciferol (vitamin D3) [Vitamin D3] 50 mcg (2,000 unit) Tablet
50 mcg PO DAILY
coQ10 (ubiquinol) 200 mg Capsule
400 mg PO DAILY
atorvastatin 80 mg tablet
80 mg PO QPM
pregabalin 150 mg capsule
300 mg PO HS
tramadol 50 mg Tablet
50 mg PO Q6HPRN PRN (Reason: moderate pains)
pantoprazole [Protonix] 40 mg Tablet,Delayed Release (Dr/Ec)
40 mg PO DAILY
ferrous sulfate [FeroSul] 325 mg (65 mg iron) Tablet
325 mg PO DAILY 30 Days Qty: 30 0RF
aspirin 81 mg Tablet,Chewable
81 mg PO DAILY 30 Days Qty: 30 0RF
metoprolol succinate 25 mg Tablet Extended Release 24 Hr
25 mg PO DAILY 30 Days Qty: 30 0RF
insulin aspart U-100 [Novolog FlexPen U-100 Insulin] 100 unit/mL (3 mL) Insulin Pen
5 unit SC AC Qty: 5 0RF
Rx Instructions:
TAKE BEFORE BREAKFAST AND LUNCH; NOT AT DINNER
furosemide [Lasix] 40 mg tablet
40 mg PO DAILY Qty: 30 11RF
insulin glargine [Basaglar KwikPen U-100 Insulin] 100 unit/mL (3 mL) insulin pen
10 unit SC DAILY@0700 Qty: 0 0RF
clopidogrel [Plavix] 75 mg Tablet
75 mg PO DAILY
ezetimibe 10 mg Tablet
10 mg PO DAILY Qty: 0 0RF
febuxostat 40 mg Tablet
40 mg PO HS Qty: 0 0RF
Patient Comments:
once patient runs out of this medication, she is to start allopurinol
Referrals:
Joaquin Carlton MD [Family Provider, Internal Medicine]
Melvin Danielson MD [Active, Cardiology]
Activity Restrictions/Additional Instructions:
If your weight is up tomorrow call Dr. Danielson's office. Your blood work shows your creatinine is a 2.6. Because you are feeling better I feel it is best to not provide you with an extra dose of Lasix at this time. I would like to err on the side
of protecting your kidneys. However if symptoms return and you are gaining weight that you may need more Lasix at Dr. Danielson can help you with this. Your blood pressure was elevated when you arrived to the emergency room. Repeat blood pressures
are lower.
Interventions
Interventions:
*Risk Screen - Suicide Last Done: 12/20/24 23:32
*General Assessment Last Done: 12/21/24 00:46
*Neglect/Abuse Screening Last Done: 12/21/24 00:46
*ED- Fall Risk Assessment Last Done: 12/21/24 00:46
*ED COVID-19 Vaccine History Last Done: 12/21/24 00:46
*Nursing Disposition Last Done: 12/21/24 01:56
ED- Cardiac Assessment Last Done: 12/21/24 01:00
ED- Pulmonary Assessment Last Done: 12/21/24 01:00
Discharge Date and Time
Discharge Date/Time: 12/21/24 01:57
Print Language: SYRIAN
[2024-12-21 00:46] VITALS: BMI 26.7
[2024-12-21 01:05] LABS: Hematocrit 32.3 % (37.0-47.0); Hemoglobin 10.4 g/dL (12.0-16.0); Mean Corp Hgb Conc. 32.2 g/dL (33.0-37.0); Mean Corpuscular Hgb 27.7 pg (27.0-31.0); Mean Corpuscular Volume 86.1 fL (81.0-99.0); Mean Platelet Volume 12.8 fL (7.4-10.4); Platelet Count 184 10^3/uL (130-400); Red Blood Cell Count 3.75 10^6/uL (4.20-5.40); Red Cell Dist. Width 14.9 % (11.5-14.5); White Blood Cell Count 7.7 10^3/uL (4.8-10.8)
[2024-12-21 01:29] LABS: NT-proBNP 12600 pg/ml
[2024-12-21 01:30] LABS: Blood Urea Nitrogen 78 mg/dl (7-17); Calcium 8.7 mg/dl (8.4-10.2); Carbon Dioxide 22 mmol/L (22-30); Chloride 107 mmol/L (98-107); Estimated Creatinine Clearance 16 ml/min; Glucose 208 mg/dl (70-99); Magnesium 2.3 mg/dl (1.6-2.3); Sodium 140 mmol/L (135-145); eGFR 18.78
[2024-12-21 01:40] VITALS: BP 180/78
[2024-12-21 01:53] LABS: % Eosinophils 8.1 % (0-6); % Immature Granulocytes 0.3 % (0-0.5); % Lymphocytes 18.1 % (20.5-51.1); % Neutrophils 62.5 % (42.2-75.2); Absolute Basophils 0.1 10^3/uL (0-0.2); Absolute Eosinophils 0.6 10^3/uL (0-0.7); Absolute Lymphocytes 1.4 10^3/uL (1.2-3.4); Absolute Monocytes 0.8 10^3/uL (0.1-0.6); Absolute Neutrophils 4.8 10^3/uL (1.4-6.5); Nucleated Red Blood Cells % 0 %
== END 2024-12-21 01:57 | disposition home or self-care (01) ==
LOC: EMR 23:28
PROVIDERS: EMERGENCY PHYSICIAN Emergency Medicine; FAMILY PHYSICIAN Internal Medicine
DX: R06.00 Dyspnea, unspecified (principal); I25.10 Atherosclerotic heart disease of native coronary artery without angina pectoris; K21.9 Gastro-esophageal reflux disease without esophagitis; E78.00 Pure hypercholesterolemia, unspecified; I13.0 Hypertensive heart and chronic kidney disease with heart failure and stage 1 through stage 4 chronic kidney disease, or unspecified chronic kidney disease; I50.9 Heart failure, unspecified; E11.22 Type 2 diabetes mellitus with diabetic chronic kidney disease; N18.9 Chronic kidney disease, unspecified; E11.51 Type 2 diabetes mellitus with diabetic peripheral angiopathy without gangrene; Z79.899 Other long term (current) drug therapy; Z82.49 Family history of ischemic heart disease and other diseases of the circulatory system; Z83.3 Family history of diabetes mellitus; Z86.16 Personal history of COVID-19; Z95.5 Presence of coronary angioplasty implant and graft
CPT/HCPCS: 99283; 71046; 80048; 83735; 83880; 85025; 93005

== ENCOUNTER → 2024-12-24 10:45 | Outpatient (REF) | payer MEDICARE, OTHER, SELFPAY | LOC: WOUND 10:45 | PROVIDERS: ATTENDING PHYSICIAN Surgery; FAMILY PHYSICIAN Internal Medicine | DX: I70.244 Atherosclerosis of native arteries of left leg with ulceration of heel and midfoot (principal); I70.243 Atherosclerosis of native arteries of left leg with ulceration of ankle; L97.322 Non-pressure chronic ulcer of left ankle with fat layer exposed; I73.9 Peripheral vascular disease, unspecified; E11.65 Type 2 diabetes mellitus with hyperglycemia; N18.4 Chronic kidney disease, stage 4 (severe); E11.22 Type 2 diabetes mellitus with diabetic chronic kidney disease; Z79.4 Long term (current) use of insulin; Z91.199 Patient's noncompliance with other medical treatment and regimen due to unspecified reason; I25.10 Atherosclerotic heart disease of native coronary artery without angina pectoris | CPT/HCPCS: 99212 ==

== ENCOUNTER 2025-01-23 09:37 | Outpatient (RCR) | payer MEDICARE, OTHER, SELFPAY ==
[2024-12-27 08:42] LABS: Glucose - Point of Care 223 mg/dl (70-99)
[2024-12-27 09:21] LABS: Glucose - Point of Care 186 mg/dl (70-99)
[2024-12-31 09:27] LABS: Glucose - Point of Care 148 mg/dl (70-99)
[2024-12-31 10:09] LABS: Glucose - Point of Care 117 mg/dl (70-99)
[2025-01-02 09:21] LABS: Glucose - Point of Care 160 mg/dl (70-99)
[2025-01-02 10:05] LABS: Glucose - Point of Care 108 mg/dl (70-99)
[2025-01-07 09:34] LABS: Glucose - Point of Care 242 mg/dl (70-99)
[2025-01-07 10:21] LABS: Glucose - Point of Care 196 mg/dl (70-99)
[2025-01-14 09:39] LABS: Glucose - Point of Care 270 mg/dl (70-99)
[2025-01-14 10:25] LABS: Glucose - Point of Care 250 mg/dl (70-99)
[2025-01-21 09:39] LABS: Glucose - Point of Care 273 mg/dl (70-99)
[2025-01-21 10:21] LABS: Glucose - Point of Care 179 mg/dl (70-99)
[2025-01-23 09:20] LABS: Glucose - Point of Care 106 mg/dl (70-99)
[2025-01-23 09:42] LABS: Glucose - Point of Care 84 mg/dl (70-99)
[2025-01-23 09:59] LABS: Glucose - Point of Care 101 mg/dl (70-99)
== END 2025-01-23 23:59 | disposition home or self-care (01) ==
LOC: CRHB 09:37
PROVIDERS: ATTENDING PHYSICIAN Internal Medicine Cardiovascular Disease
DX: I25.10 Atherosclerotic heart disease of native coronary artery without angina pectoris (principal); Z95.5 Presence of coronary angioplasty implant and graft
CPT/HCPCS: 82962; G0422; G0423

== ENCOUNTER → 2025-02-07 13:40 | Outpatient (REF) | payer MEDICARE, OTHER, SELFPAY | LOC: RAD 13:40 | PROVIDERS: ATTENDING PHYSICIAN Surgery Vascular Surgery; FAMILY PHYSICIAN Internal Medicine | DX: I73.9 Peripheral vascular disease, unspecified (principal) | CPT/HCPCS: 93922; 93925 ==

== ENCOUNTER → 2025-02-11 10:23 | Outpatient (REF) | payer MEDICARE, OTHER, SELFPAY | LOC: WOUND 10:23 | PROVIDERS: ATTENDING PHYSICIAN Surgery | DX: I70.244 Atherosclerosis of native arteries of left leg with ulceration of heel and midfoot (principal); L97.322 Non-pressure chronic ulcer of left ankle with fat layer exposed; E11.65 Type 2 diabetes mellitus with hyperglycemia; N18.4 Chronic kidney disease, stage 4 (severe); I25.10 Atherosclerotic heart disease of native coronary artery without angina pectoris; E11.29 Type 2 diabetes mellitus with other diabetic kidney complication | CPT/HCPCS: 99213 ==

== ENCOUNTER → 2025-02-16 09:59 | Outpatient (REF) | payer MEDICARE, OTHER, SELFPAY | LOC: RAD 09:59 | PROVIDERS: ATTENDING PHYSICIAN Internal Medicine; REFERRING PHYSICIAN Surgery Vascular Surgery | DX: R26.89 Other abnormalities of gait and mobility (principal); Z91.81 History of falling; I67.9 Cerebrovascular disease, unspecified | CPT/HCPCS: 70450 ==

== ENCOUNTER 2025-02-22 09:49 | Outpatient (RCR) | payer MEDICARE, OTHER, SELFPAY ==
[2025-01-25 09:27] LABS: Glucose - Point of Care 345 mg/dl (70-99)
[2025-01-25 10:29] LABS: Glucose - Point of Care 317 mg/dl (70-99)
[2025-01-28 09:26] LABS: Glucose - Point of Care 270 mg/dl (70-99)
[2025-01-28 10:21] LABS: Glucose - Point of Care 198 mg/dl (70-99)
[2025-01-30 08:30] LABS: Glucose - Point of Care 153 mg/dl (70-99)
[2025-01-30 09:12] LABS: Glucose - Point of Care 130 mg/dl (70-99)
[2025-02-01 09:20] LABS: Glucose - Point of Care 252 mg/dl (70-99)
[2025-02-01 10:03] LABS: Glucose - Point of Care 259 mg/dl (70-99)
[2025-02-04 09:13] LABS: Glucose - Point of Care 348 mg/dl (70-99)
[2025-02-04 10:04] LABS: Glucose - Point of Care 297 mg/dl (70-99)
[2025-02-06 10:20] LABS: Glucose - Point of Care 230 mg/dl (70-99)
[2025-02-08 09:23] LABS: Glucose - Point of Care 276 mg/dl (70-99)
[2025-02-08 10:13] LABS: Glucose - Point of Care 226 mg/dl (70-99)
[2025-02-11 09:30] LABS: Glucose - Point of Care 170 mg/dl (70-99)
[2025-02-11 10:17] LABS: Glucose - Point of Care 171 mg/dl (70-99)
[2025-02-13 09:28] LABS: Glucose - Point of Care 228 mg/dl (70-99)
[2025-02-13 09:52] LABS: Glucose - Point of Care 275 mg/dl (70-99)
[2025-02-15 09:22] LABS: Glucose - Point of Care 280 mg/dl (70-99)
[2025-02-15 10:15] LABS: Glucose - Point of Care 233 mg/dl (70-99)
[2025-02-18 09:16] LABS: Glucose - Point of Care 327 mg/dl (70-99)
[2025-02-18 10:08] LABS: Glucose - Point of Care 348 mg/dl (70-99)
[2025-02-20 09:36] LABS: Glucose - Point of Care 242 mg/dl (70-99)
[2025-02-20 10:10] LABS: Glucose - Point of Care 204 mg/dl (70-99)
[2025-02-22 09:28] LABS: Glucose - Point of Care 286 mg/dl (70-99)
[2025-02-22 10:02] LABS: Glucose - Point of Care 248 mg/dl (70-99)
== END 2025-02-22 23:59 | disposition home or self-care (01) ==
LOC: CRHB 09:49
PROVIDERS: ATTENDING PHYSICIAN Internal Medicine Cardiovascular Disease
DX: I25.10 Atherosclerotic heart disease of native coronary artery without angina pectoris (principal); Z95.5 Presence of coronary angioplasty implant and graft
CPT/HCPCS: 82962; G0422; G0423

== ENCOUNTER → 2025-03-12 09:21 | Outpatient (REF) | payer MEDICARE, OTHER, SELFPAY ==
[2025-03-12 10:59] LABS: ALT (SGPT) 61 U/L (0-35); AST (SGOT) 50 U/L (14-36); Albumin 4.2 g/dl (3.5-5.0); Alkaline Phosphatase 127 U/L (38-126); Glucose 196 mg/dl (70-99); HDL Cholesterol 42 mg/dl; LDL Cholesterol, Calculated 41 mg/dl; Total Protein 6.7 g/dl (6.3-8.2); Very Low Density Lipoprotein 15 mg/dl (0-30)
[2025-03-12 11:50] LABS: Glycohemoglobin (HgbA1c) 12.2 % (4.0-5.6)
== END ==
LOC: REG 09:21
PROVIDERS: ATTENDING PHYSICIAN Internal Medicine; OTHER PHYSICIAN Internal Medicine Cardiovascular Disease; OTHER PHYSICIAN Specialist
DX: E11.59 Type 2 diabetes mellitus with other circulatory complications (principal); E11.65 Type 2 diabetes mellitus with hyperglycemia; Z79.4 Long term (current) use of insulin; E78.5 Hyperlipidemia, unspecified; E66.3 Overweight
CPT/HCPCS: 36415; 80061; 80076; 82947; 83036

== ENCOUNTER 2025-03-15 10:29 | Outpatient (RCR) | payer MEDICARE, OTHER, SELFPAY ==
[2025-02-27 09:26] LABS: Glucose - Point of Care 271 mg/dl (70-99)
[2025-02-27 10:21] LABS: Glucose - Point of Care 250 mg/dl (70-99)
[2025-03-01 09:19] LABS: Glucose - Point of Care 160 mg/dl (70-99)
[2025-03-01 09:53] LABS: Glucose - Point of Care 158 mg/dl (70-99)
[2025-03-06 09:16] LABS: Glucose - Point of Care 178 mg/dl (70-99)
[2025-03-06 10:14] LABS: Glucose - Point of Care 166 mg/dl (70-99)
[2025-03-08 09:11] LABS: Glucose - Point of Care 357 mg/dl (70-99)
[2025-03-08 10:10] LABS: Glucose - Point of Care 275 mg/dl (70-99)
[2025-03-11 09:19] LABS: Glucose - Point of Care 233 mg/dl (70-99)
[2025-03-11 10:20] LABS: Glucose - Point of Care 166 mg/dl (70-99)
[2025-03-15 09:28] LABS: Glucose - Point of Care 268 mg/dl (70-99)
[2025-03-15 10:21] LABS: Glucose - Point of Care 212 mg/dl (70-99)
[2025-03-18 09:23] LABS: Glucose - Point of Care 237 mg/dl (70-99)
== END 2025-03-15 23:59 | disposition home or self-care (01) ==
LOC: CRHB 10:29
PROVIDERS: ATTENDING PHYSICIAN Internal Medicine Cardiovascular Disease
DX: I25.10 Atherosclerotic heart disease of native coronary artery without angina pectoris (principal); Z95.5 Presence of coronary angioplasty implant and graft
CPT/HCPCS: 82962; G0422; G0423

== ENCOUNTER 2025-04-15 11:24 | Outpatient (RCR) | payer MEDICARE, OTHER, SELFPAY ==
[2025-03-29 09:22] LABS: Glucose - Point of Care 279 mg/dl (70-99)
[2025-03-29 10:11] LABS: Glucose - Point of Care 231 mg/dl (70-99)
[2025-04-01 09:28] LABS: Glucose - Point of Care 168 mg/dl (70-99)
[2025-04-01 10:21] LABS: Glucose - Point of Care 112 mg/dl (70-99)
[2025-04-05 09:16] LABS: Glucose - Point of Care 273 mg/dl (70-99)
[2025-04-05 10:18] LABS: Glucose - Point of Care 239 mg/dl (70-99)
[2025-04-15 09:24] LABS: Glucose - Point of Care 142 mg/dl (70-99)
[2025-04-15 10:09] LABS: Glucose - Point of Care 111 mg/dl (70-99)
== END 2025-04-19 09:15 | disposition home or self-care (01) ==
LOC: CRHB 11:24
PROVIDERS: ATTENDING PHYSICIAN Internal Medicine Cardiovascular Disease
DX: I25.10 Atherosclerotic heart disease of native coronary artery without angina pectoris (principal); Z95.5 Presence of coronary angioplasty implant and graft
CPT/HCPCS: 82962; G0422; G0423

== ENCOUNTER → 2025-04-29 10:22 | Outpatient (REF) | payer MEDICARE, OTHER, SELFPAY ==
[2025-04-29 11:43] LABS: Hemoglobin 10.9 g/dL (12.0-16.0)
[2025-04-29 12:11] LABS: Glycohemoglobin (HgbA1c) 10.4 % (4.0-5.9)
[2025-04-29 12:21] LABS: ALT (SGPT) 24 U/L (0-35); AST (SGOT) 26 U/L (14-36); Albumin 4.4 g/dl (3.5-5.0); Alkaline Phosphatase 124 U/L (38-126); Blood Urea Nitrogen 53 mg/dl (7-17); Calcium 8.8 mg/dl (8.4-10.2); Carbon Dioxide 26 mmol/L (22-30); Chloride 102 mmol/L (98-107); Glucose 70 mg/dl (70-99); HDL Cholesterol 45 mg/dl; LDL Cholesterol, Calculated 39 mg/dl; Potassium 4.5 mmol/L (3.5-5.1); Sodium 139 mmol/L (135-145); Total Protein 7.0 g/dl (6.3-8.2); Very Low Density Lipoprotein 16 mg/dl (0-30); eGFR 17.08
== END ==
LOC: REG 10:22
PROVIDERS: ATTENDING PHYSICIAN Specialist; FAMILY PHYSICIAN Internal Medicine
DX: N18.4 Chronic kidney disease, stage 4 (severe) (principal); E87.5 Hyperkalemia; I10 Essential (primary) hypertension; N25.81 Secondary hyperparathyroidism of renal origin; E11.59 Type 2 diabetes mellitus with other circulatory complications; E11.65 Type 2 diabetes mellitus with hyperglycemia; E11.21 Type 2 diabetes mellitus with diabetic nephropathy; Z79.4 Long term (current) use of insulin; E78.5 Hyperlipidemia, unspecified; E66.3 Overweight
CPT/HCPCS: 36415; 80053; 80061; 82248; 83036; 83970; 84100; 85018

== ENCOUNTER 2025-05-06 18:32 | Inpatient (IN) | payer MEDICARE, SELFPAY ==
[2025-05-06] VITALS (11 sets, daily range): BP systolic 125–194; BP diastolic 62–105
--- NOTE | 2025-05-06 15:27 | ED.GENMED ---
History of Present Illness
General
Chief Complaint: Chest Pain
Source: patient
Exam Limitations: none
Time Seen by Provider: 05/06/25 15:15
Nursing documentation reviewed up to this point in time: agreed with
History of Present Illness
History of Present Illness:
Patient with history of CAD, status post cardiac stent placement in October 2024, currently taking aspirin and Plavix, presents to ED secondary to persistent chest pain despite taking multiple tablets of nitroglycerin at home, starting at 10:30 AM
today. Chest pain described as achy, in the middle of chest, nonradiating, associated with brief episode of diaphoresis, which now has resolved, without any alleviating or exacerbating factors. Denies fever or chills. Denies nausea or vomiting.
Denies dizziness. Of note, patient has had intermittent cough for the past 1 week, and is currently taking Zithromax, as prescribed by her PCP. In addition, since cardiac catheterization and stent placement in October, patient states that she has felt
generalized weakness, which is not improving, despite completing recommended cardiac rehab. In addition, patient states that she has had intermittent pain since her procedure, but has always been alleviated with use of nitroglycerin. In addition,
chest pain has not been as persistent as it is today.
Past History
Past History
ED Past Medical History: CAD, GERD, HTN, Hypercholesterolemia, IDDM and Other (COVID-19, anemia, peripheral vascular disease, chronic kidney disease, celiac artery dissection, anemia, HSP)
ED Past Surgical History: Cardiac
Social History
Tobacco: Non-smoker
Alcohol: Occasional
Drug: None
Personal:
Living: with family
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
Family History
Family History: Other (Father with CAD, mother with diabetes)
Review of Systems
Review of Systems
Allergies reviewed?: Yes
All Other Systems: ROS reviewed and negative except as documented in HPI and ROS
Constitutional: Reports no symptoms
EENT: Reports no symptoms
Respiratory: Reports no symptoms
Cardiac: Reports chest pain and diaphoresis
ABD/GI: Reports no symptoms
Musculoskeletal: Reports no symptoms
Skin: Reports no symptoms
Neurological: Reports no symptoms
Phy Exam
Physical Exam
Physical Exam:
Physical Exam
General: mild distress, not acutely ill. afebrile. weak appearing
Head: nc/at. eomi
Neck: supple. no meningeal signs.
Heart: s1/s2 regular rate and rhythm. no murmur
Lungs: no acute respiratory distress. clear bilaterally. chest wall nontender to palpation
Abdomen: normal bowel sounds. not tender.
Neuro: alert and oriented x 3. no focal neurological deficits
Skin: no rash
Psychiatric: well kept. interactive and cooperative
Extremities: no edema. no calf tenderness.
Scores
Heart Score for Chest Pain Patients
STEMI patient?: No
History: Moderately Suspicious
ECG: Significant ST-Depression
Age: >/= 65 years
Risk Factors: >/= 3 Risk Factors or History of CAD
Troponin: >1 - <3 x Normal Limit
Heart Score for Chest Pain Patients: 8
Heart Score Risk: 72.7 % MACE over next 6 weeks
Course
Orders/Labs/Results
Orders:
Orders
05/06/25 15:11
Electrocardiogram (*1) Urgent
Reason for Study: Chest Pain
Cardiac Monitoring- Treatment ONCE
EKG- Treatment ONCE
05/06/25 15:20
Complete Blood Count/With Diff Urgent
05/06/25 15:25
Add On- LAB Urgent
Tests Added?: magnesium, ProBNP
05/06/25 15:26
Nitroglycerin Sublingual [Nitrostat (Sublingual)] 0.4 mg SL NOW STA
CR Chest Portable - 1 View Urgent
Comment:
Reason For Exam: chest pain
Reason Study Needs to be Portable: Patient Unstable
05/06/25 15:57
Nitroglycerin Sublingual [Nitrostat (Sublingual)] 0.4 mg SL NOW STA
05/06/25 16:21
Comprehensive Metabolic Panel Urgent
Magnesium Urgent
Comment: ADD ON
NT-proBNP Urgent
Comment: ADD ON
Troponin I Urgent
05/06/25 16:27
Nitroglycerin Ointment [Nitro-Bid] 0.5 inch TOPICAL NOW STA
05/06/25 17:51
Heparin 4,000 units IV NOW STA
Pharmacy Request to Place See Dose Instructions PO NOW STA
Discontinue all Active Warfarin orders?: Yes
05/06/25 17:[address] Non Medication Order As Directed
Physician Order: PTT 6 hours after initial start of Heparin infusion
Above order entered?: Yes
05/06/25 17:59
PTT Urgent
Comment: Obtain baseline before beginning heparin infusion if not already collected
05/06/25 18:00
Heparin 20977 Units/250 ml 25,000 units in 250 ml IV PER PROTOCOL
Weight to be used for heparin protocol in kilograms (kg):: 67.2
Protocol:: Cardiac Tx/Acute Coronary
PTT Goal Range to be used:: PTT 73 to 111 seconds
Order type:: Initial
INITIAL Infusion Dose (UNITS/KG/hr) & then follow protocol:: 12 units/kg/hr
Infusion Dose in UNITS/hr & then follow protocol (UNITS/hr):: 800
INFUSION RATE in mL/hr & then follow protocol (mL/hr):: 8
PTT less than or equal to 64 seconds:: Increase rate by 200 units/hr (+ 2 mL/hr)
PTT 64.1 to 72.9 seconds:: Increase rate by 100 units/hr (+ 1 mL/hr)
PTT 73 to 111 seconds:: Target Range. No change in rate.
PTT 111.1 to 130.9 seconds:: Decrease rate by 100 units/hr (- 1 mL/hr)
PTT 131 to 199.9 seconds:: HOLD for 1 hr. Then decrease rate by 200 units/hr (- 2 mL/hr)
PTT greater than or equal to 200 seconds:: HOLD for 2 hrs & Notify Provider. Then decrease by 200 units/hr (-
2 mL/hr)
Lab follow-up:: Each change, PTT q6h until 2 consecutive are therapeutic. Then PTT
daily.
Pharmacy Request to Place See Dose Instructions IV DIRECTED
05/06/25 18:04
Admit/Transfer Patient As Directed
Co-Sign Provider:
Level of Care: Inpatient admission
Assign to:: IMU- Intermediate Care
Physician / Group: [email or web address]
Diagnosis: NSETMI, ACS
Reason for Hospitalization: NSETMI, ACS
Expected length of stay greater than two midnights?: Yes
ELOS- Estimated Length of Stay in days: 3
I certify the patient meets the requirements for IP care: Yes
05/06/25 18:09
Code Status As Directed
Resuscitation Status: Full Code
05/06/25 20:12
Electrocardiogram (*1) Q3H
Reason for Study: Chest Pain
Comment: at admission and Q3H for total of 3, to be done with each troponin
Dextrose 50%-Water [Dextrose 50% Syringe] 12.5 grams IV [id number] PRN
Glucagon [GlucaGen] 1 mg IM PRN PRN
Sodium Bicarbonate 650 mg PO BID
insulin glargine [Basaglar KwikPen U-100 Insulin] 12 unit SC BID
05/06/25 20:12
CARDIOLOGY CONSULT Routine
Consulting Provider: Perry Javier
Was physician already notified: Yes
Reason for consult: NSETMI, ACS
Activity As Directed
Activity Level: With Assistance
Bedside Glucose Monitoring As Directed
Frequency: AC&HS
Additional Instructions:: Change to q6h if pt on TPN, tube feeding or not eating
INT (Intravenous Needle Therapy) As Directed
Comment: maintain peripheral IV access
Intake/ Output As Directed
Frequency: Per unit guidelines
Vital Signs As Directed
Frequency: q4h
Weight As Directed
Frequency: Daily
05/06/25 21:46
Troponin I Q3H
Comment: at admit & Q3H for 3 total including ED draws, obtain ECG with each level
05/06/25 22:00
pregabalin 300 mg PO HS
05/06/25 23:12
Electrocardiogram (*1) Q3H
Reason for Study: Chest Pain
Comment: at admission and Q3H for total of 3, to be done with each troponin
05/07/25 00:00
Insulin Aspart Corrective Low [Novolog Flexpen-Low Resistance] See Protocol SC Q6
Nitroglycerin Ointment [Nitro-Bid] 0.5 inch TOPICAL Q6
05/07/25 02:12
Electrocardiogram (*1) Q3H
Reason for Study: Chest Pain
Comment: at admission and Q3H for total of 3, to be done with each troponin
05/07/25 Breakfast
NPO
Allow oral meds: Yes
Allow clear liquids: Sips of Clears
NPO with Ice Chips: Yes
Cardiovascular Evaluation IN AM
Complete Blood Count/No Diff IN AM
Comprehensive Metabolic Panel IN AM
05/07/25 08:00
Aspirin Chewable [Low Strength Aspirin] 81 mg PO DAILY
Clopidogrel Bisulfate [Plavix] 75 mg PO DAILY
Ezetimibe [Zetia] 10 mg PO DAILY
Furosemide [Lasix] 40 mg PO DAILY
Metoprolol Xl [Toprol Xl] 25 mg PO DAILY
Pantoprazole [Protonix] 40 mg PO DAILY
05/07/25 18:00
Atorvastatin [Lipitor] 80 mg PO QPM
Abnormal Lab Results
05/06/25 05/06/25
15:20 16:21
Hgb 10.9 L g/dL
(12.0-16.0)
Hct 35.6 L %
(37.0-47.0)
MCH 25.2 L pg
(27.0-31.0)
MCHC 30.6 L g/dL
(33.0-37.0)
RDW 19.7 H %
(11.5-14.5)
Absolute Neuts (auto) 8.5 H 10^3/uL
(1.4-6.5)
Neutrophils % 80.4 H %
(42.2-75.2)
Lymphocytes % 11.9 L %
(20.5-51.1)
Sodium 132 L mmol/L
(135-145)
BUN 64 H mg/dl
(7-17)
Creatinine 2.9 H mg/dL
(0.6-1.0)
Glucose 290 H mg/dl
(70-99)
Calcium 8.2 L mg/dl
(8.4-10.2)
AST 87 H U/L
(14-36)
Troponin I 1.650 H* ng/ml
05/06/25 15:20
05/06/25 16:21
Vital Signs
Initial and Last Documented VS:
Initial Vital Signs
Temp Pulse Resp BP Pulse Ox
97.6 F 79 14 194/96 97
05/06/25 15:13 05/06/25 15:13 05/06/25 15:13 05/06/25 15:13 05/06/25 15:13
Last Documented Vital Signs
Temp Pulse Resp BP Pulse Ox
97.9 F 62 13 128/60 94
05/06/25 22:51 05/07/25 00:15 05/07/25 00:15 05/07/25 00:10 05/07/25 00:15
MDM/Problems Addressed
MDM/Problems Addressed:
Chest pain relieved completely after nitroglycerin sublingual x 2. Patient placed on Nitropaste half inch, secondary to soft blood pressure.
Troponin noted. Patient remained chest pain-free. Patient will be started on heparin protocol. Full-strength aspirin taken at home prior to arrival.
Discussed with on-call cardiology, Dr. Javier, via [place] text. Agrees with current treatment plan.
Critical care statement: A total of 40 minutes of critical care time was provided for this patient. This includes management of unstable vital signs, evaluation of the patient at bedside, reviewing the patient's pertinent medical records, discussion
with consultants, review of old EKGs and review of pertinent medical records. This time with separate from time utilized to perform the aforementioned documented procedures
*Pulse Oximetry
Patient hypoxic: no
*EKG
Interpreted by ED Provider?: Yes
EKG Intrepretation Date: 05/06/25
Heart Rate: 77
Rate: normal
Rhythm: sinus
[place]: normal axis
Ischemia: ST depression
*Critical Care Note
Total Time (30-74mins, 75-104mins- exclusive of procedures): 40 min
ED Attending Note
-
Portions of this chart may have been created with voice recognition software.� Occasional wrong word or��sound alike� substitutions may have occurred due to the inherent limitations of voice recognition software.
Discharge Plan
Departure
Patient Disposition: Admit
Date of Disposition: 05/06/25
Time of Disposition: 17:34
Admit to: IMU
Presentation/result/management discussed w/ accepting MD/DO: Hospitalist
Discharge Problem:
Non-ST elevation OK (NSTEMI)
Interventions
Interventions:
*Risk Screen - Suicide Last Done: 05/06/25 15:13
*General Assessment Last Done: 05/06/25 15:13
*Neglect/Abuse Screening Last Done: 05/06/25 15:13
*ED- Fall Risk Assessment Last Done: 05/06/25 15:13
*ED COVID-19 Vaccine History Last Done: 05/06/25 15:13
*ED Influenza Vaccine History Last Done: 05/06/25 15:13
*Nursing Disposition Last Done: 05/06/25 20:19
ED- Cardiac Assessment Last Done: 05/06/25 15:28
Discharge Date and Time
Discharge Date/Time: 05/06/25 20:19
[2025-05-06] MEDS: NITROSTAT (SUBLINGUAL) 0.4 MG SL ×2 (15:31→15:59)
[2025-05-06 15:45] LABS: Hematocrit 35.6 % (37.0-47.0); Hemoglobin 10.9 g/dL (12.0-16.0); Mean Corp Hgb Conc. 30.6 g/dL (33.0-37.0); Mean Corpuscular Volume 82.4 fL (81.0-99.0); Nucleated Red Blood Cells % 0 %; Platelet Count 209 10^3/uL (130-400); Red Cell Dist. Width 19.7 % (11.5-14.5)
[2025-05-06 16:51] LABS: ALT (SGPT) 22 U/L (0-35); AST (SGOT) 87 U/L (14-36); Albumin 3.9 g/dl (3.5-5.0); Alkaline Phosphatase 107 U/L (38-126); Blood Urea Nitrogen 64 mg/dl (7-17); Calcium 8.2 mg/dl (8.4-10.2); Carbon Dioxide 26 mmol/L (22-30); Chloride 100 mmol/L (98-107); Estimated Creatinine Clearance 14 ml/min; Glucose 290 mg/dl (70-99); Potassium 4.7 mmol/L (3.5-5.1); Sodium 132 mmol/L (135-145); Total Protein 6.3 g/dl (6.3-8.2); eGFR 16.37
[2025-05-06 16:57] LABS: Magnesium 2.1 mg/dl (1.6-2.3)
[2025-05-06 17:04] LABS: Troponin I 1.650 ng/ml
[2025-05-06] MEDS: NITRO-BID 0.5 INCH TOPICAL (17:10)
--- NOTE | 2025-05-06 17:42 | HPS.HSE ---
Addendum entered and electronically signed by Gordo Huang MD 05/06/25 23:12:
Laboratory Tests
05/06/25 05/06/25
16:21 21:46
Troponin I 1.650 H* 14.700 H* D
NSTEMI
Trending UP TPNI
Denied CP
Currently on Heparin gtt, NT patch
House [employer] ROOM MANAGER reached out to [facility] for rising and suggest
- continue to trend troponin , continue heparin drip
- If CP returns, to add nitro gtt and titration to CP free.
Original Note:
Family Physician
-
Family Physician: Isaak Carlton
Chief Complaint
-
CP
History of Present Illness
HPI
75F Non smoker HX CAD, status post cardiac stent placement in October 2024, on DAPL , chronic HFpEF, HX NIMI, CKD4, DM, AC Dz, ILDzx seen at ER:
- persistent chest pain despite taking multiple tablets of nitroglycerin at home, starting at 10:30 AM today.
- described as achy, in the middle of chest, nonradiating, associated with brief episode of diaphoresis, which now has resolved, without any alleviating or exacerbating factors.
Of note, patient has had intermittent cough for the past 1 week, and is currently taking Zithromax, as prescribed by her PCP.
ROS
Denies fever or chills.
Denies nausea or vomiting.
Denies dizziness.
Medical History
Past Medical History
Past Medical History: Reports Other
Additional Past Medical History:
Hypertension
DM-II
CKD IV
ASCVD (CAD, PAD)
Chronic HFpEF
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
Past Surgical History: Reports Other
Additional Past Surgical History:
PTCA with Stents (11/14/24)
Diagnostic Cardiac Cath (11/01/24)
Gastric Bypass
D&C
T&A
PTCA / Stents
PAD Stents / Endarterectomies
Left ERIC
Social History
Tobacco: Non-smoker
Alcohol: Occasional (Rarely.)
Drug: None
Family History
Family History: Not pertinent
Allergies / Home Medications
Allergies reflects when Allergies were last updated in [employer].
Home Medications with original date entered in [employer]
Allergy/Medication List:
Allergies
Allergy/AdvReac Type Severity Reaction Status Date / Time
MARCELL Inhibitors (Marcell Allergy Swelling/AN Verified 11/26/24 03:15
Inhibitors) GIOEDEMA
chamomile flower Allergy Rash Verified 11/26/24 03:15
Sulfa (Sulfonamide Allergy Rash Verified 11/26/24 03:15
Antibiotics)
sulfite Allergy VASCULITIS Verified 11/26/24 03:15
artificial sweetners Allergy Unknown Uncoded 11/26/24 03:15
Home Medications
clopidogrel 75 mg tablet (Plavix) 75 mg PO DAILY Blood Clot Prevention/Tx 06/19/24
ezetimibe 10 mg tablet 10 mg PO DAILY cholesterol #0 tabs 07/02/24
febuxostat 40 mg tablet 40 mg PO HS elevated uric acid #0 tabs 07/02/24
atorvastatin 80 mg tablet 80 mg PO QPM cholesterol 10/29/24
cholecalciferol (vitamin D3) 50 mcg (2,000 unit) tablet (Vitamin D3) 50 mcg PO DAILY Supplement 10/29/24
coQ10 (ubiquinol) 200 mg capsule 400 mg PO DAILY High Cholesterol 10/29/24
pantoprazole 40 mg tablet,delayed release (Protonix) 40 mg PO DAILY Gastrointestinal Issue 10/29/24
pregabalin 150 mg capsule 300 mg PO HS diabetic neuropathy 10/29/24
sodium bicarbonate 650 mg tablet 650 mg PO BID Electrolyte Repletion 10/29/24
tramadol 50 mg tablet 50 mg PO Q6HPRN PRN moderate pains 10/29/24
aspirin 81 mg chewable tablet 81 mg PO DAILY 30 days #30 tabs 11/16/24
ferrous sulfate 325 mg (65 mg iron) tablet (FeroSul) 325 mg PO DAILY 30 days #30 tabs 11/16/24
insulin aspart U-100 100 unit/mL (3 mL) subcutaneous pen (Novolog FlexPen U-100 Insulin aspart) 5 unit (0.05 mL) SC AC Diabetes #5 ea 11/16/24
metoprolol succinate 25 mg tablet,extended release 24 hr 25 mg PO DAILY 30 days #30 tabs 11/16/24
insulin glargine 100 unit/mL (3 mL) subcutaneous pen (Basaglar KwikPen U-100 Insulin) 14 unit SC DAILY@0700 Diabetes 11/26/24
Review of Systems
-
History Source: Patient
A 12 point ROS was completed and negative except as noted: Yes
Constitutional: Reports Weight Gain; Denies Fever or Chills
Respiratory: Reports Trouble Breathing; Denies Cough
Cardiac: Reports See HPI and Chest Pain
Abdomen/GI: Denies Abdominal Pain, Nausea, Vomiting or Diarrhea
: Denies Dysuria or Frequency
Musculoskeletal: Reports Edema
Neurological: Denies Dizzy or Headache
Psych: Denies Depression or Anxiety
Physical Exam
Vital Signs
Vital Signs
Temp Pulse Resp BP Pulse Ox
97.6 F 68 18 148/74 95
05/06/25 15:13 05/06/25 17:30 05/06/25 17:30 05/06/25 17:10 05/06/25 16:00
Physical Exam
General: Well Developed, Well Nourished and No Apparent Distress
HEENT: NormoCephalic, Moist mucous membranes and Atraumatic
Respiratory: Clear
Cardiac: S1/S2 and Regular Rhythm; No Murmur or Rub
GI: Soft, Non Tender, Non Distended and Normal Bowel Sounds; No Organomegaly
Rectal: Deferred by Provider
Musculoskeletal: No Clubbing, No Cyanosis and No Edema
Skin: No Rash
Neuro: Nonfocal/grossly intact
Laboratory Results
-
05/06/25 15:20
05/06/25 16:21
Laboratory Results
Total Bilirubin 0.5 mg/dl (0.2-1.3) 05/06/25 16:21
AST 87 U/L (14-36) H 05/06/25 16:21
ALT 22 U/L (0-35) 05/06/25 16:21
Alkaline Phosphatase 107 U/L (38-126) 05/06/25 16:21
Troponin I 1.650 ng/ml H* 05/06/25 16:21
Data Reviewed
-
Medical Tests (Nuc Med, Echo, EKG etc): Report Reviewed by me
Lab Data: Labs Reviewed by me
Impression/Plan
-
Vital Signs
Temp Pulse Resp BP Pulse Ox
97.6 F 68 18 148/74 95
05/06/25 15:13 05/06/25 17:30 05/06/25 17:30 05/06/25 17:10 05/06/25 16:00
04/29/25 04/29/25 05/06/25
10:53 10:54 :
WBC 10.6
Hgb 10.9 L 10.9 L
Plt Count 209
Sodium 132
BUN 64
Creatinine 2.8 H 2.9
eGFR 17.08 16.3
Glucose 20
Calcium 8.2
05/06/25
16:21
Troponin I 1.650 H*
Afx-G-Fidohmndwiy Pept 8100
EKG
NORMAL SINUS RHYTHM
ST and T WAVE ABNORMALITY, CONSIDER LATERAL ISCHEMIA
ABNORMAL ECG
WHEN COMPARED WITH ECG OF 20-Dec-2024 23:41,
NO SIGNIFICANT CHANGE WAS FOUND
Confirmed by YOMAIRA POPE MD ([id number]) on 05/06/2025 5:10:46 PM
CXR
Diffusely increased interstitial markings within both lungs, findings most suggestive of interstitial pulmonary edema pattern.
Differential consideration of bilateral interstitial-type pneumonia, felt to be less likely.
Last hospitalist admission: 11/26/24 -11/28/24
DC Dxs:
Acute on chronic HFpEF
NIMI
CKD4
ASSESSMENT & PLAN
Pending Rx reconciliation
CP - probably NSTEMI
CP free s/p sl NTG x2, NTP
HX CAD, status post cardiac stent placement in October 2024, on DAPL
- agree with heparin gtt
- NTP for now
- NTG gtt if return of CP
- Continue current CV med regimen including DAPT, statin, etc.
- NPO after MN in case
CKD 4
Metabolic Acidosis
- Stable. Renal function
- Follow for changes with diuresis.
- Continue bicarb supplementation.
Anemia of Chronic Disease
- Stable / Improved from prior.
- Continue iron supplementation.
- Follow for changes.
Chronic HFpEF HX
- Continue with INTERDISCIPLINARY PROFESSOR PO Lasix
- Follow I/Os, daily weights, etc.
- Cardiology following
Benign HTN
- Continue current med regimen and adjust as needed for adequate BP control.
DM-II
- Stable
- c/w INTERDISCIPLINARY PROFESSOR basal insulin.
- on SSI low
- A1C last month was 11.8.
ILD
- HX s/p severe COVID pneumonia.
- Follow for any new / worsening dyspnea despite diuresis.
DVT Px: SQH
Code: Full
IMU
[2025-05-06 18:21] LABS: APTT 31.9 Sec (23.4-35.0)
[2025-05-06] MEDS: HEPARIN 25000 UNITS/250 ML IV (18:37)
[2025-05-06] MEDS: HEPARIN 4000 UNITS IV (18:38)
[2025-05-06 21:19] LABS: Glucose - Point of Care 230 mg/dl (70-99)
[2025-05-06] MEDS: SODIUM BICARBONATE 650 MG PO (22:06)
[2025-05-06] MEDS: LANTUS 0.12 UNITS SC (22:06)
[2025-05-06] MEDS: LYRICA 150 MG PO (22:15)
[2025-05-06 22:18] LABS: Troponin I 14.700 ng/ml
--- NOTE | 2025-05-06 22:25 | PTCARENOTE ---
trop 14.700. no chest pain at this time, VSS. ekg done with trop. TERRI Subramanian made aware of results.
--- NOTE | 2025-05-06 23:02 | W.PN.UPDATE ---
Update Note
Progress Note Update
Troponin 14.700 previous troponin 1.650. Asymptomatic. Patient currently on heparin drip. Discussed with the shipping technician institutional cook and plan to trend troponin, continue heparin drip. If CP returns, to add nitro gtt and titration to CP free.
[2025-05-07] VITALS (15 sets, daily range): BP systolic 98–139; BP diastolic 45–72; BMI 27.6
[2025-05-07] MEDS: NITRO-BID 0.5 INCH TOPICAL ×4 (00:08→17:34)
[2025-05-07] MEDS: NOVOLOG FLEXPEN-LOW RESISTANCE SC ×3 (00:42→16:59)
[2025-05-07 00:53] LABS: Glucose - Point of Care 145 mg/dl (70-99)
[2025-05-07 01:27] LABS: APTT > 200 Sec (23.4-35.0)
[2025-05-07 04:28] LABS: Hematocrit 32.0 % (37.0-47.0); Hemoglobin 9.6 g/dL (12.0-16.0); Mean Corp Hgb Conc. 30.0 g/dL (33.0-37.0); Mean Corpuscular Volume 83.6 fL (81.0-99.0); Red Cell Dist. Width 19.7 % (11.5-14.5)
[2025-05-07 04:30] LABS: ALT (SGPT) 29 U/L (0-35); AST (SGOT) 183 U/L (14-36); Albumin 3.6 g/dl (3.5-5.0); Alkaline Phosphatase 93 U/L (38-126); Blood Urea Nitrogen 66 mg/dl (7-17); Calcium 8.3 mg/dl (8.4-10.2); Carbon Dioxide 27 mmol/L (22-30); Chloride 104 mmol/L (98-107); Estimated Creatinine Clearance 15 ml/min; Glucose 75 mg/dl (70-99); HDL Cholesterol 32 mg/dl; LDL Cholesterol, Calculated 40 mg/dl; Potassium 4.0 mmol/L (3.5-5.1); Sodium 137 mmol/L (135-145); Total Protein 6.1 g/dl (6.3-8.2); Very Low Density Lipoprotein 17 mg/dl (0-30); eGFR 17.08
[2025-05-07 04:48] LABS: Troponin I 23.200 ng/ml
[2025-05-07 04:58] LABS: Platelet Count 172 10^3/uL (130-400)
[2025-05-07] MEDS: DEXTROSE 50% SYRINGE 12.5 GRAMS IV (06:16)
[2025-05-07 06:23] LABS: Glucose - Point of Care 53 mg/dl (70-99)
[2025-05-07 07:05] LABS: Glucose - Point of Care 106 mg/dl (70-99)
--- NOTE | 2025-05-07 07:42 | W.PN.HOSP.TC ---
Addendum entered and electronically signed by Kellee Rios MD 05/07/25 14:32:
Attending�addendum:
I saw and evaluated the patient. I reviewed the resident�s note and agree with findings and plan as documented in the resident�s note.��patient seen and examined at bedside, denies any chest pain currently or shortness of breath, no abdominal pain,
no nausea, no vomiting, no diarrhea or constipation.
Physical�exam:
GENERAL : Patient is awake, alert, oriented x3
HEENT: Nonicteric sclerae, PERRLA, EOMI. Oropharynx clear. Moist mucous membranes. Conjunctivae appear well perfused.
CHEST: Chest wall is nontender.
HEART: Regular rate and rhythm without murmurs.
LUNGS: Clear to auscultation bilaterally.
ABDOMEN: Soft, positive bowel sounds, nontender, no organomegaly.
RECTAL: Deferred.
MUSCLES/EXTREMITIES: No abnormal range of motion, no swelling.SKIN: No rash, no excessive bruising, petechiae, or purpura.
NEUROLOGIC: Cranial nerves II-XII intact without motor/sensory deficit.
�
Assessment/plan:
Non-STEMI.
Appreciate cardiology/nephrology input.
Continue heparin drip.
P2 Y12 pending
Chronic diastolic CHF.
Lasix on hold in setting of JESI
Acute kidney injury on CKD 4.
Appreciate nephrology input
CODE STATUS: Full code
DVT prophylaxis: Heparin
Diet: Diabetic
�
Total time spent on today�s encounter was 55 minutes which included time spent in counseling the patient/family regarding diagnosis and treatment plan as listed above, goals of care, and symptom management. Case was discussed with nursing staff,
specialists, and care coordinators/case management. All labs and imaging personally reviewed by me. Remainder the time spent in detailed review of previous records, lab data, imaging, and other medical provider documentation.
Original Note:
Today's Communication/Plan
-
.
Assessment / Plan
Assessment / Plan
Steph Luong is a 75 y/o F w/ PMHX CAD (s/p multiple PCI/stent/MATT with most recent being 11/14/24), GERD, HTN, HLD, IDDM, CKD Stage 4, celiac aa. dissection, chronic anemia, and ILD who is presenting with 1 week of substernal, daily chest pain
episodes that resolve with SL NTG with marked elevation and uptrend of cardiac biomarkers and EKG showing ischemic changes in the lateral leads. Patient was admitted to the IMU and started on heparin drip, NTG paste, and made NPO for invasive
coronary angiography.
1. NSTEMI
- Substernal anginal symptoms x 1 week alleviated by NTG; continue NTG paste; if return of pain, consider NTG gtt
- Troponin (ED): 1.65 --> 14.7 --> (AM) 23.2
- ECG showing anterolateral ST changes
- Continue Heparin gtt, follow PTT
- Appreciate cardiology recommendations; consideration of invasive coronoary angiography
- Continue ASA/Plavix/Statin/Zetia
- P2y12 testing for Plavix efficacy
2. Chronic HFpEF
- CXR suggestive of mild interstitial pulmonary edema
- BNP 8100 (37182 at last admission)
- Euvolemia on exam
- Hold LAsix in setting of JESI and the need for contrast
- Daily weights/I/Os
- ECHO per cardiology to check LV fcn
3. Acute Kidney Injury or CKD 4
- Creatinine on admission 2.9 (baseline 2.3-2.5)
- Decreased renal perfusion in setting of LV dysfunction 2/2 NSTEMI? Check ECHO
- Nephrology recommendations, cardiology recommendations for use of contrast for angiography in setting of CKD
- Lasix Held
- Continue Bicarb supplement
- Follow BMP
4. History of GERD
- Continue Pantoprazole
- Consider effect of PPI on Plavix; Protonix > Omeprazole, but may need to be transitioned to Pepcid
- P2y12 testing in progress
5. HTN
- BPs are at goal; continue to monitor
6. HLD
- Hold statin in setting of transaminitis
7. Transaminitis
- Mild AST elevation
- Repeat CMP in AM
- Potential from decreased perfusion in setting of LV dysfcn 2/2 NSTEMI? Echo pending.
- Hold statin
8. IDDM
- Continue Lantus and corrective
- Hypoglycemia this morning, but diet restarted since procedure deferred
9. Chronic Anemia
- Daily CBC
10. Interstitial Lung Disease
- Stable
11. Mild asymptomatic Hyponatremia
- Repeat BMP in AM
Code: FULL
Diet: Cholesterol Lowering
DVT: Hep
Anticipated Discharge: 24 - 48 hours
Subjective/Interval History
-
Date of Service: May 07, 2025
Patient seen and examined while resting comfortably in bed.
Denies chest pain, palpitations, shortness of breath, lower extremity edema, or other acute complaints this morning.
Since this is my first time meeting the patient, performed a full history, physical and chart review.
Briefly, she is a 75 y/o F w/ PMHx CAD (s/p multiple PCI/stent/MTAT with most recent being 11/14/24), GERD, HTN, HLD, IDDM, CKD Stage 4, celiac aa. dissection, chronic anemia, and ILD who is presenting with 1 week of substernal, daily chest pain
episodes that resolve with SL NTG. Patient endorses that the chest began approximately one week ago, and feels similar to previous [place] pain. She states that the pain comes on once daily, at which point she will take a SL NTG that completely
alleviates the pain. The pain does not return for the rest of the day, but she will have repeated episodes daily. Pain is non radiating and associated with diaphoresis as well as occasional nausea/vomiting. Patient states she finally came to ER
tonight because yesterday she ran out of her NTG, and when she tried to call Dr. VICKY Danielson's office for refill, they implored her to go to ED. Upon arrival patient was treated with NTG patch with resolution of symptoms.
ED Course:
Patient in mild distress, weakness, normal exam.
CBC only significant for chronic anemia.
BMP with mild hyponatremia and JESI on CKD w/ Cr 2.9 (baseline 2.3-2.5)
LFTs with mild transaminitis
Initial troponin 1.65; 14.7 yesterday PM, 23.2 this AM.
BNP 8100, improvement from 11/2024 (71210)
CXR: interstitial pulm edema
Initial EKG with questionable lateral ischemia but no change from 11/2024; repeat more marked ST abnormalities in lateral leads
Objective Data
-
Labs:
Laboratory Results
05/07/25 05/07/25 05/07/25
00:51 03:49 09:30
WBC 8.6
Hgb 9.6 L
Hct 32.0 L
Plt Count 172
APTT > 200 H* Pending
Sodium 137
Potassium 4.0
Chloride 104
Carbon Dioxide 27
BUN 66 H
Creatinine 2.8 H
Glucose 75
Calcium 8.3 L
Total Bilirubin 0.4
AST 183 H
ALT 29
Alkaline Phosphatase 93
Vital Signs:
Vital Signs
Temp Pulse Resp BP Pulse Ox
98.1 F 54 11 118/50 99
05/07/25 07:41 05/07/25 07:30 05/07/25 07:30 05/07/25 06:15 05/07/25 07:30
Review of Systems
-
History Source: Patient
All other systems: Reviewed and negative
Physical Exam
-
General: Well Developed, Well Nourished, No Apparent Distress and Conversant; Negative Respiratory Distress
HEENT: Normocephalic, Atraumatic and Moist Mucous Membranes
Respiratory: Crackles and Non Labored Respirations
Cardiac: Regular Rhythm; Negative Murmur
GI: Soft
Musculoskeletal: No Clubbing, No Cyanosis and No Edema
Skin: Warm
Neuro: Awake, Alert and Oriented
Psych: Calm
Data Reviewed
-
Diagnostic Radiology: Image personally visualized and interpreted, Report Reviewed by me and Discussed with Patient
Labs: Labs Reviewed by me and Discussed with Patient
[2025-05-07] MEDS: LANTUS SC (07:53)
[2025-05-07] MEDS: PROTONIX 40 MG PO (08:56)
[2025-05-07] MEDS: PLAVIX 75 MG PO (08:56)
[2025-05-07] MEDS: ZETIA 10 MG PO (08:57)
[2025-05-07] MEDS: SODIUM BICARBONATE 650 MG PO ×2 (08:57→19:43)
[2025-05-07] MEDS: LASIX 40 MG PO (08:57)
[2025-05-07] MEDS: TOPROL XL 25 MG PO (08:57)
[2025-05-07] MEDS: LOW STRENGTH ASPIRIN 81 MG PO (08:57)
[2025-05-07 09:00] LABS: Glucose - Point of Care 63 mg/dl (70-99)
--- NOTE | 2025-05-07 09:20 | PTCARENOTE ---
Addendum entered by Liss Viramontes RN 05/07/25 11:45:
Blood sugar checked 2 hours after 4 oz of apple juice was given and patient ate breakfast. Blood sugar 180. Dr. Rios said that it is OK to give novolog per order. Administered per AUG.
Original Note:
Blood sugar checked Q2 hours after hypoglycemic event for nightshift. Blood sugar 63. 4 oz of apple juice given to patient when she was taking her PO meds. Blood sugar rechecked 15 minutes after apple juice was drank and was 88. Patient
asymptomatic. Will do Q2 hour blood sugars x2. Holding AM dose of lantus.
[2025-05-07 09:28] LABS: Glucose - Point of Care 88 mg/dl (70-99)
--- NOTE | 2025-05-07 09:29 | CON.CAR ---
Addendum entered and electronically signed by Jackson Clements MD 05/07/25 10:52:
I saw and examined the patient.
The Campus Aide's note was reviewed and I agree with the note.
Comment: Briefly, 75-year-old woman past medical history multivessel CAD with recent left main PCI (10/2024), heart failure with recovered EF and CKD stage IV who presents for evaluation of chest discomfort and was found to have rising troponin
(1.7�14.7 -23.2) consistent with NSTEMI.
Ongoing chest discomfort at home for at least the last several weeks that she was treating with sublingual nitroglycerin
Unfortunately, after running out of sublingual nitro her chest pain worsened which prompted her presentation to [facility] emergency department
Reports that she has been frequently taking sublingual nitroglycerin to treat chest discomfort at home. She was unable to refill this medication at the pharmacy
She was treated with Nitropatch in the ER and symptoms resolved, was chest pain-free at the time of my evaluation
Agree with medical management of CAD�aspirin/Plavix, beta-pasha and heparin drip
Statin held d/t elevated LFTs
Recommend proceeding with invasive coronary angiography
Discussed with patient the risk/benefits of contrast administration in the setting of CKD. Appreciate nephrology input.
For completeness check echo to reassess LV function
Original Note:
Consultation
Consultation Request
Date/Time Consultation Requested: 05/06/2025 at 2012
Date/Time Consultation Performed: 05/07/2025 at 0843
Requesting Provider: Dr. Rios
Performing Provider: Dr. Clements
Reason for Consultation: Chest pain, NSTEMI
Medical History
-
History of Present Illness:
Patient came to the ER yesterday with chest pain and initial troponin was 1.65 and has now trended up to 23.2 prompting cardiology consultation for NSTEMI. Patient had a prolonged admission from 10/29/2024 until 11/16/2024 for NSTEMI and cardiac cath
showed MV CAD. Patient was initially seen in consultation by CT surgery and there is consideration for CABG, but this was ultimately deferred due to JESI on CKD and patient instead had high risk PCI with stenting of the distal left main into the
circumflex and distal left main into the proximal LAD on 11/14/2024. Patient was discharged home and then readmitted 2 weeks later with acute HF and CKD. Patient was then doing well and had last seen Dr. Danielson in the office on 01/31/2025. 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
for her and she started that job last week. In the meantime patient called the office with chest pain on 04/23/2025 and was advised to go to the ER for evaluation given her complex CAD history, she ended up not going to the ER because she was
afraid she would miss her first day of work. Instead she was taking NTG SL several times a day for chest pain. Chest pain is described as being present on a daily basis and comes and goes throughout the day, it is a deep aching feeling and feels
similar to her previous [facility] pain. She finally came to the ER last night because she ran out of her NTG SL tablets and the pharmacy would not refill her prescription. She is distressed because she only had 2 days at her new job before she had to
come to the ER and is now missing work. Despite this she is pain-free on heparin gtt and Nitropaste. Initial troponin is 1.65 and now up to 23.2.
PMH:
Admission for acute HF and elevated troponin 11/26/24 until 11/28/2024
Admission for NSTEMI, MV CAD with distal LM into circumflex and distal LM into proximal LAD PCI, acute HF and JESI 10/29/2024 until 11/16/2024
CKD 4
CAD
s/p 2.5 mm Xience OM1 PCI 02/12/2019
s/p Xience prox and overlapping previously placed distal OM-1 05/17/2019
s/p 2.5 mm Xience OM1 PCI 01/20/21
NSTEMI, s/p complex MATT distal LM into LCx/OM1 3.0 x 22 mm [employer]tron[employer] [place] drug-eluting stent and from distal LM into proximal LAD 2.75 x 18 mm Medtronic [place] drug-eluting stent 11/14/2024
PAD
s/p R common femoral endarterectomy w/ patch angioplasty and covered R iliac stent 01/2024
s/p right SFA angioplasty and stent 04/2020
h/o COVID 19 w/ residual parenchymal scarring
HTN
HLD
DM2
h/o Henoch-Sanna�nlein purpura
Glaucoma
Celiac compression syndrome s/p POWER SHOVEL OPERATOR HELPER for compression and dissected 2016
h/o gastric bypass 2010
h/o angioedema on MARCELL inhibitors
Aortic atherosclerosis
h/o orthostasis on Terazosin
h/o TIA 2016
Iron deficiency anemia
Past Medical History
Past Medical History: Other (In HPI)
Past Surgical History: Cardiac (Multiple coronary stents), Orthopedic (L hip replacement 05/2024) and Tonsilectomy
Social History
Tobacco: Non-Smoker
Alcohol: None
Drug: None
Personal:
Living: With Family
Employment: Employed
Family History
Family History: CAD and Hypertension
Allergies / Home Medications
Allergy/AdvReac Type Severity Reaction Status Date / Time
MARCELL Inhibitors (Marcell Allergy Swelling/AN Verified 12/20/24 23:31
Inhibitors) GIOEDEMA
chamomile flower Allergy Rash Verified 12/20/24 23:31
Sulfa (Sulfonamide Allergy Rash Verified 12/20/24 23:31
Antibiotics)
sulfite Allergy VASCULITIS Verified 12/20/24 23:31
artificial sweetners Allergy Unknown Uncoded 12/20/24 23:31
�Medication �Instructions �Recorded �Confirmed �Type
clopidogrel 75 mg tablet (Plavix) 75 mg PO DAILY Blood Clot 06/19/24 05/06/25 History
Prevention/Tx
atorvastatin 80 mg tablet 80 mg PO QPM High Cholesterol 10/29/24 05/06/25 History
cholecalciferol (vitamin D3) 50 50 mcg PO DAILY Supplement 10/29/24 05/06/25 History
mcg (2,000 unit) tablet (Vitamin
D3)
coQ10 (ubiquinol) 200 mg capsule 400 mg PO DAILY High Cholesterol 10/29/24 05/06/25 History
pantoprazole 40 mg tablet,delayed 40 mg PO DAILY Gastrointestinal 10/29/24 05/06/25 History
release (Protonix) Issue
pregabalin 150 mg capsule 300 mg PO HS diabetic neuropathy 10/29/24 05/06/25 History
sodium bicarbonate 650 mg tablet 650 mg PO BID Electrolyte Repletion 10/29/24 05/06/25 History
tramadol 50 mg tablet 50 mg PO Q6HPRN PRN moderate pains 10/29/24 05/06/25 History
insulin aspart U-100 100 unit/mL 5 unit (0.05 mL) SC AC Diabetes #5 11/16/24 05/06/25 Rx
(3 mL) subcutaneous pen (Novolog ea
FlexPen U-100 Insulin aspart)
aspirin 81 mg chewable tablet 81 mg PO DAILY Blood Clot 05/06/25 05/06/25 History
Prevention/Tx
calcitriol 0.25 mcg capsule 0.25 mcg PO Q48H Supplement 05/06/25 05/06/25 History
ezetimibe 10 mg tablet 10 mg PO DAILY High Cholesterol 05/06/25 05/06/25 History
furosemide 40 mg tablet (Lasix) 40 mg PO DAILY Fluid 05/06/25 05/06/25 History
Retention/Swelling
insulin glargine 100 unit/mL (3 24 unit SC BID Diabetes 05/06/25 05/06/25 History
mL) subcutaneous pen (Basaglar
KwikPen U-100 Insulin)
ipratropium 0.5 mg-albuterol 3 mg 3 ml inhalation R Q6HPRN PRN sob 05/06/25 05/06/25 History
(2.5 mg base)/3 mL nebulization
soln
metoprolol succinate 25 mg 25 mg PO DAILY Heart 05/06/25 05/06/25 History
tablet,extended release 24 hr Disease/Condition
Review of Systems
-
History Source: Patient
All other systems: Negative unless noted
Physical Exam
Vital Signs
Temp Pulse Resp BP Pulse Ox
98.1 F 54 15 139/50 98
05/07/25 07:41 05/07/25 09:00 05/07/25 09:00 05/07/25 08:57 05/07/25 09:00
GEN: NAD. AAOx3
HEENT: MMM, wearing glasses
LUNGS: RA. CTAB/L without wheeze
CV: SR on tele. Regular, no murmur
ABD: ND
EXT: No edema B/L LE
NEURO: Gross non-focal
SKIN: No rash
Lab Results
05/07/25 03:49
05/07/25 03:49
Troponin I 23.200 ng/ml H* D 05/07/25 03:49
Rys-B-Pmolenectso Pept 8100 pg/ml 05/06/25 16:21
Impression / Plan
-
PCP: Dr. Carlton
Power Bender Operator: Dr. VICKY Danielson
Impression:
Admitted with chest pain and NSTEMI 05/06/2025
NSTEMI, troponin up to 23 and trending
Admission for acute HF and elevated troponin 11/26/24 until 11/28/2024
Admission for NSTEMI, MV CAD with distal LM into circumflex and distal LM into proximal LAD PCI, acute HF and JESI 10/29/2024 until 11/16/2024
Abnormal LFTs, elevated AST
JESI on CKD 4
CAD
s/p 2.5 mm Xience OM1 PCI 02/12/2019
s/p Xience prox and overlapping previously placed distal OM-1 05/17/2019
s/p 2.5 mm Xience OM1 PCI 01/20/21
NSTEMI, s/p complex MATT distal LM into LCx/OM1 3.0 x 22 mm Medtron[employer] Hernan drug-eluting stent and from distal LM into proximal LAD 2.75 x 18 mm Medtronic Hernan drug-eluting stent 11/14/2024
PAD
s/p R common femoral endarterectomy w/ patch angioplasty and covered R iliac stent 01/2024
s/p right SFA angioplasty and stent 04/2020
h/o COVID 19 w/ residual parenchymal scarring
HTN
HLD
DM2
h/o Henoch-Sanna�nlein purpura
Glaucoma
Celiac compression syndrome s/p POWER SHOVEL OPERATOR HELPER for compression and dissected 2016
h/o gastric bypass 2010
h/o angioedema on MARCELL inhibitors
Aortic atherosclerosis
h/o orthostasis on Terazosin
h/o TIA 2016
Iron deficiency anemia
Echo 08/06/2020: EF 64%. Mild LVH. Normal RV. Mild MAC with mild MR. No AI or . Trace TR. PAP 29 mmHg
Echo 01/19/2021: EF 55-60%, stage I diastolic dysfunction, trace MR, trace TR, PAP 21 mmHg
Echo 10/29/2024: EF 40-45%, Stage I diastolic dysfunction, mild inferolateral and inferior hypokinesis
Echo 11/14/2024: EF 50 to 55%. No significant valvular disease. No pericardial effusion.
Echo 05/07/2025: Study pending
Cardiac cath 11/01/2024: Left main 60% distal. LAD 40% ostial. Circumflex: Hazy 80% ostial, stents in OM1 with moderate diffuse ISR, smaller daughter branch of OM1 with 70% stenosis. RCA 60 to 70% ostial stenosis
Cardiac cath 11/14/2024: Successful complex percutaneous coronary artery intervention with one 3.0 x 22 mm [employer]tron[employer] [place] drug-eluting stent from distal left main into left circumflex artery/OM1 and a second 2.75 x 18 mm Medtronic Hernan drug-eluting
stent from distal left main into proximal LAD
Plan:
-Patient came to the ER yesterday with chest pain and initial troponin was 1.65 and has now trended up to 23.2 prompting cardiology consultation for NSTEMI. Patient had a prolonged admission from 10/29/2024 until 11/16/2024 for NSTEMI and cardiac cath
showed MV CAD. Patient was initially seen in consultation by CT surgery and there is consideration for CABG, but this was ultimately deferred due to JESI on CKD and patient instead had high risk PCI with stenting of the distal left main into the
circumflex and distal left main into the proximal LAD on 11/14/2024. Patient was discharged home and then readmitted 2 weeks later with acute HF and CKD. Patient was then doing well and had last seen Dr. Danielson in the office on 01/31/2025. 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
for her and she started that job last week. In the meantime patient called the office with chest pain on 04/23/2025 and was advised to go to the ER for evaluation given her complex CAD history, she ended up not going to the ER because she was
afraid she would miss her first day of work. Instead she was taking NTG SL several times a day for chest pain. Chest pain is described as being present on a daily basis and comes and goes throughout the day, it is a deep aching feeling and feels
similar to her previous [facility] pain. She finally came to the ER last night because she ran out of her NTG SL tablets and the pharmacy would not refill her prescription. She is distressed because she only had 2 days at her new job before she had to
come to the ER and is now missing work. Despite this she is pain-free on heparin gtt and Nitropaste. Initial troponin is 1.65 and now up to 23.2.
-ECG reviewed by me is SR with anterolateral ST changes
-Patient is being managed for NSTEMI and is pain-free on heparin gtt and NTG paste at 1/2 inch every 6 hours.
-Cre is 2.8 on my review of labs 05/07/2025, this is above baseline. Patient follows with Dr. Cast as an outpatient for known CKD 4. Patient had previous JESI associated with cardiac cath and carotid CTA during her prolonged admission in the
spring. Will ask nephrology to consult and help us determine optimal timing of cardiac cath, nephrology consult ordered and communicated by me.
-If patient has recurrent chest pain we will change NTG paste to Nitro gtt, but presumably patient will not have LHC on 05/07/2025 due to JESI. Diet order resumed by me.
-Outpatient doses of aspirin and Plavix daily have been continued
-LDL 40 and outpatient dose of atorvastatin 80 mg daily was continued, but given AST that is more than twice the upper limit of normal will hold, orders placed by me. Zetia 10 mg daily has been continued
-Check echo, order placed by me
-Trend troponin to peak
-Patient was given her usual dose of Lasix 40 mg PO daily this morning, order now placed on hold pending nephrology evaluation, orders placed by me.
-proBNP was 8100 on admission, most recent heart failure admission proBNP levels have been over 12,000. CXR suggests possible interstitial pulmonary edema.
-EF 50 to 55% by echo 11/14/2024. No significant valve disease
-Outpatient dose of Toprol-XL 25 mg daily has been continued
-Patient was previously taking spironolactone 25 mg daily, but this was stopped following complex PCI and JESI 10/2024.
-Patient is allergic to MARCELL, she had angioedema. Will not add ARB/ARNI due to JESI on CKD 4
-Patient is on chronically on an SGLT2 inhibitor and would not start due to CKD 4
[2025-05-07 10:26] LABS: APTT 57.0 Sec (23.4-35.0)
[2025-05-07 10:54] LABS: Troponin I 23.700 ng/ml
[2025-05-07 11:29] LABS: Glucose - Point of Care 180 mg/dl (70-99)
[2025-05-07] MEDS: NOVOLOG FLEXPEN-LOW RESISTANCE 1 UNITS SC (11:40)
--- NOTE | 2025-05-07 11:41 | W.CON.NEPH ---
Addendum entered and electronically signed by Lisa Willingham MD 05/07/25 14:18:
IF resp status stable may try prophylactic IVF for cath
Original Note:
Consultation
-
Date/Time Consultation Requested: 05/07/25 0831
Date/Time Consultation Performed: 05/07/25 1145
Requesting Provider: Merlyn Santiago PA-C
Performing Provider: lisa Clement
Reason for Consultation: Jesi with CKD
Medical History
-
Chief Complaint: CP
History of Present Illness:
75F Non smoker HX CAD, status post cardiac stent placement in October 2024, on DAPL , chronic HFpEF on lasix,, CKD4 baseline 2-2.[address] Cast, chr met acidosis on po bicarb therapy, insulin dependant DM, AC Dz, ILDzx Presented to the ER last
evening with the chest pain. He reportedly is being going on for a week and got worse yesterday and she used up her nitroglycerin at home and completely ran out of it making her to present to ER. She is now diagnosed with NSTEMI with increasing
troponin levels 23. Her creatinine is at 2.9 higher than baseline. Cardiology weighing in probably need to do left heart catheterization. Nephrology asked to evaluate risk of contrast. Patient reports no active chest pain. No shortness of
breath. 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 She is eating well and gaining body weight, denies any edema. No dysuria. No fevers. She had mild cough for which she started Zithromax last week through her
PCP. Chest x-ray yesterday shows mild pulmonary edema vs PNA and started on the Lasix.
Past Medical History
CKD 4
CAD /p stents
HTN
HLD
DM2
h/o Henoch-Sanna�nlein purpura
Glaucoma
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
h/o gastric bypass 2010
h/o angioedema on MARCELL inhibitors
Aortic atherosclerosis
h/o orthostasis on Terazosin
h/o TIA 2016
anemia
Past Surgical History: Cardiac (stents) and Other (L hip replacement 05/2024 and Tonsilectomy)
Social History
Tobacco: Non-Smoker
Alcohol: None
Drug: None
Personal:
Living: With Family
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
Family History
Family History: Not Pertinent
Allergies / Home Medications
Allergy/AdvReac Type Severity Reaction Status Date / Time
MARCELL Inhibitors (Marcell Allergy Swelling/AN Verified 12/20/24 23:31
Inhibitors) GIOEDEMA
chamomile flower Allergy Rash Verified 12/20/24 23:31
Sulfa (Sulfonamide Allergy Rash Verified 12/20/24 23:31
Antibiotics)
sulfite Allergy VASCULITIS Verified 12/20/24 23:31
artificial sweetners Allergy Unknown Uncoded 12/20/24 23:31
�Medication �Instructions �Recorded �Confirmed �Type
clopidogrel 75 mg tablet (Plavix) 75 mg PO DAILY Blood Clot 06/19/24 05/06/25 History
Prevention/Tx
atorvastatin 80 mg tablet 80 mg PO QPM High Cholesterol 10/29/24 05/06/25 History
cholecalciferol (vitamin D3) 50 50 mcg PO DAILY Supplement 10/29/24 05/06/25 History
mcg (2,000 unit) tablet (Vitamin
D3)
coQ10 (ubiquinol) 200 mg capsule 400 mg PO DAILY High Cholesterol 10/29/24 05/06/25 History
pantoprazole 40 mg tablet,delayed 40 mg PO DAILY Gastrointestinal 10/29/24 05/06/25 History
release (Protonix) Issue
pregabalin 150 mg capsule 300 mg PO HS diabetic neuropathy 10/29/24 05/06/25 History
sodium bicarbonate 650 mg tablet 650 mg PO BID Electrolyte Repletion 10/29/24 05/06/25 History
tramadol 50 mg tablet 50 mg PO Q6HPRN PRN moderate pains 10/29/24 05/06/25 History
insulin aspart U-100 100 unit/mL 5 unit (0.05 mL) SC AC Diabetes #5 11/16/24 05/06/25 Rx
(3 mL) subcutaneous pen (Novolog ea
FlexPen U-100 Insulin aspart)
aspirin 81 mg chewable tablet 81 mg PO DAILY Blood Clot 05/06/25 05/06/25 History
Prevention/Tx
calcitriol 0.25 mcg capsule 0.25 mcg PO Q48H Supplement 05/06/25 05/06/25 History
ezetimibe 10 mg tablet 10 mg PO DAILY High Cholesterol 05/06/25 05/06/25 History
furosemide 40 mg tablet (Lasix) 40 mg PO DAILY Fluid 05/06/25 05/06/25 History
Retention/Swelling
insulin glargine 100 unit/mL (3 24 unit SC BID Diabetes 05/06/25 05/06/25 History
mL) subcutaneous pen (Basaglar
KwikPen U-100 Insulin)
ipratropium 0.5 mg-albuterol 3 mg 3 ml inhalation R Q6HPRN PRN sob 05/06/25 05/06/25 History
(2.5 mg base)/3 mL nebulization
soln
metoprolol succinate 25 mg 25 mg PO DAILY Heart 05/06/25 05/06/25 History
tablet,extended release 24 hr Disease/Condition
Review of Systems
-
All other systems: Negative unless noted
Physical Exam
Vital Signs
Vital Signs
Temp Pulse Resp BP Pulse Ox
98.1 F 57 12 139/50 99
05/07/25 07:41 05/07/25 09:30 05/07/25 09:30 05/07/25 08:57 05/07/25 09:30
Lab Results
WBC 8.6 10^3/uL (4.8-10.8) 05/07/25 03:49
RBC 3.83 10^6/uL (4.20-5.40) L 05/07/25 03:49
Hgb 9.6 g/dL (12.0-16.0) L 05/07/25 03:49
Hct 32.0 % (37.0-47.0) L 05/07/25 03:49
Plt Count 172 10^3/uL (130-400) 05/07/25 03:49
Sodium 137 mmol/L (135-145) 05/07/25 03:49
Potassium 4.0 mmol/L (3.5-5.1) 05/07/25 03:49
Chloride 104 mmol/L (98-107) 05/07/25 03:49
Carbon Dioxide 27 mmol/L (22-30) 05/07/25 03:49
BUN 66 mg/dl (7-17) H 05/07/25 03:49
Creatinine 2.8 mg/dL (0.6-1.0) H 05/07/25 03:49
eGFR 17.08 05/07/25 03:49
Glucose 75 mg/dl (70-99) 05/07/25 03:49
Calcium 8.3 mg/dl (8.4-10.2) L 05/07/25 03:49
Nic-V-Ffsrxaksbul Pept 8100 pg/ml 05/06/25 16:21
Albumin 3.6 g/dl (3.5-5.0) 05/07/25 03:49
Physical Exam
General: Awake, Alert, Oriented, AOx3, No Distress and Nontoxic
HEENT: EOMI, Anicteric, Conjunctivae Clear and Facial Symmetry
Respiratory: Crackels, Normal Excursion and Nonlabored Respirations
Cardiac: S1/S2 and Regular Rate/Rhythm
Breast: Deferred by me
Abdomen: Soft, Nontender and Nondistended
Musculoskeletal: No Cyanosis and No Edema
Skin: No Rash
Neuro: Nonfocal/Grossly Intact
Psych: Mood/afflect pleasant, Insight/judgement good and Appropriate
Assessment/Plan
-
IMP:
NSTEMI
CHr CHFpEF
chronic ILD/fibrosis
JESI with CKD stage 4 (baseline Cr� 2.5)-follows Dr Cast
DM2
CAD hx of [place], hx of stents last in October 2024
HTN
DM
GERD
h/o ACEI angioedema
h/o Henoch-Schonlein purpura
Gastric bypass 2010
ALISHA, mild, with nocturnal hypoxemia
PAD, SFA stent Apr 2020
Plan:
A/w NSTEMI
mild Jesi with CKD4 -cr mildly higher than baseline
noted need LHC per cards for ACS, currently on heparin gtt
reviewed wiht pt in detail about high risk of BERYL and dialysis
she understands risks and accepts to proceed with cath
If possible would wait cr to stabilize prior cath if not proceeed as planned
no modifiable risk factors
would hold lasix on the day of cath
met acidosis stable, cotn po bicarb
maintain FR
BP soft, monitor with bb
lyrica dose reduced
follow labs and wts
d/w pt in detail
d/w nursing
[2025-05-07 13:20] LABS: Glucose - Point of Care 146 mg/dl (70-99)
--- NOTE | 2025-05-07 14:33 | CM ---
I.A: Completed By OLENA Hunt
Patient lives with her in a 3 Story Home with 2 TIMOTHY, BA on the 2nd, powder room on the , uses a Rolling Walker, has a Nebulizer, No VN/PT, Cardiac Rehab in the past, and [facility] last May.
PCP: Dr. Isaak Carlton
Pharmacy: [facility] in [place] on .
Patient has transportation home, CM to follow for DC needs. PLAN: Home No needs vs. VN/PT.
--- NOTE | 2025-05-07 14:49 | PTCARENOTE ---
Patient AOx3. On RA with SpO2 greater than 92%. NSR-sinus alfredito on the monitor. BP stable. Assist x1 when OOB. Tolerating. Hypoglycemic protocol followed. Heparin gtt per order. Nitro paste Q6 hours. Denies chest pain. Trending trop. Call duran
within reach, bed in lowest position, and bed of wheels locked.
[2025-05-07 17:04] LABS: Glucose - Point of Care 75 mg/dl (70-99)
[2025-05-07 17:50] LABS: APTT 83.8 Sec (23.4-35.0)
[2025-05-07 18:10] LABS: Troponin I 24.900 ng/ml
[2025-05-07 18:12] LABS: VerifyNow PRU 45 PRU (180-376)
[2025-05-07 21:57] LABS: Glucose - Point of Care 160 mg/dl (70-99)
[2025-05-07] MEDS: LANTUS 0.06 UNITS SC (22:30)
[2025-05-07] MEDS: LYRICA 150 MG PO (22:30)
[2025-05-08] VITALS (66 sets, daily range): BP systolic 63–189; BP diastolic 37–92; BMI 27.4
[2025-05-08 00:17] LABS: APTT 149.0 Sec (23.4-35.0)
[2025-05-08 00:33] LABS: Troponin I 18.400 ng/ml
[2025-05-08] MEDS: NITRO-BID 0.5 INCH TOPICAL ×4 (00:44→21:20)
--- NOTE | 2025-05-08 00:54 | PTCARENOTE ---
Assumed care for patient overnight. Pt AAOx3, pleasant. Reached out to TERRI Laura regarding Lantus, pt hypoglycemic the night prior, GATE CUTTERESTEFANY Yoderti decreased dose of Lantus overnight, see AUG. Heparin gtt cont, see worklist intervention. Pt remains on
RA, 98%. Troponin 18.400, trending downwards. Pt denies any chest pain. Pt ambulated to the bathroom and assisted w/ hygiene. Pt rings appropriately, call duran within reach.
[2025-05-08] MEDS: TYLENOL 650 MG PO ×2 (01:38→21:21)
[2025-05-08 03:30] LABS: Glucose - Point of Care 176 mg/dl (70-99)
[2025-05-08 05:00] LABS: Blood Urea Nitrogen 69 mg/dl (7-17); Calcium 8.1 mg/dl (8.4-10.2); Carbon Dioxide 29 mmol/L (22-30); Chloride 103 mmol/L (98-107); Estimated Creatinine Clearance 14 ml/min; Glucose 147 mg/dl (70-99); Potassium 4.4 mmol/L (3.5-5.1); Sodium 135 mmol/L (135-145); eGFR 16.37
[2025-05-08] MEDS: NOVOLOG FLEXPEN-LOW RESISTANCE 1 UNITS SC (07:44)
[2025-05-08] MEDS: PROTONIX 40 MG PO (07:45)
[2025-05-08] MEDS: PLAVIX 75 MG PO (07:45)
[2025-05-08] MEDS: LOW STRENGTH ASPIRIN 81 MG PO (07:45)
[2025-05-08] MEDS: SODIUM BICARBONATE 650 MG PO ×2 (07:45→20:32)
[2025-05-08] MEDS: LASIX 40 MG PO (07:45)
[2025-05-08] MEDS: TOPROL XL 25 MG PO (07:46)
[2025-05-08] MEDS: ZETIA 10 MG PO (07:46)
[2025-05-08 07:49] LABS: Glucose - Point of Care 152 mg/dl (70-99)
[2025-05-08] MEDS: HEPARIN 25000 UNITS/250 ML IV (08:44)
[2025-05-08 08:53] LABS: APTT 73.1 Sec (23.4-35.0)
[2025-05-08 10:00] LABS: ALT (SGPT) 24 U/L (0-35); AST (SGOT) 85 U/L (14-36); Alkaline Phosphatase 94 U/L (38-126)
--- NOTE | 2025-05-08 10:05 | W.PN.CARDCBS ---
Today's Communication / Plan
-
Left heart cath later today
Impression / Plan
-
PCP: Dr. Carlton
Dry Placer Machine Operator: Dr. VICKY Danielson
Impression:
Admitted with chest pain and NSTEMI 05/06/2025
NSTEMI, troponin up to 23 and trending
Admission for acute HF and elevated troponin 11/26/24 until 11/28/2024
Admission for NSTEMI, MV CAD with distal LM into circumflex and distal LM into proximal LAD PCI, acute HF and JESI 10/29/2024 until 11/16/2024
Abnormal LFTs, elevated AST
JESI on CKD 4
CAD
s/p 2.5 mm Xience OM1 PCI 02/12/2019
s/p Xience prox and overlapping previously placed distal OM-1 05/17/2019
s/p 2.5 mm Xience OM1 PCI 01/20/21
NSTEMI, s/p complex MATT distal LM into LCx/OM1 3.0 x 22 mm Medtronics Hernan drug-eluting stent and from distal LM into proximal LAD 2.75 x 18 mm Medtronic Hettick drug-eluting stent 11/14/2024
PAD
s/p R common femoral endarterectomy w/ patch angioplasty and covered R iliac stent 01/2024
s/p right SFA angioplasty and stent 04/2020
h/o COVID 19 w/ residual parenchymal scarring
HTN
HLD
DM2
h/o Henoch-Sanna�nlein purpura
Glaucoma
Celiac compression syndrome s/p ASSET PROTECTION MANAGER for compression and dissected 2016
h/o gastric bypass 2010
h/o angioedema on ZAY inhibitors
Aortic atherosclerosis
h/o orthostasis on Terazosin
h/o TIA 2016
Iron deficiency anemia
Echo 08/06/2020: EF 64%. Mild LVH. Normal RV. Mild MAC with mild MR. No AI or . Trace TR. PAP 29 mmHg
Echo 01/19/2021: EF 55-60%, stage I diastolic dysfunction, trace MR, trace TR, PAP 21 mmHg
Echo 10/29/2024: EF 40-45%, Stage I diastolic dysfunction, mild inferolateral and inferior hypokinesis
Echo 11/14/2024: EF 50 to 55%. No significant valvular disease. No pericardial effusion.
Echo 05/07/2025: Study pending
Cardiac cath 11/01/2024: Left main 60% distal. LAD 40% ostial. Circumflex: Hazy 80% ostial, stents in OM1 with moderate diffuse ISR, smaller daughter branch of OM1 with 70% stenosis. RCA 60 to 70% ostial stenosis
Cardiac cath 11/14/2024: Successful complex percutaneous coronary artery intervention with one 3.0 x 22 mm Medtronics Hettick drug-eluting stent from distal left main into left circumflex artery/OM1 and a second 2.75 x 18 mm Medtronic Hernan drug-eluting
stent from distal left main into proximal LAD
Plan:
-Presenting with chest discomfort found to have rising troponin which peaked at 24.9 consistent with NSTEMI
-Nitropatch was applied and patient has been chest pain-free since that time
-Would continue medical management of CAD with aspirin/Plavix, high intensity statin, beta-pasha and heparin drip x 24 hours
-Echo 05/07/2025 with mildly reduced LV systolic function which is new compared to prior echo
-Known CKD and creatinine at the time of presentation was 2.9 which appears to be close to her baseline.
-I have recommended coronary angiography. Patient is agreeable and understands the risk of contrast-induced kidney injury. Discussed with nephrology and they plan to hydrate with IV fluid.
-proBNP was 8100 on admission, most recent heart failure admission proBNP levels have been over 12,000. CXR suggests possible interstitial pulmonary edema.
-Continue PO lasix for now. May require IV lasix post-procedure.
-Outpatient dose of Toprol-XL 25 mg daily has been continued
-Avoid ZAY/ARB/ARNI, MRA, SGLT2 given CKD
Discussed with nursing, nephrology, interventional cardiology
Total time 52 minutes
Patient came to the ER yesterday with chest pain and initial troponin was 1.65 and has now trended up to 23.2 prompting cardiology consultation for NSTEMI. Patient had a prolonged admission from 10/29/2024 until 11/16/2024 for NSTEMI and cardiac cath
showed MV CAD. Patient was initially seen in consultation by CT surgery and there is consideration for CABG, but this was ultimately deferred due to JESI on CKD and patient instead had high risk PCI with stenting of the distal left main into the
circumflex and distal left main into the proximal LAD on 11/14/2024. Patient was discharged home and then readmitted 2 weeks later with acute HF and CKD. Patient was then doing well and had last seen Dr. Danielson in the office on 01/31/2025. 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
for her and she started that job last week. In the meantime patient called the office with chest pain on 04/23/2025 and was advised to go to the ER for evaluation given her complex CAD history, she ended up not going to the ER because she was
afraid she would miss her first day of work. Instead she was taking NTG SL several times a day for chest pain. Chest pain is described as being present on a daily basis and comes and goes throughout the day, it is a deep aching feeling and feels
similar to her previous [place] pain. She finally came to the ER last night because she ran out of her NTG SL tablets and the pharmacy would not refill her prescription. She is distressed because she only had 2 days at her new job before she had to
come to the ER and is now missing work. Despite this she is pain-free on heparin gtt and Nitropaste. Initial troponin is 1.65 and now up to 23.2.
Progress Note - Dry Placer Machine Operator
Subjective
Date of Service: May 08, 2025
NAOE. Resting comfortably in bed. No further chest discomfort since her arrival.
Objective
Labs:
05/07/25 03:49
05/08/25 04:13
Labs
Hgb 9.6 g/dL (12.0-16.0) L 05/07/25 03:49
Hct 32.0 % (37.0-47.0) L 05/07/25 03:49
Plt Count 172 10^3/uL (130-400) 05/07/25 03:49
APTT 73.1 Sec (23.4-35.0) H 05/08/25 08:34
Sodium 135 mmol/L (135-145) 05/08/25 04:13
Potassium 4.4 mmol/L (3.5-5.1) 05/08/25 04:13
BUN 69 mg/dl (7-17) H 05/08/25 04:13
Creatinine 2.9 mg/dL (0.6-1.0) H 05/08/25 04:13
Glucose 147 mg/dl (70-99) H 05/08/25 04:13
Troponins
05/06/25 05/06/25 05/06/25
15:20 15:53 16:21
Troponin I Cancelled Cancelled 1.650 H*
05/06/25 05/06/25 05/07/25
21:46 23:12 03:49
Troponin I 14.700 H* D Cancelled 23.200 H* D
05/07/25 05/07/25 05/07/25
10:03 17:21 21:00
Troponin I 23.700 H* 24.900 H* Cancelled
05/07/25
23:51
Troponin I 18.400 H* D
Vital Signs and I&O:
Vital Signs
Temp Pulse Resp BP Pulse Ox
97.8 F 64 18 114/50 98
05/07/25 22:44 05/08/25 08:15 05/08/25 08:15 05/08/25 08:15 05/08/25 09:35
Vital Signs
Temp Pulse Resp BP Pulse Ox
97.8 F 64 18 114/50 98
05/07/25 22:44 05/08/25 08:15 05/08/25 08:15 05/08/25 08:15 05/08/25 09:35
Intake & Output
05/06/25 05/07/25 05/08/25 05/09/25
06:59 06:59 06:59 06:59
Intake Total 480 / 480 240 / 240
Balance 480 / 480 240 / 240
Physical Exam
Physical Exam
Gen: NAD, AAOx3
HEENT: NC/AT, sclera anicteric
Neck: No JVD
CV: RRR, NL s1/s2, no M/R/G
Lungs: crackles at bases b/l on RA
Abd: S/ND
Ext: No LE edema
Skin: Warm, dry
Neuro: Non-focal
[2025-05-08] MEDS: LIPITOR 80 MG PO (11:13)
[2025-05-08] MEDS: NOVOLOG FLEXPEN-LOW RESISTANCE SC ×2 (11:32→17:29)
--- NOTE | 2025-05-08 11:48 | W.PN.NEPH.PH ---
Today's Communication / Plan
-
Bicarb prophylaxis okay with cardiac cath today
Assessment/Plan
-
IMP:
NSTEMI
CHr CHFpEF
chronic ILD/fibrosis
JESI with CKD stage 4 (baseline Cr� 2.5)-follows Dr Cast
DM2
CAD hx of [place], hx of stents last in October 2024
HTN
DM
GERD
h/o ACEI angioedema
h/o Henoch-Schonlein purpura
Gastric bypass 2010
ALISHA, mild, with nocturnal hypoxemia
PAD, SFA stent Apr 2020
Plan:
A/w NSTEMI
mild Jesi with CKD4 -cr mildly higher than baseline
noted need LHC per cards for ACS, currently on heparin gtt
reviewed wiht pt in detail about high risk of BERYL and dialysis
she understands risks and accepts to proceed with cath
no modifiable risk factors
hold lasix on the day of cath
met acidosis stable, cotn po bicarb
maintain FR
Discussed with cardiology as okay to proceed with catheterization as she has chronic kidney disease stage IV at baseline GFR minimally changed despite elevated creatinine
bicarbonate prophylaxis given
follow labs and wts
d/w pt in detail
d/w nursing

Critical care time 31 minutes patient has high risk
-
-
Date of Service: May 08, 2025
CC / HPI / ROS
-
Chief Complaint:
Chest pain shortness of breath
History of Present Illness:
Mild acute on chronic kidney disease in setting of CAD baseline creatinine 2 point creatinine peaked at 2.9 minimal change in GFR with increased creatinine
Review of Systems:
Currently no chest pain or shortness of breath
Labs
-
Labs:
WBC 8.6 10^3/uL (4.8-10.8) 05/07/25 03:49
RBC 3.83 10^6/uL (4.20-5.40) L 05/07/25 03:49
Hgb 9.6 g/dL (12.0-16.0) L 05/07/25 03:49
Hct 32.0 % (37.0-47.0) L 05/07/25 03:49
Plt Count 172 10^3/uL (130-400) 05/07/25 03:49
Sodium 135 mmol/L (135-145) 05/08/25 04:13
Potassium 4.4 mmol/L (3.5-5.1) 05/08/25 04:13
Chloride 103 mmol/L (98-107) 05/08/25 04:13
Carbon Dioxide 29 mmol/L (22-30) 05/08/25 04:13
BUN 69 mg/dl (7-17) H 05/08/25 04:13
Creatinine 2.9 mg/dL (0.6-1.0) H 05/08/25 04:13
eGFR 16.37 05/08/25 04:13
Glucose 147 mg/dl (70-99) H 05/08/25 04:13
Calcium 8.1 mg/dl (8.4-10.2) L 05/08/25 04:13
Dtd-T-Atmrszanxqz Pept 8100 pg/ml 05/06/25 16:21
Albumin 3.6 g/dl (3.5-5.0) 05/07/25 03:49
Physical Exam
-
Vital Signs:
Vital Signs
Temp Pulse Resp BP Pulse Ox
97.9 F 56 15 142/82 98
05/08/25 07:25 05/08/25 11:13 05/08/25 10:00 05/08/25 11:13 05/08/25 09:35
Cardiovascular:: Regular rate and rhythm
Respiratory:: Bilateral: Coarse, Bilateral: Rales and Bilateral: Rhonchi
Lung Excursion:: Normal
Abdomen:: Nontender and Soft
Bowel Sounds:: Normal
Extremity Edema:: None: Bilateral:
Cortez Catheter: No
--- NOTE | 2025-05-08 11:54 | W.PN.HOSP.TC ---
Addendum entered and electronically signed by Kellee Rios MD 05/08/25 13:17:
Attending�addendum:
I saw and evaluated the patient. I reviewed the resident�s note and agree with findings and plan as documented in the resident�s note.��patient seen and examined at bedside, denies any chest pain currently or shortness of breath, no abdominal pain,
no nausea, no vomiting, no diarrhea or constipation.
Physical�exam:
GENERAL : Patient is awake, alert, oriented x3
HEENT: Nonicteric sclerae, PERRLA, EOMI. Oropharynx clear. Moist mucous membranes. Conjunctivae appear well perfused.
CHEST: Chest wall is nontender.
HEART: Regular rate and rhythm without murmurs.
LUNGS: Clear to auscultation bilaterally.
ABDOMEN: Soft, positive bowel sounds, nontender, no organomegaly.
RECTAL: Deferred.
MUSCLES/EXTREMITIES: No abnormal range of motion, no swelling.SKIN: No rash, no excessive bruising, petechiae, or purpura.
NEUROLOGIC: Cranial nerves II-XII intact without motor/sensory deficit.
�
Assessment/plan:
Non-STEMI.
Appreciate cardiology/nephrology input.
Continue heparin drip.
P2 Y12 45
Cardiac cath today
Chronic diastolic CHF.
Lasix on hold in setting of JESI
Acute kidney injury on CKD 4.
Appreciate nephrology input
CODE STATUS: Full code
DVT prophylaxis: Heparin
Diet: Diabetic
�
Total time spent on today�s encounter was 60 minutes which included time spent in counseling the patient/family regarding diagnosis and treatment plan as listed above, goals of care, and symptom management. Case was discussed with nursing staff,
specialists, and care coordinators/case management. All labs and imaging personally reviewed by me. Remainder the time spent in detailed review of previous records, lab data, imaging, and other medical provider documentation.
Original Note:
Today's Communication/Plan
-
.
Assessment / Plan
Assessment / Plan
Steph Luong is a 75 y/o F w/ PMHX CAD (s/p multiple PCI/stent/MATT with most recent being 11/14/24), GERD, HTN, HLD, IDDM, CKD Stage 4, celiac aa. dissection, chronic anemia, and ILD who is presenting with 1 week of substernal, daily chest pain
episodes that resolve with SL NTG with marked elevation and uptrend of cardiac biomarkers and EKG showing ischemic changes in the lateral leads. Patient was admitted to the IMU and started on heparin drip, NTG paste, and made NPO for invasive
coronary angiography.
1. NSTEMI
- Substernal anginal symptoms x 1 week alleviated by NTG; continue NTG paste; if return of pain, consider NTG gtt
- Troponin (ED): 1.65 --> 14.7 --> 23.2 --> 18; troponin trended to peak
- ECG showing anterolateral ST changes
- Continue Heparin gtt, follow PTT
- Appreciate cardiology recommendations; consideration of invasive coronary angiography
- Continue ASA/Plavix/Statin/Zetia
- P2y12 testing shows adequate antiplatelet response to Plavix
2. Chronic HFpEF
- CXR suggestive of mild interstitial pulmonary edema
- BNP 8100 (77402 at last admission)
- Euvolemia on exam
- Daily weights/I/Os
- ECHO per cardiology to check LV fcn
3. Acute Kidney Injury or CKD 4
- Creatinine on admission 2.9 (baseline 2.3-2.5); still 2.9 this AM
- Decreased renal perfusion in setting of LV dysfunction 2/2 NSTEMI? Check ECHO
- Nephrology reccs: prefer to wait prior to intervention, but if benefits outweigh risks, okay with proceding with cath
- Continue Bicarb supplement
- Follow BMP
4. History of GERD
- Continue Pantoprazole
- Alternative considered, but adequate antiplatelet response to Plavix
5. HTN
- BPs are at goal; continue to monitor
6. HLD
- Statin restarted
7. Transaminitis
- Mild AST elevation; improved after statin held
- Statin restarted today
- Repeat CMP in AM
- Potential from decreased perfusion in setting of LV dysfcn 2/2 NSTEMI? Echo pending.
8. IDDM
- Continue Lantus and corrective
- Hypoglycemia this morning, but diet restarted since procedure deferred
9. Chronic Anemia
- Daily CBC
10. Interstitial Lung Disease
- Stable
11. Mild asymptomatic Hyponatremia
- Repeat BMP in AM
Code: FULL
Diet: NPO
DVT: Hep
Anticipated Discharge: 24 - 48 hours
Subjective/Interval History
-
Date of Service: May 08, 2025
Patient seen and examined while resting comfortably in bed.
No acute complaints this morning.
Noted was one episode of SOB last night that resolved without intervention.
Otherwise no acute complaints including chest pain, lower extremity edema.
Objective Data
-
Labs:
Laboratory Results
05/07/25 05/08/25 05/08/25
23:51 04:13 08:34
APTT 149.0 H 73.1 H
Sodium 135
Potassium 4.4
Chloride 103
Carbon Dioxide 29
BUN 69 H
Creatinine 2.9 H
Glucose 147 H
Calcium 8.1 L
Total Bilirubin 0.3
AST 85 H
ALT 24
Alkaline Phosphatase 94
05/08/25
15:00
APTT Pending
Sodium
Potassium
Chloride
Carbon Dioxide
BUN
Creatinine
Glucose
Calcium
Total Bilirubin
AST
ALT
Alkaline Phosphatase
Vital Signs:
Vital Signs
Temp Pulse Resp BP Pulse Ox
97.9 F 56 15 142/82 98
05/08/25 07:25 05/08/25 11:13 05/08/25 10:00 05/08/25 11:13 05/08/25 09:35
I&O
05/07/25 05/08/25 05/09/25
06:59 06:59 06:59
Intake Total 480 / 480 240 / 240
Balance 480 / 480 240 / 240
Review of Systems
-
History Source: Patient
All other systems: Reviewed and negative
Physical Exam
-
General: No Apparent Distress, Comfortable and Conversant
HEENT: Normocephalic, Atraumatic and Moist Mucous Membranes
Respiratory: Crackles (chronic) and Non Labored Respirations
Cardiac: Regular Rhythm
GI: Soft
Musculoskeletal: No Clubbing, No Cyanosis and No Edema
Skin: Warm
Neuro: Awake, Alert and Oriented
Psych: Calm
Data Reviewed
-
Labs: Labs Reviewed by me and Discussed with Patient
[2025-05-08 12:01] LABS: Glucose - Point of Care 221 mg/dl (70-99)
[2025-05-08] MEDS: NOVOLOG FLEXPEN-LOW RESISTANCE 2 UNITS SC (12:06)
[2025-05-08] MEDS: SODIUM BICARBONATE 1150 MEQ IV (13:11)
--- NOTE | 2025-05-08 13:20 | PTCARENOTE ---
Updates thru shift with IMU team. Cardiology at bedside thru am discuss prep and plan for heart cath. Update with renal plan of cares. NaHCO3 drip ordered as per protocol and follow up rates as ordered. Assessment unchanged and as documented.
Following vs trends. Voided, ambulated to bathroom precath. Return to bed with one person supervision. Teaching and supportive cares ongoing.
--- NOTE | 2025-05-08 15:30 | PTCARENOTE ---
Addendum entered by Julisa Michel RN 05/08/25 17:57:
irrigation laborer nurse, Faraz, in room to pull arterial sheath. While holding pressure on groin, pt's BP dropped to 63/37, became diaphoretic. Accu check 145. Placed in trendelenburg position, IVFs initiated. BP rebounded to 102/54, then 137/52. Pt feels
better, Dr. Vargas updated.
Original Note:
Received pt from section laborer, monitor showing SB-SR, VSS. Left groin sheath and lee intact, no bleeding, no hematoma, +pulses BL. Educated pt on activity restrictions. Oriented to room, call duran in reach.
--- NOTE | 2025-05-08 15:53 | ITS.CL.CATH ---
Sales Engineering Manager - Catheterization
Cardiac Catheterization
Procedure Report:
LEFT HEART CATHETERIZATION
Date of Procedure: May 08, 2025
Referring: Jackson Clements MD
PROCEDURES:
1. Left heart catheterization, coronary angiogram.
2. Moderate sedation.
INDICATION: NSTEMI
ACCESS: Right common femoral artery, 6Fr. sheath, under US guidance using micropuncture kit.
HEMODYNAMICS : (mmHg)
AO (s/d) : 193/50
LVEDP : 40
No significant gradient across the aortic valve to suggest aortic stenosis.
CORONARY FINDINGS
DOMINANCE: Right
LEFT MAIN: 50-60% tubular distal left main in-stent restenosis extensive into ostial LAD And LCx
LEFT ANTERIOR DESCENDIN-70% ostial LAD in-stent restenosis with diffuse noncritical luminal irregularities throughout the mid to distal vessel. Several small diagonal branches arise from the mid LAD.
CIRCUMFLEX: Hazy 90-95% ostial circumflex in-stent re-stenosis. There are stents in OM1 with moderate diffuse in-stent restenosis. OM1 is a moderate caliber vessel that bifurcates into 2 small caliber daughter branches distally beyond the stented
segment. The larger daughter branch has a 70% stenosis. The AV circumflex gives rise to several additional small obtuse marginal branches
RIGHT CORONARY ARTERY: The right coronary artery is a dominant vessel with a stable 60-70% ostial stenosis. No pressure dampening or ventricularization occurred with engagement of a 5 German diagnostic catheter. The mid to distal right coronary
artery has only minor irregularities but no focal high-grade obstructive stenosis
SEDATION: 37 minutes of procedural sedation was utilized. IV Midazolam and IV Fentanyl were administered. An independent medical office professional instructor was present to assist with and help manage the patient's level of consciousness and physiologic status.
RADIATION SUMMARY: Fluoro Time (min): 2.5, Dose (mGy): 177.42, DAP (Gy.cm2) : 11.23
Closure Device: There were no immediate intra-procedural complications. The sheath was pulled in the general labor forklift operator and a vascular-band applied to the right wrist for radial artery hemostasis using the patent hemostasis technique.
CONCLUSIONS
1. Severe rapid/accelerated in-stent restenosis of distal LM extending into ostial LAD and LCX after recently placed stents on November 14, 2024.
2. Severely elevated LVEDP in setting of severe hypertension.
RECOMMENDATIONS
1. Manual pressure at LCFA sheath site once BP < 150mmHG.
2. Continue aggressive medical therapy and risk factor modification for secondary CAD prevention. GDMT for ischemic CM.
3. Hydrate with normal saline to mitigate the risk of contrast-induced acute kidney injury in setting of known CKD Stage 4.
4. Heart team discussion in regards to best next steps.
Copy to: Jackson Medrano
Daniela Vargas MD, FAC, [facility]
--- NOTE | 2025-05-08 16:25 | W.PN.CARDCBS ---
Today's Communication / Plan
-
Plan:
-Presenting with chest discomfort found to have rising troponin which peaked at 24.9 consistent with NSTEMI, trop downtrending. CP free. s/p 48hrs of IV heparin.
-s/p cath this afternoon with ongoing heart team discussion with IC partners and CT surgery to discuss next best option for patient given accelerated extensive ISR of recently placed stents via complex bifurcational IVUS guided PCI. Percutaneously
may have better role for possible drug coated balloons vs. laser rather than adding another layer of stents vs. CABG vs. hybrid approach and consideration for MIDCAB if feasible. Explained all this in extensively detail to patient and son, Dangelo who
is sonar watchstander.
-Continue Aspirin/Plavix, high intensity statin, beta-pasha
-Echo 05/07/2025 with mildly reduced LV systolic function. cont GDMT optimization given ischemic CM.
-Known CKD and creatinine at the time of presentation was 2.9 which appears to be close to her baseline. High risk of BERYL. Nephrology following.
-proBNP was 8100 on admission, most recent heart failure admission proBNP levels have been over 12,000. CXR suggests possible interstitial pulmonary edema. LVEDP elevated at 35-40mmHG, IV diuretics. Close monitoring of renal fxn, ins and outs,
daily upright weights.
-Outpatient dose of Toprol-XL 25 mg daily has been continued.
-Avoiding ZAY/ARB/ARNI, MRA, SGLT2 given CKD
Discussed with IC partners, CT surgery, sonDangelo and nursing.
Total time 52 minutes
Impression / Plan
-
PCP: Dr. Carlton
Floor Coverer Apprentice: Dr. VICKY Danielson
Impression:
Admitted with chest pain and NSTEMI 05/06/2025
NSTEMI, troponin up to 23 and trending
Admission for acute HF and elevated troponin 11/26/24 until 11/28/2024
Admission for NSTEMI, MV CAD with distal LM into circumflex and distal LM into proximal LAD PCI, acute HF and JESI 10/29/2024 until 11/16/2024
Abnormal LFTs, elevated AST
JESI on CKD 4
CAD
s/p 2.5 mm Xience OM1 PCI 02/12/2019
s/p Xience prox and overlapping previously placed distal OM-1 05/17/2019
s/p 2.5 mm Xience OM1 PCI 01/20/21
NSTEMI, s/p complex MATT distal LM into LCx/OM1 3.0 x 22 mm [employer] [place] drug-eluting stent and from distal LM into proximal LAD 2.75 x 18 mm [employer] [place] drug-eluting stent 11/14/2024
PAD
s/p R common femoral endarterectomy w/ patch angioplasty and covered R iliac stent 01/2024
s/p right SFA angioplasty and stent 04/2020
h/o COVID 19 w/ residual parenchymal scarring
HTN
HLD
DM2
h/o Henoch-Sanna�nlein purpura
Glaucoma
Celiac compression syndrome s/p Y[employer] SKE[employer] EXAMINER for compression and dissected 2016
h/o gastric bypass 2010
h/o angioedema on ZAY inhibitors
Aortic atherosclerosis
h/o orthostasis on Terazosin
h/o TIA 2016
Iron deficiency anemia
Echo 08/06/2020: EF 64%. Mild LVH. Normal RV. Mild MAC with mild MR. No AI or . Trace TR. PAP 29 mmHg
Echo 01/19/2021: EF 55-60%, stage I diastolic dysfunction, trace MR, trace TR, PAP 21 mmHg
Echo 10/29/2024: EF 40-45%, Stage I diastolic dysfunction, mild inferolateral and inferior hypokinesis
Echo 11/14/2024: EF 50 to 55%. No significant valvular disease. No pericardial effusion.
Echo 05/07/2025: Study pending
Cardiac cath 11/01/2024: Left main 60% distal. LAD 40% ostial. Circumflex: Hazy 80% ostial, stents in OM1 with moderate diffuse ISR, smaller daughter branch of OM1 with 70% stenosis. RCA 60 to 70% ostial stenosis
Cardiac cath 11/14/2024: Successful complex percutaneous coronary artery intervention with one 3.0 x 22 mm [employer] [place] drug-eluting stent from distal left main into left circumflex artery/OM1 and a second 2.75 x 18 mm [employer]tronic [place] drug-eluting
stent from distal left main into proximal LAD
Cardiac cath 05/08/25: Accelerated restenosis (ISR) with distal LM extending into ostial LAD (70-80%) and ostial LCx (95%), 60-70% stable ostial RCA stenosis.
Plan:
-Presenting with chest discomfort found to have rising troponin which peaked at 24.9 consistent with NSTEMI, trop downtrending. CP free. s/p 48hrs of IV heparin.
-s/p cath this afternoon with ongoing heart team discussion with IC partners and CT surgery to discuss next best option for patient given accelerated extensive ISR of recently placed stents via complex bifurcational IVUS guided PCI. Percutaneously
may have better role for possible drug coated balloons vs. laser rather than adding another layer of stents vs. CABG vs. hybrid approach and consideration for MIDCAB if feasible. Explained all this in extensively detail to patient and sonDangelo who
is sonar watchstander.
-Continue Aspirin/Plavix, high intensity statin, beta-pasha
-Echo 05/07/2025 with mildly reduced LV systolic function. cont GDMT optimization given ischemic CM.
-Known CKD and creatinine at the time of presentation was 2.9 which appears to be close to her baseline. High risk of BERYL. Nephrology following.
-proBNP was 8100 on admission, most recent heart failure admission proBNP levels have been over 12,000. CXR suggests possible interstitial pulmonary edema. LVEDP elevated at 35-40mmHG, IV diuretics. Close monitoring of renal fxn, ins and outs,
daily upright weights.
-Outpatient dose of Toprol-XL 25 mg daily has been continued.
-Avoiding ZAY/ARB/ARNI, MRA, SGLT2 given CKD
Discussed with IC partners, CT surgery, sonDangelo and nursing.
Total time 52 minutes (+25 modifier)
Patient came to the ER yesterday with chest pain and initial troponin was 1.65 and has now trended up to 23.2 prompting cardiology consultation for NSTEMI. Patient had a prolonged admission from 10/29/2024 until 11/16/2024 for NSTEMI and cardiac cath
showed MV CAD. Patient was initially seen in consultation by CT surgery and there is consideration for CABG, but this was ultimately deferred due to JESI on CKD and patient instead had high risk PCI with stenting of the distal left main into the
circumflex and distal left main into the proximal LAD on 11/14/2024. Patient was discharged home and then readmitted 2 weeks later with acute HF and CKD. Patient was then doing well and had last seen Dr. Danielson in the office on 01/31/2025. 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
for her and she started that job last week. In the meantime patient called the office with chest pain on 04/23/2025 and was advised to go to the ER for evaluation given her complex CAD history, she ended up not going to the ER because she was
afraid she would miss her first day of work. Instead she was taking NTG SL several times a day for chest pain. Chest pain is described as being present on a daily basis and comes and goes throughout the day, it is a deep aching feeling and feels
similar to her previous NE pain. She finally came to the ER last night because she ran out of her NTG SL tablets and the pharmacy would not refill her prescription. She is distressed because she only had 2 days at her new job before she had to
come to the ER and is now missing work. Despite this she is pain-free on heparin gtt and Nitropaste. Initial troponin is 1.65 and now up to 23.2.
Progress Note - Floor Coverer Apprentice
Subjective
Date of Service: May 08, 2025
Stable post cath after one transient episode of hypotension thought to be vagal in nature given soon after groin sheath pull. Off nitro. BP improved to 130s/80s.
Objective
Labs:
05/07/25 03:49
05/08/25 04:13
Labs
Hgb 9.6 g/dL (12.0-16.0) L 05/07/25 03:49
Hct 32.0 % (37.0-47.0) L 05/07/25 03:49
Plt Count 172 10^3/uL (130-400) 05/07/25 03:49
APTT 73.1 Sec (23.4-35.0) H 05/08/25 08:34
Sodium 135 mmol/L (135-145) 05/08/25 04:13
Potassium 4.4 mmol/L (3.5-5.1) 05/08/25 04:13
BUN 69 mg/dl (7-17) H 05/08/25 04:13
Creatinine 2.9 mg/dL (0.6-1.0) H 05/08/25 04:13
Glucose 147 mg/dl (70-99) H 05/08/25 04:13
Troponins
05/06/25 05/06/25 05/06/25
15:20 15:53 16:21
Troponin I Cancelled Cancelled 1.650 H*
05/06/25 05/06/25 05/07/25
21:46 23:12 03:49
Troponin I 14.700 H* D Cancelled 23.200 H* D
05/07/25 05/07/25 05/07/25
10:03 17:21 21:00
Troponin I 23.700 H* 24.900 H* Cancelled
05/07/25
23:51
Troponin I 18.400 H* D
Vital Signs and I&O:
Vital Signs
Temp Pulse Resp BP Pulse Ox
97.7 F 61 19 124/79 99
05/08/25 11:20 05/08/25 12:58 05/08/25 12:58 05/08/25 12:58 05/08/25 12:58
Vital Signs
Temp Pulse Resp BP Pulse Ox
97.7 F 61 19 124/79 99
05/08/25 11:20 05/08/25 12:58 05/08/25 12:58 05/08/25 12:58 05/08/25 12:58
Intake & Output
05/06/25 05/07/25 05/08/25 05/09/25
06:59 06:59 06:59 06:59
Intake Total 480 / 480 432 / 432
Balance 480 / 480 432 / 432
Physical Exam
Physical Exam
Gen: NAD, AAOx3
HEENT: NC/AT, sclera anicteric
Neck: No JVD
CV: RRR, NL s1/s2, no M/R/G
Lungs: crackles at bases b/l on RA
Abd: S/ND
Ext: No LE edema
Skin: Warm, dry
Neuro: Non-focal
Left groin soft, dresing c/d/i, no hematoma or bruit.
--- NOTE | 2025-05-08 17:15 | CONSULT.CT ---
Consultation
-
Requesting Provider: Sam HURLEY
Performing Provider: Elida Cline MD
Reason for Consultation: CABG eval
Patient History
Physicians
Family Physician: Brandt
Outpatient Hospice Superintendent: VICKY Danielson
Inpatient Hospice Superintendent: VICKY Danielson
History of Present Illness
75-year-old female with past medical history significant for JESI on CKD, CAD, and PAD presented to [facility] ED on on 05/06 with complaints of chest pain. She was found to have an elevated troponin and was started on heparin and nitroglycerin drip.
Back in October patient was seen by CT surgery for CABG evaluation, however it was ultimately deferred to a high risk PCI due to her JESI on CKD.
Patient began to have chest pain on 04/23/2025 but patient did not come to the ER due to fear of missing her first day back to work. She finally came to the emergency room after she ran out of her sublingual nitroglycerin tablets. [facility] today
revealed in-stent stenosis and CT surgery was asked to re-evaluate.
Past Medical History
Past Medical History: Other
NSTEMI,
JESI on CKD 4
CAD
HTN
HLD
DM2
h/o Henoch-Sanna�nlein purpura
Glaucoma
Celiac compression syndrome s/p DITCH REPAIRER for compression and dissected 2016
h/o angioedema on MARCELL inhibitors
Aortic atherosclerosis
h/o orthostasis on Terazosin
h/o TIA 2016
Iron deficiency anemia
Past Surgical History
Past Surgical History: Orthopedic, PCI/Stent, Tonsilectomy and Other
h/o gastric bypass 2010
s/p 2.5 mm Xience OM1 PCI 01/20/21
s/p Xience prox and overlapping previously placed distal OM-1 05/17/2019
s/p 2.5 mm Xience OM1 PCI 02/12/2019 PAD
s/p R common femoral endarterectomy w/ patch angioplasty and covered R iliac stent 01/2024
s/p right SFA angioplasty and stent 04/2020 h/o COVID 19 w/ residual parenchymal scarring
DITCH REPAIRER for compression and dissected 2016
Family History
Family Medical History: CAD
Social History
Alcohol: Occasional
Drug: None
Tobacco: Non-Smoker
Personal:
Living: With Spouse
Employment: Employed
Allergies
Allergy/AdvReac Type Severity Reaction Status Date / Time
MARCELL Inhibitors (Marcell Allergy Swelling/AN Verified 12/20/24 23:31
Inhibitors) GIOEDEMA
chamomile flower Allergy Rash Verified 12/20/24 23:31
Sulfa (Sulfonamide Allergy Rash Verified 12/20/24 23:31
Antibiotics)
sulfite Allergy VASCULITIS Verified 12/20/24 23:31
artificial sweetners Allergy Unknown Uncoded 12/20/24 23:31
Home Medications
�Medication �Instructions �Recorded �Confirmed �Type
clopidogrel 75 mg tablet (Plavix) 75 mg PO DAILY Blood Clot 06/19/24 05/06/25 History
Prevention/Tx
atorvastatin 80 mg tablet 80 mg PO QPM High Cholesterol 10/29/24 05/06/25 History
cholecalciferol (vitamin D3) 50 50 mcg PO DAILY Supplement 10/29/24 05/06/25 History
mcg (2,000 unit) tablet (Vitamin
D3)
coQ10 (ubiquinol) 200 mg capsule 400 mg PO DAILY High Cholesterol 10/29/24 05/06/25 History
pantoprazole 40 mg tablet,delayed 40 mg PO DAILY Gastrointestinal 10/29/24 05/06/25 History
release (Protonix) Issue
pregabalin 150 mg capsule 300 mg PO HS diabetic neuropathy 10/29/24 05/06/25 History
sodium bicarbonate 650 mg tablet 650 mg PO BID Electrolyte Repletion 10/29/24 05/06/25 History
tramadol 50 mg tablet 50 mg PO Q6HPRN PRN moderate pains 10/29/24 05/06/25 History
insulin aspart U-100 100 unit/mL 5 unit (0.05 mL) SC AC Diabetes #5 11/16/24 05/06/25 Rx
(3 mL) subcutaneous pen (Novolog ea
FlexPen U-100 Insulin aspart)
aspirin 81 mg chewable tablet 81 mg PO DAILY Blood Clot 05/06/25 05/06/25 History
Prevention/Tx
calcitriol 0.25 mcg capsule 0.25 mcg PO Q48H Supplement 05/06/25 05/06/25 History
ezetimibe 10 mg tablet 10 mg PO DAILY High Cholesterol 05/06/25 05/06/25 History
furosemide 40 mg tablet (Lasix) 40 mg PO DAILY Fluid 05/06/25 05/06/25 History
Retention/Swelling
insulin glargine 100 unit/mL (3 24 unit SC BID Diabetes 05/06/25 05/06/25 History
mL) subcutaneous pen (Basaglar
KwikPen U-100 Insulin)
ipratropium 0.5 mg-albuterol 3 mg 3 ml inhalation R Q6HPRN PRN sob 05/06/25 05/06/25 History
(2.5 mg base)/3 mL nebulization
soln
metoprolol succinate 25 mg 25 mg PO DAILY Heart 05/06/25 05/06/25 History
tablet,extended release 24 hr Disease/Condition
Review of Systems
-
History Source: Patient
General: Reports No Symptoms
HEENT: Reports No Symptoms
Respiratory: Reports SOB
Cardiac: Reports Chest Pain and CAD
Abdomen/GI: Reports No Symptoms
: Reports No Symptoms
Musculoskeletal: Reports No Symptoms
Skin: Reports No Symptoms
Neurological: Reports No Symptoms
Vascular: Reports No Symptoms
Physical Exam
Vital Signs
Temp 97.7 F 05/08/25 11:20
Temp route: Oral 05/08/25 11:20
Pulse 57 05/08/25 16:40
Rhythm: Sinus bradycardia 05/08/25 12:58
With- Bundle Branch Block Confi 05/08/25 08:15
Resp Rate 9 05/08/25 16:40
Blood pressure 115/57 05/08/25 16:40
Blood pressure extremity used: Right upper arm 05/08/25 12:58
Position: Lying 05/08/25 12:58
MAP (cuff-Mary Monitor) 72 05/08/25 16:40
SaO2 95 05/08/25 14:05
Oxygen Mode of Delivery Room air 05/08/25 12:58
Acceptable pain level during hospitalization? 0 05/06/25 15:13
Can the patient verbally communicate their pain? Yes 05/08/25 08:15
Pain scale ratin 05/08/25 02:38
Arterial Systolic Pressure 125 05/08/25 16:40
Arterial Diastolic Pressure 49 05/08/25 16:40
MAP (Y-Ixgg-Jaxgiao Monitor) 75 05/08/25 16:40
Actual Weight 63.7 kg 05/08/25 06:00
Body Mass Index (BMI) 27.4 05/08/25 06:00
Labs
05/07/25 03:49
05/08/25 04:13
APTT 73.1 Sec (23.4-35.0) H 05/08/25 08:34
Troponin I 18.400 ng/ml H* D 05/07/25 23:51
Dic-O-Lnbhxuhutzx Pept 8100 pg/ml 05/06/25 16:21
Exam
General: Well Developed and Well Nourished
HEENT: Normocephalic
Respiratory: Clear
Cardiac: S1/S2 and Regular Rhythm
GI: Soft and Non Tender
Rectal: Deferred by Provider
Skin: Warm and Dry
Neuro: AO x 3 and No Motor Deficits
Lymph: No Lymphadenopathy
Psych: Calm
Assessment / Plan
-
74-year-old female with PHM as listed above who was found to have a NSTEMI and in stent stenosis requiring CTS consultation.
#CAD
#NSTEMI
- Patient's case will be discussed with attending physician. Further details regarding surgical timing intervention will be determined after attending physicians full evaluation.
- Possible MIDCAB
- preop work up will be started after attending's evaluation
-trend BMP
[2025-05-08 17:19] LABS: Glucose - Point of Care 145 mg/dl (70-99)
[2025-05-08] MEDS: NITRO-BID TOPICAL (18:14)
--- NOTE | 2025-05-08 19:15 | PTCARENOTE ---
Pt received awake alert and oriented. HOB elevated 30 degrees per order so pt able to eat dinner. NTG gtt infusing at 20mcg and pt's SBP 140s. Assessment as charted.
--- NOTE | 2025-05-08 20:45 | PTCARENOTE ---
BP down to 70s/40s. Pt asymptomatic. BP checked on other arm with same results. NTG off. HOB flat. SBP up to 100 soon after NTG off.
--- NOTE | 2025-05-08 22:30 | PTCARENOTE ---
BP up to 160s-180s systolic. Pt c/o bilat arm 'aching'. Denies dyspnea, chest pain, shoulder or jaw pain. Arm pain started after NTG gtt off. Discussed with SHERIFF SERGEANT-NTG paste placed on pt. Tylenol given. Pt assisted OOB to void. Systolic down to 120s
at this time and pt sleeping. Will continue to monitor closely.
[2025-05-08 22:40] LABS: Glucose - Point of Care 330 mg/dl (70-99)
[2025-05-08] MEDS: LYRICA 150 MG PO (23:03)
--- NOTE | 2025-05-08 23:16 | PTCARENOTE ---
BP down to 101/44. Accucheck 330-pt ate dinner late due to cardiac cath. Discussed with TERRI. NTG paste removed at this time.
[2025-05-08] MEDS: NOVOLOG FLEXPEN 3 UNITS SC (23:26)
[2025-05-09] VITALS (17 sets, daily range): BP systolic 104–151; BP diastolic 37–70; BMI 27.3
[2025-05-09] MEDS: NITRO-BID TOPICAL (00:56)
[2025-05-09 05:05] LABS: Hematocrit 29.7 % (37.0-47.0); Hemoglobin 9.3 g/dL (12.0-16.0); Mean Corp Hgb Conc. 31.3 g/dL (33.0-37.0); Mean Corpuscular Volume 79.6 fL (81.0-99.0); Platelet Count 171 10^3/uL (130-400); Red Cell Dist. Width 19.6 % (11.5-14.5)
[2025-05-09 05:10] LABS: Blood Urea Nitrogen 76 mg/dl (7-17); Calcium 8.2 mg/dl (8.4-10.2); Carbon Dioxide 31 mmol/L (22-30); Chloride 101 mmol/L (98-107); Estimated Creatinine Clearance 14 ml/min; Glucose 145 mg/dl (70-99); HDL Cholesterol 31 mg/dl; LDL Cholesterol, Calculated 44 mg/dl; Potassium 4.4 mmol/L (3.5-5.1); Sodium 136 mmol/L (135-145); Very Low Density Lipoprotein 21 mg/dl (0-30); eGFR 15.72
[2025-05-09] MEDS: NITRO-BID 0.5 INCH TOPICAL ×3 (05:29→23:44)
[2025-05-09] MEDS: PLAVIX PO (08:05)
[2025-05-09] MEDS: LIPITOR 80 MG PO (08:12)
[2025-05-09] MEDS: PROTONIX 40 MG PO (08:12)
[2025-05-09] MEDS: TOPROL XL 25 MG PO (08:13)
[2025-05-09] MEDS: SODIUM BICARBONATE 650 MG PO ×2 (08:14→20:35)
[2025-05-09] MEDS: LOW STRENGTH ASPIRIN 81 MG PO (08:14)
[2025-05-09] MEDS: ZETIA 10 MG PO (08:15)
--- NOTE | 2025-05-09 08:19 | W.PN.HOSP.TC ---
Addendum entered and electronically signed by Kellee Rios MD 05/09/25 12:22:
Chronic pulmonary edema due to chronic HFpEF only
Addendum entered and electronically signed by Kellee Rios MD 05/09/25 12:21:
Attending�addendum:
I saw and evaluated the patient. I reviewed the resident�s note and agree with findings and plan as documented in the resident�s note.��patient seen and examined at bedside, status post cardiac cath yesterday.
Plan for CABG on Tuesday
Physical�exam:
GENERAL : Patient is awake, alert, oriented x3
HEENT: Nonicteric sclerae, PERRLA, EOMI. Oropharynx clear. Moist mucous membranes. Conjunctivae appear well perfused.
CHEST: Chest wall is nontender.
HEART: Regular rate and rhythm without murmurs.
LUNGS: Clear to auscultation bilaterally.
ABDOMEN: Soft, positive bowel sounds, nontender, no organomegaly.
RECTAL: Deferred.
MUSCLES/EXTREMITIES: No abnormal range of motion, no swelling.SKIN: No rash, no excessive bruising, petechiae, or purpura.
NEUROLOGIC: Cranial nerves II-XII intact without motor/sensory deficit.
�
Assessment/plan:
Non-STEMI.
Appreciate cardiology/nephrology input.
status post cardiac cath 05/08
Plan for CABG on Tuesday
Chronic diastolic CHF.
Lasix on hold in setting of JESI
Acute kidney injury on CKD 4.
Appreciate nephrology input
CODE STATUS: Full code
DVT prophylaxis: Heparin
Diet: Diabetic
Disposition: CABG on Tuesday
�
Total time spent on today�s encounter was 60 minutes which included time spent in counseling the patient/family regarding diagnosis and treatment plan as listed above, goals of care, and symptom management. Case was discussed with nursing staff,
specialists, and care coordinators/case management. All labs and imaging personally reviewed by me. Remainder the time spent in detailed review of previous records, lab data, imaging, and other medical provider documentation.
Original Note:
Today's Communication/Plan
-
.
Assessment / Plan
Assessment / Plan
Steph Luong is a 75 y/o F w/ PMHX CAD (s/p multiple PCI/stent/MATT with most recent being 11/14/24), GERD, HTN, HLD, IDDM, CKD Stage 4, celiac aa. dissection, chronic anemia, and ILD who is presenting with 1 week of substernal, daily chest pain
episodes that resolve with SL NTG with marked elevation and uptrend of cardiac biomarkers and EKG showing ischemic changes in the lateral leads. Patient was admitted to the IMU and started on heparin drip, NTG paste, and made NPO for invasive
coronary angiography.
1. NSTEMI
- Substernal anginal symptoms x 1 week alleviated by NTG;
- Troponin (ED): 1.65 --> 14.7 --> 23.2 --> 18; troponin trended to peak
- ECG showing anterolateral ST changes
- Continue Heparin gtt, follow PTT
- Continue ASA/Plavix/Statin/Zetia
- P2y12 testing shows adequate antiplatelet response to Plavix
- ECHO (05/08): EF 40-45%, inferior and inferolateral hypokinesis
- L Heart Cath (05/08): Severe rapid/accelerated in-stent restenosis of distal LM extending into ostial LAD and LCX after recently placed stents on November 14, 2024. Severely elevated LVEDP in setting of severe hypertension.
- CT Surgery recommendations appreciated
- Hold Plavix, potential surgical intervention after 5 days
2. Chronic HFpEF
- CXR suggestive of mild interstitial pulmonary edema
- BNP 8100 (57029 at last admission)
- Euvolemia on exam
- Daily weights/I/Os
- ECHO: EF 40-45%
3. Acute Kidney Injury or CKD 4
- Creatinine on admission 2.9 (baseline 2.3-2.5); still 2.9 this AM
- Nephrology reccs appreciated in setting of BERYL
- Continue Bicarb supplement
- Follow BMP
- IVF hydration limited in setting of CHF
4. History of GERD
- Continue Pantoprazole
- Alternative considered, but adequate antiplatelet response to Plavix
5. HTN
- BPs are at goal; continue to monitor
6. HLD
- Statin restarted
7. Transaminitis
- Mild AST elevation; improved after statin held
- Statin restarted today
- Repeat CMP in AM
- Potential from decreased perfusion in setting of LV dysfcn 2/2 NSTEMI? Echo pending.
8. IDDM
- Continue Lantus and corrective
- Hypoglycemia this morning, but diet restarted since procedure deferred
9. Chronic Anemia
- Daily CBC
10. Interstitial Lung Disease
- Stable
11. Mild asymptomatic Hyponatremia
- Repeat BMP in AM
Code: FULL
Diet: Cholesterol Lowering
DVT: Hep
Anticipated Discharge: > 48 hours
Subjective/Interval History
-
Date of Service: May 09, 2025
L Heart Cath yesterday showing in-stent restenosis of previous stent from 10/2024.
Patient with no acute complaints this morning.
In the process of discussing options with Dr. Vargas and Dr. Cline.
Family to come in at some point today to join in the discussions.
Objective Data
-
Labs:
Laboratory Results
05/09/25
04:31
WBC 6.5
Hgb 9.3 L
Hct 29.7 L
Plt Count 171
Sodium 136
Potassium 4.4
Chloride 101
Carbon Dioxide 31 H
BUN 76 H
Creatinine 3.0 H
Glucose 145 H
Calcium 8.2 L
Vital Signs:
Vital Signs
Temp Pulse Resp BP Pulse Ox
98 F 60 20 114/44 96
05/09/25 06:35 05/09/25 08:13 05/09/25 06:35 05/09/25 08:13 05/09/25 06:35
I&O
05/08/25 05/09/25 05/10/25
06:59 06:59 06:59
Intake Total 480 / 480 732 / 732
Output Total 500 / 500
Balance 480 / 480 232 / 232
Review of Systems
-
History Source: Patient
All other systems: Reviewed and negative
Physical Exam
-
General: No Apparent Distress and Comfortable
HEENT: Normocephalic, Atraumatic and Moist Mucous Membranes
Respiratory: Crackles and Non Labored Respirations
Cardiac: Regular Rhythm and S1/S2
Musculoskeletal: No Clubbing, No Cyanosis and No Edema
Skin: Warm
Neuro: Awake
Psych: Calm
Data Reviewed
-
Medical Tests (Nuc Med, Echo etc): Report Reviewed by me
Labs: Labs Reviewed by me and Discussed with Patient
[2025-05-09 08:34] LABS: Glucose - Point of Care 154 mg/dl (70-99)
--- NOTE | 2025-05-09 08:56 | W.PN.UPDATE ---
Update Note
Progress Note Update
I was asked to review Mrs. Luong' case. She is 70 send previous stenting to the circumflex and was recently in the hospital in October 2024 with in-stent restenosis. That time she was felt to be too high risk for surgery given pulmonary edema and
poor pulmonary status with significant peripheral vascular disease. She at that point also did not want surgery. She also underwent complex left main stenting to the circumflex into the LAD. She has subsequently developed NSTEMI and was found on
most recent heart cath to have significant in-stent restenosis and a very short period of time. Speaking to her, she tells me that she has been taking all of her medications including her aspirin and Plavix daily. I reviewed her functional status
and she is independent lives at home with her on a 3 story townhouse does all of her daily chores as well as grocery shopping and does not use a walker or any sort of assisted walking device. She has a son who is a junior brand manager and a good
support system. Given her in-stent restenosis in such a short time, I do believe she is in a difficult situation and that surgery would likely be her best option to prevent repeated hospital admissions and cardiovascular events. I will plan to
bill mo[facility] back around discussed with her family and come to a shared consensus. I will also plan to repeat her CT scan of the chest as on her October admission she was in significant pulmonary edema and the DLCO and her pulmonary function test may be
underestimated. Will repeat pulmonary function test as well. At this particular time, we discussed both hybrid options as well as full surgical options and she seems amenable. Given her Plavix/DAPT use, we will allow approximately 5 days of
washout, we will plan for a tag with platelet mapping test Tuesday morning and possibly surgery later in the day with me.
Thank you for involving me in the care of this patient. Please feel free to contact me with any questions or concerns.
Edgardo Cline MD, MS
Cardiothoracic Surgeon
[facility]
This dictation was created using the [employer] dictation system. Please excuse any grammatical, typographical, or 'sound alike' errors.
[2025-05-09] MEDS: NOVOLOG FLEXPEN-LOW RESISTANCE 1 UNITS SC ×2 (08:59→11:50)
[2025-05-09] MEDS: LANTUS 0.12 UNITS SC ×2 (08:59→20:36)
--- NOTE | 2025-05-09 10:18 | PTCARENOTE ---
Pt has old injury on L heel, bilat heel foams applied by ACACIA Causey. Bilat lower legs elevated off bed on pillows.
--- NOTE | 2025-05-09 11:14 | W.PN.NEPH.PH ---
Today's Communication / Plan
-
AM labs
Assessment/Plan
-
IMP:
NSTEMI
CHr CHFpEF
chronic ILD/fibrosis
JESI with CKD stage 4 (baseline Cr� 2.5)-follows Dr Cast
DM2
CAD hx of MS, hx of stents last in October 2024
HTN
DM
GERD
h/o ACEI angioedema
h/o Henoch-Schonlein purpura
Gastric bypass 2010
ALISHA, mild, with nocturnal hypoxemia
PAD, SFA stent Apr 2020
Plan:
A/w NSTEMI
mild Jesi with CKD4 -cr mildly higher than baseline
Status post left heart cath 05/08 severe rapid/accelerated in-stent restenosis of distal LM extending into ostial LAD and LCX after recently placed stents on November 14, 2024. Severely elevated LVEDP in setting of severe hypertension.
Creatinine 3 postcatheterization 24-hour status post bicarbonate prophylaxis
follow labs and wts
d/w pt in detail as well as her son who is at bedside who is a ice rink attendant.
CT surgery evaluating for likely CABG with risks and benefits discussed from a renal standpoint she is aware that potentially will need dialysis postoperatively and is not opposed to if needed at least per our preliminary discussion
Discussed with the CT surgery about placing a trialysis catheter as this would be fine from my standpoint though either way we will see how she responds postoperative and determine dialysis at that point

Critical care time 31 minutes patient has high risk
-
-
Date of Service: May 09, 2025
CC / HPI / ROS
-
Chief Complaint:
Chest pain shortness of breath
History of Present Illness:
Mild acute on chronic kidney disease in setting of CAD baseline creatinine 2 point creatinine peaked at 2.9 minimal change in GFR with increased creatinine
Review of Systems:
Currently no chest pain or shortness of breath
Labs
-
Labs:
WBC 6.5 10^3/uL (4.8-10.8) 05/09/25 04:31
RBC 3.73 10^6/uL (4.20-5.40) L 05/09/25 04:31
Hgb 9.3 g/dL (12.0-16.0) L 05/09/25 04:31
Hct 29.7 % (37.0-47.0) L 05/09/25 04:31
Plt Count 171 10^3/uL (130-400) 05/09/25 04:31
Sodium 136 mmol/L (135-145) 05/09/25 04:31
Potassium 4.4 mmol/L (3.5-5.1) 05/09/25 04:31
Chloride 101 mmol/L (98-107) 05/09/25 04:31
Carbon Dioxide 31 mmol/L (22-30) H 05/09/25 04:31
BUN 76 mg/dl (7-17) H 05/09/25 04:31
Creatinine 3.0 mg/dL (0.6-1.0) H 05/09/25 04:31
eGFR 15.72 05/09/25 04:31
Glucose 145 mg/dl (70-99) H 05/09/25 04:31
Calcium 8.2 mg/dl (8.4-10.2) L 05/09/25 04:31
Ivw-N-Grtwfesehkd Pept 8100 pg/ml 05/06/25 16:21
Albumin 3.6 g/dl (3.5-5.0) 05/07/25 03:49
Physical Exam
-
Vital Signs:
Vital Signs
Temp Pulse Resp BP Pulse Ox
98.1 F 57 20 114/44 96
05/09/25 10:52 05/09/25 10:00 05/09/25 10:52 05/09/25 08:13 05/09/25 10:52
Cardiovascular:: Regular rate and rhythm
Respiratory:: Bilateral: Coarse, Bilateral: Rales and Bilateral: Rhonchi
Lung Excursion:: Normal
Abdomen:: Nontender and Soft
Bowel Sounds:: Normal
Extremity Edema:: None: Bilateral:
Cortez Catheter: No
--- NOTE | 2025-05-09 11:34 | PN.CDI ---
CDI
- -
CDI:
Physician Documentation Request
Admit Date: 05/06/25 18:32
Dear Doctor Oli,
Clinical Indicators:
Patient admitted with NSTEMI.
05/08 PN, 'Chronic HFpEF - CXR suggestive of mild interstitial pulmonary edema BNP 8100 (81732 at last admission) - Euvolemia on exam.'
05/08 Cath report, LVEDP:40 'Severely elevated LVEDP in setting of severe hypertension.'
Treatment: Nitro gtt 10-30 mcg/min (ordered to titrate to keep SBP <160)
BP on admission:
05/06/25
15:13
Blood pressure 194/96
Please clarify the acuity and etiology of the pulmonary edema:
Acute pulmonary edema due to hypertensive emergency
Acute pulmonary edema due to acute on chronic HFpEF
Chronic pulmonary edema due to chronic HFpEF only
Other, please specify
Use of terms such as suspected, likely, concern for, or probable (associated with a specific diagnosis that is being evaluated, monitored, or treated as if it exists) are acceptable and can be coded in the inpatient setting, when documented at the
time of discharge.
Thank you,
ISABEL Isabel RN
CDI Specialist
available via tiger text
Please use your independent medical judgment in providing your response.
[2025-05-09 11:49] LABS: Glucose - Point of Care 162 mg/dl (70-99)
--- NOTE | 2025-05-09 11:58 | W.PN.CARDCBS ---
Today's Communication / Plan
-
Plan:
-Presenting with chest discomfort found to have rising troponin which peaked at 24.9 consistent with NSTEMI, trop downtrending. CP free. s/p 48hrs of IV heparin. Holding off on further heparin for now.
-s/p cath 05/08/25: Continue ongoing discussions with CT surgery team in regards to best approach discussing traditional CABG versus a possible hybrid approach with MIDCAB. Given prior concern for possible interstitial lung disease versus pulmonary
edema, the plan is to repeat chest CT and possibly PFTs. She does follow with Dr Sotelo so could consider having pulmonary AVM
-Continue Aspirin high intensity statin, beta-pasha. Holding on Plavix for now until surgical decision is clear.
-Echo 05/07/2025 with mildly reduced LV systolic function. cont GDMT optimization given ischemic CM.
-Known CKD and creatinine at the time of presentation was 2.9 which appears to be close to her baseline. High risk of BERYL. Nephrology following.
-proBNP was 8100 on admission, most recent heart failure admission proBNP levels have been over 12,000. CXR suggests possible interstitial pulmonary edema. LVEDP elevated at 35-40mmHG, IV diuretics. Close monitoring of renal fxn, ins and outs,
daily upright weights.
-Outpatient dose of Toprol-XL 25 mg daily has been continued.
-Avoiding ZAY/ARB/ARNI, MRA, SGLT2 given CKD
Discussed with IC partners, CT surgery, son, Dangelo and nursing.
Total time 36 minutes
Impression / Plan
-
PCP: Dr. Carlton
Premium Representative: Dr. VICKY Danielson
Impression:
Admitted with chest pain and NSTEMI 05/06/2025
NSTEMI, troponin up to 23 and trending
Admission for acute HF and elevated troponin 11/26/24 until 11/28/2024
Admission for NSTEMI, MV CAD with distal LM into circumflex and distal LM into proximal LAD PCI, acute HF and JESI 10/29/2024 until 11/16/2024
Abnormal LFTs, elevated AST
JESI on CKD 4
CAD
s/p 2.5 mm Xience OM1 PCI 02/12/2019
s/p Xience prox and overlapping previously placed distal OM-1 05/17/2019
s/p 2.5 mm Xience OM1 PCI 01/20/21
NSTEMI, s/p complex MATT distal LM into LCx/OM1 3.0 x 22 mm Medtronics Hernan drug-eluting stent and from distal LM into proximal LAD 2.75 x 18 mm [employer] [place] drug-eluting stent 11/14/2024
PAD
s/p R common femoral endarterectomy w/ patch angioplasty and covered R iliac stent 01/2024
s/p right SFA angioplasty and stent 04/2020
h/o COVID 19 w/ residual parenchymal scarring
HTN
HLD
DM2
h/o Henoch-Sanna�nlein purpura
Glaucoma
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
h/o gastric bypass 2010
h/o angioedema on ZAY inhibitors
Aortic atherosclerosis
h/o orthostasis on Terazosin
h/o TIA 2016
Iron deficiency anemia
Echo 08/06/2020: EF 64%. Mild LVH. Normal RV. Mild MAC with mild MR. No AI or . Trace TR. PAP 29 mmHg
Echo 01/19/2021: EF 55-60%, stage I diastolic dysfunction, trace MR, trace TR, PAP 21 mmHg
Echo 10/29/2024: EF 40-45%, Stage I diastolic dysfunction, mild inferolateral and inferior hypokinesis
Echo 11/14/2024: EF 50 to 55%. No significant valvular disease. No pericardial effusion.
Echo 05/07/2025: Study pending
Cardiac cath 11/01/2024: Left main 60% distal. LAD 40% ostial. Circumflex: Hazy 80% ostial, stents in OM1 with moderate diffuse ISR, smaller daughter branch of OM1 with 70% stenosis. RCA 60 to 70% ostial stenosis
Cardiac cath 11/14/2024: Successful complex percutaneous coronary artery intervention with one 3.0 x 22 mm Medtronics Hernan drug-eluting stent from distal left main into left circumflex artery/OM1 and a second 2.75 x 18 mm Medtronic Hernan drug-eluting
stent from distal left main into proximal LAD
Cardiac cath 05/08/25: Accelerated restenosis (ISR) with distal LM extending into ostial LAD (70-80%) and ostial LCx (95%), 60-70% stable ostial RCA stenosis.
Plan:
-Presenting with chest discomfort found to have rising troponin which peaked at 24.9 consistent with NSTEMI, trop downtrending. CP free. s/p 48hrs of IV heparin. Holding off on further heparin for now.
-s/p cath 05/08/25: Continue ongoing discussions with CT surgery team in regards to best approach discussing traditional CABG versus a possible hybrid approach with MIDCAB. Given prior concern for possible interstitial lung disease versus pulmonary
edema, the plan is to repeat chest CT and possibly PFTs. She does follow with Dr Sotelo so could consider having pulmonary AVM
-Continue Aspirin high intensity statin, beta-pasha. Holding on Plavix for now until surgical decision is clear.
-Echo 05/07/2025 with mildly reduced LV systolic function. cont GDMT optimization given ischemic CM.
-Known CKD and creatinine at the time of presentation was 2.9 which appears to be close to her baseline. High risk of BERYL. Nephrology following.
-proBNP was 8100 on admission, most recent heart failure admission proBNP levels have been over 12,000. CXR suggests possible interstitial pulmonary edema. LVEDP elevated at 35-40mmHG, IV diuretics. Close monitoring of renal fxn, ins and outs,
daily upright weights.
-Outpatient dose of Toprol-XL 25 mg daily has been continued.
-Avoiding ZAY/ARB/ARNI, MRA, SGLT2 given CKD
Discussed with IC partners, CT surgery, son, Dangelo and nursing.
Total time 36 minutes
Patient came to the ER yesterday with chest pain and initial troponin was 1.65 and has now trended up to 23.2 prompting cardiology consultation for NSTEMI. Patient had a prolonged admission from 10/29/2024 until 11/16/2024 for NSTEMI and cardiac cath
showed MV CAD. Patient was initially seen in consultation by CT surgery and there is consideration for CABG, but this was ultimately deferred due to JESI on CKD and patient instead had high risk PCI with stenting of the distal left main into the
circumflex and distal left main into the proximal LAD on 11/14/2024. Patient was discharged home and then readmitted 2 weeks later with acute HF and CKD. Patient was then doing well and had last seen Dr. Danielson in the office on 01/31/2025. Patient
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
for her and she started that job last week. In the meantime patient called the office with chest pain on 04/23/2025 and was advised to go to the ER for evaluation given her complex CAD history, she ended up not going to the ER because she was
afraid she would miss her first day of work. Instead she was taking NTG SL several times a day for chest pain. Chest pain is described as being present on a daily basis and comes and goes throughout the day, it is a deep aching feeling and feels
similar to her previous [place] pain. She finally came to the ER last night because she ran out of her NTG SL tablets and the pharmacy would not refill her prescription. She is distressed because she only had 2 days at her new job before she had to
come to the ER and is now missing work. Despite this she is pain-free on heparin gtt and Nitropaste. Initial troponin is 1.65 and now up to 23.2.
Progress Note - Premium Representative
Subjective
Date of Service: May 09, 2025
No issues overnight. No CP. She is anxious about ognoing discussions.
Objective
Labs:
05/09/25 04:31
05/09/25 04:31
Labs
Hgb 9.3 g/dL (12.0-16.0) L 05/09/25 04:31
Hct 29.7 % (37.0-47.0) L 05/09/25 04:31
Plt Count 171 10^3/uL (130-400) 05/09/25 04:31
APTT Cancelled 05/08/25 15:00
Sodium 136 mmol/L (135-145) 05/09/25 04:31
Potassium 4.4 mmol/L (3.5-5.1) 05/09/25 04:31
BUN 76 mg/dl (7-17) H 05/09/25 04:31
Creatinine 3.0 mg/dL (0.6-1.0) H 05/09/25 04:31
Glucose 145 mg/dl (70-99) H 05/09/25 04:31
Troponins
05/06/25 05/06/25 05/06/25
15:20 15:53 16:21
Troponin I Cancelled Cancelled 1.650 H*
05/06/25 05/06/25 05/07/25
21:46 23:12 03:49
Troponin I 14.700 H* D Cancelled 23.200 H* D
05/07/25 05/07/25 05/07/25
10:03 17:21 21:00
Troponin I 23.700 H* 24.900 H* Cancelled
05/07/25
23:51
Troponin I 18.400 H* D
Vital Signs and I&O:
Vital Signs
Temp Pulse Resp BP Pulse Ox
98.1 F 57 20 114/44 96
05/09/25 10:52 05/09/25 10:00 05/09/25 10:52 05/09/25 08:13 05/09/25 10:52
Vital Signs
Temp Pulse Resp BP Pulse Ox
98.1 F 57 20 114/44 96
05/09/25 10:52 05/09/25 10:00 05/09/25 10:52 05/09/25 08:13 05/09/25 10:52
Intake & Output
05/07/25 05/08/25 05/09/25 05/10/25
06:59 06:59 06:59 06:59
Intake Total 480 / 480 732 / 732
Output Total 500 / 500
Balance 480 / 480 232 / 232
Physical Exam
Physical Exam
Gen: NAD, AAOx3
HEENT: NC/AT, sclera anicteric
Neck: No JVD
CV: RRR, NL s1/s2, no M/R/G
Lungs: crackles at bases b/l on RA
Abd: S/ND
Ext: No LE edema
Skin: Warm, dry
Neuro: Non-focal
Left groin soft, dresing c/d/i, no hematoma or bruit.
--- NOTE | 2025-05-09 14:01 | W.PN.UPDATE ---
Update Note
Progress Note Update
STS risk assessment:
Procedure Type:�Isolated CABG
Perioperative Outcome Estimate %
Operative Mortality 11.2%
Morbidity & Mortality 37.3%
Stroke 4.19%
Renal Failure 52.4%
Reoperation 4.44%
Prolonged Ventilation 16.8%
Deep Sternal Wound Infection 0.938%
Long Hospital Stay (>14 days) 26.2%
Short Hospital Stay (<6 days)* 8.36%
Clinical Summary
Planned Surgery: Isolated CABG, Urgent, First cardiovascular surgery
Demographics: 75 year old, female, 64kg, 152cm, BMI: 27.7 kg/m�
Lab Values: Creatinine: 3 mg/dL, Hematocrit: 29.7%, WBC Count: 6.5 10�/�L, Platelet Count: 161920 cells/�L
PreOp Medications: Insulin diabetes control
Substance Abuse: Never smoker
Risk Factors / Comorbidities: Insulin-dependent Diabetes Mellitus, Hypertension
Pulmonary RF: Mild CLD
Vascular RF: Cerebrovascular Disease: TIA, Peripheral Artery Disease
Cardiac Status: Chronic heart failure, NYHA Class I, Ejection Fraction = 40%
Coronary Artery Disease: 3 vessels diseased, Left Main Stenosis >=50%, Non-ST Elevation AR, AR: 1 to 7 Days
Valve Disease: Mild MR, Trivial/Trace TR
Prev. Cardiac Interv: Previous PCI: Not during this episode of care
[2025-05-09] MEDS: NITROSTAT (SUBLINGUAL) 0.4 MG SL (15:30)
--- NOTE | 2025-05-09 15:41 | W.PN.UPDATE ---
Update Note
Progress Note Update
Called to see patient due to complaint of 7 out of 10 chest pain, which started while patient was just sitting in bed watching TV. EKG reviewed with lateral T wave depressions. She was given sublingual nitro x 1 as blood pressure stable with some
improvement. Will start patient back on Nitropaste and will also reinitiate IV heparin as she is off her Plavix in preparation for upcoming CABG early next week. Discussed with nursing and paving foreman
--- NOTE | 2025-05-09 15:54 | PTCARENOTE ---
Pt c/o chest pain, mid sternal, rated 7/10, EKG done, Nikkie Chua notified, BP 133/70. Med with NTG 1 SL with complete relief after about 15 min. BP rechecked 140/67, 113/53.
[2025-05-09 16:55] LABS: APTT 30.4 Sec (23.4-35.0)
[2025-05-09] MEDS: HEPARIN 25000 UNITS/250 ML IV (17:19)
[2025-05-09 17:40] LABS: Glucose - Point of Care 263 mg/dl (70-99)
[2025-05-09] MEDS: NOVOLOG FLEXPEN-LOW RESISTANCE 3 UNITS SC (17:57)
[2025-05-09 20:36] LABS: Glucose - Point of Care 193 mg/dl (70-99)
[2025-05-09 22:10] LABS: Glucose - Point of Care 182 mg/dl (70-99)
[2025-05-09] MEDS: LYRICA 150 MG PO (22:51)
[2025-05-09 23:56] LABS: APTT 74.7 Sec (23.4-35.0)
[2025-05-10] VITALS (31 sets, daily range): BP systolic 91–207; BP diastolic 43–123; BMI 27.3
--- NOTE | 2025-05-10 00:56 | PTCARENOTE ---
Received pt at change of shift resting in bed. SB on tele, HR 50's. pt denies any CP or SOB at this time. L groin site C/D/I, no bleeding or hematoma noted at this time. Heparin gtt infusing per protocol. PTT obtained and sent, result WNL. Updated
pt on plan of care. Fall risk precautions maintained, encouraged pt to call RN for assistance ambulating, pt calls appropriately, call duran within reach.
[2025-05-10] MEDS: TYLENOL 650 MG PO (03:52)
[2025-05-10] MEDS: NITRO-BID 0.5 INCH TOPICAL (05:38)
[2025-05-10 05:52] LABS: INR 1.12; PT 14.9 Sec (11.4-14.6)
[2025-05-10 05:54] LABS: APTT 94.6 Sec (23.4-35.0)
[2025-05-10 06:22] LABS: ALT (SGPT) 17 U/L (0-35); AST (SGOT) 36 U/L (14-36); Albumin 3.4 g/dl (3.5-5.0); Alkaline Phosphatase 84 U/L (38-126); Total Protein 5.9 g/dl (6.3-8.2)
[2025-05-10 06:47] LABS: Glucose - Point of Care 143 mg/dl (70-99)
[2025-05-10] MEDS: NOVOLOG FLEXPEN-LOW RESISTANCE SC ×2 (07:49→17:46)
[2025-05-10 07:54] LABS: Blood Urea Nitrogen 77 mg/dl (7-17); Calcium 8.3 mg/dl (8.4-10.2); Carbon Dioxide 27 mmol/L (22-30); Chloride 103 mmol/L (98-107); Estimated Creatinine Clearance 15 ml/min; Glucose 143 mg/dl (70-99); Potassium 4.5 mmol/L (3.5-5.1); Sodium 138 mmol/L (135-145); eGFR 17.84
[2025-05-10] MEDS: NITROSTAT (SUBLINGUAL) 0.4 MG SL (08:29)
[2025-05-10] MEDS: LANTUS 0.12 UNITS SC ×2 (08:36→20:56)
[2025-05-10] MEDS: PROTONIX 40 MG PO (08:37)
[2025-05-10] MEDS: LOW STRENGTH ASPIRIN 81 MG PO (08:37)
[2025-05-10] MEDS: LIPITOR 80 MG PO (08:37)
[2025-05-10] MEDS: SODIUM BICARBONATE 650 MG PO ×2 (08:37→20:56)
[2025-05-10] MEDS: ZETIA 10 MG PO (08:37)
--- NOTE | 2025-05-10 09:07 | W.PN.HOSP.TC ---
Addendum entered and electronically signed by Kellee Rios MD 05/10/25 12:13:
Attending�addendum:
I saw and evaluated the patient. I reviewed the resident�s note and agree with findings and plan as documented in the resident�s note.��patient seen and examined at bedside, patient had a chest pain again last night and today morning received
nitroglycerin.
Plan for CABG on Tuesday.
Physical�exam:
GENERAL : Patient is awake, alert, oriented x3
HEENT: Nonicteric sclerae, PERRLA, EOMI. Oropharynx clear. Moist mucous membranes. Conjunctivae appear well perfused.
CHEST: Chest wall is nontender.
HEART: Regular rate and rhythm without murmurs.
LUNGS: Clear to auscultation bilaterally.
ABDOMEN: Soft, positive bowel sounds, nontender, no organomegaly.
RECTAL: Deferred.
MUSCLES/EXTREMITIES: No abnormal range of motion, no swelling.SKIN: No rash, no excessive bruising, petechiae, or purpura.
NEUROLOGIC: Cranial nerves II-XII intact without motor/sensory deficit.
�
Assessment/plan:
Non-STEMI.
Appreciate cardiology/nephrology input.
status post cardiac cath 05/08
Plan for CABG on Tuesday
Continue with the chest pain, increased Nitropaste
Chronic diastolic CHF.
Lasix on hold in setting of JESI
Acute kidney injury on CKD 4.
Appreciate nephrology input
Creatinine stable
CODE STATUS: Full code
DVT prophylaxis: Heparin
Diet: Diabetic
Medication: Discussed with brother at bedside.
Disposition: CABG on Tuesday
�
Total time spent on today�s encounter was 60 minutes which included time spent in counseling the patient/family regarding diagnosis and treatment plan as listed above, goals of care, and symptom management. Case was discussed with nursing staff,
specialists, and care coordinators/case management. All labs and imaging personally reviewed by me. Remainder the time spent in detailed review of previous records, lab data, imaging, and other medical provider documentation
Original Note:
Today's Communication/Plan
-
.
Assessment / Plan
Assessment / Plan
Steph Luong is a 75 y/o F w/ PMHX CAD (s/p multiple PCI/stent/MATT with most recent being 11/14/24), GERD, HTN, HLD, IDDM, CKD Stage 4, celiac aa. dissection, chronic anemia, and ILD who is presenting with 1 week of substernal, daily chest pain
episodes that resolve with SL NTG with marked elevation and uptrend of cardiac biomarkers and EKG showing ischemic changes in the lateral leads. Patient was admitted to the IMU and started on heparin drip, NTG paste, and made NPO for invasive
coronary angiography.
1. NSTEMI
- Substernal anginal symptoms x 1 week alleviated by NTG;
- Troponin (ED): 1.65 --> 14.7 --> 23.2 --> 18; troponin trended to peak
- ECG showing anterolateral ST changes
- Initially on heparin gtt
- Heparin gtt restarted after episodes of CP (05/10), follow PTT
- Continue ASA/Plavix/Statin/Zetia
- P2y12 testing shows adequate antiplatelet response to Plavix
- ECHO (05/08): EF 40-45%, inferior and inferolateral hypokinesis
- L Heart Cath (05/08): Severe rapid/accelerated in-stent restenosis of distal LM extending into ostial LAD and LCX after recently placed stents on November 14, 2024. Severely elevated LVEDP in setting of severe hypertension.
- CT Surgery recommendations appreciated: MIDCAB vs traditional CABG on Tuesday
- Hold Plavix
2. Chronic HFpEF
- CXR suggestive of mild interstitial pulmonary edema
- BNP 8100 (79741 at last admission)
- Euvolemia on exam
- Daily weights/I/Os
- ECHO: EF 40-45%
3. Acute Kidney Injury or CKD 4
- Creatinine on admission 2.9 (baseline 2.3-2.5); improvement to 2.7 this AM
- Follow BMP
- IVF hydration limited in setting of CHF
4. History of GERD
- Continue Pantoprazole
- Alternative considered, but adequate antiplatelet response to Plavix
5. HTN
- BPs are at goal; continue to monitor
6. HLD
- Statin restarted
7. Transaminitis (resolved)
- Statin restarted; continue to monitor
- Potential from decreased perfusion in setting of LV dysfcn 2/2 NSTEMI?
8. IDDM
- Continue Lantus and corrective
- Hypoglycemia this morning, but diet restarted since procedure deferred
9. Chronic Anemia
- Daily CBC
10. Interstitial Lung Disease
- Stable
11. Mild asymptomatic Hyponatremia
- Repeat BMP in AM
Code: FULL
Diet: Cholesterol Lowering
DVT: Hep
Anticipated Discharge: > 48 hours
Subjective/Interval History
-
Date of Service: May 10, 2025
Patient seen and examined while resting in bed.
Endorses having an episode of chest pain last night, and had an additional episode this morning.
Both episodes were resolved with NTG, overnight with paste, morning with SL nitro.
Otherwise no acute complaints including SOB, lower extremity edema, palpitations.
Objective Data
-
Labs:
Laboratory Results
05/09/25 05/10/25 05/10/25
23:31 05:29 07:09
PT 14.9 H
INR 1.12
APTT 74.7 H 94.6 H
Sodium 138 Cancelled
Potassium 4.5 Cancelled
Chloride 103 Cancelled
Carbon Dioxide 27 Cancelled
BUN 77 H Cancelled
Creatinine 2.7 H Cancelled
Glucose 143 H Cancelled
Calcium 8.3 L Cancelled
Total Bilirubin 0.5
AST 36
ALT 17
Alkaline Phosphatase 84
Vital Signs:
Vital Signs
Temp Pulse Resp BP Pulse Ox
98.6 F 53 18 91/43 97
05/10/25 06:31 05/10/25 07:00 05/10/25 06:31 05/10/25 08:34 05/10/25 08:46
I&O
05/09/25 05/10/25 05/11/25
06:59 06:59 06:59
Intake Total 732 / 732 336 / 336
Output Total 500 / 500 200 / 200
Balance 232 / 232 136 / 136
Review of Systems
-
History Source: Patient
All other systems: Reviewed and negative
Physical Exam
-
General: Well Developed, Well Nourished, No Apparent Distress, Comfortable and Conversant
HEENT: Normocephalic, Atraumatic and Moist Mucous Membranes
Respiratory: Crackles and Non Labored Respirations
Cardiac: Regular Rhythm and S1/S2; Negative Murmur
GI: Soft, Nontender and Nondistended
Musculoskeletal: No Clubbing, No Cyanosis and No Edema
Skin: Warm
Neuro: Awake, Alert and Oriented
Psych: Calm
Data Reviewed
-
Labs: Labs Reviewed by me and Discussed with Patient
--- NOTE | 2025-05-10 10:41 | PTCARENOTE ---
Pt had an episode of chest pain this AM, she describes it as an aching pain in her left chest, she rated it as a 5/10. Bp initially 167/74. Pain resolved after receiving SL NTG x1 but BP dropped down to 91/43. Pt was asymptomatic of BP drop. Held
off on giving her metoprolol this AM, will plan to give after BP recovers. made aware.
--- NOTE | 2025-05-10 11:45 | PTCARENOTE ---
Assumed care. Patient received awake, alert and oriented sitting up in bed. She currently denies pain, CP, SOB. 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 Heparin gtt infusing RUE at 800units/hr. BBS with posterior crackles t/o on the right
and left base. BUL clear anteriorly. S1S2 regular with positive murmur. SR on CM with BBB. Left groin site with dressing CDI, site soft without hematoma. Pulses positive x 4 extremities. No edema. Bed in low and locked position, call duran within
reach.
--- NOTE | 2025-05-10 11:52 | W.PN.CARDCBS ---
Addendum entered and electronically signed by Monse Blackmon DO 05/10/25 13:54:
I saw and examined the patient.
The Electronics Design Engineer's note was reviewed and I agree with the note.
Comment: Seen and examined this morning. Currently chest pain-free but had a recurrent episode this morning resolved with sublingual nitroglycerin.
GEN: No distress, awake, alert, oriented x3
HEENT: mmm
LUNGS: Crackles B/L bases, no wheezes
CV: Reg, S1/S2, no murmur
ABD: soft, BS+, NT/ND
EXT: No edema
NEURO: Gross non-focal
Plan:
Medically complex 75-year-old female presenting with chest discomfort and non-STEMI with multivessel coronary artery disease status post distal left main into circumflex and proximal LAD PCI in October found to have accelerated restenosis with a distal
left main and stenting into the ostial LAD and ostial circumflex with stable 60-70% ostial RCA stenosis.
-Recurrent chest pain but currently chest pain-free. Discussed plan with CT surgery service�for now medical therapy with plan for CABG Tuesday, sooner if necessitates.
- Continue IV heparin drip awaiting Plavix washout along with aspirin
-Increase Nitropaste to 1 inch. Patient did not tolerate IV nitroglycerin with significant hypotension in the setting of left main disease.
-Nephrology following with chronic kidney disease�creatinine currently 2.7.
-Ischemic cardiomyopathy with echo 05/07/2025 demonstrated mildly reduced LV systolic function, 40-45%.
- Appears euvolemic. Goal-directed medical therapy optimization limited by chronic kidney disease and hypotension.
- Will follow with you
Original Note:
Today's Communication / Plan
-
continue IV heparin
increase nitropaste
presently planned for CABG Sunday 05/13 after plavix washout
follow Cr
Impression / Plan
-
PCP: Dr. Carlton
Assistant Chief Nursing Officer: Dr. VICKY Danielson
Impression:
Admitted with chest pain and NSTEMI 05/06/2025
NSTEMI, troponin up to 23 and trending
Admission for acute HF and elevated troponin 11/26/24 until 11/28/2024
Admission for NSTEMI, MV CAD with distal LM into circumflex and distal LM into proximal LAD PCI, acute HF and JESI 10/29/2024 until 11/16/2024
Abnormal LFTs, elevated AST
JESI on CKD 4
CAD
s/p 2.5 mm Xience OM1 PCI 02/12/2019
s/p Xience prox and overlapping previously placed distal OM-1 05/17/2019
s/p 2.5 mm Xience OM1 PCI 01/20/21
NSTEMI, s/p complex MATT distal LM into LCx/OM1 3.0 x 22 mm [employer] [place] drug-eluting stent and from distal LM into proximal LAD 2.75 x 18 mm Med[employer]onic [place] drug-eluting stent 11/14/2024
PAD
s/p R common femoral endarterectomy w/ patch angioplasty and covered R iliac stent 01/2024
s/p right SFA angioplasty and stent 04/2020
h/o COVID 19 w/ residual parenchymal scarring
HTN
HLD
DM2
h/o Henoch-Sanna�nlein purpura
Glaucoma
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
h/o gastric bypass 2010
h/o angioedema on ZAY inhibitors
Aortic atherosclerosis
h/o orthostasis on Terazosin
h/o TIA 2016
Iron deficiency anemia
Echo 08/06/2020: EF 64%. Mild LVH. Normal RV. Mild MAC with mild MR. No AI or . Trace TR. PAP 29 mmHg
Echo 01/19/2021: EF 55-60%, stage I diastolic dysfunction, trace MR, trace TR, PAP 21 mmHg
Echo 10/29/2024: EF 40-45%, Stage I diastolic dysfunction, mild inferolateral and inferior hypokinesis
Echo 11/14/2024: EF 50 to 55%. No significant valvular disease. No pericardial effusion.
Echo 05/07/2025: Study pending
Cardiac cath 11/01/2024: Left main 60% distal. LAD 40% ostial. Circumflex: Hazy 80% ostial, stents in OM1 with moderate diffuse ISR, smaller daughter branch of OM1 with 70% stenosis. RCA 60 to 70% ostial stenosis
Cardiac cath 11/14/2024: Successful complex percutaneous coronary artery intervention with one 3.0 x 22 mm [employer] [place] drug-eluting stent from distal left main into left circumflex artery/OM1 and a second 2.75 x 18 mm Medtronic [place] drug-eluting
stent from distal left main into proximal LAD
Cardiac cath 05/08/25: Accelerated restenosis (ISR) with distal LM extending into ostial LAD (70-80%) and ostial LCx (95%), 60-70% stable ostial RCA stenosis.
Plan:
-Presenting with chest discomfort found to have rising troponin which peaked at 24.9 consistent with NSTEMI, trop downtrending.
-last evening had additional episode of chest discomfort. restarted IV heparin and placed back on nitro paste. this morning had additional episode of 5/10 chest pain, relieved with SL nitro however with resultant hypotension with SBP to 90s. will
increase nitropaste from 0.5 to 1. d/w CT surgery. will follow. presently planned for CABG Sunday 05/13 after plavix washout
-continue asa
-nephrology following as felt to be high risk for BERYL. Cr improving, 2.7 on 05/10. lasix presently on hold
-Echo 05/07/2025 with mildly reduced LV systolic function. cont GDMT optimization given ischemic CM, limited by hypotension, CKD. holding toprol 25mg for now, will attempt to give if BP improves throughout morning
-d/w nursing
Patient came to the ER yesterday with chest pain and initial troponin was 1.65 and has now trended up to 23.2 prompting cardiology consultation for NSTEMI. Patient had a prolonged admission from 10/29/2024 until 11/16/2024 for NSTEMI and cardiac cath
showed MV CAD. Patient was initially seen in consultation by CT surgery and there is consideration for CABG, but this was ultimately deferred due to JESI on CKD and patient instead had high risk PCI with stenting of the distal left main into the
circumflex and distal left main into the proximal LAD on 11/14/2024. Patient was discharged home and then readmitted 2 weeks later with acute HF and CKD. Patient was then doing well and had last seen Dr. Danielson in the office on 01/31/2025. 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
for her and she started that job last week. In the meantime patient called the office with chest pain on 04/23/2025 and was advised to go to the ER for evaluation given her complex CAD history, she ended up not going to the ER because she was
afraid she would miss her first day of work. Instead she was taking NTG SL several times a day for chest pain. Chest pain is described as being present on a daily basis and comes and goes throughout the day, it is a deep aching feeling and feels
similar to her previous AR pain. She finally came to the ER last night because she ran out of her NTG SL tablets and the pharmacy would not refill her prescription. She is distressed because she only had 2 days at her new job before she had to
come to the ER and is now missing work. Despite this she is pain-free on heparin gtt and Nitropaste. Initial troponin is 1.65 and now up to 23.2.
Progress Note - Assistant Chief Nursing Officer
Subjective
Date of Service: May 10, 2025
episode of chest pain relieved with SL nitro but then with hypotension, asymptomatic.
Objective
Labs:
05/09/25 04:31
05/10/25 07:09
Labs
Hgb 9.3 g/dL (12.0-16.0) L 05/09/25 04:31
Hct 29.7 % (37.0-47.0) L 05/09/25 04:31
Plt Count 171 10^3/uL (130-400) 05/09/25 04:31
PT 14.9 Sec (11.4-14.6) H 05/10/25 05:29
INR 1.12 05/10/25 05:29
APTT 94.6 Sec (23.4-35.0) H 05/10/25 05:29
Sodium Cancelled 05/10/25 07:09
Potassium Cancelled 05/10/25 07:09
BUN Cancelled 05/10/25 07:09
Creatinine Cancelled 05/10/25 07:09
Glucose Cancelled 05/10/25 07:09
Troponins
05/07/25 05/07/25 05/07/25
17:21 21:00 23:51
Troponin I 24.900 H* Cancelled 18.400 H* D
Vital Signs and I&O:
Vital Signs
Temp Pulse Resp BP Pulse Ox
98.2 F 54 16 128/59 97
05/10/25 11:02 05/10/25 10:11 05/10/25 11:02 05/10/25 10:11 05/10/25 11:02
Vital Signs
Temp Pulse Resp BP Pulse Ox
98.2 F 54 16 128/59 97
05/10/25 11:02 05/10/25 10:11 05/10/25 11:02 05/10/25 10:11 05/10/25 11:02
Intake & Output
05/08/25 05/09/25 05/10/25 05/11/25
07:59 07:59 07:59 07:59
Intake Total 480 / 480 732 / 732 336 / 336
Output Total 500 / 500 200 / 200
Balance 480 / 480 232 / 232 136 / 136
Physical Exam
Physical Exam
GEN: No distress, awake, alert, oriented x3
HEENT: supple, anicteric, mmm, eomi
LUNGS: Crackles B/L bases, no wheezes
CV: Reg, S1/S2, no murmur
ABD: soft, BS+, NT/ND
EXT: No cyanosis, clubbing, edema
NEURO: Gross non-focal
SKIN: Warm, pink, dry. No rash
[2025-05-10] MEDS: NITRO-BID 1 INCH TOPICAL (12:30)
--- NOTE | 2025-05-10 12:52 | W.PN.NEPH.PH ---
Today's Communication / Plan
-
resume po lasix
follow labs
Assessment/Plan
-
IMP:
NSTEMI
CHr CHFpEF
chronic ILD/fibrosis
JESI with CKD stage 4 (baseline Cr� 2.5)-follows Dr Cast
DM2
CAD hx of MA, hx of stents last in October 2024
HTN
DM
GERD
h/o ACEI angioedema
h/o Henoch-Schonlein purpura
Gastric bypass 2010
ALISHA, mild, with nocturnal hypoxemia
PAD, SFA stent Apr 2020
Plan:
A/w NSTEMI
mild Jesi with CKD4 -cr improving to 2.7 s/p contrast 05/08
LHC shows MVD, Severely elevated LVEDP in setting of severe hypertension.
plan CABG Tuesday, resume home lasix
CP-meds adjusted per cards
BP stable
chr met acidosis son po bciarb -stable
follow labs and wts
d/w pt in detail about high risk of JESI and dialysis with upcoming surg which she understands and would accept dialysis if needed
OK to place trialysis catheter during surg
Dr Enamorado reviewed with CT surg on 05/09
high risk encounter
-
-
Date of Service: May 10, 2025
CC / HPI / ROS
-
Chief Complaint:
Chest pain shortness of breath
History of Present Illness:
cr down to 2.7, BP stable
wt no change
CP last evening and this am
Review of Systems:
no SOB, no active cp
no n/v
Labs
-
Labs:
WBC 6.5 10^3/uL (4.8-10.8) 05/09/25 04:31
RBC 3.73 10^6/uL (4.20-5.40) L 05/09/25 04:31
Hgb 9.3 g/dL (12.0-16.0) L 05/09/25 04:31
Hct 29.7 % (37.0-47.0) L 05/09/25 04:31
Plt Count 171 10^3/uL (130-400) 05/09/25 04:31
Sodium Cancelled 05/10/25 07:09
Potassium Cancelled 05/10/25 07:09
Chloride Cancelled 05/10/25 07:09
Carbon Dioxide Cancelled 05/10/25 07:09
BUN Cancelled 05/10/25 07:09
Creatinine Cancelled 05/10/25 07:09
eGFR Cancelled 05/10/25 07:09
Glucose Cancelled 05/10/25 07:09
Calcium Cancelled 05/10/25 07:09
Avh-C-Ewzqdyvsrdh Pept 8100 pg/ml 05/06/25 16:21
Albumin 3.4 g/dl (3.5-5.0) L 05/10/25 05:29
Physical Exam
-
Vital Signs:
Vital Signs
Temp Pulse Resp BP Pulse Ox
98.2 F 54 16 128/59 97
05/10/25 11:02 05/10/25 10:11 05/10/25 11:02 05/10/25 10:11 05/10/25 11:02
Cardiovascular:: Regular rate and rhythm
Respiratory:: Bilateral: Rales
Lung Excursion:: Normal
Abdomen:: Nontender and Soft
Bowel Sounds:: Normal
Extremity Edema:: None: Bilateral:
Cortez Catheter: No
[2025-05-10 12:57] LABS: Glucose - Point of Care 387 mg/dl (70-99)
[2025-05-10] MEDS: NOVOLOG FLEXPEN-LOW RESISTANCE 5 UNITS SC (12:58)
[2025-05-10] MEDS: TOPROL XL 25 MG PO (12:59)
--- NOTE | 2025-05-10 13:00 | PTCARENOTE ---
Blood sugar was obtained after patient ate lunch. Blood sugar 387, coverage given as ordered.
--- NOTE | 2025-05-10 13:30 | PTCARENOTE ---
Call received from skill labor to receive report on patient. Report given verbally, questions answered. Patient belongings gathered, wearing eyeglasses. Dr. Reynolds came to speak with patient about procedure, consent obtained. Belongings brought to
[facility] room 7677.
--- NOTE | 2025-05-10 14:15 | ITS.CL.PN ---
[employer] - Procedure Note
Procedure
Procedure Note:
CARDIAC CATHETERIZATION REPORT
Date of Procedure: 05/10/2025
Referring: Dr. Edgardo Cline MD
Indication: anginal chest pain at rest despite medical management with known severe coronary artery disease pending surgical revascularization
PROCEDURE: Intra-aortic balloon pump insertion
ACCESS: 8F left common femoral artery
MODERATE SEDATION: 25 minutes of moderate sedation was utilized. An independent certified medical technician assistant was present to assist with and help manage the patient's level of consciousness and physiologic status.
PROCEDURE DESCRIPTION: Left common femoral artery access was obtained under fluoroscopic and ultrasound guidance. With fluoroscopic guidance, a 40 cc intra-aortic balloon pump was placed and therapy initiated one-to-one. The balloon pump was secured
with StatLock and the sheath sutured in place. The patient tolerated the procedure well without complication.
CONCLUSION: Successful placement of a intra-aortic balloon pump via left common femoral artery access.
RECOMMENDATIONS
1. Chest x-ray once patient returns to floor and daily to monitor balloon pump positioning
2. Resume heparin without bolus
3. Surgical planning
Signed: Thai Charles MD, PhD
[2025-05-10] MEDS: APRESOLINE 5 MG IV (16:04)
--- NOTE | 2025-05-10 16:15 | PTCARENOTE ---
Addendum entered by Kimberli Trevizo RN 05/10/25 18:15:
Pt denies chest pain.
Original Note:
Pt received from section laborer. To room 2261. Pt AAOx3. Appropriate. BECKER. SB to sinus rhythm on the tele monitor. HR 50-60s. Audible heart tones. BP high. SBP's 190-200s. MAPs>100. B/L radial pulses palpable. B/L DP pulses present via doppler. No edema.
Pt on RA. POX 97-99%. Lung sounds diminished w/ crackles in b/l bases. Deep breathing encouraged. Abdomen soft. +BSx4. Pt educated about pure wick catheter. Pt reports no hx of trouble voiding. Right arm PIV x1 intact. Left fem IABP secure, 1:1,
additional information as documented in worklist. Briefly placed in standby for assessment, then resumed. Christina Castellanos contacted via TT about labs/EKG - not needed at this time. Nikkie Chua at the bedside, one time dose hydralazine for high BPs.
IABP received @ 1:1 setting, per randy Chua to change to 2:1 d/t high BPs. To change back to 1:1 if pt experiencing CP. Heparin infusing @ 800 units/hr. Pt educated about laying flat and keeping left leg straight. Xray completed. See worklist for
full nursing assessment and interventions.
[2025-05-10] MEDS: NITROGLYCERIN PREMIX 250 IV (16:43)
--- NOTE | 2025-05-10 16:43 | CM ---
spoke to pt in room, we discussed preop CABG teaching including sternal and driving restrictions. she is pr [place], lives with her husb in a 3 story home with 2 steps to enter. she has a RW at home to use if needed. she is agreeable toa f/u visit
from the ct transitional care nurse after dc. plan is for CABG tuesday, cm role explained and all questions answered.
[2025-05-10 17:46] LABS: Glucose - Point of Care 124 mg/dl (70-99)
[2025-05-10 17:54] LABS: APTT 61.2 Sec (23.4-35.0)
--- NOTE | 2025-05-10 20:30 | PTCARENOTE ---
Patient received resting in bed watching television. Patient A+A+Ox3. No neurological deficits noted. No c/o headache, dizziness or lightheadedness. Bedrest. Keep left leg straight at all times. IABP - 8F Left Common Femoral Artery - EKG
Trigger - 1:2 Frequency. Waveform within normal limits. Left femoral site - Dressing intact - No hematoma, bleeding or oozing from site. Positive, palpable radial pulses. Positive Dorsalis pedis pulses via Doppler. Vital signs/IABP as
documented. Patient with no c/o pain or discomfort. Room air. SpO2 97%. No adventitious breath sounds noted. Sinus Bradycardia. Heart rate 50's. Abdomen soft, nontender. Normoactive bowel sounds. No BM. No c/o nausea. No vomiting.
Patient with no c/o back or flank pain. Female external urinary device (Pure Wick) in place. IV Heparin infusing at 1,000 units/hr (10 ml/hr). Nitro gtt started at 2.5 mcq/min (0.4 ml/hr) per PA order - Maintain MAP <110. Patient with no c/o
chest pain, pressure or discomfort. Assessment as documented.
[2025-05-10 20:51] LABS: Glucose - Point of Care 203 mg/dl (70-99)
[2025-05-10] MEDS: HEPARIN 25000 UNITS/250 ML IV (21:15)
[2025-05-10 22:15] LABS: Blood Urea Nitrogen 75 mg/dl (7-17); Calcium 8.2 mg/dl (8.4-10.2); Carbon Dioxide 27 mmol/L (22-30); Chloride 101 mmol/L (98-107); Estimated Creatinine Clearance 15 ml/min; Glucose 190 mg/dl (70-99); Potassium 3.9 mmol/L (3.5-5.1); Sodium 131 mmol/L (135-145); eGFR 17.84
[2025-05-10] MEDS: LYRICA 150 MG PO (22:51)
--- NOTE | 2025-05-10 23:00 | PTCARENOTE ---
Patient dozing intermittently. No c/o chest pain, pressure or discomfort. BMP lab collected and sent - Reviewed results with PA for CT Surgery - No changes in plan of care. IV Nitro gtt at 5 mcq/min (0.8 ml/hr) to maintain MAP <110. Assessment
as documented.
[2025-05-11] VITALS (33 sets, daily range): BP systolic 100–194; BP diastolic 38–145; BMI 26.4
--- NOTE | 2025-05-11 01:00 | PTCARENOTE ---
PTT result >200. IV Heparin gtt placed on Hold. PA for CT Surgery made aware. IABP left groin site intact - No hematoma, bleeding or oozing noted.
Patient with no c/o back or flank pain. Assessment/Interventions as documented.
[2025-05-11 01:01] LABS: APTT > 200 Sec (23.4-35.0)
--- NOTE | 2025-05-11 03:15 | PTCARENOTE ---
IV Heparin gtt restarted at decreased rate 200 units. IV Heparin gtt now infusing at 800 units/hr (8 ml/hr). PTT 6hrs after restart - 0900. Patient with c/o mild SOB - SpO2 Room air 97%. O2 2L via NC placed on patient - SpO2 100%. Patient now
sleeping without difficulty. Assessment/Interventions as documented.
[2025-05-11 04:42] LABS: Hematocrit 28.8 % (37.0-47.0); Hemoglobin 8.8 g/dL (12.0-16.0); Mean Corp Hgb Conc. 30.6 g/dL (33.0-37.0); Mean Corpuscular Volume 84.2 fL (81.0-99.0); Platelet Count 147 10^3/uL (130-400); Red Cell Dist. Width 19.4 % (11.5-14.5)
[2025-05-11 04:59] LABS: Blood Urea Nitrogen 70 mg/dl (7-17); Calcium 8.2 mg/dl (8.4-10.2); Carbon Dioxide 29 mmol/L (22-30); Chloride 104 mmol/L (98-107); Estimated Creatinine Clearance 16 ml/min; Glucose 152 mg/dl (70-99); Magnesium 2.2 mg/dl (1.6-2.3); Potassium 3.9 mmol/L (3.5-5.1); Sodium 138 mmol/L (135-145); eGFR 18.67
--- NOTE | 2025-05-11 05:30 | PTCARENOTE ---
Patient with urge to void but unable to void. Pure Wick external female device removed. Bladder scanned for 824 ml. PA made aware - Order for Cortez placement for urinary retention. 16FR Temperature sensing Cortez catheter placed - 800 ml yellow
urine. Patient given CHG wipe bath and linens changed. AM lab work sent. Portable CXR completed. IV Heparin gtt and IV Nitro gtt. Patient back to sleep. Assessment/Interventions as documented.
[2025-05-11] MEDS: TYLENOL 650 MG PO (08:04)
[2025-05-11] MEDS: PROTONIX 40 MG PO (08:05)
[2025-05-11] MEDS: ZETIA 10 MG PO (08:05)
[2025-05-11] MEDS: LASIX 40 MG PO (08:11)
[2025-05-11] MEDS: TOPROL XL PO (08:11)
[2025-05-11] MEDS: SODIUM BICARBONATE 650 MG PO (08:11)
[2025-05-11] MEDS: LIPITOR 80 MG PO (08:11)
[2025-05-11] MEDS: LOW STRENGTH ASPIRIN 81 MG PO (08:11)
[2025-05-11] MEDS: LANTUS 0.12 UNITS SC ×2 (08:13→20:25)
[2025-05-11 08:14] LABS: Glucose - Point of Care 162 mg/dl (70-99)
[2025-05-11] MEDS: NOVOLOG FLEXPEN-LOW RESISTANCE 1 UNITS SC ×2 (08:15→12:41)
--- NOTE | 2025-05-11 08:57 | W.PN.UPDATE ---
Update Note
Progress Note Update
Chest x-ray appears little more edematous today. Will plan to increase diuresis to Lasix IV twice daily preparation for OR Tuesday. Feels better with intra-aortic balloon pump augmentation. Denies any chest pain.
--- NOTE | 2025-05-11 09:00 | PTCARENOTE ---
Assumed care of pt from nightshift RN. Walking rounds completed. Pt AAOx3. Appropriate. Bedrest s/p left fem IABP. 2:1 setting. Site soft/intact. See worklist for full settings. Sinus alfredito on the tele monitor. HR 50s. Audible heart tones. Denies
chest pain at this time. B/L radial pulses palpable. B/L DP pulses present via doppler. Pt on 2 L NC. POX 98-100%. Lung sounds diminished anteriorly. Deep breathing encouraged. Abdomen soft. Good appetite. +BSx4. Cortez catheter intact and draining
yellow urine. Sacral foam intact. B/L heel foams intact. Right arm PIV x2. Pt repositioned as documented. PRN Tylenol for moderate back pain. See worklist for full nursing assessment and interventions. Pt updated w/ plan for the day. Call duran
within reach.
[2025-05-11] MEDS: LASIX 40 MG IV ×2 (09:21→16:16)
[2025-05-11 09:49] LABS: APTT 128.9 Sec (23.4-35.0)
--- NOTE | 2025-05-11 11:07 | W.PN.HOSP.TC ---
Addendum entered and electronically signed by Kellee Rios MD 05/11/25 12:15:
Attending�addendum:
I saw and evaluated the patient. I reviewed the resident�s note and agree with findings and plan as documented in the resident�s note.��patient seen and examined at bedside, status post balloon pump yesterday.
Chest pain improved stable plan for CABG on Tuesday.
Physical�exam:
GENERAL : Patient is awake, alert, oriented x3
HEENT: Nonicteric sclerae, PERRLA, EOMI. Oropharynx clear. Moist mucous membranes. Conjunctivae appear well perfused.
CHEST: Chest wall is nontender.
HEART: Regular rate and rhythm without murmurs.
LUNGS: Clear to auscultation bilaterally.
ABDOMEN: Soft, positive bowel sounds, nontender, no organomegaly.
RECTAL: Deferred.
MUSCLES/EXTREMITIES: No abnormal range of motion, no swelling.SKIN: No rash, no excessive bruising, petechiae, or purpura.
NEUROLOGIC: Cranial nerves II-XII intact without motor/sensory deficit.
�
Assessment/plan:
Non-STEMI.
Appreciate cardiology/nephrology input.
status post cardiac cath 05/08
Plan for CABG on Tuesday
Continue with the chest pain, increased Nitropaste
05/11
Status post balloon pump
Chronic diastolic CHF.
Lasix on hold in setting of JESI
Acute kidney injury on CKD 4.
Appreciate nephrology input
Creatinine stable
CODE STATUS: Full code
DVT prophylaxis: Heparin
Diet: Diabetic
Medication: Discussed with brother at bedside.
Disposition: CABG on Tuesday continue monitor and CIVU
�
Total time spent on today�s encounter was 60 minutes which included time spent in counseling the patient/family regarding diagnosis and treatment plan as listed above, goals of care, and symptom management. Case was discussed with nursing staff,
specialists, and care coordinators/case management. All labs and imaging personally reviewed by me. Remainder the time spent in detailed review of previous records, lab data, imaging, and other medical provider documentation
Original Note:
Today's Communication/Plan
-
Successful IABP yesterday.
Increase Lasix to IV BID per CTS recommendations.
Continue Plavix washout; OR for MIDCAB vs. traditional tomorrow.
Assessment / Plan
Assessment / Plan
Steph Luong is a 75 y/o F w/ PMHX CAD (s/p multiple PCI/stent/MATT with most recent being 11/14/24), GERD, HTN, HLD, IDDM, CKD Stage 4, celiac aa. dissection, chronic anemia, and ILD who is presenting with 1 week of substernal, daily chest pain
episodes that resolve with SL NTG with marked elevation and uptrend of cardiac biomarkers and EKG showing ischemic changes in the lateral leads. Patient was admitted to the IMU and started on heparin drip, NTG paste, and made NPO for invasive
coronary angiography.
1. NSTEMI
- Substernal anginal symptoms x 1 week alleviated by NTG;
- Troponin (ED): 1.65 --> 14.7 --> 23.2 --> 18; troponin trended to peak
- ECG (ED) showing anterolateral ST changes
- Started on heparin gtt
- Continue ASA/Statin/Zetia
- P2y12 testing shows adequate antiplatelet response to Plavix
- ECHO (05/08): EF 40-45%, inferior and inferolateral hypokinesis
- L Heart Cath (05/08): Severe rapid/accelerated in-stent restenosis of distal LM extending into ostial LAD and LCX after recently placed stents on November 14, 2024. Severely elevated LVEDP in setting of severe hypertension.
- IABP for temporary support; placed 05/11
- No symptoms since
- CT Surgery recommendations appreciated: MIDCAB vs traditional CABG on Tuesday
- Continue Plavix washout; continue Heparin drip
2. Chronic HFpEF
- BNP 8100 (83705 at last admission)
- Euvolemia on exam
- Daily weights/I/Os
- ECHO: EF 40-45%
- Per CTS, worsened pulmonary congestion on postprocedural CXR
- Increase Lasix to IV BID
3. Acute Kidney Injury or CKD 4
- Creatinine on admission 2.9 (baseline 2.3-2.5); improvement to 2.6 this AM
- Follow BMP
- IVF hydration limited in setting of CHF
4. History of GERD
- Continue Pantoprazole
- Alternative considered, but adequate antiplatelet response to Plavix
5. HTN
- BPs are at goal; continue to monitor
6. HLD
- Statin restarted
7. Transaminitis (resolved)
- Statin restarted; continue to monitor
- Potential from decreased perfusion in setting of LV dysfcn 2/2 NSTEMI?
8. IDDM
- Continue Lantus and corrective
- Hypoglycemia this morning, but diet restarted since procedure deferred
9. Chronic Anemia
- Daily CBC
10. Interstitial Lung Disease
- Stable
11. Mild asymptomatic Hyponatremia
- Repeat BMP in AM
Code: FULL
Diet: Cholesterol Lowering
DVT: Hep
Anticipated Discharge: > 48 hours
Subjective/Interval History
-
Date of Service: May 11, 2025
Feeling well overall.
Denies any chest pain episodes since IABP.
States she had one episode of SOB last night, improved with supplemental O2.
Otherwise denies any acute complaints overnight.
Objective Data
-
Labs:
Laboratory Results
05/11/25 05/11/25 05/11/25
00:23 04:14 05:00
WBC 7.5
Hgb 8.8 L
Hct 28.8 L
Plt Count 147
APTT > 200 H* Cancelled
Sodium 138
Potassium 3.9
Chloride 104
Carbon Dioxide 29
BUN 70 H
Creatinine 2.6 H
Glucose 152 H
Calcium 8.2 L
05/11/25 05/11/25 05/11/25
09:25 12:00 16:30
WBC
Hgb Pending
Hct Pending
Plt Count
APTT 128.9 H Pending
Sodium Pending
Potassium Pending
Chloride Pending
Carbon Dioxide Pending
BUN Pending
Creatinine Pending
Glucose Pending
Calcium Pending
Vital Signs:
Vital Signs
Temp Pulse Resp BP Pulse Ox
98 F 51 16 181/93 98
05/11/25 08:00 05/11/25 11:00 05/11/25 11:00 05/11/25 10:00 05/11/25 11:00
I&O
05/10/25 05/11/25 05/12/25
06:59 06:59 06:59
Intake Total 336 / 336 615.0 / 623.8 40.2 / 40.2
Output Total 200 / 200 830 / 830 325 / 325
Balance 136 / 136 -215.0 / -206.2 -284.8 / -284.8
Review of Systems
-
History Source: Patient
All other systems: Reviewed and negative
Physical Exam
-
General: Well Developed, Well Nourished, No Apparent Distress, Comfortable and Conversant
HEENT: Normocephalic, Atraumatic and Moist Mucous Membranes
Respiratory: Clear to Auscultation and Non Labored Respirations
Cardiac: Regular Rhythm and S1/S2; Negative Murmur
GI: Soft
Musculoskeletal: No Clubbing, No Cyanosis and No Edema
Skin: Warm
Neuro: Awake, Alert and Oriented
Psych: Calm
Data Reviewed
-
Diagnostic Radiology: Image personally visualized and interpreted, Report Reviewed by me and Discussed with Patient
Labs: Labs Reviewed by me and Discussed with Patient
--- NOTE | 2025-05-11 11:59 | W.PN.CARDCBS ---
Today's Communication / Plan
-
Diurese
Maintain balloon pump and monitor hemodynamics
Maintain IV heparin
Follow lab work/renal function
Check chest x-ray
Impression / Plan
-
PCP: Dr. Carlton
Social Sciences Instructor: Dr. VICKY Danielson
Impression:
Admitted with chest pain and NSTEMI 05/06/2025
NSTEMI, troponin up to 23 and trending
Admission for acute HF and elevated troponin 11/26/24 until 11/28/2024
Admission for NSTEMI, MV CAD with distal LM into circumflex and distal LM into proximal LAD PCI, acute HF and JESI 10/29/2024 until 11/16/2024
Abnormal LFTs, elevated AST
JESI on CKD 4
CAD
s/p 2.5 mm Xience OM1 PCI 02/12/2019
s/p Xience prox and overlapping previously placed distal OM-1 05/17/2019
s/p 2.5 mm Xience OM1 PCI 01/20/21
NSTEMI, s/p complex MATT distal LM into LCx/OM1 3.0 x 22 mm Medtronics [place] drug-eluting stent and from distal LM into proximal LAD 2.75 x 18 mm Medtronic [place] drug-eluting stent 11/14/2024
PAD
s/p R common femoral endarterectomy w/ patch angioplasty and covered R iliac stent 01/2024
s/p right SFA angioplasty and stent 04/2020
h/o COVID 19 w/ residual parenchymal scarring
HTN
HLD
DM2
h/o Henoch-Sanna�nlein purpura
Glaucoma
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
h/o gastric bypass 2010
h/o angioedema on ZAY inhibitors
Aortic atherosclerosis
h/o orthostasis on Terazosin
h/o TIA 2016
Iron deficiency anemia
Echo 08/06/2020: EF 64%. Mild LVH. Normal RV. Mild MAC with mild MR. No AI or . Trace TR. PAP 29 mmHg
Echo 01/19/2021: EF 55-60%, stage I diastolic dysfunction, trace MR, trace TR, PAP 21 mmHg
Echo 10/29/2024: EF 40-45%, Stage I diastolic dysfunction, mild inferolateral and inferior hypokinesis
Echo 11/14/2024: EF 50 to 55%. No significant valvular disease. No pericardial effusion.
Echo 05/07/2025: Study pending
Cardiac cath 11/01/2024: Left main 60% distal. LAD 40% ostial. Circumflex: Hazy 80% ostial, stents in OM1 with moderate diffuse ISR, smaller daughter branch of OM1 with 70% stenosis. RCA 60 to 70% ostial stenosis
Cardiac cath 11/14/2024: Successful complex percutaneous coronary artery intervention with one 3.0 x 22 mm [employer]tronics [place] drug-eluting stent from distal left main into left circumflex artery/OM1 and a second 2.75 x 18 mm Medtronic [place] drug-eluting
stent from distal left main into proximal LAD
Cardiac cath 05/08/25: Accelerated restenosis (ISR) with distal LM extending into ostial LAD (70-80%) and ostial LCx (95%), 60-70% stable ostial RCA stenosis.
Plan:
Medically complex 75-year-old female presenting with chest discomfort and non-STEMI with multivessel coronary artery disease status post distal left main into circumflex and proximal LAD PCI in October found to have accelerated restenosis with a distal
left main and stenting into the ostial LAD and ostial circumflex with stable 60-70% ostial RCA stenosis.
-Placement of intra aortic balloon pump 05/10/2025 currently 1:2
-Chest x-ray this morning with stable IABP position
-No further chest pain or pressure
-Continue IV heparin
-Check chest x-ray for balloon pump placement
-Monitor labs closely. Renal function stable, creatinine 2.6.
-Appreciate nephrology input
-Diurese as per CT surgery
-Continue low-dose nitroglycerin ip
-Statin restarted
-Plan for CABG tomorrow or Tuesday following Plavix washout
- Discussed with CT surgery team and nursing
Patient came to the ER yesterday with chest pain and initial troponin was 1.65 and has now trended up to 23.2 prompting cardiology consultation for NSTEMI. Patient had a prolonged admission from 10/29/2024 until 11/16/2024 for NSTEMI and cardiac cath
showed MV CAD. Patient was initially seen in consultation by CT surgery and there is consideration for CABG, but this was ultimately deferred due to JESI on CKD and patient instead had high risk PCI with stenting of the distal left main into the
circumflex and distal left main into the proximal LAD on 11/14/2024. Patient was discharged home and then readmitted 2 weeks later with acute HF and CKD. Patient was then doing well and had last seen Dr. Danielson in the office on 01/31/2025. Patient
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
for her and she started that job last week. In the meantime patient called the office with chest pain on 04/23/2025 and was advised to go to the ER for evaluation given her complex CAD history, she ended up not going to the ER because she was
afraid she would miss her first day of work. Instead she was taking NTG SL several times a day for chest pain. Chest pain is described as being present on a daily basis and comes and goes throughout the day, it is a deep aching feeling and feels
similar to her previous OK pain. She finally came to the ER last night because she ran out of her NTG SL tablets and the pharmacy would not refill her prescription. She is distressed because she only had 2 days at her new job before she had to
come to the ER and is now missing work. Despite this she is pain-free on heparin gtt and Nitropaste. Initial troponin is 1.65 and now up to 23.2.
Progress Note - Social Sciences Instructor
Subjective
Date of Service: May 11, 2025
Patient was seen and examined. Overnight no events. No chest pain or pressure. No shortness of breath.
Objective
Labs:
Labs
Hgb 8.8 g/dL (12.0-16.0) L 05/11/25 04:14
Hct 28.8 % (37.0-47.0) L 05/11/25 04:14
Plt Count 147 10^3/uL (130-400) 05/11/25 04:14
PT 14.9 Sec (11.4-14.6) H 05/10/25 05:29
INR 1.12 05/10/25 05:29
APTT 128.9 Sec (23.4-35.0) H 05/11/25 09:25
Sodium 138 mmol/L (135-145) 05/11/25 04:14
Potassium 3.9 mmol/L (3.5-5.1) 05/11/25 04:14
BUN 70 mg/dl (7-17) H 05/11/25 04:14
Creatinine 2.6 mg/dL (0.6-1.0) H 05/11/25 04:14
Glucose 152 mg/dl (70-99) H 05/11/25 04:14
Vital Signs and I&O:
Vital Signs
Temp Pulse Resp BP Pulse Ox
98 F 51 16 181/93 99
05/11/25 08:00 05/11/25 11:00 05/11/25 11:00 05/11/25 10:00 05/11/25 11:00
Vital Signs
Temp Pulse Resp BP Pulse Ox
98 F 51 16 181/93 99
05/11/25 08:00 05/11/25 11:00 05/11/25 11:00 05/11/25 10:00 05/11/25 11:00
Intake & Output
05/09/25 05/10/25 05/11/25 05/12/25
06:59 06:59 06:59 06:59
Intake Total 732 / 732 336 / 336 615.0 / 623.8 40.2 / 40.2
Output Total 500 / 500 200 / 200 830 / 830 325 / 325
Balance 232 / 232 136 / 136 -215.0 / -206.2 -284.8 / -284.8
Physical Exam
Physical Exam
GEN: No distress, awake, alert, oriented x3
HEENT: mmm
LUNGS: Exam limited with balloon pump. Decreased bases, fine crackles right base.
CV: Reg, S1/S2, no murmur
ABD: soft, BS+, NT/ND
EXT: No edema. IABP 1:2. Warm distal extremity. positive pulses
NEURO: Gross non-focal
--- NOTE | 2025-05-11 12:32 | W.PN.NEPH.PH ---
Today's Communication / Plan
-
follow labs on diuretics
Assessment/Plan
-
IMP:
NSTEMI
CHr CHFpEF
chronic ILD/fibrosis
JESI with CKD stage 4 (baseline Cr� 2.5)-follows Dr Cast
DM2
CAD hx of AR, hx of stents last in October 2024
HTN
DM
GERD
h/o ACEI angioedema
h/o Henoch-Schonlein purpura
Gastric bypass 2010
ALISHA, mild, with nocturnal hypoxemia
PAD, SFA stent Apr 2020
Plan:
A/w NSTEMI
mild Jesi with CKD4 -cr improving to 2.6 s/p contrast 05/08
LHC shows MVD, Severely elevated LVEDP in setting of severe hypertension.
plan CABG Tuesday,
she is s/p IABP on 05/10 with improved cp
agree with IV lasix for volume, wean O2 as able
chr met acidosis son po bciarb -evolving met alkalosis-lower bicarb to daily
follow labs and wts
d/w pt in detail about high risk of JESI and dialysis with upcoming surg which she understands and would accept dialysis if needed
OK to place trialysis catheter during surg
Dr Enamorado reviewed with CT surg on 05/09
high risk encounter
-
-
Date of Service: May 11, 2025
CC / HPI / ROS
-
Chief Complaint:
Chest pain shortness of breath
History of Present Illness:
cr down to 2.6, BP stable
wt no change
IABP 05/10
Review of Systems:
improving CP and SOB
no n/v
Labs
-
Labs:
WBC 7.5 10^3/uL (4.8-10.8) 05/11/25 04:14
RBC 3.42 10^6/uL (4.20-5.40) L 05/11/25 04:14
Plt Count 147 10^3/uL (130-400) 05/11/25 04:14
eGFR 18.67 05/11/25 04:14
Vwl-O-Qufbtnncxlf Pept 8100 pg/ml 05/06/25 16:21
Albumin 3.4 g/dl (3.5-5.0) L 05/10/25 05:29
Physical Exam
-
Vital Signs:
Vital Signs
Temp Pulse Resp BP Pulse Ox
98 F 53 16 136/96 100
05/11/25 08:00 05/11/25 12:00 05/11/25 12:00 05/11/25 11:10 05/11/25 12:00
Cardiovascular:: Regular rate and rhythm
Respiratory:: Bilateral: Rales
Lung Excursion:: Normal
Abdomen:: Nontender and Soft
Bowel Sounds:: Normal
Extremity Edema:: None: Bilateral:
Cortez Catheter: No
[2025-05-11 12:42] LABS: Glucose - Point of Care 192 mg/dl (70-99)
[2025-05-11 12:45] LABS: Hematocrit 30.4 % (37.0-47.0); Hemoglobin 9.3 g/dL (12.0-16.0)
--- NOTE | 2025-05-11 13:39 | PTCARENOTE ---
No acute changes in assessment. Pt sinus rhythm on the tele monitor. HR 60-70s. BP 120-140s. MAPs 70-100s. Denies chest pain at this time. IABP remains 2:1. Left groin soft/intact. Pt on 2 L NC. POX 100%. Pt denies SOB. Cortez catheter intact and
draining adequate amounts of urine. Urine slightly blood tinged. CT ALISON aware. Pt repositioned for comfort. Pt remains flat in bed. Call duran within reach.
[2025-05-11 15:29] LABS: Blood Urea Nitrogen 69 mg/dl (7-17); Calcium 8.5 mg/dl (8.4-10.2); Carbon Dioxide 27 mmol/L (22-30); Chloride 103 mmol/L (98-107); Estimated Creatinine Clearance 16 ml/min; Glucose 194 mg/dl (70-99); Magnesium 2.2 mg/dl (1.6-2.3); Potassium 4.2 mmol/L (3.5-5.1); Sodium 136 mmol/L (135-145); eGFR 18.67
--- NOTE | 2025-05-11 16:33 | PTCARENOTE ---
No acute changes in assessment. Pt sinus rhythm w/ occasional PVC's on the tele monitor. HR 60-70s. Cuff BP 120-140s. MAPs 70-100s. BPs on balloon pump elevated. CT ALISON aware, nitro titrated up. Pt denies chest pain at this time. IABP remains 2:1.
Left groin soft/intact. Pt on RA. POX 95-96%. Pt denies SOB. Cortez catheter intact and draining adequate amounts of urine. Urine more clear. Pt repositioned for comfort. Pt remains flat in bed for balloon pump precautions. Call duran within reach.
[2025-05-11 17:09] LABS: APTT 104.5 Sec (23.4-35.0)
[2025-05-11 17:18] LABS: Glucose - Point of Care 216 mg/dl (70-99)
[2025-05-11] MEDS: NOVOLOG FLEXPEN-LOW RESISTANCE 2 UNITS SC (17:19)
[2025-05-11 20:19] LABS: Glucose - Point of Care 261 mg/dl (70-99)
--- NOTE | 2025-05-11 20:30 | PTCARENOTE ---
Patient received resting in bed watching television. Patient A+A+Ox3. No neurological deficits noted. No c/o headache, dizziness or lightheadedness. No c/o pain or discomfort. O2 at 2L via NC. SpO2 98%. Lungs slightly diminished. No
adventitious breath sounds noted. Sinus Rhythm. Heart rate 60's. No c/o chest pain, pressure or discomfort. IABP - 1:2 Frequency, EKG Trigger - Left Femoral Artery Site intact - No hematoma, bleeding or oozing noted - Dressing intact - Positive
circulation and sensation to left lower extremity - Positive Dorsalis pedis and Posterior tibial pulses via Doppler - Keep left leg straight at all times. Bedrest. Abdomen soft, nontender. Normoactive bowel sounds. No c/o nausea. No vomiting.
Cortez catheter - Temperature sensing - Yellow urine - Outputs as documented. No hematuria noted. Afebrile. No c/o back or flank pain. IV Heparin gtt. IV Nitro gtt. Assessment as documented.
[2025-05-11] MEDS: LYRICA 150 MG PO (21:54)
[2025-05-11] MEDS: NITROGLYCERIN PREMIX 250 IV (21:55)
[2025-05-11] MEDS: ROXICODONE 2.5 MG PO (22:26)
[2025-05-11 23:35] LABS: APTT 106.9 Sec (23.4-35.0)
[2025-05-12] VITALS (22 sets, daily range): BP systolic 106–199; BP diastolic 40–159; BMI 26.1
--- NOTE | 2025-05-12 | PTCARENOTE ---
Patient with c/o 6/10 lower back pain - PA for CT Surgery made aware - Roxicodone 2.5 mg PO ordered and given - Positive relief provided. PTT drawn - PTT result 106.9 - Therapeutic range - IV Heparin gtt remains at 700 units/hr (7 ml/hr). Patient
now sleeping. Assessment as documented.
--- NOTE | 2025-05-12 00:17 | W.PN.CT ---
Today's Communication / Plan
-
-IABP 1:2
-continue Heparin and Nitro
-last Plavix dose was on 05/08
-plans for CABG on 05/[address] Cline
-will need TEG checked preop Tuesday
-3pRBCs and 3 platelets ordered for OR
Assessment / Plan
-
Impression:
-Admitted with chest pain and NSTEMI 05/06/2025
-NSTEMI, troponin up to 24.9
-Admission for acute HF and elevated troponin 11/26/24 until 11/28/2024
-Admission for NSTEMI, MV CAD with distal LM into circumflex and distal LM into proximal LAD PCI, acute HF and JESI 10/29/2024 until 11/16/2024
-Abnormal LFTs, elevated AST
-JESI on CKD 4
-CAD
s/p 2.5 mm Xience OM1 PCI 02/12/2019
s/p Xience prox and overlapping previously placed distal OM-1 05/17/2019
s/p 2.5 mm Xience OM1 PCI 01/20/21
NSTEMI, s/p complex MATT distal LM into LCx/OM1 3.0 x 22 mm Medtronics [place] drug-eluting stent and from distal LM into proximal LAD 2.75 x 18 mm Medtronic [place] drug-eluting stent 11/14/2024PAD
s/p R common femoral endarterectomy w/ patch angioplasty and covered R iliac stent 01/2024
s/p right SFA angioplasty and stent 04/2020 h/o COVID 19 w/ residual parenchymal scarring
-HTN
-HLD
-DM2
-h/o Henoch-Sanna�nlein purpura
-Glaucoma
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
-h/o gastric bypass 2010
-h/o angioedema on ZAY inhibitors
-Aortic atherosclerosis
-h/o orthostasis on Terazosin
-h/o TIA 2016
-Iron deficiency anemia
Echo 08/06/2020: EF 64%. Mild LVH. Normal RV. Mild MAC with mild MR. No AI or . Trace TR. PAP 29 mmHg
Echo 01/19/2021: EF 55-60%, stage I diastolic dysfunction, trace MR, trace TR, PAP 21 mmHg
Echo 10/29/2024: EF 40-45%, Stage I diastolic dysfunction, mild inferolateral and inferior hypokinesis
Echo 11/14/2024: EF 50 to 55%. No significant valvular disease. No pericardial effusion.
Echo 05/07/2025: Study pending
Cardiac cath 11/01/2024: Left main 60% distal. LAD 40% ostial. Circumflex: Hazy 80% ostial, stents in OM1 with moderate diffuse ISR, smaller daughter branch of OM1 with 70% stenosis. RCA 60 to 70% ostial stenosis
Cardiac cath 11/14/2024: Successful complex percutaneous coronary artery intervention with one 3.0 x 22 mm Medtronics [place] drug-eluting stent from distal left main into left circumflex artery/OM1 and a second 2.75 x 18 mm Medtronic [place] drug-eluting
stent from distal left main into proximal LAD
Cardiac cath 05/08/25: Accelerated restenosis (ISR) with distal LM extending into ostial LAD (70-80%) and ostial LCx (95%), 60-70% stable ostial RCA stenosis.
Discussed patient care with: Nursing and Care Team
Subjective
-
Date of Service: May 12, 2025
Objective Data
-
PT 14.9 Sec (11.4-14.6) H 05/10/25 05:29
INR 1.12 05/10/25 05:29
APTT 106.9 Sec (23.4-35.0) H 05/11/25 23:12
Vital Signs
Vital Signs
Temp Pulse Resp BP Pulse Ox
98.4 F 58 15 144/94 94
05/11/25 22:00 05/11/25 23:25 05/11/25 23:25 05/11/25 21:00 05/11/25 23:25
CT Intake/Output/Weight
05/11/25 05/11/25 05/12/25
06:59 18:59 06:59
Intake Total 340.0 / 623.8 95.3 / 378.8 283.5 / 378.8
Output Total 830 / 830 1375 / 1675 300 / 1675
Balance -490.0 / -206.2 -1279.7 / -1296.2 -16.5 / -1296.2
SaO2: 94
Physical Exam
-
General: Awake and AOx3
Cardiovascular: Regular rate & rhythm and No Murmurs
Respiratory: Decreased Breath Sounds
Extremities: No Edema
Abdomen: soft, nontender, nondistended, + bowel sounds
Data Reviewed
-
Lab Results: Results Reviewed
Medications: Active Meds Reviewed
Chest X-Ray: Report Reviewed and Image Reviewed
ECG: Report Reviewed and Image Reviewed
[2025-05-12] MEDS: HEPARIN 25000 UNITS/250 ML IV (03:10)
--- NOTE | 2025-05-12 06:00 | PTCARENOTE ---
Patient A+A+Ox3. No neurological deficits noted. No c/o pain or discomfort. AM lab work collected and sent. Portable CXR completed. Patient given CHG bath, back rub and linens changed. Cortez catheter care completed. Patient resting in bed
without difficulty. Assessment/Interventions as documented.
[2025-05-12 06:09] LABS: Hematocrit 29.1 % (37.0-47.0); Hemoglobin 8.8 g/dL (12.0-16.0); Mean Corp Hgb Conc. 30.2 g/dL (33.0-37.0); Mean Corpuscular Volume 83.9 fL (81.0-99.0); Platelet Count 131 10^3/uL (130-400); Red Cell Dist. Width 19.3 % (11.5-14.5)
[2025-05-12 06:21] LABS: APTT 105.2 Sec (23.4-35.0)
[2025-05-12 06:45] LABS: Blood Urea Nitrogen 66 mg/dl (7-17); Calcium 8.4 mg/dl (8.4-10.2); Carbon Dioxide 29 mmol/L (22-30); Chloride 103 mmol/L (98-107); Estimated Creatinine Clearance 16 ml/min; Glucose 131 mg/dl (70-99); Magnesium 2.1 mg/dl (1.6-2.3); Sodium 139 mmol/L (135-145); eGFR 18.67
[2025-05-12 06:52] LABS: Potassium 4.2 mmol/L (3.5-5.1)
--- NOTE | 2025-05-12 07:47 | W.PN.HOSP.TC ---
Addendum entered and electronically signed by Kellee Rios MD 05/12/25 11:18:
Attending�addendum:
I saw and evaluated the patient. I reviewed the resident�s note and agree with findings and plan as documented in the resident�s note.��patient seen and examined at bedside, status post balloon pump yesterday.
Chest pain improved stable plan for CABG on Tuesday.
Physical�exam:
GENERAL : Patient is awake, alert, oriented x3
HEENT: Nonicteric sclerae, PERRLA, EOMI. Oropharynx clear. Moist mucous membranes. Conjunctivae appear well perfused.
CHEST: Chest wall is nontender.
HEART: Regular rate and rhythm without murmurs.
LUNGS: Clear to auscultation bilaterally.
ABDOMEN: Soft, positive bowel sounds, nontender, no organomegaly.
RECTAL: Deferred.
MUSCLES/EXTREMITIES: No abnormal range of motion, no swelling.SKIN: No rash, no excessive bruising, petechiae, or purpura.
NEUROLOGIC: Cranial nerves II-XII intact without motor/sensory deficit.
�
Assessment/plan:
Non-STEMI.
Appreciate cardiology/nephrology input.
status post cardiac cath 05/08
Plan for CABG on Tuesday
Continue with the chest pain, increased Nitropaste
05/11
Status post balloon pump
Chronic diastolic CHF.
Lasix on hold in setting of JESI
Acute kidney injury on CKD 4.
Appreciate nephrology input
Creatinine stable
CODE STATUS: Full code
DVT prophylaxis: Heparin
Diet: Diabetic
Medication: Discussed with brother at bedside.
Disposition: CABG on Tuesday continue monitor and CIVU
�
Total time spent on today�s encounter was 60 minutes which included time spent in counseling the patient/family regarding diagnosis and treatment plan as listed above, goals of care, and symptom management. Case was discussed with nursing staff,
specialists, and care coordinators/case management. All labs and imaging personally reviewed by me. Remainder the time spent in detailed review of previous records, lab data, imaging, and other medical provider documentation
Original Note:
Today's Communication/Plan
-
1U pRBC today per CTS
Continue diuresis
IABP stable
Plan for CT surgery tomorrow
NPO after midnight
Assessment / Plan
Assessment / Plan
Steph Luong is a 75 y/o F w/ PMHX CAD (s/p multiple PCI/stent/MATT with most recent being 11/14/24), GERD, HTN, HLD, IDDM, CKD Stage 4, celiac aa. dissection, chronic anemia, and ILD who presented with 1 week of substernal, daily chest pain
episodes that resolve with SL NTG with marked elevation and uptrend of cardiac biomarkers and EKG showing ischemic changes in the lateral leads. Patient was admitted to the IMU and started on heparin drip, NTG paste, and made NPO for invasive
coronary angiography. She is s/p left heart cath showing in-stent restenosis of distal LM into LAD/LCx and is scheduled for MIDCAB vs. traditional CABG with CTSurg on 05/13 following 5 day Plavix-washout.
05/12: Dr. Cline at bedside today, will do single dose of diuretic today and transfuse 1U pRBC to optimize for surgery.
1. NSTEMI
- Substernal anginal symptoms x 1 week alleviated by NTG;
- Troponin (ED): 1.65 --> 14.7 --> 23.2 --> 18; troponin trended to peak
- ECG (ED) showing anterolateral ST changes
- Started on heparin gtt
- Continue ASA/Statin/Zetia
- P2y12 testing shows adequate antiplatelet response to Plavix
- ECHO (05/08): EF 40-45%, inferior and inferolateral hypokinesis
- L Heart Cath (05/08): Severe rapid/accelerated in-stent restenosis of distal LM extending into ostial LAD and LCX after recently placed stents on November 14, 2024. Severely elevated LVEDP in setting of severe hypertension.
- IABP for temporary support; placed 05/10
- No symptoms since
- Assist ratio 1:2
- CXR today, stable position
- To be removed during procedure 05/13.
- CT Surgery recommendations appreciated: MIDCAB vs traditional CABG on Tuesday
- Continue Plavix washout; continue Heparin drip
2. Chronic HFpEF
- BNP 8100 (61763 at last admission)
- Euvolemia on exam
- Daily weights/I/Os
- ECHO: EF 40-45%
- Diuresis per CTS recommendations in setting of impending surgery
3. Acute Kidney Injury or CKD 4
- Creatinine on admission 2.9 (baseline 2.3-2.5); improvement to 2.6 this AM
- Follow BMP
- IVF hydration limited in setting of CHF
4. History of GERD
- Continue Pantoprazole
- Alternative considered, but adequate antiplatelet response to Plavix
5. HTN
- BPs are at goal; continue to monitor
6. HLD
- Statin restarted
7. Transaminitis (resolved)
- Statin restarted; continue to monitor
- Potential from decreased perfusion in setting of LV dysfcn 2/2 NSTEMI?
8. IDDM
- Continue Lantus and corrective
- NPO after MN
9. Chronic Anemia
- Daily CBC
10. Interstitial Lung Disease
- Stable
11. Mild asymptomatic Hyponatremia
- Repeat BMP in AM
Code: FULL
Diet: Cholesterol Lowering (NPO after MN 05/12)
DVT: Hep
Anticipated Discharge: 24 - 48 hours
Subjective/Interval History
-
Date of Service: May 12, 2025
No acute complaints.
Denies SOB, LE edema.
Denies any episodes of CP since IABP insertion (05/10).
Objective Data
-
Labs:
Laboratory Results
05/11/25 05/12/25 05/12/25
23:12 05:35 05:38
WBC 7.1
Hgb 8.8 L
Hct 29.1 L
Plt Count 131
APTT 106.9 H 105.2 H
Sodium 139
Potassium 4.2
Chloride 103
Carbon Dioxide 29
BUN 66 H
Creatinine 2.6 H
Glucose 131 H
Calcium 8.4
Vital Signs:
Vital Signs
Temp Pulse Resp BP Pulse Ox
98.6 F 56 20 132/50 99
05/12/25 07:00 05/12/25 07:25 05/12/25 07:25 05/12/25 07:00 05/12/25 07:25
I&O
05/11/25 05/12/25 05/13/25
06:59 06:59 06:59
Intake Total 615.0 / 623.8 439.3 / 439.3
Output Total 830 / 830 2064 / 2064
Balance -215.0 / -206.2 -1625.7 / -1625.7
Review of Systems
-
History Source: Patient
All other systems: Reviewed and negative
Physical Exam
-
General: No Apparent Distress, Comfortable and Conversant
HEENT: Normocephalic, Atraumatic and Moist Mucous Membranes
Respiratory: Clear to Auscultation and Non Labored Respirations
Cardiac: Regular Rhythm and S1/S2; Negative Murmur
GI: Soft
Musculoskeletal: No Clubbing, No Cyanosis, No Edema and Other (1-2+ dorsalis pedis pulses)
Skin: Warm
Neuro: Awake, Alert and Oriented
Psych: Calm
Data Reviewed
-
Diagnostic Radiology: Image personally visualized and interpreted, Report Reviewed by me and Discussed with Patient
Labs: Labs Reviewed by me and Discussed with Patient
--- NOTE | 2025-05-12 08:32 | W.PN.UPDATE ---
Update Note
Progress Note Update
Spoke with Dangelo (son) about plan of care.
[2025-05-12 08:37] LABS: Glucose - Point of Care 151 mg/dl (70-99)
[2025-05-12] MEDS: NOVOLOG FLEXPEN-LOW RESISTANCE 300 UNITS SC ×2 (08:41→13:47)
[2025-05-12] MEDS: LOW STRENGTH ASPIRIN 81 MG PO (08:51)
[2025-05-12] MEDS: PROTONIX 40 MG PO ×2 (08:51)
[2025-05-12] MEDS: LASIX 40 MG IV (08:51)
[2025-05-12] MEDS: SODIUM BICARBONATE 650 MG PO (08:51)
[2025-05-12] MEDS: ZETIA 10 MG PO (08:52)
[2025-05-12] MEDS: LIPITOR 80 MG PO (08:52)
[2025-05-12] MEDS: LANTUS 0.12 UNITS SC ×2 (08:59→22:21)
--- NOTE | 2025-05-12 09:00 | PTCARENOTE ---
Patient received from Night RN. AAOx3 w/o complaints of pain. RA. SpO2 98%. Lungs diminished. Sinus Rhythm on monitor. IABP - 1:2 Frequency, EKG Trigger - Left Femoral Artery CDI; + Dorsalis pedis and Posterior tibial pulses palpation - GOI
WNL Cortez catheter WNL - Yellow urine; Heparin gtt & Nitro gtt infusing. see worklist for detailed assessment.
--- NOTE | 2025-05-12 11:15 | W.PN.CARDCBS ---
Today's Communication / Plan
-
Continue supportive preoperative optimization with plan for CABG Tuesday
Updated son Dangelo over the phone
Impression / Plan
-
PCP: Dr. Carlton
Supervisor [employer]: Dr. VICKY Danielson
Impression:
Admitted with chest pain and NSTEMI 05/06/2025
NSTEMI, troponin up to 23 and trending
Admission for acute HF and elevated troponin 11/26/24 until 11/28/2024
Admission for NSTEMI, MV CAD with distal LM into circumflex and distal LM into proximal LAD PCI, acute HF and JESI 10/29/2024 until 11/16/2024
Abnormal LFTs, elevated AST
JESI on CKD 4
CAD
s/p 2.5 mm Xience OM1 PCI 02/12/2019
s/p Xience prox and overlapping previously placed distal OM-1 05/17/2019
s/p 2.5 mm Xience OM1 PCI 01/20/21
NSTEMI, s/p complex MATT distal LM into LCx/OM1 3.0 x 22 mm [employer]tronics Grapevine drug-eluting stent and from distal LM into proximal LAD 2.75 x 18 mm Medtronic Hernan drug-eluting stent 11/14/2024
PAD
s/p R common femoral endarterectomy w/ patch angioplasty and covered R iliac stent 01/2024
s/p right SFA angioplasty and stent 04/2020
h/o COVID 19 w/ residual parenchymal scarring
HTN
HLD
DM2
h/o Henoch-Sanna�nlein purpura
Glaucoma
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
h/o gastric bypass 2010
h/o angioedema on ZAY inhibitors
Aortic atherosclerosis
h/o orthostasis on Terazosin
h/o TIA 2016
Iron deficiency anemia
Echo 08/06/2020: EF 64%. Mild LVH. Normal RV. Mild MAC with mild MR. No AI or . Trace TR. PAP 29 mmHg
Echo 01/19/2021: EF 55-60%, stage I diastolic dysfunction, trace MR, trace TR, PAP 21 mmHg
Echo 10/29/2024: EF 40-45%, Stage I diastolic dysfunction, mild inferolateral and inferior hypokinesis
Echo 11/14/2024: EF 50 to 55%. No significant valvular disease. No pericardial effusion.
Echo 05/07/2025: Study pending
Cardiac cath 11/01/2024: Left main 60% distal. LAD 40% ostial. Circumflex: Hazy 80% ostial, stents in OM1 with moderate diffuse ISR, smaller daughter branch of OM1 with 70% stenosis. RCA 60 to 70% ostial stenosis
Cardiac cath 11/14/2024: Successful complex percutaneous coronary artery intervention with one 3.0 x 22 mm Medtronics Hernan drug-eluting stent from distal left main into left circumflex artery/OM1 and a second 2.75 x 18 mm Medtronic Grapevine drug-eluting
stent from distal left main into proximal LAD
Cardiac cath 05/08/25: Accelerated restenosis (ISR) with distal LM extending into ostial LAD (70-80%) and ostial LCx (95%), 60-70% stable ostial RCA stenosis.
Plan:
Medically complex 75-year-old female presenting with chest discomfort and non-STEMI with multivessel coronary artery disease status post distal left main into circumflex and proximal LAD PCI in October found to have accelerated restenosis with a distal
left main and stenting into the ostial LAD and ostial circumflex with stable 60-70% ostial RCA stenosis.
-Placement of intra aortic balloon pump 05/10/2025 currently 1:1
-Chest x-ray this morning with stable IABP position
-No further chest pain or pressure
-Continue IV heparin
-chest x-ray for balloon pump placement stable
-Monitor labs closely. Renal function stable, creatinine 2.6.
-Appreciate nephrology input
-Hemoglobin 8.8 with plan for transfusion per CT surgery.
-Diurese as per CT surgery
-Continue low-dose nitroglycerin ip
-Statin restarted
-Plan for CABG tomorrow or Tuesday following Plavix washout
- Discussed with CT surgery team and nursing
Patient came to the ER yesterday with chest pain and initial troponin was 1.65 and has now trended up to 23.2 prompting cardiology consultation for NSTEMI. Patient had a prolonged admission from 10/29/2024 until 11/16/2024 for NSTEMI and cardiac cath
showed MV CAD. Patient was initially seen in consultation by CT surgery and there is consideration for CABG, but this was ultimately deferred due to JESI on CKD and patient instead had high risk PCI with stenting of the distal left main into the
circumflex and distal left main into the proximal LAD on 11/14/2024. Patient was discharged home and then readmitted 2 weeks later with acute HF and CKD. Patient was then doing well and had last seen Dr. Danielson in the office on 01/31/2025. Patient
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
for her and she started that job last week. In the meantime patient called the office with chest pain on 04/23/2025 and was advised to go to the ER for evaluation given her complex CAD history, she ended up not going to the ER because she was
afraid she would miss her first day of work. Instead she was taking NTG SL several times a day for chest pain. Chest pain is described as being present on a daily basis and comes and goes throughout the day, it is a deep aching feeling and feels
similar to her previous LA pain. She finally came to the ER last night because she ran out of her NTG SL tablets and the pharmacy would not refill her prescription. She is distressed because she only had 2 days at her new job before she had to
come to the ER and is now missing work. Despite this she is pain-free on heparin gtt and Nitropaste. Initial troponin is 1.65 and now up to 23.2.
Progress Note - Supervisor [employer]
Subjective
Date of Service: May 12, 2025
Patient seen and examined and offers no complaints. Anxious for surgery tomorrow.
Objective
Labs:
05/12/25 05:38
05/12/25 05:38
Labs
Hgb 8.8 g/dL (12.0-16.0) L 05/12/25 05:38
Hct 29.1 % (37.0-47.0) L 05/12/25 05:38
Plt Count 131 10^3/uL (130-400) 05/12/25 05:38
PT 14.9 Sec (11.4-14.6) H 05/10/25 05:29
INR 1.12 05/10/25 05:29
APTT 105.2 Sec (23.4-35.0) H 05/12/25 05:35
Sodium 139 mmol/L (135-145) 05/12/25 05:38
Potassium 4.2 mmol/L (3.5-5.1) 05/12/25 05:38
BUN 66 mg/dl (7-17) H 05/12/25 05:38
Creatinine 2.6 mg/dL (0.6-1.0) H 05/12/25 05:38
Glucose 131 mg/dl (70-99) H 05/12/25 05:38
Vital Signs and I&O:
Vital Signs
Temp Pulse Resp BP Pulse Ox
98.4 F 72 12 132/80 95
05/12/25 10:00 05/12/25 10:25 05/12/25 10:25 05/12/25 10:00 05/12/25 10:00
Vital Signs
Temp Pulse Resp BP Pulse Ox
98.4 F 72 12 132/80 95
05/12/25 10:00 05/12/25 10:25 05/12/25 10:25 05/12/25 10:00 05/12/25 10:00
Intake & Output
05/10/25 05/11/25 05/12/25 05/13/25
06:59 06:59 06:59 06:59
Intake Total 336 / 336 615.0 / 623.8 439.3 / 453.8 39.0 / 39.0
Output Total 200 / 200 830 / 830 2065 / 2125 270 / 270
Balance 136 / 136 -215.0 / -206.2 -1625.7 / -1671.2 -231.0 / -231.0
Physical Exam
Physical Exam
GEN: No distress, awake, alert, oriented x3
HEENT: mmm
LUNGS: Exam limited with balloon pump. Decreased bases, fine crackles right base.
CV: Reg, S1/S2, no murmur
ABD: soft, BS+, NT/ND
EXT: No edema. IABP 1:1. Warm distal extremity. positive pulses
NEURO: Gross non-focal
--- NOTE | 2025-05-12 13:00 | PTCARENOTE ---
No change from previous assessment
[2025-05-12 13:45] LABS: Glucose - Point of Care 235 mg/dl (70-99)
[2025-05-12] MEDS: TOPROL XL 25 MG PO (13:47)
[2025-05-12] MEDS: APRESOLINE 5 MG IV (13:54)
--- NOTE | 2025-05-12 14:45 | W.PN.NEPH.PH ---
Today's Communication / Plan
-
cont lasix as needed
follow labs
Assessment/Plan
-
IMP:
NSTEMI
CHr CHFpEF
chronic ILD/fibrosis
JESI with CKD stage 4 (baseline Cr� 2.5)-follows Dr Cast
DM2
CAD hx of DC, hx of stents last in October 2024
HTN
DM
GERD
h/o ACEI angioedema
h/o Henoch-Schonlein purpura
Gastric bypass 2010
ALISHA, mild, with nocturnal hypoxemia
PAD, SFA stent Apr 2020
Plan:
A/w NSTEMI
mild Jesi with CKD4 -cr stable 2.6
LHC shows MVD, Severely elevated LVEDP in setting of severe hypertension.
plan CABG Tuesday,
she is s/p IABP on 05/10 with improved cp, also on nitro gtt
agree with IV lasix for volume per CT surg
chr met acidosis son po bciarb -lowered to daily
follow h/h , PRBC today
follow labs and wts
d/w pt in detail about high risk of JESI and dialysis with upcoming surg which she understands and would accept dialysis if needed
OK to place trialysis catheter during surg
Dr Enamorado reviewed with CT surg on 05/09
high risk encounter
-
-
Date of Service: May 12, 2025
CC / HPI / ROS
-
Chief Complaint:
Chest pain shortness of breath
History of Present Illness:
cr down to 2.6, BP stable
wt no change
IABP 05/10
wt is down
s/p PRBC for anemia hb 8.8
Review of Systems:
improved CP and SOB
no n/v
Labs
-
Labs:
WBC 7.1 10^3/uL (4.8-10.8) 05/12/25 05:38
RBC 3.47 10^6/uL (4.20-5.40) L 05/12/25 05:38
Hgb 8.8 g/dL (12.0-16.0) L 05/12/25 05:38
Hct 29.1 % (37.0-47.0) L 05/12/25 05:38
Plt Count 131 10^3/uL (130-400) 05/12/25 05:38
Sodium 139 mmol/L (135-145) 05/12/25 05:38
Potassium 4.2 mmol/L (3.5-5.1) 05/12/25 05:38
Chloride 103 mmol/L (98-107) 05/12/25 05:38
Carbon Dioxide 29 mmol/L (22-30) 05/12/25 05:38
BUN 66 mg/dl (7-17) H 05/12/25 05:38
Creatinine 2.6 mg/dL (0.6-1.0) H 05/12/25 05:38
eGFR 18.67 05/12/25 05:38
Glucose 131 mg/dl (70-99) H 05/12/25 05:38
Calcium 8.4 mg/dl (8.4-10.2) 05/12/25 05:38
Zyi-X-Qrykvffozvy Pept 8100 pg/ml 05/06/25 16:21
Albumin 3.4 g/dl (3.5-5.0) L 05/10/25 05:29
Physical Exam
-
Vital Signs:
Vital Signs
Temp Pulse Resp BP Pulse Ox
98.4 F 80 16 199/104 96
05/12/25 14:00 05/12/25 14:00 05/12/25 14:00 05/12/25 14:00 05/12/25 14:00
Cardiovascular:: Regular rate and rhythm
Respiratory:: Bilateral: Rales
Lung Excursion:: Normal
Abdomen:: Nontender and Soft
Bowel Sounds:: Normal
Extremity Edema:: None: Bilateral:
Cortez Catheter: No
--- NOTE | 2025-05-12 17:00 | PTCARENOTE ---
No change from previous assessment
[2025-05-12] MEDS: ROXICODONE 5 MG PO (19:25)
--- NOTE | 2025-05-12 20:00 | PTCARENOTE ---
assumed care of pt from previous RN. pt A&Ox4, bedrest w/ IABP in L fem art. IABP 1:2 ECG trigger. all lines leveled, zeroed, flushed. SR on tele-monitor. POX 95% on RA. abd s/n, +BS. enrique catheter draining clear, yellow colored urine. all
procedural sites CDI. PIV x2. see worklist for complete nursing assessment, interventions, gtt titrations, VS, and I&Os.
[2025-05-12] MEDS: LYRICA 150 MG PO (22:21)
[2025-05-12 22:22] LABS: Glucose - Point of Care 275 mg/dl (70-99)
[2025-05-13] VITALS (17 sets, daily range): BP systolic 135–183; BP diastolic 51–148; BMI 27.0
--- NOTE | 2025-05-13 | PTCARENOTE ---
assessment remains unchanged. VSS.
[2025-05-13] MEDS: APRESOLINE 5 MG IV ×2 (04:20→18:15)
[2025-05-13 04:31] LABS: APTT 94.0 Sec (23.4-35.0)
[2025-05-13 04:35] LABS: Blood Urea Nitrogen 65 mg/dl (7-17); Calcium 8.3 mg/dl (8.4-10.2); Carbon Dioxide 30 mmol/L (22-30); Chloride 98 mmol/L (98-107); Estimated Creatinine Clearance 16 ml/min; Glucose 193 mg/dl (70-99); Magnesium 1.8 mg/dl (1.6-2.3); Potassium 4.7 mmol/L (3.5-5.1); Sodium 132 mmol/L (135-145); eGFR 19.56
[2025-05-13 04:38] LABS: Hematocrit 29.3 % (37.0-47.0); Hemoglobin 9.1 g/dL (12.0-16.0); Mean Corp Hgb Conc. 31.1 g/dL (33.0-37.0); Mean Corpuscular Volume 83.0 fL (81.0-99.0); Platelet Count 114 10^3/uL (130-400); Red Cell Dist. Width 18.2 % (11.5-14.5)
--- NOTE | 2025-05-13 07:24 | W.PN.HOSP.TC ---
Addendum entered and electronically signed by Pamela Perry MD 05/13/25 16:06:
I saw and evaluated the patient independently. I reviewed and discussed the resident�s note and agree with findings and plan as documented by Dr. Pacheco.
GENERAL: well developed, well nourished, female in no apparent distress
HEENT: NC/AT
HEART: regular rate and rhythm, +S1, +S2
LUNGS : clear to auscultation bilaterally
ABDOM: soft, nontender, nondistended, + bowel sounds
EXT: no cyanosis, clubbing, or edema
NEUROLOGIC: grossly intact
: enrique cath with clear yellow urine
Intra aortic balloon pump in left groin
NSTEMI due to in-stent restenosis of distal LM into LAD/LCx--unclear why stent restenosed--? stent failure, nonresponder to asa/plavix? (Verify Now was done and did show evidence of platelet dysfunction)--apprec cards/CT surgery--for CABG as per CT
surgery--troponin peaked at 24--cont heparin drip/nitrodrip--cont statin/zetia but lipid panel WNL--ECHO with decreased EF of 40-45%--cont IABP
Chronic HFpEF - BNP 8100 (37935 at last admission)- Euvolemia on exam- Daily weights/I/Os- ECHO: EF 40-45%- Diuresis per CTS recommendations in setting of impending surgery
Acute Kidney Injury on CKD 4- Creatinine on admission 2.9 (baseline 2.3-2.5); improvement to 2.6 this AM--apprec renal- Follow BMP
History of GERD - Continue Pantoprazole
Essential HTN --cont meds as clinically able
HLD- Statin restarted
Transaminitis (resolved)- Statin restarted; continue to monitor--Potential from decreased perfusion in setting of LV dysfunction due to NSTEMI?
Type 2 DM insulin requiring- Continue Lantus and corrective- NPO after MN
Anemia of chronic disease--trend HGB
Interstitial Lung Disease- Stable
Mild asymptomatic Hyponatremia- Repeat BMP in AM
Code status-- FULL CODE
DVT proph-- Heparin drip
Original Note:
Today's Communication/Plan
-
IABP stable
Plan for CT surgery Tuesday or Tuesday
NPO after midnight
Diuresis per CT surgery
Assessment / Plan
Assessment / Plan
Steph Luong is a 75 y/o F w/ PMHX CAD (s/p multiple PCI/stent/MATT with most recent being 11/14/24), GERD, HTN, HLD, IDDM, CKD Stage 4, celiac aa. dissection, chronic anemia, and ILD who presented with 1 week of substernal, daily chest pain
episodes that resolve with SL NTG with marked elevation and uptrend of cardiac biomarkers and EKG showing ischemic changes in the lateral leads. Patient was admitted to the IMU and started on heparin drip, NTG paste, and made NPO for invasive
coronary angiography. She is s/p left heart cath showing in-stent restenosis of distal LM into LAD/LCx and is scheduled for MIDCAB vs. traditional CABG with CTSurg on 05/13 following 5 day Plavix-washout.
05/12: Dr. Cline at bedside today, will do single dose of diuretic today and transfuse 1U pRBC to optimize for surgery.
1. NSTEMI due to in-stent restonisis of distal LM into LAD/LCx
- Substernal anginal symptoms x 1 week alleviated by NTG;
- Troponin (ED): 1.65 --> 14.7 --> 23.2 --> 18; troponin trended to peak
- ECG (ED) showing anterolateral ST changes
- Started on heparin gtt
- Continue ASA/Statin/Zetia
- P2y12 testing shows adequate antiplatelet response to Plavix
- ECHO (05/07/2025): EF 40-45%, inferior and inferolateral hypokinesis
- L Heart Cath (05/08): Severe rapid/accelerated in-stent restenosis of distal LM extending into ostial LAD and LCX after recently placed stents on November 14, 2024. Severely elevated LVEDP in setting of severe hypertension.
- IABP for temporary support; placed 05/10
- No symptoms since
- Assist ratio 1:2
- CXR today, stable position
- To be removed during procedure 05/13.
- CT Surgery recommendations appreciated: MIDCAB vs traditional CABG on Tuesday or Tuesday
- Continue Plavix washout (not given since 05/09); continue Heparin drip
- on heparin and nitroglycerin drips
2. Chronic HFpEF
- BNP 8100 (90809 at last admission)
- Euvolemia on exam
- Daily weights/I/Os
- ECHO: EF 40-45%
- Diuresis per CTS recommendations in setting of impending surgery
3. Acute Kidney Injury or CKD 4
- Creatinine on admission 2.9 (baseline 2.3-2.5); improvement to 2.6 this AM
- Follow BMP
- IVF hydration limited in setting of CHF
4. History of GERD
- Continue Pantoprazole
- Alternative considered, but adequate antiplatelet response to Plavix
5. HTN
- BPs are at goal; continue to monitor
6. HLD
- Statin restarted
7. Transaminitis (resolved)
- Statin restarted; continue to monitor
- Potential from decreased perfusion in setting of LV dysfcn 2/2 NSTEMI?
8. IDDM
- Continue Lantus and corrective
- NPO after MN
9. Chronic Anemia
- Daily CBC
10. Interstitial Lung Disease
- Stable
11. Mild asymptomatic Hyponatremia
- Repeat BMP in AM
Code: FULL
Diet: Cholesterol Lowering (NPO after MN 05/12)
DVT: Hep
Anticipated Discharge: > 48 hours
Subjective/Interval History
-
Date of Service: May 13, 2025
procedure cancelled today
aortic baloon pump frdiay
feels well
Objective Data
-
Labs:
Laboratory Results
05/13/25 05/13/25
04:08 04:09
WBC 8.4
Hgb 9.1 L
Hct 29.3 L
Plt Count 114 L
APTT 94.0 H
Sodium 132 L
Potassium 4.7
Chloride 98
Carbon Dioxide 30
BUN 65 H
Creatinine 2.5 H
Glucose 193 H
Calcium 8.3 L
Cr 2.5 from 2.6
Vital Signs:
Vital Signs
Temp Pulse Resp BP Pulse Ox
99.7 F 75 18 158/79 93
05/13/25 06:00 05/13/25 07:00 05/13/25 07:00 05/13/25 06:05 05/13/25 06:15
telemetry: sinus rhythms, HR 70-80s
I&O
05/12/25 05/13/25 05/14/25
06:59 06:59 06:59
Intake Total 439.3 / 453.8 620.5 / 645.5
Output Total 2065 / 2125 2335 / 2400 65 / 65
Balance -1625.7 / -1671.2 -1714.5 / -1754.5 -40 / -40
has a enrique catheter
nitroglyucerin 120 ug/min
heparin 700 u/hr
Review of Systems
-
History Source: Patient
Constitutional: Reports No Symptoms
EENT: Reports No Symptoms Reported
Respiratory: Reports No Symptoms
Cardiac: Reports No Symptoms
Abdomen/GI: Reports No Symptoms
Genitourinary: Reports No Symptoms
Musculoskeletal: Reports No Symptoms
Neuro: Reports No Symptoms
Physical Exam
-
HEENT: Normocephalic
Respiratory: Clear to Auscultation
Cardiac: Other (no murmurs on my exam)
GI: Soft and Nontender
Musculoskeletal: No Edema
Neuro: AO x 3 and No Motor Deficits
Psych: Calm
--- NOTE | 2025-05-13 08:00 | PTCARENOTE ---
resumed care of pt from previous RN. Walking rounds completed. pt resting in bed a time of assessment. AAOx3. IABP in L fem. IABP 1:2 all lines leveled, zeroed, calibrated. SR on monitor. HR 70s. POX 95% on RA. lungs diminished but clear. +BS. enrique
draining clear, yellow urine. all procedural sites CDI. PIV x2. Hep gtt infusing at ordered rate. Nitro infusing to keep MAP 65-110. will continue to monitor.
[2025-05-13] MEDS: NOVOLOG FLEXPEN-LOW RESISTANCE SC (08:48)
[2025-05-13] MEDS: LASIX 40 MG IV (08:49)
[2025-05-13] MEDS: ZETIA 10 MG PO (08:52)
[2025-05-13] MEDS: LOW STRENGTH ASPIRIN 81 MG PO (08:52)
[2025-05-13] MEDS: SODIUM BICARBONATE 650 MG PO (08:53)
[2025-05-13] MEDS: TOPROL XL 25 MG PO (08:54)
[2025-05-13] MEDS: LIPITOR 80 MG PO (08:54)
--- NOTE | 2025-05-13 08:54 | W.PN.NEPH.PH ---
Today's Communication / Plan
-
GFR at baseline
IV diuresis continues
Assessment/Plan
-
IMP:
NSTEMI
CHr CHFpEF
chronic ILD/fibrosis
JESI with CKD stage 4 (baseline Cr� 2.5)-follows Dr Cast
DM2
CAD hx of ID, hx of stents last in October 2024
HTN
DM
GERD
h/o ACEI angioedema
h/o Henoch-Schonlein purpura
Gastric bypass 2010
ALISHA, mild, with nocturnal hypoxemia
PAD, SFA stent Apr 2020
Plan:
A/w NSTEMI
mild Jesi with CKD4 -cr stable 2.5
LHC shows MVD, Severely elevated LVEDP in setting of severe hypertension.
plan CABG now moved to tomorrow or Tuesday
she is s/p IABP on 05/10 with improved cp, also on nitro gtt
agree with IV lasix for volume per CT surmg IV daily
chr met acidosis son po bicarb -lowered to daily
follow h/h , PRBC today
follow labs and wts
d/w pt in detail about high risk of JESI and dialysis with upcoming surg which she understands and would accept dialysis if needed
OK to place trialysis catheter during surg
Dr Enamorado reviewed with CT surg on 05/09
high risk encounter
-
-
Date of Service: May 13, 2025
CC / HPI / ROS
-
Chief Complaint:
Chest pain shortness of breath
History of Present Illness:
cr down to 2.5, BP stable
wt no change
IABP 05/10
wt is down
s/p PRBC for anemia hb 8.8
Review of Systems:
improved CP and SOB
no n/v
Labs
-
Labs:
WBC 8.4 10^3/uL (4.8-10.8) 05/13/25 04:08
RBC 3.53 10^6/uL (4.20-5.40) L 05/13/25 04:08
Hgb 9.1 g/dL (12.0-16.0) L 05/13/25 04:08
Hct 29.3 % (37.0-47.0) L 05/13/25 04:08
Plt Count 114 10^3/uL (130-400) L 05/13/25 04:08
Sodium 132 mmol/L (135-145) L 05/13/25 04:08
Potassium 4.7 mmol/L (3.5-5.1) 05/13/25 04:08
Chloride 98 mmol/L (98-107) 05/13/25 04:08
Carbon Dioxide 30 mmol/L (22-30) 05/13/25 04:08
BUN 65 mg/dl (7-17) H 05/13/25 04:08
Creatinine 2.5 mg/dL (0.6-1.0) H 05/13/25 04:08
eGFR 19.56 05/13/25 04:08
Glucose 193 mg/dl (70-99) H 05/13/25 04:08
Calcium 8.3 mg/dl (8.4-10.2) L 05/13/25 04:08
Iyr-W-Bbbvcakathv Pept 8100 pg/ml 05/06/25 16:21
Albumin 3.4 g/dl (3.5-5.0) L 05/10/25 05:29
Physical Exam
-
Vital Signs:
Vital Signs
Temp Pulse Resp BP Pulse Ox
100.1 F 86 18 135/54 95
05/13/25 08:00 05/13/25 08:15 05/13/25 08:15 05/13/25 08:00 05/13/25 08:00
Cardiovascular:: Regular rate and rhythm
Respiratory:: Bilateral: Rales
Lung Excursion:: Normal
Abdomen:: Nontender and Soft
Bowel Sounds:: Normal
Extremity Edema:: None: Bilateral:
Cortez Catheter: No
[2025-05-13 09:01] LABS: Glucose - Point of Care 316 mg/dl (70-99)
[2025-05-13] MEDS: NOVOLOG FLEXPEN-LOW RESISTANCE 4 UNITS SC (09:01)
[2025-05-13] MEDS: LANTUS 0.12 UNITS SC ×2 (09:25→21:55)
[2025-05-13] MEDS: NITROGLYCERIN PREMIX 250 IV (09:25)
--- NOTE | 2025-05-13 10:43 | CM ---
Reviewed Chart. Met with Mrs. Luong and her sister to review discharge plans. She states her surgery for today has been postponed. She states her sister is here visitng from [place] She states prior to admission she resides with her spouse in a
three story home with two steps to enter. She states she has a full flight of steps to get to bedroom/full bathroom. She states she has a powder room on the first floor. She states prior to admission she was independent with ambulation and ads.
She states prior to admission she was independent with ambulation and adls. She states she used a walker in May when she broke her hip. She states she has a walker and nebulizer at home. She states she went to [facility]. at [place] for
rehab. after her hip surgery. She states she has a prescription plan. Will need to see her functional level post surgery to see if she will have any skilled care needs. Medical work-up in progress. The discharge plan is to return home with her
spouse and a home visit by the Transitional Care Nurse when medically stable.
--- NOTE | 2025-05-13 12:13 | W.PN.CARDCBS ---
Addendum entered and electronically signed by Dangelo Beavers MD 05/13/25 17:04:
I saw and examined the patient.
The FRUIT DUMPER or PA's note was reviewed and I agree with the note.
Comment: General: Well developed, well nourished in NAD.
Neck: Supple, no JVD, HJR, carotids +2 B/L, no bruits bilaterally.
Heart: Non displaced PMI, RRR, no murmurs, No S3, S4, no rubs.
Lungs: Scattered rhonchi
Extremities: No clubbing, cyanosis or edema bilaterally.
Neuro: Grossly nonfocal, awake, alert and oriented x3.
She remains pain-free on intra-aortic balloon. Surgery cancelled due to low-grade temps. For cabg on 05/14 am.
Original Note:
Today's Communication / Plan
-
Heparin and nitro gtt renewed
IABP running at 1:1
Plan is for CABG tomorrow
Impression / Plan
-
PCP: Dr. Carlton
Team Leader: Dr. VICKY Danielson
Impression:
Admitted with chest pain and NSTEMI 05/06/2025
NSTEMI, peak troponin 24.9
Admission for acute HF and elevated troponin 11/26/24 until 11/28/2024
Admission for NSTEMI, MV CAD with distal LM into circumflex and distal LM into proximal LAD PCI, acute HF and JESI 10/29/2024 until 11/16/2024
Abnormal LFTs, elevated AST
JESI on CKD 4
CAD
s/p 2.5 mm Xience OM1 PCI 02/12/2019
s/p Xience prox and overlapping previously placed distal OM-1 05/17/2019
s/p 2.5 mm Xience OM1 PCI 01/20/21
NSTEMI, s/p complex MATT distal LM into LCx/OM1 3.0 x 22 mm Medtronics Northfork drug-eluting stent and from distal LM into proximal LAD 2.75 x 18 mm Medtronic Hernan drug-eluting stent 11/14/2024
PAD
s/p R common femoral endarterectomy w/ patch angioplasty and covered R iliac stent 01/2024
s/p right SFA angioplasty and stent 04/2020
Accelerated in-stent restenosis of the distal LM into the ostial LAD and ostial circumflex with stable 60 to 70% ostial RCA lesion by cardiac cath 05/08/2025
h/o COVID 19 w/ residual parenchymal scarring
HTN
HLD
DM2
h/o Henoch-Sanna�nlein purpura
Glaucoma
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
h/o gastric bypass 2010
h/o angioedema on ZAY inhibitors
Aortic atherosclerosis
h/o orthostasis on Terazosin
h/o TIA 2016
Iron deficiency anemia
Echo 08/06/2020: EF 64%. Mild LVH. Normal RV. Mild MAC with mild MR. No AI or . Trace TR. PAP 29 mmHg
Echo 01/19/2021: EF 55-60%, stage I diastolic dysfunction, trace MR, trace TR, PAP 21 mmHg
Echo 10/29/2024: EF 40-45%, Stage I diastolic dysfunction, mild inferolateral and inferior hypokinesis
Echo 11/14/2024: EF 50 to 55%. No significant valvular disease. No pericardial effusion.
Echo 05/07/2025: EF 40 to 45%, inferior and inferolateral hypokinesis, normal RV size and function, mild MR, compared to echo from 11/14/2024 the EF is now reduced
Cardiac cath 11/01/2024: Left main 60% distal. LAD 40% ostial. Circumflex: Hazy 80% ostial, stents in OM1 with moderate diffuse ISR, smaller daughter branch of OM1 with 70% stenosis. RCA 60 to 70% ostial stenosis
Cardiac cath 11/14/2024: Successful complex percutaneous coronary artery intervention with one 3.0 x 22 mm Medtronics Hernan drug-eluting stent from distal left main into left circumflex artery/OM1 and a second 2.75 x 18 mm Medtronic Northfork drug-eluting
stent from distal left main into proximal LAD
Cardiac cath 05/08/25: Accelerated restenosis (ISR) with distal LM extending into ostial LAD (70-80%) and ostial LCx (95%), 60-70% stable ostial RCA stenosis.
Plan:
-Medically complex 75-year-old female presenting with chest discomfort and non-STEMI with multivessel coronary artery disease status post distal left main into circumflex and proximal LAD PCI in October found to have accelerated restenosis with a distal
left main and stenting into the ostial LAD and ostial circumflex with stable 60-70% ostial RCA stenosis by cardiac cath 05/08/2025.
-IABP remains in place at 1:1 since 05/10/2025 and stable placement by serial CXR on 05/13/2025
-Patient with fever in the last 24 hours Tmax 100.7 at noon on 05/13/2025
-Heparin gtt running, platelet count 114 on my review of labs 05/13/2025, renewed by me 05/13/2025
-Nitro gtt running at stable rate of 120 mcg/min, renewed by me 05/13/2025
-No recurrence of chest pain since admission
-Troponin peaked at 24.9. EF newly reduced at 40 to 45% by echo 05/07/2025 compared to echo 11/14/2024, both reports reviewed by me 05/13/2025
-Aspirin 81 mg daily has been
-Outpatient dose of Plavix 75 mg daily is on hold in anticipation of surgery, but will likely be restarted postop
-Cre stable at 2.5 and patient was delighted to see her outpatient spray painter on 05/13/2025
-Lasix 40 mg IV daily as ordered, patient was taking Lasix 40 mg PO daily prior to admission
-Patient was given 1 unit of PRBCs on 05/12/2025 and Hgb is stable at 9.1
-Reviewed with CT surgery team on 05/13/2025 and plan is for CABG on 05/14/2025
Patient came to the ER yesterday with chest pain and initial troponin was 1.65 and has now trended up to 23.2 prompting cardiology consultation for NSTEMI. Patient had a prolonged admission from 10/29/2024 until 11/16/2024 for NSTEMI and cardiac cath
showed MV CAD. Patient was initially seen in consultation by CT surgery and there is consideration for CABG, but this was ultimately deferred due to JESI on CKD and patient instead had high risk PCI with stenting of the distal left main into the
circumflex and distal left main into the proximal LAD on 11/14/2024. Patient was discharged home and then readmitted 2 weeks later with acute HF and CKD. Patient was then doing well and had last seen Dr. Danielson in the office on 01/31/2025. Patient
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
for her and she started that job last week. In the meantime patient called the office with chest pain on 04/23/2025 and was advised to go to the ER for evaluation given her complex CAD history, she ended up not going to the ER because she was
afraid she would miss her first day of work. Instead she was taking NTG SL several times a day for chest pain. Chest pain is described as being present on a daily basis and comes and goes throughout the day, it is a deep aching feeling and feels
similar to her previous [place] pain. She finally came to the ER last night because she ran out of her NTG SL tablets and the pharmacy would not refill her prescription. She is distressed because she only had 2 days at her new job before she had to
come to the ER and is now missing work. Despite this she is pain-free on heparin gtt and Nitropaste. Initial troponin is 1.65 and now up to 23.2.
Progress Note - Team Leader
Subjective
Date of Service: May 13, 2025
Feels well, denies chest pain with IABP, heparin gtt and nitro gtt running
Objective
Labs:
11/17/25 04:08
05/13/25 04:08
Labs
Hgb 9.1 g/dL (12.0-16.0) L 05/13/25 04:08
Hct 29.3 % (37.0-47.0) L 05/13/25 04:08
Plt Count 114 10^3/uL (130-400) L 05/13/25 04:08
PT 14.9 Sec (11.4-14.6) H 05/10/25 05:29
INR 1.12 05/10/25 05:29
APTT 94.0 Sec (23.4-35.0) H 05/13/25 04:09
Sodium 132 mmol/L (135-145) L 05/13/25 04:08
Potassium 4.7 mmol/L (3.5-5.1) 05/13/25 04:08
BUN 65 mg/dl (7-17) H 05/13/25 04:08
Creatinine 2.5 mg/dL (0.6-1.0) H 05/13/25 04:08
Glucose 193 mg/dl (70-99) H 05/13/25 04:08
Vital Signs and I&O:
Vital Signs
Temp Pulse Resp BP Pulse Ox
100.6 F H 71 19 150/85 96
05/13/25 11:00 05/13/25 12:00 05/13/25 12:00 05/13/25 12:00 05/13/25 10:00
Vital Signs
Temp Pulse Resp BP Pulse Ox
100.6 F H 71 19 150/85 96
05/13/25 11:00 05/13/25 12:00 05/13/25 12:00 05/13/25 12:00 05/13/25 10:00
Intake & Output
05/11/25 05/12/25 05/13/25 05/14/25
06:59 06:59 06:59 06:59
Intake Total 615.0 / 623.8 439.3 / 453.8 620.5 / 645.5 125 / 125
Output Total 830 / 830 2065 / 2125 2335 / 2400 475 / 475
Balance -215.0 / -206.2 -1625.7 / -1671.2 -1714.5 / -1754.5 -350 / -350
Physical Exam
Physical Exam
GEN: AAOx3
HEENT: MMM, wearing glasses
LUNGS: RA
CV: SR on tele.
ABD: ND
EXT: No edema B/L LE
NEURO: Gross non-focal
SKIN: No rash
[2025-05-13] MEDS: NOVOLOG FLEXPEN-LOW RESISTANCE 2 UNITS SC (12:42)
[2025-05-13 12:43] LABS: Glucose - Point of Care 233 mg/dl (70-99)
--- NOTE | 2025-05-13 16:00 | PTCARENOTE ---
No change from previous assessment
[2025-05-13] MEDS: HEPARIN 25000 UNITS/250 ML IV (16:02)
--- NOTE | 2025-05-13 17:43 | W.PN.UPDATE ---
Update Note
Progress Note Update
TEG result: 28% platelet inhibition. Dr. Cline notified by perfusion. Proceeding with OR 05/14. DC IV Heparin registered occupational therapist to OR.
[2025-05-13 18:06] LABS: Glucose - Point of Care 165 mg/dl (70-99)
[2025-05-13] MEDS: NOVOLOG FLEXPEN-LOW RESISTANCE 1 UNITS SC (18:09)
--- NOTE | 2025-05-13 18:52 | W.PN.UPDATE ---
Update Note
Progress Note Update
Update note: blood cultures had been ordered, but CT surgery had requested to defer. Hence the order for blood cultures has been cancelled.
--- NOTE | 2025-05-13 20:00 | PTCARENOTE ---
assumed care of pt from previous RN. pt A&Ox4, bedrest w/ IABP. IABP 1:2 ECG trigger. SR on tele-monitor. POX 93% on RA. abd s/n, +BS. enrique catheter draining clear, yellow colored urine. all procedural sites stable, CDI. PIV x2 intact. see worklist
for complete nursing assessment, interventions, gtt titrations, VS, and I&Os.
--- NOTE | 2025-05-13 20:23 | W.CVOR.SURPR ---
CVOR Surgeon Immed Pre Op
-
I have examined this patient prior to performance of the scheduled procedure.
The patient's condition is unchanged from the time of the dictated/written History and
Physical and the patient is able to undergo the scheduled procedure.
High risk cabg
--- NOTE | 2025-05-13 20:30 | PTCARENOTE ---
pt clipped and prepped for CVOR. washed w/ CHG soap. sheets and gown changed. plan of care discussed w/ pt, pt in agreement.
[2025-05-13 21:56] LABS: Glucose - Point of Care 342 mg/dl (70-99)
[2025-05-13] MEDS: LYRICA 150 MG PO (21:56)
[2025-05-13] MEDS: TYLENOL 650 MG PO (23:54)
[2025-05-14] VITALS (11 sets, daily range): BP systolic 104–148; BP diastolic 39–96; BMI 26.5
--- NOTE | 2025-05-14 | PTCARENOTE ---
assessment remains unchanged.
[2025-05-14 02:28] LABS: Urine Character Clear (Clear)
[2025-05-14 03:01] LABS: Urine White Cell 26-30 /HPF (0-5)
[2025-05-14 04:47] LABS: APTT 90.3 Sec (23.4-35.0); Hematocrit 30.6 % (37.0-47.0); Hemoglobin 9.6 g/dL (12.0-16.0); Mean Corp Hgb Conc. 31.4 g/dL (33.0-37.0); Mean Corpuscular Volume 82.5 fL (81.0-99.0); Platelet Count 107 10^3/uL (130-400); Red Cell Dist. Width 18.3 % (11.5-14.5)
[2025-05-14 05:07] LABS: Blood Urea Nitrogen 68 mg/dl (7-17); Calcium 8.5 mg/dl (8.4-10.2); Carbon Dioxide 30 mmol/L (22-30); Chloride 100 mmol/L (98-107); Estimated Creatinine Clearance 15 ml/min; Glucose 134 mg/dl (70-99); Magnesium 2.0 mg/dl (1.6-2.3); Potassium 4.4 mmol/L (3.5-5.1); Sodium 135 mmol/L (135-145); eGFR 17.08
[2025-05-14] MEDS: PROTONIX 40 MG PO (05:43)
[2025-05-14] MEDS: BACTROBAN 2% OINTMENT 1 APPLIC NASAL ×2 (05:43→20:28)
[2025-05-14] MEDS: MAGNESIUM OXIDE 400 MG PO (05:43)
[2025-05-14] MEDS: LOPRESSOR 25 MG PO (05:43)
--- NOTE | 2025-05-14 05:45 | PTCARENOTE ---
2nd CHG wash completed. pre-op meds given. pre-op education provided. joint special operations to CVOR.
--- NOTE | 2025-05-14 06:51 | W.PN.UPDATE ---
Update Note
Progress Note Update
Discussed her case at [facility] High Risk Conference, group consensus amongst the CT surgeons is to move forward with high risk CABG as her best option and be ready for HD/CRRT in the perioperative period.
[2025-05-14 07:53] LABS: ACT+ - POC 230 Seconds (82-134)
--- NOTE | 2025-05-14 08:02 | CON.INTV ---
Consultation
Consultation Request
Date/Time Consultation Requested: 05/14/2025
Date/Time Consultation Performed: 05/14/2025
Medical History
-
History of Present Illness:
Patient is a 75-year-old female with known history of coronary artery disease status post PCI in October 2024 who presented to the emergency room with persistent chest pain. Patient had episode of diaphoresis as well. Patient diagnosed to have non-ST
elevation DE. Patient was evaluated by cardiology service and was taken to Injection Operator where he was noted to have in-stent restenosis. Subsequently intra-aortic balloon pump was placed and cardiothoracic surgery was consulted for further input.
Coronary artery bypass graft was recommended and patient was taken to the OR on 05/14. Wiring Technician consultation was requested for further management in CVICU.
Past Medical History: Reports Other
Additional Past Medical History:
Hypertension
DM-II
CKD IV
ASCVD (CAD, PAD)
Chronic HFpEF
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
Past Surgical History: Reports Other
Additional Past Surgical History:
PTCA with Stents (11/14/24)
Diagnostic Cardiac Cath (11/01/24)
Gastric Bypass
D&C
T&A
PTCA / Stents
PAD Stents / Endarterectomies
Left ERIC
Social History
Tobacco: Non-smoker
Alcohol: Occasional (Rarely.)
Drug: None
Family History
Family History: Not pertinent
Allergies / Home Medications
Allergies
Allergy/AdvReac Type Severity Reaction Status Date / Time
MARCELL Inhibitors (Marcell Allergy Swelling/AN Verified 12/20/24 23:31
Inhibitors) GIOEDEMA
chamomile flower Allergy Rash Verified 12/20/24 23:31
Sulfa (Sulfonamide Allergy Rash Verified 12/20/24 23:31
Antibiotics)
sulfite Allergy VASCULITIS Verified 12/20/24 23:31
artificial sweetners Allergy Unknown Uncoded 12/20/24 23:31
Home Medications
�Medication �Instructions �Recorded �Confirmed �Last Taken �Type
clopidogrel 75 mg tablet (Plavix) 75 mg PO DAILY Blood Clot 06/19/24 05/06/25 05/06/25 History
Prevention/Tx
atorvastatin 80 mg tablet 80 mg PO QPM High Cholesterol 10/29/24 05/06/25 05/05/25 History
cholecalciferol (vitamin D3) 50 50 mcg PO DAILY Supplement 10/29/24 05/06/25 05/06/25 History
mcg (2,000 unit) tablet (Vitamin
D3)
coQ10 (ubiquinol) 200 mg capsule 400 mg PO DAILY High Cholesterol 10/29/24 05/06/25 05/06/25 History
pantoprazole 40 mg tablet,delayed 40 mg PO DAILY Gastrointestinal 10/29/24 05/06/25 05/06/25 History
release (Protonix) Issue
pregabalin 150 mg capsule 300 mg PO HS diabetic neuropathy 10/29/24 05/06/25 05/05/25 History
sodium bicarbonate 650 mg tablet 650 mg PO BID Electrolyte Repletion 10/29/24 05/06/25 05/06/25 History
tramadol 50 mg tablet 50 mg PO Q6HPRN PRN moderate pains 10/29/24 05/06/25 3 Days Ago History
~05/03/25
insulin aspart U-100 100 unit/mL 5 unit (0.05 mL) SC AC Diabetes #5 11/16/24 05/06/25 05/06/25 Rx
(3 mL) subcutaneous pen (Novolog ea
FlexPen U-100 Insulin aspart)
aspirin 81 mg chewable tablet 81 mg PO DAILY Blood Clot 05/06/25 05/06/25 05/06/25 History
Prevention/Tx 324 mg
calcitriol 0.25 mcg capsule 0.25 mcg PO Q48H Supplement 05/06/25 05/06/25 Unknown History
ezetimibe 10 mg tablet 10 mg PO DAILY High Cholesterol 05/06/25 05/06/25 05/06/25 History
furosemide 40 mg tablet (Lasix) 40 mg PO DAILY Fluid 05/06/25 05/06/25 05/06/25 History
Retention/Swelling
insulin glargine 100 unit/mL (3 24 unit SC BID Diabetes 05/06/25 05/06/25 05/06/25 History
mL) subcutaneous pen (Basaglar
KwikPen U-100 Insulin)
ipratropium 0.5 mg-albuterol 3 mg 3 ml inhalation R Q6HPRN PRN sob 05/06/25 05/06/25 Unknown History
(2.5 mg base)/3 mL nebulization
soln
metoprolol succinate 25 mg 25 mg PO DAILY Heart 05/06/25 05/06/25 05/06/25 History
tablet,extended release 24 hr Disease/Condition
Review of Systems
-
Unable to Obtain full review of systems at this time due to: Patient Intubation
Vitals / Labs / Diagnostic Testing
Vital Signs
Temp Pulse Resp BP Pulse Ox
98.8 F 63 13 135/53 96
05/14/25 06:00 05/14/25 06:00 05/14/25 06:00 05/14/25 06:00 05/14/25 04:30
Lab Data
05/14/25 04:24
05/14/25 04:24
Laboratory Results
05/14/25
04:24
APTT 90.3 H
Diagnostic Testing:
Physical Exam
-
HEENT: Normocephalic
Cardiovascular: S1/S2
Respiratory: Clear and Non-Labored Respirations
GI: Soft and Non Distended
Neurology: Awake and Other (Sedated)
Skin: Warm
General: Comfortable
Assessment
-
75-year-old female with history of coronary artery disease, acute NSTEMI due to in-stent restenosis, s/p CABG, left atrial appendage exclusion, POD #0
Titrate off pressors per protocol, currently dobutamine infusing at 3, Cardene at 5. MAP of 70, CVP of 9.
ECHO reviewed with mildly reduced ejection fraction
PA catheter readings reviewed, , mean of 22
Management of chest tubes per primary service
Intubated/sedated, initiate SAT when able
Pain control
RASS goal of 0 to -1
Intubated for procedure, SBT trial when patient able to spontaneously breath
Current vent settings: Volume AC 500/14/40%/5
AB.30 936/131
CXR with no obvious opacities/infiltrates, low lung volumes, ETT in good position, lines/tubes in place
Extubate per protocol
Maintain supplement oxygen as needed
Known history of mild chronic fibrotic lung disease felt to be post-COVID, stable
Prior PFTs reviewed
Can add nebulizers if needed
Aspiration precautions
Encouraged incentive spirometry, OOB/ambulation/early mobility
Advance diet as tolerated following extubation
GI prophylaxis: Protonix
Monitor critical I/O's
Cortez/chest tube output
Hb/platelets postoperatively, mild drift
Trend CBC for now
Can transfuse if indicated for Hb <7, plt <50 in surgical patients
DVT prophylaxis including SCDs
Insulin protocol initiated and ongoing
Transition to SQ/off as indicated per team
Other medical diagnoses:
- Chronic pulmonary fibrosis with restrictive lung disease, felt to be post COVID sequela in 2019. Follows up with Dr. Fannie Apple at [facility] pulmonary clinic. Stable.
- CKD-IV. Currently oligoanuric, left neck trialysis catheter placed, anticipate CRRT initiation, nephrology service on case. Keep MAP above 65. Cardiac index noted to be low.
- CAD, s/p PCI 10/2024 with in-stent restenosis
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
- GERD
- HTN, HLD
- DM
- History of glaucoma
- TIA
- Peripheral vascular disease, SFA balloon angioplasty history
- History of gastric bypass surgery
- Obstructive sleep apnea
- History of HSP/IgA vasculitis
Critical Care time ICU mins -62- The patient is admitted for acute critical illness for the treatment of vital organ failure and/or prevention of further life-threatening conditions. Total care includes time spent in review of history, physical
exam, medications, hemodynamic/ventilator parameters, laboratory data, imaging and discussion with house staff, pharmacy, respiratory therapy, heat curer, and nursing
Data:
IABP placement 04/2025: Via left common femoral artery access
[facility] 04/2025: 1. Severe rapid/accelerated in-stent restenosis of distal LM extending into ostial LAD and LCX after recently placed stents on November 14, 2024.
2. Severely elevated LVEDP in setting of severe hypertension.
ECHO 04/2025: 1. Left ventricular systolic function is mildly reduced; LVEF 40-45% by visual estimate. Inferior and inferolateral hypokinesis.
2. Right ventricular size and systolic function are within normal limits.
3. Mild mitral valve regurgitation.
4. Compared to prior study dated 11/14/2024 which was directly reviewed, left ventricular systolic function appears less vigorous, previously LVEF estimated at 53%.
CT Chest 04/2025: Widespread bilateral prominent interstitial markings likely representing chronic interstitial fibrosis.
Small nonspecific mediastinal lymph nodes.
Cardiomegaly with extensive coronary artery calcifications.
Small hiatal hernia.
[facility] 10/2024: 1. Successful complex percutaneous coronary artery intervention with one 3.0 x 22 mm Medtronics Herriman drug-eluting stent from distal left main into left circumflex artery/OM1 and a second 2.75 x 18 mm Medtronic Hernan drug-eluting stent
from distal left main into proximal LAD, postdilated using IVUS guidance with a 2.75 x 15 mm NC balloon at 16 rock distally in the LAD and 3.5 x 8 mm NC balloon at 20 rock in the left main and a 3.0 x 15 mm NC balloon at 18 rock in OM1 with an
excellent angiographic result.
Spirometry 04/2025: Spirometry not suggestive of any obstructive lung disease. Pulmonary Function Testing suggestive of mild restrictive lung disease with FEV1 was 85% of predicted and TLC reduced at 60% of predicted. Severely reduced diffusion
capacity noted. No significant bronchodilator response noted.
--- NOTE | 2025-05-14 08:36 | W.PN.UPDATE ---
Update Note
Progress Note Update
Update note: Patient is now transferred to CT surgery, medicine team will sign off.
--- NOTE | 2025-05-14 08:57 | CM ---
Reviewed chart. Mrs. Luong is in the operating room. Her sister is here visiting from .. Prior to admission she resides with her spouse in a three story home with two steps to enter. She has a full flight of steps to get to bedroom/full
bathroom. She has a powder room on the first floor. Prior to admission she was independent with ambulation and ads. Prior to admission she was independent with ambulation and adls. She used a walker in May when she broke her hip. She has a
walker and nebulizer at home. She went to [facility]. at [place] for rehab. after her hip surgery. She has a prescription plan. Will need to see her functional level post surgery to see if she will have any skilled care needs. Medical work-up
in progress. The discharge plan is to return home with her spouse and a home visit by the Transitional Care Nurse when medically stable.
[2025-05-14 10:03] LABS: ACT+ - POC 756 Seconds (82-134)
[2025-05-14 10:34] LABS: B.E. - POC 4.6 mmol/L; Glucose - POC 92 mg/dl (70-99); HCO3 - POC 27 mmol/L (21-28); Hematocrit - POC 24 % PCV (37-47); Hemodilution- POC Yes; Hemoglobin Calculated - POC 8.1; Ionized Calcium - POC 0.90 mmol/L (1.15-1.33); Lactate - POC 1.10 mmol/L (0.36-0.75); O2 Saturation %Calculated-POC 100.0 % (94-98); PCO2 - POC 30 mmHg (35-48); PO2 - POC 432 mmHg (83-108); POC Comment CPB; Potassium - POC 5.4 mmol/L (3.5-5.1); Sodium - POC 136 mmol/L (136-145); Specimen Type - POC Arterial; pH - POC 7.56 (7.35-7.45)
[2025-05-14 10:36] LABS: ACT+ - POC > 1003 Seconds (82-134)
[2025-05-14 10:37] LABS: B.E. - POC 1.0 mmol/L; Glucose - POC 95 mg/dl (70-99); HCO3 - POC 25 mmol/L (21-28); Hematocrit - POC 26 % PCV (37-47); Hemodilution- POC No; Hemoglobin Calculated - POC 8.9; Ionized Calcium - POC 1.15 mmol/L (1.15-1.33); Lactate - POC < 0.30 mmol/L (0.36-0.75); O2 Saturation %Calculated-POC 99.9 % (94-98); PCO2 - POC 36 mmHg (35-48); PO2 - POC 300 mmHg (83-108); POC Comment PRE; Potassium - POC 4.1 mmol/L (3.5-5.1); Sodium - POC 135 mmol/L (136-145); Specimen Type - POC Arterial; pH - POC 7.45 (7.35-7.45)
[2025-05-14 11:02] LABS: B.E. - POC 1.2 mmol/L; Glucose - POC 93 mg/dl (70-99); HCO3 - POC 24 mmol/L (21-28); Hematocrit - POC 26 % PCV (37-47); Hemodilution- POC Yes; Hemoglobin Calculated - POC 8.7; Ionized Calcium - POC 0.92 mmol/L (1.15-1.33); Lactate - POC 0.99 mmol/L (0.36-0.75); O2 Saturation %Calculated-POC 99.9 % (94-98); PCO2 - POC 30 mmHg (35-48); PO2 - POC 260 mmHg (83-108); POC Comment CPB; Potassium - POC 5.9 mmol/L (3.5-5.1); Sodium - POC 135 mmol/L (136-145); Specimen Type - POC Arterial; pH - POC 7.51 (7.35-7.45)
[2025-05-14 11:15] LABS: B.E. - POC -0.1 mmol/L; Glucose - POC 101 mg/dl (70-99); HCO3 - POC 23 mmol/L (21-28); Hematocrit - POC 26 % PCV (37-47); Hemodilution- POC Yes; Hemoglobin Calculated - POC 8.9; Ionized Calcium - POC 0.92 mmol/L (1.15-1.33); Lactate - POC 1.11 mmol/L (0.36-0.75); O2 Saturation %Calculated-POC 99.9 % (94-98); PCO2 - POC 33 mmHg (35-48); PO2 - POC 296 mmHg (83-108); POC Comment WARM; Potassium - POC 5.6 mmol/L (3.5-5.1); Sodium - POC 139 mmol/L (136-145); Specimen Type - POC Arterial; pH - POC 7.46 (7.35-7.45)
[2025-05-14] MEDS: ANCEF 10 IV ×2 (11:40→13:48)
[2025-05-14 11:43] LABS: B.E. - POC -1.3 mmol/L; Glucose - POC 98 mg/dl (70-99); HCO3 - POC 23 mmol/L (21-28); Hematocrit - POC 25 % PCV (37-47); Hemodilution- POC Yes; Hemoglobin Calculated - POC 8.5; Ionized Calcium - POC 0.92 mmol/L (1.15-1.33); Lactate - POC 1.26 mmol/L (0.36-0.75); O2 Saturation %Calculated-POC 99.9 % (94-98); PCO2 - POC 38 mmHg (35-48); PO2 - POC 287 mmHg (83-108); POC Comment WARM; Potassium - POC 5.5 mmol/L (3.5-5.1); Sodium - POC 139 mmol/L (136-145); Specimen Type - POC Arterial; pH - POC 7.40 (7.35-7.45)
[2025-05-14 11:47] LABS: ACT+ - POC 134 Seconds (82-134)
--- NOTE | 2025-05-14 12:33 | W.PN.CT.SURG ---
CT Surgery Operative Note
-
CARDIAC SURGERY OPERATIVE REPORT
Preoperative Diagnosis: Multivessel Coronary Artery Disease with early in-stent restenosis and NSTEMI
Postoperative Diagnosis: Same
Procedure(s) Performed:
1. Standard Sternotomy with Aortic and Right Atrial Cannulation
2. Internal Mammary Artery Harvesting, Left
3. Coronary artery bypass grafting x 4 (In situ KESSLER to LAD, Ao to RSVG to OM to OM, Ao to RSVG to mid to distal RCA)
4. Endoscopic vein harvesting of right and left lower extremities
5. Transesophageal echocardiography
6. Placement of Temporary Ventricular Pacing Wires
7. Left atrial appendage exclusion
Date of Surgery: 05/14/2025
Comorbidities:
1. NSTEMI
2. Recent PCI with early in-stent restenosis of the left main
3. Hypertension
4. PAD hyperlipidemia
5. CKD stage IV
6. Acute on chronic ischemic cardiomyopathy with EF of 40% with regional wall motion abnormalities
7. Type 2 diabetes
8. GERD status post gastric bypass
9. Interstitial pulmonary disease
Attending Surgeon: Edgardo Cline MD, MS
Assistants: Edgardo Solares PA-C (present and necessary to nurse first aid, retraction, suction, exposure, suture management, and wound closure under my direction), Rosemary Dorsey PA-C (Endo vein harvest), Marilyn Lincoln PA-C (endo vein harvest)
Anesthesiology: Jesús Alexander MD and Josef Rowland CRNA
Scrub and Circulating RNs: Dustin Charles, ACACIA, Emeka Burks RN
Environmental Services Aide: Zaria Driscoll CCP
Anesthesia: GETA
EBL: per perfusion records
Products: 2 PRBCS + CellSaver
CPB Time: 88 minutes
Aortic Cross Clamp Time: 73 minutes
Indication(s) for Procedures: This is a 75-year-old female who recently underwent a complex PCI to the left main back in October 2024. She did well from that procedure but then presented to the hospital with an NSTEMI was found to have early in-stent
restenosis of the left main areas with a very tight lesion in the proximal circumflex. Given her presentation, multidisciplinary team discussion across the system was to move forward with high risk CABG surgery in spite of her poor renal function
and moderate pulmonary disease. Nephrology was preemptively consulted and the patient did say she would except temporary dialysis if necessary.
Conduit(s) Quality:
KESSLER -good, smaller size conduit overall but excellent flow, mean flow was 10 cc a minute with a PI of 3.9
RSVG -the first segment of vein graft was usable but also small I put this to the least important target which was the RPDA, mean flow in this graft was 10 cc minute with a PI of 3.4
The second segment of vein that was harvested was much better quality this was placed to the OM x 2, the mean flow here was 40 cc a minute with a PI of 3.1
Target(s) Quality:
RCA/PDA -good quality target, calcified but overall had decent flow
OM -the OM was a bifurcating vessel and heavily calcified. I initially had opened a branch that would not probe back towards the main vessel. I therefore found the main LM and also opened that and performed a sequential graft here to both of the
branches
LAD -good quality target, excellent visual flow in the LAD territory upon release of the bulldog clamp
Findings: Her left ventricular ejection fraction preoperatively was approximately 40% with regional wall motion abnormalities towards the lateral inferior wall. Following surgery here EF essentially normalized and regional wall motion normalized as
well. The KESSLER was harvested in a skeletonized fashion. Following bypass grafting, test dose cardioplegia was given down each distal and confirmed patency and hemostasis. Each distal was probed both proximally and distally to confirm disease and
patency, respectively. Her left atrial appendage was verified to be free of any thrombus or debris preoperatively and found to be totally occlusive postoperatively. Her intra-aortic balloon pump was also removed at the end of the case and we held
pressure.
Description of Procedure: The patient was taken to the operating room. Their identity and procedure to be performed were verified and they were positioned supine on the operating table. Induction via general anesthesia with endotracheal intubation
was performed and central venous access and arterial monitoring were inserted. A preoperative transesophageal echocardiogram was performed to assess cardiac function and valvular function. The patient was then prepped and draped from chin to feet in
a sterile fashion. A preoperative time-out was performed with all members of the team present. A midline chest incision was performed along with median sternotomy. Simultaneous endoscopic access of the right and left lower extremity for saphenous
vein harvest was obtained along with administration of an initial 5,000 units of IV heparin. A RulTract sternal retractor was positioned to exposure the left internal mammary bed. The mammary was harvested and found to have good flow. A bulldog
clamp was applied to the distal end of the mammary after dividing it. It was wrapped in a papaverine soaked RayTec and replaced back into the left hemithorax. The RulTract was exchanged for a median sternal retractor. The innominate vein was
isolated. Full heparinization was given (a total of 45,000 units). We created a pericardial well. The aortic cannulation site was chosen where it was soft, pliable, and free of calcium. At this point the intra-aortic balloon pump was turned off and
cannulation was performed with an arterial cannula in the ascending aorta and a triple-stage venous cannula through the right atrial appendage. The arterial cannula line had an appropriate bounce and correlating pressures with test dosing. Next, a
root vent/antegrade cannula was inserted into the ascending aorta. The ACT was confirmed to be over 400 and retrograde autologous priming was performed before commencing cardiopulmonary bypass. The pulmonary artery was away from the aorta
to facilitate a clamp site. The aortic cross-clamp was placed after decreasing the flow on the bypass and mean arterial pressure. A total of 1.2L initial dose of antegrade Del-Nido cardioplegia solution was given and planned for re-dosing every 75
minutes as necessary. There was rapid electro-mechanical arrest of the heart at 300 cc of cardioplegia. The left ventricle was observed for distention on echocardiogram and manual palpation. Cold slush was placed into a sponge and topically on the
RV while we systemically cooled to 34 degrees centigrade. Once the heart was fully arrested rotated medially and the left atrial appendage was ligated.
I positioned the heart to expose the distal right coronary. A deering blade was used to expose the coronary and perform the arteriotomy. Coronary Isabel scissors were used to enlarge the incision. The saphenous vein was trimmed and beveled to an
appropriate size. The distal anastomosis was performed using 7-0 prolene in an end-to-side fashion. Antegrade cardioplegia was administered into the graft. Appropriate hemostasis and flow were confirmed. The graft was measured for length to the
aorta and cut. A suitable site on the obtuse marginal was chosen. End-to-side open the branch leading off of the main OM and I was unable to probe back here and so I decision was made to perform a sequential graft to the main OM as well as the
branch. We dissected and prepared the distal target in a similar fashion. An end-to-side anastomosis was created with a 7-0 prolene on the main OM. Antegrade cardioplegia was administered into the graft. Appropriate hemostasis and flow were
confirmed. We then performed a small venotomy in the underbelly of the vein graft and performed a vgsh-ax-wyio anastomosis to that branch vessel that I had opened. Test dose of antegrade cardioplegia demonstrated excellent flow and hemostasis the
graft was measured for length to the aorta and cut. A suitable target on the distal left anterior descending was identified. We dissected and prepared the distal target in a similar fashion. We retrieved the KESSLER from the chest and created a
pericardial opening while being cognizant of the phrenic nerve to facilitate the course of the mammary. The distal end of the mammary was prepped and beveled to size. We verified orientation and length of the KARSON and found brisk flow. An end-to-side
anastomosis was created with a 7-0 prolene. We temporarily released the bulldog clamp on the mammary to inspect flow. Perfusion to the LAD territory was visualized and hemostasis was confirmed. The bull clamp was replaced on the mammary. The heart
was filled and the root was distended with antegrade cardioplegia to make final assessment of graft length and orientation. We created 2 aortotomies using a #11 blade then a 4.0mm aortic punch. The proximal anastomoses were created in an end-to-side
fashion using 6-0 prolene and 7-0 Prolene for the RPDA. At the the same time, we re-warmed to 36.5 degrees centigrade. The bulldog clamp was removed from the mammary. Temporary bipolar ventricular pacing wires were placed on the base of the right
ventricle. The patient was placed in a Trendelenburg position and flows on bypass were lowered. The aortic cross clamp was removed and flows were slowly brought back up. All bypass grafts were inspected and were free from kinking or twisting. The
distal and proximal anastomoses appeared hemostatic. Once transesophageal echocardiography appeared satisfactory for de-airing, the flows were temporarily lowered for root vent removal. After verifying acceptable parameters, we initiated weaning
from cardiopulmonary bypass. Once we were off cardiopulmonary bypass, the venous cannula was clamped and removed. A test dose of protamine was administered and the patient was monitored for any adverse reaction before resuming protamine. Once half
of the protamine dose was delivered, pump suckers were turned off and the systolic blood pressure was lowered for aortic decannulation. The aortic cannula was removed and pursestrings were tied down. All cannulation sites were oversewn with a 4-0
prolene. The mammary bed was inspected and hemostasis was confirmed. Once the mediastinum was hemostatic, 19Fr Uriel drain was placed in the left pleural cavity and two 24Fr Uriel drains were placed within the pericardium. The sternum was
approximated with 4 #7 single and 3 #8 double stainless steel wires. Fascia was approximated with #1 vicryl suture. The subcutaneous, dermis and epidermis were closed in layers in a running fashion. The skin wound was cleansed and dressed.
All instrument, sponge, and needle counts were confirmed to be correct x 2 at the end of the operation. The patient was transferred to the cardiac intensive care unit in critical but stable condition.
I, Dr. Edgardo Cline, was present, scrubbed for, and performed all critical elements of this procedure.
Edgardo Cline MD, MS
Cardiothoracic Surgeon
[facility]
This operative dictation was created using the [employer] dictation system. Please excuse any grammatical, typographical, or 'sound alike' errors
[2025-05-14 12:51] LABS: Glucose - Point of Care 157 mg/dl (70-99)
[2025-05-14 12:54] LABS: ACT+ - POC > 1003 Seconds (82-134)
[2025-05-14 12:54] LABS: ACT+ - POC > 1003 Seconds (82-134)
[2025-05-14 12:58] LABS: B.E. -2.7 mmol/L; HCO3 21.8 mmol/L (21-28); O2 Saturation % 99.3 % (94-98); PCO2 36 mmHg (32-35); PO2 131 mmHg (83-108); Potassium 4.9 mMOL/L (3.5-5.1); Sodium 136 mMOL/L (136-145)
[2025-05-14 12:59] LABS: O2 Therapy 40% VENT
[2025-05-14 13:00] LABS: Hematocrit 35.2 % (37.0-47.0); Hemoglobin 11.6 g/dL (12.0-16.0); Platelet Count 73 10^3/uL (130-400)
--- NOTE | 2025-05-14 13:00 | PTCARENOTE ---
received patient from cvor sedated and placed on vent by [employer]. Out with usual lines, SR/SB HR 50-60s. V wire present to backup rate 60/10. pulses palpable. +1 edema to lower R leg. no pacing noted. CTx3 to -20 wall suction. No air leaks/crepitus
noted. 99% 40% Fio2. #8 ETT@22. SIMV 14/500/+5. labs drawn and sent. EKG and CXR done bedside. enrique draining clear yellow urine. all lines zerod and calibrated. Out on dobut @3mcg, precedex and insulin per glycemic protocol. cardene/levo used
intermittently. all surigcal sites stable. will continue to monitor.
[2025-05-14 13:07] LABS: INR 1.81; PT 21.2 Sec (11.4-14.6)
[2025-05-14 13:09] LABS: APTT 52.1 Sec (23.4-35.0)
--- NOTE | 2025-05-14 13:13 | W.PN.NEPH.PH ---
Today's Communication / Plan
-
For HD catheter placement
CRRT will be available if required
Remains hemodynamically stable on pressor and Cardene support
Remains intubated
Maintain Cortez catheter currently non oliguric
Assessment/Plan
-
IMP:
NSTEMI
CHr CHFpEF
chronic ILD/fibrosis
JESI with CKD stage 4 (baseline Cr� 2.5)-follows Dr Cast
DM2
CAD hx of MA, hx of stents last in October 2024
HTN
DM
GERD
h/o ACEI angioedema
h/o Henoch-Schonlein purpura
Gastric bypass 2010
ALISHA, mild, with nocturnal hypoxemia
PAD, SFA stent Apr 2020
Plan:
A/w NSTEMI
Status post CABG times 10/12/2024
Patient seen postoperatively intubated and sedated
Currently on Cardene and Levophed (hemodynamically stable)
[place] parameters reviewed. Cardiac index less than 2
PAD ~18
Creatinine was at 2.8 earlier this am pre op
Cortez catheter placed remains nonoliguric thus far postoperatively
Dialysis catheter to be placed with central line this afternoon
We will utilize CRRT if needed
I will be in touch with CT surgery staff later this afternoon to reevaluate
Discussed plan with CT surgery physician assist
Total critical care encounter time 32 minutes
C shows MVD, Severely elevated LVEDP in setting of severe hypertension.
follow labs and wts
previous d/w pt in detail about high risk of JESI and dialysis with upcoming surg which she understands and would accept dialysis if needed
Total Time Spent with Patient (in minutes): 32
-
-
Date of Service: May 14, 2025
CC / HPI / ROS
-
Chief Complaint:
Chest pain shortness of breath
History of Present Illness:
Creatinine 2.8 preoperative
Status post four-vessel CABG 05/14/2025
Hemodynamically stable on Cardene and Levophed dobutamine
Remains intubated postoperatively
Review of Systems:
Intubated sedated
Cortez catheter
Labs
-
Labs:
WBC 9.2 10^3/uL (4.8-10.8) 05/14/25 04:24
RBC 3.71 10^6/uL (4.20-5.40) L 05/14/25 04:24
Sodium 135 mmol/L (135-145) 05/14/25 04:24
Potassium 4.4 mmol/L (3.5-5.1) 05/14/25 04:24
Chloride 100 mmol/L (98-107) 05/14/25 04:24
Carbon Dioxide 30 mmol/L (22-30) 05/14/25 04:24
eGFR 17.08 05/14/25 04:24
Calcium 8.5 mg/dl (8.4-10.2) 05/14/25 04:24
Wtm-F-Nrflzgjlnmw Pept 8100 pg/ml 05/06/25 16:21
Albumin 3.4 g/dl (3.5-5.0) L 05/10/25 05:29
Physical Exam
-
Vital Signs:
Vital Signs
Temp Pulse Resp BP Pulse Ox
98.8 F 63 13 135/53 96
05/14/25 06:00 05/14/25 06:00 05/14/25 06:00 05/14/25 06:00 05/14/25 04:30
Cardiovascular:: Regular rate and rhythm
Respiratory:: Bilateral: Coarse
Lung Excursion:: Normal
Abdomen:: Nontender and Soft
Bowel Sounds:: Decreased
Extremity Edema:: None: Bilateral:
Cortez Catheter: Yes
Other Findings::
gen: intubated and sedated
[2025-05-14 13:24] LABS: Blood Urea Nitrogen 48 mg/dl (7-17); Estimated Creatinine Clearance 22 ml/min; Glucose 146 mg/dl (70-99); Magnesium 2.7 mg/dl (1.6-2.3)
[2025-05-14] MEDS: CALCIUM GLUCONATE 100 IV (13:37)
[2025-05-14] MEDS: NSS 500 IV (13:40)
[2025-05-14] MEDS: LIPITOR PO (13:46)
[2025-05-14] MEDS: ZETIA PO (13:46)
[2025-05-14] MEDS: SODIUM BICARBONATE PO (13:46)
[2025-05-14] MEDS: PACERONE PO ×2 (13:53→22:58)
[2025-05-14 14:05] LABS: Glucose - Point of Care 200 mg/dl (70-99)
[2025-05-14] MEDS: VERSED 0.5 MG IV (14:17)
--- NOTE | 2025-05-14 14:17 | PTCARENOTE ---
L IJ HD cath placed by Melina WE[employer] CONTROL INSPECTOR bedside. patient tolerated procedure.
--- NOTE | 2025-05-14 14:47 | W.PN.UPDATE ---
Update Note
Progress Note Update
A time-out was completed verifying correct patient, procedure, site, patient positioning, and special equipment. Patient was monitored with continuous bedside EKG, blood pressure, pulse ox readings.
The patient was placed in a dependent position appropriate for central line placement based on the vein to be cannulated. The patient's left neck was prepped and draped in sterile fashion using chlorhexidine, maximum barrier precautions, sterile
gloves, Gown drapes and mask.
Ultrasound was used in real time to localize vein and guide introducer needle. An introducer needle was placed into the left internal jugular vein using ultrasound guidance. A guidewire was introduced without resistance. Under ultrasound guidance,
confirmation of guidewire in vein was performed before dilation. Dilation was done over guidewire without complications. The 20 cm triple-lumen catheter was then threaded smoothly over the guide wire and into the central venous system. The
guidewire was removed and appropriate blood return was obtained from each lumen. Each lumen of the catheter was evacuated of any remaining air and flushed freely with sterile saline. The catheter was then secured with a stat lock to the skin and a
sterile occlusive dressing with Biopatch applied. An upright chest film was obtained after the procedure to assess for complications of insertion.
Estimated blood loss: 20 mL
Patient tolerated procedure well. Remains in critical condition.
CPT code 51240
--- NOTE | 2025-05-14 14:57 | W.PN.CARDCBS ---
Today's Communication / Plan
-
Cont post op care
Vent wean per protoco
Cont IV Dobutamine
Cont IV Cardene
Pt had HD placed for possible CRRT, nephrology following.
Impression / Plan
-
.
PCP: Dr. Carlton
Hospital Pharmacy Technician: Dr. VICKY Danielson
Impression:
Admitted with chest pain and NSTEMI 05/06/2025
NSTEMI, peak troponin 24.9
s/p CABG x 4 (In situ KESSLER to LAD, Ao to RSVG to OM to OM, Ao to RSVG to mid to distal RCA with ERNST exclusion 05/14/2025
Admission for acute HF and elevated troponin 11/26/24 until 11/28/2024
Admission for NSTEMI, MV CAD with distal LM into circumflex and distal LM into proximal LAD PCI, acute HF and JESI 10/29/2024 until 11/16/2024
Abnormal LFTs, elevated AST
JESI on CKD 4
CAD
s/p 2.5 mm Xience OM1 PCI 02/12/2019
s/p Xience prox and overlapping previously placed distal OM-1 05/17/2019
s/p 2.5 mm Xience OM1 PCI 01/20/21
NSTEMI, s/p complex MATT distal LM into LCx/OM1 3.0 x 22 mm Medtronics Hernan drug-eluting stent and from distal LM into proximal LAD 2.75 x 18 mm Medtronic Medora drug-eluting stent 11/14/2024
PAD
s/p R common femoral endarterectomy w/ patch angioplasty and covered R iliac stent 01/2024
s/p right SFA angioplasty and stent 04/2020
Accelerated in-stent restenosis of the distal LM into the ostial LAD and ostial circumflex with stable 60 to 70% ostial RCA lesion by cardiac cath 05/08/2025
h/o COVID 19 w/ residual parenchymal scarring
HTN
HLD
DM2
h/o Henoch-Sanna�nlein purpura
Glaucoma
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
h/o gastric bypass 2010
h/o angioedema on ZAY inhibitors
Aortic atherosclerosis
h/o orthostasis on Terazosin
h/o TIA 2016
Iron deficiency anemia
Echo 08/06/2020: EF 64%. Mild LVH. Normal RV. Mild MAC with mild MR. No AI or . Trace TR. PAP 29 mmHg
Echo 01/19/2021: EF 55-60%, stage I diastolic dysfunction, trace MR, trace TR, PAP 21 mmHg
Echo 10/29/2024: EF 40-45%, Stage I diastolic dysfunction, mild inferolateral and inferior hypokinesis
Echo 11/14/2024: EF 50 to 55%. No significant valvular disease. No pericardial effusion.
Echo 05/07/2025: EF 40 to 45%, inferior and inferolateral hypokinesis, normal RV size and function, mild MR, compared to echo from 11/14/2024 the EF is now reduced
Cardiac cath 11/01/2024: Left main 60% distal. LAD 40% ostial. Circumflex: Hazy 80% ostial, stents in OM1 with moderate diffuse ISR, smaller daughter branch of OM1 with 70% stenosis. RCA 60 to 70% ostial stenosis
Cardiac cath 11/14/2024: Successful complex percutaneous coronary artery intervention with one 3.0 x 22 mm Medtronics Medora drug-eluting stent from distal left main into left circumflex artery/OM1 and a second 2.75 x 18 mm Medtronic Hernan drug-eluting
stent from distal left main into proximal LAD
Cardiac cath 05/08/25: Accelerated restenosis (ISR) with distal LM extending into ostial LAD (70-80%) and ostial LCx (95%), 60-70% stable ostial RCA stenosis.
Plan:
-Medically complex 75-year-old female presenting with chest discomfort and non-STEMI with multivessel coronary artery disease status post distal left main into circumflex and proximal LAD PCI in October found to have accelerated restenosis with a distal
left main and stenting into the ostial LAD and ostial circumflex with stable 60-70% ostial RCA stenosis by cardiac cath 05/08/2025.
Cont post op care
Vent wean per protoco
Cont IV Dobutamine
Cont IV Cardene
Pt had HD placed for possible CRRT, nephrology following.
Discussed with nursing.
Patient came to the ER yesterday with chest pain and initial troponin was 1.65 and has now trended up to 23.2 prompting cardiology consultation for NSTEMI. Patient had a prolonged admission from 10/29/2024 until 11/16/2024 for NSTEMI and cardiac cath
showed MV CAD. Patient was initially seen in consultation by CT surgery and there is consideration for CABG, but this was ultimately deferred due to JESI on CKD and patient instead had high risk PCI with stenting of the distal left main into the
circumflex and distal left main into the proximal LAD on 11/14/2024. Patient was discharged home and then readmitted 2 weeks later with acute HF and CKD. Patient was then doing well and had last seen Dr. Danielson in the office on 01/31/2025. 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
for her and she started that job last week. In the meantime patient called the office with chest pain on 04/23/2025 and was advised to go to the ER for evaluation given her complex CAD history, she ended up not going to the ER because she was
afraid she would miss her first day of work. Instead she was taking NTG SL several times a day for chest pain. Chest pain is described as being present on a daily basis and comes and goes throughout the day, it is a deep aching feeling and feels
similar to her previous IA pain. She finally came to the ER last night because she ran out of her NTG SL tablets and the pharmacy would not refill her prescription. She is distressed because she only had 2 days at her new job before she had to
come to the ER and is now missing work. Despite this she is pain-free on heparin gtt and Nitropaste. Initial troponin is 1.65 and now up to 23.2.
Progress Note - Hospital Pharmacy Technician
Subjective
Date of Service: May 14, 2025
Patient seen and examined. Sedated on vent.
Objective
Labs:
05/14/25 12:39
Labs
Hgb 11.6 g/dL (12.0-16.0) L D 05/14/25 12:39
Hct 35.2 % (37.0-47.0) L 05/14/25 12:39
Plt Count 73 10^3/uL (130-400) L D 05/14/25 12:39
PT 21.2 Sec (11.4-14.6) H 05/14/25 12:39
INR 1.81 05/14/25 12:39
APTT 52.1 Sec (23.4-35.0) H 05/14/25 12:39
Sodium 135 mmol/L (135-145) 05/14/25 04:24
Potassium 4.4 mmol/L (3.5-5.1) 05/14/25 04:24
BUN 48 mg/dl (7-17) H 05/14/25 12:39
Creatinine 1.9 mg/dL (0.6-1.0) H 05/14/25 12:39
Glucose 146 mg/dl (70-99) H 05/14/25 12:39
Vital Signs and I&O:
Vital Signs
Temp Pulse Resp BP Pulse Ox
97.3 F 73 14 135/53 99
05/14/25 14:00 05/14/25 14:00 05/14/25 14:00 05/14/25 06:00 05/14/25 14:00
Vital Signs
Temp Pulse Resp BP Pulse Ox
97.3 F 73 14 135/53 99
05/14/25 14:00 05/14/25 14:00 05/14/25 14:00 05/14/25 06:00 05/14/25 14:00
Intake & Output
05/12/25 05/13/25 05/14/25 05/15/25
06:59 06:59 06:59 06:59
Intake Total 439.3 / 453.8 620.5 / 645.5 722.8 / 722.8 190.2 / 190.2
Output Total 5 / 2125 2335 / 2400 1795 / 1795 145 / 145
Balance -1625.7 / -1671.2 -1714.5 / -1754.5 -1072.2 / -1072.2 45.2 / 45.2
Physical Exam
Physical Exam
General: Sedated on vent
Neck: Negative JVD
Heart: Regular, Negative S3 positive S1/S2, Negative S4, No murmur
Lungs: CTA b/l, negative wheezes/rales/rhonchi
Abd: Positive BS, NT/ND, neg rebound/rigidity/guarding
Ext: Negative cyanosis/clubbing/edema
Neuro: nonfocal
[2025-05-14 15:02] LABS: Glucose - Point of Care 158 mg/dl (70-99)
[2025-05-14 16:18] LABS: Glucose - Point of Care 174 mg/dl (70-99)
[2025-05-14] MEDS: CALCIUM CHLORIDE 10% SYRINGE 500 MG IV (16:53)
--- NOTE | 2025-05-14 17:17 | PTCARENOTE ---
250 ml LR bolus given for low CI.
[2025-05-14 17:26] LABS: Glucose - Point of Care 138 mg/dl (70-99)
[2025-05-14] MEDS: NOVOLOG FLEXPEN-LOW RESISTANCE SC ×2 (18:42→18:43)
[2025-05-14 19:00] LABS: Glucose - Point of Care 123 mg/dl (70-99)
[2025-05-14] MEDS: LR 1000 IV (19:08)
[2025-05-14 19:13] LABS: Hematocrit 30.1 % (37.0-47.0); Hemoglobin 9.8 g/dL (12.0-16.0); Platelet Count 79 10^3/uL (130-400)
[2025-05-14] MEDS: LANTUS SC (19:18)
[2025-05-14] MEDS: LASIX IV (19:18)
[2025-05-14] MEDS: TOPROL XL PO (19:19)
[2025-05-14] MEDS: PROTONIX PO (19:19)
[2025-05-14] MEDS: LOW STRENGTH ASPIRIN PO (19:19)
[2025-05-14] MEDS: ANCEF 5 IV (20:12)
[2025-05-14] MEDS: SENOKOT PO (20:28)
[2025-05-14] MEDS: ASPIRIN 300 MG RECTAL (20:28)
[2025-05-14 20:37] LABS: B.E. -4.2 mmol/L; HCO3 19.8 mmol/L (21-28); O2 Saturation % 99.4 % (94-98); PCO2 32 mmHg (32-35); PO2 163 mmHg (83-108); Potassium 4.9 mMOL/L (3.5-5.1)
--- NOTE | 2025-05-14 21:00 | PTCARENOTE ---
Assumed care of patient at 1900. Patient found intubated in bed at time of assessment. Patient is intubated, responds to verbal and physical stimuli, but alert for <10 seconds before falling back to sleep. Pupils are equal and reactive to light 2mm
in size. Lung sounds are diminished in the bases saO2 100% on 40% FiO2. Patient has 8.0 ETT sitting 23cm on the lip see worklist items for settings. Patient has CTx3: L pleural draining to one atrium and 2xmeds draining to another atrium red
sanguineous. Heart sounds are audible, patient is SR with VVI settings 54/1.5/4. Patient has normal palpable radial pulses and weak but palpable DP pulses. No observable edema. Patient has hypoactive BS throughout all four quadrants of round
nontender abdomen and enrique catheter draining yellow clear urine. There is a sternal incision approx with surg adhesive ESTHER, CT wounds with 4x4 gauze CDI, bilateral groin puncture approx with surg adhesive ESTHER, bilateral knee incision with ZAY wrap
scant amount of sanguineous drainage, L arm hematoma firm ecchymotic BABY FORMULA MIXER, and R arm posterior bruise BABY FORMULA MIXER. Paitnet has R IJ cordis with swan@38cm, L radial lee, R arm 20G PIV, L arm 22G PIV, and L IJ HD cath curently capped. Patient on the
following gtts: Levo@2, insulin col 2, dobut@3, Cordis/ViP KVO, and LR@50ml/hr. Vital signs as follows: T-100.2 RR-14 P-65 BP-126/58 PAP-43/15 CVP-11 CI-2.02. ABG and MvO2 labs obtained. 1 amp bicarb administered pending f/u ABG.
[2025-05-14] MEDS: SODIUM BICARBONATE 50 MEQ IV (21:02)
[2025-05-14 21:11] LABS: Glucose - Point of Care 133 mg/dl (70-99)
[2025-05-14 22:09] LABS: Glucose - Point of Care 138 mg/dl (70-99)
[2025-05-14 22:18] LABS: B.E. -1.9 mmol/L; HCO3 21.7 mmol/L (21-28); O2 Saturation % 99.5 % (94-98); PCO2 32 mmHg (32-35); PO2 160 mmHg (83-108)
[2025-05-14] MEDS: LYRICA PO (22:57)
[2025-05-14 23:12] LABS: Glucose - Point of Care 111 mg/dl (70-99)
[2025-05-15] VITALS (18 sets, daily range): BP systolic 86–130; BP diastolic 29–87; BMI 28.8
[2025-05-15 00:05] LABS: Glucose - Point of Care 99 mg/dl (70-99)
--- NOTE | 2025-05-15 00:46 | PTCARENOTE ---
Patient reassessed. Vital signs stable. Remains SR on the monitor. Patient with more prolonged periods of alertness with spontaneous breaths. Will nod and look at RN, but unable to perform simple commands ie. gripping hands, wiggling toes. Attempted
Levo taper to 1 unable to tolerate with MAP of 58 adjusted back to 1. Vent settings adjusted rate to 12 for potential respiratory alkalosis. Call duran within reach.
[2025-05-15 00:55] LABS: Glucose - Point of Care 83 mg/dl (70-99)
--- NOTE | 2025-05-15 03:09 | W.PN.CT ---
Today's Communication / Plan
-
-pod #1
-very somnolent post anesthesia, opens eyes to voice, but doesn't follow commands consistently
-remains intubated. Didn't get any narcs overnight
-CI 1.94, CO 3.14, SVR 1197, mVO2 69.4
-drips: Dobut 3, Levo off, Cardene 2.5, LR 500 cc @ 50 /hr, Insulin
-CT outputs: L pleur 25/40, 2 meds 85/180 in 12/24 hrs
-sbp 90-110 overnight. Liberate bp 90-130
-wean off vent
-wean off drips as tolerated
-follow platelets - 87K (79K on 05/14)
-follow Hg 8.6 today (9.8 on 05/14)
-follow Cr 2.4 (2.8 preop)
-once extubated, encourage IS, OOb
Assessment / Plan
-
Impression:
-s/p CABGx 4 (In situ KESSLER to LAD, Ao to RSVG to OM to OM, Ao to RSVG to mid to distal RCA); Left atrial appendage exclusion by Dr. Cline on 05/14/25, pod#1
-Intraop REAGAN: LVEF preop was approximately 40% with regional wall motion abnormalities towards the lateral inferior wall. Following surgery, EF essentially normalized and regional wall motion normalized as well. Her left atrial appendage was
verified to be free of any thrombus or debris preoperatively and found to be totally occlusive postoperatively.
-Admitted with chest pain and NSTEMI 05/06/2025
-NSTEMI, troponin up to 24.9
-Admission for acute HF and elevated troponin 11/26/24 until 11/28/2024
-Admission for NSTEMI, MV CAD with distal LM into circumflex and distal LM into proximal LAD PCI, acute HF and JESI 10/29/2024 until 11/16/2024
-Abnormal LFTs, elevated AST
-JESI on CKD 4
-CAD
s/p 2.5 mm Xience OM1 PCI 02/12/2019
s/p Xience prox and overlapping previously placed distal OM-1 05/17/2019
s/p 2.5 mm Xience OM1 PCI 01/20/21
NSTEMI, s/p complex MATT distal LM into LCx/OM1 3.0 x 22 mm Medtronics Goldfield drug-eluting stent and from distal LM into proximal LAD 2.75 x 18 mm Medtronic Goldfield drug-eluting stent 11/14/2024PAD
s/p R common femoral endarterectomy w/ patch angioplasty and covered R iliac stent 01/2024
s/p right SFA angioplasty and stent 04/2020 h/o COVID 19 w/ residual parenchymal scarring
-Acute on chronic ischemic cardiomyopathy with EF of 40% with regional wall motion abnormalities
-PAD
-HTN
-HLD
-DM2
-h/o Henoch-Sanna�nlein purpura
-Glaucoma
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
-h/o gastric bypass 2010
-h/o angioedema on ZAY inhibitors
-Aortic atherosclerosis
-h/o orthostasis on Terazosin
-h/o TIA 2016
-Iron deficiency anemia
Echo 08/06/2020: EF 64%. Mild LVH. Normal RV. Mild MAC with mild MR. No AI or . Trace TR. PAP 29 mmHg
Echo 01/19/2021: EF 55-60%, stage I diastolic dysfunction, trace MR, trace TR, PAP 21 mmHg
Echo 10/29/2024: EF 40-45%, Stage I diastolic dysfunction, mild inferolateral and inferior hypokinesis
Echo 11/14/2024: EF 50 to 55%. No significant valvular disease. No pericardial effusion.
Echo 05/07/2025: Study pending
Cardiac cath 11/01/2024: Left main 60% distal. LAD 40% ostial. Circumflex: Hazy 80% ostial, stents in OM1 with moderate diffuse ISR, smaller daughter branch of OM1 with 70% stenosis. RCA 60 to 70% ostial stenosis
Cardiac cath 11/14/2024: Successful complex percutaneous coronary artery intervention with one 3.0 x 22 mm Medtronics Hernan drug-eluting stent from distal left main into left circumflex artery/OM1 and a second 2.75 x 18 mm Medtronic Goldfield drug-eluting
stent from distal left main into proximal LAD
Cardiac cath 05/08/25: Accelerated restenosis (ISR) with distal LM extending into ostial LAD (70-80%) and ostial LCx (95%), 60-70% stable ostial RCA stenosis.
-Acute postop blood loss anemia - s/p 2 pRBCS and cellsaver
-Acute postop thrombocytopenia
-Acute postop hypovolemia with subsequent hypervolemia
-Acute postop atelectasis/pulmonary insufficiency
-Acute postop somnolence with anesthesia
Discussed patient care with: Nursing and Care Team
Subjective
-
Date of Service: May 15, 2025
Objective Data
-
PT 21.2 Sec (11.4-14.6) H 05/14/25 12:39
INR 1.81 05/14/25 12:39
APTT 52.1 Sec (23.4-35.0) H 05/14/25 12:39
Vital Signs
Vital Signs
Temp Pulse Resp BP Pulse Ox
99.8 F 66 12 93/42 98
05/15/25 02:59 05/15/25 03:00 05/15/25 02:59 05/15/25 03:00 05/15/25 03:00
CT Intake/Output/Weight
05/14/25 05/14/25 05/15/25
06:59 18:59 06:59
Intake Total 205.3 / 722.8 310.8 / 1175.3 864.5 / 1175.3
Output Total 565 / 1795 485 / 945 460 / 945
Balance -359.7 / -1072.2 -174.2 / 230.3 404.5 / 230.3
SaO2: 98
Physical Exam
-
General: Other (somnolent, intubated)
Cardiovascular: Regular rate & rhythm, No Murmurs and Rub
Respiratory: Decreased Breath Sounds
Sternum: Stable
Incision: Clean, Dry and Intact
Extremities: Edema +1 (DPs 1+ b/l)
Abdomen: soft, nontender, nondistended, decreased bowel sounds
Data Reviewed
-
Lab Results: Results Reviewed
Medications: Active Meds Reviewed
Chest X-Ray: Report Reviewed and Image Reviewed
ECG: Report Reviewed and Image Reviewed
[2025-05-15 03:33] LABS: B.E. -2.7 mmol/L; HCO3 21.7 mmol/L (21-28); O2 Saturation % 99.3 % (94-98); PCO2 35 mmHg (32-35); PO2 136 mmHg (83-108); Potassium 4.4 mMOL/L (3.5-5.1)
[2025-05-15 03:52] LABS: Blood Urea Nitrogen 53 mg/dl (7-17); Calcium 8.5 mg/dl (8.4-10.2); Carbon Dioxide 25 mmol/L (22-30); Chloride 109 mmol/L (98-107); Estimated Creatinine Clearance 17 ml/min; Glucose 103 mg/dl (70-99); Magnesium 2.4 mg/dl (1.6-2.3); Potassium 4.3 mmol/L (3.5-5.1); Sodium 140 mmol/L (135-145); eGFR 20.55
[2025-05-15 03:56] LABS: Hematocrit 27.2 % (37.0-47.0); Hemoglobin 8.6 g/dL (12.0-16.0); Mean Corp Hgb Conc. 31.6 g/dL (33.0-37.0); Mean Corpuscular Volume 85.0 fL (81.0-99.0); Platelet Count 87 10^3/uL (130-400); Red Cell Dist. Width 17.2 % (11.5-14.5)
[2025-05-15] MEDS: ANCEF 5 IV ×2 (04:04→13:42)
[2025-05-15 04:05] LABS: Glucose - Point of Care 90 mg/dl (70-99)
--- NOTE | 2025-05-15 04:31 | PTCARENOTE ---
Patient reassessed. Remains SR on the monitor. AM labs obtained. AM hygiene care provided. EKG obtained Patient hypertensive following deep suctioning SBP in 160s Levo tapered to off started on cardene gtt. Patient remains quite drowsy capable of
awakening for prolonged periods of time and nods at RN, but unable to consistently follow simple commands prior to falling asleep again. Restraints applied to patient as when the wake up they attempt to pull out ETT.
--- NOTE | 2025-05-15 05:49 | DOWNTIME ---
There was a [employer] Rec[employer]ing Manager Downtime on 05/15/2025 from 0100 to 05/15/2025 at 0255. Downtime documentation of patient's care, including medication administrations, has been reconciled in the electronic record per guidelines. Refer to the
patient's paper chart under the miscellaneous tab to see printed paper medication records and downtime forms.
[2025-05-15 06:08] LABS: Glucose - Point of Care 134 mg/dl (70-99)
[2025-05-15 06:25] LABS: B.E. - POC -1.0 mmol/L; Glucose - POC 124 mg/dl (70-99); HCO3 - POC 23 mmol/L (21-28); Hematocrit - POC 26 % PCV (37-47); Hemodilution- POC Yes; Hemoglobin Calculated - POC 8.8; Ionized Calcium - POC 1.16 mmol/L (1.15-1.33); Lactate - POC 1.06 mmol/L (0.36-0.75); O2 Saturation %Calculated-POC 100.0 % (94-98); PCO2 - POC 36 mmHg (35-48); PO2 - POC 363 mmHg (83-108); POC Comment POST; Potassium - POC 5.0 mmol/L (3.5-5.1); Sodium - POC 138 mmol/L (136-145); Specimen Type - POC Arterial; pH - POC 7.42 (7.35-7.45)
[2025-05-15 07:07] LABS: Glucose - Point of Care 121 mg/dl (70-99)
--- NOTE | 2025-05-15 08:25 | PTCARENOTE ---
Rec'd pt this shift mechanically ventilated and sleepy. Pt with Rt IJ swan and cordis. Pt on Dobutamine at 3mcg/kg/min change of shift. CI >2.0. Melina, ARMORED CAR GUARD AND DRIVER ordered Dobutamine to 2 mcg/min. Cardene at 2.5mg/hr to Keep SBP <110. Pt able to open eyes to
name and squeeze my hands at times. Pt placed on CPAP 5 PS 8 .40% at 0800. Pulse ox 100%, TV 400. RR 16. No resp distress noted. Pt placed on CPAP 5 PS 5 .40%. TV remains 350-400. Pulse ox 100%. RR 16. Pt with CT X 3, V-wire on VVI backup. Insulin
drip on and titrated to glycemic protocol. See worklist for VS/I and O and assessments.
--- NOTE | 2025-05-15 08:28 | W.PN.INTV ---
Today's Communication / Plan
Recommendations
- SAT/SBT, extubate per protocol
- Wean pressors as tolerated
Assessment
-
75-year-old female with history of coronary artery disease, acute NSTEMI due to in-stent restenosis, s/p CABG, left atrial appendage exclusion, POD #1
Titrate off pressors per protocol, currently Levophed infusing at 1, Cardene at 2.5. MAP of 69, CVP of 12.
ECHO reviewed with mildly reduced ejection fraction
PA catheter readings reviewed, 37/16, mean 25
Management of chest tubes per primary service
Intubated/sedated
Pain control
RASS goal of 0 to -1
Intubated for procedure, SBT trial on gling
Current vent settings: PSV 8/5, pulling Vt 380ml
AB.40/35/136
CXR without pneumothorax
Extubate per protocol
Maintain supplement oxygen as needed
Known history of mild chronic fibrotic lung disease felt to be post-COVID, stable
Prior PFTs reviewed
Can add nebulizers if needed
Aspiration precautions
Encouraged incentive spirometry, OOB/ambulation/early mobility
Advance diet as tolerated following extubation
GI prophylaxis: Protonix
Monitor critical I/O's
Cortez/chest tube output
Hb/platelets postoperatively, mild drift
Trend CBC for now
Can transfuse if indicated for Hb <7, plt <50 in surgical patients
DVT prophylaxis including SCDs
Insulin protocol initiated and ongoing
Transition to SQ/off as indicated per team
Other medical diagnoses:
- Chronic pulmonary fibrosis with restrictive lung disease, felt to be post COVID sequela in 2020. Follows up with Dr. Fannie Apple at [facility] pulmonary clinic. Stable.
- CKD-IV. Currently oligoanuric, left neck trialysis catheter placed, anticipate CRRT initiation, nephrology service on case. Keep MAP above 65. Cardiac index noted to be low.
- CAD, s/p PCI 10/2024 with in-stent restenosis
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
- GERD
- HTN, HLD
- DM
- History of glaucoma
- TIA
- Peripheral vascular disease, SFA balloon angioplasty history
- History of gastric bypass surgery
- Obstructive sleep apnea
- History of HSP/IgA vasculitis
Critical Care time ICU mins -42- The patient is admitted for acute critical illness for the treatment of vital organ failure and/or prevention of further life-threatening conditions. Total care includes time spent in review of history, physical
exam, medications, hemodynamic/ventilator parameters, laboratory data, imaging and discussion with house staff, pharmacy, respiratory therapy, forklift wheel loader, and nursing
Data:
IABP placement 04/2025: Via left common femoral artery access
[facility] 04/2025: 1. Severe rapid/accelerated in-stent restenosis of distal LM extending into ostial LAD and LCX after recently placed stents on November 14, 2024.
2. Severely elevated LVEDP in setting of severe hypertension.
ECHO 04/2025: 1. Left ventricular systolic function is mildly reduced; LVEF 40-45% by visual estimate. Inferior and inferolateral hypokinesis.
2. Right ventricular size and systolic function are within normal limits.
3. Mild mitral valve regurgitation.
4. Compared to prior study dated 11/14/2024 which was directly reviewed, left ventricular systolic function appears less vigorous, previously LVEF estimated at 53%.
CT Chest 04/2025: Widespread bilateral prominent interstitial markings likely representing chronic interstitial fibrosis.
Small nonspecific mediastinal lymph nodes.
Cardiomegaly with extensive coronary artery calcifications.
Small hiatal hernia.
[facility] 10/2024: 1. Successful complex percutaneous coronary artery intervention with one 3.0 x 22 mm Medtronics Hernan drug-eluting stent from distal left main into left circumflex artery/OM1 and a second 2.75 x 18 mm Medtronic Hernan drug-eluting stent
from distal left main into proximal LAD, postdilated using IVUS guidance with a 2.75 x 15 mm NC balloon at 16 rock distally in the LAD and 3.5 x 8 mm NC balloon at 20 rock in the left main and a 3.0 x 15 mm NC balloon at 18 rock in OM1 with an
excellent angiographic result.
Spirometry 04/2025: Spirometry not suggestive of any obstructive lung disease. Pulmonary Function Testing suggestive of mild restrictive lung disease with FEV1 was 85% of predicted and TLC reduced at 60% of predicted. Severely reduced diffusion
capacity noted. No significant bronchodilator response noted.
Subjective Dataa
Subjective Data
Date of Service:
Date of Service: May 15, 2025
Subjective:
Patient currently intubated, mechanically ventilated and sedated
Review of Systems
General: Unobtainable - Sedation
Genitourinary: Other
Objective Data
Data Reviewed
Vital Signs / I&O / Oxygen:
Vital Signs
Temp Pulse Resp BP Pulse Ox
99.7 F 69 12 116/52 100
05/15/25 07:49 05/15/25 08:15 05/15/25 07:49 05/15/25 08:00 05/15/25 08:15
Intake and Output
05/14/25 05/15/25 05/16/25
06:59 06:59 06:59
Intake Total 722.8 / 722.8 1372.5 / 1372.5 48.4 / 48.4
Output Total 1795 / 1795 1077 / 1077 45 / 45
Balance -1072.2 / -1072.2 295.5 / 295.5 3.4 / 3.4
SaO2 [P-SIMV] 99
SaO2 100
Nasal Cannula flow liters per 2
minute
Physical Exam
General: Comfortable
HEENT: Normocephalic
Respiratory: Clear and Non-Labored Respirations
GI: Soft and Non Distended
Neurology: Other (Sedated)
Skin: Warm
Labs/Micro/Reports
Lab Data
05/15/25 03:17
05/15/25 03:17
Laboratory Results
05/14/25 05/14/25 05/14/25
12:39 20:19 22:06
PT 21.2 H
INR 1.81
APTT 52.1 H
pH 7.39 7.40 7.44
pCO2 36 H 32 32
pO2 131 H 163 H 160 H
HCO3 21.8 19.8 L 21.7
O2 Delivery Level 40% vent Not Reportable
05/15/25
03:17
PT
INR
APTT
pH 7.40
pCO2 35
pO2 136 H
HCO3 21.7
O2 Delivery Level Rr 12, fio2 40%
--- NOTE | 2025-05-15 08:44 | PTCARENOTE ---
Pt opens eyes to name, nods head appropriately. Was able to squeeze my hands and wiggle her toes.
[2025-05-15 09:02] LABS: B.E. - POC -1.1 mmol/L; Blood Urea Nitrogen - POC 46 mg/dl (3-120); Chloride - POC 109 mmol/L (96-111); Creatinine - POC 2.97 mg/dl (0.3-1.0); Glucose - POC 98 mg/dl (70-99); HCO3 - POC 23 mmol/L (21-28); Hematocrit - POC 24 % PCV (37-47); Hemodilution- POC Yes; Hemoglobin Calculated - POC 8.1; Ionized Calcium - POC 1.24 mmol/L (1.15-1.33); Lactate - POC 0.71 mmol/L (0.36-0.75); O2 Saturation %Calculated-POC 98.9 % (94-98); PCO2 - POC 37 mmHg (35-48); PO2 - POC 127 mmHg (83-108); Potassium - POC 4.4 mmol/L (3.5-5.1); Sodium - POC 142 mmol/L (136-145); Specimen Type - POC Arterial; pH - POC 7.41 (7.35-7.45)
[2025-05-15] MEDS: CARDENE 200 IV ×2 (09:20→17:25)
--- NOTE | 2025-05-15 09:23 | PTCARENOTE ---
ABG obtained and processed by ESTEFANY Summers. Okay to extubate. Pt sleepy but arousable, able to say hello after ETT removed. RR 18-20. Pulse ox 100%. No resp distress noted.
--- NOTE | 2025-05-15 09:32 | RESPNOTE ---
pt extubated at 0915 to 6L nasal cannula. 02 sats of 97% noted
[2025-05-15 10:23] LABS: Glucose - Point of Care 88 mg/dl (70-99)
[2025-05-15 10:23] LABS: Glucose - Point of Care 119 mg/dl (70-99)
--- NOTE | 2025-05-15 10:27 | PTCARENOTE ---
ABG and mixed venous sent on 6l n/c oxygen. Pulse ox 100%, RR 18-20. Pt turned q 2 hours and prn. Pts friend at bedside, updated her on plan of care.
[2025-05-15 10:30] LABS: B.E. 2.3 mmol/L; HCO3 26.4 mmol/L (21-28); O2 Saturation % 100.0 % (94-98); PCO2 38 mmHg (32-35); PO2 200 mmHg (83-108); Potassium 4.3 mMOL/L (3.5-5.1); Sodium 141 mMOL/L (136-145)
[2025-05-15 10:46] LABS: O2 Therapy nasal cannula
[2025-05-15 11:13] LABS: Glucose - Point of Care 83 mg/dl (70-99)
--- NOTE | 2025-05-15 11:53 | PN.CDI ---
CDI
- -
CDI:
Physician Documentation Request
Admit Date: 05/06/25 18:[address] Surgery,
Clinical Indicators:
Patient admitted with NSTEMI.
05/11 CTS note, 'Chest x-ray appears little more edematous today. Will plan to increase diuresis to Lasix IV twice daily preparation for OR Tuesday.'
05/11 Nephrology PN, 'agree with IV lasix for volume, wean O2 as able'
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
05/15 PN, 'Acute on chronic ischemic cardiomyopathy with EF of 40% with regional wall motion abnormalities'
Based on the above, could you clarify in the progress notes, the appropriate diagnosis, if significant, that supports the above abnormalities and additional evaluation, monitoring and/or treatment rendered:
Acute on chronic HFmrEF
Acute on chronic ischemic cardiomyopathy only
Other, please specify
Use of terms such as suspected, likely, concern for, or probable (associated with a specific diagnosis that is being evaluated, monitored, or treated as if it exists) are acceptable and can be coded in the inpatient setting, when documented at the
time of discharge.
Thank you,
ISABEL Isabel RN
CDI Specialist
available via tiger text
Please use your independent medical judgment in providing your response.
--- NOTE | 2025-05-15 12:32 | W.PN.NEPH.PH ---
Today's Communication / Plan
-
follow labs
cont post op supportive care
Assessment/Plan
-
IMP:
NSTEMI
CHr CHFpEF
chronic ILD/fibrosis
JESI with CKD stage 4 (baseline Cr� 2.5)-follows Dr Cast
DM2
CAD hx of ME, hx of stents last in October 2024
HTN
DM
GERD
h/o ACEI angioedema
h/o Henoch-Schonlein purpura
Gastric bypass 2010
ALISHA, mild, with nocturnal hypoxemia
PAD, SFA stent Apr 2020
Plan:
A/w NSTEMI
Status post CABGx4 on 05/14/2025
extubated this am but drowzy , arousable
Currently on Cardene and off pressors, gentle LR fluids
[place] parameters reviewed. Cardiac index 4, PAD ~15
Creatinine was at 2.4 baseline and non oliguric
keep Cortez catheter for now
no emergent need of HD , keep HD catheter
cont post op care
d/w nursing and friend at bedside
Total critical care encounter time 32 minutes
follow labs and wts
-
-
Date of Service: May 15, 2025
CC / HPI / ROS
-
Chief Complaint:
Chest pain shortness of breath
History of Present Illness:
Creatinine better 2.4
Status post four-vessel CABG 05/14/2025
Hemodynamically stable on Cardene and off Levophed, low dose dobutamine
extubated this am, on 2lit of o2hb at 8.[address] PRBC 3?
Review of Systems:
lethargic, open eyes on verbal stimuli
no fever
Cortez catheter, non oliguric, got tolta 500cc bolus last night
Labs
-
Labs:
WBC 15.3 10^3/uL (4.8-10.8) H 05/15/25 03:17
RBC 3.20 10^6/uL (4.20-5.40) L 05/15/25 03:17
Hgb 8.6 g/dL (12.0-16.0) L 05/15/25 03:17
Hct 27.2 % (37.0-47.0) L 05/15/25 03:17
Plt Count 87 10^3/uL (130-400) L 05/15/25 03:17
Sodium 140 mmol/L (135-145) 05/15/25 03:17
Potassium 4.3 mmol/L (3.5-5.1) 05/15/25 03:17
Chloride 109 mmol/L (98-107) H 05/15/25 03:17
Carbon Dioxide 25 mmol/L (22-30) 05/15/25 03:17
BUN 53 mg/dl (7-17) H 05/15/25 03:17
Creatinine 2.4 mg/dL (0.6-1.0) H 05/15/25 03:17
eGFR 20.55 05/15/25 03:17
Glucose 103 mg/dl (70-99) H 05/15/25 03:17
Calcium 8.5 mg/dl (8.4-10.2) 05/15/25 03:17
Lkr-B-Eikibtzcymw Pept 8100 pg/ml 05/06/25 16:21
Albumin 3.4 g/dl (3.5-5.0) L 05/10/25 05:29
Physical Exam
-
Vital Signs:
Vital Signs
Temp Pulse Resp BP Pulse Ox
99.3 F 71 16 98
05/15/25 11:56 05/15/25 11:45 05/15/25 11:56 05/15/25 11:00 05/15/25 11:56
Cardiovascular:: Regular rate and rhythm
Respiratory:: Bilateral: Coarse
Lung Excursion:: Normal
Abdomen:: Nontender and Soft
Bowel Sounds:: Decreased
Extremity Edema:: +1: Bilateral:
Cortez Catheter: Yes
Other Findings::
bilat leg in ZAY wrap, had vein harvesting
--- NOTE | 2025-05-15 12:38 | W.PN.UPDATE ---
Update Note
Progress Note Update
CDI
Acute on chronic HFmrEF
--- NOTE | 2025-05-15 12:48 | PN.DE.MGMTRT ---
Insulin Management
- -
05/15/2025 Diabetes Management Consult
Patient admitted 05/06 with chest pain. 05/08 had cardiac cath, 05/10 had cath with balloon pump insertion. PMH chronic HFpEF, diabetes, CAD s/p multiple stents 11/18, HTN, HCL, CKD 4, PVD, pneumonia. Prior to admission was taking Basaglar 24
units BID with 5 units novolog AC. A1C 10.4%, cr 2.4, eGFR 20.55.
POD 1 s/p CABG x 4, patient is arousable but very drowsy, falls back to sleep quickly, unable to discuss diabetes care. All information obtained from chart review and discussion with nurse. Patient know to diabetes team from previous admission.
Patient currently receiving critical care glycemic protocol insulin infusion requiring 1.2 to 3 units of insulin per hour. Will continue glycemic protocol today and assess in AM for readiness to transition to pre surgery regimen.
Discussed with nurse.
Will follow
Diabetes History
- -
Type of Diabetes: 2 requiring insulin
Pre-Admission Diabetes Regimen
05/14/25 05/15/25
12:39 03:17
Creatinine 1.9 H 2.4 H
Insulin Pump Settings
IP Diabetes Regimen
05/14/25 05/14/25 05/14/25
12:39 12:46 14:04
Glucose 146 H
POC Glucose 157 H 200 H
05/14/25 05/14/25 05/14/25
15:01 16:17 17:24
Glucose
POC Glucose 158 H 174 H 138 H
05/14/25 05/14/25 05/14/25
18:58 21:09 22:06
Glucose
POC Glucose 123 H 133 H 138 H
05/14/25 05/14/25 05/15/25
23:01 23:59 00:53
Glucose
POC Glucose 111 H 99 83
05/15/25 05/15/25 05/15/25
02:02 03:17 04:02
Glucose 103 H
POC Glucose 121 H 90
05/15/25 05/15/25 05/15/25
06:02 08:08 09:02
Glucose
POC Glucose 134 H 88 119 H
05/15/25
11:12
Glucose
POC Glucose 83
Patient Education
[2025-05-15 13:20] LABS: Glucose - Point of Care 125 mg/dl (70-99)
[2025-05-15] MEDS: NOVOLIN R INSULIN INFUSION 100 IV (13:24)
--- NOTE | 2025-05-15 13:27 | W.PN.ANS.POP ---
Anesthesia Post Operative
- Anesthesia Post Op Note
Vital Signs Stable-See Nursing Note: Yes
Airway Patent: Yes
Adequate Pain Control: Yes
Change in Mental Status: No
Current Postoperative Nausea & Vomiting: No
Anesthesia Complications: No
General Anesthetic Recall: No
Unplanned Admission: No
Post Op Hydration Adequate: Yes
[2025-05-15] MEDS: BACTROBAN 2% OINTMENT 1 APPLIC NASAL ×2 (13:39→19:48)
[2025-05-15] MEDS: LIPITOR PO (13:40)
[2025-05-15] MEDS: LOW STRENGTH ASPIRIN PO (13:40)
[2025-05-15] MEDS: PACERONE PO ×3 (13:40→23:48)
[2025-05-15] MEDS: SODIUM BICARBONATE PO (13:41)
[2025-05-15] MEDS: PROTONIX PO (13:41)
[2025-05-15] MEDS: ZETIA PO (13:41)
[2025-05-15] MEDS: SENOKOT PO ×2 (13:41→19:48)
[2025-05-15] MEDS: NSS IV (13:42)
[2025-05-15] MEDS: PLAVIX PO (13:50)
[2025-05-15] MEDS: LR IV (13:55)
[2025-05-15] MEDS: OFIRMEV 100 IV (14:00)
[2025-05-15] MEDS: ASPIRIN 300 MG RECTAL (14:02)
[2025-05-15] MEDS: FERRLECIT 110 MG IV (14:02)
--- NOTE | 2025-05-15 14:46 | CM ---
Chart reviewed. Patient is independent of ADLS, lives with her in a [address], [facility], has a RW at home. Plan is for the patient to return home with CT Transitional RN. CM to follow
[2025-05-15 14:51] LABS: Glucose - Point of Care 101 mg/dl (70-99)
--- NOTE | 2025-05-15 15:02 | PTCARENOTE ---
Pt turned q2 hours and prn. Chest tube dressings changed and renata bandages removed from bilateral LE. No drainage noted from Left knee incision, left upper thigh and left groin incisions. Rt knee incision ESTHER, no drainage noted.
--- NOTE | 2025-05-15 15:11 | PTCARENOTE ---
Pt moving bilateral upper arms spontaneously and to command. Pt able to wiggle toes when asked to do so.
[2025-05-15 15:42] LABS: B.E. -0.2 mmol/L; HCO3 23.8 mmol/L (21-28); O2 Saturation % 98.4 % (94-98); PCO2 35 mmHg (32-35); PO2 118 mmHg (83-108); Potassium 4.5 mMOL/L (3.5-5.1); Sodium 141 mMOL/L (136-145)
[2025-05-15] MEDS: NARCAN 0.4 MG IV (15:47)
[2025-05-15 15:55] LABS: Ammonia < 9 umol/L (9-30)
--- NOTE | 2025-05-15 15:59 | PTCARENOTE ---
Narcan 0.4mg given IV at this time. labs sent.
[2025-05-15 16:24] LABS: Blood Urea Nitrogen 56 mg/dl (7-17); Calcium 8.5 mg/dl (8.4-10.2); Carbon Dioxide 24 mmol/L (22-30); Chloride 109 mmol/L (98-107); Estimated Creatinine Clearance 17 ml/min; Glucose 101 mg/dl (70-99); Magnesium 2.5 mg/dl (1.6-2.3); Potassium 4.3 mmol/L (3.5-5.1); Sodium 138 mmol/L (135-145); eGFR 19.56
[2025-05-15 17:22] LABS: Glucose - Point of Care 141 mg/dl (70-99)
[2025-05-15 18:44] LABS: Glucose - Point of Care 122 mg/dl (70-99)
--- NOTE | 2025-05-15 18:44 | PTCARENOTE ---
Escorted pt to CT scan, tolerated well.
--- NOTE | 2025-05-15 19:36 | PTCARENOTE ---
Assumed care of patient at 1900. Patient found resting in bed at time of assessment with friend at bedside. Patient is drowsy, arouses to verbal, pupils equal and reactive to light. Patient appears to be oriented to self, difficult to assess since
patient falls asleep med neuro assessment. Patient can move all extremities and follows basic commands ie straightener and aligner hands. Patient has bilateral soft limb restraints as she attempts to remove tubes. Lung sounds are diminished in the bases, saO2 99% on 2L
via NC, patient has CTx3: L pleural draining to one atrium and medsx2 draining to another red sanguineous. Heart sounds are audible, patient is SR on the monitor, trace generalized anasarca is present, patient has normal palpable radial pulses, and
weak but palpable dorsalis pedis. V wires are present with VVI settings. Patient has active BS throughout all four quadrants, remains npo d/t drowsiness, enrique catheter in place draining clear yellow urine. Patient has sternal incision approx with
surg adhesive ESTHER, ABD dressing over CT wounds CDI, L arm hematoma stable in size, generalized bruising throughout. Patient has bilateral groin punctures approx with surg adhesive ESTHER, bilateral knee incisions approx with surg adhesive CALL CENTER RN. Patient
has R IJ cordis with swan floated @38cm, L IJ HD cath, L radial lee, R arm 20G PIV and L arm 22G PIV. Patient is on cardene@5, insulin gtt col 2, and dobut@1 as well as cordis/[facility] KVO. VSS. Call duran within reach.
[2025-05-15 21:06] LABS: Glucose - Point of Care 89 mg/dl (70-99)
[2025-05-15 23:13] LABS: Glucose - Point of Care 134 mg/dl (70-99)
--- NOTE | 2025-05-16 | PTCARENOTE ---
Patient reassessed. Remains SR on the monitor. Hygiene care provided to patient all linens exchanged. VSS. Call duran within reach.
[2025-05-16] MEDS: CARDENE 200 IV ×3 (00:54→22:57)
[2025-05-16 01:04] LABS: Glucose - Point of Care 147 mg/dl (70-99)
[2025-05-16 03:08] LABS: Glucose - Point of Care 144 mg/dl (70-99)
[2025-05-16 03:31] LABS: B.E. -2.1 mmol/L; HCO3 22.2 mmol/L (21-28); O2 Saturation % 99.7 % (94-98); PCO2 35 mmHg (32-35); PO2 123 mmHg (83-108); Potassium 4.5 mMOL/L (3.5-5.1)
[2025-05-16 03:45] LABS: Ammonia < 9 umol/L (9-30)
[2025-05-16 04:00] VITALS: BP 120/34
[2025-05-16 04:00] LABS: Hematocrit 23.1 % (37.0-47.0); Hemoglobin 7.5 g/dL (12.0-16.0); Mean Corp Hgb Conc. 32.5 g/dL (33.0-37.0); Mean Corpuscular Volume 83.7 fL (81.0-99.0); Platelet Count 105 10^3/uL (130-400); Red Cell Dist. Width 18.0 % (11.5-14.5)
[2025-05-16 04:06] LABS: Blood Urea Nitrogen 55 mg/dl (7-17); Calcium 8.8 mg/dl (8.4-10.2); Carbon Dioxide 24 mmol/L (22-30); Chloride 111 mmol/L (98-107); Estimated Creatinine Clearance 17 ml/min; Glucose 134 mg/dl (70-99); Magnesium 2.6 mg/dl (1.6-2.3); Potassium 4.3 mmol/L (3.5-5.1); Sodium 140 mmol/L (135-145); eGFR 19.56
[2025-05-16 05:06] LABS: Glucose - Point of Care 139 mg/dl (70-99)
[2025-05-16 05:33] VITALS: BMI 28.9
--- NOTE | 2025-05-16 06:52 | PTCARENOTE ---
Patient reassessed. Remains SR on the monitor. Dobut weaned to 0. AM labs obtained. Per CT PA patient to remain lined this AM. Remains on 5mcg Cardene. VSS. Call duran within reach.
[2025-05-16 07:21] LABS: Glucose - Point of Care 102 mg/dl (70-99)
--- NOTE | 2025-05-16 07:37 | W.PN.CT ---
Today's Communication / Plan
-
-pod #2
-no issues overnight
-still somnolent, extubated on 05/15. No change after getting Narcan
-Drips: Cardene 5, Insulin. Dobut stopped at 3 am. CI 2.43, CO 3.94, SVR 1035. (off Dobut)
-CTs: 2 meds 60/220, L pleur 15/60 in 12/24 hrs
-Cr is stable - 2.5 today (2.8 preop)
-Hg 7.5- gave [address] Cline
-Ammonia level is nl <9
Assessment / Plan
-
Impression:
-s/p CABGx 4 (In situ KESSLER to LAD, Ao to RSVG to OM to OM, Ao to RSVG to mid to distal RCA); Left atrial appendage exclusion by Dr. Cline on 05/14/25, pod#2
-Intraop REAGAN: LVEF preop was approximately 40% with regional wall motion abnormalities towards the lateral inferior wall. Following surgery, EF essentially normalized and regional wall motion normalized as well. Her left atrial appendage was
verified to be free of any thrombus or debris preoperatively and found to be totally occlusive postoperatively.
-Admitted with chest pain and NSTEMI 05/06/2025
-NSTEMI, troponin up to 24.9
-Admission for acute HF and elevated troponin 11/26/24 until 11/28/2024
-Admission for NSTEMI, MV CAD with distal LM into circumflex and distal LM into proximal LAD PCI, acute HF and JESI 10/29/2024 until 11/16/2024
-Abnormal LFTs, elevated AST
-JESI on CKD 4
-CAD
s/p 2.5 mm Xience OM1 PCI 02/12/2019
s/p Xience prox and overlapping previously placed distal OM-1 05/17/2019
s/p 2.5 mm Xience OM1 PCI 01/20/21
NSTEMI, s/p complex MATT distal LM into LCx/OM1 3.0 x 22 mm Medtronics [place] drug-eluting stent and from distal LM into proximal LAD 2.75 x 18 mm Medtronic [place] drug-eluting stent 11/14/2024PAD
s/p R common femoral endarterectomy w/ patch angioplasty and covered R iliac stent 01/2024
s/p right SFA angioplasty and stent 04/2020 h/o COVID 19 w/ residual parenchymal scarring
-Acute on chronic ischemic cardiomyopathy with EF of 40% with regional wall motion abnormalities
-PAD
-HTN
-HLD
-DM2
-h/o Henoch-Sanna�nlein purpura
-Glaucoma
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
-h/o gastric bypass 2010
-h/o angioedema on ZAY inhibitors
-Aortic atherosclerosis
-h/o orthostasis on Terazosin
-h/o TIA 2016
-Iron deficiency anemia
Echo 08/06/2020: EF 64%. Mild LVH. Normal RV. Mild MAC with mild MR. No AI or . Trace TR. PAP 29 mmHg
Echo 01/19/2021: EF 55-60%, stage I diastolic dysfunction, trace MR, trace TR, PAP 21 mmHg
Echo 10/29/2024: EF 40-45%, Stage I diastolic dysfunction, mild inferolateral and inferior hypokinesis
Echo 11/14/2024: EF 50 to 55%. No significant valvular disease. No pericardial effusion.
Echo 05/07/2025: Study pending
Cardiac cath 11/01/2024: Left main 60% distal. LAD 40% ostial. Circumflex: Hazy 80% ostial, stents in OM1 with moderate diffuse ISR, smaller daughter branch of OM1 with 70% stenosis. RCA 60 to 70% ostial stenosis
Cardiac cath 11/14/2024: Successful complex percutaneous coronary artery intervention with one 3.0 x 22 mm Medtronics [place] drug-eluting stent from distal left main into left circumflex artery/OM1 and a second 2.75 x 18 mm Medtronic [place] drug-eluting
stent from distal left main into proximal LAD
Cardiac cath 05/08/25: Accelerated restenosis (ISR) with distal LM extending into ostial LAD (70-80%) and ostial LCx (95%), 60-70% stable ostial RCA stenosis.
-Acute postop blood loss anemia - s/p 2 pRBCS and cellsaver
-Acute postop thrombocytopenia
-Acute postop hypovolemia with subsequent hypervolemia
-Acute postop atelectasis/pulmonary insufficiency
-Acute postop somnolence with anesthesia
Discussed patient care with: Nursing and Care Team
Subjective
-
Date of Service: May 16, 2025
Objective Data
-
Lab Results
05/16/25 03:25
05/16/25 03:25
PT 21.2 Sec (11.4-14.6) H 05/14/25 12:39
INR 1.81 05/14/25 12:39
APTT 52.1 Sec (23.4-35.0) H 05/14/25 12:39
Vital Signs
Vital Signs
Temp Pulse Resp BP Pulse Ox
99.3 F 63 17 120/34 96
05/16/25 07:00 05/16/25 07:00 05/16/25 07:00 05/16/25 04:00 05/16/25 07:00
CT Intake/Output/Weight
05/15/25 05/16/25 05/16/25
18:59 06:59 18:59
Intake Total 811.8 / 1559.4 699.6 / 1559.4 48 / 48
Output Total 900 / 1551 611 / 1551 40 / 40
Balance -88.2 / 8.4 88.6 / 8.4 8 / 8
SaO2: 96
Physical Exam
-
General: Other (somnolent, opens eyes to voice, but doesn't follow commands consistently)
Cardiovascular: Regular rate & rhythm
Respiratory: Decreased Breath Sounds
Sternum: Stable
Incision: Clean, Dry and Intact
Extremities: Edema +1
Abdomen: soft, nontender, nondistended, +decreased bowel sounds
Data Reviewed
-
Lab Results: Results Reviewed
Medications: Active Meds Reviewed
Chest X-Ray: Report Reviewed and Image Reviewed
ECG: Report Reviewed and Image Reviewed
--- NOTE | 2025-05-16 08:00 | PTCARENOTE ---
Resumed care of patient from prev RN. Resting in bed. very drowsy. opens eyes to name. occasionally nods head appropriately, but will not speak. opens mouth was asked for mouth care. Remains with usual lines, V wire set to back up and CTx3. CI
>2.0. Cardene at 5mg/hr to Keep SBP <110. Pulse ox 98% on2L nc. will wean as tolerated. Insulin drip on and titrated to glycemic protocol. enrique draigin clear yellow urine. +bs. pulses palpable. All surgical sites stable. will continue to monitor.
--- NOTE | 2025-05-16 08:33 | W.PN.INTV ---
Today's Communication / Plan
Recommendations
- Central spirometry, wean oxygen as tolerated
- Delirium prevention, PT/OT, increase activity during daytime
Assessment
-
75-year-old female with history of coronary artery disease, acute NSTEMI due to in-stent restenosis, s/p CABG, left atrial appendage exclusion, POD #2
Titrated off pressors per protocol, 120/34, on Nicardipine infusion @ 5. Off pressors.
ECHO reviewed with mildly reduced ejection fraction
PA catheter readings reviewed, , mean 17
Management of chest tubes per primary service
Patient now extubated, saturating 95% on 2 L supplemental oxygen. Work of breathing normal.
CXR without pneumothorax, basilar atelectasis noted
Maintain supplement oxygen as needed
ABG, 7.40
Known history of mild chronic fibrotic lung disease felt to be post-COVID, stable
Prior PFTs reviewed
Can add nebulizers if needed
Aspiration precautions
Encouraged incentive spirometry, OOB/ambulation/early mobility
Advance diet as tolerated following extubation
GI prophylaxis: Protonix
Monitor critical I/O's
Cortez/chest tube output
Hb/platelets postoperatively, mild drift
Trend CBC for now
Can transfuse if indicated for Hb <7, plt <50 in surgical patients
DVT prophylaxis including SCDs
Insulin protocol initiated and ongoing
Transition to SQ/off as indicated per team
Other medical diagnoses:
- Chronic pulmonary fibrosis with restrictive lung disease, felt to be post COVID sequela in 2019. Follows up with Dr. Fannie Apple at [facility] pulmonary clinic. Stable.
- CKD-IV. Currently nonoliguric, left neck trialysis catheter placed, currently being monitored off renal replacement therapy
- CAD, s/p PCI 10/2024 with in-stent restenosis
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
- GERD
- HTN, HLD
- DM
- History of glaucoma
- TIA
- Peripheral vascular disease, SFA balloon angioplasty history
- History of gastric bypass surgery
- Obstructive sleep apnea
- History of HSP/IgA vasculitis
- Acute metabolic encephalopathy. Concern for delirium. CT head unremarkable. No hypercapnia noted. Minimize medications. Discussed with family at bedside. Reported history of delirium postanesthesia in the past typically taking 3 days to
resolve. No facial asymmetry noted. Patient is able to move all her extremities and responds to simple commands.
Critical Care time ICU mins -39- The patient is admitted for acute critical illness for the treatment of vital organ failure and/or prevention of further life-threatening conditions. Total care includes time spent in review of history, physical
exam, medications, hemodynamic/ventilator parameters, laboratory data, imaging and discussion with house staff, pharmacy, respiratory therapy, steel spar operator, and nursing
Data:
IABP placement 04/2025: Via left common femoral artery access
[facility] 04/2025: 1. Severe rapid/accelerated in-stent restenosis of distal LM extending into ostial LAD and LCX after recently placed stents on November 14, 2024.
2. Severely elevated LVEDP in setting of severe hypertension.
ECHO 04/2025: 1. Left ventricular systolic function is mildly reduced; LVEF 40-45% by visual estimate. Inferior and inferolateral hypokinesis.
2. Right ventricular size and systolic function are within normal limits.
3. Mild mitral valve regurgitation.
4. Compared to prior study dated 11/14/2024 which was directly reviewed, left ventricular systolic function appears less vigorous, previously LVEF estimated at 53%.
CT Chest 04/2025: Widespread bilateral prominent interstitial markings likely representing chronic interstitial fibrosis.
Small nonspecific mediastinal lymph nodes.
Cardiomegaly with extensive coronary artery calcifications.
Small hiatal hernia.
[facility] 10/2024: 1. Successful complex percutaneous coronary artery intervention with one 3.0 x 22 mm Medtronics [place] drug-eluting stent from distal left main into left circumflex artery/OM1 and a second 2.75 x 18 mm Medtronic [place] drug-eluting stent
from distal left main into proximal LAD, postdilated using IVUS guidance with a 2.75 x 15 mm NC balloon at 16 rock distally in the LAD and 3.5 x 8 mm NC balloon at 20 rock in the left main and a 3.0 x 15 mm NC balloon at 18 rock in OM1 with an
excellent angiographic result.
Spirometry 04/2025: Spirometry not suggestive of any obstructive lung disease. Pulmonary Function Testing suggestive of mild restrictive lung disease with FEV1 was 85% of predicted and TLC reduced at 60% of predicted. Severely reduced diffusion
capacity noted. No significant bronchodilator response noted.
Subjective Dataa
Subjective Data
Date of Service:
Date of Service: May 16, 2025
Subjective:
Patient extubated, currently lying in bed in no acute distress.
Review of Systems
Genitourinary: Other (Somewhat confused, unable to obtain a full review of system)
Objective Data
Data Reviewed
Vital Signs / I&O / Oxygen:
Vital Signs
Temp Pulse Resp BP Pulse Ox
99.3 F 63 17 120/34 96
05/16/25 07:00 05/16/25 07:00 05/16/25 07:00 05/16/25 04:00 05/16/25 07:44
Intake and Output
05/15/25 05/16/25 05/17/25
06:59 06:59 06:59
Intake Total 1372.5 / 1372.5 1511.4 / 1559.4 94.7 / 94.7
Output Total 1077 / 1077 1511 / 1551 75 / 75
Balance 295.5 / 295.5 0.4 / 8.4 19.7 / 19.7
SaO2 [P-SIMV] 99
SaO2 96
Nasal Cannula flow liters per 2
minute
Physical Exam
General: Comfortable
HEENT: Normocephalic
Respiratory: Clear and Non-Labored Respirations
GI: Soft and Non Distended
Neurology: Awake, Alert and Other (Not fully oriented)
Skin: Warm
Labs/Micro/Reports
Lab Data
05/16/25 03:25
05/16/25 03:25
Laboratory Results
05/15/25 05/15/25 05/15/25
08:50 10:07 15:32
pH Cancelled 7.45 7.44
pCO2 Cancelled 38 H 35
pO2 Cancelled 200 H 118 H
HCO3 Cancelled 26.4 23.8
O2 Delivery Level Cancelled nasal cannula
05/16/25
03:25
pH 7.41
pCO2 35
pO2 123 H
HCO3 22.2
O2 Delivery Level
Microbiology
05/14/25 02:07 Urine Urine Culture - Preliminary
Enterococcus species
[2025-05-16] MEDS: LIPITOR PO (09:15)
[2025-05-16] MEDS: ZETIA PO (09:15)
[2025-05-16] MEDS: SENOKOT PO ×2 (09:15→20:31)
[2025-05-16] MEDS: LOW STRENGTH ASPIRIN PO (09:37)
[2025-05-16] MEDS: PLAVIX PO (09:37)
[2025-05-16] MEDS: PACERONE PO (09:37)
[2025-05-16] MEDS: PROTONIX PO (09:39)
[2025-05-16] MEDS: SODIUM BICARBONATE PO (09:39)
--- NOTE | 2025-05-16 09:54 | PN.DE.MGMTRT ---
Insulin Management
- -
05/16/2025 Diabetes Management Consult Follow up
Patient admitted 05/06 with chest pain. 05/08 had cardiac cath, 05/10 had cath with balloon pump insertion. PMH chronic HFpEF, diabetes, CAD s/p multiple stents 11/18, HTN, HCL, CKD 4, PVD, pneumonia. Prior to admission was taking Basaglar 24
units BID with 5 units novolog AC. A1C 10.4%, cr 2.4, eGFR 20.55.
POD 2 s/p CABG x 4, patient is arousable but very drowsy again today, falls back to sleep quickly, unable to discuss diabetes care. All information obtained from chart review and discussion with nurse. Patient known to diabetes team from
previous admission. Patient currently receiving critical care glycemic protocol insulin infusion requiring .4 to 3.5 units of insulin per hour. Will continue glycemic protocol today until HS. Will start lantus 24 units @ hs. 2 hours after
lantus administered insulin infusion to be stopped. In AM 05/17 will start AC novolog 5 units with low corrective.
Discussed with nurse.
Will follow
Diabetes History
- -
Type of Diabetes: 2 requiring insulin
Pre-Admission Diabetes Regimen
05/15/25 05/16/25
15:50 03:25
Creatinine 2.5 H 2.5 H
Insulin Pump Settings
IP Diabetes Regimen
05/15/25 05/15/25 05/15/25
08:08 09:02 11:12
Glucose
POC Glucose 88 119 H 83
05/15/25 05/15/25 05/15/25
13:19 14:50 15:50
Glucose 101 H
POC Glucose 125 H 101 H
05/15/25 05/15/25 05/15/25
17:21 18:43 20:59
Glucose
POC Glucose 141 H 122 H 89
05/15/25 05/16/25 05/16/25
23:11 01:01 03:06
Glucose
POC Glucose 134 H 147 H 144 H
05/16/25 05/16/25 05/16/25
03:25 05:03 07:19
Glucose 134 H
POC Glucose 139 H 102 H
Patient Education
[2025-05-16] MEDS: BACTROBAN 2% OINTMENT 1 APPLIC NASAL ×2 (10:13→20:31)
[2025-05-16] MEDS: LASIX 40 MG IV (10:22)
[2025-05-16 10:26] LABS: Glucose - Point of Care 116 mg/dl (70-99)
--- NOTE | 2025-05-16 11:40 | CM ---
Chart reviewed. Patient still remains very somnolent. Patient independent of ADLS, lives with her in a [address], 2 [address], has a RW. Patient will need a functional assessment to determine discharge needs. CM to follow
--- NOTE | 2025-05-16 11:53 | W.PN.NEPH.PH ---
Today's Communication / Plan
-
follow lab s
Assessment/Plan
-
IMP:
NSTEMI
CHr CHFpEF
chronic ILD/fibrosis
JESI with CKD stage 4 (baseline Cr� 2.5)-follows Dr Cast
DM2
CAD hx of SC, hx of stents last in October 2024
HTN
DM
GERD
h/o ACEI angioedema
h/o Henoch-Schonlein purpura
Gastric bypass 2010
ALISHA, mild, with nocturnal hypoxemia
PAD, SFA stent Apr 2020
Plan:
A/w NSTEMI
Status post CABGx4 on 05/14/2025
remains drowzy , arousable
BPs stable off meds
Grant-Marcus parameters reviewed, PAP in 30s,
wt is up and s/p lasix today
Creatinine was at 2.5 baseline and non oliguric
keep Cortez catheter for now
no emergent need of HD , keep HD catheter if cr remains stable likely d/c soon
cont post op care
d/w nursing
follow labs and wts
-
-
Date of Service: May 16, 2025
CC / HPI / ROS
-
Chief Complaint:
Chest pain shortness of breath
History of Present Illness:
Creatinine stable at 2.5
Status post four-vessel CABG 05/14/2025
Hemodynamically stable off meds
hb low 7.5
wt slightly up
Review of Systems:
lethargic, open eyes on verbal stimuli, on 2lit of O2
no fever
Cortez catheter, non oliguric
Labs
-
Labs:
WBC 18.0 10^3/uL (4.8-10.8) H 05/16/25 03:25
RBC 2.76 10^6/uL (4.20-5.40) L 05/16/25 03:25
Hgb 7.5 g/dL (12.0-16.0) L 05/16/25 03:25
Hct 23.1 % (37.0-47.0) L 05/16/25 03:25
Plt Count 105 10^3/uL (130-400) L D 05/16/25 03:25
Sodium 140 mmol/L (135-145) 05/16/25 03:25
Potassium 4.3 mmol/L (3.5-5.1) 05/16/25 03:25
Chloride 111 mmol/L (98-107) H 05/16/25 03:25
Carbon Dioxide 24 mmol/L (22-30) 05/16/25 03:25
BUN 55 mg/dl (7-17) H 05/16/25 03:25
Creatinine 2.5 mg/dL (0.6-1.0) H 05/16/25 03:25
eGFR 19.56 05/16/25 03:25
Glucose 134 mg/dl (70-99) H 05/16/25 03:25
Calcium 8.8 mg/dl (8.4-10.2) 05/16/25 03:25
Tvp-G-Liukbfatvuw Pept 8100 pg/ml 05/06/25 16:21
Albumin 3.4 g/dl (3.5-5.0) L 05/10/25 05:29
Physical Exam
-
Vital Signs:
Vital Signs
Temp Pulse Resp BP Pulse Ox
99.1 F 65 18 120/34 98
05/16/25 11:00 05/16/25 11:00 05/16/25 11:00 05/16/25 04:00 05/16/25 11:00
Cardiovascular:: Regular rate and rhythm
Respiratory:: Bilateral: Coarse
Lung Excursion:: Normal
Abdomen:: Nontender and Soft
Bowel Sounds:: Decreased
Extremity Edema:: +1: Bilateral:
Cortez Catheter: Yes
Other Findings::
bilat leg in ZAY wrap, had vein harvesting
[2025-05-16 12:23] LABS: Glucose - Point of Care 89 mg/dl (70-99)
--- NOTE | 2025-05-16 12:31 | PTCARENOTE ---
d/c chest tubes without incident. pulse ox 93% RA.
--- NOTE | 2025-05-16 13:04 | W.PN.CARDCBS ---
Addendum entered and electronically signed by Kathryn Gagnon MD 05/16/25 16:43:
I saw and examined the patient.
The Sheet Metal Assembler And Riveter's note was reviewed and I agree with the note.
Comment:Initially admitted with non-Q wave myocardial infarction. Status post CABG times 4, with left atrial appendage exclusion 05/14/25. Prior history of coronary stents with in-stent restenosis. Continues with some lethargy but arousable.
History of delirium with anesthesia in the past.. Anemia postop received blood. Renal insufficiency noted.
- Follow mental status carefully
- Continue usual postop care
- Follow hemoglobin status posttransfusion
- Follow renal function
- Follow telemetry and EKGs.
Original Note:
Today's Communication / Plan
-
follow mental status
post op care
in SR
Cr stable
follow hgb
Impression / Plan
-
.
PCP: Dr. Carlton
Hematology Specialist: Dr. VICKY Danielson
Impression:
Admitted with chest pain and NSTEMI 05/06/2025
NSTEMI, peak troponin 24.9
s/p CABG x 4 (In situ KESSLER to LAD, Ao to RSVG to OM to OM, Ao to RSVG to mid to distal RCA with ERNST exclusion 05/14/2025
Admission for acute HF and elevated troponin 11/26/24 until 11/28/2024
Admission for NSTEMI, MV CAD with distal LM into circumflex and distal LM into proximal LAD PCI, acute HF and JESI 10/29/2024 until 11/16/2024
Abnormal LFTs, elevated AST
JESI on CKD 4
CAD
s/p 2.5 mm Xience OM1 PCI 02/12/2019
s/p Xience prox and overlapping previously placed distal OM-1 05/17/2019
s/p 2.5 mm Xience OM1 PCI 01/20/21
NSTEMI, s/p complex MATT distal LM into LCx/OM1 3.0 x 22 mm Medtronics [place] drug-eluting stent and from distal LM into proximal LAD 2.75 x 18 mm Medtronic [place] drug-eluting stent 11/14/2024
PAD
s/p R common femoral endarterectomy w/ patch angioplasty and covered R iliac stent 01/2024
s/p right SFA angioplasty and stent 04/2020
Accelerated in-stent restenosis of the distal LM into the ostial LAD and ostial circumflex with stable 60 to 70% ostial RCA lesion by cardiac cath 05/08/2025
h/o COVID 19 w/ residual parenchymal scarring
HTN
HLD
DM2
h/o Henoch-Sanna�nlein purpura
Glaucoma
Celiac compression syndrome s/p TRANSITION PROGRAM MANAGER for compression and dissected 2016
h/o gastric bypass 2010
h/o angioedema on ZAY inhibitors
Aortic atherosclerosis
h/o orthostasis on Terazosin
h/o TIA 2016
Iron deficiency anemia
Echo 08/06/2020: EF 64%. Mild LVH. Normal RV. Mild MAC with mild MR. No AI or . Trace TR. PAP 29 mmHg
Echo 01/19/2021: EF 55-60%, stage I diastolic dysfunction, trace MR, trace TR, PAP 21 mmHg
Echo 10/29/2024: EF 40-45%, Stage I diastolic dysfunction, mild inferolateral and inferior hypokinesis
Echo 11/14/2024: EF 50 to 55%. No significant valvular disease. No pericardial effusion.
Echo 05/07/2025: EF 40 to 45%, inferior and inferolateral hypokinesis, normal RV size and function, mild MR, compared to echo from 11/14/2024 the EF is now reduced
Cardiac cath 11/01/2024: Left main 60% distal. LAD 40% ostial. Circumflex: Hazy 80% ostial, stents in OM1 with moderate diffuse ISR, smaller daughter branch of OM1 with 70% stenosis. RCA 60 to 70% ostial stenosis
Cardiac cath 11/14/2024: Successful complex percutaneous coronary artery intervention with one 3.0 x 22 mm Medtronics [place] drug-eluting stent from distal left main into left circumflex artery/OM1 and a second 2.75 x 18 mm Medtronic [place] drug-eluting
stent from distal left main into proximal LAD
Cardiac cath 05/08/25: Accelerated restenosis (ISR) with distal LM extending into ostial LAD (70-80%) and ostial LCx (95%), 60-70% stable ostial RCA stenosis.
Plan:
-Medically complex 75-year-old female presenting with chest discomfort and non-STEMI with multivessel coronary artery disease status post distal left main into circumflex and proximal LAD PCI in October found to have accelerated restenosis with a distal
left main and stenting into the ostial LAD and ostial circumflex with stable 60-70% ostial RCA stenosis by cardiac cath 05/08/2025.
-s/p CABG x 4 (In situ KESSLER to LAD, Ao to RSVG to OM to OM, Ao to RSVG to mid to distal RCA with ERNST exclusion 05/14/2025
-biggest issue at present is mental status. lethargic but arousable. during my exam, she shook her head no to having pain, shook her head yes that she remembered her friend at bedside and smiled at her. friend reports she has a history of delirium
and other issues with anesthesia in past. head CT was negative for acute abnormalities. ammonia <9. narcan did not improve mental status. consider neuro eval if does not improve
-received 1 U PRBCs for hgb 7.5 on 05/16
-on cardene@7.5, wean as able
-Cr stable at 2.5. making urine. s/p lasix today. nephrology following
-in SR on review of tele
-continue post op care
-d/w nursing. d/w friend at bedside
Patient came to the ER yesterday with chest pain and initial troponin was 1.65 and has now trended up to 23.2 prompting cardiology consultation for NSTEMI. Patient had a prolonged admission from 10/29/2024 until 11/16/2024 for NSTEMI and cardiac cath
showed MV CAD. Patient was initially seen in consultation by CT surgery and there is consideration for CABG, but this was ultimately deferred due to JESI on CKD and patient instead had high risk PCI with stenting of the distal left main into the
circumflex and distal left main into the proximal LAD on 11/14/2024. Patient was discharged home and then readmitted 2 weeks later with acute HF and CKD. Patient was then doing well and had last seen Dr. Danielson in the office on 01/31/2025. 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
for her and she started that job last week. In the meantime patient called the office with chest pain on 04/23/2025 and was advised to go to the ER for evaluation given her complex CAD history, she ended up not going to the ER because she was
afraid she would miss her first day of work. Instead she was taking NTG SL several times a day for chest pain. Chest pain is described as being present on a daily basis and comes and goes throughout the day, it is a deep aching feeling and feels
similar to her previous [place] pain. She finally came to the ER last night because she ran out of her NTG SL tablets and the pharmacy would not refill her prescription. She is distressed because she only had 2 days at her new job before she had to
come to the ER and is now missing work. Despite this she is pain-free on heparin gtt and Nitropaste. Initial troponin is 1.65 and now up to 23.2.
Progress Note - Hematology Specialist
Subjective
Date of Service: May 16, 2025
denies pain.
Objective
Labs:
05/16/25 03:25
05/16/25 03:25
Labs
Hgb 7.5 g/dL (12.0-16.0) L 05/16/25 03:25
Hct 23.1 % (37.0-47.0) L 05/16/25 03:25
Plt Count 105 10^3/uL (130-400) L D 05/16/25 03:25
PT 21.2 Sec (11.4-14.6) H 05/14/25 12:39
INR 1.81 05/14/25 12:39
APTT 52.1 Sec (23.4-35.0) H 05/14/25 12:39
Sodium 140 mmol/L (135-145) 05/16/25 03:25
Potassium 4.3 mmol/L (3.5-5.1) 05/16/25 03:25
BUN 55 mg/dl (7-17) H 05/16/25 03:25
Creatinine 2.5 mg/dL (0.6-1.0) H 05/16/25 03:25
Glucose 134 mg/dl (70-99) H 05/16/25 03:25
Vital Signs and I&O:
Vital Signs
Temp Pulse Resp BP Pulse Ox
99.4 F 66 20 120/34 92
05/16/25 12:00 05/16/25 12:00 05/16/25 12:00 05/16/25 04:00 05/16/25 12:47
Vital Signs
Temp Pulse Resp BP Pulse Ox
99.4 F 66 20 120/34 92
05/16/25 12:00 05/16/25 12:00 05/16/25 12:00 05/16/25 04:00 05/16/25 12:47
Intake & Output
05/14/25 05/15/25 05/16/25 05/17/25
07:59 07:59 07:59 07:59
Intake Total 697.8 / 697.8 1420.9 / 1420.9 1511.0 / 1557.7 208.0 / 208.0
Output Total 1730 / 1730 1122 / 1122 1506 / 1541 380 / 380
Balance -1032.2 / -1032.2 298.9 / 298.9 5.0 / 16.7 -172.0 / -172.0
Physical Exam
Physical Exam
GEN: No distress, lethargic but arousable. on supp O2. facial edema noted
HEENT: supple, anicteric, mmm, eomi
LUNGS: CTA B/L, no wheezes/rales
CV: Reg, S1/S2, no murmur
ABD: soft, NT/ND
EXT: No cyanosis, clubbing. trace edema of B/L LE
NEURO: Gross non-focal
SKIN: Warm, pink, dry. No rash. Sternotomy dressing c/d/i
[2025-05-16] MEDS: NSS IV (13:26)
[2025-05-16] MEDS: FERRLECIT 110 MG IV (14:50)
[2025-05-16 14:59] LABS: Glucose - Point of Care 122 mg/dl (70-99)
--- NOTE | 2025-05-16 16:31 | PTCARENOTE ---
PT awakes to voice and tracks but it lethargic and cant speak this time
[2025-05-16 16:55] LABS: Glucose - Point of Care 119 mg/dl (70-99)
[2025-05-16] MEDS: NSS 500 IV (17:10)
[2025-05-16] MEDS: LOPRESSOR 2.5 MG IV (18:00)
[2025-05-16 18:11] LABS: Glucose - Point of Care 107 mg/dl (70-99)
[2025-05-16 19:00] VITALS: BP 129/35
--- NOTE | 2025-05-16 20:00 | PTCARENOTE ---
Assumed care of patient at 1900. Patient found resting in bed with friend at bedside at time of assessment. Patient is extremely drowsy, arousable to verbal stimulus, patient nonverbal unable to assess orientation. Patient capable of moving all
extremities and follows basic commands at times. Heart sounds are audible, patient is SR/SB on the monitor with PVCs. Patient normal palpable radial pulses and weak but palpable DP pulses with +1 generalized anasarca. V wires in place with setting
40/2/0.8. Lung sounds are diminished in the bases, saO2 97% on 2L. Patient has active BS and enrique draining clear yellow urine. There is a sternal incision approx with surg adhesive ESTHER, ABD over CT wounds that is CDI, L medial thigh has new blister
that runs towards the posterior aspect of leg 4x4 gauze dressing applied. 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 Patient
has R IJ cordis with swan floated @38cm, L IJ HD cath, L arm 22G PIV, R arm 20G and L radial lee. Cardene@7.5 and insulin gtt running. Call duran within reach.
[2025-05-16 20:10] LABS: Glucose - Point of Care 88 mg/dl (70-99)
[2025-05-16] MEDS: OFIRMEV 100 IV (21:27)
[2025-05-16 22:09] LABS: Glucose - Point of Care 109 mg/dl (70-99)
[2025-05-16] MEDS: LANTUS 0.24 UNITS SC (22:10)
[2025-05-16 22:18] LABS: Blood Urea Nitrogen 60 mg/dl (7-17); Calcium 8.4 mg/dl (8.4-10.2); Carbon Dioxide 21 mmol/L (22-30); Chloride 113 mmol/L (98-107); Estimated Creatinine Clearance 18 ml/min; Glucose 121 mg/dl (70-99); Magnesium 2.6 mg/dl (1.6-2.3); Potassium 4.1 mmol/L (3.5-5.1); Sodium 140 mmol/L (135-145); eGFR 20.55
[2025-05-17] VITALS (18 sets, daily range): BP systolic 107–149; BP diastolic 35–83; PULSE 68; O2SAT 96; BMI 29.2
--- NOTE | 2025-05-17 | PTCARENOTE ---
Patient reassessed. VSS. Patient started on ofirmev q 6h for pain. Hygiene care provided. Stage 1 pressure ulcer noted on sacrum when inspecting under foam dressing. Dressing replaced. CT wound dressing replaced for small amount of serosang
drainage. Call duran within reach.
[2025-05-17 00:13] LABS: Glucose - Point of Care 148 mg/dl (70-99)
[2025-05-17] MEDS: LOPRESSOR IV (00:16)
[2025-05-17 03:04] LABS: Glucose - Point of Care 192 mg/dl (70-99)
[2025-05-17 04:02] LABS: Blood Urea Nitrogen 67 mg/dl (7-17); Calcium 8.8 mg/dl (8.4-10.2); Carbon Dioxide 20 mmol/L (22-30); Chloride 114 mmol/L (98-107); Estimated Creatinine Clearance 17 ml/min; Glucose 164 mg/dl (70-99); Magnesium 2.6 mg/dl (1.6-2.3); Potassium 4.4 mmol/L (3.5-5.1); Sodium 145 mmol/L (135-145); eGFR 19.56
[2025-05-17] MEDS: OFIRMEV 100 IV ×3 (04:17→15:14)
[2025-05-17 04:19] LABS: Hematocrit 28.7 % (37.0-47.0); Hemoglobin 9.0 g/dL (12.0-16.0); Mean Corp Hgb Conc. 31.4 g/dL (33.0-37.0); Mean Corpuscular Volume 87.5 fL (81.0-99.0); Platelet Count 140 10^3/uL (130-400); Red Cell Dist. Width 18.1 % (11.5-14.5)
--- NOTE | 2025-05-17 05:55 | PTCARENOTE ---
Patient reassessed. AM labs obtained. Patient assessed to be somewhat more responsive responded 'yeah' to some questions, smiling at this RN, laughing at this RN. VSS. Remains SR on the monitor. Call duran within reach.
[2025-05-17] MEDS: LOPRESSOR 2.5 MG IV (06:06)
[2025-05-17 06:47] LABS: B.E. -7.0 mmol/L; HCO3 17.3 mmol/L (21-28); O2 Saturation % 98.4 % (94-98); PCO2 30 mmHg (32-35); PO2 95 mmHg (83-108)
[2025-05-17 07:00] LABS: Glucose - Point of Care 183 mg/dl (70-99)
[2025-05-17] MEDS: CARDENE 200 IV (07:20)
[2025-05-17] MEDS: SODIUM BICARBONATE 100 MEQ IV (07:22)
[2025-05-17] MEDS: NOVOLOG FLEXPEN-LOW RESISTANCE 1 UNITS SC ×2 (07:23→17:08)
--- NOTE | 2025-05-17 08:20 | W.PN.INTV ---
Today's Communication / Plan
Recommendations
- Diuresis per primary team
- Enterococcus on urine culture, defer antibiotic therapy to primary team
Assessment
-
75-year-old female with history of coronary artery disease, acute NSTEMI due to in-stent restenosis, s/p CABG, left atrial appendage exclusion, POD #3
Titrated off pressors per protocol, MAP 61, on Nicardipine infusion @ 5. Off pressors.
ECHO reviewed with mildly reduced ejection fraction
PA catheter readings reviewed, , mean 28
Management of chest tubes per primary service
Patient now extubated, saturating 96% on 2 L supplemental oxygen. Work of breathing normal.
CXR suggestive of developing congestion, diuresis per primary team
Maintain supplement oxygen as needed
Known history of mild chronic fibrotic lung disease felt to be post-COVID, stable
Prior PFTs reviewed
Can add nebulizers if needed
Aspiration precautions
Encouraged incentive spirometry, OOB/ambulation/early mobility
Advance diet as tolerated following extubation
GI prophylaxis: Protonix
Monitor critical I/O's
Cortez/chest tube output
Hb/platelets postoperatively, mild drift
Trend CBC for now
Can transfuse if indicated for Hb <7, plt <50 in surgical patients
DVT prophylaxis including SCDs
Insulin per protocol
Other medical diagnoses:
- Chronic pulmonary fibrosis with restrictive lung disease, felt to be post COVID sequela in 2019. Follows up with Dr. Fannie Apple at [facility] pulmonary clinic. Stable.
- CKD-IV. Currently nonoliguric, left neck trialysis catheter placed, currently being monitored off renal replacement therapy
- CAD, s/p PCI 10/2024 with in-stent restenosis
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
- GERD
- HTN, HLD
- DM
- History of glaucoma
- TIA
- Peripheral vascular disease, SFA balloon angioplasty history
- History of gastric bypass surgery
- Obstructive sleep apnea
- History of HSP/IgA vasculitis
- Acute metabolic encephalopathy. Concern for delirium. CT head unremarkable. No hypercapnia noted. Minimize medications. Discussed with family at bedside. Reported history of delirium postanesthesia in the past typically taking 3 days to
resolve. No facial asymmetry noted. Patient is able to move all her extremities and responds to simple commands. 05/17, more awake and alert, makes eye contact. Gradually improving.
Critical Care time ICU mins -40- The patient is admitted for acute critical illness for the treatment of vital organ failure and/or prevention of further life-threatening conditions. Total care includes time spent in review of history, physical
exam, medications, hemodynamic/ventilator parameters, laboratory data, imaging and discussion with house staff, pharmacy, respiratory therapy, jewelry cutter, and nursing
Data:
IABP placement 04/2025: Via left common femoral artery access
[facility] 04/2025: 1. Severe rapid/accelerated in-stent restenosis of distal LM extending into ostial LAD and LCX after recently placed stents on November 14, 2024.
2. Severely elevated LVEDP in setting of severe hypertension.
ECHO 04/2025: 1. Left ventricular systolic function is mildly reduced; LVEF 40-45% by visual estimate. Inferior and inferolateral hypokinesis.
2. Right ventricular size and systolic function are within normal limits.
3. Mild mitral valve regurgitation.
4. Compared to prior study dated 11/14/2024 which was directly reviewed, left ventricular systolic function appears less vigorous, previously LVEF estimated at 53%.
CT Chest 04/2025: Widespread bilateral prominent interstitial markings likely representing chronic interstitial fibrosis.
Small nonspecific mediastinal lymph nodes.
Cardiomegaly with extensive coronary artery calcifications.
Small hiatal hernia.
[facility] 10/2024: 1. Successful complex percutaneous coronary artery intervention with one 3.0 x 22 mm Medtronics [place] drug-eluting stent from distal left main into left circumflex artery/OM1 and a second 2.75 x 18 mm Medtronic [place] drug-eluting stent
from distal left main into proximal LAD, postdilated using IVUS guidance with a 2.75 x 15 mm NC balloon at 16 rock distally in the LAD and 3.5 x 8 mm NC balloon at 20 rock in the left main and a 3.0 x 15 mm NC balloon at 18 orck in OM1 with an
excellent angiographic result.
Spirometry 04/2025: Spirometry not suggestive of any obstructive lung disease. Pulmonary Function Testing suggestive of mild restrictive lung disease with FEV1 was 85% of predicted and TLC reduced at 60% of predicted. Severely reduced diffusion
capacity noted. No significant bronchodilator response noted.
Subjective Dataa
Subjective Data
Date of Service:
Date of Service: May 17, 2025
Subjective:
Patient comfortably lying in bed in no acute distress.
Review of Systems
Genitourinary: Other (More awake and alert however still not able to provide full review of system)
Objective Data
Data Reviewed
Vital Signs / I&O / Oxygen:
Vital Signs
Temp Pulse Resp BP Pulse Ox
97.9 F 65 16 120/35 98
05/17/25 07:00 05/17/25 07:30 05/17/25 07:30 05/17/25 07:00 05/17/25 07:00
Intake and Output
05/16/25 05/17/25 05/18/25
06:59 06:59 06:59
Intake Total 1511.4 / 1559.4 1233.9 / 1278.9 45 / 45
Output Total 1511 / 1551 1137 / 1172 35 / 35
Balance 0.4 / 8.4 96.9 / 106.9
SaO2 [P-SIMV] 99
SaO2 98
Nasal Cannula flow liters per 2
minute
Physical Exam
General: Comfortable
HEENT: Normocephalic
Respiratory: Clear, Crackles (Few basilar crackles on exam) and Non-Labored Respirations
GI: Soft and Non Distended
Neurology: Awake, Alert and Other (Not fully oriented)
Skin: Warm
Labs/Micro/Reports
Lab Data
05/17/25 03:10
05/17/25 03:10
Laboratory Results
05/17/25
06:19
pH 7.37
pCO2 30 L
pO2 95
HCO3 17.3 L
O2 Delivery Level
Microbiology
05/14/25 02:07 Urine Urine Culture - Final
Enterococcus faecalis
[2025-05-17] MEDS: NOVOLOG FLEXPEN SC ×2 (08:52→13:33)
[2025-05-17] MEDS: PLAVIX 75 MG PO (08:53)
[2025-05-17] MEDS: BACTROBAN 2% OINTMENT 1 APPLIC NASAL ×2 (08:53→21:01)
[2025-05-17] MEDS: SENOKOT 8.6 MG PO ×2 (08:53→21:00)
[2025-05-17] MEDS: SODIUM BICARBONATE 650 MG PO ×2 (08:53)
--- NOTE | 2025-05-17 09:13 | W.PN.NEPH.PH ---
Today's Communication / Plan
-
Follow BMP
No acute interventions needed at this time i.e. dialysis
Hemodynamically stable
Remains nonoliguric
Assessment/Plan
-
IMP:
NSTEMI
CHr CHFpEF
chronic ILD/fibrosis
JESI with CKD stage 4 (baseline Cr� 2.5)-follows Dr Cast
DM2
CAD hx of [place], hx of stents last in October 2024
HTN
DM
GERD
h/o ACEI angioedema
h/o Henoch-Schonlein purpura
Gastric bypass 2010
ALISHA, mild, with nocturnal hypoxemia
PAD, SFA stent Apr 2020
Plan:
A/w NSTEMI
Status post CABGx4 on 05/14/2025
Status post transfusion yesterday with appropriate rise in hemo-
More conversational today appears to be in no distress
BPs stable off meds
[place] parameters reviewed, PAP in 30s,
wt is up and s/p lasix today
Creatinine was at 2.5 baseline and non oliguric
keep Cortez catheter for now
no emergent need of HD , keep HD catheter if cr remains stable likely d/c soon
cont post op care
No need for diuretics yet but if weights continue to rise we can provide this intermittent
d/w nursing
follow labs and wts
-
-
Date of Service: May 17, 2025
CC / HPI / ROS
-
Chief Complaint:
Chest pain shortness of breath
History of Present Illness:
Creatinine stable at 2.5
Status post four-vessel CABG 05/14/2025
Hemodynamically stable off meds
Hemoglobin up to 9.1 following blood transfusion
wt slightly up
Review of Systems:
More awake and interactive today
no fever
Cortez catheter, non oliguric
Labs
-
Labs:
WBC 21.0 10^3/uL (4.8-10.8) H 05/17/25 03:10
RBC 3.28 10^6/uL (4.20-5.40) L 05/17/25 03:10
Hgb 9.0 g/dL (12.0-16.0) L 05/17/25 03:10
Hct 28.7 % (37.0-47.0) L 05/17/25 03:10
Plt Count 140 10^3/uL (130-400) D 05/17/25 03:10
Sodium 145 mmol/L (135-145) 05/17/25 03:10
Potassium 4.4 mmol/L (3.5-5.1) 05/17/25 03:10
Chloride 114 mmol/L (98-107) H 05/17/25 03:10
Carbon Dioxide 20 mmol/L (22-30) L 05/17/25 03:10
BUN 67 mg/dl (7-17) H 05/17/25 03:10
Creatinine 2.5 mg/dL (0.6-1.0) H 05/17/25 03:10
eGFR 19.56 05/17/25 03:10
Glucose 164 mg/dl (70-99) H 05/17/25 03:10
Calcium 8.8 mg/dl (8.4-10.2) 05/17/25 03:10
Ckk-K-Vtqmzetrpyc Pept 8100 pg/ml 05/06/25 16:21
Albumin 3.4 g/dl (3.5-5.0) L 05/10/25 05:29
Physical Exam
-
Vital Signs:
Vital Signs
Temp Pulse Resp BP Pulse Ox
97.9 F 65 16 120/35 98
05/17/25 07:00 05/17/25 07:30 05/17/25 07:30 05/17/25 07:00 05/17/25 07:00
Cardiovascular:: Regular rate and rhythm
Respiratory:: Bilateral: Coarse
Lung Excursion:: Normal
Abdomen:: Nontender and Soft
Bowel Sounds:: Decreased
Extremity Edema:: +1: Bilateral:
Cortez Catheter: Yes
Other Findings::
bilat leg in ZAY wrap, had vein harvesting
[2025-05-17] MEDS: LANTUS 0.24 UNITS SC ×2 (09:16→21:02)
[2025-05-17 09:30] LABS: B.E. -3.7 mmol/L; HCO3 19.9 mmol/L (21-28); O2 Saturation % 99.6 % (94-98); PCO2 30 mmHg (32-35); PO2 111 mmHg (83-108); Potassium 4.4 mMOL/L (3.5-5.1)
--- NOTE | 2025-05-17 09:33 | PTCARENOTE ---
Received pt from night time babysitter RN at 0700. Pt remains disorientated to self, time, situation, she is aware that she is in [place], following commands, pupils are 3 equal, reactive, moves all of her extremities. SB-NSR 50-60s w/PVCs, back up pacing
HR 40/2/.8. Maintaining systolic goal <130, mostly 110-120 SBP, turned cardene off this am. +2 edema BUE, +2 generalized, no BLE edema. Palpable radial pulses, weak PT and DP, cool extremities. dim lung sounds, crackles in the bases, on 2L NC to
maintain SPO2>94%. Normal bowel sounds, enrique in place draining clr, yellow, NPO, but swallowed meds ok crushed in applesauce. Scattered bruising, MS SENIOR ANALYST MARKET INTELLIGENCE intact, graft sites ESTHER intact, L upper thigh blister intact, sacrum red. KEYSHAWN lim w/chadwick @
40, PIV x2. Cardene in line, off currently. See flowsheets for further documentation.
--- NOTE | 2025-05-17 09:42 | PN.DE.MGMTRT ---
Insulin Management
- -
05/17/2025 Diabetes Management Consult Follow up
Patient admitted 05/06 with chest pain. 05/08 had cardiac cath, 05/10 had cath with balloon pump insertion. PMH chronic HFpEF, diabetes, CAD s/p multiple stents 11/18, HTN, HCL, CKD 4, PVD, pneumonia. Prior to admission was taking Basaglar 24
units BID with 5 units novolog AC. A1C 10.4%, cr 2.5, eGFR 19.56.
POD 3 s/p CABG x 4, patient is more awake and alert today, unable to discuss diabetes care. All information obtained from chart review and discussion with nurse. Patient known to diabetes team from previous admission.
Transitioned from Critical care glycemic protocol insulin infusion 05/16 @ HS. Received lantus 24 units @ hs, insulin infusion off 2 hours after administered. Fasting glucose this AM 183. Patient currently NPO, for speech eval. AC novolog 5 units
to start with first meal will use low corrective Q 6 until cleared for diet.
Will wait an additional day to determine if insulin doses should be adjusted.
Discussed with nurse.
Will follow
Diabetes History
- -
Type of Diabetes: 2 requiring insulin
Pre-Admission Diabetes Regimen
05/16/25 05/17/25
21:49 03:10
Creatinine 2.4 H 2.5 H
Insulin Pump Settings
IP Diabetes Regimen
05/16/25 05/16/25 05/16/25
10:25 12:21 14:40
Glucose
POC Glucose 116 H 89 122 H
05/16/25 05/16/25 05/16/25
16:44 18:10 20:05
Glucose
POC Glucose 119 H 107 H 88
05/16/25 05/16/25 05/17/25
21:49 22:04 00:12
Glucose 121 H
POC Glucose 109 H 148 H
05/17/25 05/17/25 05/17/25
03:02 03:10 06:58
Glucose 164 H
POC Glucose 192 H 183 H
Patient Education
--- NOTE | 2025-05-17 10:50 | W.PN.CT ---
Today's Communication / Plan
-
pod#3
-Bicarb for metabolic acidosis, recheck BMP
-wean off Cardene
- resume oral meds
-advance diet
-DC RIJ
Assessment / Plan
-
Impression:
-s/p CABGx 4 (In situ KESSLER to LAD, Ao to RSVG to OM to OM, Ao to RSVG to mid to distal RCA); Left atrial appendage exclusion by Dr. Cline on 05/14/25, pod#3
-Intraop REAGAN: LVEF preop was approximately 40% with regional wall motion abnormalities towards the lateral inferior wall. Following surgery, EF essentially normalized and regional wall motion normalized as well. Her left atrial appendage was
verified to be free of any thrombus or debris preoperatively and found to be totally occlusive postoperatively.
-Admitted with chest pain and NSTEMI 05/06/2025
-NSTEMI, troponin up to 24.9
-Admission for acute HF and elevated troponin 11/26/24 until 11/28/2024
-Admission for NSTEMI, MV CAD with distal LM into circumflex and distal LM into proximal LAD PCI, acute HF and JESI 10/29/2024 until 11/16/2024
-Abnormal LFTs, elevated AST
-JESI on CKD 4
-CAD
s/p 2.5 mm Xience OM1 PCI 02/12/2019
s/p Xience prox and overlapping previously placed distal OM-1 05/17/2019
s/p 2.5 mm Xience OM1 PCI 01/20/21
NSTEMI, s/p complex MATT distal LM into LCx/OM1 3.0 x 22 mm Medtronics [place] drug-eluting stent and from distal LM into proximal LAD 2.75 x 18 mm Medtronic [place] drug-eluting stent 11/14/2024PAD
s/p R common femoral endarterectomy w/ patch angioplasty and covered R iliac stent 01/2024
s/p right SFA angioplasty and stent 04/2020 h/o COVID 19 w/ residual parenchymal scarring
-Acute on chronic ischemic cardiomyopathy with EF of 40% with regional wall motion abnormalities
-PAD
-HTN
-HLD
-DM2
-h/o Henoch-Sanna�nlein purpura
-Glaucoma
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
-h/o gastric bypass 2010
-h/o angioedema on ZAY inhibitors
-Aortic atherosclerosis
-h/o orthostasis on Terazosin
-h/o TIA 2016
-Iron deficiency anemia
Echo 08/06/2020: EF 64%. Mild LVH. Normal RV. Mild MAC with mild MR. No AI or . Trace TR. PAP 29 mmHg
Echo 01/19/2021: EF 55-60%, stage I diastolic dysfunction, trace MR, trace TR, PAP 21 mmHg
Echo 10/29/2024: EF 40-45%, Stage I diastolic dysfunction, mild inferolateral and inferior hypokinesis
Echo 11/14/2024: EF 50 to 55%. No significant valvular disease. No pericardial effusion.
Echo 05/07/2025: Study pending
Cardiac cath 11/01/2024: Left main 60% distal. LAD 40% ostial. Circumflex: Hazy 80% ostial, stents in OM1 with moderate diffuse ISR, smaller daughter branch of OM1 with 70% stenosis. RCA 60 to 70% ostial stenosis
Cardiac cath 11/14/2024: Successful complex percutaneous coronary artery intervention with one 3.0 x 22 mm Medtronics [place] drug-eluting stent from distal left main into left circumflex artery/OM1 and a second 2.75 x 18 mm Medtronic [place] drug-eluting
stent from distal left main into proximal LAD
Cardiac cath 05/08/25: Accelerated restenosis (ISR) with distal LM extending into ostial LAD (70-80%) and ostial LCx (95%), 60-70% stable ostial RCA stenosis.
-Acute postop blood loss anemia - s/p 2 pRBCS and cellsaver
-Acute postop thrombocytopenia
-Acute postop hypovolemia with subsequent hypervolemia
-Acute postop atelectasis/pulmonary insufficiency
-Acute postop somnolence with anesthesia
Discussed patient care with: Cardiology, Nursing and Respiratory Therapy
Subjective
-
Date of Service: May 17, 2025
Objective Data
-
Lab Results
05/17/25 03:10
05/17/25 03:10
PT 21.2 Sec (11.4-14.6) H 05/14/25 12:39
INR 1.81 05/14/25 12:39
APTT 52.1 Sec (23.4-35.0) H 05/14/25 12:39
Vital Signs
Vital Signs
Temp Pulse Resp BP Pulse Ox
98 F 66 24 109/47 99
05/17/25 10:00 05/17/25 10:00 05/17/25 10:00 05/17/25 09:17 05/17/25 10:27
CT Intake/Output/Weight
05/16/25 05/17/25 05/17/25
18:59 06:59 18:59
Intake Total 539.1 / 1278.9 694.8 / 1278.9 115 / 115
Output Total 705 / 1172 432 / 1172 100 / 100
Balance -165.9 / 106.9 262.8 / 106.9 15 / 15
SaO2: 99
Physical Exam
-
General: AOx3
Cardiovascular: Regular rate & rhythm
Respiratory: Clear
Sternum: Stable
Incision: Clean, Dry and Intact
Extremities: No Edema and Other (RIJ)
Data Reviewed
-
Lab Results: Results Reviewed
Medications: Active Meds Reviewed
Chest X-Ray: Report Reviewed and Image Reviewed
ECG: Report Reviewed
--- NOTE | 2025-05-17 11:33 | PTCARENOTE ---
Pt reassessment unchanged, VSS. Removed chadwick. Cardene remains off.
--- NOTE | 2025-05-17 11:38 | CM ---
Chart reviewed. Patient much more awake and interactive this morning. Patient independent of ADLS, lives with her in a [address], 2 [facility], has a RW at home. CM to assess patient's functional assessment to determine discharge needs. CM to
follow
[2025-05-17 12:16] LABS: B.E. -4.2 mmol/L; HCO3 19.5 mmol/L (21-28); O2 Saturation % 98.9 % (94-98); PCO2 30 mmHg (32-35); PO2 101 mmHg (83-108)
--- NOTE | 2025-05-17 13:04 | WOUNDNOTE ---
L THIGH (MEDIAL POSTERIOR)
[2025-05-17] MEDS: FERRLECIT 110 MG IV (13:33)
--- NOTE | 2025-05-17 13:33 | WOUNDNOTE ---
[facility] RN note: Patient seen for HAPI report for L thigh stage 2 pressure injury and stage 1 sacral pressure injury. Patient has been bed bound since Tuesday d/t balloon pump as per ACACIA Barrera. She developed a linear serous blister with some bruising
suspect for post top Marcell and edema. Marcell is off. Silicone border foam dressing applied. Patient starting a po diet today. She is on a [employer] air bed and has an air chair cushion. ACACIA Lopez is planning to get patient out of bed to chair soon.
t/c SPD and ordered an bariatric air chair cushion. Discussed with RN. Patient has a discolored skin area with scar on R sacral/buttocks, does not appear new. Sacral shaped silicone border foam maintained. Updated CT CEDRICK Buchanan who approved
local care. Care plan to be updated. Consult as needed.
[2025-05-17] MEDS: NOVOLOG FLEXPEN-LOW RESISTANCE SC (13:34)
[2025-05-17 13:38] LABS: Glucose - Point of Care 257 mg/dl (70-99)
[2025-05-17] MEDS: NOVOLOG FLEXPEN-LOW RESISTANCE 3 UNITS SC (13:38)
--- NOTE | 2025-05-17 13:38 | W.PN.UPDATE ---
Update Note
Progress Note Update
Creat plateaued, making adequate urine. No need for dialysis. Left IJ HD catheter removed without difficulty.
[2025-05-17] MEDS: PACERONE 200 MG PO ×2 (15:15→22:06)
--- NOTE | 2025-05-17 15:26 | W.PN.CARDCBS ---
Addendum entered and electronically signed by Kathryn Gagnon MD 05/17/25 16:04:
I saw and examined the patient.
The Blending Machine Feeder's note was reviewed and I agree with the note.
Comment: Sitting in chair and brighter today. Mental status appears improved. Longstanding history of 'slow to wake up from anesthesia '. Seems more mental status related rather than muscular related.
Presented with a non-Q wave myocardial infarction and significant coronary disease noted. Status post CABG x 4 with left atrial appendage exclusion 05/14/2025. Prior history of coronary stents with in-stent restenosis.
- Continue usual postop care
- Increase activity as tolerates
- Continue aspirin and Plavix
- Nephrology following renal status
- Continue to monitor telemetry which remains stable.
Original Note:
Today's Communication / Plan
-
Mental status slowly improving
Hemoglobin improved
Continue to monitor on telemetry
Encourage incentive spirometry
Continue Plavix and aspirin for graft patency and for recent coronary stents
Continue to monitor electrolytes and renal function
Impression / Plan
-
.
PCP: Dr. Carlton
Lotus Notes Developer: Dr. VICKY Danielson
Impression:
Admitted with chest pain and NSTEMI 05/06/2025
NSTEMI, peak troponin 24.9
s/p CABG x 4 (In situ KESSLER to LAD, Ao to RSVG to OM to OM, Ao to RSVG to mid to distal RCA with ERNST exclusion 05/14/2025
JESI on CKD 4
Admission for acute HF and elevated troponin 11/26/24 until 11/28/2024
Admission for NSTEMI, MV CAD with distal LM into circumflex and distal LM into proximal LAD PCI, acute HF and JESI 10/29/2024 until 11/16/2024
Abnormal LFTs, elevated AST
CAD
s/p 2.5 mm Xience OM1 PCI 02/12/2019
s/p Xience prox and overlapping previously placed distal OM-1 05/17/2019
s/p 2.5 mm Xience OM1 PCI 01/20/21
NSTEMI, s/p complex MATT distal LM into LCx/OM1 3.0 x 22 mm Medtronics [place] drug-eluting stent and from distal LM into proximal LAD 2.75 x 18 mm Medtronic [place] drug-eluting stent 11/14/2024
PAD
s/p R common femoral endarterectomy w/ patch angioplasty and covered R iliac stent 01/2024
s/p right SFA angioplasty and stent 04/2020
Accelerated in-stent restenosis of the distal LM into the ostial LAD and ostial circumflex with stable 60 to 70% ostial RCA lesion by cardiac cath 05/08/2025
h/o COVID 19 w/ residual parenchymal scarring
HTN
HLD
DM2
h/o Henoch-Sanna�nlein purpura
Glaucoma
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
h/o gastric bypass 2010
h/o angioedema on ZAY inhibitors
Aortic atherosclerosis
h/o orthostasis on Terazosin
h/o TIA 2016
Iron deficiency anemia
Echo 08/06/2020: EF 64%. Mild LVH. Normal RV. Mild MAC with mild MR. No AI or . Trace TR. PAP 29 mmHg
Echo 01/19/2021: EF 55-60%, stage I diastolic dysfunction, trace MR, trace TR, PAP 21 mmHg
Echo 10/29/2024: EF 40-45%, Stage I diastolic dysfunction, mild inferolateral and inferior hypokinesis
Echo 11/14/2024: EF 50 to 55%. No significant valvular disease. No pericardial effusion.
Echo 05/07/2025: EF 40 to 45%, inferior and inferolateral hypokinesis, normal RV size and function, mild MR, compared to echo from 11/14/2024 the EF is now reduced
Cardiac cath 11/01/2024: Left main 60% distal. LAD 40% ostial. Circumflex: Hazy 80% ostial, stents in OM1 with moderate diffuse ISR, smaller daughter branch of OM1 with 70% stenosis. RCA 60 to 70% ostial stenosis
Cardiac cath 11/14/2024: Successful complex percutaneous coronary artery intervention with one 3.0 x 22 mm Medtronics [place] drug-eluting stent from distal left main into left circumflex artery/OM1 and a second 2.75 x 18 mm Medtronic [place] drug-eluting
stent from distal left main into proximal LAD
Cardiac cath 05/08/25: Accelerated restenosis (ISR) with distal LM extending into ostial LAD (70-80%) and ostial LCx (95%), 60-70% stable ostial RCA stenosis.
Plan:
-Medically complex 75-year-old female presenting with chest discomfort and non-STEMI with multivessel coronary artery disease status post distal left main into circumflex and proximal LAD PCI in October found to have accelerated restenosis with a distal
left main and stenting into the ostial LAD and ostial circumflex with stable 60-70% ostial RCA stenosis by cardiac cath 05/08/2025.
-s/p CABG x 4 (In situ KESSLER to LAD, Ao to RSVG to OM to OM, Ao to RSVG to mid to distal RCA with ERNST exclusion 05/14/2025
-Continue aspirin and Plavix for graft patency and for history of coronary stents in October 2024.
- Appears to be more alert and oriented today. She is able to tell me her name and that she is in [facility] Head CT on 05/15/2025 showed old lacunar stroke with moderate atrophy and no acute abnormality. Patient has a history of
delirium and other issues with anesthesia in past. Ammonia <9. Narcan did not improve mental status.
-received 4 U PRBCs this admission. Improved hgb 9.0 on 05/17
-Off Cardene. Blood pressures reasonably controlled on oral medications
-Cr stable at 2.5. making urine. Potassium 4.4, magnesium 2.6. Nephrology following.
-Patient on room air. Chest x-ray with increased pulmonary vascular congestion, low inspiration volumes lower, left lower lobe atelectasis, pressure obscuration of right lateral costophrenic angle concerning for small right pleural effusion.
Encourage incentive spirometry
-in SR on review of tele, some PVCs and runs of NSVT. Patient resumed on amiodarone 05/17/2025
-continue post op care
-d/w nursing. d/w friend at bedside
Patient came to the ER yesterday with chest pain and initial troponin was 1.65 and has now trended up to 23.2 prompting cardiology consultation for NSTEMI. Patient had a prolonged admission from 10/29/2024 until 11/16/2024 for NSTEMI and cardiac cath
showed MV CAD. Patient was initially seen in consultation by CT surgery and there is consideration for CABG, but this was ultimately deferred due to JESI on CKD and patient instead had high risk PCI with stenting of the distal left main into the
circumflex and distal left main into the proximal LAD on 11/14/2024. Patient was discharged home and then readmitted 2 weeks later with acute HF and CKD. Patient was then doing well and had last seen Dr. Danielson in the office on 01/31/2025. 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
for her and she started that job last week. In the meantime patient called the office with chest pain on 04/23/2025 and was advised to go to the ER for evaluation given her complex CAD history, she ended up not going to the ER because she was
afraid she would miss her first day of work. Instead she was taking NTG SL several times a day for chest pain. Chest pain is described as being present on a daily basis and comes and goes throughout the day, it is a deep aching feeling and feels
similar to her previous [place] pain. She finally came to the ER last night because she ran out of her NTG SL tablets and the pharmacy would not refill her prescription. She is distressed because she only had 2 days at her new job before she had to
come to the ER and is now missing work. Despite this she is pain-free on heparin gtt and Nitropaste. Initial troponin is 1.65 and now up to 23.2.
Progress Note - Lotus Notes Developer
Subjective
Date of Service: May 17, 2025
Patient seen and examined. Patient sitting in chair. More alert and talkative today but still not back to baseline.
Objective
Labs:
05/17/25 03:10
05/17/25 03:10
Labs
Hgb 9.0 g/dL (12.0-16.0) L 05/17/25 03:10
Hct 28.7 % (37.0-47.0) L 05/17/25 03:10
Plt Count 140 10^3/uL (130-400) D 05/17/25 03:10
PT 21.2 Sec (11.4-14.6) H 05/14/25 12:39
INR 1.81 05/14/25 12:39
APTT 52.1 Sec (23.4-35.0) H 05/14/25 12:39
Sodium 145 mmol/L (135-145) 05/17/25 03:10
Potassium 4.4 mmol/L (3.5-5.1) 05/17/25 03:10
BUN 67 mg/dl (7-17) H 05/17/25 03:10
Creatinine 2.5 mg/dL (0.6-1.0) H 05/17/25 03:10
Glucose 164 mg/dl (70-99) H 05/17/25 03:10
Vital Signs and I&O:
Vital Signs
Temp Pulse Resp BP Pulse Ox
98 F 71 18 124/53 95
05/17/25 11:00 05/17/25 15:00 05/17/25 15:00 05/17/25 15:00 05/17/25 15:00
Vital Signs
Temp Pulse Resp BP Pulse Ox
98 F 71 18 124/53 95
05/17/25 11:00 05/17/25 15:00 05/17/25 15:00 05/17/25 15:00 05/17/25 15:00
Intake & Output
05/15/25 05/16/25 05/17/25 05/18/25
06:59 06:59 06:59 06:59
Intake Total 1372.5 / 1372.5 1511.4 / 1559.4 1233.9 / 1278.9 415 / 415
Output Total 1077 / 1077 1511 / 1551 1137 / 1172 240 / 240
Balance 295.5 / 295.5 0.4 / 8.4 96.9 / 106.9 175 / 175
Physical Exam
Physical Exam
GEN: No distress, awake, Ox3 but still with reduced verbal output
HEENT: supple, anicteric, mmm
LUNGS: Crackles at bilateral bases with diminished breath sounds CTA, no wheezes/rales
CV: Reg, S1/S2, 1/6 syst LSB, no murmur
ABD: soft, BS+, NT/ND
EXT: No edema
NEURO: Gross non-focal
SKIN: No rash
--- NOTE | 2025-05-17 15:43 | PTCARENOTE ---
Pt Reassessment unchanged. More talkative, still forgetful and slow to respond. VSS, in NSR. Removed klaus and lee. CTNP removed dialysis line. OOB to the chair x3 assist. Plan for PT to see pt.
[2025-05-17 17:08] LABS: Glucose - Point of Care 187 mg/dl (70-99)
[2025-05-17] MEDS: NOVOLOG FLEXPEN 5 UNITS SC (17:08)
[2025-05-17] MEDS: LOPRESSOR 12.5 MG PO (21:00)
[2025-05-17 21:04] LABS: Glucose - Point of Care 164 mg/dl (70-99)
--- NOTE | 2025-05-17 21:20 | PTCARENOTE ---
Recc'd pt at shift change 1900OOB to the chair; AAOx2, disoriented to time; follows commands, although slow to respond at times. NSR on the monitor, SBP remains at goal. V-wire insulated. Tolerating RA, SpO2 94%, bilateral bases diminished with fine
crackles. Wound care UTD, see worklist for individual care. Assist x2 back to bed, repositioned, PM hygiene performed. Pt resting comfortably in bed, friend at the bedside staying the night, no questions at this time, updated on POC, call duran
within reach.
[2025-05-17] MEDS: TYLENOL PO ×2 (22:07→22:49)
[2025-05-17] MEDS: ANESTHETIC LOZENGE 1 LOZENGE PO (22:48)
[2025-05-18] VITALS (18 sets, daily range): BP systolic 110–134; BP diastolic 39–62; PULSE 60; BMI 29.5
[2025-05-18] MEDS: NOVOLOG FLEXPEN-LOW RESISTANCE SC ×4 (00:15→16:39)
[2025-05-18 00:17] LABS: Glucose - Point of Care 127 mg/dl (70-99)
--- NOTE | 2025-05-18 00:30 | PTCARENOTE ---
Pt assessment remains unchanged. 0000 accuchek 127, no insulin at this time. Pt without voiding yet this shift, denies the urge to urinate, bladder scanned for 355mL.
--- NOTE | 2025-05-18 04:10 | W.PN.CT ---
Today's Communication / Plan
-
Plan:
-No major issues overnight. Hemodynamically and neurologically intact
-Pt is fully awake, alert and oriented x 3
-Holding narcotics/sedatives
-Creatinine at baseline and voiding, nonoliguric. [facility] dialysis catheter d/c'd on 05/17 without incident
-Monitor postop hypernatremia and hypokalemia, will tx with kcl in d5w
-Hold diuresis today
-Encourage use of IS
-OOB into chair/Ambulate
-PT/OT evaluating for home vs acute rehab
Assessment / Plan
-
Impression:
-s/p CABGx 4 (In situ KESSLER to LAD, Ao to RSVG to OM to OM, Ao to RSVG to mid to distal RCA); Left atrial appendage exclusion by Dr. Cline on 05/14/25, pod#4
-Intraop REAGAN: LVEF preop was approximately 40% with regional wall motion abnormalities towards the lateral inferior wall. Following surgery, EF essentially normalized and regional wall motion normalized as well. Her left atrial appendage was
verified to be free of any thrombus or debris preoperatively and found to be totally occlusive postoperatively.
-Admitted with chest pain and NSTEMI 05/06/2025
-NSTEMI, troponin up to 24.9
-Admission for acute HF and elevated troponin 11/26/24 until 11/28/2024
-Admission for NSTEMI, MV CAD with distal LM into circumflex and distal LM into proximal LAD PCI, acute HF and JESI 10/29/2024 until 11/16/2024
-Abnormal LFTs, elevated AST
-JESI on CKD 4
-CAD
s/p 2.5 mm Xience OM1 PCI 02/12/2019
s/p Xience prox and overlapping previously placed distal OM-1 05/17/2019
s/p 2.5 mm Xience OM1 PCI 01/20/21
NSTEMI, s/p complex MATT distal LM into LCx/OM1 3.0 x 22 mm Medtronics [place] drug-eluting stent and from distal LM into proximal LAD 2.75 x 18 mm Medtronic [place] drug-eluting stent 11/14/2024PAD
s/p R common femoral endarterectomy w/ patch angioplasty and covered R iliac stent 01/2024
s/p right SFA angioplasty and stent 04/2020 h/o COVID 19 w/ residual parenchymal scarring
-Acute on chronic ischemic cardiomyopathy with EF of 40% with regional wall motion abnormalities
-PAD
-HTN
-HLD
-DM2
-h/o Henoch-Sanna�nlein purpura
-Glaucoma
-Celiac compression syndrome s/p ESTIMATE CLERK for compression and dissected 2016
-h/o gastric bypass 2010
-h/o angioedema on ZAY inhibitors
-Aortic atherosclerosis
-h/o orthostasis on Terazosin
-h/o TIA 2016
-Iron deficiency anemia
Echo 08/06/2020: EF 64%. Mild LVH. Normal RV. Mild MAC with mild MR. No AI or . Trace TR. PAP 29 mmHg
Echo 01/19/2021: EF 55-60%, stage I diastolic dysfunction, trace MR, trace TR, PAP 21 mmHg
Echo 10/29/2024: EF 40-45%, Stage I diastolic dysfunction, mild inferolateral and inferior hypokinesis
Echo 11/14/2024: EF 50 to 55%. No significant valvular disease. No pericardial effusion.
Echo 05/07/2025: Study pending
Cardiac cath 11/01/2024: Left main 60% distal. LAD 40% ostial. Circumflex: Hazy 80% ostial, stents in OM1 with moderate diffuse ISR, smaller daughter branch of OM1 with 70% stenosis. RCA 60 to 70% ostial stenosis
Cardiac cath 11/14/2024: Successful complex percutaneous coronary artery intervention with one 3.0 x 22 mm Medtronics [place] drug-eluting stent from distal left main into left circumflex artery/OM1 and a second 2.75 x 18 mm Medtronic [place] drug-eluting
stent from distal left main into proximal LAD
Cardiac cath 05/08/25: Accelerated restenosis (ISR) with distal LM extending into ostial LAD (70-80%) and ostial LCx (95%), 60-70% stable ostial RCA stenosis.
-Acute postop blood loss anemia - s/p 2 pRBCS and cellsaver
-Acute postop thrombocytopenia
-Acute postop hypovolemia with subsequent hypervolemia
-Acute postop atelectasis/pulmonary insufficiency
-Acute postop somnolence with anesthesia, pt has hx of slow to awake from anesthesia (3 days)
-Acute postop hypernatremia
Discussed patient care with: Cardiology, Nursing, Respiratory Therapy, Pharmacy and Care Team
Subjective
-
Date of Service: May 18, 2025
Pt c/o mild incisional pain, otherwise feels well
Objective Data
-
PT 21.2 Sec (11.4-14.6) H 05/14/25 12:39
INR 1.81 05/14/25 12:39
APTT 52.1 Sec (23.4-35.0) H 05/14/25 12:39
Vital Signs
Vital Signs
Temp Pulse Resp BP Pulse Ox
97.9 F 61 15 122/49 95
05/18/25 03:00 05/18/25 03:30 05/18/25 03:30 05/18/25 03:00 05/18/25 02:00
CT Intake/Output/Weight
05/17/25 05/17/25 05/18/25
06:59 18:59 06:59
Intake Total 694.8 / 1278.9 665 / 1355 690 / 1355
Output Total 432 / 1172 240 / 240
Balance 262.8 / 106.9 425 / 1115 690 / 1115
SaO2: 95 (RA)
Physical Exam
-
General: Awake, Oriented and AOx3
Cardiovascular: Regular rate & rhythm, No Murmurs, No Rub and No Gallop
Respiratory: Decreased Breath Sounds (at bases, otherwise clear)
Sternum: Stable
Incision: Clean, Dry, Intact and Dressing Intact
Extremities: Other (+trace edema)
Data Reviewed
-
Lab Results: Results Reviewed
Medications: Active Meds Reviewed
Chest X-Ray: Report Reviewed and Image Reviewed
ECG: Report Reviewed and Image Reviewed
[2025-05-18 04:13] LABS: Hematocrit 24.8 % (37.0-47.0); Hemoglobin 8.0 g/dL (12.0-16.0); Mean Corp Hgb Conc. 32.3 g/dL (33.0-37.0); Mean Corpuscular Volume 86.7 fL (81.0-99.0); Platelet Count 165 10^3/uL (130-400); Red Cell Dist. Width 18.1 % (11.5-14.5)
[2025-05-18 04:27] LABS: Blood Urea Nitrogen 79 mg/dl (7-17); Calcium 8.2 mg/dl (8.4-10.2); Carbon Dioxide 27 mmol/L (22-30); Chloride 113 mmol/L (98-107); Estimated Creatinine Clearance 19 ml/min; Glucose 80 mg/dl (70-99); Magnesium 2.8 mg/dl (1.6-2.3); Potassium 3.5 mmol/L (3.5-5.1); Sodium 146 mmol/L (135-145); eGFR 21.62
[2025-05-18 06:26] LABS: Glucose - Point of Care 78 mg/dl (70-99)
[2025-05-18] MEDS: TYLENOL PO ×2 (06:27→14:58)
[2025-05-18] MEDS: KCL 270 MEQ IV (06:46)
--- NOTE | 2025-05-18 07:48 | W.PN.CARDCBS ---
Today's Communication / Plan
-
Usual postop care
Making progress
Impression / Plan
-
.
PCP: Dr. Carlton
Allopathic Doctor: Dr. VICKY Danielson
Impression:
Admitted with chest pain and NSTEMI 05/06/2025
NSTEMI, peak troponin 24.9
s/p CABG x 4 (In situ KESSLER to LAD, Ao to RSVG to OM to OM, Ao to RSVG to mid to distal RCA with ERNST exclusion 05/14/2025
JESI on CKD 4
Admission for acute HF and elevated troponin 11/26/24 until 11/28/2024
Admission for NSTEMI, MV CAD with distal LM into circumflex and distal LM into proximal LAD PCI, acute HF and JESI 10/29/2024 until 11/16/2024
Abnormal LFTs, elevated AST
CAD
s/p 2.5 mm Xience OM1 PCI 02/12/2019
s/p Xience prox and overlapping previously placed distal OM-1 05/17/2019
s/p 2.5 mm Xience OM1 PCI 01/20/21
NSTEMI, s/p complex MATT distal LM into LCx/OM1 3.0 x 22 mm Medtronics [place] drug-eluting stent and from distal LM into proximal LAD 2.75 x 18 mm Medtronic [place] drug-eluting stent 11/14/2024
PAD
s/p R common femoral endarterectomy w/ patch angioplasty and covered R iliac stent 01/2024
s/p right SFA angioplasty and stent 04/2020
Accelerated in-stent restenosis of the distal LM into the ostial LAD and ostial circumflex with stable 60 to 70% ostial RCA lesion by cardiac cath 05/08/2025
h/o COVID 19 w/ residual parenchymal scarring
HTN
HLD
DM2
h/o Henoch-Sanna�nlein purpura
Glaucoma
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
h/o gastric bypass 2010
h/o angioedema on ZAY inhibitors
Aortic atherosclerosis
h/o orthostasis on Terazosin
h/o TIA 2016
Iron deficiency anemia
Echo 08/06/2020: EF 64%. Mild LVH. Normal RV. Mild MAC with mild MR. No AI or . Trace TR. PAP 29 mmHg
Echo 01/19/2021: EF 55-60%, stage I diastolic dysfunction, trace MR, trace TR, PAP 21 mmHg
Echo 10/29/2024: EF 40-45%, Stage I diastolic dysfunction, mild inferolateral and inferior hypokinesis
Echo 11/14/2024: EF 50 to 55%. No significant valvular disease. No pericardial effusion.
Echo 05/07/2025: EF 40 to 45%, inferior and inferolateral hypokinesis, normal RV size and function, mild MR, compared to echo from 11/14/2024 the EF is now reduced
Cardiac cath 11/01/2024: Left main 60% distal. LAD 40% ostial. Circumflex: Hazy 80% ostial, stents in OM1 with moderate diffuse ISR, smaller daughter branch of OM1 with 70% stenosis. RCA 60 to 70% ostial stenosis
Cardiac cath 11/14/2024: Successful complex percutaneous coronary artery intervention with one 3.0 x 22 mm Medtronics [place] drug-eluting stent from distal left main into left circumflex artery/OM1 and a second 2.75 x 18 mm Medtronic [place] drug-eluting
stent from distal left main into proximal LAD
Cardiac cath 05/08/25: Accelerated restenosis (ISR) with distal LM extending into ostial LAD (70-80%) and ostial LCx (95%), 60-70% stable ostial RCA stenosis.
Plan:
-Medically complex 75-year-old female presenting with chest discomfort and non-STEMI with multivessel coronary artery disease status post distal left main into circumflex and proximal LAD PCI in October found to have accelerated restenosis with a distal
left main and stenting into the ostial LAD and ostial circumflex with stable 60-70% ostial RCA stenosis by cardiac cath 05/08/2025.
-s/p CABG x 4 (In situ KESSLER to LAD, Ao to RSVG to OM to OM, Ao to RSVG to mid to distal RCA with ERNST exclusion 05/14/2025
-Continue aspirin and Plavix for graft patency and for history of coronary stents in October 2024.
- Postoperative delirium improving
-Off Cardene. Blood pressures reasonably controlled on oral medications
- Creatinine 2.3 this morning
-Patient on room air. Chest x-ray with increased pulmonary vascular congestion, low inspiration volumes lower, left lower lobe atelectasis, pressure obscuration of right lateral costophrenic angle concerning for small right pleural effusion.
Encourage incentive spirometry
-in SR on review of tele, some PVCs and runs of NSVT. Patient resumed on amiodarone 05/17/2025
-continue post op care
- We will follow with you
Patient came to the ER yesterday with chest pain and initial troponin was 1.65 and has now trended up to 23.2 prompting cardiology consultation for NSTEMI. Patient had a prolonged admission from 10/29/2024 until 11/16/2024 for NSTEMI and cardiac cath
showed MV CAD. Patient was initially seen in consultation by CT surgery and there is consideration for CABG, but this was ultimately deferred due to JESI on CKD and patient instead had high risk PCI with stenting of the distal left main into the
circumflex and distal left main into the proximal LAD on 11/14/2024. Patient was discharged home and then readmitted 2 weeks later with acute HF and CKD. Patient was then doing well and had last seen Dr. Danielson in the office on 01/31/2025. 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
for her and she started that job last week. In the meantime patient called the office with chest pain on 04/23/2025 and was advised to go to the ER for evaluation given her complex CAD history, she ended up not going to the ER because she was
afraid she would miss her first day of work. Instead she was taking NTG SL several times a day for chest pain. Chest pain is described as being present on a daily basis and comes and goes throughout the day, it is a deep aching feeling and feels
similar to her previous [place] pain. She finally came to the ER last night because she ran out of her NTG SL tablets and the pharmacy would not refill her prescription. She is distressed because she only had 2 days at her new job before she had to
come to the ER and is now missing work. Despite this she is pain-free on heparin gtt and Nitropaste. Initial troponin is 1.65 and now up to 23.2.
Progress Note - Allopathic Doctor
Subjective
Date of Service: May 18, 2025
Awake and responsive to me this morning
Objective
Labs:
05/18/25 03:59
05/18/25 03:59
Labs
Hgb 8.0 g/dL (12.0-16.0) L 05/18/25 03:59
Hct 24.8 % (37.0-47.0) L 05/18/25 03:59
Plt Count 165 10^3/uL (130-400) 05/18/25 03:59
PT 21.2 Sec (11.4-14.6) H 05/14/25 12:39
INR 1.81 05/14/25 12:39
APTT 52.1 Sec (23.4-35.0) H 05/14/25 12:39
Sodium 146 mmol/L (135-145) H 05/18/25 03:59
Potassium 3.5 mmol/L (3.5-5.1) 05/18/25 03:59
BUN 79 mg/dl (7-17) H 05/18/25 03:59
Creatinine 2.3 mg/dL (0.6-1.0) H 05/18/25 03:59
Glucose 80 mg/dl (70-99) 05/18/25 03:59
Vital Signs and I&O:
Vital Signs
Temp Pulse Resp BP Pulse Ox
97.9 F 63 15 116/49 95
05/18/25 03:00 05/18/25 06:00 05/18/25 06:00 05/18/25 06:00 05/18/25 04:27
Vital Signs
Temp Pulse Resp BP Pulse Ox
97.9 F 63 15 116/49 95
05/18/25 03:00 05/18/25 06:00 05/18/25 06:00 05/18/25 06:00 05/18/25 04:27
Intake & Output
05/16/25 05/17/25 05/18/25 05/19/25
06:59 06:59 06:59 06:59
Intake Total 1511.4 / 1559.4 1233.9 / 1278.9 1385 / 1385
Output Total 1511 / 1551 1137 / 1172 540 / 540
Balance 0.4 / 8.4 96.9 / 106.9 845 / 845
Physical Exam
Physical Exam
����Physical Exam
���������������������General:��no apparent distress, not acutely ill
���������������������������Neck:��supple. no meningeal signs. normal psoterior pharynx
������������������������
���������������������������Heart:��s1/s2 regular rate and rhythm, no murmur. equal radial pulses.
��������������������������Lungs: ��no acute respiratory distress. clear bilaterally
����������������������Abdomen:�normal bowel sounds. not tender. no CVAT
��������������������������Neuro:��alert and oriented. no focal neurological deficits
������������������������������Skin: ��no rash
�����������������������Psychiatric:�well kept. interactive and cooperative
�����������������������Extremities:��no edema. no calf tenderness. negative homans. good distal pulses
��
�
--- NOTE | 2025-05-18 08:21 | W.PN.NEPH.PH ---
Today's Communication / Plan
-
Encourage p.o. fluid intake in setting of evolving hypernatremia
No dialysis need
Assessment/Plan
-
IMP:
NSTEMI
CHr CHFpEF
chronic ILD/fibrosis
JESI with CKD stage 4 (baseline Cr� 2.5)-follows Dr Cast
DM2
CAD hx of [place], hx of stents last in October 2024
HTN
DM
GERD
h/o ACEI angioedema
h/o Henoch-Schonlein purpura
Gastric bypass 2010
ALISHA, mild, with nocturnal hypoxemia
PAD, SFA stent Apr 2020
Plan:
A/w NSTEMI
Status post CABGx4 on 05/14/2025
Anemia persist
More conversational today appears to be in no distress
BPs stable off meds
[place] parameters reviewed, PAP in 30s,
Hypernatremia evolving needs to increase free water
Creatinine was at 2.3 baseline and non oliguric, weight slowly rising
Cortez dialysis catheter has been removed
d/w nursing
follow labs and wts
-
-
Date of Service: May 18, 2025
CC / HPI / ROS
-
Chief Complaint:
Chest pain shortness of breath
History of Present Illness:
Creatinine stable at 2.3
Hyponatremia volume
Status post four-vessel CABG 05/14/2025
Hemodynamically stable off meds
Hemoglobin down to 8
wt slightly up
Review of Systems:
Very lethargic today apparently patient was up all night y
no fever
Nonoliguric
Labs
-
Labs:
WBC 16.2 10^3/uL (4.8-10.8) H 05/18/25 03:59
RBC 2.86 10^6/uL (4.20-5.40) L 05/18/25 03:59
Hgb 8.0 g/dL (12.0-16.0) L 05/18/25 03:59
Hct 24.8 % (37.0-47.0) L 05/18/25 03:59
Plt Count 165 10^3/uL (130-400) 05/18/25 03:59
Sodium 146 mmol/L (135-145) H 05/18/25 03:59
Potassium 3.5 mmol/L (3.5-5.1) 05/18/25 03:59
Chloride 113 mmol/L (98-107) H 05/18/25 03:59
Carbon Dioxide 27 mmol/L (22-30) 05/18/25 03:59
BUN 79 mg/dl (7-17) H 05/18/25 03:59
Creatinine 2.3 mg/dL (0.6-1.0) H 05/18/25 03:59
eGFR 21.62 05/18/25 03:59
Glucose 80 mg/dl (70-99) 05/18/25 03:59
Calcium 8.2 mg/dl (8.4-10.2) L 05/18/25 03:59
Fpu-K-Egabcjqxmuc Pept 8100 pg/ml 05/06/25 16:21
Albumin 3.4 g/dl (3.5-5.0) L 05/10/25 05:29
Physical Exam
-
Vital Signs:
Vital Signs
Temp Pulse Resp BP Pulse Ox
97.9 F 63 15 116/49 95
05/18/25 03:00 05/18/25 06:00 05/18/25 06:00 05/18/25 06:00 05/18/25 04:27
Cardiovascular:: Regular rate and rhythm
Respiratory:: Bilateral: Coarse
Lung Excursion:: Normal
Abdomen:: Nontender and Soft
Bowel Sounds:: Decreased
Extremity Edema:: +1: Bilateral: (Central edema)
Cortez Catheter: No
[2025-05-18 08:32] LABS: Glucose - Point of Care 85 mg/dl (70-99)
[2025-05-18] MEDS: LIPITOR 80 MG PO (08:36)
[2025-05-18] MEDS: PLAVIX 75 MG PO (08:36)
[2025-05-18] MEDS: BACTROBAN 2% OINTMENT 1 APPLIC NASAL (08:36)
[2025-05-18] MEDS: PROTONIX 40 MG PO (08:37)
[2025-05-18] MEDS: SENOKOT 8.6 MG PO (08:37)
[2025-05-18] MEDS: LANTUS 0.24 UNITS SC (08:37)
[2025-05-18] MEDS: PACERONE 200 MG PO ×2 (08:37→20:48)
[2025-05-18] MEDS: LOW STRENGTH ASPIRIN 81 MG PO (08:37)
[2025-05-18] MEDS: LOPRESSOR 12.5 MG PO ×2 (08:37→20:48)
[2025-05-18] MEDS: ZETIA 10 MG PO (08:37)
--- NOTE | 2025-05-18 09:29 | PTCARENOTE ---
assumed care of pt from previous shift RN, sinus rhythm on tele w occasional + bigeminy and PACs, VSS, epicardial pacing wires insulated, + peripheral pulses, no edema noted. Lungs diminished, pox 92% on RA. +bs, poor appetite, voids spontaneously.
PIV x2 flush easily. Sugical sites stable. Pt repositioned Q2 hrs and PRN. plan of care reviewed w the pt and questions encouraged.
[2025-05-18] MEDS: NOVOLOG FLEXPEN SC ×3 (10:33→16:39)
[2025-05-18] MEDS: TYLENOL 650 MG PO (10:33)
[2025-05-18] MEDS: NSS IV (11:37)
--- NOTE | 2025-05-18 12:00 | W.PN.INTV ---
Today's Communication / Plan
Recommendations
- Incentive spirometry
- Increase activity as tolerated
- Tractor Trailer Truck Driver service will sign off once patient is transferred out of CVICU
Assessment
-
75-year-old female with history of coronary artery disease, acute NSTEMI due to in-stent restenosis, s/p CABG, left atrial appendage exclusion, POD # 4
Titrated off pressors per protocol, normal MAP, not requiring any pressors.
ECHO reviewed with mildly reduced ejection fraction
PA catheter removed
Management of chest tubes per primary service
Patient extubated, currently saturating well on room air. Work of breathing normal.
Chest x-ray suggestive of mild pulmonary vascular congestion, improving compared to prior study. In addition bibasilar atelectasis noted.
Known history of mild chronic fibrotic lung disease felt to be post-COVID, stable
Prior PFTs reviewed
Can add nebulizers if needed
Aspiration precautions
Encouraged incentive spirometry, OOB/ambulation/early mobility
Advance diet as tolerated following extubation
GI prophylaxis: Protonix
Monitor critical I/O's
Cortez/chest tube output
Hb/platelets postoperatively, mild drift
Trend CBC for now
Can transfuse if indicated for Hb <7, plt <50 in surgical patients
DVT prophylaxis including SCDs
Insulin per protocol
Other medical diagnoses:
- Chronic pulmonary fibrosis with restrictive lung disease, felt to be post COVID sequela in 2019. Follows up with Dr. Fannie Apple at [facility] pulmonary clinic. Stable.
- CKD-IV. Currently nonoliguric, left neck trialysis catheter placed, currently being monitored off renal replacement therapy. Nephrology service on case
- CAD, s/p PCI 10/2024 with in-stent restenosis
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
- GERD
- HTN, HLD
- DM
- History of glaucoma
- TIA
- Peripheral vascular disease, SFA balloon angioplasty history
- History of gastric bypass surgery
- Obstructive sleep apnea
- History of HSP/IgA vasculitis
- Acute metabolic encephalopathy. Concern for delirium. Appears to be more awake, alert, briefly makes eye contact.
Critical Care time ICU mins -38- The patient is admitted for acute critical illness for the treatment of vital organ failure and/or prevention of further life-threatening conditions. Total care includes time spent in review of history, physical
exam, medications, hemodynamic/ventilator parameters, laboratory data, imaging and discussion with house staff, pharmacy, respiratory therapy, tin plater, and nursing
Data:
IABP placement 04/2025: Via left common femoral artery access
[facility] 04/2025: 1. Severe rapid/accelerated in-stent restenosis of distal LM extending into ostial LAD and LCX after recently placed stents on November 14, 2024.
2. Severely elevated LVEDP in setting of severe hypertension.
ECHO 04/2025: 1. Left ventricular systolic function is mildly reduced; LVEF 40-45% by visual estimate. Inferior and inferolateral hypokinesis.
2. Right ventricular size and systolic function are within normal limits.
3. Mild mitral valve regurgitation.
4. Compared to prior study dated 11/14/2024 which was directly reviewed, left ventricular systolic function appears less vigorous, previously LVEF estimated at 53%.
CT Chest 04/2025: Widespread bilateral prominent interstitial markings likely representing chronic interstitial fibrosis.
Small nonspecific mediastinal lymph nodes.
Cardiomegaly with extensive coronary artery calcifications.
Small hiatal hernia.
[facility] 10/2024: 1. Successful complex percutaneous coronary artery intervention with one 3.0 x 22 mm Medtronics [place] drug-eluting stent from distal left main into left circumflex artery/OM1 and a second 2.75 x 18 mm Medtronic [place] drug-eluting stent
from distal left main into proximal LAD, postdilated using IVUS guidance with a 2.75 x 15 mm NC balloon at 16 rock distally in the LAD and 3.5 x 8 mm NC balloon at 20 rock in the left main and a 3.0 x 15 mm NC balloon at 18 rock in OM1 with an
excellent angiographic result.
Spirometry 04/2025: Spirometry not suggestive of any obstructive lung disease. Pulmonary Function Testing suggestive of mild restrictive lung disease with FEV1 was 85% of predicted and TLC reduced at 60% of predicted. Severely reduced diffusion
capacity noted. No significant bronchodilator response noted.
Subjective Dataa
Subjective Data
Date of Service:
Date of Service: May 18, 2025
Subjective:
Patient comfortably sitting in bed in no acute distress.
Review of Systems
Genitourinary: Other (Review of system is limited due to still residual encephalopathy.)
Objective Data
Data Reviewed
Vital Signs / I&O / Oxygen:
Vital Signs
Temp Pulse Resp BP Pulse Ox
98.2 F 57 18 131/58 92
05/18/25 08:00 05/18/25 09:00 05/18/25 09:00 05/18/25 09:00 05/18/25 09:46
Intake and Output
05/17/25 05/18/25 05/19/25
06:59 06:59 06:59
Intake Total 1233.9 / 1278.9 1385 / 1385 100 / 100
Output Total 1137 / 1172 540 / 540
Balance 96.9 / 106.9 845 / 845 100 / 100
SaO2 [P-SIMV] 99
SaO2 92
Nasal Cannula flow liters per 2
minute
Physical Exam
General: Comfortable
HEENT: Normocephalic
Respiratory: Clear, Crackles (Few basilar crackles on exam) and Non-Labored Respirations
GI: Soft and Non Distended
Neurology: Awake, Alert and Other (Not fully oriented)
Skin: Warm
Labs/Micro/Reports
Lab Data
05/18/25 03:59
05/18/25 03:59
Laboratory Results
05/17/25
12:09
pH 7.42
pCO2 30 L
pO2 101
HCO3 19.5 L
O2 Delivery Level
Microbiology
05/14/25 02:07 Urine Urine Culture - Final
Enterococcus faecalis
--- NOTE | 2025-05-18 13:00 | PTCARENOTE ---
VSS, pt tolerated PT/OT, sitting OOB in chair. Poor appetite.
[2025-05-18 15:26] LABS: Glucose - Point of Care 88 mg/dl (70-99)
[2025-05-18 16:35] LABS: Glucose - Point of Care 85 mg/dl (70-99)
[2025-05-18] MEDS: NOVOLOG FLEXPEN 5 UNITS SC (17:25)
[2025-05-18 20:46] LABS: Glucose - Point of Care 101 mg/dl (70-99)
[2025-05-18] MEDS: LANTUS SC (20:46)
[2025-05-18] MEDS: SENOKOT PO (20:48)
--- NOTE | 2025-05-18 21:15 | PTCARENOTE ---
Assumed care of pt from dayshift RN. Walking rounds completed. Pt oriented to person, place, and time. Slow speech. BECKER appropriately. Pt c/o left wrist feeling weak. Left wrist hand grasp weak. SR on the tele monitor. HR 60s. Temporary epicardial
v-wire intact and insulated. BP stable. B/L radial pulses palpable. B/L DP pulses weak on palpation. +2 generalized edema. Pt on RA. POX 93%. Lung sounds diminished throughout. Deep breathing and IS encouraged. Occasional non-productive cough.
Abdomen round. +BSx4. Pt incontinent of stool x2. Due to void for this RN. Surgical / other wounds as documented in worklist. PIV x2 intact. Pt repositioned Q2 as documented. See worklist for full nursing assessment and interventions. Call duran
within reach and pt rings appropriately.
[2025-05-18] MEDS: TYLENOL 975 MG PO (22:26)
[2025-05-19] VITALS (12 sets, daily range): BP systolic 129–176; BP diastolic 52–75; BMI 28.9
[2025-05-19 00:25] LABS: Glucose - Point of Care 74 mg/dl (70-99)
[2025-05-19] MEDS: NOVOLOG FLEXPEN-LOW RESISTANCE SC ×4 (00:26→23:47)
--- NOTE | 2025-05-19 00:29 | W.PN.CT ---
Today's Communication / Plan
-
Plan:
-No major issues overnight. Hemodynamically and neurologically intact
-Pt is fully awake, alert and oriented x 3
-Holding narcotics/sedatives
-Creatinine at baseline and voiding, nonoliguric. RIJ dialysis catheter d/c'd on 05/17 without incident
-Acute postop hyponatremia has resolved with d5w
-Hold diuresis today
-Wound care is following left thigh blister and stage 1 sacral pressure injury
-Encourage use of IS
-OOB into chair/Ambulate
-PT/OT evaluating for home vs acute rehab
Assessment / Plan
-
Impression:
-s/p CABGx 4 (In situ KESSLER to LAD, Ao to RSVG to OM to OM, Ao to RSVG to mid to distal RCA); Left atrial appendage exclusion by Dr. Cline on 05/14/25, pod#5
-Intraop REAGAN: LVEF preop was approximately 40% with regional wall motion abnormalities towards the lateral inferior wall. Following surgery, EF essentially normalized and regional wall motion normalized as well. Her left atrial appendage was
verified to be free of any thrombus or debris preoperatively and found to be totally occlusive postoperatively.
-Admitted with chest pain and NSTEMI 05/06/2025
-NSTEMI, troponin up to 24.9
-Admission for acute HF and elevated troponin 11/26/24 until 11/28/2024
-Admission for NSTEMI, MV CAD with distal LM into circumflex and distal LM into proximal LAD PCI, acute HF and JESI 10/29/2024 until 11/16/2024
-Abnormal LFTs, elevated AST
-JESI on CKD 4
-CAD
s/p 2.5 mm Xience OM1 PCI 02/12/2019
s/p Xience prox and overlapping previously placed distal OM-1 05/17/2019
s/p 2.5 mm Xience OM1 PCI 01/20/21
NSTEMI, s/p complex MATT distal LM into LCx/OM1 3.0 x 22 mm Medtronics [place] drug-eluting stent and from distal LM into proximal LAD 2.75 x 18 mm Medtronic [place] drug-eluting stent 11/14/2024PAD
s/p R common femoral endarterectomy w/ patch angioplasty and covered R iliac stent 01/2024
s/p right SFA angioplasty and stent 04/2020 h/o COVID 19 w/ residual parenchymal scarring
-Acute on chronic ischemic cardiomyopathy with EF of 40% with regional wall motion abnormalities
-PAD
-HTN
-HLD
-DM2
-h/o Henoch-Sanna�nlein purpura
-Glaucoma
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
-h/o gastric bypass 2010
-h/o angioedema on ZAY inhibitors
-Aortic atherosclerosis
-h/o orthostasis on Terazosin
-h/o TIA 2016
-Iron deficiency anemia
Echo 08/06/2020: EF 64%. Mild LVH. Normal RV. Mild MAC with mild MR. No AI or . Trace TR. PAP 29 mmHg
Echo 01/19/2021: EF 55-60%, stage I diastolic dysfunction, trace MR, trace TR, PAP 21 mmHg
Echo 10/29/2024: EF 40-45%, Stage I diastolic dysfunction, mild inferolateral and inferior hypokinesis
Echo 11/14/2024: EF 50 to 55%. No significant valvular disease. No pericardial effusion.
Echo 05/07/2025: Study pending
Cardiac cath 11/01/2024: Left main 60% distal. LAD 40% ostial. Circumflex: Hazy 80% ostial, stents in OM1 with moderate diffuse ISR, smaller daughter branch of OM1 with 70% stenosis. RCA 60 to 70% ostial stenosis
Cardiac cath 11/14/2024: Successful complex percutaneous coronary artery intervention with one 3.0 x 22 mm Medtronics [place] drug-eluting stent from distal left main into left circumflex artery/OM1 and a second 2.75 x 18 mm Medtronic [place] drug-eluting
stent from distal left main into proximal LAD
Cardiac cath 05/08/25: Accelerated restenosis (ISR) with distal LM extending into ostial LAD (70-80%) and ostial LCx (95%), 60-70% stable ostial RCA stenosis.
-Acute postop blood loss anemia - s/p 2 pRBCS and cellsaver
-Acute postop thrombocytopenia
-Acute postop hypovolemia with subsequent hypervolemia
-Acute postop atelectasis/pulmonary insufficiency
-Acute postop somnolence with anesthesia, pt has hx of slow to awake from anesthesia (3 days)
-Acute postop hypernatremia
-Acute postop left thigh blister/stage 2 pressure injury
-Acute postop sacral injury/ stage 1 pressure injury
Discussed patient care with: Cardiology, Nursing, Respiratory Therapy, Pharmacy and Care Team
Subjective
-
Date of Service: May 19, 2025
Pt c/o mild incisional pain, otherwise feels well
Objective Data
-
PT 21.2 Sec (11.4-14.6) H 05/14/25 12:39
INR 1.81 05/14/25 12:39
APTT 52.1 Sec (23.4-35.0) H 05/14/25 12:39
Vital Signs
Vital Signs
Temp Pulse Resp BP Pulse Ox
98.5 F 61 16 134/58 94
05/19/25 00:22 05/19/25 00:22 05/19/25 00:22 05/19/25 00:22 05/19/25 00:22
CT Intake/Output/Weight
05/18/25 05/18/25 05/19/25
06:59 18:59 06:59
Intake Total 720 / 1385 200 / 200
Output Total 300 / 540 400 / 400
Balance 420 / 845 -200 / -200
SaO2: 94 (RA)
Physical Exam
-
General: Awake, Oriented and AOx3
Cardiovascular: Regular rate & rhythm, No Murmurs, No Rub and No Gallop
Respiratory: Decreased Breath Sounds (at bases, otherwise clear)
Sternum: Stable
Incision: Clean, Dry, Intact and Dressing Intact
Extremities: Other (+trace edema)
Data Reviewed
-
Lab Results: Results Reviewed
Medications: Active Meds Reviewed
Chest X-Ray: Report Reviewed and Image Reviewed
ECG: Report Reviewed and Image Reviewed
--- NOTE | 2025-05-19 00:46 | PTCARENOTE ---
Pt reassessed. Neuro status unchanged. Pt SR to sinus alfredito on the tele monitor. HR 59-60s. BP stable. Pt is 94% on RA. Pt denies urge to void or bladder discomfort. Bladder scanned for 274 ml. Repositioned as documented. No c/o pain at this time.
Call duran within reach.
[2025-05-19] MEDS: TYLENOL 975 MG PO ×3 (01:00→21:40)
[2025-05-19 04:13] LABS: Hematocrit 27.8 % (37.0-47.0); Hemoglobin 8.9 g/dL (12.0-16.0); Mean Corp Hgb Conc. 32.0 g/dL (33.0-37.0); Mean Corpuscular Volume 87.1 fL (81.0-99.0); Platelet Count 177 10^3/uL (130-400); Red Cell Dist. Width 18.3 % (11.5-14.5)
[2025-05-19 04:28] LABS: Blood Urea Nitrogen 75 mg/dl (7-17); Calcium 8.0 mg/dl (8.4-10.2); Carbon Dioxide 26 mmol/L (22-30); Chloride 113 mmol/L (98-107); Estimated Creatinine Clearance 19 ml/min; Glucose 84 mg/dl (70-99); Magnesium 2.7 mg/dl (1.6-2.3); Potassium 3.9 mmol/L (3.5-5.1); Sodium 144 mmol/L (135-145); eGFR 21.62
--- NOTE | 2025-05-19 04:49 | PTCARENOTE ---
Pt reassessed. Neuro status unchanged. Pt SR to sinus alfredito on the tele monitor. HR 58-60s. BP stable. Pt is 92% on RA. Pt bladder scanned for >400ml. Pt OOB to void on commode. Pt able to void. +BM. Repositioned back into bed. No c/o pain at this
time. Labs drawn and sent. Call duran within reach.
[2025-05-19 05:05] LABS: Glucose - Point of Care 98 mg/dl (70-99)
[2025-05-19] MEDS: KCL 270 MEQ IV (05:28)
[2025-05-19] MEDS: KCL 40 MEQ PO (06:33)
--- NOTE | 2025-05-19 06:41 | PTCARENOTE ---
Pt c/o burning w/ IV potassium + D5W. CT ALISON aware. Infusion dc'd. PO KCl administered, see MAR.
[2025-05-19 08:17] LABS: Glucose - Point of Care 134 mg/dl (70-99)
--- NOTE | 2025-05-19 08:48 | W.PN.NEPH.PH ---
Today's Communication / Plan
-
Follow BMP
Holding diuretic
Creatinine at baseline
Hemodynamically stable off antihypertensives
Assessment/Plan
-
IMP:
NSTEMI
CHr CHFpEF
chronic ILD/fibrosis
JESI with CKD stage 4 (baseline Cr� 2.5)-follows Dr Cast
DM2
CAD hx of [place], hx of stents last in October 2024
HTN
DM
GERD
h/o ACEI angioedema
h/o Henoch-Schonlein purpura
Gastric bypass 2010
ALISHA, mild, with nocturnal hypoxemia
PAD, SFA stent Apr 2020
Plan:
A/w NSTEMI
Status post CABGx4 on 05/14/2025
Anemia persist
More conversational today appears to be in no distress
BPs stable off meds
K repletion
Hypernatremia evolving needs to increase free water
Creatinine was at 2.3 baseline and non oliguric,
I do not think diuretics are necessary today
d/w CT staff
follow labs and wts
-
-
Date of Service: May 19, 2025
CC / HPI / ROS
-
Chief Complaint:
Chest pain shortness of breath
History of Present Illness:
Creatinine stable at 2.3
Hypernatremia noted
Status post four-vessel CABG 05/14/2025
Hemodynamically stable off meds
Hemoglobin at around 8.9
Review of Systems:
Interactive and eating breakfast
no fever
Nonoliguric
No shortness of breath
Reproducible pleuritic chest pain with cough
Labs
-
Labs:
WBC 11.6 10^3/uL (4.8-10.8) H 05/19/25 03:56
RBC 3.19 10^6/uL (4.20-5.40) L 05/19/25 03:56
Hgb 8.9 g/dL (12.0-16.0) L 05/19/25 03:56
Hct 27.8 % (37.0-47.0) L 05/19/25 03:56
Plt Count 177 10^3/uL (130-400) 05/19/25 03:56
Sodium 144 mmol/L (135-145) 05/19/25 03:56
Potassium 3.9 mmol/L (3.5-5.1) 05/19/25 03:56
Chloride 113 mmol/L (98-107) H 05/19/25 03:56
Carbon Dioxide 26 mmol/L (22-30) 05/19/25 03:56
BUN 75 mg/dl (7-17) H 05/19/25 03:56
Creatinine 2.3 mg/dL (0.6-1.0) H 05/19/25 03:56
eGFR 21.62 05/19/25 03:56
Glucose 84 mg/dl (70-99) 05/19/25 03:56
Calcium 8.0 mg/dl (8.4-10.2) L 05/19/25 03:56
Bmc-M-Jxaxqcyexkk Pept 8100 pg/ml 05/06/25 16:21
Albumin 3.4 g/dl (3.5-5.0) L 05/10/25 05:29
Physical Exam
-
Vital Signs:
Vital Signs
Temp Pulse Resp BP Pulse Ox
97.9 F 60 16 129/53 94
05/19/25 03:51 05/19/25 06:00 05/19/25 03:51 05/19/25 03:51 05/19/25 04:18
Cardiovascular:: Regular rate and rhythm
Respiratory:: Bilateral: Coarse
Lung Excursion:: Normal
Abdomen:: Nontender and Soft
Bowel Sounds:: Decreased
Extremity Edema:: +1: Bilateral: (Central edema)
Cortez Catheter: No
[2025-05-19] MEDS: LIPITOR 80 MG PO (08:50)
[2025-05-19] MEDS: PROTONIX 40 MG PO (08:50)
[2025-05-19] MEDS: PACERONE 200 MG PO ×2 (08:50→20:11)
[2025-05-19] MEDS: ZETIA 10 MG PO (08:50)
[2025-05-19] MEDS: TOPROL XL 25 MG PO (08:50)
[2025-05-19] MEDS: PLAVIX 75 MG PO (08:51)
[2025-05-19] MEDS: LOW STRENGTH ASPIRIN 81 MG PO (08:51)
[2025-05-19] MEDS: SODIUM BICARBONATE 650 MG PO (08:51)
[2025-05-19] MEDS: SENOKOT 8.6 MG PO (08:51)
[2025-05-19] MEDS: NOVOLOG FLEXPEN SC ×2 (08:51→18:52)
[2025-05-19] MEDS: LANTUS 0.24 UNITS SC ×2 (08:54→20:11)
[2025-05-19] MEDS: NSS IV (13:09)
[2025-05-19 13:29] LABS: Glucose - Point of Care 206 mg/dl (70-99)
[2025-05-19] MEDS: NOVOLOG FLEXPEN-LOW RESISTANCE 300 UNITS SC (14:40)
[2025-05-19] MEDS: NOVOLOG FLEXPEN 5 UNITS SC (14:41)
[2025-05-19 18:03] LABS: Glucose - Point of Care 120 mg/dl (70-99)
[2025-05-19] MEDS: SENOKOT PO (19:56)
[2025-05-19 20:10] LABS: Glucose - Point of Care 184 mg/dl (70-99)
--- NOTE | 2025-05-19 20:30 | PTCARENOTE ---
Patient received from RN @ 1900. patient lying in bed w/ call duran in reach. Patient states they are comfortable. AOx3. SR on monitor. BP 172/65 HR 62. Heart sounds audible. +1 lower leg edema noted. radial and pedal pulses present. POX
97% RA. IS 500. Deep breathing and coughing encouraged. Bowel sounds normoactive. Voiding clear yellow urine. PIV patent and intact. Sternal incision well approximated ESTHER. Right and left groin puncture well approximated ESTHER. Right and left
leg incision well approximated ESTHER. Left thigh blister dry and intact. See worklist for more details.
[2025-05-19 23:47] LABS: Glucose - Point of Care 95 mg/dl (70-99)
[2025-05-20] VITALS (9 sets, daily range): BP systolic 143–180; BP diastolic 53–71; PULSE 67; O2SAT 97; BMI 29.0
--- NOTE | 2025-05-20 00:02 | PTCARENOTE ---
Patient reassessed. SR on monitor. BP in 170's, CT PA Ed aware. HR 62 POX 96% RA.
[2025-05-20] MEDS: APRESOLINE 10 MG IV (00:19)
[2025-05-20] MEDS: ULTRAM 25 MG PO (01:22)
--- NOTE | 2025-05-20 04:19 | W.PN.CT ---
Today's Communication / Plan
-
Plan:
-No major issues overnight. Hemodynamically and neurologically intact
-Pt finally awoke from anesthesia on POD#2. Currently fully awake, alert and oriented x 3
-Holding narcotics/sedatives
-Creatinine at baseline and voiding, nonoliguric. RIJ dialysis catheter d/c'd on 05/17 without incident
-Acute postop hyponatremia has resolved with d5w
-Mg 2.7, mag oxide d/c'd
-Hold diuresis today
-Noted to be hypertensive overnight with SBP 180's necessitating IV Hydralazine, unable to increase BB given current bradycardia, will add Norvasc
-Wound care is following left thigh blister and stage 1 sacral pressure injury
-F/U 2-view cxr
-Encourage use of IS
-OOB into chair/Ambulate
-PT/OT evaluating, recommend acute rehab, will consult Physiatry
Assessment / Plan
-
Impression:
-s/p CABGx 4 (In situ KESSLER to LAD, Ao to RSVG to OM to OM, Ao to RSVG to mid to distal RCA); Left atrial appendage exclusion by Dr. Cline on 05/14/25, pod#6
-Intraop REAGAN: LVEF preop was approximately 40% with regional wall motion abnormalities towards the lateral inferior wall. Following surgery, EF essentially normalized and regional wall motion normalized as well. Her left atrial appendage was
verified to be free of any thrombus or debris preoperatively and found to be totally occlusive postoperatively.
-Admitted with chest pain and NSTEMI 05/06/2025
-NSTEMI, troponin up to 24.9
-Admission for acute HF and elevated troponin 11/26/24 until 11/28/2024
-Admission for NSTEMI, MV CAD with distal LM into circumflex and distal LM into proximal LAD PCI, acute HF and JESI 10/29/2024 until 11/16/2024
-Abnormal LFTs, elevated AST
-JESI on CKD 4
-CAD
s/p 2.5 mm Xience OM1 PCI 02/12/2019
s/p Xience prox and overlapping previously placed distal OM-1 05/17/2019
s/p 2.5 mm Xience OM1 PCI 01/20/21
NSTEMI, s/p complex MATT distal LM into LCx/OM1 3.0 x 22 mm Medtronics [place] drug-eluting stent and from distal LM into proximal LAD 2.75 x 18 mm Medtronic [place] drug-eluting stent 11/14/2024PAD
s/p R common femoral endarterectomy w/ patch angioplasty and covered R iliac stent 01/2024
s/p right SFA angioplasty and stent 04/2020 h/o COVID 19 w/ residual parenchymal scarring
-Acute on chronic ischemic cardiomyopathy with EF of 40% with regional wall motion abnormalities
-PAD
-HTN
-HLD
-DM2
-h/o Henoch-Sanna�nlein purpura
-Glaucoma
-Celiac compression syndrome s/p MAINTENANCE MECHANIC ELEVATORS for compression and dissected 2016
-h/o gastric bypass 2010
-h/o angioedema on ZAY inhibitors
-Aortic atherosclerosis
-h/o orthostasis on Terazosin
-h/o TIA 2016
-Iron deficiency anemia
Echo 08/06/2020: EF 64%. Mild LVH. Normal RV. Mild MAC with mild MR. No AI or . Trace TR. PAP 29 mmHg
Echo 01/19/2021: EF 55-60%, stage I diastolic dysfunction, trace MR, trace TR, PAP 21 mmHg
Echo 10/29/2024: EF 40-45%, Stage I diastolic dysfunction, mild inferolateral and inferior hypokinesis
Echo 11/14/2024: EF 50 to 55%. No significant valvular disease. No pericardial effusion.
Echo 05/07/2025: Study pending
Cardiac cath 11/01/2024: Left main 60% distal. LAD 40% ostial. Circumflex: Hazy 80% ostial, stents in OM1 with moderate diffuse ISR, smaller daughter branch of OM1 with 70% stenosis. RCA 60 to 70% ostial stenosis
Cardiac cath 11/14/2024: Successful complex percutaneous coronary artery intervention with one 3.0 x 22 mm Medtronics [place] drug-eluting stent from distal left main into left circumflex artery/OM1 and a second 2.75 x 18 mm Medtronic [place] drug-eluting
stent from distal left main into proximal LAD
Cardiac cath 05/08/25: Accelerated restenosis (ISR) with distal LM extending into ostial LAD (70-80%) and ostial LCx (95%), 60-70% stable ostial RCA stenosis.
-Acute postop blood loss anemia - s/p 2 pRBCS and cellsaver
-Acute postop thrombocytopenia
-Acute postop hypovolemia with subsequent hypervolemia
-Acute postop atelectasis/pulmonary insufficiency
-Acute postop somnolence with anesthesia, pt has hx of slow to awake from anesthesia (3 days)
-Acute postop hypernatremia
-Acute postop left thigh blister/stage 2 pressure injury
-Acute postop sacral injury/ stage 1 pressure injury
Discussed patient care with: Cardiology, Nursing, Respiratory Therapy, Pharmacy and Care Team
Subjective
-
Date of Service: May 20, 2025
Pt c/o mild incisional pain, otherwise feels well
Objective Data
-
Lab Results
05/19/25 03:56
PT 21.2 Sec (11.4-14.6) H 05/14/25 12:39
INR 1.81 05/14/25 12:39
APTT 52.1 Sec (23.4-35.0) H 05/14/25 12:39
Vital Signs
Vital Signs
Temp Pulse Resp BP Pulse Ox
97.9 F 61 18 173/69 96
05/20/25 00:01 05/20/25 00:00 05/20/25 00:01 05/19/25 23:57 05/20/25 00:01
CT Intake/Output/Weight
05/19/25 05/19/25 05/20/25
06:59 18:59 06:59
Output Total 500 / 900 1150 / 1150
Balance -500 / -700 -1150 / -1150
SaO2: 96 (RA)
Physical Exam
-
General: Awake, Oriented and AOx3
Cardiovascular: Regular rate & rhythm, No Murmurs, No Rub and No Gallop
Respiratory: Decreased Breath Sounds (at bases, otherwise clear)
Sternum: Stable
Incision: Clean, Dry, Intact and Dressing Intact
Extremities: Other (+trace edema)
Data Reviewed
-
Lab Results: Results Reviewed
Medications: Active Meds Reviewed
Chest X-Ray: Report Reviewed and Image Reviewed
ECG: Report Reviewed and Image Reviewed
--- NOTE | 2025-05-20 05:10 | PTCARENOTE ---
Patient reassessed. SR/sinus bradycardia on monitor. BP 147/58 HR 62 POX 94% RA. Labs obtained.
[2025-05-20] MEDS: NOVOLOG FLEXPEN-LOW RESISTANCE SC (05:22)
[2025-05-20] MEDS: TYLENOL 975 MG PO (05:23)
[2025-05-20 05:24] LABS: Glucose - Point of Care 82 mg/dl (70-99)
[2025-05-20 05:47] LABS: Blood Urea Nitrogen 64 mg/dl (7-17); Calcium 8.3 mg/dl (8.4-10.2); Carbon Dioxide 26 mmol/L (22-30); Chloride 113 mmol/L (98-107); Estimated Creatinine Clearance 20 ml/min; Glucose 69 mg/dl (70-99); Magnesium 2.7 mg/dl (1.6-2.3); Potassium 4.4 mmol/L (3.5-5.1); Sodium 143 mmol/L (135-145); eGFR 22.81
--- NOTE | 2025-05-20 08:45 | PTCARENOTE ---
Assumed care of patient at 0700. Pt is awake, alert, and oriented. No complaints of pain at this time. Pt remains SR with HR 60. BP 154/64 MAP 93. Epicardial V wire insulated. Pulse oximetry 96% on room air. Pt with poor appetite. Midsternal
incision approximated and BAKERY MANAGER. Bilateral groin punctures and leg incisions approximated and ESTHER. Pt working with PT at this time.
[2025-05-20] MEDS: SODIUM BICARBONATE 650 MG PO (09:03)
[2025-05-20] MEDS: LOW STRENGTH ASPIRIN 81 MG PO (09:03)
[2025-05-20] MEDS: NORVASC 5 MG PO (09:03)
[2025-05-20] MEDS: PLAVIX 75 MG PO (09:03)
[2025-05-20] MEDS: PACERONE 200 MG PO (09:03)
[2025-05-20] MEDS: PROTONIX 40 MG PO (09:04)
[2025-05-20] MEDS: LIPITOR 80 MG PO (09:04)
[2025-05-20] MEDS: TOPROL XL 25 MG PO (09:04)
[2025-05-20] MEDS: ZETIA 10 MG PO (09:04)
[2025-05-20] MEDS: LANTUS 0.24 UNITS SC (09:05)
[2025-05-20] MEDS: SENOKOT PO (09:05)
[2025-05-20 09:08] LABS: Glucose - Point of Care 79 mg/dl (70-99)
--- NOTE | 2025-05-20 09:28 | PN.DE.MGMTRT ---
Insulin Management
- -
05/20/2025: Diabetes Management Follow up
Patient admitted 05/06 with chest pain. 05/08 had cardiac cath, 05/10 had cath with balloon pump insertion.
PMH: Chronic HFpEF, diabetes, CAD s/p multiple stents 11/18, HTN, HCL, CKD 4, PVD, pneumonia. Patient known to diabetes team from previous admission. Prior to admission was taking Basaglar 24 units BID with 5 units NovoLog AC. A1C 10.4%, cr
2.5-->2.2, eGFR 22.81.
Patient awake, alert oriented, sitting up in chair, offers no complaints, able to discuss diabetes care. POD #6 s/p CABG x 4.
Transitioned from Critical care glycemic protocol insulin infusion 05/16 @ HS.
Received Lantus 24 units @ hs, FBG 69 V, 82 POC this AM. premeal range yesterday was 120 to 184
Will reduce Lantus to 22 units. Cont AC NovoLog 5 units and low corrective
Discussed with nurse. Will cont to follow. Pt has a working glucose meter with enough supplies at home.
Diabetes History
- -
Type of Diabetes: 2 requiring insulin
Pre-Admission Diabetes Regimen
05/20/25
04:54
Creatinine 2.2 H
Insulin Pump Settings
IP Diabetes Regimen
05/19/25 05/19/25 05/19/25
13:28 18:02 20:08
Glucose
POC Glucose 206 H 120 H 184 H
05/19/25 05/20/25 05/20/25
23:45 04:54 05:21
Glucose 69 L
POC Glucose 95 82
05/20/25
09:06
Glucose
POC Glucose 79
Patient Education
[2025-05-20] MEDS: ULTRAM 50 MG PO (10:32)
[2025-05-20] MEDS: NOVOLOG FLEXPEN 5 UNITS SC (10:33)
[2025-05-20] MEDS: NSS IV (10:57)
--- NOTE | 2025-05-20 11:22 | W.DCSUMMARY ---
Discharge Summary
Discharge Data
Date of Admission: 05/06/25
Date of Discharge: 05/20/25
Total time spent discharging patient (in min): 45
-
Pending Results: No
Hospital Course
Primary care physician:
Dr. Isaak Carlton
Outpatient telephonic rn:
Dr. VICKY Danielson
Inpatient consultants:
DCA, piano mechanic apprentice, nephrology
Procedures:
1. CABGx 4 (In situ KESSLER to LAD, Ao to RSVG to OM to OM, Ao to RSVG to mid to distal RCA); Left atrial appendage exclusion by Dr. Cline on 05/14/25
Primary Diagnosis:
1. Multivessel Coronary Artery Disease with early in-stent restenosis and NSTEMI
Secondary Diagnoses:
-Acute on chronic ischemic cardiomyopathy with EF of 40% with regional wall motion abnormalities
-PAD
-HTN
-HLD
-JESI on CKD 4
-CAD
-Acute postop blood loss anemia - s/p 2 pRBCS and cellsaver
-Acute postop thrombocytopenia
-Acute postop hypovolemia with subsequent hypervolemia
-Acute postop atelectasis/pulmonary insufficiency
-Acute postop somnolence with anesthesia, pt has hx of slow to awake from anesthesia (3 days)
-Acute postop hypernatremia
HPI: 75-year-old female who recently underwent a complex PCI to the left main back in October 2024. She did well from that procedure but then presented to the hospital with an NSTEMI was found to have early in-stent restenosis of the left main areas
with a very tight lesion in the proximal circumflex. Given her presentation, multidisciplinary team discussion across the system was to move forward with high risk CABG surgery in spite of her poor renal function and moderate pulmonary disease. She
was taken to the OR on 05/[address] Cline
Hospital course:
Patient initially presented due to 05/17 with complaints of chest pain relieved with sublingual nitro. She was found to have elevated troponins and was started on a heparin drip. Left heart cath revealed in-stent stenosis and CT surgery was
consulted. Preoperative workup was started and patient was taken to the CVOR on 05/14. Postprocedure, she returned to the CVICU for recovery on dobutamine, Cardene, Precedex, and insulin infusions. A left IJ dialysis catheter was placed
preoperatively for possible dialysis. She was given IV fluid for a low cardiac index and Precedex was turned off. Patient was very slow to wake however she was extubated on 05/[address] head did not show any acute changes. On
05/16 postoperative day 2 dobutamine was weaned off and Cardene was maintained. Patient's hemoglobin was noted to be 7.5 and was given 1 unit of packed red blood cells followed with 40 mg of IV Lasix. All narcotics and sedate of medications were
placed on hold. On 05/17 postoperative day 3 patient was becoming more interactive and oral medications were resumed. Cardene was weaned off and [place], [place], and [place] was removed. Physical therapy was consulted and wound care was consulted for
a left thigh blister. Due to the patient's renal stable nests the left IJ dialysis catheter was removed. On 05/18 postoperative day 4, patient continued to have improving mental status. She was ambulating more and got out of bed into the chair.
Diuresis was on hold per nephrology. On 05/19 postoperative day 5, patient's p.o. intake was improving her metoprolol tartrate was changed to her home dose of metoprolol succinate. On 05/20 postoperative day 6, patient was noted to be hypertensive
and was started on amlodipine. Patient was back to her baseline neurostatus and her pain medication regimen was resumed. Overall patient was deemed stable for discharge to an acute rehab. Epicardial wires were cut at the level of the skin.
Home medication changes:
see below
Discharge Plan
-
Patient Disposition: Acute Rehab Facility
Discharge Diagnosis/Procedures: CABGx 4 (In situ KESSLER to LAD, Ao to RSVG to OM to OM, Ao to RSVG to mid to distal RCA); Left atrial appendage exclusion by Dr. Cline on 05/14/25
Condition: Good
Diet: Low Cholesterol, 2 Gram Sodium and Diabetic, Carb Controlled
Activity: No strenuous activity
Driving Restrictions: Not until seen by your Dr
Bathing Restrictions: OK to Shower
Other Services: Cardiac Rehab
Specialty Instructions: Weigh Daily- Call MD for wt gain/loss 3 lbs overnight/5 lbs in 1 week
Activity Restrictions/Additional Instructions:
Wound Care Instructions
L inner/posterior thigh linear blister-silicone border foam, change q 3 days and prn loosened dressing. If blister breaks, clean gently with saline with each dressing change.
Evaluate for hospital bed with air mattress if needed.
Turning schedule
Pressure redistributing chair cushion (i.e. Air or gel chair cushion)
elevate heels off bed with pillow/s.
Follow up with CT surgeon.
Follow up at wound care center call for an appointment.
ACTIVITY:
-No strenuous activity: no heavy lifting, pushing, pulling anything over 15 pounds for one month
-continue to use stairs as tolerated
DRIVING RESTRICTIONS:
-No driving for one month or until approved by your surgeon
WOUND CARE:
-Shower daily. Use soap & water.
-No lotions, creams or powders on incision area.
DIET:
-continue a low fat/low cholesterol diet.
-IF you are diabetic, continue carb controlled diet.
CARDIAC REHAB:
-Please make appointment to start in 5-6 weeks with your local hospital program. (See Cardiac Rehabilitation Discharge Booklet).
SPECIALTY INSTRUCTIONS:
-Weigh yourself daily. Call your physician for any weight gain/loss of 3 lbs overnight or 5 lbs in one week.
-REPORT any clicking noise or uneven appearance of your sternum to your surgeon immediately.
-If you smoke, you are instructed to quit. The [place] smoking hotline phone number is [phone]
Referrals:
[facility] [Other]
[facility] [Outside] - 06/25/25 1:00 pm
Referral Note: Cardiac Rehab Orientation appointment is on 06/25/25 at 1:00 pm
The Cardiac Rehab gym is located on the first floor of the [facility].
Carol Sánchez PA-C [Specified Professional Personl, Cardiology] - 06/24/25 2:40 pm
Joaquin Carlton MD [Family Provider, Internal Medicine] - in four to six weeks
Referral Note: Please make an appointment in four to six weeks.
Edgardo Cline MD [Active, Cardiac Surgery] - 06/10/25 2:30 pm
Prescriptions:
New
sennosides [Sonja-james] 8.6 mg Tablet
8.6 mg PO Q12 Qty: 0 0RF
acetaminophen 325 mg Tablet
650 mg PO Q4HPRN PRN (Reason: mild pain,headache,temp >101F ) Qty: 0 0RF
amlodipine 5 mg Tablet
5 mg PO DAILY Qty: 0 0RF
tramadol 50 mg Tablet
25 mg PO Q6HPRN PRN (Reason: moderate to severe pain) Qty: 20 0RF
Insulin Glargine Lantus [Lantus] 22 UNITS
Subcutaneous Insulin Syringe [Syringe-Insulin] 0 UNIT
As Directed mls/hr SC BID
Ordered By: Melissa Marrero CRNP
Last Taken: 05/20/25 09:05 0.24 mls
insulin lispro 100 unit/mL cartridge
1 sliding scale dose SC DIRECTED Qty: 15 0RF
Continued
sodium bicarbonate 650 mg Tablet
650 mg PO BID
cholecalciferol (vitamin D3) [Vitamin D3] 50 mcg (2,000 unit) Tablet
50 mcg PO DAILY
atorvastatin 80 mg tablet
80 mg PO QPM
pregabalin 150 mg capsule
300 mg PO HS
pantoprazole [Protonix] 40 mg Tablet,Delayed Release (Dr/Ec)
40 mg PO DAILY
insulin aspart U-100 [Novolog FlexPen U-100 Insulin] 100 unit/mL (3 mL) Insulin Pen
5 unit SC AC Qty: 5 0RF
ipratropium-albuterol 0.5 mg-3 mg(2.5 mg base)/3 mL Solution For Nebulization
3 ml INHALATION R Q6HPRN PRN (Reason: sob)
calcitriol 0.25 mcg Capsule
0.25 mcg PO Q48H
aspirin 81 mg tablet,chewable
81 mg PO DAILY
metoprolol succinate 25 mg tablet extended release 24 hr
25 mg PO DAILY
ezetimibe 10 mg tablet
10 mg PO DAILY
clopidogrel [Plavix] 75 mg Tablet
75 mg PO DAILY
Held
coQ10 (ubiquinol) 200 mg Capsule
400 mg PO DAILY
Hold Instructions: Resume on 05/27/25.
Discontinued
tramadol 50 mg Tablet
50 mg PO Q6HPRN PRN (Reason: moderate pains)
furosemide [Lasix] 40 mg tablet
40 mg PO DAILY
insulin glargine [Basaglar KwikPen U-100 Insulin] 100 unit/mL (3 mL) insulin pen
24 unit SC BID
Discharge Orders:
Discharge Patient (As Directed); Ordered 05/20/25
Ordered By: Melissa Marrero
Care Plan Goals
Care Plan Goals:
Problem: Readiness for enhanced knowledge related to diagnosis and treatment plan
Goal: Understand your diagnosis and treatment plan needs, including medications if applicable.
Instructions: Know your diagnosis, underlying causes and treatment plan options, including medications if applicable. Consult with your health care team to learn about your diagnosis and treatment plan, including medications if applicable.
Discharge Date and Time
Print Language: GERMAN
--- NOTE | 2025-05-20 11:24 | W.PN.NEPH.PH ---
Today's Communication / Plan
-
follow BMP
Assessment/Plan
-
IMP:
NSTEMI
CHr CHFpEF
chronic ILD/fibrosis
JESI with CKD stage 4 (baseline Cr� 2.5)-follows Dr Cast
DM2
CAD hx of GA, hx of stents last in October 2024
HTN
DM
GERD
h/o ACEI angioedema
h/o Henoch-Schonlein purpura
Gastric bypass 2010
ALISHA, mild, with nocturnal hypoxemia
PAD, SFA stent Apr 2020
Plan:
now on amlodipine
follow BMP
follow BMP
-
-
Date of Service: May 20, 2025
CC / HPI / ROS
-
Chief Complaint:
Chest pain shortness of breath
History of Present Illness:
Creatinine stable at 2.2
Na normal
BP up still
Status post four-vessel CABG 05/14/2025
Hemodynamically stable off meds
Hemoglobin stable 8.9
Review of Systems:
Nonoliguric
No shortness of breath
Labs
-
Labs:
WBC 11.6 10^3/uL (4.8-10.8) H 05/19/25 03:56
RBC 3.19 10^6/uL (4.20-5.40) L 05/19/25 03:56
Hgb 8.9 g/dL (12.0-16.0) L 05/19/25 03:56
Hct 27.8 % (37.0-47.0) L 05/19/25 03:56
Plt Count 177 10^3/uL (130-400) 05/19/25 03:56
Sodium 143 mmol/L (135-145) 05/20/25 04:54
Potassium 4.4 mmol/L (3.5-5.1) 05/20/25 04:54
Chloride 113 mmol/L (98-107) H 05/20/25 04:54
Carbon Dioxide 26 mmol/L (22-30) 05/20/25 04:54
BUN 64 mg/dl (7-17) H 05/20/25 04:54
Creatinine 2.2 mg/dL (0.6-1.0) H 05/20/25 04:54
eGFR 22.81 05/20/25 04:54
Glucose 69 mg/dl (70-99) L 05/20/25 04:54
Calcium 8.3 mg/dl (8.4-10.2) L 05/20/25 04:54
Jtq-J-Spkewkwpnbt Pept 8100 pg/ml 05/06/25 16:21
Albumin 3.4 g/dl (3.5-5.0) L 05/10/25 05:29
Physical Exam
-
Vital Signs:
Vital Signs
Temp Pulse Resp BP Pulse Ox
97.7 F 69 16 174/56 97
05/20/25 08:00 05/20/25 09:00 05/20/25 08:00 05/20/25 08:47 05/20/25 08:47
Cardiovascular:: Regular rate and rhythm
Respiratory:: Bilateral: Coarse
Lung Excursion:: Normal
Abdomen:: Nontender and Soft
Bowel Sounds:: Normal
Extremity Edema:: +1: Bilateral:
--- NOTE | 2025-05-20 11:43 | CM ---
Chart reviewed. Patient was independent of ADLS, lives with her in a 3 [address], [facility], has a RW at home. PT evaluation recommending Acute Rehab. Referral sent to [facility]. Plan is for the patient to go to [facility]
--- NOTE | 2025-05-20 11:55 | PTCARENOTE ---
Epicardial V wire pulled by CT ALISON, Melina. Pt sent down for 2 view x-ray. Pt remains SR with HR 60's. BP 148/70 MAP 92. Pulse oximetry 97% on room air.
[2025-05-20 13:43] LABS: Glucose - Point of Care 70 mg/dl (70-99)
--- NOTE | 2025-05-20 14:24 | PTCARENOTE ---
Pt with discharge order. Report called to [facility]. Pt stable at discharge. Peripheral IV's and tele monitor removed.
--- NOTE | 2025-05-21 18:38 | W.PN.CARDCBS ---
Today's Communication / Plan
-
discharge planning
Impression / Plan
-
.
PCP: Dr. Carlton
Shed Hand: Dr. VICKY Danielson
Impression:
Admitted with chest pain and NSTEMI 05/06/2025
NSTEMI, peak troponin 24.9
s/p CABG x 4 (In situ KESSLER to LAD, Ao to RSVG to OM to OM, Ao to RSVG to mid to distal RCA with ERNST exclusion 05/14/2025
JESI on CKD 4
Admission for acute HF and elevated troponin 11/26/24 until 11/28/2024
Admission for NSTEMI, MV CAD with distal LM into circumflex and distal LM into proximal LAD PCI, acute HF and JESI 10/29/2024 until 11/16/2024
Abnormal LFTs, elevated AST
CAD
s/p 2.5 mm Xience OM1 PCI 02/12/2019
s/p Xience prox and overlapping previously placed distal OM-1 05/17/2019
s/p 2.5 mm Xience OM1 PCI 01/20/21
NSTEMI, s/p complex MATT distal LM into LCx/OM1 3.0 x 22 mm Medtronics Hernan drug-eluting stent and from distal LM into proximal LAD 2.75 x 18 mm Medtronic Hernan drug-eluting stent 11/14/2024
PAD
s/p R common femoral endarterectomy w/ patch angioplasty and covered R iliac stent 01/2024
s/p right SFA angioplasty and stent 04/2020
Accelerated in-stent restenosis of the distal LM into the ostial LAD and ostial circumflex with stable 60 to 70% ostial RCA lesion by cardiac cath 05/08/2025
h/o COVID 19 w/ residual parenchymal scarring
HTN
HLD
DM2
h/o Henoch-Sanna�nlein purpura
Glaucoma
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
h/o gastric bypass 2010
h/o angioedema on ZAY inhibitors
Aortic atherosclerosis
h/o orthostasis on Terazosin
h/o TIA 2016
Iron deficiency anemia
Echo 08/06/2020: EF 64%. Mild LVH. Normal RV. Mild MAC with mild MR. No AI or . Trace TR. PAP 29 mmHg
Echo 01/19/2021: EF 55-60%, stage I diastolic dysfunction, trace MR, trace TR, PAP 21 mmHg
Echo 10/29/2024: EF 40-45%, Stage I diastolic dysfunction, mild inferolateral and inferior hypokinesis
Echo 11/14/2024: EF 50 to 55%. No significant valvular disease. No pericardial effusion.
Echo 05/07/2025: EF 40 to 45%, inferior and inferolateral hypokinesis, normal RV size and function, mild MR, compared to echo from 11/14/2024 the EF is now reduced
Cardiac cath 11/01/2024: Left main 60% distal. LAD 40% ostial. Circumflex: Hazy 80% ostial, stents in OM1 with moderate diffuse ISR, smaller daughter branch of OM1 with 70% stenosis. RCA 60 to 70% ostial stenosis
Cardiac cath 11/14/2024: Successful complex percutaneous coronary artery intervention with one 3.0 x 22 mm Medtronics Hernan drug-eluting stent from distal left main into left circumflex artery/OM1 and a second 2.75 x 18 mm Medtronic Hernan drug-eluting
stent from distal left main into proximal LAD
Cardiac cath 05/08/25: Accelerated restenosis (ISR) with distal LM extending into ostial LAD (70-80%) and ostial LCx (95%), 60-70% stable ostial RCA stenosis.
Plan:
Plan:
Overall doing well now postop day 6
Neurologic status seems close to baseline at this time
Creatinine also close to baseline at this time, hemodialysis catheter was discontinued
Okay to work on discharge planning
Appreciate efforts of CT surgery
Hemoglobin yesterday 8.9, sodium now in normal range
Patient came to the ER yesterday with chest pain and initial troponin was 1.65 and has now trended up to 23.2 prompting cardiology consultation for NSTEMI. Patient had a prolonged admission from 10/29/2024 until 11/16/2024 for NSTEMI and cardiac cath
showed MV CAD. Patient was initially seen in consultation by CT surgery and there is consideration for CABG, but this was ultimately deferred due to JESI on CKD and patient instead had high risk PCI with stenting of the distal left main into the
circumflex and distal left main into the proximal LAD on 11/14/2024. Patient was discharged home and then readmitted 2 weeks later with acute HF and CKD. Patient was then doing well and had last seen Dr. Danielson in the office on 01/31/2025. 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
for her and she started that job last week. In the meantime patient called the office with chest pain on 04/23/2025 and was advised to go to the ER for evaluation given her complex CAD history, she ended up not going to the ER because she was
afraid she would miss her first day of work. Instead she was taking NTG SL several times a day for chest pain. Chest pain is described as being present on a daily basis and comes and goes throughout the day, it is a deep aching feeling and feels
similar to her previous [place] pain. She finally came to the ER last night because she ran out of her NTG SL tablets and the pharmacy would not refill her prescription. She is distressed because she only had 2 days at her new job before she had to
come to the ER and is now missing work. Despite this she is pain-free on heparin gtt and Nitropaste. Initial troponin is 1.65 and now up to 23.2.
Progress Note - Shed Hand
Subjective
Date of Service: May 21, 2025
75-year-old woman with long and complex cardiac history including multivessel CAD and numerous circumflex intervention, most recently left main into circumflex PCI in October admitted May 06 with non-ST segment elevation [place], peak troponin 23, now
postop day 6 status post CABG
PMH: Diabetes, gastric bypass,, stage IV CKD, PAD, hypertension, hyperlipidemia, Henoch- Schonlein Purpura, celiac compression,, orthostasis
Current meds: Reviewed
Some discomfort last night, labile blood pressure, amlodipine added
147/58, pulse 59, weight is 69.7 kg, pleasant, awake, alert, incision intact, crackles in lung bases, JVD okay, regular rate and rhythm without rub abdomen benign extremities without clubbing cyanosis or edema pulses mildly diminished
Chest x-ray poor inspiration 05/19 left atrial appendage clip
BUN/creatinine are 64 and 2.2, potassium is 4.4, mag is 2.7, hemoglobin is 8.9
Objective
Labs:
05/19/25 03:56
05/20/25 04:54
Labs
Hgb 8.9 g/dL (12.0-16.0) L 05/19/25 03:56
Hct 27.8 % (37.0-47.0) L 05/19/25 03:56
Plt Count 177 10^3/uL (130-400) 05/19/25 03:56
PT 21.2 Sec (11.4-14.6) H 05/14/25 12:39
INR 1.81 05/14/25 12:39
APTT 52.1 Sec (23.4-35.0) H 05/14/25 12:39
Sodium 143 mmol/L (135-145) 05/20/25 04:54
Potassium 4.4 mmol/L (3.5-5.1) 05/20/25 04:54
BUN 64 mg/dl (7-17) H 05/20/25 04:54
Creatinine 2.2 mg/dL (0.6-1.0) H 05/20/25 04:54
Glucose 69 mg/dl (70-99) L 05/20/25 04:54
Vital Signs and I&O:
Vital Signs
Temp Pulse Resp BP Pulse Ox
36.6 C 59 18 148/70 97
05/20/25 12:24 05/20/25 12:24 05/20/25 12:24 05/20/25 11:36 05/20/25 12:24
Vital Signs
Temp Pulse Resp BP Pulse Ox
36.6 C 59 18 148/70 97
05/20/25 12:24 05/20/25 12:24 05/20/25 12:24 05/20/25 11:36 05/20/25 12:24
Intake & Output
05/19/25 05/20/25 05/21/25 05/22/25
07:59 07:59 07:59 07:59
Intake Total 200 / 200
Output Total 900 / 1250 1150 / 1150 650 / 650
Balance -700 / -1050 -1150 / -1150 -650 / -650
Physical Exam
Physical Exam
see above
== END 2025-05-20 14:26 | DRG 233 ==
LOC: CVICU 18:32
PROVIDERS: Clinical Nurse Specialist Acute Care; General Practice; Internal Medicine Cardiovascular Disease; Internal Medicine Interventional Cardiology; Nurse Practitioner; Nurse Practitioner Adult Health; Nurse Practitioner Family; Physician Assistant; Physician Assistant Medical; Registered Nurse; Student in an Organized Health Care Education/Training Program; ADMITTING PHYSICIAN Internal Medicine; ATTENDING PHYSICIAN Thoracic Surgery (Cardiothoracic Vascular Surgery); CONSULT PHYSICIAN Internal Medicine; EMERGENCY PHYSICIAN Emergency Medicine; FAMILY PHYSICIAN Internal Medicine; OTHER PHYSICIAN Internal Medicine Cardiovascular Disease
PROC: 4A023N7 Measurement of Cardiac Sampling and Pressure, Left Heart, Percutaneous Approach (ICD-10-PCS; 2025-05-08)
PROC: B2111ZZ Fluoroscopy of Multiple Coronary Arteries using Low Osmolar Contrast (ICD-10-PCS; 2025-05-08)
PROC: 5A02210 Assistance with Cardiac Output using Balloon Pump, Continuous (ICD-10-PCS; 2025-05-10)
PROC: 30233N1 Transfusion of Nonautologous Red Blood Cells into Peripheral Vein, Percutaneous Approach (ICD-10-PCS; 2025-05-12)
PROC: B24BZZ4 Ultrasonography of Heart with Aorta, Transesophageal (ICD-10-PCS; 2025-05-14)
PROC: 02L70CK Occlusion of Left Atrial Appendage with Extraluminal Device, Open Approach (ICD-10-PCS; 2025-05-14)
PROC: 02H633Z Insertion of Infusion Device into Right Atrium, Percutaneous Approach (ICD-10-PCS; 2025-05-14)
PROC: 06BQ4ZZ Excision of Left Saphenous Vein, Percutaneous Endoscopic Approach (ICD-10-PCS; 2025-05-14)
PROC: 5A1221Z Performance of Cardiac Output, Continuous (ICD-10-PCS; 2025-05-14)
PROC: 021209W Bypass Coronary Artery, Three Arteries from Aorta with Autologous Venous Tissue, Open Approach (ICD-10-PCS; 2025-05-14)
PROC: 06BP4ZZ Excision of Right Saphenous Vein, Percutaneous Endoscopic Approach (ICD-10-PCS; 2025-05-14)
PROC: 02100Z9 Bypass Coronary Artery, One Artery from Left Internal Mammary, Open Approach (ICD-10-PCS; 2025-05-14)
DX: T82.855A Stenosis of coronary artery stent, initial encounter (principal); I21.4 Non-ST elevation (NSTEMI) myocardial infarction; I50.23 Acute on chronic systolic (congestive) heart failure; J95.1 Acute pulmonary insufficiency following thoracic surgery; E87.20 Acidosis, unspecified; I13.0 Hypertensive heart and chronic kidney disease with heart failure and stage 1 through stage 4 chronic kidney disease, or unspecified chronic kidney disease; N18.4 Chronic kidney disease, stage 4 (severe); N17.9 Acute kidney failure, unspecified; D62 Acute posthemorrhagic anemia; E87.0 Hyperosmolality and hypernatremia; J98.11 Atelectasis; E87.1 Hypo-osmolality and hyponatremia; I25.118 Atherosclerotic heart disease of native coronary artery with other forms of angina pectoris; Y83.1 Surgical operation with implant of artificial internal device as the cause of abnormal reaction of the patient, or of later complication, without mention of misadventure at the time of the procedure; E11.22 Type 2 diabetes mellitus with diabetic chronic kidney disease; E11.51 Type 2 diabetes mellitus with diabetic peripheral angiopathy without gangrene; J84.10 Pulmonary fibrosis, unspecified; D63.1 Anemia in chronic kidney disease; E78.00 Pure hypercholesterolemia, unspecified; D50.9 Iron deficiency anemia, unspecified; I25.5 Ischemic cardiomyopathy; D69.59 Other secondary thrombocytopenia; E86.1 Hypovolemia; R74.01 Elevation of levels of liver transaminase levels; Y83.2 Surgical operation with anastomosis, bypass or graft as the cause of abnormal reaction of the patient, or of later complication, without mention of misadventure at the time of the procedure; T41.1X5A Adverse effect of intravenous anesthetics, initial encounter; K21.9 Gastro-esophageal reflux disease without esophagitis; G47.33 Obstructive sleep apnea (adult) (pediatric); U09.9 Post COVID-19 condition, unspecified; H40.9 Unspecified glaucoma; R23.8 Other skin changes; L89.151 Pressure ulcer of sacral region, stage 1; Z87.01 Personal history of pneumonia (recurrent); Z98.84 Bariatric surgery status; Z82.49 Family history of ischemic heart disease and other diseases of the circulatory system; I25.2 Old myocardial infarction; Z86.73 Personal history of transient ischemic attack (TIA), and cerebral infarction without residual deficits; Z79.02 Long term (current) use of antithrombotics/antiplatelets; Z79.82 Long term (current) use of aspirin; Z79.4 Long term (current) use of insulin
CPT/HCPCS: 33967; 70450; 71045; 71046; 71250; 80048; 80053; 80061; 80076; 81003; 81015; 82140; 82247; 82330; 82565; 82805; 82810; 82947; 82962; 83605; 83735; 83880; 84075; 84132; 84302; 84450; 84460; 84484; 84520; 85014; 85018; 85025; 85027; 85049; 85576; 85610; 85730; 86850; 86900; 86901; 86920; 87077; 87086; 87186; 93005; 93306; 93312; 93320; 93325; 93458; 94002; 94003; 94060; 94727; 94729; 97116; 97163; 97167; 97530; 99152; 99153; 99291; C1769; C1894; J1250; J2916; P9016; P9045; Q9967

== ENCOUNTER 2025-06-25 17:22 | Outpatient (RCR) | payer MEDICARE, OTHER, SELFPAY ==
[2025-06-25 13:48] LABS: Glucose - Point of Care 333 mg/dl (70-99)
[2025-06-25 14:23] LABS: Glucose - Point of Care 314 mg/dl (70-99)
== END 2025-06-25 23:59 | disposition home or self-care (01) ==
LOC: CRHB 17:22
PROVIDERS: ATTENDING PHYSICIAN Internal Medicine Cardiovascular Disease; FAMILY PHYSICIAN Internal Medicine
DX: I25.10 Atherosclerotic heart disease of native coronary artery without angina pectoris (principal); Z95.1 Presence of aortocoronary bypass graft
CPT/HCPCS: 82962; G0422